=== PATIENT | male | born 1965 | race Caucasian/White ===

== ENCOUNTER 2022-06-01 04:51 | Inpatient (IN) | payer OTHER, SELFPAY ==
--- NOTE | 2022-06-01 05:20 | ER ---
Nurse's Notes [facility] Name: Cristobal Eduardo Age: 57 yrs Sex: Male : 1965 Arrival Date: 06/01/2022 Time: 04:53 Bed 19 Private MD: Diagnosis: Essential (primary) hypertension;Suicidal ideations;Suicide attempt-OVERDOSE CELEXA/Risperdone;Acute kidney failure, unspecified Presentation: 06/01 04:57 Chief complaint: EMS states: "We were called out to a man who allegedly took 40 vc1 citalopram and 10 Risperdal because he wanted to .". 04:57 Method Of Arrival: EMS: [facility] vc1 04:59 Chief complaint: Patient states: "I was afraid I was going to get in trouble when I vc1 went into work tomorrow so I took 40 Citalopram and 10 Risperdal.". Initial Sepsis Screen: Does the patient meet any 2 criteria? RR > 20 per min. HR > 90 bpm. Yes Does the patient have a suspected source of infection? No. Patient's initial sepsis screen is negative. Risk Assessment: Do you want to hurt yourself or someone else? Patient reports no desire to harm self or others. Onset of symptoms was May 31, 2022 at 19:30. 04:59 Acuity: SOCORRO 2 vc1 05:01 Coronavirus screen: Vaccine status: Patient reports receiving the 2nd dose of the covid vc1 vaccine. [employer]. Ebola Screen: No symptoms or risks identified at this time. 05:05 Note Poison control called spoke to Mally from [place], , aa9 recommendation to provided EKG now and repeat EKG in 2h, high seizure risk, HTN risk, 13 hours observation, cardiac monitoring,and supportive care. Triage Assessment: 05:01 General: Appears distressed, uncomfortable, obese, unkempt, Behavior is cooperative, vc1 anxious, Smells of Urine. 05:01 Pain: Denies pain. EENT: Eyes with exudate noted from outer aspect of conjuctiva of vc1 right eye. Neuro: Level of Consciousness is awake, obeys commands, Oriented to person, place, time, situation, Appropriate for age Gear Machine Operator are equal bilaterally Weakness leg(s) Gait is unable to access. Speech is normal, Pupils are constricted. Cardiovascular: Reports diaphoresis, Denies chest pain, Rhythm is sinus tachycardia. Respiratory: Airway is patent Respiratory effort is even, unlabored, Respiratory pattern is tachypnea. GI: No deficits noted. : patient underwear soaked in urine. Derm: Skin is intact, Skin is diaphoretic, Skin is pale, Skin temperature is cool. Musculoskeletal: Reports weakness in right leg and left leg. Historical: - Allergies: 05:01 No Known Allergies; vc1 - PMHx: 05:01 Hypertensive disorder; Pre-diabetic; vc1 - PSHx: 05:01 None; vc1 - Immunization history:: Adult Immunizations up to date. - Social history:: Smoking status: Patient denies any tobacco usage or history of. - Family history:: not pertinent. Screenin:01 Abuse screen: Denies threats or abuse. Nutritional screening: No deficits noted. vc1 Tuberculosis screening: No symptoms or risk factors identified. Fall Risk None identified. Assessment: 05:30 Reassessment: No changes from previously documented assessment. vc1 06:30 Reassessment: No changes from previously documented assessment. Patient and/or family vc1 updated on plan of care and expected duration. Pain level reassessed. Neuro: Level of Consciousness is awake, obeys commands. Respiratory: Respiratory effort is even, unlabored, Respiratory pattern is tachypnea. 07:18 General: Appears in no apparent distress. comfortable, Behavior is calm, cooperative. tp1 General: appears diaphoretic, denies chest pain, provider notified. . 07:55 Reassessment: 373.61 residual urine reported by video game technician. tp1 08:01 Reassessment: voided 2 mL, provider notified. tp1 08:36 Reassessment: appears diaphoretic and shaking. PT reports being shaking since SI tp1 attempt. 08:55 Reassessment: Shannon from Poison control Called back for a reassessment of patient tp1 status. recommended giving Magnesium for prolongated QT interval. provider notified. 08:58 Reassessment: No changes from previously documented assessment. Patient and/or family tp1 updated on plan of care and expected duration. Pain level reassessed. mother at bedside Patient denies pain at this time. 15:54 Reassessment: Tanna from poison control updated regarding PT status. tp1 17:08 Reassessment: attempted to give report. tp1 17:19 Reassessment: attempted to give report. tp1 17:22 Reassessment: Charge, Cristela ZAPATA, left message with Salbador. tp1 17:24 Reassessment: attempted to give report to Kena ZAPATA. tp1 17:44 Reassessment: report given to Jean Claude ZAPATA. tp1 Psych: 06:48 [place] Suicide Severity Screening: In the past month, have you wished you were vc1 or wished you could go to sleep and not wake up? Patient responds "yes." Based off the client's responses additional C-SSRS screening is required. "In the past month, have you actually had any thoughts of killing yourself?" Patient responds "yes." Based off the client's response additional [place] suicide severity screening questions to be further documented on paper forms. "In your lifetime, have you ever done anything, started to do anything, or prepared to do anything to end your life?" Patient responds "yes." Patient reports suicidal intent occurred greater than 3 months prior. Pt stated, "A year ago I also took pills trying to kill myself but afterwards I got scared and called 911.". Subjective: Patient's mood is sad, Delusions are denied, Hallucinations are denied Having thoughts of suicide. Plan for suicide is Take pills. Objective: Patient is cooperative, using poor eye contact, Speech is normal, Affect is flat. Interventions: Removed personal items and placed in bag. Patient placed in hospital gown. Searched person for dangerous items. Safety Checks: Personal items have been removed. Door is open. No visitors are present at this time. Pt denies substance abuse. Commitment: Patient will be an involuntary commitment. Commitment papers completed. Vital Signs: 04:57 BP 193 / 114; Pulse 114; Resp 38; Temp 98.4(O); Pulse Ox 97% on R/A; Weight 113.4 kg; vc1 Height 5 ft. 5 in. (165.10 cm); Pain 0/10; 05:00 BP 165 / 104; Pulse 113; Resp 23; Pulse Ox 96% ; vc1 06:00 BP 178 / 116; Pulse 106; Resp 39; Pulse Ox 96% ; vc1 06:30 BP 173 / 109; Pulse 108; Resp 35; Pulse Ox 95% ; vc1 07:11 BP 183 / 102; Pulse 108; Resp 36; Pulse Ox 100% on R/A; tp1 08:00 BP 194 / 104; Pulse 103; Resp 36; Pulse Ox 93% on R/A; tp1 09:00 BP 176 / 93; Pulse 120; Resp 39; Pulse Ox 96% on R/A; tp1 04:57 Body Mass Index 41.60 (113.40 kg, 165.10 cm) vc1 ED Course: 04:53 Patient arrived in ED. vc1 04:56 Vladimir Hernandez MD is Attending Physician. osorio 05:01 Triage completed. vc1 05:01 Arm band placed on left wrist. vc1 05:01 Patient has correct armband on for positive identification. Placed in gown. Bed in low vc1 position. Side rails up X2. Seizure precautions initiated. Client placed on continuous cardiac and pulse oximetry monitoring. NIBP monitoring applied. Warm blanket given. 05:01 Patient is placed in psych hold. vc1 05:18 Josseline Srivastava, BENNY is Primary Nurse. aa9 05:26 Chest Single View XRAY In Process Unspecified. EDMS 07:15 Safety Checks: Personal items have been removed. The door is open or patient has been tp1 placed in a hallway bed/chair. There are no family/friend visitors at this time Sitter present at this time. 07:21 Khai Smith MD is Hospitalizing Provider. [facility] 08:07 US Rp Exam Complete In Process Unspecified. EDMS 08:08 Urinary Bladder In Process Unspecified. EDMS 08:09 Notified ED physician of other report post void bladder scan 373. [id number] 08:14 Safety Checks: Personal items have been removed. The door is open or patient has been tp1 placed in a hallway bed/chair. There are no family/friend visitors at this time Sitter present at this time. 08:16 Coud inserted, using sterile technique, 16 Fr. Returned clear yellow urine. To gravity tp1 drainage. inserted by Dr. Hernandez. 08:35 Assisted to bathroom. Linen changed. tp1 09:14 Safety Checks: Personal items have been removed. The door is open or patient has been tp1 placed in a hallway bed/chair. A family member and/or friend is present and encouraged to stay. Sitter present at this time. 16:53 Primary Nurse role handed off by Josseline Srivastava RN tp1 16:53 Leidy Wade, RN is Primary Nurse. tp1 17:57 No provider procedures requiring assistance completed. Patient admitted, IV remains in tp1 place. Administered Medications: 05:24 Drug: NS 0.9% 1000 ml Route: IV; Rate: 1 bolus; Site: left antecubital; as6 08:35 Drug: Norvasc (amlodipine) 10 mg Route: PO; tp1 14:15 Follow up: Response: Blood pressure is lowered tp1 09:01 Drug: Flomax (tamsulosin) 0.4 mg Route: PO; tp1 14:16 Follow up: Response: No adverse reaction tp1 09:02 Drug: Insulin Regular Human 5 units {Co-Signature: vg1 (Kristen Rosas RN).} {Note: tp1 adminsinstered R deltoid SQ, Lorin RN notified.} Route: IVP; Site: Other; 14:15 Follow up: Response: Blood sugar is lowered tp1 09:04 Drug: Rocephin (cefTRIAXone) 1 grams Route: IV; Rate: per protocol; Site: left forearm; tp1 09:57 Follow up: IV Status: Completed infusion; IV Intake: 100ml tp1 14:16 Follow up: Response: No adverse reaction tp1 14:14 Not Given (VO to discontinue from Dr. Bautista): Semaglutide Pen Injector 25 mg Sub-Q tp1 once Medication: 06:48 VIS not applicable for this client. vc1 Intake: 09:57 IV: 100ml; Total: 100ml. tp1 Outcome: 05:19 ER care complete, transfer ordered by . osorio 07:23 Decision to Hospitalize by Provider. osorio 17:57 Admitted to Med/surg accompanied by tech, family with patient, via stretcher, Report tp1 called to Jean Claude ZAPATA 17:57 Condition: good 17:57 Instructed on the need for admit, Demonstrated understanding of instructions. 17:58 Patient left the ED. tp1 Signatures: Dispatcher [employer] EDVladimir Solo MD MD cha Davies, Jonathon, RN RN jd3 Slawson, Ashby, RN RN as6 Leidy Wade RN RN tp1 Lauryn Goddard RN RN vc1 Josseline Srivastava, RN RN aa9 Kristen Rosas RN vg1 Corrections: (The following items were deleted from the chart) 06:48 06:46 Arm band placed on left wrist. vc1 vc1 08:58 08:55 Reassessment: Poison control Called back for a reassessment of patient status. tp1 recommended giving Magnesium for prolongated QT interval. provider notified. tp1 17:33 15:54 Reassessment: Tanna from poison control updated regarding tp1 tp1
--- NOTE | 2022-06-01 05:21 | EDPHYS ---
Physician Documentation [facility] Name: Cristobal Eduardo Age: 57 yrs Sex: Male : 1965 Arrival Date: 06/01/2022 Time: 04:53 Bed 19 Private MD: ED Physician Vladimir Hernandez HPI: 06/01 05:10 This 57 yrs old Male presents to ER via EMS with complaints of suicidal osorio ideation/overdose. 05:10 The patient presents to the emergency department with depression, a history of a osorio suicide gesture, where the patient took pills/medications, 40 celexa/10 resperdial, suicide ideation. Onset: The symptoms/episode began/occurred 10 hour(s) ago. Past psychiatric history: Prior diagnosis: depression, Psychiatric medications include:. took pills, upset , fears trouble at work. Associated signs and symptoms: The patient has no apparent associated signs or symptoms. Onset: The symptoms/episode began/occurred 1 day(s) ago. Severity of symptoms: At their worst the symptoms were mild in the emergency department the symptoms are unchanged. The patient has experienced similar episodes in the past, a few times. Historical: - Allergies: 05:01 No Known Allergies; vc1 - PMHx: 05:01 Hypertensive disorder; Pre-diabetic; vc1 - PSHx: 05:01 None; vc1 - Immunization history:: Adult Immunizations up to date. - Social history:: Smoking status: Patient denies any tobacco usage or history of. - Family history:: not pertinent. ROS: 05:10 Constitutional: Negative for fever, chills, and weight loss, Eyes: Negative for injury, osorio pain, redness, and discharge, ENT: Negative for injury, pain, and discharge, Neck: Negative for injury, pain, and swelling, Cardiovascular: Negative for chest pain, palpitations, and edema, Respiratory: Negative for shortness of breath, cough, wheezing, and pleuritic chest pain, Abdomen/GI: Negative for abdominal pain, nausea, vomiting, diarrhea, and constipation, Back: Negative for injury and pain, : Negative for injury, bleeding, discharge, and swelling, MS/Extremity: Negative for injury and deformity, Skin: Negative for injury, rash, and discoloration, Neuro: Negative for headache, weakness, numbness, tingling, and seizure, Allergy/Immunology: Negative for hives, rash, and allergies, Endocrine: Negative for neck swelling, polydipsia, polyuria, polyphagia, and marked weight changes, Hematologic/Lymphatic: Negative for swollen nodes, abnormal bleeding, and unusual bruising. 05:10 Psych: Positive for anxiety, depression, suicide gesture, suicidal ideation. Exam: 05:10 Constitutional: This is a well developed, well nourished patient who is awake, alert, osorio and in no acute distress. Head/Face: Normocephalic, atraumatic. Eyes: Pupils equal round and reactive to light, extra-ocular motions intact. Lids and lashes normal. Conjunctiva and sclera are non-icteric and not injected. Cornea within normal limits. Periorbital areas with no swelling, redness, or edema. ENT: Nares patent. No nasal discharge, no septal abnormalities noted. Tympanic membranes are normal and external auditory canals are clear. Oropharynx with no redness, swelling, or masses, exudates, or evidence of obstruction, uvula midline. Mucous membranes moist. Neck: Trachea midline, no thyromegaly or masses palpated, and no cervical lymphadenopathy. Supple, full range of motion without nuchal rigidity, or vertebral point tenderness. No Meningismus. Chest/axilla: Normal chest wall appearance and motion. Nontender with no deformity. No lesions are appreciated. Abdomen/GI: Soft, non-tender, with normal bowel sounds. No distension or tympany. No guarding or rebound. No evidence of tenderness throughout. Back: No spinal tenderness. No costovertebral tenderness. Full range of motion. Male : Normal genitalia with no discharge or lesions. MS/ Extremity: Pulses equal, no cyanosis. Neurovascular intact. Full, normal range of motion. Neuro: Awake and alert, GCS 15, oriented to person, place, time, and situation. Cranial nerves II-XII grossly intact. Motor strength 5/5 in all extremities. Sensory grossly intact. Cerebellar exam normal. Normal gait. 05:10 Cardiovascular: Rate: tachycardic, Rhythm: regular, Pulses: Pulses are 4+ in . Heart sounds: normal, Edema: is not appreciated, JVD: is not appreciated. 05:10 ECG was reviewed by the Attending Physician. 07:17 ECG was reviewed by the Attending Physician. [facility] Vital Signs: 04:57 BP 193 / 114; Pulse 114; Resp 38; Temp 98.4(O); Pulse Ox 97% on R/A; Weight 113.4 kg; vc1 Height 5 ft. 5 in. (165.10 cm); Pain 0/10; 05:00 BP 165 / 104; Pulse 113; Resp 23; Pulse Ox 96% ; vc1 06:00 BP 178 / 116; Pulse 106; Resp 39; Pulse Ox 96% ; vc1 06:30 BP 173 / 109; Pulse 108; Resp 35; Pulse Ox 95% ; vc1 07:11 BP 183 / 102; Pulse 108; Resp 36; Pulse Ox 100% on R/A; tp1 08:00 BP 194 / 104; Pulse 103; Resp 36; Pulse Ox 93% on R/A; tp1 09:00 BP 176 / 93; Pulse 120; Resp 39; Pulse Ox 96% on R/A; tp1 04:57 Body Mass Index 41.60 (113.40 kg, 165.10 cm) vc1 Procedures: 08:17 Coud inserted by myself - 16 Fr. Urine output = 300 ml's. Patient tolerated well. osorio MDM: 04:56 Patient medically screened. osorio 05:21 Differential diagnosis: drug withdrawal. acute psychotic break, depression, psychosis osorio secondary to non-compliance. Differential Diagnosis altered mental status. Data reviewed: vital signs, nurses notes, lab test result(s), EKG, radiologic studies, CT scan, plain films. Data interpreted: bus driver/monitor: rate is 114 beats/min, rhythm is regular, Pulse oximetry: on room air is 97 %. Test interpretation: by ED physician or midlevel provider: ECG, plain radiologic studies. Counseling: I had a detailed discussion with the patient and/or guardian regarding: the historical points, exam findings, and any diagnostic results supporting the discharge/admit diagnosis, lab results, radiology results. 06/01 05:09 Order name: Acetaminophen; Complete Time: 07:14 osorio 06/01 05:09 Order name: Basic Metabolic Panel; Complete Time: 07:14 osorio 06/01 05:09 Order name: CBC with Diff; Complete Time: 07:14 osorio 06/01 05:09 Order name: ETOH Level; Complete Time: 07:14 osorio 06/01 05:09 Order name: Hepatic Function; Complete Time: 07:14 osorio 06/01 05:09 Order name: PT-INR; Complete Time: 07:14 [facility] 06/01 05:09 Order name: Ptt, Activated; Complete Time: 07:14 [facility] 06/01 05:09 Order name: Salicylate; Complete Time: 07:14 [facility] 06/01 05:09 Order name: Urine Drug Screen; Complete Time: 08:16 [facility] 06/01 05:09 Order name: SARS RAPID; Complete Time: 07:14 [facility] 06/01 05:09 Order name: BNP; Complete Time: 07:14 [facility] 06/01 07:43 Order name: Urine Dipstick-Ancillary; Complete Time: 08:16 EDMS 06/01 09:17 Order name: CBC with Automated Diff EDMS 06/01 09:17 Order name: CBC with Automated Diff EDMS 06/01 05:09 Order name: Chest Single View XRAY [facility] 06/01 07:34 Order name: US Rp Exam Complete [facility] 06/01 08:08 Order name: Urinary Bladder EDMS 06/01 09:17 Order name: Comprehensive Metabolic Panel EDMS 06/01 09:17 Order name: Comprehensive Metabolic Panel EDMS 06/01 09:17 Order name: Magnesium EDMS 06/01 09:17 Order name: Magnesium EDMS 06/01 09:17 Order name: Phosphorus EDMS 06/01 09:17 Order name: Phosphorus EDMS 06/01 09:19 Order name: Magnesium EDMS 06/01 12:37 Order name: Glucose, Ancillary Testing EDMS 06/01 16:38 Order name: Glucose, Ancillary Testing EDMS 06/01 05:09 Order name: EKG; Complete Time: 05:10 [facility] 06/01 05:09 Order name: EKG - Nurse/Tech; Complete Time: 05:47 [facility] 06/01 05:09 Order name: IV Saline Lock; Complete Time: 05:47 [facility] 06/01 05:09 Order name: Labs collected and sent; Complete Time: 05:47 [facility] 06/01 05:09 Order name: Suicide Precautions; Complete Time: 06:42 [facility] 06/01 05:09 Order name: Suicide Screening ([place]); Complete Time: 06:42 [facility] 06/01 05:09 Order name: Urine Dipstick-Ancillary (obtain specimen); Complete Time: 16:52 [facility] 06/01 05:21 Order name: King; Complete Time: 16:51 [facility] 06/01 06:34 Order name: Diet Finger Food; Complete Time: 06:34 lg3 06/01 07:34 Order name: Bladder Scanner: if pvr greater than 100, place king; Complete Time: 16:51 osorio 06/01 08:16 Order name: Seizure Precautions; Complete Time: 08:17 osorio 06/01 09:17 Order name: Regular EDMS 06/01 10:07 Order name: Diet Finger Food; Complete Time: 10:08 tp1 06/01 15:57 Order name: Diet Finger Food; Complete Time: 22:31 em6 EC:17 Rate is 103 beats/min. Rhythm is regular. QRS [place] is Normal. OK interval is normal. osorio QRS interval is normal. QT interval is prolonged at 544 msec. No Q waves. T waves are Normal. No ST changes noted. Clinical impression: NSR w/ Non-specific ST/T Changes and No evidence of ischemia. Interpreted by me. Reviewed by me. Administered Medications: 05:24 Drug: NS 0.9% 1000 ml Route: IV; Rate: 1 bolus; Site: left antecubital; as6 08:35 Drug: Norvasc (amlodipine) 10 mg Route: PO; tp1 14:15 Follow up: Response: Blood pressure is lowered tp1 09:01 Drug: Flomax (tamsulosin) 0.4 mg Route: PO; tp1 14:16 Follow up: Response: No adverse reaction tp1 09:02 Drug: Insulin Regular Human 5 units {Co-Signature: vg1 (Kristen Rosas RN).} {Note: tp1 adminsinstered R deltoid SQ, Lorin ZAPATA notified.} Route: IVP; Site: Other; 14:15 Follow up: Response: Blood sugar is lowered tp1 09:04 Drug: Rocephin (cefTRIAXone) 1 grams Route: IV; Rate: per protocol; Site: left forearm; tp1 09:57 Follow up: IV Status: Completed infusion; IV Intake: 100ml tp1 14:16 Follow up: Response: No adverse reaction tp1 14:14 Not Given (VO to discontinue from Dr. Bautista): Semaglutide Pen Injector 25 mg Sub-Q tp1 once Disposition Summary: 06/01/22 07:23 Hospitalization Ordered Hospitalization Status: Inpatient Admission osorio Provider: Khai Smith osorio Condition: Fair(09/06/22 07:23) osorio Problem: new(06/01/22 07:23) osorio Symptoms: have improved(06/01/22 07:23) osorio Bed/Room Type: Standard osorio Location: Telemetry/MedSurg (Inpatient)(06/01/22 16:58) em1 Room Assignment: 401(06/01/22 16:58) em1 Diagnosis - Essential (primary) hypertension osorio - Suicidal ideations(06/01/22 07:23) osorio - Suicide attempt - OVERDOSE CELEXA/Risperdone(06/01/22 07:23) osorio - Acute kidney failure, unspecified osorio Forms: - Medication Reconciliation Form osorio - SBAR form osorio Signatures: Dispatcher [employer] EDMS Vladimir Hernandez MD MD cha Martinez, Eric em1 Aryan Valentino, BENNY RN as6 Leidy Wade RN RN tp1 Lauryn Goddard RN RN vc1 Kristen Rosas RN vg1 Corrections: (The following items were deleted from the chart) 07:16 05:19 to psych osorio osorio 07:16 05:19 Psych Facility osorio osorio 07:16 05:19 Higher level of care osorio osorio 07:16 05:19 Stable osorio osorio 07:16 05:19 new osorio osorio 07:16 05:19 have improved osorio osorio 07:16 05:19 Adjustment disorder with depressed mood osorio osorio 07:16 05:19 Suicide attempt osorio osorio 07:16 05:19 Suicidal ideations osorio osorio 07:18 05:10 Rate is 103 beats/min. Rhythm is regular. QRS [place] is Normal. OK interval is osorio normal. QRS interval is normal. QT interval is normal. No Q waves. T waves are Normal. No ST changes noted. Clinical impression: NSR w/ Non-specific ST/T Changes, Sinus tachycardia, and No evidence of ischemia. Interpreted by me. Reviewed by me. osorio :58 07:23 Intensive Care Unit osorio em1 :58 07:23 osorio em1
[2022-06-01] MEDS ORDERED: NA CHLORIDE 0.9% 1,000 ML ONE ×3 (05:32→12:49)
[2022-06-01 05:47] LABS: Absolute Lymphocytes (CBC) 1.3 K/uL (0.7-4.9); Hematocrit 46.1 % (39.6-49.0); Lymphocytes % 10.1 % (15.3-44.8); MCV 85.6 fL (80-100); MPV 8.3 fL (7.6-11.3); RBC Red Blood Cell Count 5.38 M/uL (4.33-5.43)
[2022-06-01 06:26] LABS: SARS-CoV-2 Antigen Rapid Res Negative (Negative)
[2022-06-01 06:35] LABS: Protime INR 0.97
[2022-06-01 06:58] LABS: ALT/SGPT 31 U/L (12-78); AST/SGOT 14 U/L (15-37); Albumin 3.7 g/dL (3.4-5.0); Alkaline Phosphatase 107 U/L (45-117); BUN Blood Urea Nitrogen 26 mg/dL (7-18); Bicarbonate 19 mmol/L (21-32); Bilirubin Direct 0.1 mg/dL (0-0.2); Bilirubin Total 0.3 mg/dL (0.2-1.0); Glomerular Filtration Rate 32 ml/min (=/>90); Glucose Level 331 mg/dL (74-106); NT PRO-BNP 568 pg/mL (<125); Potassium 4.1 mmol/L (3.5-5.1); Protein, Total 7.5 g/dL (6.4-8.2); Sodium Level 140 mmol/L (136-145)
[2022-06-01 07:43] LABS: Urine Blood Trace-intact (Negative); Urine Glucose 3+ (Negative); Urine Protein 2+ (Negative); Urine Specific Gravity 1.025 (1.005-1.030); Urine pH 5.5 (5.0-7.0)
[2022-06-01 08:07] LABS: Barbiturates NEGATIVE (NEGATIVE); Benzodiazepines NEGATIVE (NEGATIVE); Cocaine NEGATIVE (NEGATIVE); METHAMPHETAM NEGATIVE (NEGATIVE); Methadone NEGATIVE (NEGATIVE); Opiates NEGATIVE (NEGATIVE); Phencyclidine NEGATIVE (NEGATIVE); THC Cannibis NEGATIVE (NEGATIVE)
[2022-06-01] MEDS ORDERED: LIDOCAINE VISCOUS 2% SOLN 15 ML UDC ONE (08:18)
--- NOTE | 2022-06-01 08:21 | RAD REPORT ---
EXAM DESCRIPTION: US - Renal Ultrasound-Complete - 06/01/2022 8:01 am CLINICAL HISTORY: PAIN COMPARISON: No comparisons FINDINGS: The right kidney measures 11.1 x 5.8 x 4.9 cm. The left kidney measures 9.6 x 4.9 x 4.5 c m. Renal cortical thickness and echogenicity are normal. No hydronephrosis or suspicious mass of eith er kidney. Small benign cortical cysts are present. There are small shadowing and nonshadowing echoge alena foci in each renal hilum believed to be nonobstructing calyx calculi. No bladder wall thickening or mass. The patient voided approximately 20 minutes prior to the examinat ion. At the time of this study the bladder volume was 374 mL. Gallbladder was incidentally imaged as part of this study and shows numerous gallstones filling the l umen. IMPRESSION: No hydronephrosis or suspicious renal mass. Nonobstructing calyx calculi are present. Bladder volume was 374 mL. Patient had voided approximately 20 minutes prior to the study. Incidental note of multi stone cholelithiasis. Gallbladder and biliary tree are not fully assessed on this study.
--- NOTE | 2022-06-01 08:22 | RAD REPORT ---
EXAM DESCRIPTION: US - Urinary Bladder - 06/01/2022 8:05 am CLINICAL HISTORY: PVR COMPARISON: No comparisons FINDINGS: Urinary bladder shows no wall thickening or mass. No stone or other abnormality within the lumen. Patient voided 20 minutes prior to the examination. Bladder volume at the time of the study was 374 m L.
[2022-06-01] MEDS ORDERED: CEFTRIAXONE 1000 MG/VIAL ONE (08:40)
[2022-06-01] MEDS ORDERED: AMLODIPINE 10 MG TAB ONE (08:40)
[2022-06-01] MEDS ORDERED: NA CHLORIDE 0.9% 50 ML ONE (08:42)
[2022-06-01] MEDS ORDERED: INSULIN -REGULAR HUMAN 50 UNIT/0.5 ML ML ONE (08:42)
[2022-06-01] MEDS ORDERED: TAMSULOSIN 0.4 MG SR CAP ONE (09:00)
[2022-06-01] MEDS ORDERED: ONDANSETRON 4 MG/2 ML VIAL IV PRN (09:11)
[2022-06-01] MEDS ORDERED: ACETAMINOPHEN 325 MG TABLET PO PRN (09:45)
[2022-06-01] MEDS ORDERED: Magnesium Sulfate 2gm IVPB 2 G/50 ML BAG IV ONE ×2 (10:00→12:12)
--- NOTE | 2022-06-01 10:30 | P.HP ---
Certification for Inpatient Patient admitted to: Inpatient With expected LOS: >2 Midnights Practitioner: I am a practitioner with admitting privileges, knowledge of patient current condition, hospital course, and medical plan of care. Services: Services provided to patient in accordance with Admission requirements found in Title 42 Section 412.3 of the Code of Federal Regulations Patient History Date of Service: 06/01/22 Reason for admission: Suicide attempt, weakness. History of Present Illness: 57-year-old male patient with a medical history significant diabetes type 2, hy pertension, history of chronic kidney disease for which he reported that he follows up with outpatient him specialist who was evaluated in the emergency room after he took significant amounts of buspirone and Abilify for suicide. He reported that his job stress is the major reason why he had significant psychological issues and he decided to take pills to somewhat relieve his distress. At the time of encounter patient denied any suicidal or homicidal ideation, hallucinations, shortness of breath, fever, chills, rigor, nausea, vomiting. He did have episode of weakness and he was evaluated by ER doctor in conjunction with Poison Control Center. He had prolonged QT interval with measured interval of 540 and he was asked to be evaluated as inpatient for medical clearance prior to mental health evaluation. At the time of this encounter patient denied persistent chest discomfort, nausea, vomiting, excessive weakness. He denies headache. He denies blurry vision, dizzy spells. Labs done in the ER was pertinent for elevated creatinine of 2.3 with metabolic acidemia with a bicarb of 19. He also did have elevated blood glucose and significant glycosuria and red blood cell in urine. Allergies No Known Allergies Allergy (Unverified 06/01/22 09:44) Home medications list reviewed: Yes - Past Medical/Surgical History Diabetic: Yes -: Hypertension -: CKD -: Obesity - Social History Smoking Status: Unknown if ever smoked Alcohol use: No Review of Systems 10-point ROS is otherwise unremarkable Physical Examination - Physical Exam General: Alert, Oriented x3 HEENT: Atraumatic, Normocephalic Neck: Supple Respiratory: Normal air movement Cardiovascular: Regular rate/rhythm, Normal S1 S2 Gastrointestinal: Soft and benign Musculoskeletal: No swelling Integumentary: No breakdown Neurological: Normal speech, Normal strength at 5/5 x4 extr - Studies Laboratory Data (last 24 hrs) 06/01/22 05:15: PT 10.7, INR 0.97, APTT 29.1 06/01/22 05:15: WBC 12.50 H, Hgb 15.5, Hct 46.1, Plt Count 196 06/01/22 05:15: Sodium 140, Potassium 4.1, BUN 26 H, Creatinine 2.32 H, Glucose 331 H, Total Bilirubin 0.3, AST 14 L, ALT 31, Alkaline Phosphatase 107 Assessment and Plan - Plan Parasuicide. Deemed due to work stressas per pt report. Has been evaluated in conjuction with poison control center. we will continue on telemetry monitoring. Psych has been consulted. we will follow closely. suicide precautions started. DM 2. has been on SSI for as needed glucose control. we will continue on carb restricted diet. Hypertension. Will monitor blood pressure per unit protocol and continue oral antihypertensive medications. Chronic kidney disease stage III/IV Episode of chronic kidney disease is deemed secondary to longstanding diabetes and hypertension however with present clinical presentation there is significant concern for ischemic ATN from osmotic diuresis stemming from glycosuria. Nephrology consulted for management recommendation. Isotonic fluid hydration started. Further management recommendation as per nephrology team. Metabolic Acidemia Bicarbonate is low at 19. Nephrology consulted for management recommendation. Proteinuria Suspected due to CKD and diabetic nephropathy. Nephrology consulted for management recommendation. Prophylaxis: Heparin for DVT. Code status:Full code. Disposition: Pending psych eval and medical clearance. - Advance Directives Does patient have a Living Will: No Does patient have a Durable POA for Healthcare: No - Code Status/Comfort Care Code Status Assessed: Yes Code Status: Full Code
--- NOTE | 2022-06-01 10:38 | RAD REPORT ---
EXAM DESCRIPTION: RAD - Chest Single View - 06/01/2022 5:24 am CLINICAL HISTORY: The patient is 57 years old and is Male; COUGH TECHNIQUE: Single view of the chest. COMPARISON: No relevant prior studies available. FINDINGS: Lungs: No pulmonary vascular congestion or consolidation. Pleural space: Unremarkable. No pneumothorax. Heart: The cardiac silhouette is enlarged versus artifact of AP technique. Mediastinum: Unremarkable. Bones/joints: No acute fracture visualized. Upper abdomen: No free air in the visualized upper abdomen. IMPRESSION: No acute cardiopulmonary process identified. Electronically signed by: Elena Santiago MD 06/01/2022 5:33 AM CDT Due to temporary technical issues with the PACS/Fluency reporting system, reports are being signed by the in house radiologists without review as a courtesy to insure prompt reporting. The interpreting radiologist is fully responsible for the content of the report.
[2022-06-01] MEDS: INSULIN -REGULAR HUMAN 50 UNIT/0.5 ML ML SQ SCH ×3 (11:30→21:17)
[2022-06-01] MEDS ORDERED: NA CHLORIDE 0.9% 1,000 ML IV ONE (11:35)
[2022-06-01] MEDS: NA CHLORIDE 0.9% 1,000 ML IV SCH (12:20)
--- NOTE | 2022-06-01 12:46 | CON ---
Date of Consultation: 06/01/2022 Reason For Consultation: Elevated BUN and creatinine, fluid management, proteinuria. History Of Present Illness: This is a 57-year-old gentleman with significant past medical history of diabetes since 2014 complicated with retinopathy, no neuropathy, hypertension since 1989, the patient known to have chronic kidney disease, follows up with restaurant district manager at [place]. The patient came to the hospital after suicidal attempt with buspirone and Abilify. The patient denied any seizure. The patient does not know any baseline creatinine. The patient complaining from nocturia. Upon arrival to the hospital, the patient could not urinate. Sánchez was inserted and there were 500 mL of urine. Past Medical History: Includes; 1. Diabetes since 2014 complicated with retinopathy. 2. Hypertension since 1998. 3. Hyperlipidemia. 4. Obesity. 5. Depression. Past Surgical History: Negative. Allergies: NO KNOWN DRUG ALLERGIES. Social History: Denied smoking. Denied drinking. Denied drug abuse. Review of Systems: Head and Neck: No red eye. No ear pain. GI: No nausea. No vomiting. : No polyuria. No dysuria. No hematuria. Structures Technician: Not applicable. Respiratory: No shortness of breath. Cardiovascular: No chest pain. Endocrine: No polydipsia. Skin: No rash. Neuro: No neuropathy. Musculoskeletal: No joint pain. Psych: Has suicidal attempt. Physical Examination: General: When I saw the patient; the patient lying in bed, comfortable, not on any distress. Vital Signs: Blood pressure 113/65, pulse of 88. Chest: Clear to auscultation. Heart: S1, S2. Regular. Abdomen: Soft, nontender. Extremities: No edema. Neurological: Alert, oriented x3. No focal. Laboratory Data: WBC 12.5, H and H 15.5/46.1. Sodium 140, potassium 4.1, bicarb 19, BUN 26, creatinine 2.3, glucose 331, calcium 8.4, albumin 3.7. Current Medications: The patient on is normal saline, Tylenol, heparin. Assessment And Plan: 1. Acute kidney injury secondary to poor perfusion, ATN, superimposed with dehydration and glucose diuresis, questionable of obstructive uropathy given the high residual normal sized kidney 11.1/9.6 with renal cyst, looked to me still on the dry side. I am going to bolus the patient with normal saline and we will continue hydration. We will send for basic workup including PC ratio and PTH to evaluate the chronicity of the disease and we will follow up the patient. Avoid any MONI inhibitor or ARB for the time being. 2. Hypertension. Avoid any MONI inhibitor or ARB. We will monitor. 3. Acidosis, non-anion gap metabolic acidosis secondary to dehydration and renal failure. We will start hydration and we will follow up. I do not see the need for any bicarb for the time being. 4. Proteinuria. We will quantify the proteinuria. We will follow up. Possible secondary to diabetes. We will follow up. If kidney function did not improve on the hydration, we will consider sending for serology. 5. Diabetes, not controlled as by primary. We will start hydration. 6. Suicidal as by primary. Thank you, Dr. Smith for allowing us to participate in the care of your patient. time spend exam the patient face to face . reviewing the data lab and radiology , placing order , discussing the case with the patient and staff including nurse and hospitalist 65 min LINDA Voice ID: [id number] Report ID: [id number] MTDD
--- NOTE | 2022-06-01 14:30 | EKG ---
Test Date: 2022-06-01 Test Time: 05:07:19 Psychodramatist: MEASUREMENT RESULTS: Intervals: Rate: 103 MA: 116 QRSD: 86 QT: 416 QTc: 544 [place]: P: 7 MA: 116 QRS: 13 T: 90 INTERPRETIVE STATEMENTS: Sinus tachycardia Nonspecific T wave abnormality Prolonged QT Abnormal ECG No previous ECG available for comparison Electronically Signed On 06-01-22 14:29:03 CDT by Chucky Ellington
[2022-06-01 15:28] VITALS: BMI 41.5
[2022-06-01] MEDS: HEPARIN 5000 UNIT/ML 1 ML VIAL SQ SCH (17:00)
[2022-06-01] MEDS: TAMSULOSIN 0.4 MG SR CAP PO SCH (21:12)
[2022-06-01] MEDS: HYDRALAZINE HCL 20 MG/ML VIAL IV PRN (21:38)
[2022-06-02] MEDS: HEPARIN 5000 UNIT/ML 1 ML VIAL SQ SCH ×3 (01:44→16:42)
[2022-06-02 04:43] LABS: Absolute Lymphocytes (CBC) 1.6 K/uL (0.7-4.9); Hematocrit 41.6 % (39.6-49.0); Lymphocytes % 12.2 % (15.3-44.8); MPV 7.8 fL (7.6-11.3); RBC Red Blood Cell Count 4.89 M/uL (4.33-5.43)
[2022-06-02 05:01] LABS: Albumin 3.5 g/dL (3.4-5.0); Bilirubin Total 0.7 mg/dL (0.2-1.0); Magnesium 2.3 mg/dL (1.8-2.4); Phosphorus 2.2 mg/dL (2.5-4.9); Potassium 3.9 mmol/L (3.5-5.1); Protein, Total 6.7 g/dL (6.4-8.2); Thyroid Stimulating Hormone 0.642 uIU/mL (0.360-3.740); Uric Acid 9.9 mg/dL (3.5-7.2)
[2022-06-02] MEDS: HYDRALAZINE HCL 20 MG/ML VIAL IV PRN ×2 (05:51→21:52)
[2022-06-02] MEDS: NA CHLORIDE 0.9% 1,000 ML IV SCH ×2 (05:51→12:34)
[2022-06-02] MEDS ORDERED: POTASSIUM CL SA 10 MEQ TAB PO ONE (09:00)
[2022-06-02] MEDS: INSULIN -REGULAR HUMAN 50 UNIT/0.5 ML ML SQ SCH ×4 (09:43→20:16)
[2022-06-02] MEDS ORDERED: CALCITROL 0.25 MCG CAP PO SCH (12:00)
--- NOTE | 2022-06-02 12:52 | PN ---
Date of Progress Note: 06/02/2022 Subjective: The patient was admitted with acute kidney injury secondary to prerenal, dehydration, se condary to over dose. The patient had acidosis. The patient known to have chronic kidney disease se condary to diabetes. Physical Examination: Vital Signs: Today; blood pressure 120/56, pulse of 119, afebrile. The patient had good urine outpu t of 1600. Chest: Clear to auscultation. Heart: S1, S2. Regular. Abdomen: Soft, nontender. Extremity: No edema. Neurologic: Alert. No focality. Laboratory Data: WBC 13.4, H and H 14.2/41.6. Sodium 142, potassium 3.9, bicarb 23, BUN 19, creatin ine 1.9, GFR 39, uric acid 9.9, calcium 7.8, phosphorus 2.2, magnesium 2.3. PTH 218. PC ratio is st ill pending. Current Medications: The patient on include; 1.Flomax. 2.Tylenol. 3.Zofran. 4.IV fluid. Assessment And Plan: 1.Acute kidney injury, multifactorial secondary to prerenal, dehydration, questionable of obstructiv e uropathy given the significant post void, on the recovery phase. We will continue current hydratio n as the patient has still poor intake, but I am going to decrease IV fluid to 50 per hour. The evelyn ent awaiting for Psych evaluation for inpatient psych. From renal standpoint, the patient is stable to be transferred. 2.Acidosis secondary to renal failure, recovered, resolved. No need for bicarb. 3.Hypokalemia. [place] diet. 4.Secondary hyperparathyroidism secondary to renal failure with the presence of hypocalcemia. I am going to start the patient on calcitriol and we will follow up. 5.Hypomagnesemia. We will supplement. 6.Chronic kidney disease, normal size kidney, multifactorial, secondary to diabetes nephropathy/hype rtension nephrosclerosis/obstructive uropathy with acute kidney injury as above. Keep holding MONI in hibitor or ARB for the time being. 7.Obstructive uropathy. The patient was started on Flomax. Continue Sánchez. 8.Hypertension, controlled, optimal. Continue current medication. Keep holding MONI inhibitor or AR BOpal HEALY/RUPINDER Voice ID: [id number] Report ID: [id number]
[2022-06-02] MEDS: TAMSULOSIN 0.4 MG SR CAP PO SCH (20:14)
[2022-06-03] MEDS: HEPARIN 5000 UNIT/ML 1 ML VIAL SQ SCH ×3 (00:17→16:47)
[2022-06-03 00:47] VITALS: O2SAT 96
[2022-06-03 04:01] LABS: Albumin 3.3 g/dL (3.4-5.0); Phosphorus 2.1 mg/dL (2.5-4.9); Potassium 3.8 mmol/L (3.5-5.1)
[2022-06-03] MEDS: HYDRALAZINE HCL 20 MG/ML VIAL IV PRN (05:34)
[2022-06-03] MEDS: NA CHLORIDE 0.9% 1,000 ML IV SCH (05:39)
[2022-06-03] MEDS: POTASS/SODIUM PHOSPHATE 1 PKT POWD.PACK PO SCH ×2 (06:06→09:30)
[2022-06-03] MEDS ORDERED: POTASSIUM CL SA 10 MEQ TAB PO ONE (09:00)
[2022-06-03] MEDS: INSULIN -REGULAR HUMAN 50 UNIT/0.5 ML ML SQ SCH ×3 (09:30→16:46)
--- NOTE | 2022-06-03 12:58 | P.PN ---
Subjective Date of Service: 06/02/22 Subjective: No new changes, No C/O voiced, Improving Review of Systems 10-point ROS is otherwise unremarkable Physical Examination - Vital Signs Temperature: 98.3 F Blood Pressure: 143/87 Pulse: 110 Respirations: 18 Pulse Ox (%): 96 - Physical Exam General: Alert, In no apparent distress HEENT: Atraumatic, PERRLA, EOMI Neck: Supple, JVD not distended Respiratory: Clear to auscultation bilaterally, Normal air movement Cardiovascular: Regular rate/rhythm, Normal S1 S2 Gastrointestinal: Normal bowel sounds, No tenderness Musculoskeletal: No tenderness Integumentary: No rashes Neurological: Normal speech, Normal tone, Normal affect Lymphatics: No axilla or inguinal lymphadenopathy - Studies Medications List Reviewed: Yes Assessment & Plan - Problems (Diagnosis) (1) AMS (altered mental status) Current Visit: Yes Status: Acute (2) Suicidal ideation Current Visit: Yes Status: Acute (3) JONAH (acute kidney injury) Current Visit: Yes Status: Acute - Plan Plan: 1. Continue gentle hydration-renal function improved 2. Psychiatry recommends inpatient psych 3. Out of bed and ambulate 4. Anticipate transfer once accepted - Advance Directives Does patient have a Living Will: No Does patient have a Durable POA for Healthcare: No - Code Status/Comfort Care Code Status: Full Code
--- NOTE | 2022-06-03 13:27 | PN ---
Date of Progress Note: 06/03/2022 Subjective: The patient was admitted with acute kidney injury, suicidal. The patient's acute kidney injury was on chronic kidney disease secondary to prerenal. The patient's after hydration kidney fu nction started being improving. The patient known to have chronic kidney disease before. The patien t had severe acidosis, has been recovering. Physical Examination: Vital Signs: Blood pressure 143/87, pulse of 110, afebrile. Chest: Clear to auscultation. Heart: S1, S2. Regular. Abdomen: Soft, nontender. Extremities: No edema. Neuro: Alert. No focality. Laboratory Data: WBC 13.4, H and H 14.2/41.6. Sodium 142, potassium 3.8, bicarb 20, BUN 17, creatin ine 1.9, GFR of 40, calcium of 8, phosphorus 2.1, albumin 3.3, corrected calcium 8.5. Current Medications: The patient on include Flomax 0.4, hydralazine, Tylenol, insulin, IV fluid at n ormal saline 50 per hour. Assessment And Plan: 1.Acute kidney injury, multifactorial, secondary to prerenal, dehydration, superimposed with a quest ionable obstructive uropathy with significant postvoid. Sánchez was inserted. Nonoliguric. No hyperk alemia. The patient's kidney function plateaued currently. I am going to discontinue IV fluid. We will continue to monitor the patient. 2.Acidosis secondary to renal failure, resolved. 3.Hypokalemia, resolved. 4.Secondary hyperparathyroidism secondary to renal failure with hypocalcemia. Yesterday, we started the patient on calcitriol. We will continue. 5.Hypomagnesemia, resolved. 6.Chronic kidney disease, normal-sized kidney, proteinuric secondary to diabetes, nephropathy, hyper tension nephrosclerosis, chronic obstructive uropathy. We will keep holding MONI inhibitor/ARB. We w ill monitor the patient. 7.Obstructive uropathy. The patient was started on Flomax. I am going to go ahead and discontinue Sánchez and we will check post void and we will follow up. NIRAJ/RUPINDER Voice ID: [id number] Report ID: [id number]
[2022-06-03] MEDS ORDERED: METOPROLOL TAR 50 MG TAB PO ONE (16:00)
[2022-06-03 16:28] VITALS: BP 141/70; TEMP 97.1
[2022-06-03] MEDS ORDERED: ALPRAZOLAM 0.25 MG TABLET PO ONE (17:00)
[2022-06-05 13:06] LABS: Vitamin D 1,25-Dihydroxy Total 38 pg/mL (18-72); Vitamin D,1,25-OH2, D2 <8 pg/mL
== END 2022-06-03 18:25 | DRG 917 ==
LOC: EDBD 04:51 → ER 04:51 → ERHOLD 09:11 → 4TH 17:46
PROVIDERS: ADMIT Internal Medicine Nephrology; ATTEND Hospitalist
DX: T43.591A Poisoning by other antipsychotics and neuroleptics, accidental (unintentional), initial encounter (principal); N17.0 Acute kidney failure with tubular necrosis; E87.2 Acidosis; N18.4 Chronic kidney disease, stage 4 (severe); Z68.41 Body mass index [BMI] 40.0-44.9, adult; E66.9 Obesity, unspecified; I12.9 Hypertensive chronic kidney disease with stage 1 through stage 4 chronic kidney disease, or unspecified chronic kidney disease; E11.22 Type 2 diabetes mellitus with diabetic chronic kidney disease; E78.5 Hyperlipidemia, unspecified; E86.0 Dehydration; N28.1 Cyst of kidney, acquired; Z91.51 Personal history of suicidal behavior; Z20.822 Contact with and (suspected) exposure to COVID-19
CPT/HCPCS: 36415; 71045; 76770; 76857; 80048; 80053; 80069; 80076; 80307; 80320; 80329; 81003; 82550; 82652; 82947; 83735; 83880; 83970; 84443; 84550; 85025; 85610; 85730; 87811; 93005; 96365; 96375; 97161; 99285; J0360; J1644; J1815; J3475; J7030

== ENCOUNTER 2023-01-28 01:00 | Observation (INO) | payer OTHER ==
--- OUTSIDE RECORDS SUMMARY | 2023-01-28 01:10 | XMS REPORT | Continuity of Care Document ---
:1965 Author Organization [facility] t Address [address] [facility] [address] [place] [id number] Care Team Providers Name Role Phone BERNARD GALLARDO Primary Care Physician Unavailable IZAIAH JULIAN Attending Clinician Unavailable ETHAN WEI Attending Clinician Unavailable ETHAN WEI Attending Clinician Unavailable RAZIA CHEN Attending Clinician Unavailable Mario Gil Attending Clinician [place], General Cardiology Attending Clinician Unavailable Lab, Ang - Db Attending Clinician Unavailable MARIO VILLALOBOS Attending Clinician Unavailable RADHA RODRIGUEZ Attending Clinician Unavailable Doctor Unassigned, [place] Attending Clinician Unavailable Lawrence Arredondo MD Attending Clinician BERNARD GALLARDO Attending Clinician Unavailable LAWRENCE ARREDONDO Attending Clinician Unavailable VIDHI DODD Attending Clinician Unavailable GT PURCELL Attending Clinician Unavailable Radha Rodriguez Attending Clinician [facility] Sleep Attending Clinician DINORA HAMM Attending Clinician Unavailable DINORA HAMM Attending Clinician Unavailable Yury Pagan MD Attending Clinician Jasen Burden MD Attending Clinician Bernard Garay Attending Clinician STACEY MULLER Attending Clinician Unavailable Stacey Prater Attending Clinician Vtc-Lab Attending Clinician Unavailable SHAMIR MERIDA Attending Clinician Unavailable Declan PIÑA, Leonardo Attending Clinician Gt Purcell MD Attending Clinician Fer Macedo DO Attending Clinician Rodrigo Denton MD Attending Clinician RODRIGO DENTON Attending Clinician Unavailable RODRIGO DENTON Attending Clinician Unavailable LEONARDO MANRIQUEZ Attending Clinician Unavailable 1, [facility] Sleep Lab Bed Attending Clinician Unavailable Pob, [facility] Main Attending Clinician Unavailable Kellie Ivory RN Attending Clinician Unavailable Only, [facility] Test Attending Clinician Unavailable Facundo Galvez MD Attending Clinician Lab, [facility] Fam Pob I Attending Clinician Unavailable Odalis Sharp MD Attending Clinician ODALIS SHARP Attending Clinician Unavailable Rosaura Quintanilla PA-C Attending Clinician Neurology Attending Clinician Unavailable Trevor Joseph DO Attending Clinician 1, [facility] Attending Clinician Unavailable ABHISHEK QURESHI Attending Clinician Unavailable JAY LANDA Attending Clinician Unavailable Michael Armstrong MD Attending Clinician Melisa Castellon Attending Clinician Abhishek Qureshi MD Attending Clinician Tereso Nguyen MD Attending Clinician Vivienne Pitts MD Attending Clinician SHAHNAZ MEDLEY Attending Clinician Unavailable Shahnaz Guerra Attending Clinician DEDRICK ROQUE Attending Clinician Unavailable Joshua FONSECA, Verena Attending Clinician DINORA HAMM Admitting Clinician Unavailable Abhishek Qureshi MD Admitting Clinician SHAHNAZ MEDLEY Admitting Clinician Unavailable Payers Payer Name Policy Type Policy Number Effective Date Expiration Date Akanksha ESTRADA [id number] 2020 PREFERRED GENERIC 00:00:00 [facility] [id number] 2022 PPO 00:00:00 [place] [id number] 2015 OF [facility] 00:00:00 Problems Condition Condition Condition Status Onset Resolution Last Treating Co mments Source Name Details Category Date Date Treatment Clinician Date Bilateral Bilateral Disease Active Uni vers carotid carotid 4-19 ity of artery artery 00:00: [place] stenosis stenosis 00 [facility] Disease Active Unive rs discharge discharge 4-19 [place] of [place] JONAH (acute JONAH (acute Disease Active U nivers kidney kidney 4-19 ity of injury) injury) 00:00: [place] 00 Medical Branch Tachycardi Tachycardi Disease Active U nivers a a 4-19 ity of 00:00: [place] 00 Medical Branch NIA NIA Disease Active 2021-09 Univers (obstructi (obstructi 2-12 it y of ve sleep ve sleep 00:00: [place] apnea) apnea) 00 Medical Branch Coronary Coronary Disease Active 2021-09 Unive rs artery artery 2-12 ity of disease disease 00:00: [place] involving involving 00 Medi christelle huslia huslia Branch coronary coronary artery of artery of huslia huslia heart heart without without angina angina pectoris pectoris Coronary Coronary Disease Active 2021-09 Unive rs artery artery 2-12 ity of disease disease 00:00: [place] involving involving 00 Medi christelle huslia huslia Branch coronary coronary artery of artery of huslia huslia heart heart without without angina angina pectoris pectoris Chest Chest Disease Active 2021-09 Univers pain, pain, 2-02 ity of unspecifie unspecifie 00:[place] d type d type 00 Medical Branch NSTEMI NSTEMI Disease Active 2021-09 Overview: Univer s (non-ST (non-ST 2-01 Formattin ity o f elevated elevated 00:00: g of this [place] as myocardial myocardial 00 note Me dical infarction infarction might be Branch ) ) different from the original. Added automatic ally from request for surgery [id number] Obesity Obesity Disease Active Univers (BMI (BMI 1-22 ity of 30-39.9) 30-39.9) 00:00: [place] 00 Medical Branch Stroke Stroke Disease Active Univers 1-21 ity of 00:00: [place] Medical [facility] Type 2 Type 2 Disease Active Univers diabetes diabetes 06-19 ity of mellitus mellitus 00:00: [place] without without 00 Medical complicati complicati Br anch on, on, without without long-term long-term current current use of use of insulin insulin Leukocytos Leukocytos Disease Active U nivers is is 9- ity of 00:00: [place] Medical [facility] History of History of Disease Active U nivers CVA CVA 06-17 ity of (cerebrova (cerebrova 00:00: [place] scular scular 00 Medical accident) accident) Bran ch Morbid Morbid Disease Active Univers obesity obesity 06-17 ity of with BMI with BMI 00:00: [place] of of 00 Medical 40.0-44.9, 40.0-44.9, Br anch adult adult Anxiety Anxiety Disease Active Univers 9-22 ity of 00:00: [place] Medical [facility] Essential Essential Disease Active Uni vers hypertensi hypertensi 6-10 it y of on on 00:00: Medical Branch Hyperlipid Hyperlipid Disease Active U nivers emia with emia with 6-10 ity of target low target low 00:00: [place] density density Medical lipoprotei lipoprotei Br anch n (LDL) n (LDL) cholestero cholestero l less l less than 100 than 100 mg/dL mg/dL Allergies, Adverse Reactions, Alerts Allergy Allergy Status Severity Reaction(s) Onset Inactive Treating Comm ents Source Name Type Date Date Clinician NO KNOWN Drug Active Univers ALLERGIE Class ity of S [facility] Social History Social Habit Start Date Stop Date Quantity Comments Source History SDOH University o f Alcohol Frequency [place] M edical Branch History [facility] University o f Alcohol Std [place] Medical Drinks Branch History [facility] University o f Alcohol Binge [place] Medic al Branch Exposure to 2023-01-02 2023-01-12 Not sure University of SARS-CoV-2 00:00:00 15:16:00 [facility] (event) Branch Alcohol intake 2023-01-12 2023-01-12 Current drinker Unive rsity of 00:00:00 00:00:00 of alcohol [facility] (finding) [place] Tobacco use and 2022-06-22 2022-06-22 Smokeless tobacco Un iversity of exposure 00:00:00 00:00:00 non-user [facility] Alcohol Comment 2019-04-23 2019-04-23 rarely Universit y of 00:00:00 00:00:00 [facility] [birth year] At [birth year] Universit y of 00:00:00 00:00:00 [facility] Smoking Status Start Date Stop Date Source Never smoked tobacco [facility] Medications Ordered Filled Start Stop Current Ordering Indication Dosage Frequency Signature Comments Components Source Medication Medication Date Date Medication? Clinician (SIG) Name Name ACCU-CHEK 2023-0 Yes [id number] USE U nivers GUIDE TEST 1-25 DIRECTED. ity of STRIPS 00:00: TAKE [place] strip 00 GLUCOSE Medical 1-2 TIMES Branch DAILY ACCU-CHEK 2023-0 Yes [id number] USE U nivers GUIDE TEST 1-25 DIRECTED. ity of STRIPS 00:00: TAKE [place] strip 00 GLUCOSE Medical 1-2 TIMES Branch DAILY ACCU-CHEK 2023-0 Yes [id number] USE U nivers GUIDE TEST 1-25 DIRECTED. ity of STRIPS 00:00: TAKE [place] strip 00 GLUCOSE Medical 1-2 TIMES Branch DAILY ACCU-CHEK 2023-0 Yes [id number] USE U nivers GUIDE TEST 1-25 DIRECTED. ity of STRIPS 00:00: TAKE [place] strip 00 GLUCOSE Medical 1-2 TIMES Branch DAILY ACCU-CHEK 2023-0 Yes [id number] USE U nivers GUIDE TEST 1-25 DIRECTED. ity of STRIPS 00:00: TAKE [place] strip 00 GLUCOSE Medical 1-2 TIMES Branch DAILY ACCU-CHEK 2023-0 Yes [id number] USE U nivers GUIDE TEST 1-25 DIRECTED. ity of STRIPS 00:00: TAKE [place] strip 00 GLUCOSE Medical 1-2 TIMES Branch DAILY ACCU-CHEK 2023-0 Yes [id number] USE U nivers GUIDE TEST 1-25 DIRECTED. ity of STRIPS 00:00: TAKE [place] strip 00 GLUCOSE Medical 1-2 TIMES Branch DAILY ACCU-CHEK 2023-0 Yes [id number] USE U nivers GUIDE TEST 1-25 DIRECTED. ity of STRIPS 00:00: TAKE [place] strip 00 GLUCOSE Medical 1-2 TIMES Branch DAILY ACCU-CHEK 2023-0 Yes [id number] USE U nivers GUIDE TEST 1-25 DIRECTED. ity of STRIPS 00:00: TAKE [place] strip 00 GLUCOSE Medical 1-2 TIMES Branch DAILY ACCU-CHEK 2023-0 Yes [id number] USE U nivers GUIDE TEST 1-25 DIRECTED. ity of STRIPS 00:00: TAKE [place] strip 00 GLUCOSE Medical 1-2 TIMES Branch DAILY ACCU-CHEK 2023-0 Yes [id number] USE U nivers GUIDE TEST 1-25 DIRECTED. ity of STRIPS 00:00: TAKE [place] strip 00 GLUCOSE Medical 1-2 TIMES Branch DAILY ACCU-CHEK 2023-0 Yes [id number] USE U nivers GUIDE TEST 1-25 DIRECTED. ity of STRIPS 00:00: TAKE [place] strip 00 GLUCOSE Medical 1-2 TIMES Branch DAILY ACCU-CHEK 2023-0 Yes [id number] USE U nivers GUIDE TEST 1-25 DIRECTED. ity of STRIPS 00:00: TAKE [place] strip 00 GLUCOSE Medical 1-2 TIMES Branch DAILY blood sugar 2021-09 Yes [id number] Use as Univers diagnostic 2-09 directed. ity of (ACCU-CHEK 00:00: Take [place] GUIDE TEST 00 glucose Medica l STRIPS) 1-2 times Branch strip daily glimepiride 2021-09 Yes [id number] 1mg Take 1 Univers 1 mg tablet 2-09 tablet by ity of 00:00: mouth [place] 00 daily with Medical breakfast. Branch blood sugar 2021-09 Yes [id number] Use as Univers diagnostic 2-09 directed. ity of (ACCU-CHEK 00:00: Take [place] GUIDE TEST 00 glucose Medica l STRIPS) 1-2 times Branch strip daily glimepiride 2021-09 Yes [id number] 1mg Take 1 Univers 1 mg tablet 2-09 tablet by ity of 00:00: mouth [place] 00 daily with Medical breakfast. Branch blood sugar 2021-09 Yes [id number] Use as Univers diagnostic 2-09 directed. ity of (ACCU-CHEK 00:00: Take [place] GUIDE TEST 00 glucose Medica l STRIPS) 1-2 times Branch strip daily glimepiride 2021-09 Yes [id number] 1mg Take 1 Univers 1 mg tablet 2-09 tablet by ity of 00:00: mouth [place] 00 daily with Medical breakfast. Branch blood sugar 2021-09 Yes [id number] Use as Univers diagnostic 2-09 directed. ity of (ACCU-CHEK 00:00: Take [place] GUIDE TEST 00 glucose Medica l STRIPS) 1-2 times Branch strip daily glimepiride 2021-09 Yes [id number] 1mg Take 1 Univers 1 mg tablet 2-09 tablet by ity of 00:00: mouth [place] 00 daily with Medical breakfast. Branch blood sugar 2021-09 Yes [id number] Use as Univers diagnostic 2-09 directed. ity of (ACCU-CHEK 00:00: Take [place] GUIDE TEST 00 glucose Medica l STRIPS) 1-2 times Branch strip daily glimepiride 2021-09 Yes [id number] 1mg Take 1 Univers 1 mg tablet 2-09 tablet by ity of 00:00: mouth [place] 00 daily with Medical breakfast. Branch blood sugar 2021-09 Yes [id number] Use as Univers diagnostic 2-09 directed. ity of (ACCU-CHEK 00:00: Take [place] GUIDE TEST 00 glucose Medica l STRIPS) 1-2 times Branch strip daily glimepiride 2021-09 Yes [id number] 1mg Take 1 Univers 1 mg tablet 2-09 tablet by ity of 00:00: mouth [place] 00 daily with Medical breakfast. Branch blood sugar 2021-09 Yes [id number] Use as Univers diagnostic 2-09 directed. ity of (ACCU-CHEK 00:00: Take [place] GUIDE TEST 00 glucose Medica l STRIPS) 1-2 times Branch strip daily glimepiride 2021-09 Yes [id number] 1mg Take 1 Univers 1 mg tablet 2-09 tablet by ity of 00:00: mouth [place] 00 daily with Medical breakfast. Branch blood sugar 2021-09 Yes [id number] Use as Univers diagnostic 2-09 directed. ity of (ACCU-CHEK 00:00: Take [place] GUIDE TEST 00 glucose Medica l STRIPS) 1-2 times Branch strip daily glimepiride 2021-09 Yes [id number] 1mg Take 1 Univers 1 mg tablet 2-09 tablet by ity of 00:00: mouth [place] 00 daily with Medical breakfast. [place] glimepiride 2021-09 Yes [id number] 1mg Take 1 Univers 1 mg tablet 2-09 tablet by ity of 00:00: mouth [place] 00 daily with Medical breakfast. Branch glimepiride 2021-09 Yes [id number] 1mg Take 1 Univers 1 mg tablet 2-09 tablet by ity of 00:00: mouth [place] 00 daily with Medical breakfast. Branch glimepiride 2021-09 Yes [id number] 1mg Take 1 Univers 1 mg tablet 2-09 tablet by ity of 00:00: mouth [place] 00 daily with Medical breakfast. Branch glimepiride 2021-09 Yes [id number] 1mg Take 1 Univers 1 mg tablet 2-09 tablet by ity of 00:00: mouth [place] 00 daily with Medical breakfast. [place] glimepiride 2021-09 Yes [id number] 1mg Take 1 Univers 1 mg tablet 2-09 tablet by ity of 00:00: mouth [place] 00 daily with Medical breakfast. [place] glimepiride 2021-09 Yes [id number] 1mg Take 1 Univers 1 mg tablet 2-09 tablet by ity of 00:00: mouth [place] 00 daily with Medical breakfast. [place] glimepiride 2021-09 Yes [id number] 1mg Take 1 Univers 1 mg tablet 2-09 tablet by ity of 00:00: mouth [place] 00 daily with Medical breakfast. [place] glimepiride 2021-09 Yes [id number] 1mg Take 1 Univers 1 mg tablet 2-09 tablet by ity of 00:00: mouth [place] 00 daily with Medical breakfast. [place] glimepiride 2021-09 Yes [id number] 1mg Take 1 Univers 1 mg tablet 2-09 tablet by ity of 00:00: mouth [place] 00 daily with Medical breakfast. Branch glimepiride 2021-09 Yes [id number] 1mg Take 1 Univers 1 mg tablet 2-09 tablet by ity of 00:00: mouth [place] 00 daily with Medical breakfast. Branch glimepiride 2021-09 Yes [id number] 1mg Take 1 Univers 1 mg tablet 2-09 tablet by ity of 00:00: mouth [place] 00 daily with Medical breakfast. [place] glimepiride 2021-09 Yes [id number] 1mg Take 1 Univers 1 mg tablet 2-09 tablet by ity of 00:00: mouth [place] 00 daily with Medical breakfast. [place] glimepiride 2021-09 Yes [id number] 1mg Take 1 Univers 1 mg tablet 2-09 tablet by ity of 00:00: mouth [place] 00 daily with Medical breakfast. [place] blood sugar 2021-09- No [id number] Use as Univers diagnostic 11-04 directed. ity of (ACCU-CHEK 00:00: 00:00 Take [place] GUIDE TEST 00 :00 glucose Medica l STRIPS) 1-2 times Branch strip daily aspirin 81 2021-09- No [id number] 81mg Take 1 Univers mg chewable 2-04 12-05 tablet by it y of tablet 00:00: 05:59 mouth in [place] 00 :00 the Medical morning. [place] aspirin 81 2021-09- No [id number] 81mg Take 1 Univers mg chewable 2-04 12-05 tablet by it y of tablet 00:00: 05:59 mouth in [place] 00 :00 the Medical morning. [place] aspirin 81 2021-09- No [id number] 81mg Take 1 Univers mg chewable 2-04 12-05 tablet by it y of tablet 00:00: 05:59 mouth in [place] 00 :00 the Medical morning. [place] aspirin 81 2021-09- No [id number] 81mg Take 1 Univers mg chewable 2-04 12-05 tablet by it y of tablet 00:00: 05:59 mouth in [place] 00 :00 the Medical morning. [place] aspirin 81 2021-09- No [id number] 81mg Take 1 Univers mg chewable 2-04 12-05 tablet by it y of tablet 00:00: 05:59 mouth in [place] 00 :00 the Medical morning. [place] aspirin 81 2021-09- No [id number] 81mg Take 1 Univers mg chewable 2-04 12-05 tablet by it y of tablet 00:00: 05:59 mouth in [place] 00 :00 the Medical morning. [place] aspirin 81 2021-09- No [id number] 81mg Take 1 Univers mg chewable 2-04 12-05 tablet by it y of tablet 00:00: 05:59 mouth in [place] 00 :00 the Medical morning. [place] aspirin 81 2021-09- No [id number] 81mg Take 1 Univers mg chewable 2-04 12-05 tablet by it y of tablet 00:00: 05:59 mouth in [place] 00 :00 the Medical morning. Branch aspirin 81 2021-09- No [id number] 81mg Take 1 Univers mg chewable 2-04 12-05 tablet by it y of tablet 00:00: 05:59 mouth in [place] 00 :00 the Medical morning. Branch aspirin 81 2021-09- No [id number] 81mg Take 1 Univers mg chewable 2-04 12-05 tablet by it y of tablet 00:00: 05:59 mouth in [place] 00 :00 the Medical morning. Branch aspirin 81 2021-09- No [id number] 81mg Take 1 Univers mg chewable 2-04 12-05 tablet by it y of tablet 00:00: 05:59 mouth in [place] 00 :00 the Medical morning. Branch aspirin 81 2021-09- No [id number] 81mg Take 1 Univers mg chewable 2-04 12-05 tablet by it y of tablet 00:00: 05:59 mouth in [place] 00 :00 the Medical morning. Branch aspirin 81 2021-09- No [id number] 81mg Take 1 Univers mg chewable 2-04 12-05 tablet by it y of tablet 00:00: 05:59 mouth in [place] 00 :00 the Medical morning. Branch aspirin 81 2021-09- No [id number] 81mg Take 1 Univers mg chewable 2-04 12-05 tablet by it y of tablet 00:00: 05:59 mouth in [place] 00 :00 the Medical morning. Branch aspirin 81 2021-09- No [id number] 81mg Take 1 Univers mg chewable 2-04 12-05 tablet by it y of tablet 00:00: 05:59 mouth in [place] 00 :00 the Medical morning. Branch aspirin 81 2021-09- No [id number] 81mg Take 1 Univers mg chewable 2-04 12-05 tablet by it y of tablet 00:00: 05:59 mouth in [place] 00 :00 the Medical morning. Branch aspirin 81 2021-09- No [id number] 81mg Take 1 Univers mg chewable 2-04 12-05 tablet by it y of tablet 00:00: 05:59 mouth in [place] 00 :00 the Medical morning. Branch aspirin 81 2021-09- No [id number] 81mg Take 1 Univers mg chewable 2-08-30 tablet by it y of tablet 00:00: 05:59 mouth in [place] 00 :00 the Medical morning. [place] aspirin 81 2021-09- No [id number] 81mg Take 1 Univers mg chewable 2-08-30 tablet by it y of tablet 00:00: 05:59 mouth in [place] 00 :00 the Medical morning. [place] aspirin 81 2021-09- No [id number] 81mg Take 1 Univers mg chewable 2-08-30 tablet by it y of tablet 00:00: 05:59 mouth in [place] 00 :00 the Medical morning. [place] aspirin 81 2021-09- No [id number] 81mg Take 1 Univers mg chewable 2-08-30 tablet by it y of tablet 00:00: 05:59 mouth in [place] 00 :00 the Medical morning. [place] aspirin 81 2021-09- No [id number] 81mg Take 1 Univers mg chewable 2-08-30 tablet by it y of tablet 00:00: 05:59 mouth in [place] 00 :00 the Medical morning. [place] aspirin 81 2021-09- No [id number] 81mg Take 1 Univers mg chewable 2-08-30 tablet by it y of tablet 00:00: 05:59 mouth in [place] 00 :00 the Medical morning. [place] carvediloL 2021-09 Yes 12.5mg 12.5 mg, U nivers (COREG) 10-29 Oral, BID ity of tablet 12.5 23:00: [place]ALS, [place] mg 00 First dose Medical (after Branch last modificati on) on 08/28/22 at 1700, Until Discontinu ed, Routine carvediloL 2021-09 No 12.5mg 12.5 mg, Univers (COREG) 10-29 Oral, BID ity of tablet 12.5 23:00: 22:49 MEALS, [place] as mg 00 :38 First dose Medical (after Branch last modificati on) on 08/28/22 at 1700, Until Discontinu ed, Routine magnesium 2021-09- No 4g 4 g, IV Univ ers sulfate in 10-29 Piggyback, it y of water 4 12:30: 16:53 at 25 [place] gram/50 mL 00 :00 mL/hr Medical (8 %) IV Administer Branc h Piggyback 4 over 120 g Minutes, ONCE, 1 dose, On 08/28/22 at 0630, Routine magnesium 2021-09- No 4g 4 g, IV Univ ers sulfate in 10-29 Piggyback, it y of water 4 12:30: 16:53 at 25 [place] gram/50 mL 00 :00 mL/hr Medical (8 %) IV Administer Branc h Piggyback 4 over 120 g Minutes, ONCE, 1 dose, On 08/28/22 at 0630, Routine amLODIPine 2021-09 Yes 10mg 10 mg, Unive rs (NORVASC) 10-29 Oral, ity of tablet 10 11:15: Q24H, [place] mg 00 First dose Medical (after Branch last modificati on) on 08/28/22 at 0515, Until Discontinu ed, Routine amLODIPine 2021-09- No 10mg 10 mg, Univ ers (NORVASC) 10-29 Oral, ity of tablet 10 11:15: 22:49 Q24H, [place] mg 00 :38 First dose Medical (after Branch last modificati on) on 08/28/22 at 0515, Until Discontinu ed, Routine atorvastati 2021-09 Yes 80mg 80 mg, Univ ers n (LIPITOR) 10-29 Oral, QHS, it y of tablet 80 03:00: First dose [place] mg 00 on Fri Medical 08/27/22 at Branch 2100, Until Discontinu ed, Routine atorvastati 2021-09- No 80mg 80 mg, Uni vers n (LIPITOR) 10-29 Oral, QHS, i ty of tablet 80 03:00: 22:49 First dose [place] mg 00 :38 on Fri Medical 08/27/22 at Branch 2100, Until Discontinu ed, Routine nitroglycer 2021-[id number] 1 Univers in 0.4 mg 10-29 tablet ity of sublingual 00:00: under the [place] tablet 00 tongue Medical every 5 Branch (five) minutes as needed for Chest pain. Blood-Gluco 2021-09 Yes [id number] Use as Univers se Meter 2-03 directed ity of (ACCU-CHEK 00:00: [place] GUIDE 00 Medical GLUCOSE Branch METER) [facility] blood sugar 2021-09 Yes [id number] Use as Univers diagnostic 2-03 directed ity o f (ACCU-CHEK 00:00: [place] GUIDE TEST 00 Medical STRIPS) Branch strip lancets 2021-09 Yes [id number] Use as U nivers gauge Misc 2-03 directed ity o f 00:00: [place] 00 Medical Branch nitroglycer 2021-[id number] 1 Univers in 0.4 mg 2-03 tablet ity of sublingual 00:00: under the [place] tablet 00 tongue Medical every 5 Branch (five) minutes as needed for Chest pain. Blood-Gluco 2021-09 Yes [id number] Use as Univers se Meter 2-03 directed ity of (ACCU-CHEK 00:00: [place] GUIDE 00 Medical GLUCOSE Branch METER) [facility] blood sugar 2021-09 Yes [id number] Use as Univers diagnostic 2-03 directed ity o f (ACCU-CHEK 00:00: [place] GUIDE TEST 00 Medical STRIPS) Branch strip lancets 2021-09 Yes [id number] Use as U nivers gauge Misc 2-03 directed ity o f 00:00: [place] 00 Medical Branch nitroglycer 2021-[id number] 1 Univers in 0.4 mg 2-03 tablet ity of sublingual 00:00: under the [place] tablet 00 tongue Medical every 5 Branch (five) minutes as needed for Chest pain. Blood-Gluco 2021-09 Yes [id number] Use as Univers se Meter 2-03 directed ity of (ACCU-CHEK 00:00: [place] GUIDE 00 Medical GLUCOSE Branch METER) [facility] lancets 2021-09 Yes [id number] Use as U nivers gauge Misc 2-03 directed ity o f 00:00: [place] 00 Medical Branch nitroglycer 2021-[id number] 1 Univers in 0.4 mg 2-03 tablet ity of sublingual 00:00: under the [place] tablet 00 tongue Medical every 5 Branch (five) minutes as needed for Chest pain. Blood-Gluco 2021-09 Yes [id number] Use as Univers se Meter 2-03 directed ity of (ACCU-CHEK 00:00: [place] GUIDE 00 Medical GLUCOSE Branch METER) Misc lancets 2021-09 Yes [id number] Use as U nivers gauge Misc 2-03 directed ity o f 00:00: [place] Medical Branch nitroglycer 2021-[id number] 1 Univers in 0.4 mg 2-03 tablet ity of sublingual 00:00: under the [place] tablet 00 tongue Medical every 5 Branch (five) minutes as needed for Chest pain. Blood-Gluco 2021-09 Yes [id number] Use as Univers se Meter 2-03 directed ity of (ACCU-CHEK 00:00: [place] GUIDE 00 Medical GLUCOSE Branch METER) Misc lancets 2021-09 Yes [id number] Use as U nivers gauge Misc 2-03 directed ity o f 00:00: [place] Medical Branch nitroglycer 2021-[id number] 1 Univers in 0.4 mg 2-03 tablet ity of sublingual 00:00: under the [place] tablet 00 tongue Medical every 5 Branch (five) minutes as needed for Chest pain. Blood-Gluco 2021-09 Yes [id number] Use as Univers se Meter 2-03 directed ity of (ACCU-CHEK 00:00: [place] GUIDE 00 Medical GLUCOSE Branch METER) Misc lancets 2021-09 Yes [id number] Use as U nivers gauge Misc 2-03 directed ity o f 00:00: [place] 00 Medical Branch nitroglycer 2021-[id number] 1 Univers in 0.4 mg 2-03 tablet ity of sublingual 00:00: under the [place] tablet 00 tongue Medical every 5 Branch (five) minutes as needed for Chest pain. Blood-Gluco 2021-09 Yes [id number] Use as Univers se Meter 2-03 directed ity of (ACCU-CHEK 00:00: [place] GUIDE 00 Medical GLUCOSE Branch METER) Misc lancets 2021-09 Yes [id number] Use as U nivers gauge Misc 2-03 directed ity o f 00:00: [place] 00 Medical Branch nitroglycer 2021-[id number] 1 Univers in 0.4 mg 2-03 tablet ity of sublingual 00:00: under the [place] tablet 00 tongue Medical every 5 Branch (five) minutes as needed for Chest pain. Blood-Gluco 2021-09 Yes [id number] Use as Univers se Meter 2-03 directed ity of (ACCU-CHEK 00:00: [place] GUIDE 00 Medical GLUCOSE Branch METER) Misc lancets 2021-09 Yes [id number] Use as U nivers gauge Misc 2-03 directed ity o f 00:00: [place] 00 Medical Branch nitroglycer 2021-[id number] 1 [facility] in 0.4 mg 2-03 tablet ity of sublingual 00:00: under the [place] tablet 00 tongue Medical every 5 Branch (five) minutes as needed for Chest pain. Blood-Gluco 2021-09 Yes [id number] Use as Univers se Meter 2-03 directed ity of (ACCU-CHEK 00:00: [place] GUIDE 00 Medical GLUCOSE Branch METER) Misc lancets 2021-09 Yes [id number] Use as U nivers gauge Misc 2-03 directed ity o f 00:00: [place] 00 [facility] Branch nitroglycer 2021-[id number] 1 [facility] in 0.4 mg 2-03 tablet ity of sublingual 00:00: under the [place] tablet 00 tongue Medical every 5 Branch (five) minutes as needed for Chest pain. Blood-Gluco 2021-09 Yes [id number] Use as Univers se Meter 2-03 directed ity of (ACCU-CHEK 00:00: [place] GUIDE 00 Medical GLUCOSE Branch METER) Misc lancets 2021-09 Yes [id number] Use as U nivers gauge Misc 2-03 directed ity o f 00:00: [place] 00 [facility] Branch nitroglycer 2021-[id number] 1 [facility] in 0.4 mg 2-03 tablet ity of sublingual 00:00: under the [place] tablet 00 tongue Medical every 5 Branch (five) minutes as needed for Chest pain. Blood-Gluco 2021-09 Yes [id number] Use as Univers se Meter 2-03 directed ity of (ACCU-CHEK 00:00: [place] GUIDE 00 Medical GLUCOSE Branch METER) Misc lancets 2021-09 Yes [id number] Use as U nivers gauge Misc 2-03 directed ity o f 00:00: [place] 00 [facility] Branch nitroglycer 2021-[id number] 1 [facility] in 0.4 mg 2-03 tablet ity of sublingual 00:00: under the [place] tablet 00 tongue Medical every 5 Branch (five) minutes as needed for Chest pain. Blood-Gluco 2021-09 Yes [id number] Use as Univers se Meter 2-03 directed ity of (ACCU-CHEK 00:00: [place] GUIDE 00 Medical GLUCOSE Branch METER) Misc lancets 2021-09 Yes [id number] Use as U nivers gauge Misc 2-03 directed ity o f 00:00: [place] 00 [facility] Branch nitroglycer 2021-[id number] 1 [facility] in 0.4 mg 2-03 tablet ity of sublingual 00:00: under the [place] tablet 00 tongue Medical every 5 Branch (five) minutes as needed for Chest pain. Blood-Gluco 2021-09 Yes [id number] Use as Univers se Meter 2-03 directed ity of (ACCU-CHEK 00:00: [place] GUIDE 00 Medical GLUCOSE Branch METER) Misc lancets 2021-09 Yes [id number] Use as U nivers gauge Misc 2-03 directed ity o f 00:00: [place] 00 [facility] Branch nitroglycer 2021-[id number] 1 [facility] in 0.4 mg 2-03 tablet ity of sublingual 00:00: under the [place] tablet 00 tongue Medical every 5 Branch (five) minutes as needed for Chest pain. Blood-Gluco 2021-09 Yes [id number] Use as Univers se Meter 2-03 directed ity of (ACCU-CHEK 00:00: [place] GUIDE 00 Medical GLUCOSE Branch METER) Misc lancets 2021-09 Yes [id number] Use as U nivers gauge Misc 2-03 directed ity o f 00:00: [place] 00 [facility] Branch nitroglycer 2021-[id number] 1 [facility] in 0.4 mg 2-03 tablet ity of sublingual 00:00: under the [place] tablet 00 tongue Medical every 5 Branch (five) minutes as needed for Chest pain. Blood-Gluco 2021-09 Yes [id number] Use as Univers se Meter 2-03 directed ity of (ACCU-CHEK 00:00: [place] GUIDE 00 Medical GLUCOSE Branch METER) Misc lancets 2021-09 Yes [id number] Use as U nivers gauge Misc 2-03 directed ity o f 00:00: [place] 00 [facility] Branch nitroglycer 2021-[id number] 1 [facility] in 0.4 mg 2-03 tablet ity of sublingual 00:00: under the [place] tablet 00 tongue Medical every 5 Branch (five) minutes as needed for Chest pain. Blood-Gluco 2021-09 Yes [id number] Use as Univers se Meter 2-03 directed ity of (ACCU-CHEK 00:00: [place] GUIDE 00 Medical GLUCOSE Branch METER) Misc lancets 2021-09 Yes [id number] Use as U nivers gauge Misc 2-03 directed ity o f 00:00: [place] 00 [facility] Branch nitroglycer 2021-[id number] 1 [facility] in 0.4 mg 2-03 tablet ity of sublingual 00:00: under the [place] tablet 00 tongue Medical every 5 Branch (five) minutes as needed for Chest pain. Blood-Gluco 2021-09 Yes [id number] Use as [facility] se Meter 2-03 directed ity of (ACCU-CHEK 00:00: [place] GUIDE 00 Medical GLUCOSE Branch METER) Misc lancets 2021-09 Yes [id number] Use as U nivers gauge Misc 2-03 directed ity o f 00:00: [place] 00 [facility] Branch nitroglycer 2021-[id number] 1 [facility] in 0.4 mg 2-03 tablet ity of sublingual 00:00: under the [place] tablet 00 tongue Medical every 5 Branch (five) minutes as needed for Chest pain. Blood-Gluco 2021-09 Yes [id number] Use as Univers se Meter 2-03 directed ity of (ACCU-CHEK 00:00: [place] GUIDE 00 Medical GLUCOSE Branch METER) Misc lancets 2021-09 Yes [id number] Use as U nivers gauge Misc 2-03 directed ity o f 00:00: [place] 00 [facility] Branch nitroglycer 2021-[id number] 1 [facility] in 0.4 mg 2-03 tablet ity of sublingual 00:00: under the [place] tablet 00 tongue Medical every 5 Branch (five) minutes as needed for Chest pain. Blood-Gluco 2021-09 Yes [id number] Use as Univers se Meter 2-03 directed ity of (ACCU-CHEK 00:00: [place] GUIDE 00 Medical GLUCOSE Branch METER) Misc lancets 2021-09 Yes [id number] Use as U nivers gauge Misc 2-03 directed ity o f 00:00: [place] 00 [facility] Branch nitroglycer 2021-[id number] 1 [facility] in 0.4 mg 2-03 tablet ity of sublingual 00:00: under the [place] tablet 00 tongue Medical every 5 Branch (five) minutes as needed for Chest pain. Blood-Gluco 2021-09 Yes [id number] Use as Univers se Meter 2-03 directed ity of (ACCU-CHEK 00:00: [place] GUIDE 00 Medical GLUCOSE Branch METER) Misc lancets 2021-09 Yes [id number] Use as U nivers gauge Misc 2-03 directed ity o f 00:00: [place] [facility] nitroglycer 2021-[id number] 1 [facility] in 0.4 mg 2-03 tablet ity of sublingual 00:00: under the [place] tablet 00 tongue Medical every 5 Branch (five) minutes as needed for Chest pain. Blood-Gluco 2021-09 Yes [id number] Use as Univers se Meter 2-03 directed ity of (ACCU-CHEK 00:00: [place] GUIDE 00 Medical GLUCOSE Branch METER) Misc lancets 2021-09 Yes [id number] Use as U nivers gauge Misc 2-03 directed ity o f 00:00: [place] [facility] nitroglycer 2021-[id number] 1 [facility] in 0.4 mg 2-03 tablet ity of sublingual 00:00: under the [place] tablet 00 tongue Medical every 5 Branch (five) minutes as needed for Chest pain. Blood-Gluco 2021-09 Yes [id number] Use as Univers se Meter 2-03 directed ity of (ACCU-CHEK 00:00: [place] GUIDE 00 Medical GLUCOSE Branch METER) Misc lancets 2021-09 Yes [id number] Use as U nivers gauge Misc 2-03 directed ity o f 00:00: [place] 00 [facility] Branch nitroglycer 2021-[id number] 1 [facility] in 0.4 mg 2-03 tablet ity of sublingual 00:00: under the [place] tablet 00 tongue Medical every 5 Branch (five) minutes as needed for Chest pain. Blood-Gluco 2021-09 Yes [id number] Use as Univers se Meter 10-29 directed ity of (ACCU-CHEK 00:00: [place] GUIDE 00 Medical GLUCOSE Branch METER) Misc lancets 33 2021-09 Yes [id number] Use as U nivers gauge Misc 10-29 directed ity o f 00:00: [place] 00 [facility] Branch amLODIPine 2021-09- No [id number] 10mg Take 1 Univers 10 mg 2-11 26- tablet by ity of tablet 00:00: 05:59 mouth in [place] 00 :00 the Medical morning Branch for 90 days. atorvastati 2021-09- No [id number] 80mg Take 1 Univers n 80 mg -11 26- tablet by ity of tablet 00:00: 05:59 mouth at [place] 00 :00 bedtime Medical for 90 Branch days. carvediloL 2021-09- No [id number] 12.5mg Take 1 Univers 12.5 mg -11 26- tablet by ity of tablet 00:00: 05:59 mouth in [place] 00 :00 the Medical morning Branch and 1 tablet in the evening. Take with meals. Do all this for 90 days. lisinopriL 2021-09- No [id number] 10mg Take 1 Univers 10 mg 2-11 26-04 tablet by ity of tablet 00:00: 05:59 mouth in [place] 00 :00 the Medical morning Branch for 90 days. amLODIPine 2021-09- No [id number] 10mg Take 1 [facility] 10 mg 2-11 26-04 tablet by ity of tablet 00:00: 05:59 mouth in [place] 00 :00 the Medical morning Branch for 90 days. atorvastati 2021-09- No [id number] 80mg Take 1 Univers n 80 mg 2-11 26-04 tablet by ity of tablet 00:00: 05:59 mouth at [place] 00 :00 bedtime Medical for 90 Branch days. carvediloL 2021-09- No [id number] 12.5mg Take 1 Univers 12.5 mg 2-11 26-04 tablet by ity of tablet 00:00: 05:59 mouth in [place] 00 :00 the [facility] morning [place] and 1 tablet in the evening. Take with meals. Do all this for 90 days. lisinopriL 2021-09- No [id number] 10mg Take 1 Univers 10 mg 2-11 26-04 tablet by ity of tablet 00:00: 05:59 mouth in [place] 00 :[address] [facility] for 90 days. amLODIPine 2021-09- No [id number] 10mg Take 1 Univers 10 mg 2-11 26-04 tablet by ity of tablet 00:00: 05:59 mouth in [place] 00 :[address] [facility] for 90 days. atorvastati 2021-09- No [id number] 80mg Take 1 Univers n 80 mg 2-11 26-04 tablet by ity of tablet 00:00: 05:59 mouth at [place] 00 :00 bedtime [facility] for 90 Branch days. carvediloL 2021-09- No [id number] 12.5mg Take 1 Univers 12.5 mg 2-11 26-04 tablet by ity of tablet 00:00: 05:59 mouth in [place] 00 :[address] [facility] and 1 tablet in the evening. Take with meals. Do all this for 90 days. lisinopriL 2021-09- No [id number] 10mg Take 1 Univers 10 mg 2-11 26-04 tablet by ity of tablet 00:00: 05:59 mouth in [place] 00 :[address] [facility] for 90 days. amLODIPine 2021-09- No [id number] 10mg Take 1 Univers 10 mg 2-11 26-04 tablet by ity of tablet 00:00: 05:59 mouth in [place] 00 :[address] [facility] for 90 days. atorvastati 2021-093- No [id number] 80mg Take 1 Univers n 80 mg 2- 03-04 tablet by ity of tablet 00:00: 05:59 mouth at [place] 00 :00 bedtime [facility] for 90 Branch days. carvediloL 2021-09- No [id number] 12.5mg Take 1 Univers 12.5 mg 2- 03-04 tablet by ity of tablet 00:00: 05:59 mouth in [place] 00 :[address] [facility] and 1 tablet in the evening. Take with meals. Do all this for 90 days. lisinopriL 2021-09- No [id number] 10mg Take 1 Univers 10 mg 2-11 26-04 tablet by ity of tablet 00:00: 05:59 mouth in [place] 00 :[address] [facility] for 90 days. amLODIPine 2021-09- No [id number] 10mg Take 1 Univers 10 mg 2-11 26-04 tablet by ity of tablet 00:00: 05:59 mouth in [place] 00 :[address] [facility] for 90 days. atorvastati 2021-09- No [id number] 80mg Take 1 Univers n 80 mg 2-11 26-04 tablet by ity of tablet 00:00: 05:59 mouth at [place] 00 :00 bedtime [facility] for 90 Branch days. carvediloL 2021-09- No [id number] 12.5mg Take 1 Univers 12.5 mg 2-11 26-04 tablet by ity of tablet 00:00: 05:59 mouth in [place] 00 :[address] [facility] and 1 tablet in the evening. Take with meals. Do all this for 90 days. lisinopriL 2021-09- No [id number] 10mg Take 1 Univers 10 mg 2-11 26-04 tablet by ity of tablet 00:00: 05:59 mouth in [place] 00 :[address] [facility] for 90 days. amLODIPine 2021-09- No [id number] 10mg Take 1 Univers 10 mg 2-11 26-04 tablet by ity of tablet 00:00: 05:59 mouth in [place] 00 :[address] [facility] for 90 days. atorvastati 2021-09- No [id number] 80mg Take 1 Univers n 80 mg 2-03 -04 tablet by ity of tablet 00:00: 05:59 mouth at [place] 00 :00 bedtime [facility] for 90 Branch days. carvediloL 2021-09- No [id number] 12.5mg Take 1 Univers 12.5 mg 2-11 26-04 tablet by ity of tablet 00:00: 05:59 mouth in [place] 00 :[address] [facility] and 1 tablet in the evening. Take with meals. Do all this for 90 days. lisinopriL 2021-09- No [id number] 10mg Take 1 Univers 10 mg 2-03 03-04 tablet by ity of tablet 00:00: 05:59 mouth in [place] 00 :00 the Medical morning [place] for 90 days. amLODIPine 2021-09- No [id number] 10mg Take 1 Univers 10 mg 2- 03-04 tablet by ity of tablet 00:00: 05:59 mouth in [place] 00 :00 the [facility] morning [place] for 90 days. atorvastati 2021-09- No [id number] 80mg Take 1 Univers n 80 mg 2-11 26-04 tablet by ity of tablet 00:00: 05:59 mouth at [place] 00 :00 bedtime [facility] for 90 Branch days. carvediloL 2021-09- No [id number] 12.5mg Take 1 Univers 12.5 mg 2-11 26-04 tablet by ity of tablet 00:00: 05:59 mouth in [place] 00 :00 the [facility] morning [place] and 1 tablet in the evening. Take with meals. Do all this for 90 days. lisinopriL 2021-09- No [id number] 10mg Take 1 Univers 10 mg 2-11 26-04 tablet by ity of tablet 00:00: 05:59 mouth in [place] 00 :00 the [facility] morning [place] for 90 days. amLODIPine 2021-09- No [id number] 10mg Take 1 Univers 10 mg 2-11 26-04 tablet by ity of tablet 00:00: 05:59 mouth in [place] 00 :[address] [facility] for 90 days. atorvastati 2021-09- No [id number] 80mg Take 1 Univers n 80 mg 2-11 26-04 tablet by ity of tablet 00:00: 05:59 [facility] [place] [facility]L 2021-09- No [id number] 12.5mg Take 1 Univers 12.5 mg 2- 03-04 tablet by ity of tablet 00:00: 05:59 mouth in [place] 00 :00 the [facility] morning [place] and 1 tablet in the evening. Take with meals. Do all this for 90 days. lisinopriL 2021-09- No [id number] 10mg Take 1 Univers 10 mg 2-03 03-04 tablet by ity of tablet 00:00: 05:59 mouth in [place] 00 :[address] [facility] for 90 days. amLODIPine 2021-09- No [id number] 10mg Take 1 Univers 10 mg 2-11 26-04 tablet by ity of tablet 00:00: 05:59 mouth in [place] 00 :[address] [facility] for 90 days. atorvastati 2021-09- No [id number] 80mg Take 1 Univers n 80 mg 2- 03-04 tablet by ity of tablet 00:00: 05:59 mouth at [place] 00 :00 bedtime Medical for 90 Branch days. carvediloL 2021-09- No [id number] 12.5mg Take 1 Univers 12.5 mg 2-11 26-04 tablet by ity of tablet 00:00: 05:59 mouth in [place] 00 :[address] [facility] and 1 tablet in the evening. Take with meals. Do all this for 90 days. lisinopriL 2021-09- No [id number] 10mg Take 1 Univers 10 mg 2-11 26-04 tablet by ity of tablet 00:00: 05:59 mouth in [place] 00 :[address] [facility] for 90 days. amLODIPine 2021-09- No [id number] 10mg Take 1 Univers 10 mg 2-11 26-04 tablet by ity of tablet 00:00: 05:59 mouth in [place] 00 :[address] [facility] for 90 days. atorvastati 2021-09- No [id number] 80mg Take 1 Univers n 80 mg 2-11 26-04 tablet by ity of tablet 00:00: 05:59 [facility] [place] [facility] carvediloL 2021-09- No [id number] 12.5mg Take 1 Univers 12.5 mg 2- 03-04 tablet by ity of tablet 00:00: 05:59 mouth in [place] 00 :[address] [facility] and 1 tablet in the evening. Take with meals. Do all this for 90 days. lisinopriL 2021-09- No [id number] 10mg Take 1 Univers 10 mg 2-03 03-04 tablet by ity of tablet 00:00: 05:59 mouth in [place] 00 :[address] [facility] for 90 days. amLODIPine 2021-09- No [id number] 10mg Take 1 Univers 10 mg 2-03 03-04 tablet by ity of tablet 00:00: 05:59 mouth in [place] 00 :[address] [facility] for 90 days. atorvastati 2021-09- No [id number] 80mg Take 1 Univers n 80 mg 2-11 26-04 tablet by ity of tablet 00:00: 05:59 mouth at [place] 00 :00 bedtime [facility] for 90 Branch days. carvediloL 2021-09- No [id number] 12.5mg Take 1 Univers 12.5 mg 10-29-04 tablet by ity of tablet 00:00: 05:59 mouth in [place] 00 :[address] [facility] and 1 tablet in the evening. Take with meals. Do all this for 90 days. lisinopriL 2021-09- No [id number] 10mg Take 1 Univers 10 mg 10-29-04 tablet by ity of tablet 00:00: 05:59 mouth in [place] 00 :[address] [facility] for 90 days. amLODIPine 2021-09- No [id number] 10mg Take 1 Univers 10 mg 10-29-04 tablet by ity of tablet 00:00: 05:59 mouth in [place] 00 :00 [facility] for 90 days. atorvastati 2021-09- No [id number] 80mg Take 1 Univers n 80 mg 10-2904 tablet by ity of tablet 00:00: 05:59 [facility] [place] [facility] carvediloL 2021-09- No [id number] 12.5mg Take 1 Univers 12.5 mg 10-2904 tablet by ity of tablet 00:00: 05:59 mouth in [place] 00 :00 [facility] and 1 tablet in the evening. Take with meals. Do all this for 90 days. lisinopriL 2021-09- No [id number] 10mg Take 1 Univers 10 mg 2-11 26-04 tablet by ity of tablet 00:00: 05:59 mouth in [place] 00 :00 [facility] for 90 days. blood sugar 2021-09- No [id number] Use as Univers diagnostic 10-29 directed ity of (ACCU-CHEK 00:00: 00:00 [place] GUIDE TEST 00 :00 Medical STRIPS) [place] strip blood sugar 2021-09- No [id number] Use as Univers diagnostic 10-29 directed ity of (ACCU-CHEK 00:00: 00:00 [place] GUIDE TEST 00 :00 Medical STRIPS) Branch strip Sliding 2021-09 Yes Subcutaneo Univ ers Scale 10-28 us, TID ity of Insulin - 23:00: MEALS+HS, [place] Lispro 00 First dose Medical (HumaLOG) + on Tue Branch Fsbg 08/27/22 at Testing 1700, Until Discontinu ed, Routine carvediloL 2021-09- No 6.25mg 6.25 mg, Univers (COREG) 10-28 Oral, BID ity of tablet 6.25 23:00: 15:39 MEALS, [place] mg 00 :04 First dose Medical on Tue Branch 08/27/22 at 1700, Until Discontinu ed, Routine Sliding 2021-09- No Subcutaneo [facility] vers Scale 10-28 us, TID ity of Insulin - 23:00: 22:49 MEALS+HS, [place] Lispro 00 :38 First dose Medical (HumaLOG) + on Tue Branch Fsbg 08/27/22 at Testing 1700, Until Discontinu ed, Routine carvediloL 2021-09- No 6.25mg 6.25 mg, Univers (COREG) 10-28 Oral, BID ity of tablet 6.25 23:00: 15:39 MEALS, [place] mg 00 :04 First dose Medical on Tue Branch 08/27/22 at 1700, Until Discontinu ed, Routine iopamidol 2021-09- No ONCE INTRA U nivers (ISOVUE 10-28 PROCEDURE, ity o f 370-500 mL) 19:05: 19:22 [place] injection 14 :45 on Tue [facility] 08/27/22 at Branch 1305, Until Tue08/27/22 at 1322, Routine, CV Intraproce dure NaCl 0.9% 2021-09- No CONTINUOUS U nivers (NS) bolus 10-28 PRN, ity of infusion 18:53: 18:53 [place] 25 :25 on Tue [facility] 08/27/22 at Branch 1253, Until Discontinu ed, STAT, CV Intraproce dure nitroglycer 2021-09- No ONCE INTRA Univers in (TRIDIL) 10-28 PROCEDURE, i ty of 2 mg in 10 18:45: 19:22 [place] D5W for 00 :45 on Fri Medical Cardiac 08/27/22 at Branch Cath 1245, Until 08/27/22 at 1322, Routine, CV Intraproce dure heparin 2021-09- No ONCE INTRA Uni vers 1,000 10-28 PROCEDURE, ity of unit/mL 18:45: 19:22 Starting [place] injection 00 :45 on Fri Medical 08/27/22 at Branch 1245, Until Tue08/27/22 at 1322, Routine, CV Intraproce dure lidocaine 2021-09- No ONCE INTRA U nivers 1% (PF) 10-28 PROCEDURE, ity o f (XYLOCAINE) 18:43: 19:22 Starting [place] injection 27 :45 on Tue Medical 08/27/22 at Branch 1243, Until 08/27/22 at 1322, Routine, CV Intraproce dure midazolam 2021-09- No ONCE INTRA U nivers (VERSED) 10-28 PROCEDURE, ity of injection 18:31: 19:22 Starting [place] 22 :45 on Fri Medical 08/27/22 at Branch 1231, Until 08/27/22 at 1322, Routine, CV Intraproce dure FENTanyl PF 2021-09- No ONCE INTRA Univers (SUBLIMAZE 10-28 PROCEDURE, it y of (PF)) 18:29: 19:22 Starting [place] injection 25 :45 on Fri Medical 08/27/22 at Branch 1229, Until 08/27/22 at 1322, Routine, CV Intraproce dure sulfur 2021-09- No [id number] 5mL 5 mL, Unive rs hexafluorid 10-28 Intravenou i ty of e microsphr 15:30: 15:30 s, ONCE, 1 [place] (LUMASON) 00 :00 dose, On Medica l injection 5 Fri Branch mL 08/27/22 at 0930, Routine
member services coordinator approving Restricted medication : CARLY TURNER sulfur 2021-09- No [id number] 5mL 5 mL, Unive rs hexafluorid 10-28 Intravenou i ty of e microsphr 15:30: 15:30 s, ONCE, 1 [place] (LUMASON) 00 :00 dose, On Medica l injection 5 Fri Branch mL 08/27/22 at 0930, Routine
member services coordinator approving Restricted medication : YUE FALLONJANETTE pantoprazol 2021-09 Yes 40mg 40 mg, Univ ers e 10-28 Oral, ity of (PROTONIX) 15:00: DAILY, [place] EC tablet 00 First dose Medi christelle 40 mg on Fri Branch 08/27/22 at 0900, Until Discontinu ed, Routine aspirin 2021-09 Yes 81mg 81 mg, Univers chewable 10-28 Oral, ity of tablet 81 15:00: DAILY, [place] mg 00 First dose Medical on Fri Branch 08/27/22 at 0900, Until Discontinu ed, Routine tamsulosin 2021-09 Yes .4mg 0.4 mg, Univ ers (FLOMAX) 10-28 Oral, ity of capsule 0.4 15:00: DAILY, [place] mg 00 First dose Medical on Fri Branch 08/27/22 at 0900, Until Discontinu ed, Routine lisinopriL 2021-09 Yes 10mg 10 mg, Unive rs (PRINIVIL,Z 10-28 Oral, ity of ESTRIL) 15:00: DAILY, [place] tablet 10 00 First dose Medi christelle mg on Fri Branch 08/27/22 at 0900, Until Discontinu ed, Routine aspirin 2021-09 No 325mg 325 mg, Unive rs tablet 325 10-28 Oral, ity of mg 15:00: 12:23 DAILY, [place] 00 :40 First dose Medical on Fri Branch 08/27/22 at 0900, Until Discontinu ed, Routine pantoprazol 2021-09 No 40mg 40 mg, Uni vers e 10-28 Oral, ity of (PROTONIX) 15:00: 22:49 DAILY, [place] EC tablet 00 :38 First dose Medi christelle 40 mg on Fri Branch 08/27/22 at 0900, Until Discontinu ed, Routine aspirin 2021-09 No 81mg 81 mg, Univers chewable 10-28 Oral, ity of tablet 81 15:00: 22:49 DAILY, [place] mg 00 :38 First dose Medical on Tue Branch 08/27/22 at 0900, Until Discontinu ed, Routine tamsulosin 2021-09 .4mg 0.4 mg, Uni vers (FLOMAX) 10-28 Oral, ity of capsule 0.4 15:00: 22:49 DAILY, [place] mg 00 :38 First dose Medical on Tue Branch 08/27/22 at 0900, Until Discontinu ed, Routine lisinopriL 2021-09 No 10mg 10 mg, Univ ers (PRINIVIL,Z 10-28 Oral, ity of ESTRIL) 15:00: 22:49 DAILY, [place] tablet 10 00 :38 First dose Medi christelle mg on Tue Branch 08/27/22 at 0900, Until Discontinu ed, Routine aspirin 2021-09 No 325mg 325 mg, Unive rs tablet 325 10-28 Oral, ity of mg 15:00: 12:23 DAILY, [place] 00 :40 First dose Medical on Tue Branch 08/27/22 at 0900, Until Discontinu ed, Routine venlafaxine 2021-09 Yes 75mg 75 mg, Univ ers XR (EFFEXOR 10-28 Oral, QAM ity of XR) 24 hr 14:00: WITH [place] capsule 75 00 BREAKFAST, Med ical mg First dose Branch on Tue08/27/22 at 0800, Until Discontinu ed, Routine metoprolol 2021-09 No 50mg 50 mg, Univ ers tartrate 10-28 Oral, BID, ity of (LOPRESSOR) 14:00: 15:39 First dose [place] tablet 50 00 :04 on Fri Medical mg 08/27/22 at Branch 0800, Until Discontinu ed, Routine venlafaxine 2021-09 No 75mg 75 mg, Uni vers XR (EFFEXOR 10-28 Oral, QAM it y of XR) 24 hr 14:00: 22:49 WITH [place] capsule 75 00 :38 BREAKFAST, Med ical mg First dose Branch on Tue08/27/22 at 0800, Until Discontinu ed, Routine metoprolol 2021-09- No 50mg 50 mg, Univ ers tartrate 10-28 Oral, BID, ity of (LOPRESSOR) 14:00: 15:39 First dose [place] tablet 50 00 :04 on Fri Medical mg 08/27/22 at Branch 0800, Until Discontinu ed, Routine Sliding 2021-09 Subcutaneo Uni vers Scale 10-28 us, TID ity of Insulin - 14:00: 21:42 MEALS+HS, [place] Lispro 00 :38 First dose Medical (HumaLOG) + on Tue Branch Fsbg 08/27/22 at Testing 0800, Until Discontinu ed, Routine Sliding 2021-09 Subcutaneo Uni vers Scale 10-28 us, TID ity of Insulin - 14:00: 21:42 MEALS+HS, [place] Lispro 00 :38 First dose Medical (HumaLOG) + on Tue Branch Fsbg 08/27/22 at Testing 0800, Until Discontinu ed, Routine amLODIPine 2021-09- No 5mg 5 mg, Unive rs (NORVASC) 10-28 Oral, ity of tablet 5 mg 11:15: 13:19 Q24H, [place] 00 :48 First dose Medical on Tue Branch 08/27/22 at 0515, Until Discontinu ed, Routine amLODIPine 2021-09- No 5mg 5 mg, Unive rs (NORVASC) 10-28 Oral, ity of tablet 5 mg 11:15: 13:19 Q24H, [place] 00 :48 First dose Medical on Tue Branch 08/27/22 at 0515, Until Discontinu ed, Routine nitroglycer 2021-09 Yes .4mg 0.4 mg, Uni vers in 10-28 Sublingual ity of (NITROSTAT) 06:43: , Q5MIN [place] sublingual 02 PRN, Medical tablet 0.4 Starting Branc h mg on Tue08/27/22 at 0043, Until Discontinu ed, Routine, Chest pain nitroglycer 2021-09- No .4mg 0.4 mg, Un [place] in 10-28 Sublingual ity of (NITROSTAT) 06:43: 22:49 , Q5MIN [place] sublingual 02 :38 PRN, Medical tablet 0.4 Starting Branc h mg on 08/27/22 at 0043, Until 08/28/22 at 1649, Routine, Chest pain acetaminoph 2021-09 Yes 650mg 650 mg, Un august[place] en 10-28 Oral, ity of (TYLENOL) 06:41: Q6HPRN, [place] tablet 650 40 Starting Medic al mg on Tue Branch 08/27/22 at 0041, Until Discontinu ed, Routine, Pain (scale 1-3) acetaminoph 2021-09- No 650mg 650 mg, U nivers en 10-28 Oral, ity of (TYLENOL) 06:41: 22:49 Q6HPRN, [place] 650 40 :38 Starting Medic al mg on Tue Branch 08/27/22 at 0041, Until 08/28/22 at 1649, Routine, Pain (scale 1-3) busPIRone 2021-09 Yes 10mg 10 mg, Univer s (BUSPAR) 10-28 Oral, ity of tablet 10 06:39: BIDPRN, [place] mg 15 Starting Medical on Tue Branch 08/27/22 at 0039, Until Discontinu ed, Routine, anxiety busPIRone 2021-09- No 10mg 10 mg, Unive rs (BUSPAR) 10-28 Oral, ity of tablet 10 06:39: 22:49 BIDPRN, [place] 15 :38 Starting Medical on Tue Branch 08/27/22 at 0039, Until 08/28/22 at 1649, Routine, anxiety metoprolol 2021-09- No 5mg 5 mg, Slow Univers (LOPRESSOR) 10-28 IV Push, ity of injection 5 03:45: 03:50 ONCE, 1 [place] mg 00 :00 dose, On Medical [place] Branch 08/26/22 at 2145, DEREK HEPARIN 2021-09- No 4000U 4,000 Univers SODIUM 10-28 Units, IV ity of (PORCINE) 03:45: 03:51 Push, [place] 1,000 00 :00 ONCE, 1 Medical UNIT/ML dose, On Branch BOLUS ACS [place] ORDER SET 08/26/22 at 2145, DEREK metoprolol 2021-09- No 5mg 5 mg, Slow [facility] (LOPRESSOR) 10-28 IV Push, ity of injection 5 03:45: 03:50 ONCE, 1 [place] mg 00 :00 dose, On Medical [place] Branch 08/26/22 at 2145, DEREK HEPARIN 2021-09- No 4000U 4,000 [facility] SODIUM 10-28 Units, IV ity of (PORCINE) 03:45: 03:51 Push, [place] 1,000 00 :00 ONCE, 1 Medical UNIT/ML dose, On Branch BOLUS ACS [place] ORDER SET 08/26/22 at 2145, DEREK heparin 2021-09- No 0U/h 0-2,750 Univer s 25,000 10-28 Units/hr ity of Units/250 03:38: 15:34 (0[place]27.5 [place] mL 07 :37 mL/hr), IV Medical (Premixed Infusion, Branc h Bag) in TITRATE, 0.45 % NS Parameters in Admin. Instr., Starting on [place] 08/26/22 at 2138
In itiate infusion at 12 units/kg/h r calculated as: 1,000 Units/hr (Maximum initial rate: 1,000 Units/hr, then adjust dose as needed per aPTT).&nbs p; CA UTION - If LMWH given in ER, AVOID bolus and start next dose/drip 12 hrs after ER dosage.&nb sp; M ust program rate using programmab le infusion pump.&nbsp ; Idania ck with the ordering provider first prior to any administra tion should the patient be on existing/a dditional anticoagul ant therapy. Range, Dosing and Testing: &nbs p;FOR [facility], [facility], AND [facility] ONLY &nbs p; - aPTT < 35: & nbsp;Bolus 5000 units, increase rate 300 units/hr&n bsp; - aPTT 35-44:&nbs p; Isauro lizz 3000 units, increase rate 200 units/hr&n bsp; - aPTT 45-54:&nbs p; In crease rate 100 units/hr&n bsp; - aPTT 55-85:&nbs p; NO CHANGE&nbs p; - aPTT 86-95:&nbs p; De crease rate 100 units/hr&n bsp; - aPTT 96-120:&nb sp; H old 30 minutes, decrease rate 150 units/hr&n bsp; - aPTT > 120: Hold 60 minutes, decrease rate 200 units/hr&n bsp; Check aPTT 6 hours after initiation , then Q6H after every change, aPTT Q12H once therapeuti c levels are reached.&n bsp;
&nbs p;FOR [facility] ONLY - aPTT < 40: & nbsp;Bolus 5000 units, increase rate 300 units/hr&n bsp; - aPTT 40-49:&nbs p; Isauro lizz 3000 units, increase rate 200 units/hr&n bsp; - aPTT 50-59:&nbs p; In crease rate 100 units/hr&n bsp; - aPTT 60-85:&nbs p;&nbs p;NO CHANGE&nbs p; - aPTT 86-95:&nbs p; De crease rate 100 units/hr&n bsp; - aPTT 96-120:&nb sp; H old 30 minutes, decrease rate 150 units/hr&n bsp; - aPTT > 120: Hold 60 minutes, decrease rate 200 units/hr&n bsp; Check aPTT 6 hours after initiation , then Q6H after every change, aPTT Q12H once therapeuti c levels are reached.&a mp;nbsp;&n bsp; DO NOT ADJUST INITIAL BOLUS OR INITIAL INFUSION RATE.
heparin 2021-09- No 0U/h 0-2,750 Univer s 25,000 2-02 12-03 Units/hr ity of Units/250 03:38: 15:34 (0[place]27.5 [place] 07 :37 mL/hr), IV Medical (Premixed Infusion, Branc h Bag) in TITRATE, 0.45 % NS Parameters in Admin. Instr., Starting on [place] 08/26/22 at 2138
In itiate infusion at 12 units/kg/h r calculated as: 1,000 Units/hr (Maximum initial rate: 1,000 Units/hr, then adjust dose as needed per aPTT).&nbs p; CA UTION - If LMWH given in ER, AVOID bolus and start next dose/drip 12 hrs after ER dosage.&nb sp; M ust program rate using programmab le infusion pump.&nbsp ; Idania ck with the ordering provider first prior to any administra tion should the patient be on existing/a dditional anticoagul ant therapy. Range, Dosing and Testing: &nbs p;FOR [facility], [facility], AND [facility] ONLY &nbs p; - aPTT < 35: & nbsp;Bolus 5000 units, increase rate 300 units/hr&n bsp; - aPTT 35-44:&nbs p; Isauro lizz 3000 units, increase rate 200 units/hr&n bsp; - aPTT 45-54:&nbs p; In crease rate 100 units/hr&n bsp; - aPTT 55-85:&nbs p; NO CHANGE&nbs p; - aPTT 86-95:&nbs p; De crease rate 100 units/hr&n bsp; - aPTT 96-120:&nb sp; H old 30 minutes, decrease rate 150 units/hr&n bsp; - aPTT > 120: Hold 60 minutes, decrease rate 200 units/hr&n bsp; Check aPTT 6 hours after initiation , then Q6H after every change, aPTT Q12H once therapeuti c levels are reached.&n bsp;
&nbs p;FOR [facility] ONLY - aPTT < 40: & nbsp;Bolus 5000 units, increase rate 300 units/hr&n bsp; - aPTT 40-49:&nbs p; Isauro lizz 3000 units, increase rate 200 units/hr&n bsp; - aPTT 50-59:&nbs p; In crease rate 100 units/hr&n bsp; - aPTT 60-85:&nbs p;&nbs p;NO CHANGE&nbs p; - aPTT 86-95:&nbs p; De crease rate 100 units/hr&n bsp; - aPTT 96-120:&nb sp; H old 30 minutes, decrease rate 150 units/hr&n bsp; - aPTT > 120: Hold 60 minutes, decrease rate 200 units/hr&n bsp; Check aPTT 6 hours after initiation , then Q6H after every change, aPTT Q12H once therapeuti c levels are reached.&a mp;nbsp;&n bsp; DO NOT ADJUST INITIAL BOLUS OR INITIAL INFUSION RATE.
heparin 2021-09 3000U FOR Univers (1,000 10-28 REBOLUSING ity of unit/mL, 10 03:37: 15:34 , Starting [place] mL vial) 50 :37 on [facility] for 08/26/22 at [facility] 213, Until 08/28/22 at 0934, Routine
Dosing based on aPPT testing parameters (refer to continuous heparin drip order).
heparin 2021-09 3000U FOR Univers (1,000 10-28 REBOLUSING ity of unit/mL, 10 03:37: 15:34 , Starting [place] mL vial) 50 :37 on [facility] for 08/26/22 at [facility] 213, Until 08/28/22 at 0934, Routine
Dosing based on aPPT testing parameters (refer to continuous heparin drip order).
cloNIDine 2021-09 No .1mg 0.1 mg, [facility] ers (CATAPRES) 10-28 Oral, ity of tablet 0.1 02:15: 02:09 ONCE, 1 [place] mg 00 :00 dose, On [facility] 08/26/22 at 2014, STAT cloNIDine 2021-09 No .1mg 0.1 mg, [facility] ers (CATAPRES) 10-28 Oral, ity of tablet 0.1 02:15: 02:09 ONCE, 1 [place] mg 00 :00 dose, On [facility] 08/26/22 at 2014, STAT metoprolol 2021-09 No 25mg 25 mg, [facility] ers tartrate 10-28 Oral, ONCE ity of (LOPRESSOR) 00:45: 00:15 NOW, 1 [place] tablet 25 00 :00 dose, On Medica l mg [facility] 08/26/22 at 1845, DEREK metoprolol 2021-09 No 25mg 25 mg, [facility] ers tartrate 10-28 Oral, ONCE ity of (LOPRESSOR) 00:45: 00:15 NOW, 1 [place] tablet 25 00 :00 dose, On Medica l mg [place] [facility] 08/26/22 at 1845, DEREK metoprolol 2021-09 No 5mg 5 mg, Slow Univers (LOPRESSOR) 10-27 IV Push, ity of injection 5 23:30: 23:48 ONCE, 1 [place] mg 00 :00 dose, On Medical [place] Branch 08/26/22 at 1730, DEREK metoprolol 2021-09 No 5mg 5 mg, Slow Univers (LOPRESSOR) 10-27 IV Push, ity of injection 5 23:30: 23:48 ONCE, 1 [place] mg 00 :00 dose, On Medical [place] Branch 08/26/22 at 1730, [facility] busPIRone 2021-09 Yes [id number] 10mg Take 1 U nivers 10 mg 1-01 tablet by ity of tablet 00:00: mouth 2 (two) Medical times Branch daily as needed for Other (anxiety). metoprolol 2021-09 Yes [id number] 50mg Take 2 U nivers tartrate 25 1-01 tablets by it y of mg tablet 00:00: mouth [place] 00 the Medical morning Branch and 2 tablets in the evening. busPIRone 2021-09 Yes [id number] 10mg Take 1 U nivers 10 mg 1-01 tablet by ity of tablet 00:00: mouth 2 (two) Medical times Branch daily as needed for Other (anxiety). metoprolol 2021-09 Yes [id number] 50mg Take 2 U nivers tartrate 25 1-01 tablets by it y of mg tablet 00:00: mouth [place] 00 the Medical morning Branch and 2 tablets in the evening. busPIRone 2021-09 Yes [id number] 10mg Take 1 U nivers 10 mg 1-01 tablet by ity of tablet 00:00: mouth 2 00 (two) Medical times Branch daily as needed for Other (anxiety). metoprolol 2021-09 Yes [id number] 50mg Take 2 U nivers tartrate 25 1-01 tablets by it y of mg tablet 00:00: mouth [place] 00 the Medical morning Branch and 2 tablets in the evening. busPIRone 2021-09 Yes [id number] 10mg Take 1 U nivers 10 mg 1-01 tablet by ity of tablet 00:00: mouth (two) Medical times Branch daily as needed for Other (anxiety). metoprolol 2021-09 Yes [id number] 50mg Take 2 U nivers tartrate 25 1-01 tablets by it y of mg tablet 00:00: mouth [place] 00 the Medical morning Branch and 2 tablets in the evening. busPIRone 2021-09 Yes [id number] 10mg Take 1 U nivers 10 mg 1-01 tablet by ity of tablet 00:00: mouth 2 (two) Medical times Branch daily as needed for Other (anxiety). metoprolol 2021-09 Yes [id number] 50mg Take 2 U nivers tartrate 25 1-01 tablets by it y of mg tablet 00:00: mouth [place] the Medical morning Branch and 2 tablets in the evening. busPIRone 2021-09 Yes [id number] 10mg Take 1 U nivers 10 mg 1-01 tablet by ity of tablet 00:00: mouth ([facility]) Medical times Branch daily as needed for Other (anxiety). metoprolol 2021-09 Yes [id number] 50mg Take 2 U nivers tartrate 25 1-01 tablets by it y of mg tablet 00:00: mouth [place] morning Branch and 2 tablets in the evening. busPIRone 2021-09 Yes [id number] 10mg Take 1 U nivers 10 mg 1-01 tablet by ity of tablet 00:00: mouth ([facility]) Medical times Branch daily as needed for Other (anxiety). metoprolol 2021-09 Yes [id number] 50mg Take 2 U nivers tartrate 25 1-01 tablets by it y of mg tablet 00:00: mouth [place] 00 the Medical morning Branch and 2 tablets in the evening. busPIRone 2021-09 Yes [id number] 10mg Take 1 U nivers 10 mg 1-01 tablet by ity of tablet 00:00: mouth 2 (two) Medical times Branch daily as needed for Other (anxiety). metoprolol 2021-09 Yes [id number] 50mg Take 2 U nivers tartrate 25 1-01 tablets by it y of mg tablet 00:00: mouth [place] 00 the Medical morning Branch and 2 tablets in the evening. busPIRone 2021-09 Yes [id number] 10mg Take 1 U nivers 10 mg 1-01 tablet by ity of tablet 00:00: mouth 2 (two) Medical times Branch daily as needed for Other (anxiety). metoprolol 2021-09 Yes [id number] 50mg Take 2 U nivers tartrate 25 1-01 tablets by it y of mg tablet 00:00: mouth [place] 00 the Medical morning Branch and 2 tablets in the evening. busPIRone 2021-09 Yes [id number] 10mg Take 1 U nivers 10 mg 1-01 tablet by ity of tablet 00:00: mouth (two) Medical times Branch daily as needed for Other (anxiety). busPIRone 2021-09 Yes [id number] 10mg Take 1 U nivers 10 mg 1-01 tablet by ity of tablet 00:00: mouth (two) Medical times Branch daily as needed for Other (anxiety). busPIRone 2021-09 Yes [id number] 10mg Take 1 U nivers 10 mg 1-01 tablet by ity of tablet 00:00: mouth (two) Medical times Branch daily as needed for Other (anxiety). busPIRone 2021-09 Yes [id number] 10mg Take 1 U nivers 10 mg 1-01 tablet by ity of tablet 00:00: mouth 2 (two) Medical times Branch daily as needed for Other (anxiety). busPIRone 2021-09 Yes [id number] 10mg Take 1 U nivers 10 mg 1-01 tablet by ity of tablet 00:00: mouth 2 (two) Medical times Branch daily as needed for Other (anxiety). busPIRone 2021-09 Yes [id number] 10mg Take 1 U nivers 10 mg 1-01 tablet by ity of tablet 00:00: mouth 2 (two) Medical times Branch daily as needed for Other (anxiety). busPIRone 2021-09 Yes [id number] 10mg Take 1 U nivers 10 mg 1-01 tablet by ity of tablet 00:00: mouth 2 (two) Medical times Branch daily as needed for Other (anxiety). busPIRone 2021-09 Yes [id number] 10mg Take 1 U nivers 10 mg 1-01 tablet by ity of tablet 00:00: mouth 2 [place] 00 (two) Medical times Branch daily as needed for Other (anxiety). busPIRone 2021-09 Yes [id number] 10mg Take 1 U nivers 10 mg 1-01 tablet by ity of tablet 00:00: mouth 2 [place] 00 (two) Medical times Branch daily as needed for Other (anxiety). busPIRone 2021-09 Yes [id number] 10mg Take 1 U nivers 10 mg 1-01 tablet by ity of tablet 00:00: mouth 2 [place] 00 (two) Medical times Branch daily as needed for Other (anxiety). busPIRone 2021-09 Yes [id number] 10mg Take 1 U nivers 10 mg 1-01 tablet by ity of tablet 00:00: mouth 2 [place] 00 (two) Medical times Branch daily as needed for Other (anxiety). busPIRone 2021-09 Yes [id number] 10mg Take 1 U nivers 10 mg 1-01 tablet by ity of tablet 00:00: mouth 2 00 (two) Medical times Branch daily as needed for Other (anxiety). busPIRone 2021-09 Yes [id number] 10mg Take 1 U nivers 10 mg 1-01 tablet by ity of tablet 00:00: mouth 2 [place] 00 (two) Medical times Branch daily as needed for Other (anxiety). busPIRone 2021-09 Yes [id number] 10mg Take 1 U nivers 10 mg 1-01 tablet by ity of tablet 00:00: mouth 2 [place] 00 (two) Medical times Branch daily as needed for Other (anxiety). busPIRone 2021-09 Yes [id number] 10mg Take 1 U nivers 10 mg 1-01 tablet by ity of tablet 00:00: mouth 2 [place] 00 (two) Medical times Branch daily as needed for Other (anxiety). busPIRone 2021-09 Yes [id number] 10mg Take 1 U nivers 10 mg 1-01 tablet by ity of tablet 00:00: mouth 2 [place] 00 (two) Medical times Branch daily as needed for Other (anxiety). busPIRone 2021-09 Yes [id number] 10mg Take 1 U nivers 10 mg 1-01 tablet by ity of tablet 00:00: mouth 2 00 (two) Medical times Branch daily as needed for Other (anxiety). busPIRone 2021-09 Yes [id number] 10mg Take 1 U nivers 10 mg 1-01 tablet by ity of tablet 00:00: mouth 2 00 (two) Medical times Branch daily as needed for Other (anxiety). busPIRone 2021-09 Yes [id number] 10mg Take 1 U nivers 10 mg 1-01 tablet by ity of tablet 00:00: mouth 2 00 (two) Medical times Branch daily as needed for Other (anxiety). busPIRone 2021-09 Yes [id number] 10mg Take 1 U nivers 10 mg 1-01 tablet by ity of tablet 00:00: mouth 2 (two) Medical times Branch daily as needed for Other (anxiety). busPIRone 2021-09 Yes [id number] 10mg Take 1 U nivers 10 mg 1-01 tablet by ity of tablet 00:00: mouth 2 (two) Medical times Branch daily as needed for Other (anxiety). busPIRone 2021-09 Yes [id number] 10mg Take 1 U nivers 10 mg 1-01 tablet by ity of tablet 00:00: mouth 2 00 (two) Medical times Branch daily as needed for Other (anxiety). busPIRone 2021-09 Yes [id number] 10mg Take 1 U nivers 10 mg 1-01 tablet by ity of tablet 00:00: mouth 2 (two) Medical times Branch daily as needed for Other (anxiety). metoprolol 2021-09- No [id number] 50mg Take 2 Univers tartrate 25 09-26 tablets by i ty of mg tablet 00:00: 00:00 mouth in [place] 00 :00 the Medical morning Branch and 2 tablets in the evening. metoprolol 2021-09- No [id number] 50mg Take 2 Univers tartrate 25 09-26 tablets by i ty of mg tablet 00:00: 00:00 mouth in [place] 00 :00 the Medical morning Branch and 2 tablets in the evening. venlafaxine 2021- No 75mg Take 75 mg Univers XR 75 mg 24 06-22 by mouth ity of hr capsule 11:11: 00:00 daily with [place] 26 :00 breakfast. Medical Branch lisinopriL 2021- No 10mg Take 10 mg Univers 10 mg 06-22 by mouth ity of tablet 11:11: 00:00 in the [place] 26 :00 morning. Medical Branch metoprolol 2021- No 25mg Take 25 mg Univers tartrate 25 06-22 by mouth ity of mg tablet 11:11: 00:00 in the [place] 26 :00 morning Medical and 25 mg Branch in the evening. venlafaxine 2021- No 75mg Take 75 mg Univers XR 75 mg 24 06-22 by mouth ity of hr capsule 11:11: 00:00 daily with [place] 26 :00 breakfast. Medical Branch lisinopriL 2021- No 10mg Take 10 mg Univers 10 mg 06-22 by mouth ity of tablet 11:11: 00:00 in the [place] 26 :00 morning. Medical Branch metoprolol 2021- No 25mg Take 25 mg Univers tartrate 25 06-22 by mouth ity of mg tablet 11:11: 00:00 in the [place] 26 :00 morning Medical and 25 mg Branch in the evening. aspirin 81 2021- No 81mg Take 81 mg Univers mg EC 06-22 by mouth ity of tablet 11:02: 00:00 daily. [place] 39 :00 Medical Branch aspirin 81 2021- No 81mg Take 81 mg Univers mg EC 06-22 by mouth ity of tablet 11:02: 00:00 daily. [place] 39 :00 Medical Branch lisinopriL 0 Yes [id number] 10mg Take 1 U nivers 10 mg 06-22 tablet by ity of tablet 00:00: mouth in [place] 00 the Medical morning. Branch metoprolol 0 Yes [id number] 25mg Take 1 U nivers tartrate 25 06-22 tablet by ity of mg tablet 00:00: mouth in [facility] 00 the Medical morning Branch and 1 tablet in the evening. venlafaxine 2021-0 Yes [id number] 75mg Take 1 Univers XR 75 mg 24 9-27 capsule by it y of hr capsule 00:00: mouth [place] 00 daily with Medical breakfast. Branch tamsulosin 2021-0 Yes [id number] .4mg Take 1 U nivers 0.4 mg 24 9-27 capsule by ity of hr capsule 00:00: mouth in [place] 00 the Medical morning. Branch lisinopriL 2021-0 Yes [id number] 10mg Take 1 U nivers 10 mg 9-27 tablet by ity of tablet 00:00: mouth in [place] 00 the Medical morning. Branch metoprolol 2021-0 Yes [id number] 25mg Take 1 U nivers tartrate 25 9-27 tablet by ity of mg tablet 00:00: mouth [place] 00 the Medical morning Branch and 1 tablet in the evening. venlafaxine 2021-0 Yes [id number] 75mg Take 1 Univers XR 75 mg 24 9-27 capsule by it y of hr capsule 00:00: mouth [place] 00 daily with Medical breakfast. Branch tamsulosin 2021-0 Yes [id number] .4mg Take 1 U nivers 0.4 mg 24 9-27 capsule by ity of hr capsule 00:00: mouth in [place] 00 the Medical morning. Branch lisinopriL 2021-0 Yes [id number] 10mg Take 1 U nivers 10 mg 9-27 tablet by ity of tablet 00:00: mouth in [place] 00 the Medical morning. Branch metoprolol 2021-0 Yes [id number] 25mg Take 1 U nivers tartrate 25 9-27 tablet by ity of mg tablet 00:00: mouth [place] 00 the Medical morning Branch and 1 tablet in the evening. venlafaxine 2021-0 Yes [id number] 75mg Take 1 Univers XR 75 mg 24 9-27 capsule by it y of hr capsule 00:00: mouth [place] 00 daily with Medical breakfast. Branch tamsulosin 2021-0 Yes [id number] .4mg Take 1 U nivers 0.4 mg 24 9-27 capsule by ity of hr capsule 00:00: mouth in [place] 00 the Medical morning. Branch lisinopriL 2021-0 Yes [id number] 10mg Take 1 U nivers 10 mg 9-27 tablet by ity of tablet 00:00: mouth in [place] 00 the Medical morning. Branch metoprolol 2021-0 Yes [id number] 25mg Take 1 U nivers tartrate 25 9-27 tablet by ity of mg tablet 00:00: mouth [place] 00 the Medical morning Branch and 1 tablet in the evening. venlafaxine 2-0 Yes [id number] 75mg Take 1 Univers XR 75 mg 24 9-27 capsule by it y of hr capsule 00:00: mouth [place] 00 daily with Medical breakfast. Branch tamsulosin 2021-0 Yes [id number] .4mg Take 1 U nivers 0.4 mg 24 9-27 capsule by ity of hr capsule 00:00: mouth in [place] 00 the Medical morning. Branch lisinopriL 2021-0 Yes [id number] 10mg Take 1 U nivers 10 mg 9-27 tablet by ity of tablet 00:00: mouth in [place] 00 the Medical morning. Branch metoprolol 2021-0 Yes [id number] 25mg Take 1 U nivers tartrate 25 9-27 tablet by ity of mg tablet 00:00: mouth in [facility] s 00 the Medical morning Branch and 1 tablet in the evening. venlafaxine 2021-0 Yes [id number] 75mg Take 1 Univers XR 75 mg 24 9-27 capsule by it y of hr capsule 00:00: mouth [place] 00 daily with Medical breakfast. Branch tamsulosin 2021-0 Yes [id number] .4mg Take 1 U nivers 0.4 mg 24 9-27 capsule by ity of hr capsule 00:00: mouth in [place] 00 the Medical morning. Branch lisinopriL 2021-0 Yes [id number] 10mg Take 1 U nivers 10 mg 9-27 tablet by ity of tablet 00:00: mouth in [place] 00 the Medical morning. Branch venlafaxine 2021-0 Yes [id number] 75mg Take 1 [facility] XR 75 mg 24 9-27 capsule by it y of hr capsule 00:00: mouth [place] 00 daily with Medical breakfast. Branch tamsulosin 2-0 Yes [id number] .4mg Take 1 U nivers 0.4 mg 24 9-27 capsule by ity of hr capsule 00:00: mouth in [place] 00 the Medical morning. Branch lisinopriL 2-0 Yes [id number] 10mg Take 1 U nivers 10 mg 9-27 tablet by ity of tablet 00:00: mouth in [place] 00 the Medical morning. Branch venlafaxine 2-0 Yes [id number] 75mg Take 1 [facility] XR 75 mg 24 9-27 capsule by it y of hr capsule 00:00: mouth [place] 00 daily with Medical breakfast. Branch tamsulosin 2021-0 Yes [id number] .4mg Take 1 U nivers 0.4 mg 24 9-27 capsule by ity of hr capsule 00:00: mouth in [facility] as 00 the Medical morning. Branch lisinopriL 2021-0 Yes [id number] 10mg Take 1 U nivers 10 mg 9-27 tablet by ity of tablet 00:00: mouth in [place] 00 the Medical morning. Branch venlafaxine 2021-0 Yes [id number] 75mg Take 1 [facility] XR 75 mg 24 9-27 capsule by it y of hr capsule 00:00: mouth [place] 00 daily with Medical breakfast. Branch tamsulosin 2021-0 Yes [id number] .4mg Take 1 U nivers 0.4 mg 24 9-27 capsule by ity of hr capsule 00:00: mouth in [facility] as 00 the Medical morning. Branch lisinopriL 2021-0 Yes [id number] 10mg Take 1 U nivers 10 mg 9-27 tablet by ity of tablet 00:00: mouth in [place] the Medical morning. Branch venlafaxine 2021-0 Yes [id number] 75mg Take 1 [facility] XR 75 mg 24 9-27 capsule by it y of hr capsule 00:00: mouth [place] 00 daily with Medical breakfast. Branch tamsulosin 2-0 Yes [id number] .4mg Take 1 U nivers 0.4 mg 24 9-27 capsule by ity of hr capsule 00:00: mouth in [facility] as 00 the Medical morning. Branch lisinopriL 2-0 Yes [id number] 10mg Take 1 U nivers 10 mg 9-27 tablet by ity of tablet 00:00: mouth in [place] 00 the Medical morning. Branch venlafaxine 2-0 Yes [id number] 75mg Take 1 [facility] XR 75 mg 24 9-27 capsule by it y of hr capsule 00:00: mouth [place] 00 daily with Medical breakfast. Branch tamsulosin 2-0 Yes [id number] .4mg Take 1 U nivers 0.4 mg 24 9-27 capsule by ity of hr capsule 00:00: mouth in [place] 00 the Medical morning. Branch lisinopriL 2-0 Yes [id number] 10mg Take 1 U nivers 10 mg 9-27 tablet by ity of tablet 00:00: mouth in [place] 00 the Medical morning. Branch venlafaxine 2-0 Yes [id number] 75mg Take 1 [facility] XR 75 mg 24 9-27 capsule by it y of hr capsule 00:00: mouth [place] 00 daily with Medical breakfast. Branch tamsulosin 2021-0 Yes [id number] .4mg Take 1 U nivers 0.4 mg 24 9-27 capsule by ity of hr capsule 00:00: mouth in [place] 00 the Medical morning. Branch lisinopriL 2021-0 Yes [id number] 10mg Take 1 U nivers 10 mg 9-27 tablet by ity of tablet 00:00: mouth in [place] 00 the Medical morning. Branch venlafaxine 2021-0 Yes [id number] 75mg Take 1 [facility] XR 75 mg 24 9-27 capsule by it y of hr capsule 00:00: mouth [place] 00 daily with Medical breakfast. Branch tamsulosin 2021-0 Yes [id number] .4mg Take 1 U nivers 0.4 mg 24 9-27 capsule by ity of hr capsule 00:00: mouth in [facility] as 00 the Medical morning. Branch lisinopriL 2021-0 Yes [id number] 10mg Take 1 U nivers 10 mg 9-27 tablet by ity of tablet 00:00: mouth in [place] 00 the Medical morning. Branch venlafaxine 2-0 Yes [id number] 75mg Take 1 [facility] XR 75 mg 24 9-27 capsule by it y of hr capsule 00:00: mouth [place] 00 daily with Medical breakfast. Branch tamsulosin 2-0 Yes [id number] .4mg Take 1 U nivers 0.4 mg 24 9-27 capsule by ity of hr capsule 00:00: mouth in [place] 00 the Medical morning. Branch lisinopriL 2-0 Yes [id number] 10mg Take 1 U nivers 10 mg 9-27 tablet by ity of tablet 00:00: mouth in [place] 00 the Medical morning. Branch venlafaxine 2-0 Yes [id number] 75mg Take 1 [facility] XR 75 mg 24 9-27 capsule by it y of hr capsule 00:00: mouth [place] 00 daily with Medical breakfast. Branch tamsulosin 2021-0 Yes [id number] .4mg Take 1 U nivers 0.4 mg 24 9-27 capsule by ity of hr capsule 00:00: mouth in [place] 00 the Medical morning. Branch venlafaxine 2021-0 Yes [id number] 75mg Take 1 [facility] XR 75 mg 24 9-27 capsule by it y of hr capsule 00:00: mouth [place] 00 daily with Medical breakfast. Branch tamsulosin 2021-0 Yes [id number] .4mg Take 1 U nivers 0.4 mg 24 9-27 capsule by ity of hr capsule 00:00: mouth in [place] 00 the Medical morning. Branch venlafaxine 2021-0 Yes [id number] 75mg Take 1 [facility] XR 75 mg 24 9-27 capsule by it y of hr capsule 00:00: mouth [place] 00 daily with Medical breakfast. Branch tamsulosin 2021-0 Yes [id number] .4mg Take 1 [facility] nivers 0.4 mg 24 9-27 capsule by ity of hr capsule 00:00: mouth in [place] as 00 the Medical morning. Branch venlafaxine 2021-0 Yes [id number] 75mg Take 1 [facility] XR 75 mg 24 9-27 capsule by it y of hr capsule 00:00: mouth [place] 00 daily with Medical breakfast. Branch tamsulosin 2021-0 Yes [id number] .4mg Take 1 [facility] nivers 0.4 mg 24 9-27 capsule by ity of hr capsule 00:00: mouth in [place] 00 the Medical morning. Branch venlafaxine 2-0 Yes [id number] 75mg Take 1 [facility] XR 75 mg 24 9-27 capsule by it y of hr capsule 00:00: mouth [place] 00 daily with Medical breakfast. Branch tamsulosin 2-0 Yes [id number] .4mg Take 1 [facility] nivers 0.4 mg 24 9-27 capsule by ity of hr capsule 00:00: mouth in [place] 00 the Medical morning. Branch venlafaxine 2-0 Yes [id number] 75mg Take 1 [facility] XR 75 mg 24 9-27 capsule by it y of hr capsule 00:00: mouth [place] 00 daily with Medical breakfast. Branch tamsulosin 2-0 Yes [id number] .4mg Take 1 [facility] nivers 0.4 mg 24 9-27 capsule by ity of hr capsule 00:00: mouth in [place] 00 the Medical morning. Branch venlafaxine 2-0 Yes [id number] 75mg Take 1 [facility] XR 75 mg 24 9-27 capsule by it y of hr capsule 00:00: mouth [place] 00 daily with Medical breakfast. Branch tamsulosin 2021-0 Yes [id number] .4mg Take 1 [facility] nivers 0.4 mg 24 9-27 capsule by ity of hr capsule 00:00: mouth in [place] 00 the Medical morning. Branch venlafaxine 2-0 Yes [id number] 75mg Take 1 [facility] XR 75 mg 24 9-27 capsule by it y of hr capsule 00:00: mouth [place] 00 daily with Medical breakfast. Branch tamsulosin 2021-0 Yes [id number] .4mg Take 1 [facility] nivers 0.4 mg 24 9-27 capsule by ity of hr capsule 00:00: mouth in [place] 00 the Medical morning. Branch venlafaxine 2021-0 Yes [id number] 75mg Take 1 [facility] XR 75 mg 24 9-27 capsule by it y of hr capsule 00:00: mouth [place] 00 daily with Medical breakfast. Branch tamsulosin 2021-0 Yes [id number] .4mg Take 1 [facility] nivers 0.4 mg 24 9-27 capsule by ity of hr capsule 00:00: mouth in [place] 00 the Medical morning. Branch venlafaxine 2-0 Yes [id number] 75mg Take 1 [facility] XR 75 mg 24 9-27 capsule by it y of hr capsule 00:00: mouth [place] 00 daily with Medical breakfast. Branch tamsulosin 2-0 Yes [id number] .4mg Take 1 [facility] nivers 0.4 mg 24 9-27 capsule by ity of hr capsule 00:00: mouth in [place] 00 the Medical morning. Branch venlafaxine 2-0 Yes [id number] 75mg Take 1 [facility] XR 75 mg 24 9-27 capsule by it y of hr capsule 00:00: mouth [place] 00 daily with Medical breakfast. Branch tamsulosin 2-0 Yes [id number] .4mg Take 1 [facility] nivers 0.4 mg 24 9-27 capsule by ity of hr capsule 00:00: mouth in [place] 00 the Medical morning. Branch venlafaxine 2-0 Yes [id number] 75mg Take 1 [facility] XR 75 mg 24 9-27 capsule by it y of hr capsule 00:00: mouth [place] 00 daily with Medical breakfast. Branch tamsulosin 2-0 Yes [id number] .4mg Take 1 [facility] nivers 0.4 mg 24 9-27 capsule by ity of hr capsule 00:00: mouth in [place] 00 the Medical morning. Branch venlafaxine 2021-0 Yes [id number] 75mg Take 1 [facility] XR 75 mg 24 9-27 capsule by it y of hr capsule 00:00: mouth [place] 00 daily with Medical breakfast. Branch tamsulosin 2021-0 Yes [id number] .4mg Take 1 [facility] nivers 0.4 mg 24 9-27 capsule by ity of hr capsule 00:00: mouth in [place] 00 the Medical morning. Branch venlafaxine 2021-0 Yes [id number] 75mg Take 1 [facility] XR 75 mg 24 9-27 capsule by it y of hr capsule 00:00: mouth [place] 00 daily with Medical breakfast. Branch tamsulosin 2021-0 Yes [id number] .4mg Take 1 U nivers 0.4 mg 24 9-27 capsule by ity of hr capsule 00:00: mouth in [place] 00 the Medical morning. Branch venlafaxine 2021-0 Yes [id number] 75mg Take 1 [facility] XR 75 mg 24 9-27 capsule by it y of hr capsule 00:00: mouth [place] 00 daily with Medical breakfast. Branch tamsulosin 2-0 Yes [id number] .4mg Take 1 U nivers 0.4 mg 24 9-27 capsule by ity of hr capsule 00:00: mouth in [place] 00 the Medical morning. Branch venlafaxine 2-0 Yes [id number] 75mg Take 1 [facility] XR 75 mg 24 9-27 capsule by it y of hr capsule 00:00: mouth [place] 00 daily with Medical breakfast. Branch tamsulosin 2-0 Yes [id number] .4mg Take 1 [facility] nivers 0.4 mg 24 9-27 capsule by ity of hr capsule 00:00: mouth in [place] 00 the Medical morning. Branch venlafaxine 2-0 Yes [id number] 75mg Take 1 [facility] XR 75 mg 24 9-27 capsule by it y of hr capsule 00:00: mouth [place] 00 daily with Medical breakfast. Branch tamsulosin 2021-0 Yes [id number] .4mg Take 1 [facility] nivers 0.4 mg 24 9-27 capsule by ity of hr capsule 00:00: mouth in [place] 00 the Medical morning. Branch venlafaxine 2021-0 Yes [id number] 75mg Take 1 [facility] XR 75 mg 24 9-27 capsule by it y of hr capsule 00:00: mouth [place] 00 daily with Medical breakfast. Branch tamsulosin 2021-0 Yes [id number] .4mg Take 1 [facility] nivers 0.4 mg 24 9-27 capsule by ity of hr capsule 00:00: mouth in [place] 00 the Medical morning. Branch venlafaxine 2021-0 Yes [id number] 75mg Take 1 [facility] XR 75 mg 24 9-27 capsule by it y of hr capsule 00:00: mouth [place] 00 daily with Medical breakfast. Branch tamsulosin 2021-0 Yes [id number] .4mg Take 1 [facility] nivers 0.4 mg 24 9-27 capsule by ity of hr capsule 00:00: mouth in [place] 00 the Medical morning. Branch venlafaxine 2021-0 Yes [id number] 75mg Take 1 [facility] XR 75 mg 24 9-27 capsule by it y of hr capsule 00:00: mouth [place] 00 daily with Medical breakfast. Branch tamsulosin 2021-0 Yes [id number] .4mg Take 1 [facility] nivers 0.4 mg 24 9-27 capsule by ity of hr capsule 00:00: mouth in [place] 00 the Medical morning. Branch venlafaxine 2021-0 Yes [id number] 75mg Take 1 [facility] XR 75 mg 24 9-27 capsule by it y of hr capsule 00:00: mouth [place] 00 daily with Medical breakfast. Branch tamsulosin 2021-0 Yes [id number] .4mg Take 1 [facility] nivers 0.4 mg 24 9-27 capsule by ity of hr capsule 00:00: mouth in [place] 00 the Medical morning. Branch venlafaxine 2-0 Yes [id number] 75mg Take 1 [facility] XR 75 mg 24 9-27 capsule by it y of hr capsule 00:00: mouth [place] 00 daily with Medical breakfast. Branch tamsulosin 2022-0 Yes [id number] .4mg Take 1 [facility] nivers 0.4 mg 24 9-27 capsule by ity of hr capsule 00:00: mouth in [facility] as 00 the Medical morning. Branch venlafaxine 2021-0 Yes [id number] 75mg Take 1 [facility] XR 75 mg 24 9-27 capsule by it y of hr capsule 00:00: mouth [place] 00 daily with Medical breakfast. Branch tamsulosin 2021-0 Yes [id number] .4mg Take 1 [facility] nivers 0.4 mg 24 9-27 capsule by ity of hr capsule 00:00: mouth in [place] 00 the Medical morning. Branch venlafaxine 2021-0 Yes [id number] 75mg Take 1 [facility] XR 75 mg 24 9-27 capsule by it y of hr capsule 00:00: mouth [place] 00 daily with Medical breakfast. Branch tamsulosin 0 Yes [id number] .4mg Take 1 U nivers 0.4 mg 24 9-27 capsule by ity of hr capsule 00:00: mouth in [facility] as 00 the Medical morning. Branch lisinopriL 2021- No [id number] 10mg Take 1 [facility] 10 mg 9-27 12-03 tablet by ity of tablet 00:00: 00:00 mouth in [place] 00 :00 the Medical morning. Branch lisinopriL 0 2021- No [id number] 10mg Take 1 [facility] 10 mg 9-27 12-03 tablet by ity of tablet 00:00: 00:00 mouth in [place] 00 :00 the Medical morning. Branch metoprolol 0 2021- No [id number] 25mg Take 1 [facility] tartrate 25 -22 08- tablet by it y of mg tablet 00:00: 00:00 mouth in [place] 00 :00 the Medical morning Branch and 1 tablet in the evening. metoprolol 0 2021- No [id number] 25mg Take 1 [facility] tartrate 25 9-27 11- tablet by it y of mg tablet 00:00: 00:[address] [facility] as 00 :00 the Medical morning Branch and 1 tablet in the evening. citalopram 2021-0 Yes [id number] 20mg Take 1 [facility] 20 mg 8-24 tablet by ity of tablet 00:00: mouth in [place] 00 the Medical morning. Branch ARIPiprazol 2022-0 Yes [id number] 5mg Take 1 [facility] e (ABILIFY) 8-24 tablet by ity of 5 mg tablet 00:00: mouth in [place] 00 the Medical morning. Branch citalopram 2021- No [id number] 20mg Take 1 [facility] 20 mg 05-19 tablet by ity of tablet 00:00: 00:00 mouth in [place] 00 :00 the Medical morning. Branch ARIPiprazol 2021- No [id number] 5mg Take 1 [facility] e (ABILIFY) 05-19 tablet by it y of 5 mg tablet 00:00: 00:00 mouth in [place] 00 :00 the Medical morning. Branch citalopram 2021- No [id number] 20mg Take 1 [facility] 20 mg 05-19 tablet by ity of tablet 00:00: 00:00 mouth in [place] 00 :00 the Medical morning. [place] ARIPiprazol 2021- No [id number] 5mg Take 1 [facility] e (ABILIFY) 05-19 tablet by it y of 5 mg tablet 00:00: 00:00 mouth in [place] 00 :00 the Medical morning. Branch ARIPiprazol Yes [id number] 5mg Take 1 [facility] e (ABILIFY) 5-26 tablet by ity of 5 mg tablet 00:00: mouth [place] 00 daily. [facility] ARIPiprazol 2021- No [id number] 5mg Take 1 [facility] e (ABILIFY) 5-26 -24 tablet by it y of 5 mg tablet 00:00: 00:00 mouth [place] 00 :00 daily. Medical Branch citalopram Yes [id number] 20mg Take 1 [facility] 20 mg 5-23 tablet by ity of tablet 00:00: mouth [place] 00 daily. Medical Branch citalopram Yes [id number] 20mg Take 1 [facility] 20 mg 5-23 tablet by ity of tablet 00:00: mouth [place] 00 daily. [facility] Branch citalopram 2021- No [id number] 20mg Take 1 [facility] 20 mg 5-23 08-24 tablet by ity of tablet 00:00: 00:00 mouth [place] 00 :00 daily. Medical Branch atorvastati Yes [id number] 80mg Take 1 [facility] n 80 mg 4-26 tablet by ity of tablet 00:00: mouth at [place] 00 bedtime. Medical Branch atorvastati Yes [id number] 80mg Take 1 [facility] n 80 mg 4-26 tablet by ity of tablet 00:00: mouth at [place] 00 bedtime. Medical Branch atorvastati Yes [id number] 80mg Take 1 [facility] n 80 mg 4-26 tablet by ity of tablet 00:00: mouth at [place] 00 bedtime. Medical Branch atorvasta Yes [id number] 80mg Take 1 [facility] n 80 mg 4-26 tablet by ity of tablet 00:00: mouth at [place] 00 bedtime. Medical Branch atorvastati 2021- No [id number] 80mg Take 1 [facility] n 80 mg 4-26 -27 tablet by ity of tablet 00:00: 00:00 mouth at [place] 00 :00 bedtime. Medical Branch atorvastati 2021- No [id number] 80mg Take 1 [facility] n 80 mg 4-26 -27 tablet by ity of tablet 00:00: 00:00 mouth at [place] 00 :00 bedtime. Medical Branch citalopram 2021- No 20mg Take 20 mg [facility] 20 mg 2-10 02-10 by mouth ity of tablet 15:06: 00:00 daily. [place] 38 :00 Medical Branch ARIPiprazol 2021- No 5mg Take 5 mg Univers e (ABILIFY) 2-10 02-10 by mouth ity of 5 mg tablet 15:06: 00:00 daily. [place] as 38 :00 Medical Branch aspirin 81 Yes 81mg Take 81 mg U nivers mg EC 2-10 by mouth ity of tablet 14:25: daily. 04 Medical Branch aspirin 81 0 Yes 81mg Take 81 mg U nivers mg EC 2-10 by mouth ity of tablet 14:25: daily. [place] [facility] aspirin 81 0 Yes 81mg Take 81 mg U nivers mg EC 2-10 by mouth ity of tablet 14:25: daily. [address] aspirin 81 Yes 81mg Take 81 mg U nivers mg EC 2-10 by mouth ity of tablet 14:25: daily. [address] aspirin 81 Yes 81mg Take 81 mg U nivers mg EC 2-10 by mouth ity of tablet 14:25: daily. [address] aspirin 81 Yes 81mg Take 81 mg U nivers mg EC 2-10 by mouth ity of tablet 14:25: daily. [address] citalopram 2021- No [id number] 20mg Take 1 [facility] 20 mg 2-10 05-12 tablet by ity of tablet 00:00: 04:59 mouth [place] 00 :00 daily for Medical 90 days. [place] ARIPiprazol 2021- No [id number] 5mg Take 1 Univers e (ABILIFY) 2-10 05-12 tablet by it y of 5 mg tablet 00:00: 04:59 mouth [place] 00 :00 daily for Medical 90 days. [place] citalopram 2021- No [id number] 20mg Take 1 [facility] 20 mg 2-10 05-12 tablet by ity of tablet 00:00: 04:59 mouth [place] 00 :00 daily for Medical 90 days. [place] ARIPiprazol 2021- No [id number] 5mg Take 1 Univers e (ABILIFY) 2-10 05-12 tablet by it y of 5 mg tablet 00:00: 04:59 mouth [place] 00 :00 daily for Medical 90 days. [place] citalopram 2021- No [id number] 20mg Take 1 [facility] 20 mg 2-10 05-12 tablet by ity of tablet 00:00: 04:59 mouth [place] 00 :00 daily for Medical 90 days. [place] ARIPiprazol 2021- No [id number] 5mg Take 1 [facility] e (ABILIFY) 2-10 05-12 tablet by it y of 5 mg tablet 00:00: 04:59 mouth [place] 00 :00 daily for Medical 90 days. [place] ATORVASTATI Yes [id number] TAKE 1 [facility] N 80 mg 1-20 TABLET BY ity of tablet 00:00: MOUTH [place] 00 EVERYDAY Medical AT BEDTIME Branch ATORVASTATI 2021-0 Yes [id number] TAKE 1 [facility] N 80 mg 1-20 TABLET BY ity of tablet 00:00: MOUTH [place] 00 EVERYDAY Medical AT BEDTIME Branch ATORVASTATI 2021-0 2021- No [id number] TAKE 1 [facility] N 80 mg 1-20 04-26 TABLET BY ity of tablet 00:00: 00:00 MOUTH [place] 00 :00 EVERYDAY Medical AT BEDTIME Branch TAMSULOSIN 2021-0 Yes [id number] TAKE 1 U nivers 0.4 mg 24 1-14 CAPSULE BY ity of hr capsule 00:00: MOUTH [place] 00 EVERY DAY Medical Branch TAMSULOSIN 2021-0 Yes [id number] TAKE 1 U nivers 0.4 mg 24 1-14 CAPSULE BY ity of hr capsule 00:00: MOUTH [place] 00 EVERY DAY Medical Branch TAMSULOSIN 2021-0 Yes [id number] TAKE 1 U nivers 0.4 mg 24 1-14 CAPSULE BY ity of hr capsule 00:00: MOUTH [place] 00 EVERY DAY Medical Branch TAMSULOSIN 2021-0 Yes [id number] TAKE 1 U nivers 0.4 mg 24 1-14 CAPSULE BY ity of hr capsule 00:00: MOUTH [place] 00 EVERY DAY Medical Branch TAMSULOSIN 2021-0 Yes [id number] TAKE 1 U nivers 0.4 mg 24 1-14 CAPSULE BY ity of hr capsule 00:00: MOUTH [place] 00 EVERY DAY Medical Branch TAMSULOSIN 2021-0 Yes [id number] TAKE 1 U nivers 0.4 mg 24 1-14 CAPSULE BY ity of hr capsule 00:00: MOUTH [place] 00 EVERY DAY Medical Branch TAMSULOSIN 2021-0 2021- No [id number] TAKE 1 [facility] 0.4 mg 24 1-14 -27 CAPSULE BY ity of hr capsule 00:00: 00:00 MOUTH [place] 00 :00 EVERY DAY Medical Branch TAMSULOSIN 2021-0 2021- No [id number] TAKE 1 [facility] 0.4 mg 24 1-14 -27 CAPSULE BY ity of hr capsule 00:00: 00:00 MOUTH [place] 00 :00 EVERY DAY Medical Branch GLIMEPIRIDE 2020-1 Yes [id number] TAKE 1 [facility] 1 mg tablet 1-23 TABLET BY ity of 00:00: MOUTH [place] 00 EVERY DAY Medical WITH Branch BREAKFAST GLIMEPIRIDE 2020-09 Yes [id number] TAKE 1 [facility] 1 mg tablet 1-23 TABLET BY ity of 00:00: MOUTH [place] 00 EVERY DAY Medical WITH Branch BREAKFAST GLIMEPIRIDE 2020-09 Yes [id number] TAKE 1 Univers 1 mg tablet 1-23 TABLET BY ity of 00:00: MOUTH [place] 00 EVERY DAY Medical WITH Branch BREAKFAST GLIMEPIRIDE 2020-09 Yes [id number] TAKE 1 Univers 1 mg tablet 1-23 TABLET BY ity of 00:00: MOUTH [place] 00 EVERY DAY Medical WITH Branch BREAKFAST GLIMEPIRIDE 2020-09 Yes [id number] TAKE 1 [facility] 1 mg tablet 1-23 TABLET BY ity of 00:00: MOUTH [place] 00 EVERY DAY Medical WITH Branch BREAKFAST GLIMEPIRIDE 2020-09 Yes [id number] TAKE 1 Univers 1 mg tablet 1-23 TABLET BY ity of 00:00: MOUTH [place] 00 EVERY DAY Medical WITH Branch BREAKFAST GLIMEPIRIDE 2020-09- No [id number] TAKE 1 Univers 1 mg tablet -18 06- TABLET BY it y of 00:00: 00:00 MOUTH [place] 00 :00 EVERY DAY Medical WITH Branch BREAKFAST GLIMEPIRIDE 2020-09- No [id number] TAKE 1 [facility] 1 mg tablet -18 06- TABLET BY it y of 00:00: 00:00 MOUTH [place] 00 :00 EVERY DAY Medical WITH Branch BREAKFAST ALLOPURINOL 2020-09 Yes TAKE 1 Univ ers 100 mg 0-21 TABLET BY ity of tablet 00:00: MOUTH [place] 00 EVERY DAY Medical Branch ALLOPURINOL 2020-09 Yes TAKE 1 Univ ers 100 mg 0-21 TABLET BY ity of tablet 00:00: MOUTH [place] 00 EVERY DAY Medical Branch ALLOPURINOL 2020-09 Yes TAKE 1 Univ ers 100 mg 0-21 TABLET BY ity of tablet 00:00: MOUTH [place] 00 EVERY DAY Medical Branch ALLOPURINOL 2020-09 Yes TAKE 1 Univ ers 100 mg 0-21 TABLET BY ity of tablet 00:00: MOUTH [place] 00 EVERY DAY Medical Branch ALLOPURINOL 2020-09 Yes TAKE 1 Univ ers 100 mg 0-21 TABLET BY ity of tablet 00:00: MOUTH [place] 00 EVERY DAY Medical Branch ALLOPURINOL 2020-09 Yes TAKE 1 Univ ers 100 mg 0-21 TABLET BY ity of tablet 00:00: MOUTH [place] 00 EVERY DAY Medical Branch ALLOPURINOL 2020-2021- No TAKE 1 Uni vers 100 mg 0-21 -27 TABLET BY ity of tablet 00:00: 00:00 [facility] 00 :00 EVERY DAY Medical Branch ALLOPURINOL 2020-2021- No TAKE 1 Uni vers 100 mg 0-21 -27 TABLET BY ity of tablet 00:00: 00:00 [facility] 00 :00 EVERY DAY Medical Branch famotidine 2020-0 Yes [id number] 20mg Take 1 [facility] 20 mg 9-23 tablet by ity of tablet 00:00: [address] (two) Medical times Branch daily. famotidine 2020-0 Yes [id number] 20mg Take 1 [facility] 20 mg 9-23 tablet by ity of tablet 00:00: [address] (two) Medical times Branch daily. famotidine 2020-0 Yes [id number] 20mg Take 1 [facility] 20 mg 9-23 tablet by ity of tablet 00:00: [address] (two) Medical times Branch daily. famotidine 2020-0 Yes [id number] 20mg Take 1 [facility] 20 mg 9-23 tablet by ity of tablet 00:00: [address] (two) Medical times Branch daily. famotidine 2020-0 Yes [id number] 20mg Take 1 [facility] 20 mg 9-23 tablet by ity of tablet 00:00: [address] (two) Medical times Branch daily. famotidine 2020-0 Yes [id number] 20mg Take 1 [facility] 20 mg 9-23 tablet by ity of tablet 00:00: [address] (two) Medical times Branch daily. famotidine 2020-0 2021- No [id number] 20mg Take 1 [facility] 20 mg 9-23 09-27 tablet by ity of tablet 00:00: 00:[address] 00 :00 (two) Medical times Branch daily. famotidine 2021-0 2- No [id number] 20mg Take 1 [facility] 20 mg 9-23 09-27 tablet by ity of tablet 00:00: 00:[address] 00 :00 (two) Medical times Branch daily. clopidogreL 2020-0 Yes [id number] 75mg Take 1 [facility] 75 mg 7-28 tablet by ity of tablet 00:00: [facility] 00 daily. Medical Branch clopidogreL 1-0 Yes [id number] 75mg Take 1 [facility] 75 mg 7-28 tablet by ity of tablet 00:00: mouth [place] 00 daily. Medical Branch clopidogreL 2020-0 Yes [id number] 75mg Take 1 [facility] 75 mg 7-28 tablet by ity of tablet 00:00: mouth [place] 00 daily. Medical Branch clopidogreL 1-0 Yes [id number] 75mg Take 1 [facility] 75 mg 7-28 tablet by ity of tablet 00:00: mouth [place] 00 daily. Medical Branch clopidogreL 2020-0 Yes [id number] 75mg Take 1 [facility] 75 mg 7-28 tablet by ity of tablet 00:00: mouth [place] 00 daily. Medical Branch clopidogreL 2020-0 Yes [id number] 75mg Take 1 [facility] 75 mg 7-28 tablet by ity of tablet 00:00: mouth [place] 00 daily. Medical Branch clopidogreL 1-0 2022- No [id number] 75mg Take 1 [facility] 75 mg 7-28 09-27 tablet by ity of tablet 00:00: 00:00 mouth [place] 00 :00 daily. Medical Branch clopidogreL 2020-0 2022- No [id number] 75mg Take 1 [facility] 75 mg 7-28 09-27 tablet by ity of tablet 00:00: 00:00 mouth [place] 00 :00 daily. Medical Branch amLODIPine 2020-0 Yes [id number] 10mg Take 1 U nivers 10 mg 7-07 tablet by ity of tablet 00:00: mouth [place] 00 daily. Medical Branch amLODIPine 2020-0 Yes [id number] 10mg Take 1 U nivers 10 mg 7-07 tablet by ity of tablet 00:00: mouth [place] 00 daily. Medical Branch amLODIPine 2020-0 Yes [id number] 10mg Take 1 U nivers 10 mg 7-07 tablet by ity of tablet 00:00: mouth [place] 00 daily. Medical Branch amLODIPine 2020-0 Yes [id number] 10mg Take 1 U nivers 10 mg 7-07 tablet by ity of tablet 00:00: mouth [place] 00 daily. Medical Branch amLODIPine 2020-0 Yes [id number] 10mg Take 1 U nivers 10 mg 7-07 tablet by ity of tablet 00:00: mouth [place] 00 daily. Medical Branch amLODIPine 2020-0 Yes [id number] 10mg Take 1 U nivers 10 mg 7-07 tablet by ity of tablet 00:00: mouth [place] 00 daily. Medical Branch amLODIPine 2021- No [id number] 10mg Take 1 [facility] 10 mg 04-01 tablet by ity of tablet 00:00: 00:00 mouth [place] 00 :00 daily. Medical Branch amLODIPine 0 2021- No [id number] 10mg Take 1 [facility] 10 mg 04-01 tablet by ity of tablet 00:00: 00:00 mouth [place] 00 :00 daily. Medical Branch [place] 2016-09 Yes Use as [facility] Device with 1-07 directed ity of [place] 00:00: for [place] (ONE TOUCH day blood Medi christelle DELICA) Kit glucose Branc h monitoring for ICD code of: E11.9 lancets 2016-09 Yes Use as Univers (ONETOUCH 1-07 directed ity of DELICA 00:00: for once a [place] LANCETS) 30 00 day blood Med ical gauge Misc glucose Branch monitoring for ICD code of: E11.9 Blood-Gluco 2016-09 Yes Use as Univ ers se Meter 1-07 directed ity of (ONETOUCH 00:00: for once a [place] VERIO day blood Medical SYSTEM) glucose Branch Misc monitoring for ICD code of: E11.9 blood sugar 2016-09 Yes Use as Univ ers diagnostic 1-07 directed ity o f (ONETOUCH 00:00: for once a [place]IO) day blood Medical strip glucose Branch monitoring for ICD code of: E11.9 [place] 2016-09 Yes Use as [facility] Device with 1-07 directed ity of [place] 00:00: for [place] a [place] (ONE TOUCH day blood Medi christelle DELICA) Kit glucose Branc h monitoring for ICD code of: E11.9 lancets 2016-09 Yes Use as Univers (ONETOUCH 1-07 directed ity of DELICA 00:00: for once a [place] LANCETS) 30 00 day blood Med ical gauge Misc glucose Branch monitoring for ICD code of: E11.9 Blood-Gluco 2016-09 Yes Use as Univ ers se Meter 1-07 directed ity of (ONETOUCH 00:00: for once a [place] day blood Medical SYSTEM) glucose Branch Misc monitoring for ICD code of: E11.9 blood sugar 2016-09 Yes Use as Univ ers diagnostic 1-07 directed ity o f (ONETOUCH 00:00: for once a [place]) 00 day blood Medical strip glucose Branch monitoring for ICD code of: E11.9 [place] 2016-09 Yes Use as [facility] Device with 1-07 directed ity of [place] 00:00: for [place] (ONE TOUCH 00 day blood Medi christelle DELICA) Kit glucose Branc h monitoring for ICD code of: E11.9 lancets 2016-09 Yes Use as Univers (ONETOUCH 1-07 directed ity of DELICA 00:00: for once a [place] LANCETS) 30 00 day blood Med ical gauge Misc glucose Branch monitoring for ICD code of: E11.9 Blood-Gluco 2016-09 Yes Use as Univ ers se Meter 1-07 directed ity of (ONETOUCH 00:00: for once a [place] 00 day blood Medical SYSTEM) glucose Branch Misc monitoring for ICD code of: E11.9 blood sugar 2016-09 Yes Use as Univ ers diagnostic 1-07 directed ity o f (ONETOUCH 00:00: for once a [place]) 00 day blood Medical strip glucose Branch monitoring for ICD code of: E11.9 [place] 2016-09 Yes Use as [facility] Device with 1-07 directed ity of [place] 00:00: for [place] (ONE TOUCH 00 day blood Medi christelle DELICA) Kit glucose Branc h monitoring for ICD code of: E11.9 lancets 2017 Yes Use as Univers (ONETOUCH 1-07 directed ity of DELICA 00:00: for once a [place] LANCETS) 30 00 day blood Med ical gauge Misc glucose Branch monitoring for ICD code of: E11.9 Blood-Gluco 2016-09 Yes Use as Univ ers se Meter 1-07 directed ity of (ONETOUCH 00:00: for once a [place] 00 day blood Medical SYSTEM) glucose Branch Misc monitoring for ICD code of: E11.9 blood sugar 2016-09 Yes Use as Univ ers diagnostic 1-07 directed ity o f (ONETOUCH 00:00: for once a [place]) 00 day blood Medical strip glucose Branch monitoring for ICD code of: E11.9 [place] 2016-09 Yes Use as [facility] Device with 1-07 directed ity of [place] 00:00: for [place] a [place] (ONE TOUCH 00 day blood Medi christelle DELICA) Kit glucose Branc h monitoring for ICD code of: E11.9 lancets 2017 Yes Use as Univers (ONETOUCH 1-07 directed ity of DELICA 00:00: for once a [place] LANCETS) 30 00 day blood Med ical gauge Misc glucose Branch monitoring for ICD code of: E11.9 Blood-Gluco 2016-09 Yes Use as Univ ers se Meter -07 directed ity of (ONETOUCH 00:00: for once a [place] 00 day blood Medical SYSTEM) glucose Branch Misc monitoring for ICD code of: E11.9 blood sugar 2016-09 Yes Use as Univ ers diagnostic - directed ity o f (ONETOUCH 00:00: for once a [place]) 00 day blood Medical strip glucose Branch monitoring for ICD code of: E11.9 [place] 2016-09 Yes Use as [facility] Device with - directed ity of Lancets 00:00: for [place] a [place] (ONE TOUCH 00 day blood Medi christelle DELICA) Kit glucose Branc h monitoring for ICD code of: E11.9 lancets 2017 Yes Use as Univers (ONETOUCH 107 directed ity of DELICA 00:00: for once a [place] LANCETS) 30 00 day blood Med ical gauge Misc glucose Branch monitoring for ICD code of: E11.9 Blood-Gluco 2016-09 Yes Use as Univ ers se Meter -07 directed ity of (ONETOUCH 00:00: for once a [place] 00 day blood Medical SYSTEM) glucose Branch Misc monitoring for ICD code of: E11.9 blood sugar 2016-09 Yes Use as Univ ers diagnostic 10-02 directed ity o f (ONETOUCH 00:00: for [place] 00 day blood Medical strip glucose Branch monitoring for ICD code of: E11.9 Blood-Gluco 2016-09- No Use as Uni vers se Meter 10-02 directed ity of (ONETOUCH 00:00: 00:00 [place] :00 day blood Medical SYSTEM) glucose Branch Misc monitoring for ICD code of: E11.9 blood sugar 2016-09- No Use as Uni vers diagnostic 10-02 directed ity of (ONETOUCH 00:00: 00:00 [place] 00 :00 day blood Medical strip glucose Branch monitoring for ICD code of: E11.9 Lancing 2016-09- No Use as Univers Device with 10-02 directed ity of Lancets 00:00: 00:00 for once a [place] as (ONE TOUCH 00 :00 day blood Medi christelle DELICA) Kit glucose Branc h monitoring for ICD code of: E11.9 lancets 2016-09- No Use as Univers (ONETOUCH 10-02 directed ity o f DELICA 00:00: [place]ANC[place] 30 00 :00 day blood Med ical gauge Misc glucose Branch monitoring for ICD code of: E11.9 Blood-Gluco 2016-09- No Use as Uni vers se Meter 10-02 directed ity of (ONETOUCH 00:00: 00:00 [place] 00 :00 day blood Medical SYSTEM) glucose Branch Misc monitoring for ICD code of: E11.9 blood sugar 2016-09- No Use as Uni vers diagnostic 10-02 directed ity of (ONETOUCH 00:00: 00:00 [place] 00 :00 day blood Medical strip glucose Branch monitoring for ICD code of: E11.9 [place] 2016-09- No Use as Univers Device with 10-02 directed ity of Lancets 00:00: 00:00 for once a [place] as (ONE TOUCH 00 :00 day blood Medi christelle DELICA) Kit glucose Branc h monitoring for ICD code of: E11.9 lancets 2016-09- No Use as Univers (ONETOUCH 10-02 directed ity o f DELICA 00:00: 00:00 [place] 30 00 :00 day blood Med ical gauge Misc glucose Branch monitoring for ICD code of: E11.9 Immunizations Ordered Filled Immunization Date Status Comments Sour e Immunization Name Name SARS-COV-2 COVID-19 2022-06-22 Completed Unive rsity of KEN-SUCROSE 00:00:00 [place] [facility] VACCINE [facility]+, Branch BIVALENT 0.3ML, IM, (PFIZER ANDERSON TOP BOOSTER) SARS-COV-2 COVID-19 2022-06-22 Completed Unive rsity of KEN-SUCROSE 00:00:00 [place] [facility] VACCINE 12 YRS+, Branch BIVALENT 0.3ML, IM, (PFIZER ANDERSON TOP BOOSTER) SARS-COV-2 COVID-19 2022-06-22 Completed Unive rsity of KEN-SUCROSE 00:00:00 [place] [facility]ACCINE 12 YRS+, Branch BIVALENT 0.3ML, IM, (PFIZER ANDERSON TOP BOOSTER) SARS-COV-2 COVID-19 2022-06-22 Completed Unive rsity of KEN-SUCROSE 00:00:00 [place] [facility]ACCINE 12 Y[facility]+, Branch BIVALENT 0.3ML, IM, (PFIZER ANDERSON TOP BOOSTER) SARS-COV-2 COVID-19 2022-06-22 Completed Unive rsity of KEN-SUCROSE 00:00:00 [place] [facility]ACCINE 12 YRS+, Branch BIVALENT 0.3ML, IM, (PFIZER ANDERSON TOP BOOSTER) SARS-COV-2 COVID-19 2022-06-22 Completed Unive rsity of KEN-SUCROSE 00:00:00 [place] [facility] VACCINE 12 YRS+, Branch BIVALENT 0.3ML, IM, (PFIZER ANDERSON TOP BOOSTER) SARS-COV-2 COVID-19 2022-06-22 Completed Unive rsity of KEN-SUCROSE 00:00:00 [place] [facility] VACCINE 12 YRS+, Branch BIVALENT 0.3ML, IM, (PFIZER ANDERSON TOP BOOSTER) SARS-COV-2 COVID-19 2022-06-22 Completed Unive rsity of KEN-SUCROSE 00:00:00 [place] [facility] VACCINE 12 YRS+, Branch BIVALENT 0.3ML, IM, (PFIZER ANDERSON TOP BOOSTER) SARS-COV-2 COVID-19 2022-06-22 Completed Unive rsity of KEN-SUCROSE 00:00:00 [place] [facility]ACCINE 12 YRS+, Branch BIVALENT 0.3ML, IM, (PFIZER ANDERSON TOP BOOSTER) SARS-COV-2 COVID-19 2022-06-22 Completed Unive rsity of KEN-SUCROSE 00:00:00 [place] [facility] VACCINE 12 YRS+, Branch BIVALENT 0.3ML, IM, (PFIZER ANDERSON TOP BOOSTER) SARS-COV-2 COVID-19 2022-06-22 Completed Unive rsity of KEN-SUCROSE 00:00:00 [place] [facility] VACCINE 12 YRS+, Branch BIVALENT 0.3ML, IM, (PFIZER ANDERSON TOP BOOSTER) SARS-COV-2 COVID-19 2022-06-22 Completed Unive rsity of KEN-SUCROSE 00:00:00 [place] [facility] VACCINE 12 YRS+, Branch BIVALENT 0.3ML, IM, (PFIZER ANDERSON TOP BOOSTER) SARS-COV-2 COVID-19 2022-06-22 Completed Unive rsity of KEN-SUCROSE 00:00:00 [place] [facility] VACCINE 12 YRS+, Branch BIVALENT 0.3ML, IM, (PFIZER ANDERSON TOP BOOSTER) SARS-COV-2 COVID-19 2022-06-22 Completed Unive rsity of KEN-SUCROSE 00:00:00 [place] [facility] VACCINE 12 YRS+, Branch BIVALENT 0.3ML, IM, (PFIZER ANDERSON TOP BOOSTER) SARS-COV-2 COVID-19 2022-06-22 Completed Unive rsity of KEN-SUCROSE 00:00:00 [place] [facility]ACCINE 12 YRS+, Branch BIVALENT 0.3ML, IM, (PFIZER ANDERSON TOP BOOSTER) SARS-COV-2 COVID-19 2022-06-22 Completed Unive rsity of KEN-SUCROSE 00:00:00 [place] [facility]ACCINE 12 YRS+, Branch BIVALENT 0.3ML, IM, (PFIZER ANDERSON TOP BOOSTER) SARS-COV-2 COVID-19 2022-06-22 Completed Unive rsity of KEN-SUCROSE 00:00:00 [place] [facility] VACCINE 12 YRS+, Branch BIVALENT 0.3ML, IM, (PFIZER ANDERSON TOP BOOSTER) SARS-COV-2 COVID-19 2022-06-22 Completed Unive rsity of KEN-SUCROSE 00:00:00 [place] [facility]ACCINE 12 YRS+, Branch BIVALENT 0.3ML, IM, (PFIZER ANDERSON TOP BOOSTER) SARS-COV-2 COVID-19 2022-06-22 Completed Unive rsity of KEN-SUCROSE 00:00:00 [place] [facility] VACCINE 12 YRS+, Branch BIVALENT 0.3ML, IM, (PFIZER ANDERSON TOP BOOSTER) SARS-COV-2 COVID-19 2022-06-22 Completed Unive rsity of KEN-SUCROSE 00:00:00 [place] [facility]ACCINE 12 YRS+, Branch BIVALENT 0.3ML, IM, (PFIZER ANDERSON TOP BOOSTER) SARS-COV-2 COVID-19 2022-06-22 Completed Unive rsity of KEN-SUCROSE 00:00:00 [place] [facility]ACCINE 12 YRS+, Branch BIVALENT 0.3ML, IM, (PFIZER ANDERSON TOP BOOSTER) SARS-COV-2 COVID-19 2022-06-22 Completed Unive rsity of KEN-SUCROSE 00:00:00 [place] [facility]ACCINE 12 YRS+, Branch BIVALENT 0.3ML, IM, (PFIZER ANDERSON TOP BOOSTER) SARS-COV-2 COVID-19 2022-06-22 Completed Unive rsity of KEN-SUCROSE 00:00:00 [place] [facility]ACCINE 12 YRS+, Branch BIVALENT 0.3ML, IM, (PFIZER ANDERSON TOP BOOSTER) SARS-COV-2 COVID-19 2022-06-22 Completed Unive rsity of KEN-SUCROSE 00:00:00 [place] [facility]ACCINE 12 YRS+, Branch BIVALENT 0.3ML, IM, (PFIZER ANDERSON TOP BOOSTER) SARS-COV-2 COVID-19 2022-06-22 Completed Unive rsity of KEN-SUCROSE 00:00:00 [place] [facility]ACCINE 12 YRS+, Branch BIVALENT 0.3ML, IM, (PFIZER ANDERSON TOP BOOSTER) SARS-COV-2 COVID-19 2022-06-22 Completed Unive rsity of KEN-SUCROSE 00:00:00 [place] [facility]ACCINE 12 YRS+, Branch BIVALENT 0.3ML, IM, (PFIZER ANDERSON TOP BOOSTER) SARS-COV-2 COVID-19 2022-06-22 Completed Unive rsity of KEN-SUCROSE 00:00:00 [place] [facility]ACCINE 12 YRS+, Branch BIVALENT 0.3ML, IM, (PFIZER ANDERSON TOP BOOSTER) SARS-COV-2 COVID-19 2022-06-22 Completed Unive rsity of KEN-SUCROSE 00:00:00 [place] [facility]ACCINE 12 YRS+, Branch BIVALENT 0.3ML, IM, (PFIZER ANDERSON TOP BOOSTER) SARS-COV-2 COVID-19 2022-06-22 Completed Unive rsity of KEN-SUCROSE 00:00:00 [place] [facility]ACCINE 12 YRS+, Branch BIVALENT 0.3ML, IM, (PFIZER ANDERSON TOP BOOSTER) SARS-COV-2 COVID-19 2022-06-22 Completed Unive rsity of KEN-SUCROSE 00:00:00 [place] [facility]ACCINE 12 YRS+, Branch BIVALENT 0.3ML, IM, (PFIZER ANDERSON TOP BOOSTER) SARS-COV-2 COVID-19 2022-06-22 Completed Unive rsity of KEN-SUCROSE 00:00:00 [place] [facility]INE 12 YRS+, Branch BIVALENT 0.3ML, IM, (PFIZER ANDERSON TOP BOOSTER) SARS-COV-2 COVID-19 2022-06-22 Completed Unive rsity of KEN-SUCROSE 00:00:00 [place] [facility]ACCINE 12 YRS+, Branch BIVALENT 0.3ML, IM, (PFIZER ANDERSON TOP BOOSTER) SARS-COV-2 COVID-19 2022-06-22 Completed Unive rsity of KEN-SUCROSE 00:00:00 [place] [facility]ACCINE 12 YRS+, Branch BIVALENT 0.3ML, IM, (PFIZER ANDERSON TOP BOOSTER) SARS-COV-2 COVID-19 2022-06-22 Completed Unive rsity of KEN-SUCROSE 00:00:00 [place] [facility]ACCINE 12 YRS+, Branch BIVALENT 0.3ML, IM, (PFIZER ANDERSON TOP BOOSTER) SARS-COV-2 COVID-19 2022-06-22 Completed Unive rsity of KEN-SUCROSE 00:00:00 [place] [facility]INE 12 YRS+, Branch BIVALENT 0.3ML, IM, (PFIZER ANDERSON TOP) SARS-COV-2 COVID-19 2022-06-22 Completed Unive rsity of KEN-SUCROSE 00:00:00 [place] [facility] VACCINE 12 YRS+, Branch BIVALENT 0.3ML, IM, (PFIZER ANDERSON TOP) SARS-COV-2 COVID-19 2022-06-22 Completed Unive rsity of KEN-SUCROSE 00:00:00 [place] [facility]INE [facility] YRS+, Branch BIVALENT 0.3ML, IM, (PFIZER ANDERSON TOP) SARS-COV-2 COVID-19 2021-01-10 Completed Unive rsity of PFIZER VACCINE 00:00:00 [facility] SARS-COV-2 COVID-19 2021-01-10 Completed Unive rsity of PFIZER VACCINE 00:00:00 [facility] SARS-COV-2 COVID-19 2021-01-10 Completed Unive rsity of PFIZER VACCINE 00:00:00 [facility] Branch SARS-COV-2 COVID-19 2021-01-10 Completed Unive rsity of PFIZER VACCINE 00:00:00 [place] [facility] SARS-COV-2 COVID-19 2021-01-10 Completed Unive rsity of PFIZER VACCINE 00:00:00 [facility] Branch SARS-COV-2 COVID-19 2021-01-10 Completed Unive rsity of PFIZER VACCINE 00:00:00 [facility] Branch SARS-COV-2 COVID-19 2021-01-10 Completed Unive rsity of PFIZER VACCINE 00:00:00 [facility] Branch SARS-COV-2 COVID-19 2021-01-10 Completed Unive rsity of PFIZER VACCINE 00:00:00 [facility] Branch SARS-COV-2 COVID-19 2021-01-10 Completed Unive rsity of PFIZER VACCINE 00:00:00 [facility] SARS-COV-2 COVID-19 2021-01-10 Completed Unive rsity of PFIZER VACCINE 00:00:00 [facility] SARS-COV-2 COVID-19 2021-01-10 Completed Unive rsity of PFIZER VACCINE 00:00:00 [facility] SARS-COV-2 COVID-19 2021-01-10 Completed Unive rsity of PFIZER VACCINE 00:00:00 [facility] Branch SARS-COV-2 COVID-19 2021-01-10 Completed Unive rsity of PFIZER VACCINE 00:00:00 [facility] Branch SARS-COV-2 COVID-19 2021-01-10 Completed Unive rsity of PFIZER VACCINE 00:00:00 [facility] Branch SARS-COV-2 COVID-19 2021-01-10 Completed Unive rsity of PFIZER VACCINE 00:00:00 [facility] Branch SARS-COV-2 COVID-19 2021-01-10 Completed Unive rsity of PFIZER VACCINE 00:00:00 [facility] Branch SARS-COV-2 COVID-19 2021-01-10 Completed Unive rsity of PFIZER VACCINE 00:00:00 [facility] SARS-COV-2 COVID-19 2021-01-10 Completed Unive rsity of PFIZER VACCINE 00:00:00 [facility] Branch SARS-COV-2 COVID-19 2021-01-10 Completed Unive rsity of PFIZER VACCINE 00:00:00 [facility] SARS-COV-2 COVID-19 2021-01-10 Completed Unive rsity of PFIZER VACCINE 00:00:00 [facility] Branch SARS-COV-2 COVID-19 2021-01-10 Completed Unive rsity of PFIZER VACCINE 00:00:00 [facility] Branch SARS-COV-2 COVID-19 2021-01-10 Completed Unive rsity of PFIZER VACCINE 00:00:00 [facility] SARS-COV-2 COVID-19 2021-01-10 Completed Unive rsity of PFIZER VACCINE 00:00:00 [facility] Branch SARS-COV-2 COVID-19 2021-01-10 Completed Unive rsity of PFIZER VACCINE 00:00:00 [facility] Branch SARS-COV-2 COVID-19 2021-01-10 Completed Unive rsity of PFIZER VACCINE 00:00:00 [facility] Branch SARS-COV-2 COVID-19 2021-01-10 Completed Unive rsity of PFIZER VACCINE 00:00:00 [facility] Branch SARS-COV-2 COVID-19 2021-01-10 Completed Unive rsity of PFIZER VACCINE 00:00:00 [facility] Branch SARS-COV-2 COVID-19 2021-01-10 Completed Unive rsity of PFIZER VACCINE 00:00:00 [facility] Branch SARS-COV-2 COVID-19 2021-01-10 Completed Unive rsity of PFIZER VACCINE 00:00:00 [facility] Branch SARS-COV-2 COVID-19 2021-01-10 Completed Unive rsity of PFIZER VACCINE 00:00:00 [facility] Branch SARS-COV-2 COVID-19 2021-01-10 Completed Unive rsity of PFIZER VACCINE 00:00:00 [facility] Branch SARS-COV-2 COVID-19 2021-01-10 Completed Unive rsity of PFIZER VACCINE 00:00:00 [facility] Branch SARS-COV-2 COVID-19 2021-01-10 Completed Unive rsity of PFIZER VACCINE 00:00:00 [facility] Branch SARS-COV-2 COVID-19 2021-01-10 Completed Unive rsity of PFIZER VACCINE 00:00:00 [facility] Branch SARS-COV-2 COVID-19 2021-01-10 Completed Unive rsity of PFIZER VACCINE 00:00:00 [facility] Branch SARS-COV-2 COVID-19 2021-01-10 Completed Unive rsity of PFIZER VACCINE 00:00:00 [facility] SARS-COV-2 COVID-19 2021-01-10 Completed Unive rsity of PFIZER VACCINE 00:00:00 [facility] SARS-COV-2 COVID-19 2021-01-10 Completed Unive rsity of PFIZER VACCINE 00:00:00 [facility] SARS-COV-2 COVID-19 2021-01-10 Completed Unive rsity of PFIZER VACCINE 00:00:00 [facility] SARS-COV-2 COVID-19 2021-01-10 Completed Unive rsity of PFIZER VACCINE 00:00:00 [facility] SARS-COV-2 COVID-19 2021-01-10 Completed Unive rsity of PFIZER VACCINE 00:00:00 [facility] SARS-COV-2 COVID-19 2021-01-10 Completed Unive rsity of PFIZER VACCINE 00:00:00 [facility] SARS-COV-2 COVID-19 2021-01-10 Completed Unive rsity of PFIZER VACCINE 00:00:00 [facility] SARS-COV-2 COVID-19 2020-12-20 Completed Unive rsity of PFIZER VACCINE 00:00:00 [facility] SARS-COV-2 COVID-19 2020-12-20 Completed Unive rsity of PFIZER VACCINE 00:00:00 [facility] SARS-COV-2 COVID-19 2020-12-20 Completed Unive rsity of PFIZER VACCINE 00:00:00 [facility] SARS-COV-2 COVID-19 2020-12-20 Completed Unive rsity of PFIZER VACCINE 00:00:00 [facility] SARS-COV-2 COVID-19 2020-12-20 Completed Unive rsity of PFIZER VACCINE 00:00:00 [facility] SARS-COV-2 COVID-19 2020-12-20 Completed Unive rsity of PFIZER VACCINE 00:00:00 [facility] SARS-COV-2 COVID-19 2020-12-20 Completed Unive rsity of PFIZER VACCINE 00:00:00 [facility] SARS-COV-2 COVID-19 2020-12-20 Completed Unive rsity of PFIZER VACCINE 00:00:00 [facility] SARS-COV-2 COVID-19 2020-12-20 Completed Unive rsity of PFIZER VACCINE 00:00:00 [facility] SARS-COV-2 COVID-19 2020-12-20 Completed Unive rsity of PFIZER VACCINE 00:00:00 [facility] SARS-COV-2 COVID-19 2020-12-20 Completed Unive rsity of PFIZER VACCINE 00:00:00 [facility] SARS-COV-2 COVID-19 2020-12-20 Completed Unive rsity of PFIZER VACCINE 00:00:00 [facility] SARS-COV-2 COVID-19 2020-12-20 Completed Unive rsity of PFIZER VACCINE 00:00:00 [facility] SARS-COV-2 COVID-19 2020-12-20 Completed Unive rsity of PFIZER VACCINE 00:00:00 [facility] SARS-COV-2 COVID-19 2020-12-20 Completed Unive rsity of PFIZER VACCINE 00:00:00 [facility] SARS-COV-2 COVID-19 2020-12-20 Completed Unive rsity of PFIZER VACCINE 00:00:00 [facility] SARS-COV-2 COVID-19 2020-12-20 Completed Unive rsity of PFIZER VACCINE 00:00:00 [facility] SARS-COV-2 COVID-19 2020-12-20 Completed Unive rsity of PFIZER VACCINE 00:00:00 [facility] SARS-COV-2 COVID-19 2020-12-20 Completed Unive rsity of PFIZER VACCINE 00:00:00 [facility] SARS-COV-2 COVID-19 2020-12-20 Completed Unive rsity of PFIZER VACCINE 00:00:00 [facility] SARS-COV-2 COVID-19 2020-12-20 Completed Unive rsity of PFIZER VACCINE 00:00:00 [facility] SARS-COV-2 COVID-19 2020-12-20 Completed Unive rsity of PFIZER VACCINE 00:00:00 [facility] SARS-COV-2 COVID-19 2020-12-20 Completed Unive rsity of PFIZER VACCINE 00:00:00 [facility] SARS-COV-2 COVID-19 2020-12-20 Completed Unive rsity of PFIZER VACCINE 00:00:00 [facility] SARS-COV-2 COVID-19 2020-12-20 Completed Unive rsity of PFIZER VACCINE 00:00:00 [facility] SARS-COV-2 COVID-19 2020-12-20 Completed Unive rsity of PFIZER VACCINE 00:00:00 [facility] SARS-COV-2 COVID-19 2020-12-20 Completed Unive rsity of PFIZER VACCINE 00:00:00 [facility] SARS-COV-2 COVID-19 2020-12-20 Completed Unive rsity of PFIZER VACCINE 00:00:00 [facility] SARS-COV-2 COVID-19 2020-12-20 Completed Unive rsity of PFIZER VACCINE 00:00:00 [facility] SARS-COV-2 COVID-19 2020-12-20 Completed Unive rsity of PFIZER VACCINE 00:00:00 [facility] SARS-COV-2 COVID-19 2020-12-20 Completed Unive rsity of PFIZER VACCINE 00:00:00 [facility] SARS-COV-2 COVID-19 2020-12-20 Completed Unive rsity of PFIZER VACCINE 00:00:00 [facility] SARS-COV-2 COVID-19 2020-12-20 Completed Unive rsity of PFIZER VACCINE 00:00:00 [facility] SARS-COV-2 COVID-19 2020-12-20 Completed Unive rsity of PFIZER VACCINE 00:00:00 [facility] SARS-COV-2 COVID-19 2020-12-20 Completed Unive rsity of PFIZER VACCINE 00:00:00 [facility] SARS-COV-2 COVID-19 2020-12-20 Completed Unive rsity of PFIZER VACCINE 00:00:00 [facility] SARS-COV-2 COVID-19 2020-12-20 Completed Unive rsity of PFIZER VACCINE 00:00:00 [facility] SARS-COV-2 COVID-19 2020-12-20 Completed Unive rsity of PFIZER VACCINE 00:00:00 [facility] SARS-COV-2 COVID-19 2020-12-20 Completed Unive rsity of PFIZER VACCINE 00:00:00 [facility] SARS-COV-2 COVID-19 2020-12-20 Completed Unive rsity of PFIZER VACCINE 00:00:00 [facility] SARS-COV-2 COVID-19 2020-12-20 Completed Unive rsity of PFIZER VACCINE 00:00:00 [facility] SARS-COV-2 COVID-19 2020-12-20 Completed Unive rsity of PFIZER VACCINE 00:00:00 [facility] SARS-COV-2 COVID-19 2020-12-20 Completed Unive rsity of PFIZER VACCINE 00:00:00 [facility] Influenza Virus 2020-06-15 Completed Universit y of Vaccine 00:00:00 [facility] Influenza Virus 2020-06-15 Completed Universit y of Vaccine 00:00:00 [facility] Influenza Virus 2020-06-15 Completed Universit y of Vaccine 00:00:00 [facility] Influenza Virus 2020-06-15 Completed Universit y of Vaccine 00:00:00 [facility] Influenza Virus 2020-06-15 Completed Universit y of Vaccine 00:00:00 [facility] Influenza Virus 2020-06-15 Completed Universit y of Vaccine 00:00:00 [facility] Influenza Virus 2020-06-15 Completed Universit y of Vaccine 00:00:00 [facility] Influenza Virus 2020-06-15 Completed Universit y of Vaccine 00:00:00 [facility] Influenza Virus 2020-06-15 Completed Universit y of Vaccine 00:00:00 [facility] Influenza Virus 2020-06-15 Completed Universit y of Vaccine 00:00:00 [facility] Influenza Virus 2020-06-15 Completed Universit y of Vaccine 00:00:00 [facility] Influenza Virus 2020-06-15 Completed Universit y of Vaccine 00:00:00 [facility] Influenza Virus 2020-06-15 Completed Universit y of Vaccine 00:00:00 [facility] Influenza Virus 2020-06-15 Completed Universit y of Vaccine 00:00:00 [facility] Influenza Virus 2020-06-15 Completed Universit y of Vaccine 00:00:00 [facility] Influenza Virus 2020-06-15 Completed Universit y of Vaccine 00:00:00 [facility] Influenza Virus 2020-06-15 Completed Universit y of Vaccine 00:00:00 [facility] Influenza Virus 2020-06-15 Completed Universit y of Vaccine 00:00:00 [facility] Influenza Virus 2020-06-15 Completed Universit y of Vaccine 00:00:00 [facility] Influenza Virus 2020-06-15 Completed Universit y of Vaccine 00:00:00 [facility] Influenza Virus 2020-06-15 Completed Universit y of Vaccine 00:00:00 [facility] Influenza Virus 2020-06-15 Completed Universit y of Vaccine 00:00:00 [facility] Influenza Virus 2020-06-15 Completed Universit y of Vaccine 00:00:00 [facility] Influenza Virus 2020-06-15 Completed Universit y of Vaccine 00:00:00 [facility] Influenza Virus 2020-06-15 Completed Universit y of Vaccine 00:00:00 [facility] Influenza Virus 2020-06-15 Completed Universit y of Vaccine 00:00:00 [facility] Influenza Virus 2020-06-15 Completed Universit y of Vaccine 00:00:00 [facility] Influenza Virus 2020-06-15 Completed Universit y of Vaccine 00:00:00 [facility] Influenza Virus 2020-06-15 Completed Universit y of Vaccine 00:00:00 [facility] Influenza Virus 2020-06-15 Completed Universit y of Vaccine 00:00:00 [facility] Influenza Virus 2020-06-15 Completed Universit y of Vaccine 00:00:00 [facility] Influenza Virus 2020-06-15 Completed Universit y of Vaccine 00:00:00 [facility] Influenza Virus 2020-06-15 Completed Universit y of Vaccine 00:00:00 [facility] Influenza Virus 2020-06-15 Completed Universit y of Vaccine 00:00:00 [facility] Influenza Virus 2020-06-15 Completed Universit y of Vaccine 00:00:00 [facility] Influenza Virus 2020-06-15 Completed Universit y of Vaccine 00:00:00 [facility] Influenza Virus 2020-06-15 Completed Universit y of Vaccine 00:00:00 [facility] Influenza Virus 2020-06-15 Completed Universit y of Vaccine 00:00:00 [facility] Influenza Virus 2020-06-15 Completed Universit y of Vaccine 00:00:00 [facility] Influenza Virus 2020-06-15 Completed Universit y of Vaccine 00:00:00 [facility] Influenza Virus 2020-06-15 Completed Universit y of Vaccine 00:00:00 [facility] Influenza Virus 2020-06-15 Completed Universit y of Vaccine 00:00:00 [facility] Influenza Virus 2020-06-15 Completed Universit y of Vaccine 00:00:00 [facility] TDAP 2018-05-30 Completed University of 00:00:00 [facility] TDAP 2018-05-30 Completed University of 00:00:00 [facility] TDAP 2018-05-30 Completed University of 00:00:00 [facility] TDAP 2018-05-30 Completed University of 00:00:00 [facility] TDAP 2018-05-30 Completed University of 00:00:00 [facility] TDAP 2018-05-30 Completed University of 00:00:00 [facility] TDAP 2018-05-30 Completed University of 00:00:00 [facility] TDAP 2018-05-30 Completed University of 00:00:00 [facility] TDAP 2018-05-30 Completed University of 00:00:00 [facility] TDAP 2018-05-30 Completed University of 00:00:00 [facility] TDAP 2018-05-30 Completed University of 00:00:00 [facility] TDAP 2018-05-30 Completed University of 00:00:00 [facility] TDAP 2018-05-30 Completed University of 00:00:00 [facility] TDAP 2018-05-30 Completed University of 00:00:00 [facility] TDAP 2018-05-30 Completed University of 00:00:00 [facility] TDAP 2018-05-30 Completed University of 00:00:00 [facility] TDAP 2018-05-30 Completed University of 00:00:00 [facility] TDAP 2018-05-30 Completed University of 00:00:00 [facility] TDAP 2018-05-30 Completed [facility] of 00:00:00 [facility] TDAP 2018-05-30 Completed University of 00:00:00 [facility] TDAP 2018-05-30 Completed University of 00:00:00 [facility] TDAP 2018-05-30 Completed University of 00:00:00 [facility] TDAP 2018-05-30 Completed University of 00:00:00 [facility] TDAP 2018-05-30 Completed University of 00:00:00 [facility] TDAP 2018-05-30 Completed University of 00:00:00 [facility] TDAP 2018-05-30 Completed University of 00:00:00 [facility] TDAP 2018-05-30 Completed University of 00:00:00 [facility] TDAP 2018-05-30 Completed University of 00:00:00 [facility] TDAP 2018-05-30 Completed University of 00:00:00 [facility] TDAP 2018-05-30 Completed University of 00:00:00 [facility] TDAP 2018-05-30 Completed University of 00:00:00 [facility] TDAP 2018-05-30 Completed University of 00:00:00 [facility] TDAP 2018-05-30 Completed University of 00:00:00 [facility] TDAP 2018-05-30 Completed University of 00:00:00 [facility] TDAP 2018-05-30 Completed University of 00:00:00 [facility] TDAP 2018-05-30 Completed University of 00:00:00 [facility] TDAP 2018-05-30 Completed University of 00:00:00 [facility] TDAP 2018-05-30 Completed University of 00:00:00 [facility] TDAP 2018-05-30 Completed University of 00:00:00 [facility] TDAP 2018-05-30 Completed University of 00:00:00 [facility] TDAP 2018-05-30 Completed University of 00:00:00 [facility] TDAP 2018-05-30 Completed University of 00:00:00 [facility] TDAP 2018-05-30 Completed University of 00:00:00 [facility] Vital Signs Vital Name Observation Time Observation Value Comments Source Systolic blood 2023-01-12 21:21:00 129 mm[Hg] Univer sity of pressure [facility] Diastolic blood 2023-01-12 21:21:00 79 mm[Hg] Unive rsity of pressure [facility] Heart rate 2023-01-12 21:21:00 125 /min [facility] Body temperature 2023-01-12 20:26:00 36.94 [place] [facility] Res[facility] rate 2023-01-12 20:26:00 16 /min [facility] Body height 2023-01-12 20:26:00 165.1 cm [facility] Body weight 2023-01-12 20:26:00 98.703 kg [facility] BMI 2023-01-12 20:26:00 36.21 kg/m2 [facility] Oxygen saturation in 2023-01-12 20:26:00 97 /min University of Arterial blood by [place] [facility] Systolic blood 2022-09-06 16:15:00 133 mm[Hg] Univer sity of pressure [facility] Diastolic blood 2022-09-06 16:15:00 80 mm[Hg] Unive rsity of pressure [facility] Heart rate 2022-09-06 16:15:00 79 /min [facility] Body temperature 2022-09-06 16:15:00 36.89 [place] Univ ersity of [facility] Respiratory rate 2022-09-06 16:15:00 17 /min Univ ersity of [facility] Body weight 2022-09-06 16:15:00 107.23 kg [facility] BMI 2022-09-06 16:15:00 39.34 kg/m2 [facility] Oxygen saturation in 2022-09-06 16:15:00 98 /min University [facility] Arterial blood by [place] [facility] Systolic blood 2022-09-03 17:00:00 138 mm[Hg] Univer sity of pressure [facility] Diastolic blood 2022-09-03 17:00:00 80 mm[Hg] Unive rsity of pressure [facility] Heart rate 2022-09-03 16:59:00 89 /min [facility] Body temperature 2022-09-03 16:59:00 36.78 [place] Univ ersity of [facility] Body height 2022-09-03 16:59:00 165.1 cm [facility] Body weight 2022-09-03 16:59:00 107.684 kg [facility] BMI 2022-09-03 16:59:00 39.51 kg/m2 [facility] Oxygen saturation in 2022-09-03 16:59:00 97 /min University of Arterial blood by [place] [facility] Systolic blood 2022-08-28 17:20:00 135 mm[Hg] Univer sity of pressure [facility] Diastolic blood 2022-08-28 17:20:00 94 mm[Hg] Unive rsity of pressure [facility] Heart rate 2022-08-28 17:20:00 83 /min [facility] Body temperature 2022-08-28 17:20:00 36 [place] Univ ersity of [facility] Respiratory rate 2022-08-28 17:20:00 18 /min Univ ersity of [facility] Oxygen saturation in 2022-08-28 17:20:00 96 /min University of Arterial blood by [facility] christelle Pulse oximetry Branch Body height 2022-08-27 07:30:00 165.1 cm [facility] Body weight 2022-08-27 07:30:00 108.364 kg [facility] BMI 2022-08-27 07:30:00 39.76 kg/m2 [facility] Systolic blood 2022-08-27 20:00:00 143 mm[Hg] Univer sity of pressure [facility] Diastolic blood 2022-08-27 20:00:00 80 mm[Hg] Unive rsity of pressure [facility] Respiratory rate 2022-08-27 20:00:00 23 /min Univ ersity of [facility] Oxygen saturation in 2022-08-27 20:00:00 91 /min University of Arterial blood by [facility] Pulse oximetry Branch Heart rate 2022-08-27 18:24:00 100 /min [facility] Body temperature 2022-08-27 14:00:00 36.28 [place] Univ ersity of [facility] Body height 2022-08-27 07:30:00 165.1 cm [facility] Body weight 2022-08-27 07:30:00 108.364 kg [facility] BMI 2022-08-27 07:30:00 39.76 kg/m2 [facility] Systolic blood 2022-08-26 22:15:00 182 mm[Hg] Univer sity of pressure [facility] Diastolic blood 2022-08-26 22:15:00 116 mm[Hg] Unive rsity of pressure [facility] Heart rate 2022-08-26 22:14:00 116 /min [facility] Body height 2022-08-26 22:14:00 165.1 cm [facility] Body weight 2022-08-26 22:14:00 109.907 kg [facility] BMI 2022-08-26 22:14:00 40.32 kg/m2 [facility] Oxygen saturation in 2022-08-26 22:14:00 98 /min [facility]ter[facility] blood by [place] [facility] Systolic blood 2022-07-27 15:31:00 146 mm[Hg] Univer sity of pressure [facility] Diastolic blood 2022-07-27 15:31:00 88 mm[Hg] Unive rsity of pressure [facility] Heart rate 2022-07-27 15:22:00 116 /min [facility] Body height 2022-07-27 15:22:00 165.1 cm [facility] Body weight 2022-07-27 15:22:00 109.181 kg [facility] BMI 2022-07-27 15:22:00 40.05 kg/m2 [facility] Oxygen saturation in 2022-07-27 15:22:00 96 /min [facility] Arterial blood by [place] [facility] Systolic blood 2022-06-22 16:03:00 133 mm[Hg] Univer sity of pressure [facility] Diastolic blood 2022-06-22 16:03:00 86 mm[Hg] Unive rsity of pressure [facility] Heart rate 2022-06-22 16:02:00 85 /min [facility] Body height 2022-06-22 16:02:00 165.1 cm [facility] Body weight 2022-06-22 16:02:00 105.28 kg [facility] BMI 2022-06-22 16:02:00 38.62 kg/m2 [facility] Oxygen saturation in 2022-06-22 16:02:00 97 /min University [facility] Arterial blood by [place] [facility]elle P[facility]xim[facility] Branch Systolic blood 2021-11-05 20:27:00 153 mm[Hg] Univer sity of pressure [facility] Diastolic blood 2021-11-05 20:27:00 81 mm[Hg] Unive rsity of pressure [facility] Heart rate 2021-11-05 20:26:00 102 /min [facility] Body height 2021-11-05 20:26:00 165.1 cm [facility] Body weight 2021-11-05 20:26:00 109.272 kg [facility] BMI 2021-11-05 20:26:00 40.09 kg/m2 [facility] Oxygen saturation in 2021-11-05 20:26:00 98 /min [facility] Arterial blood by [facility] Pulse oximetry Branch Procedures Procedure Date / Time Performing Clinician Source Performed [facility] PATIENT FINANCIAL 2023-01-12 20:15:01 Doctor Zackery, [facility] POLICY [facility] DISABILITY/FMLA 2022-11-01 06:01:00 Doctor Zackery, [facility] AUTHORIZATION TO RELEASE 2022-09-23 06:01:00 Doctor Zackery, [facility] PHI TO [facility] DISABILITY/FMLA 2022-09-07 06:01:00 Doctor Zackery, [facility] ACTIVATED PARTIAL THRMPLAS 2022-08-28 15:10:00 Yury Pagan [facility] ACTIVATED PARTIAL THRMPLAS 2022-08-28 15:10:00 Yury Pagan [facility] POCT GLUCOSE (AUTOMATED) 2022-08-28 13:52:00 Dinora Hamm [facility] POCT GLUCOSE (AUTOMATED) 2022-08-28 13:52:00 Dinora Hamm [facility] MAGNESIUM 2022-08-28 06:45:00 Payton Hanna o f [facility] BASIC METABOLIC PANEL (NA, 2022-08-28 06:45:00 Payton Hanna [facility] K, CL, CO2, GLUCOSE, BUN, Medica l Branch CREATININE, CA) ACTIVATED PARTIAL THRMPLAS 2022-08-28 06:45:00 Yury Pagan [facility] MAGNESIUM 2022-08-28 06:45:00 [facility] BASIC METABOLIC PANEL (NA, 2022-08-28 06:45:00 [facility] K, CL, CO2, GLUCOSE, BUN, Medica l Branch CREATININE, CA) ACTIVATED PARTIAL THRMPLAS 2022-08-28 06:45:00 [facility]SE ([facility]OMATED) 2022-08-28 02:33:00 [facility]UCOSE (AUTOMATED) 2022-08-28 02:33:00 Dinora Hamm [facility] POCT GLUCOSE (AUTOMATED) 2022-08-27 22:04:00 Dinora Hamm [facility] POCT GLUCOSE (AUTOMATED) 2022-08-27 22:04:00 Dinora Hamm [facility] TROPONIN I 2022-08-27 20:33:00 [facility] ACTIVATED PARTIAL THRMPLAS 2022-08-27 20:33:00 [facility] TROP[facility] 2022-08-27 20:33:00 [facility] ACTIVATED PARTIAL THRMPLAS 2022-08-27 20:33:00 [facility] PO[facility] GLUCOSE (AUTOMATED) 2022-08-27 20:15:00 Dinora Hamm [facility] POCT GLUCOSE (AUTOMATED) 2022-08-27 20:15:00 Dinora Hamm [facility] CARDIAC CATHETERIZATION 2022-08-27 19:03:44 Dinora Hamm [facility] CARDIAC CATHETERIZATION 2022-08-27 19:03:44 Dinora Hamm [facility] CARDIAC CATHETERIZATION 2022-08-27 19:03:44 Dinora Hamm [facility] CARDIAC CATHETERIZATION 2022-08-27 19:03:44 Dinora Hamm [facility] URINE DRUG (IMMUNOASSAY) - 2022-08-27 17:14:00 Payton Hanna [facility] [place] [facility] URINE DRUG (IMMUNOASSAY) - 2022-08-27 17:14:00 Payton Hanna [facility] [place] COMPRE[facility]ENSIVE [facility]EN [facility] POCT GLUCOSE (AUTOMATED) 2022-08-27 16:02:00 Yury Pagan versnick [facility] POCT GLUCOSE (AUTOMATED) 2022-08-27 16:02:00 [facility] TRANSTHORACIC ECHO (TTE) 2022-08-27 15:15:00 Payton Hanna [facility] W/ CONTRAST Medical [facility] TRANSTHORACIC ECHO (TTE) 2022-08-27 15:15:00 Payton Hanna [facility] W/ CONTRAST Medical [facility] TROPONIN I 2022-08-27 12:15:00 Jacques [facility] N-TERMINAL PRO-BNP 2022-08-27 12:15:00 [facility] TROPONIN I 2022-08-27 12:15:00 Jacques [facility] N-TERMINAL PRO-BNP 2022-08-27 12:15:00 [facility] THRMPLAS 2022-08-27 10:20:00 [facility] ACTIV[facility] PART[facility] THRMPLAS 2022-08-27 10:20:00 [facility] TROPONIN I 2022-08-27 07:22:00 Jacques [facility] TROPONIN I 2022-08-27 07:22:00 Jacques [facility] PROTHROMBIN TIME / INR 2022-08-27 03:47:00 [facility] ACTIVATED PARTIAL THRMPLAS 2022-08-27 03:47:00 Yury Pagan [facility] PROTHROMBIN TIME / INR 2022-08-27 03:47:00 Vasut, Yury J [facility] ACTIVATED PARTIAL THRMPLAS 2022-08-27 03:47:00 Yury Pagan [facility] HB ECG ROUTINE & RHYTHM 2022-08-27 03:40:31 Yury Pagan [facility] HB ECG ROUTINE & RHYTHM 2022-08-27 03:40:31 Yury Pagan [facility] TROPONIN I 2022-08-27 02:37:00 Yury Pagan [facility] TROPONIN I 2022-08-27 02:37:00 Yury Pagan [facility] XR CHEST 1 VW 2022-08-26 23:39:25 Yury Pagan [facility] XR CHEST 1 2022-08-26 23:39:25 Yury Pagan [facility] CK (CREATINE KINASE) + MB 2022-08-26 23:23:00 Yury Pagan [facility] TROPONIN I 2022-08-26 23:23:00 Yury Pagan [facility] COMP. METABOLIC PANEL 2022-08-26 23:23:00 Yury Pagan [facility] ([id number]) [facility] CBC WITH DIFF 2022-08-26 23:23:00 Yury Pagan [facility] GLYCOSYLATED HEMOGLOBIN 2022-08-26 23:23:00 Jacques [facility] CK (CREATINE KINASE) + MB 2022-08-26 23:23:00 Yury Pagna [facility] TROPONIN I 2022-08-26 23:23:00 Yury Pagan [facility] COMP. METABOLIC PANEL 2022-08-26 23:23:00 Yury Pagan [facility] ([id number]) [facility] CBC WITH DIFF 2022-08-26 23:23:00 Yury Pagan [facility] GLYCOSYLATED HEMOGLOBIN 2022-08-26 23:23:00 Jacques [facility] HB ECG ROUTINE & RHYTHM 2022-08-26 23:13:20 Yury Pagan [facility] HB ECG ROUTINE & RHYTHM 2022-08-26 23:13:20 Yury Pagan [facility] HOSPITAL ADMISSION 2022-08-26 06:01:00 Doctor Unassigned, Martha day [facility] Name [facility] DISABILITY/FMLA 2022-07-29 05:01:00 Doctor Unassigned, [facility] [place] [facility] SARS-COV-2 COVID-19 2022-06-22 16:14:29 Bernard Gallardo [facility] KEN-SUCROSE VACCINE [address] [place] [address] YRS+, BIVALENT 0.3ML, IM, (PFIZER ANDERSON TOP BOOSTER) Encounters Start End Encounter Admission Attending Care Care Encounter Source Date/Time Date/Time Type Type Clinicians Facility Department ID 2021-07-27 Emergency [facility] [id number] [facility] 2021-07-25 Emergency [facility] [id number] Univers [facility]:28[facility] 2023-02-04 2023-02-04 Outpatient ETHAN HOLLINGSWORTH [facility] [id number] Univers 09:00:00 09:00:00 ETHAN WEI [facility] 2023-01-28 2023-01-28 Outpatient Barbara CHEN [facility] [id number] Univers 16:15:00 16:15:00 , RAZIA it y [facility] 2023-01-28 2023-01-28 Outpatient ETHAN HOLLINGSWORTH [facility] [id number] Univers 08:40:00 08:40:00 ETHAN WEI [facility] 2023-01-21 2023-01-21 Telephone [facility] [id number] Univers 00:00:00 00:00:00 adjust 350.1.13.10 it y [facility] 4.2.7.2.686 Erick as LARRY?BLEA [id number] [address] MEDICAL OFFICE BUILDING 2023-01-14 2023-01-14 Letter Ronen, [facility] 1.2.840.114 [id number] Univers 00:00:00 00:00:00 (Out) General HEALTH 350.1.13.10 it y of Cardiology [place] 4.2.7.2.686 T sathya LOPEZ [id number] [facility] [address] [place] OFFICE BUILDING 2023-01-12 2023-01-12 C Programmer Lab, Ang - Db [facility] 1.2.840.1 [id number] Univers 16:15:00 16:30:00 Visit Sherwin Mario [facility] 350.1.13.10 ity of [place] 4.2.7.2.686 Erick as LARRY?BLEA [id number] [facility] [facility] [address] [place] MEDICAL OFFICE BUILDING 2023-01-12 2023-01-12 Outpatient R SHERWIN [facility] [id number] Univers 15:30:00 16:13:30 MARIO romero [facility] 2023-01-12 2023-01-12 Office [facility] 1.2.840.114 [id number] Univers 15:30:00 16:13:30 Visit [facility] 350.1.13.10 it y of [place] 4.2.7.2.686 Erick as LARRY?BLEA [id number] [facility] [facility] 044 [facility] OFFICE [facility] 2023-01-12 2023-01-12 Orders Doctor CEZAR 1.2.840.114 [id number] Univers 00:00:00 00:00:00 Only Unassigned, B[place] 350.1.13.10 ity [place] [facility] 4.2.7.2.686 Erick as [id number] [facility] [address] [place] 2023-01-12 2023-01-12 Telephone [facility] [id number] [id number] Univers 00:00:00 00:00:00 Lawrence [facility] 350.1.13.10 ity of [place].2.[place] [id number] [place] patti [facility] 059 [facility] 2022-12-20 2022-12-20 Outpatient R PAULINA [facility] [id number] Univers 09:30:00 09:30:00 BERNARD romero [facility] 2022-12-06 2022-12-06 Outpatient R ARNULFO, [facility] [id number] Univers 11:00:00 11:00:00 LAWRENCE cueva [facility] 2022-12-03 2022-12-03 Outpatient R DODD, [facility] [id number] Univers 14:00:00 14:00:00 VIDHI nick [facility] 2022-11-18 2022-11-18 Outpatient R BINH, [facility] [id number] Univers 09:45:00 09:45:00 GT christian [facility] 2022-11-01 2022-11-01 Orders Doctor CEZAR 1.2.840.114 [id number] Univers 00:00:00 00:00:00 Only Unassigned, BULL 350.1.13.10 ity [place] [facility] 4.2.7.2.686 Erick as [id number] [address] 2022-10-20 2022-10-20 Jhonny Jennifer[facility] 1.2.840.114 [id number] Univers 00:00:00 00:00:00 Radha A HEALTH 350.1.13.10 i ty of [place] 4.2.7.2.686 Erick as LARRY?BLEA [id number] [address] MEDICAL OFFICE BUILDING 2022-09-23 2022-09-23 Orders Doctor CEZAR 1.2.840.114 [id number] Univers 00:00:00 00:00:00 Only Unassigned, [place] 350.1.13.10 ity [place] [facility] 4.2.7.2.686 Erick as [id number] [address] 2022-09-15 2022-09-15 Outpatient R ARNULFO, [facility] [id number] Univers 15:00:00 15:00:00 LAWRENCE cueva [facility] 2022-09-07 2022-09-07 Letter [facility] 1.2.840.114 [id number] Univers 00:00:00 00:00:00 (Out) [facility] HEALTH 350.1.13.10 [place] of [place] [id number] [facility] [address] [place] OFFICE BUILDING 2022-09-07 2022-09-07 Telephone [facility] [id number] Univers 00:00:00 00:00:00 Lawrence DELANEY 350.1.13.10 ity of [facility] 4.2.7.2.[place] [id number] [facility] 059 [facility] 2022-09-07 2022-09-07 Orders Doctor CEZAR 1.2.840.114 [id number] Univers 00:00:00 00:00:00 Only Unassigned, BULL 350.1.13.10 ity of [facility] 4.2.7.2.686 Erick as [id number] [address] 2022-09-06 2022-09-06 [facility] [id number] Univers 10:20:00 10:34:28 LAWRENCE romero o f [facility] 2022-09-06 2022-09-06 Office [facility] 1.2.840.114 [id number] Univers 10:20:00 10:34:28 Visit Lawrence [facility] 350.1.13.10 ity of [place] [id number] [address] 2022-09-03 2022-09-03 Outpatient [facility] [id number] Univers 11:00:00 11:32:00 RADHA ity [facility] 2022-09-03 2022-09-03 Office [facility] 1.2.840.114 [id number] Univers 11:00:00 11:32:00 Visit Radha A [facility] 350.1.13.10 i ty of [facility] 4.2.7.2.686 Erick as LARRY?BLEA [id number] Tx patti SCANLON 044 [facility] OFFICE [facility] 2022-08-26 2022-08-28 Outpatient X DINORA HAMM [facility] 1 [id number] Univers 17:14:00 14:49:00 DINORA HAMM ity of [facility] 2022-08-26 2022-08-28 Emergency Yury Pagan 1.2.840.1 [id number] Univers 17:14:00 14:49:00 Scoutkaren Dinora BULL 350.1.13.10 ity of [facility] 4.2.7.2.686 Erick as [id number] [facility] [address] [place] 2022-08-27 2022-08-27 Surgery JeniseSONGIBETH 1.2.840.114 [id number] Univers 13:00:00 14:00:00 Jasen MCFARLAND 350.1.13.10 it y of [facility] 4.2.7.2.686 Erick as [id number] [facility] [address] [place] 2022-08-26 2022-08-26 Outpatient R PAULINA [facility] [id number] [facility] 16:00:00 16:59:11 BERNARD ity [facility] 2022-08-26 2022-08-26 Office [facility] 1.2.840.114 [id number] Univers 16:00:00 16:59:11 Visit Bernard [employer] 350.1.13.10 it y of [place] 4.2.7.2.686 Erick as LARRY?BLEA [id number] [address] OFFICE [facility] 2022-08-13 2022-08-13 Telephone [facility] [id number] Univers 00:00:00 00:00:00 Bernard HEALTH 350.1.13.10 it y of [place] 4.2.7.2.686 Erick as LARRY?BLEA [id number] [address] OFFICE [facility] 2022-08-09 2022-08-09 Telephone [facility] [id number] Univers 00:00:00 00:00:00 Bernard HEALTH 350.1.13.10 it y of [place] 4.2.7.2.686 Erick as LARRY?BLEA [id number] [address] OFFICE [facility] 2022-08-04 2022-08-04 Telephone [facility] [id number] Univers 00:00:00 00:00:00 Bernard HEALTH 350.1.13.10 it y of [place] 4.2.7.2.686 Erick as LARRY?BLEA [id number] [address] OFFICE [facility] 2022-07-29 2022-07-29 Orders Doctor CEZAR 1.2.840.114 [id number] Univers 00:00:00 00:00:00 Only Unassigned, BULL 350.1.13.10 it[facility] 4.2.7.2.686 Erick as [id number] [address] 2022-07-29 2022-07-29 Telephone [facility] [id number] Univers 00:00:00 00:00:00 Bernard HEALTH 350.1.13.10 it y of [place] 4.2.7.2.686 Erick as LARRY?BLEA [id number] [address] OFFICE [facility] 2022-07-27 2022-07-27 Outpatient [facility] [id number] Univers 10:00:00 12:13:56 BERNARD ity of [facility] 2022-07-27 2022-07-27 Office [facility] 1.2.840.114 [id number] Univers 10:00:00 12:13:56 Visit Bernard HEALTH 350.1.13.10 it y of [place] 4.2.7.2.686 Erick as LARRY?BLEA [id number] [address] OFFICE [facility] 2022-07-12 2022-07-12 Telephone [facility]ziFirst[facility] [facility] 1.2.975.895 [id number] 9530 Univers 00:00:00 00:00:00 Bernard HEALTH 350.1.13.10 it y of [place] 4.2.7.2.686 Erick as LARRY?BLEA [phone] [address] OFFICE [facility] 2022-06-23 2022-06-23 Telephone [facility] 1.2.324.330 [id number] Univers 00:00:00 00:00:00 Bernard HEALTH 350.1.13.10 it y of [place] 4.2.7.2.686 Erick as LARRY?BLEA [phone] Tx patti SCANLON 044 [facility] OFFICE BUILDING 2022-06-22 2022-06-22 Outpatient R PAULINA [facility] [id number] Univers 11:45:00 12:34:08 BERNARD ity of [facility] 2022-06-22 2022-06-22 C Programmer Lab, Ang - Db [facility] 1.2.840.1 14 [id number] Univers 11:45:00 12:00:00 Visit Bernard Gallardo HEALTH 350.1.13.10 ity of [place] 4.2.7.2.686 Erick as LARRY?BLEA [id number] [place]x patti SCANLON 353 [facility] OFFICE [facility] 2022-06-22 2022-06-22 Office [facility] 1.2.840.114 [id number] Univers 11:00:00 11:53:34 Visit Bernard HEALTH 350.1.13.10 it y of [place] 4.2.7.2.686 Erick as LARRY?BLEA [phone] [place]x patti SCANLON [address] [place] [address] MEDICAL OFFICE [facility] 2022-05-19 2022-05-19 Refill [facility] 1.2.840.114 [id number] Univers 00:00:00 00:00:00 Bernard HEALTH 350.1.13.10 it y of [place] 4.2.7.2.686 Erick as LARRY?BLEA [phone] T[place] patti RAVI[address] MEDICAL OFFICE [facility] 2022-02-18 2022-02-18 Telephone [facility] 1.2.640.569 [id number] Univers 00:00:00 00:00:00 Bernard HEALTH 350.1.13.10 it y of [place] 4.2.7.2.686 Erick as LARRY?BLEA [phone] [place] patti RAVI[address] MEDICAL OFFICE [facility] 2022-02-15 2022-02-15 Telephone [facility] 1.2.724.777 [id number] Univers 00:00:00 00:00:00 Bernard HEALTH 350.1.13.10 it y of [place] 4.2.7.2.686 Erick as LARRY?BLEA [phone] [facility] 0[address] [place] MEDICAL OFFICE [facility] 2022-01-19 2022-01-19 Refle Rodrgiuez [facility] 1.2.840.114 [id number] Univers 00:00:00 00:00:00 Radha A [facility] 350.1.13.10 i ty of [place] 4.2.7.2.686 Erick as LARRY?BLEA [id number] [address] MEDICAL OFFICE [facility] 2021-12-15 2021-12-15 Outpatient R RENZO [facility] [id number] Univers 15:30:00 15:30:00 STACEY ity [facility] 2021-12-15 2021-12-15 Outpatient R RENZO [facility] [id number] Univers 15:30:00 15:30:00 STACEY ity [facility] 2021-12-15 2021-12-15 Outpatient R RENZO [facility] [id number] Univers 15:30:00 15:30:00 STACEY ity [facility] 2021-12-11 2021-12-11 Outpatient R RENZO [facility] [id number] Univers 16:00:00 16:00:00 STACEY ity [facility] 2021-12-11 2021-12-11 [facility] [id number] Univers 16:00:00 16:00:00 STACEY ity [facility] 2021-12-04 2021-12-04 Telephone [facility] 1.2.840.114 [id number] Univers 00:00:00 00:00:00 Stacey MULTISPEC 350.1.13.10 ity of [facility] 4.2.7.2.686 [place] [phone] [facility] AND [address] DIABETES CLINIC 2021-11-05 2021-11-05 Outpatient R PAULINA [facility] [id number] Univers 14:00:00 15:22:45 BERNARD ity [facility] 2021-11-05 2021-11-05 Office [facility] 1.2.840.114 [id number] Univers 14:00:00 15:22:45 Visit Bernard HEALTH 350.1.13.10 it y of [place] 4.2.7.2.686 Erick as LARRY?BLEA [id number] [address] MEDICAL OFFICE BUILDING 2021-11-05 2021-11-05 Orders Doctor CEZAR 1.2.840.114 [id number] Univers 00:00:00 00:00:00 Only Unassigned, BULL 350.1.13.10 ity of [place] [facility] 4.2.7.2.686 Erick as [phone] [facility] [address] 2021-10-09 2021-10-09 Refill [facility] 1.2.524.058 [id number] [id number] Univers 00:00:00 00:00:00 Stacey MULTISPEC 350.1.13.10 ity of [place] 4.2.7.2.686 [place] [facility] [id number] [facility] AND [place] [address] [address] DIABETES CLINIC 2021-10-07 2021-10-07 Outpatient R ARNULFO [facility] [id number] Univers 15:40:00 15:40:00 QIANGJUN ity o f [facility] 2021-10-07 2021-10-07 Refill [facility] 1.2.840.114 [id number] Univers 00:00:00 00:00:00 Radha A HEALTH 350.1.13.10 i ty of [place] 4.2.7.2.686 Erick as PROFESSIO [phone] [address] OFFICE BUILDING ONE 2021-09-19 2021-09-19 Refill Jennifer [facility] 1.2.840.114 [id number] Univers 00:00:00 00:00:00 Radha A HEALTH 350.1.13.10 i ty of [place] 4.2.7.2.686 Erick as LARRY?BLEA [id number] [address] MEDICAL OFFICE BUILDING 2021-09-16 2021-09-16 Telephone [facility] 1.2.840.114 [id number] Univers 00:00:00 00:00:00 Stacey MULTISPEC 350.1.13.10 ity of [place]2.7.2.686 [place] C[place] [id number] [address] DIABETES CLINIC 2021-09-14 2021-09-14 C Programmer [facility] 1.2.840.114 [id number] Univers 12:30:00 12:45:00 Visit Stacey Muller 350.1.13.1 0 ity of [place].2.7.2.686 [place] C[place] [id number] [address] DIABETES CLINIC 2021-09-14 2021-09-14 Office [facility] 1.2.753.340 [id number] Univers 11:30:00 12:10:15 [facility] 350.1.13.10 ity of [place] 4.2.7.2.686 [place] CENTER [id number] [address] DIABETES CLINIC 2021-09-14 2021-09-14 Outpatient R RENZO [facility] [id number] Univers 11:30:00 12:10:15 STACEY ity [facility] 2021-09-14 2021-09-14 Outpatient R RENZO [facility] [id number] Univers 11:30:00 11:30:00 [facility] 2021-09-07 2021-09-07 Telephone [facility] 1.2.840.114 [id number] Univers 00:00:00 00:00:00 [facility] 350.1.13.10 ity of [place]2.7.2.686 [place] CENTER [id number] [address] DIABETES CLINIC 2021-08-09 2021-08-09 Jhonny Rodriguez [facility] 1.2.840.114 [id number] Univers 00:00:00 00:00:00 Radha A [facility] 350.1.13.10 i ty of [place] 4.2.7.2.686 Erick as LARRY?BLEA [phone] Tx patti [address] MEDICAL OFFICE BUILDING 2021-07-21 2021-07-21 Outpatient R MAGNOLIA [facility] [id number] Univers 09:00:00 09:00:00 TEJO ity of [facility] 2021-07-11 2021-07-11 Refill Renzo [facility] 1.2.873.362 [id number] Univers 00:00:00 00:00:00 Stacey SMITHPEC 350.1.13.10 ity of [place]2.7.2.686 [place] CENTER [id number] [address] DIABETES CLINIC 2021-07-01 2021-07-01 Telephone Declan Ibeth 1.2.139.743 [id number] Univers 00:00:00 00:00:00 Leonardo Munford 350.1.13.10 it y of [facility] 4.2.7.2.686 Erick as [id number] [address] 2021-06-28 2021-06-28 Refle Rodriguez [facility] 1.2.840.114 [id number] Univers 00:00:00 00:00:00 Radha A [facility] 350.1.13.10 i ty of [place] 4.2.7.2.686 Erick as Larry?Blea [phone] T[place] patti [address] Medical Office Building 2021-06-19 2021-06-19 Outpatient R RENZO [facility] [id number] Univers 00:00:00 00:00:00 STACEY ity [facility] 2021-06-15 2021-06-15 C Programmer [facility] 1.2.840.114 [id number] Univers 09:05:52 09:20:52 Visit Stacey Muller 350.1.13.1 0 it[place] of [place]2.7.2.686 [place] C[place] [phone] [address] DIABETES CLINIC 2021-06-15 2021-06-15 C Programmer [facility] 1.2.840.114 [id number] Univers 09:05:52 09:20:52 Visit Stacey Muller 350.1.13.1 0 [place] of [place]2.7.2.686 [place] C[place] [id number] [address] DIABETES CLINIC 2021-06-152021-06-15 Office [facility] 1.2.073.900 [id number] Univers 07:56:22 09:06:08 Visit Stacey SMITHPEC 350.1.13.10 ity of [place] 4.2[address] [facility] [place] [id number] [address] DIABETES CLINIC 2021-06-15 2021-06-15 Office [facility] 1.2.260.110 [id number] 9645 Univers 07:56:22 09:06:08 Visit Stacey SMITHPEC 350.1.13.10 ity of [place] 4.2[address] [facility] [place] [id number] [address] DIABETES CLINIC 2021-06-15 2021-06-15 [facility] [id number] Univers 08:30:00 08:30:00 STACEY ity [facility] 2021-06-15 2021-06-15 Orders Doctor CEZAR 1.2.840.114 [id number] Univers 00:00:00 00:00:00 Only Unassigned, BULL 350.1.13.10 ity of [place] HOSPITAL 4.2.7.2.686 Erick as [id number] [facility] [address] [place] 2021-06-15 2021-06-15 Orders Doctor ROBB 1.2.840.114 [id number] Univers 00:00:00 00:00:00 Only Unassigned, BULL 350.1.13.10 ity of [place] HOSPITAL 4.2.7.2.686 Erick as [id number] [facility] [address] [place] 2021-06-10 2021-06-10 Telephone Ibeth Manriquez 1.2.144.813 [id number] [id number] Univers 00:00:00 00:00:00 Leonardo Bull 350.1.13.10 it y of Hospital 4.2.7.2.686 Erick as [phone] [facility] [address] 2021-06-10 2021-06-10 Telephone Ibeth Manriquez 1.2.504.456 [id number] Univers 00:00:00 00:00:00 Leonardo Munford 350.1.13.10 it y of Hospital 4.2.7.2.686 Erick as [phone] [place] [address] [address] 2021-06-05 2021-06-05 Office [facility] 1.2.840.114 [id number] Univers 13:48:18 14:55:22 Visit Radha A [facility] 350.1.13.10 i ty of [place] 4.2.7.2.686 Erick as Larry?Blea [phone] Tx grzegorzmarilyn robert [address] [place] [address] Office Building 2021-06-05 2021-06-05 [facility] [id number] Univers 14:00:00 14:00:00 RADHA [facility] 2021-06-05 2021-06-05 [facility] [id number] Univers 09:30:00 09:30:00 RADHA romero [facility] 2021-06-05 2021-06-05 Refle [facility] 1.2.840.114 [id number] Univers 00:00:00 00:00:00 [facility] 350.1.13.10 it y of [place] 4.2.7.2.686 Erick as Professio [phone] [facility] artis [address] [place] [address] One 2021-06-05 2021-06-05 Jhonny [facility]cell[facility] 1.2.840.114 [id number] Univers 00:00:00 00:00:00 [facility] 350.1.13.10 it y of [place] 4.2.7.2.686 Erick as Professio [id number] [address] One 2021-06-03 2021-06-03 Telephone [facility] 1.2.840.114 [id number] Univers 00:00:00 00:00:00 Stacey MULTISPEC 350.1.13.10 ity of [facility] 4.2.7.2.686 [place] [id number] [facility] AND [address] DIABETES CLINIC 2021-06-03 2021-06-03 Telephone [facility] 1.2.840.114 [id number] Univers 00:00:00 00:00:00 Stacey MULTISPEC 350.1.13.10 ity of [place] 4[place]2.7.2.686 [place] [id number] [facility] AND [address] DIABETES CLINIC 2021-05-29 2021-05-29 Outpatient R MAGNOLIA [facility] [id number] Univers 09:00:00 09:00:00 TEJO ity [facility] 2021-05-25 2021-05-[address] [facility] 1.2.895.205 [id number] 0590 Univers 06:08:00 00:16:00 Fer [place] 350.1.13.10 i ty of [place] 4.2.7.2.686 [place] [phone] [address] 2021-05-25 2021-05-26 Emergency [facility] 1.2.487.301 [id number] 0590 Univers 06:08:00 00:16:00 Fer [place] 350.1.13.10 i ty of [place] 4.2.7.2.[address] [facility] [id number] [address] 2021-05-25 2021-05-25 Outpatient R RENZO [facility] [id number] Univers 16:00:00 16:00:00 STACEY ity [facility] 2021-05-25 2021-05-25 [facility] [id number] Univers 14:30:00 14:30:00 STACEY ity [facility] 2021-05-20 2021-05-20 Office [facility] 1.2.111.002 [id number] [id number] Univers 15:51:17 16:04:18 Visit Strahil T [place] 350.1.13.10 ity of [place] 4.2.7.2.686 [place] Profess[place] [id number] [address] 2021-05-20 2021-05-20 Office Corrie [facility] 1.2.099.588 [id number] Univers 15:51:17 16:04:18 Visit Strahil T [place] 350.1.13.10 ity of [place] 4.2.7.2.686 [place] Profess[place] [phone] [place] dical nal 085 [facility] 2021-05-20 2021-05-20 Outpatient R MACOAAMIRBRIANRKJASMINA [facility] [id number] Univers 16:00:00 16:00:00 ATANASOVRKHIL ity [facility] 2021-05-19 2021-05-19 Office [facility] 1.2.840.114 [id number] Univers 13:53:10 14:13:10 Visit Leonardo [place] 350.1.13.10 i ty of [place] 4.2.7.2.686 [place] Professio [phone] T[place] dicri nal 059 [facility] 2021-05-19 2021-05-19 Office [facility] 1.2.840.114 [id number] 42 Univers 13:53:10 14:13:10 Visit Leonardo [place] 350.1.13.10 i ty of [place] 4.2.7.2.686 [place] Professio [id number] [address] 2021-05-19 2021-05-19 [facility] [id number] Univers 14:00:00 14:00:00 LEONARDO itchristian [facility] 2021-05-08 2021-05-08 Outpatient R MACOAAMIRBRIANRKJASMINA [facility] [id number] Univers 19:30:00 19:30:00 CORRIE MILESAdelso itchristian [facility] 2021-05-08 2021-05-08 C Programmer 1, [facility] Sleep Lab Bed [facility] 1. 2.840.114 [id number] Univers 15:24:09 17:54:09 Visit Rodrigo Denton [place] 350.1.13. 10 ity of [place] 4.2.7.2.686 [place] [phone] [address] 2021-05-08 2021-05-08 C Programmer Posaundra, [facility] Lab Main [facility] 1.2.8 40.114 [id number] Univers 16:00:52 16:15:52 Visit Rodrigo Denton T [place] 350.1.13. 10 ity of [place] 4.2.7.2.686 [place] [facility] [phone] [place] dical nal [address] Building 2021-05-08 2021-05-08 Outpatient R RK DENTONUTAdelso [facility] [id number] Univers 16:00:00 16:00:00 RODRIGO DENTON ity [facility] 2021-05-07 2021-05-07 [facility] [id number] Univers 11:00:00 11:00:00 STACEY ity of [facility] 2021-05-07 2021-05-07 Telephone CEZAR Ivory 1.2.496.813 [id number] Univers 00:00:00 00:00:00 Kellie MCFARLAND 350.1.13.10 it y of [facility] 4.2.7.2.686 Erick as [phone] [facility] [address] 2021-05-06 2021-05-06 Laboratory Only, Adc Test [facility] 1.2.840. 114 [id number] Univers 15:32:58 15:47:58 Only Facundo Galvez 350.1.13.10 ity [facility] 4.2.7.2.686 [place] [phone] [facility] [address] 2021-05-06 2021-05-06 Outpatient R [facility] [id number] Univers 15:45:00 15:45:00 ity of [facility] 2021-05-06 2021-05-06 Orders Doctor ROBB 1.2.840.114 [id number] Univers 00:00:00 00:00:00 Only Unassigned, BULL 350.1.13.10 ity of [place] [facility] 4.2.7.2.686 Erick as [id number] [facility] [address] 2021 2021 Patient Renzo [facility] 1.2.823.687 [id number] Univers 00:00:00 00:00:00 Secure Msg Stacey SMITHPEC 350.1.13.10 ity of [facility] 4.2.7.2.686 [place] [id number] [facility] AND SRIVASTAVA [address] DIABETES CLINIC 2021-04-30 2021-04-30 Patient Renzo [facility] 1.2.840.343 [id number] Univers 00:00:00 00:00:00 Secure Msg Stacey SMITHPEC 350.1.13.10 ity of IAL[place] 4.2.7.2.686 [facility] s [place] [id number] [facility] AND [address] DIABETES CLINIC 2021-04-30 2021-04-30 Telephone Renzo [facility] 1.2.840.114 [id number] Univers 00:00:00 00:00:00 Stacey SMITHPEC 350.1.13.10 ity of IAL[place] 4.2.7.2.686 [facility] s [place] [id number] [facility] AND [address] DIABETES CLINIC 2021-04-23 2021-04-23 C Programmer Lab, [facility] Fam Pob I [facility] 1.2. 840.114 [id number] Univers 08:00:26 08:20:26 Visit Bernard Galladro 350.1.13.10 ity of [place] 4.2.7.2.[address] [facility] as Professio [phone] [place] dical nal 044 [place] Office Building One 2021-04-23 2021-04-23 Outpatient R [facility] [id number] Univers 08:00:00 08:00:00 ity of [facility] 2021-04-22 2021-04-22 Office [facility] 1.2.686.684 [id number] Univers 13:31:24 13:51:24 Visit Rodrigo Delaney 350.1.13.10 ity of [place] 4.2.7.2.686 [facility] [phone] [place] dical nal 085 [facility] 2021-04-22 2021-04-22 Outpatient R RODRIGO DENTON [facility] [id number] Univers 13:40:00 13:40:00 RODRIGO DENTON ity of [facility] 2021-04-22 2021-04-22 Office [facility] 1.2.840.114 [id number] Univers 11:24:42 12:02:05 Visit Radha Charles 350.1.13.10 i ty of [place] 4.2.7.2.686 Erick as Professio [id number] [address] One 2021-04-22 2021-04-22 Orders Doctor CEZAR 1.2.840.114 [id number] Univers 00:00:00 00:00:00 Only Unassigned, BULL 350.1.13.10 ity of [place] HOSPITAL 4.2.7.2.686 Erick as [id number] [facility] [address] [place] 2021-04-13 2021-04-13 Telephone [facility] 1.2.705.695 [id number] Univers 00:00:00 00:00:00 [facility] 350.1.13.10 it y of [place] 4.2.7.2.686 Erick as Professio [phone] [address] One 2021-04-08 2021-04-08 Outpatient R RODRIGO DENTON [facility] [id number] Univers 19:30:00 19:30:00 RODRIGO DENTON [facility] 2021-04-03 2021-04-03 Outpatient R RODRIGO DENTON [facility] [id number] Univers 19:30:00 19:30:00 RODRIGO DENTON [facility] 2021-04-03 2021-04-03 C Programmer 1, [facility] Sleep Lab Bed [facility] 1. 2.840.114 [id number] Univers 13:35:47 16:05:47 Visit Rodrigo [place] 350.1.13. 10 ity of [place] 4.2.7.2.686 [place] [facility] [id number] [facility] [address] 2021-04-02 2021-04-02 Orders Doctor CEZAR 1.2.840.114 [id number] Univers 00:00:00 00:00:00 Only Unassigned, BULL 350.1.13.10 ity of [place] HOSPITAL 4.2.7.2.686 Erick as [phone] [facility] [address] [place] 2021-04-01 2021-04-01 Office [facility], [facility] 1.2.840.114 [id number] Univers 09:53:54 10:23:16 Visit Lawrence [place] 350.1.13.10 ity of [place] 4.2.7.2.686 [place] Professio [phone] [place] dical nal 059 [facility] 2021-04-01 2021-04-01 Outpatient R ARNULFO [facility] [id number] Univers 10:00:00 10:00:00 TJLACIE francisy o f [facility] 2021-04-01 2021-04-01 Patient [facility] 1.2.840.114 [id number] Univers 00:00:00 00:00:00 Secure Msg Lawrence [place] 350.1.13.10 ity of [place] 4.2.7.2.686 [place] Profess[place] [id number] [facility] 059 [facility] 2021-03-31 2021-03-31 Refill Jennifer [facility] 1.2.840.114 [id number] Univers 00:00:00 00:00:00 [facility] 350.1.13.10 i ty of [place] 4.2.7.2.686 Erick as Professio [id number] [facility] [address] [place] Office Building One 2021-03-28 2021-03-28 Refill [facility] 1.2.717.558 [id number] [id number] Univers 00:00:00 00:00:00 Stacey SMITHPEC 350.1.13.10 ity of [place] 4.2.7.2.686 [place] CENTER [id number] [address] DIABETES CLINIC 2021-03-25 2021-03-25 Outpatient R RENZO [facility] [id number] Univers 09:30:00 09:30:00 STACEY romero [facility] 2021-03-23 2021-03-23 Outpatient R RENZO [facility] [id number] Univers 09:30:00 09:30:00 STACEY romero [facility] 2021-03-18 2021-03-18 Telephone [facility] 1.2.840.114 [id number] Univers 00:00:00 00:00:00 Stacey SMITHPEC 350.1.13.10 ity of [place] 4.2.7.2.686 [place] [id number] [facility] AND [place] [address] DIABETES CLINIC 2021-03-17 2021-03-17 Outpatient R DECLAN [facility] [id number] Univers 11:40:00 11:40:00 LEONARDO ity [facility] 2021-03-13 2021-03-13 Refle [facility] 1.2.840.114 [id number] Univers 00:00:00 00:00:00 [facility] 350.1.13.10 it y of [place] 4.2.7.2.686 Erick as Professio [phone] T[place] dic[address] Office Building One 2021-03-05 2021-03-05 Refle [facility] 1.2.840.114 [id number] Univers 00:00:00 00:00:00 [facility] 350.1.13.10 it y of [place] 4.2.7.2.686 Erick as Professio [phone] [address] Office Building One 2021-02-26 2021-02-26 Office Lila [facility] 1.2.062.675 [id number] [id number] Univers 14:47:32 15:32:32 Visit [facility] 350.1.13.10 it y of [place]2.7.2.686 [place] [phone] [facility] [address] Office Building 2021-02-26 2021-02-26 Outpatient R LILA [facility] [id number] Univers 15:00:00 15:00:00 ODALIS ity [facility] 2021-02-13 2021-02-13 [facility] 1.2.840. 114 [id number] Univers 08:06:38 23:59:00 Encounter Odalis [facility] 350.1.13.1 0 ity [place] [phone] [facility] [address] 2021-02-13 2021-02-13 Outpatient R LILA [facility] [id number] Univers 00:00:00 00:00:00 HASHEM ity of [facility] 2021-02-10 2021-02-10 Orders Doctor CEZAR 1.2.840.114 [id number] Univers 00:00:00 00:00:00 Only Unassigned, BULL 350.1.13.10 ity of [place] [facility] 4.2.7.2.686 Erick as [phone] [facility] [address] [place] 2021-02-10 2021-02-10 [facility] 1.2.840.114 [id number] Univers 00:00:00 00:00:00 [facility] 350.1.13.10 it y of [place] 4.2.7.2.686 Erick as Professio [phone] [address] Office [facility] One 2021-01-29 2021-01-29 [facility] 1.2.840.114 [id number] Univers 00:00:00 00:00:00 [facility] 350.1.13.10 it y of [place] 4.2.7.2.686 Erick as Professio [phone] [address] One 2021-01-23 2021-01-23 [facility] 1.2.840.114 [id number] Univers 00:00:00 00:00:00 [facility] 350.1.13.10 it y of [place] 4.2.7.2.686 Erick as Professio [id number] [address] One 2021-01-22 2021-01-22 Telephone Dwight [facility] 1.2.840.114 [id number] Univers 00:00:00 00:00:00 Rosaura R Y HEALTH 350.1.13.10 i ty [place] [id number] [facility] [address] 2021-01-21 2021-01-21 Letter Neurology [facility] 1.2.840.114 [id number] Univers 00:00:00 00:00:00 (Out) Y HEALTH 350.1.13.10 i ty [place] [id number] [facility] [address] 2021-01-21 2021-01-21 Telephone Dwight, [facility] 1.2.840.114 [id number] Univers 00:00:00 00:00:00 Rosaura R [facility] HE[facility] 350.1.13.10 i ty of [facility] 4[place] [id number] [facility] [address] 2021-01-20 2021-01-20 Telephone Renzo [facility] 1.2.840.114 [id number] Univers 00:00:00 00:00:00 Stacey MULTISPEC 350.1.13.10 ity [place] [id number] [facility] AND [address] [facility] 2021-01-17 2021-01-17 Refill Doctor [facility] 1.2.840.114 [id number] Univers 00:00:00 00:00:00 Unassigned, Health 350.1.13.10 ity of [place] 4.2.7.2.686 Erick as Professio [phone] [address] Office [facility] One 2021-01-17 2021-01-17 Refill Paulina [facility] 1.2.840.114 [id number] Univers 00:00:00 00:00:00 [facility] 350.1.13.10 it y of [place] 4.2.7.2.686 Erick as Professio [phone] T[place] dicri nal [address] [place] [address] Office Building One 2021-01-16 2021-01-16 Telephone Renzo [facility] 1.2.840.114 [id number] Univers 00:00:00 00:00:00 Stacey ELLIOTT 350.1.13.10 it[place] [phone] [address] [facility] 2021-01-15 2021-01-15 C Programmer Lin, Adc Lab Main [facility] 1.2.8 40.114 [id number] Univers 15:42:28 15:57:28 Visit Stacey Muller 350.1.13.10 ity of [place] [phone] [place] dical nal [address] Building 2021-01-15 2021-01-15 Outpatient R RENZO [facility] [id number] Univers 15:30:00 15:30:00 STACEY ity of [facility] 2021-01-15 2021-01-15 Orders Doctor CEZAR 1.2.840.114 [id number] Univers 00:00:00 00:00:00 Only Unassigned, BULL 350.1.13.10 ity of [facility] 4.2.7.2.686 Erick as [phone] [address] 2021-01-14 2021-01-14 Telephone Binh [facility] 1.2.747.415 [id number] Univers 00:00:00 00:00:00 [facility] 350.1.13.10 it y of [place] 4.2.7.2.686 [place]rick as Professio [phone] Tx dical [facility] [address] Office Building One 2021-01-08 2021-01-08 C Programmer Vtc-Lab [facility] 1.2.840.114 [id number] Univers 16:43:08 16:58:08 Visit Stacey Muller 350.1.13.1 0 it[place] [phone] [facility] [address] [facility] 2021-01-08 2021-01-08 Office Renzo [facility] 1.2.107.056 [id number] Univers 15:09:40 15:55:32 Visit Stacey ELLIOTT 350.1.13.10 it[place] [phone] [facility] [address] [facility] 2021-01-08 2021-01-08 Outpatient R RENZO [facility] [id number] Univers 15:30:00 15:30:00 STACEY ity [facility] 2020-12-31 2020-12-31 Telephone Renzo [facility] 1.2.840.114 [id number] Univers 00:00:00 00:00:00 Stacey ELLIOTT 350.1.13.10 [place] [phone] [address] [facility] 2020-12-30 2020-12-30 Outpatient R ARNULFO [facility] [id number] Univers 16:00:00 16:00:00 LAWRENCE blancochristian o hammad [facility] 2020-12-30 2020-12-30 Telephone Renzo [facility] 1.2.840.114 [id number] Univers 00:00:00 00:00:00 Stacey MULTISPEC 350.1.13.10 ity of [place] [phone] [address] DIABETES CLINIC 2020-12-29 2020-12-29 Office [facility] 1.2.840.114 [id number] Univers 15:29:39 16:24:44 Visit Lawrence Delaney 350.1.13.10 ity of [place] Profess [phone] Tx dical [facility] 2020-12-29 2020-12-29 Outpatient R ARNULFO [facility] [id number] Univers 15:40:00 15:40:00 LAWRENCE maria [facility] 2020-12-22 2020-12-22 [facility] [id number] Univers 16:00:00 16:00:00 STACEY ity of [facility] 2020-12-20 2020-12-20 Orders Doctor ROBB 1.2.840.114 [id number] Univers 00:00:00 00:00:00 Only Unassigned, BULL 350.1.13.10 ity of [place] [facility] 4.2.7.2.686 Erick as [phone] [place] [address] [address] 2020-12-15 2020-12-15 Telephone [facility] 1.2.840.114 [id number] Univers 00:00:00 00:00:00 Stacey SMITHPEC 350.1.13.10 [place] [phone] [address] [facility] 2020-12-09 2020-12-09 Patient Jake [facility] 1.2.840.114 [id number] Univers 00:00:00 00:00:00 Outreach Trevor RUDY 350.1.13.10 i ty of [place] ORDONEZ 4.2.7.2.686 [facility] [phone] Tx dical [address] 2020-12-09 2020-12-09 Telephone Renzo [facility] 1.2.840.114 [id number] Univers 00:00:00 00:00:00 Stacey ELLIOTT 350.1.13.10 ity of [place] 4.2.7.2.686 [facility] [phone] [facility] [address] DI[facility] 2020-11-24 2020-11-24 C Programmer 1, [facility] Lab [facility] 1.2.840.114 [id number] Univers 15:29:04 15:44:04 Visit Stacey Muller 350.1.13.10 ity of [place] 4.2.7.2.686 [facility] [phone] [facility] [address] 2020-11-24 2020-11-24 Outpatient R RENZO [facility] [id number] Univers 08:20:00 08:20:00 STACEY romero [facility] 2020-11-20 2020-11-20 C Programmer Ndc-Lab [facility] 1.2.840.114 [id number] Univers 16:04:06 16:19:06 Visit Stacey Muller 350.1.13.1 0 ity of [place] 4[address] [facility] [place] [phone] [facility] [address] [facility] 2020-11-20 2020-11-20 Office Renzo [facility] 1.2.483.007 [id number] Univers 14:58:18 16:05:05 Visit Stacey ELLIOTT 350.1.13.10 ity of [place] 4.[address] [facility] [place] [phone] [facility] [address] [facility] 2020-11-20 2020-11-20 Outpatient R RENZO [facility] [id number] Univers 15:30:00 15:30:00 STACEY itchristian [facility] 2020-11-14 2020-11-14 Telephone [facility] 1.2.840.114 [id number] Univers 00:00:00 00:00:00 Stacey MULTISPEC 350.1.13.10 ity of [place] 4.2.7.2.686 [place] [facility] [phone] [facility] AND [address] DIABETES CLINIC 2020-10-31 2020-10-31 Office [facility] 1.2.840.114 [id number] Univers 15:40:58 16:55:28 Visit Radha Charles 350.1.13.10 i ty of [place] 4.2.7.2.686 Erick as Professio [phone] Tx dical nal 044 [facility] One 2020-10-31 2020-10-31 [facility] [id number] Univers 16:00:00 16:00:00 RADHA christian [facility] 2020-10-30 2020-10-30 C Programmer Lab, Adc Fam Pob I [facility] 1.2. 840.114 [id number] Univers 16:01:12 16:09:12 Visit Bernard Gallardo 350.1.13.10 ity of [place] 4.2.7.2.686 [place]rick as Professio [phone] T[place] dicri nal [address] [place] [address] One 2020-10-30 2020-10-30 Outpatient R PAULINA [facility] [id number] Univers 16:00:00 16:00:00 [facility] 2020-10-30 2020-10-30 Outpatient R KIERA [facility] [id number] Univers 15:00:00 15:00:00 ABHISHEK christian [facility] 2020-10-30 2020-10-30 Outpatient R SYEDA [facility] [id number] Univers 14:00:00 14:00:00 JAY [facility] 2020-10-29 2020-10-29 C Programmer Lab, Adc Fam Pob I [facility] 1.2. 840.114 [id number] Univers 15:30:52 15:50:52 Visit Radha [facility] 350.1.13.10 ity of [place] 4.2.7.2.686 Erick as Professio [phone] [place] dical nal [address] Office [facility] One 2020-10-29 2020-10-29 Outpatient R JENNIFER [facility] [id number] Univers 15:40:00 15:40:00 RADHA roemro [facility] 2020-10-28 2020-10-28 Office Lila [facility] 1.2.941.316 [id number] Univers 15:42:36 16:12:36 Visit Odalis [facility] 350.1.13.10 it y of [place] [phone] [facility] [address] Office Building 2020-10-28 2020-10-28 Outpatient R LILA [facility] [id number] Univers 15:45:00 15:45:00 ERICAPAOLA romero [facility] 2020-10-24 2020-10-24 Outpatient R ETHAN WEI [facility] [id number] Univers 08:00:00 08:00:00 ETHAN WEI christian [facility] 2020-10-23 2020-10-23 Outpatient R JENNIFER [facility] [id number] Univers 08:00:00 08:00:00 RADHA romero [facility] 2020-10-22 2020-10-22 Telephone Nathaniel [facility] 1.2.840.114 [id number] Univers 00:00:00 00:00:00 Michael [facility] 350.1.13.10 it y of [place] 4.2.7.2.686 Erick as Professio [phone] [place] dical nal [address] [place] Office [facility] One 2020-10-20 2020-10-20 Transition Elle Castellon 1.2.840.114 [id number] Univers 00:00:00 00:00:00 of Care Melisa Morales 350.1.13.10 ity of [place].2.[place] [phone] [place] [address] [address] 2020-10-162020-10-17 [facility] Fer Macedo 1.2.840.1 14 [id number] Univers 07:17:00 15:21:00 Encounter Abhishek Qureshi 350.1.13.10 ity of [facility] 4.2.7.2.686 Erick as [phone] [facility] [address] 2020-10-17 2020-10-17 Outpatient R ETHAN WEI [facility] [id number] Univers 15:00:00 15:00:00 [facility] 2020-10-17 2020-10-17 Refill [facility] 1.2.840.114 [id number] Univers 00:00:00 00:00:00 Tereso Health 350.1.13.10 it y of [place].2.686 [place] akanksha [place] [phone] [facility] [address] Office Building 2020-10-16 2020-10-16 Telephone [facility] 1.2.327.512 [id number] Univers 00:00:00 00:00:00 Radha A Health 350.1.13.10 i ty of [place] 4.2.7.2.686 Erick as Professio [phone] [place] dical nal [address] [place] Office Building One 2020-10-14 2020-10-14 Telephone [facility] 1.2.224.675 [id number] Univers 00:00:00 00:00:00 Gt Health 350.1.13.10 it y of [place] 4.2.7.2.686 Erick as Professio [phone] [place] dical nal [address] Office Building One 2020-10-11 2020-10-11 Refill [facility] 1.2.840.114 [id number] Univers 00:00:00 00:00:00 Gt Health 350.1.13.10 it y of [place] 4.2.7.2.686 Erick as Professio [phone] [place] dical nal [address] Office Building One 2020-10-02 2020-10-02 Office [facility] 1.2.840.114 [id number] Univers 16:02:36 17:59:52 Visit Bernard [facility] 350.1.13.10 it y of [place] 4.2.7.2.686 Erick as Professio [phone] [address] One 2020-10-02 2020-10-02 Outpatient Barbara GALLARDO [facility] [id number] Univers 16:30:00 16:30:00 BERNARD romero [facility] 2020-10-01 2020-10-01 Orders Doctor CEZAR 1.2.840.114 [id number] Univers 00:00:00 00:00:00 Only Unassigned, BULL 350.1.13.10 ity of [place] [facility] 4.2.7.2.686 Erick as [phone] [address] 2020-10-01 2020-10-01 [facility] 1.2.170.076 [id number] Univers 00:00:00 00:00:00 Radha A Health 350.1.13.10 i ty of [place] 4.2.7.2.686 Erick as Professio [phone] [address] 2020-09-25 2020-09-25 Outpatient Barbara GALLARDO [facility] [id number] Univers 09:00:00 09:00:00 BERNARD romero [facility] 2020-09-25 2020-09-25 Telephone [facility] 1.2.844.066 [id number] Univers 00:00:00 00:00:00 Radha A Health 350.1.13.10 i ty of [place] 4.2.7.2.686 Erick as Professio [phone] [address] 2020-09-19 2020-09-19 Jhonny Purcell [facility] 1.2.840.114 [id number] Univers 00:00:00 00:00:00 Gt Health 350.1.13.10 it y of [place] 4.2.7.2.686 Erick as Professio [phone] [address] 2020-09-19 2020-09-19 Jhonny Purcell [facility] 1.2.840.114 [id number] Univers 00:00:00 00:00:00 [facility] 350.1.13.10 it y of [place] 4.2.7.2.686 Erick as Professio [phone] [facility] 044 [facility] One 2020-09-16 2020-09-16 Telephone [facility] 1.2840.114 [id number] Univers 00:00:00 00:00:00 Vivienne [place] 350.1.13.10 i ty of [place] [phone] [facility] 188 [facility] 2020-09-11 2020-09-11 Emergency X [facility] ERT [id number] Univers 15:06:00 17:24:00 SHAHNAZ romero [facility] 2020-09-11 2020-09-11 Emergency [facility] 1.2.616.812 [id number] Univers 15:06:00 17:24:00 Shahnaz Delaney 350.1.13.10 i ty of [place].2.686 [place] [phone] [facility] [address] [place] 2020-09-11 2020-09-11 Office [facility] 1.2840.114 [id number] Univers 13:40:50 14:10:50 Visit [facility] 350.1.13.10 it y of [place] 4.2.7.2.686 Erick as Professio [phone] [facility] 044 [facility] 2020-09-11 2020-09-11 [facility] [id number] Univers 14:00:00 14:00:00 BERNARD blancochristian [facility] 2020-09-11 2020-09-11 Orders Doctor ROBB 1.2.840.114 [id number] Univers 00:00:00 00:00:00 Only Unassigned, BULL 350.1.13.10 ity of [place] [facility] 4.2.7.2.686 Erick as [phone] [facility] [address] [place] 2020-08-25 2020-08-25 Jhonny [facility] 1.2.840.114 [id number] Univers 00:00:00 00:00:00 [facility]t [facility] 350.1.13.10 it y of [place] 4.2.7.2.686 Erick as Professio [phone] [address] Office [facility] One 2020-08-22 2020-08-22 Refle [facility] 1.2.840.114 [id number] Univers 00:00:00 00:00:00 [facility]t [facility] 350.1.13.10 it y of [place] 4.2.7.2.686 Erick as Professio [phone] [address] Office [facility] One 2020-03-20 2020-03-20 Outpatient [facility] [id number] Univers 00:00:00 00:00:00 DEDRICK romero [facility] 2020-02-09 2020-02-09 Refle [facility] 1.2.840.114 [id number] Univers 00:00:00 00:00:00 Gt Health 350.1.13.10 it y of [place] 4.2.7.2.686 Erick as Professio [phone] [address] Office [facility] One 2019-12-18 2019-12-18 Refle [facility] 1.2.840.114 [id number] Univers 00:00:00 00:00:00 Verena Health 350.1.13.10 i ty of [place] 4.2.7.2.686 Erick as Professio [phone] [address] Office [facility] One 2019-12-14 2019-12-14 Refill [facility] 1.2.840.114 [id number] Univers 00:00:00 00:00:00 Gt Health 350.1.13.10 it y of [place] 4.2.7.2.686 Erick as Professio [phone] [address] Office [facility] One 2019-04-23 2019-04-26 Office [facility] 1.2.840.114 [id number] Univers 12:26:50 13:15:04 Visit Gt Health 350.1.13.10 it y of [place] 4.2.7.2.686 Erick as Professio [phone] Tx dical nal [address] [place] Office Building One 2019-04-24 2019-04-25 C Programmer Lab, Christelle Ceballos I [facility] 1.2. 840.114 [id number] Univers 09:10:55 10:11:54 Visit Jennifer Radha Herrera [facility] 350.1.13.10 ity of [place] 4.2.7.2.686 Erick as Professio [phone] Tx dical nal [address] [place] Office Building One 2019-04-23 2019-04-23 Orders Doctor CEZAR 1.2.840.114 [id number] Univers 00:00:00 00:00:00 Only Unassigned, BULL 350.1.13.10 ity of [place] [facility] 4.2.7.2.686 Erick as [phone] [address] Results Test Description Test Time Test Comments Results Result Comments Source aPTT (for use with Heparin Infusion) 2022-08-28 15:39:40 Test Item Value Reference Range Interpretation Comme nts APTT Patient (test code = See_Comment H [ Automated message] The system 3173-2) which generated this result transmitted ref erence range: 26 - 36 Seconds. T he reference range was not u sed to interpret this result as normal/abnormal. Lab Interpretation (test code Abnormal = 21623-2) [facility]2022-08-28 15:39:40 Test Item Value Reference Range Interpretation Comments APTT Patient (test code See_Comment H [Au tomated message] = 3173-2) The system [employer] h generated this result transmitted ref erence range: 26 - 36 Seconds. The reference range was not used to int erpret this result as normal/abnormal . Lab Interpretation (test Abnormal code = 06031-9) [facility] GLUCOSE (AUTOMATED)2022-08-28 13:53:49 Test Item Value Reference Range Interpretation Comments POCT GLU (test code = 7473122288) 187 mg/dL 70-110 H Lab Interpretation (test code = Abnormal 70291-2) [facility] GLUCOSE (AUTOMATED)2022-08-28 13:53:49 Test Item Value Reference Range Interpretation Comments POCT GLU (test code = 9445675953) 187 mg/dL 70-110 H Lab Interpretation (test code = Abnormal 40809-5) [facility] GLUCOSE (AUTOMATED)2022-08-28 02:59:23 Test Item Value Reference Range Interpretation Comments POCT GLU (test code = 0448614048) 175 mg/dL 70-110 H Lab Interpretation (test code = Abnormal 65367-0) [facility] GLUCOSE (AUTOMATED)2022-08-28 02:59:23 Test Item Value Reference Range Interpretation Comments POCT GLU (test code = 2099873319) 175 mg/dL 70-110 H Lab Interpretation (test code = Abnormal 45865-4) [facility] GLUCOSE (AUTOMATED)2022-08-27 22:09:50 Test Item Value Reference Range Interpretation Comments POCT GLU (test code = 2811502580) 262 mg/dL 70-110 H Lab Interpretation (test code = Abnormal 91902-4) [facility] GLUCOSE (AUTOMATED)2022-08-27 22:09:50 Test Item Value Reference Range Interpretation Comments POCT GLU (test code = 3023207985) 262 mg/dL 70-110 H Lab Interpretation (test code = Abnormal 07238-7) [facility] [id number] 21:06:07 Test Item Value Reference Interpretation Comments Range TROPONIN I (test 0.097 ng/mL See_Comment H [Automated code = 8331609412) message] The system which generated this result transmitted reference range : <=0.034. The reference range was not used to interpret this result as normal/abnormal . TRINI (test code = Reference (Normal) TRINI) Range (defined by the 99th percentile reference limit): <= 0.034 ng/mL Note: Cardiac troponin begins to rise 3-4 hours after the onset of ischemia. Repeat in 4-6 hours if the sample was drawn within 3-4 hours of the onset of the symptom and found normal. Diagnosis of myocardial injury is made with acute changes in cTn concentrations with at least one serial sample above the 99th percentile upper reference limit (URL), taken together with the patient's clinical presentation. Biotin has been reported to cause a negative bias, interpret results relative to patient's use of biotin. Lab Interpretation Abnormal (test code = 23660-4) [facility] [id number] 21:06:07 Test Item Value Reference Interpretation Comments Range TROPONIN I (test 0.097 ng/mL See_Comment H [Automated code = 7259724848) message] The system which generated this result transmitted reference range : <=0.034. The reference range was not used to interpret this result as normal/abnormal . TRINI (test code = Reference (Normal) TRINI) Range (defined by the 99th percentile reference limit): <= 0.034 ng/mL Note: Cardiac troponin begins to rise 3-4 hours after the onset of ischemia. Repeat in 4-6 hours if the sample was drawn within 3-4 hours of the onset of the symptom and found normal. Diagnosis of myocardial injury is made with acute changes in cTn concentrations with at least one serial sample above the 99th percentile upper reference limit (URL), taken together with the patient's clinical presentation. Biotin has been reported to cause a negative bias, interpret results relative to patient's use of biotin. Lab Interpretation Abnormal (test code = 16723-0) [facility] use with Heparin Infusion)2022-08-27 20:52:49 Test Item Value Reference Range Interpretation Comments APTT Patient (test code = See_Comment [ Automated message] 3173-2) The system [employer] generated this result transmitted ref erence range: 26 - 36 Seconds. The re ference range was not u sed to interpret this result as normal/abnor mal. Lab Interpretation (test Normal code = 85845-1) [facility] use with [facility]arin Infusion)2022-08-27 20:52:49 Test Item Value Reference Range Interpretation Comments APTT Patient (test code = See_Comment [ Automated message] 3173-2) The system [employer] generated this result transmitted ref erence range: 26 - 36 Seconds. The re ference range was not u sed to interpret this result as normal/abnor mal. Lab Interpretation (test Normal code = 66032-2) [facility] (TTE)2022-08-27 20:34:30 Test Item Value Reference Range Interpretation Comments Height (test code = in 5813735626) Weight (test code = lbs 9161205326) Systolic BP (test code = mmHg 0312765127) Diastolic BP (test code mmHg = 0951010475) Heart Rate (test code = bpm 8776059436) BSA (test code = 2.13 m2 7703453891) Ao root diam (test code 2.70 cm = 2512886354) Aortic root (test code = 2.7 cm 3467548304) Ao root annulus (test 2.7 cm code = 1070165680) LA size (test code = 3.4 cm 3360446007) LVOT diameter (test code 2.09 cm = 0089556006) LVOT area (test code = 3.40 cm2 3317685222) LVPWD (test code = 1.15 cm 3685809120) PW (test code = 1.15 cm 0.6-1.6 7806426441) LVIDD (test code = 4.50 cm 0667426921) Left Ventricular End 93.4 mL Diastolic Volume by Teichholz Method (test code = 3179718) IVS (test code = 1.13 cm 9482548401) Interventricular Septum 1.13 cm Diastolic Thickness by 2D (test code = 4398845) EF(Teich) (test code = 56.50 % 3096108340) LVIDS (test code = 3.20 cm 5093265808) Left Ventricular End 40.6 mL Systolic Volume by Teichholz Method (test code = 0297410) FS (test code = 29 % 5996240660) EF - 2D (test code = 56.50 % 92639665) E wave decelartion time 0.19 s (test code = 0699599325) MV Peak E Jemma (test code 68.4 cm/s = 0662069735) MV Peak A Jemma (test code 94.6 cm/s = 3200995185) E/A ratio (test code = ratio 7172293336) MV Prop V (test code = 52.20 cm/s 5660878799) LAV(MOD-sp4) (test code 64.70 mL = 0770873930) LVOT stroke volume (test 62.30 cm3 code = 0865139820) LVOT peak jemma (test code 109.4 cm/s = 0669314114) LVOT mn grad (test code mmHg = 2244299708) AV LVOT peak gradient mmHg (test code = 8406395149) LVOT peak VTI (test code 18.2 cm = 4948621936) LV V1 mean (test code = 75.90 cm/s 1083439869) Tapse (test code = 1.83 cm 4228438222) LA Volume Index (BP) 35.1 mL/m2 (test code = 7643695885) LA volume (BP) (test 74.7 mL code = 3112240207) LAV(MOD-sp2) (test code 68.00 mL = 6229187747) A4C EF (test code = 48.80 % 9665522718) EF(sp4-el) (test code = 49.60 % 2610009590) SV(MOD-sp4) (test code = 44.60 mL 6688201457) SV(sp4-el) (test code = 48.00 mL 4363849265) LV Diastolic Volume (BP) 85.2 mL (test code = 4187779461) A2C EF (test code = 55.50 % 2965247763) EF(MOD-bp) (test code = 46.40 % 6224089269) EF(sp2-el) (test code = 54.80 % 5293879383) LV Systolic Volume (BP) 45.7 mL (test code = 0670102433) SV(MOD-bp) (test code = 39.50 mL 8444759549) SV(MOD-sp2) (test code = 40.50 mL 9084810697) EF (test code = 0910131397) Left Ventricular Stroke 39.5 mL Volume by 2-D Biplane-MOD (test code = 6274844) LV Diastolic Volume 40.0 mL/m2 Index (BP) (test code = 7572279730) LV Systolic Volume Index 21.5 mL/m2 (BP) (test code = 4034131533) Radiology Study observation (narrative) (test code = 14625-3) TRINI (test code = TRINI) ?Left?Ventricle: Left ventricle size is normal. Mildly increased wall thickness. There is concentric remodeling. Normal wall motion. Normal systolic function with a visually estimated EF of 55 - 60%. There is grade 2 diastolic dysfunction. Left VentricleLeft ventricle size is normal. Mildly increased wall thickness. There is concentric remodeling. Normal wall motion. Normal systolic function with a visually estimated EF of 55 - 60%. There is grade 2 diastolic dysfunction.Right VentricleRight ventricle size is normal. Normal systolic function.Left AtriumLeft atrium is mildly dilated.Right AtriumRight atrium size is normal.IVC/SVCIVC diameter is less than or equal to 21 mm and decreases greater than 50% during inspiration; therefore the estimated right atrial pressure is normal (~0-5 mmHg). SVC was not assessed.Mitral ValveMitral valve structure is normal. Mild mitral annular calcification. Trace transvalvular regurgitation. No stenosis.Tricuspid ValveTricuspid valve structure is normal. Insufficient tricuspid regurgitation jet to estimate RVSP.No stenosis.Aortic ValveAortic valve structure is normal. No transvalvular regurgitation. No evidence of aortic stenosis.Pulmonic ValveValve structure is normal. Trace transvalvular regurgitation. No stenosis.Ascending AortaNormal sized annulus and sinus of Valsalva.PericardiumT he pericardium is normal. No pericardial effusion.Study DetailsStudy quality was adequate. A complete echocardiogram was performed using 2D, color flow Doppler and spectral Doppler. The apical, parasternal and subcostal views were obtained. 5 mL of Lumason ultrasound enhancing agent used. [facility] 20:34:30 Test Item Value Reference Range Interpretation Comments Height (test code = in 0807521344) Weight (test code = lbs 4945510297) Systolic BP (test code = mmHg 1665810649) Diastolic BP (test code mmHg = 9169701536) Heart Rate (test code = bpm 5485024686) BSA (test code = 2.13 m2 9344364745) Ao root diam (test code 2.70 cm = 0155755683) Aortic root (test code = 2.7 cm 9866540585) Ao root annulus (test 2.7 cm code = 2324818593) LA size (test code = 3.4 cm 2650518699) LVOT diameter (test code 2.09 cm = 0650167133) LVOT area (test code = 3.40 cm2 7002822566) LVPWD (test code = 1.15 cm 6841626235) PW (test code = 1.15 cm 0.6-1.6 4355496978) LVIDD (test code = 4.50 cm 1624367382) Left Ventricular End 93.4 mL Diastolic Volume by Teichholz Method (test code = 3854848) IVS (test code = 1.13 cm 9854410663) Interventricular Septum 1.13 cm Diastolic Thickness by 2D (test code = 5075317) EF(Teich) (test code = 56.50 % 4833148172) LVIDS (test code = 3.20 cm 3261378101) Left Ventricular End 40.6 mL Systolic Volume by Teichholz Method (test code = 5251988) FS (test code = 29 % 2513439219) EF - 2D (test code = 56.50 % 50371507) E wave decelartion time 0.19 s (test code = 5510386907) MV Peak E Jemma (test code 68.4 cm/s = 4649021281) MV Peak A Jemma (test code 94.6 cm/s = 1801213493) E/A ratio (test code = ratio 0189412478) MV Prop V (test code = 52.20 cm/s 5185789932) LAV(MOD-sp4) (test code 64.70 mL = 9889883628) LVOT stroke volume (test 62.30 cm3 code = 5916491267) LVOT peak jemma (test code 109.4 cm/s = 5968647216) LVOT mn grad (test code mmHg = 8958418394) AV LVOT peak gradient mmHg (test code = 1569944709) LVOT peak VTI (test code 18.2 cm = 6175128922) LV V1 mean (test code = 75.90 cm/s 7039446858) Tapse (test code = 1.83 cm 7983851405) LA Volume Index (BP) 35.1 mL/m2 (test code = 4328703711) LA volume (BP) (test 74.7 mL code = 0266137485) LAV(MOD-sp2) (test code 68.00 mL = 1322827738) A4C EF (test code = 48.80 % 7325276329) EF(sp4-el) (test code = 49.60 % 4243172751) SV(MOD-sp4) (test code = 44.60 mL 2810121897) SV(sp4-el) (test code = 48.00 mL 0727568382) LV Diastolic Volume (BP) 85.2 mL (test code = 7274828553) A2C EF (test code = 55.50 % 5873909955) EF(MOD-bp) (test code = 46.40 % 8932467364) EF(sp2-el) (test code = 54.80 % 0083150127) LV Systolic Volume (BP) 45.7 mL (test code = 2438048527) SV(MOD-bp) (test code = 39.50 mL 0924258086) SV(MOD-sp2) (test code = 40.50 mL 6553070078) EF (test code = 0125372883) Left Ventricular Stroke 39.5 mL Volume by 2-D Biplane-MOD (test code = 2623379) LV Diastolic Volume 40.0 mL/m2 Index (BP) (test code = 0224088453) LV Systolic Volume Index 21.5 mL/m2 (BP) (test code = 6183362876) Radiology Study observation (narrative) (test code = 18376-1) TRINI (test code = TRINI) ?Left?Ventricle: Left ventricle size is normal. Mildly increased wall thickness. There is concentric remodeling. Normal wall motion. Normal systolic function with a visually estimated EF of 55 - 60%. There is grade 2 diastolic dysfunction. Left VentricleLeft ventricle size is normal. Mildly increased wall thickness. There is concentric remodeling. Normal wall motion. Normal systolic function with a visually estimated EF of 55 - 60%. There is grade 2 diastolic dysfunction.Right VentricleRight ventricle size is normal. Normal systolic function.Left AtriumLeft atrium is mildly dilated.Right AtriumRight atrium size is normal.IVC/SVCIVC diameter is less than or equal to 21 mm and decreases greater than 50% during inspiration; therefore the estimated right atrial pressure is normal (~0-5 mmHg). SVC was not assessed.Mitral ValveMitral valve structure is normal. Mild mitral annular calcification. Trace transvalvular regurgitation. No stenosis.Tricuspid ValveTricuspid valve structure is normal. Insufficient tricuspid regurgitation jet to estimate RVSP.No stenosis.Aortic ValveAortic valve structure is normal. No transvalvular regurgitation. No evidence of aortic stenosis.Pulmonic ValveValve structure is normal. Trace transvalvular regurgitation. No stenosis.Ascending AortaNormal sized annulus and sinus of Valsalva.PericardiumT he pericardium is normal. No pericardial effusion.Study DetailsStudy quality was adequate. A complete echocardiogram was performed using 2D, color flow Doppler and spectral Doppler. The apical, parasternal and subcostal views were obtained. 5 mL of Lumason ultrasound enhancing agent used. [facility] GLUCOSE (AUTOMATED)2022-08-27 20:16:48 Test Item Value Reference Range Interpretation Comments POCT GLU (test code = 254 mg/dL 70-110 H Notifi ed Provider [id number]) Lab Interpretation (test Abnormal code = 90487-6) [facility] GLUCOSE (AUTOMATED)2022-08-27 20:16:48 Test Item Value Reference Range Interpretation Comments POCT GLU (test code = 254 mg/dL 70-110 H Notifi ed Provider [id number]) Lab Interpretation (test Abnormal code = 29258-7) [facility] GLUCOSE (AUTOMATED)2022-08-27 16:11:35 Test Item Value Reference Range Interpretation Comments POCT GLU (test code = 7500848300) 229 mg/dL 70-110 H Lab Interpretation (test code = Abnormal 28166-6) [facility] GLUCOSE (AUTOMATED)2022-08-27 16:11:35 Test Item Value Reference Range Interpretation Comments POCT GLU (test code = 5648745594) 229 mg/dL 70-110 H Lab Interpretation (test code = Abnormal 44726-5) [place] [id number] 04:14:14 Test Item Value Reference Range Interpretation Comments APTT Patient (test See_Comment [Automat ed code = 3173-2) message] The system which generated this result transmitted reference range : 23 - 38 Seconds . The reference range was not used to interpr et this result as normal/abnormal . TRINI (test code = TRINI) [facility] patient population mean normal value for aPTT is 30 seconds. Lab Interpretation Normal (test code = 88534-4) [place] [id number] 04:14:14 Test Item Value Reference Range Interpretation Comments APTT Patient (test See_Comment [Automat ed code = 3173-2) message] The system which generated this result transmitted reference range : 23 - 38 Seconds . The reference range was not used to interpr et this result as normal/abnormal . TRINI (test code = TRINI) [facility] patient population mean normal value for aPTT is 30 seconds. Lab Interpretation Normal (test code = 63746-9) [facility] / [id number] 04:12:13 Test Item Value Reference Range Interpretation Comments PROTIME PATIENT (test See_Comment [Auto mated message] code = 5964-2) The system [employer] generated this result transmitted ref erence range: 12.0 - 1 4.7 Seconds. The re ference range was not u sed to interpret this result as normal/abnor mal. INR (test code = 6301-6) Nor mal INR <1.1; Warfarin Therap eutic range 2.0 to 3. 0 or 2.5 to 3.5, dep ending upon the indica tions. Lab Interpretation (test Normal code = 08877-1) [facility] / [id number] 04:12:13 Test Item Value Reference Range Interpretation Comments PROTIME PATIENT (test See_Comment [Auto mated message] code = 5964-2) The system ich generated this result transmitted ref erence range: 12.0 - 1 4.7 Seconds. The re ference range was not u sed to interpret this result as normal/abnor mal. INR (test code = 6301-6) Nor mal INR <1.1; Warfarin Therap eutic range 2.0 to 3. 0 or 2.5 to 3.5, dep ending upon the indica tions. Lab Interpretation (test Normal code = 19994-2) [facility]
[2023-01-28 02:37] LABS: Absolute Lymphocytes (CBC) 1.5 K/uL (0.7-4.9); Hematocrit 40.8 % (39.6-49.0); Lymphocytes % 13.8 % (15.3-44.8); MCV 84.5 fL (80-100); MPV 7.8 fL (7.6-11.3); RBC Red Blood Cell Count 4.83 M/uL (4.33-5.43)
[2023-01-28 02:47] LABS: Albumin 3.6 g/dL (3.4-5.0); Bilirubin Direct 0.1 mg/dL (0-0.2); Bilirubin Total 0.3 mg/dL (0.2-1.0); Potassium 4.2 mEq/L (3.5-5.1); Troponin High Sensitivity 13.2 pg/mL (<58.9)
--- NOTE | 2023-01-28 04:54 | P.HP ---
Certification for Inpatient Patient admitted to: Observation With expected LOS: <2 Midnights Patient will require the following post-hospital care: None Practitioner: I am a practitioner with admitting privileges, knowledge of patient current condition, hospital course, and medical plan of care. Services: Services provided to patient in accordance with Admission requirements found in Title 42 Section 412.3 of the Code of Federal Regulations Patient History Date of Service: 01/28/23 Reason for admission: TIA/CVA Rule Out History of Present Illness: Mr. Eduardo is a 57-year-old male with past medical history of CVA with right sided deficits, non insulin dependent diabetes type 2, hypertension, and CKD3b presents to the emergency room with generalized weakness and increasing right leg weakness. Patient had a CVA about 1 month ago that has caused his right leg to be weak. He says that last night he started feeling overall very week and 30 minutes [employer] IN[employer] his right leg became even weaker than his baseline. Head CT negative for acute findings. No significant lab abnormalities. He states that those symptoms have since resolved and he is back to his baseline. ED provider wishes to admit patient for TIA, CVA rule out. Allergies No Known Allergies Allergy (Unverified 06/01/22 09:44) Home medications list reviewed: Yes Home Medications: Metoprolol Tartrate [Lopressor*] 25 mg PO BID #60 tab 06/03/22 Bupropion *Xl* [Wellbutrin XL*] 1 tab PO DAILY 01/01/23 Glimepiride 1 tab PO DAILY 01/01/23 Sertraline HCl 50 mg PO DAILY 01/01/23 Trazodone [Desyrel*] 50 mg PO BEDTIME 01/01/23 Aspirin Chewable [Aspirin Chewable*] 81 mg PO DAILY #1 tab.chew 01/06/23 Atorvastatin Calcium 40 mg PO BEDTIME #30 tab 01/06/23 Clopidogrel Bisulfate [Plavix*] 75 mg PO DAILY #30 tab 01/06/23 Folic Acid 1 mg PO DAILY #1 01/06/23 - Past Medical/Surgical History Diabetic: Yes -: Hypertension -: CKD3b -: Obesity -: CVA Past Surgical History: Patient denies surgical history Psychosocial/ Personal History: Patient is . - Family History Family History: Reviewed- Non-Contributory - Social History Smoking Status: Never smoker Alcohol use: No CD- Drugs: Yes Caffeine use: No Place of Residence: Home Review of Systems General: Weakness Neurological: Weakness (right leg) Physical Examination - Vital Signs Temperature: 98.9 F Blood Pressure: 123/73 Pulse: 92 Respirations: 22 Pulse Ox (%): 99 - Physical Exam General: Alert, In no apparent distress HEENT: Atraumatic, EOMI, Sclerae nonicteric Neck: Supple, 2+ carotid pulse no bruit Respiratory: Clear to auscultation bilaterally, Normal air movement Cardiovascular: Regular rate/rhythm, Normal S1 S2 Gastrointestinal: Normal bowel sounds, No tenderness Musculoskeletal: No tenderness Integumentary: No rashes Neurological: Normal speech, Normal strength at 5/5 x4 extr, Sensation intact, Normal affect - Studies Laboratory Data (last 24 hrs) 01/28/23 02:14: WBC 10.90, Hgb 13.9, Hct 40.8, Plt Count 212 01/28/23 02:14: Sodium 137, Potassium 4.2, BUN 29 H, Creatinine 1.97 H, Glucose 222 H, Total Bilirubin 0.3, AST 21, ALT 55, Alkaline Phosphatase 123 H Assessment and Plan - Problems (Diagnosis) (1) TIA (transient ischemic attack) Current Visit: Yes Status: Acute (2) Hypertension Current Visit: Yes Status: Chronic Qualifiers: Hypertension type: primary hypertension Qualified Code(s): I10 - Essential (primary) hypertension (3) Chronic kidney disease Current Visit: Yes Status: Chronic Qualifiers: Chronic kidney disease stage: stage 3 (moderate) Chronic kidney disease stage 3 subtype: stage 3b (GFR 30-44) Qualified Code(s): N18.32 - Chronic kidney disease, stage 3b (4) Type 2 diabetes mellitus Current Visit: Yes Status: Chronic Qualifiers: Diabetes mellitus mcc insulin use: without accounting coordinator use Diabetes mellitus complication status: with hyperglycemia Qualified Code(s): E11.65 - Type 2 diabetes mellitus with hyperglycemia - Plan Patient is admitted for TIA/CVA rule out. MRI stroke protocol ordered. Neurology consulted. 01/03/23 MRI- "Significantly diminished flow within the right anterior cerebral artery, probably acute given acute right anterior cerebral infarction." Check A1c, lipid panel, TSH. Frequent neurologic checks. Aspirin, plavix, atorvastatin, folic acid daily. [facility] accu checks with mild sliding scale and diabetic diet. Neurology consulted. Monitor and replete electrolytes per protocol. Reconcile and continue home medications. Lovenox for VTE prophylaxis. Full code. Discharge Plan: Home Plan to discharge in: 24 Hours - Advance Directives Does patient have a Living Will: No Does patient have a Durable POA for Healthcare: No - Code Status/Comfort Care Code Status Assessed: Yes Code Status: Full Code Physician Review: Patient Assessed, Agree with Above Assessment and Plan Critical Care: No Time Spent Managing Pts Care (In Minutes): 50
[2023-01-28 04:55] VITALS: TEMP 98.9
--- NOTE | 2023-01-28 05:08 | ER ---
Nurse's Notes [facility] Name: Cristobal Eduardo Age: 57 yrs Sex: Male : 1965 Arrival Date: 01/28/2023 Time: 01:00 Bed 3 Private MD: Diagnosis: Right-sided weakness, TIA -resolved Presentation: 01/28 01:02 Chief complaint: Patient states: I fell today about 30 minutes ago. I started feeling jb4 weak yesterday at 6pm. I have right sided weakness from my last stroke. I only feel weak in my right leg, it feels the same as from my prior stroke. Coronavirus screen: At this time, the client does not indicate any symptoms associated with coronavirus-19. Ebola Screen: No symptoms or risks identified at this time. Initial Sepsis Screen: Does the patient meet any 2 criteria? No. Patient's initial sepsis screen is negative. Does the patient have a suspected source of infection? No. Patient's initial sepsis screen is negative. Risk Assessment: Do you want to hurt yourself or someone else? Patient reports no desire to harm self or others. Onset of symptoms was January 28, 2023. Transition of care: patient was not received from another setting of care. 01:02 Method Of Arrival: EMS: [facility] jb4 01:02 Acuity: [facility] 3 jb4 Historical: - Allergies: 01:06 No Known Allergies; jb4 - PMHx: 01:06 CVA w/ R sided deficits; diabetes mellitus; Hypertensive disorder; pre-diabetic; jb4 - Immunization history:: Adult Immunizations up to date. - Social history:: Smoking status: Patient denies any tobacco usage or history of. Screenin:10 [facility] ED Fall Risk Assessment (Adult) History of falling in the last 3 months, jb4 including since admission Yes- single mechanical fall (1 pt) Confusion or Disorientation No (0 pts) Score/Fall Risk Level 0 - 2 = Low Risk Oriented to surroundings, Maintained a safe environment. Abuse screen: Denies threats or abuse. Nutritional screening: No deficits noted. Tuberculosis screening: No symptoms or risk factors identified. Assessment: 01:07 General: Appears in no apparent distress. comfortable, Behavior is calm, cooperative, jb4 appropriate for age. Pain: Denies pain. Neuro: Level of Consciousness is awake, alert, obeys commands, Oriented to person, place, time, situation, Moves all extremities. Full function Speech is normal, Facial symmetry appears normal, Pupils are PERRLA, Reports weakness in right leg. Cardiovascular: Patient's skin is warm and dry. Respiratory: Airway is patent Respiratory effort is even, unlabored, labored, Respiratory pattern is regular, symmetrical. GI: No signs and/or symptoms were reported involving the gastrointestinal system. : No signs and/or symptoms were reported regarding the genitourinary system. EENT: No signs and/or symptoms were reported regarding the EENT system. Derm: Skin is intact, Skin is pink, warm \T\ dry. Musculoskeletal: Circulation, motion, and sensation intact. Range of motion: intact in all extremities. 02:45 Reassessment: Patient appears in no apparent distress at this time. Patient and/or jb4 family updated on plan of care and expected duration. Pain level reassessed. Patient is alert, oriented x 3, equal unlabored respirations, skin warm/dry/pink. Vital Signs: 01:02 BP 123 / 73; Pulse 100; Resp 18; Temp 98.9(O); Pulse Ox 95% on R/A; Weight 105.5 kg; jb4 Height 5 ft. 5 in. ; 02:45 Pulse 92; Resp 22; Pulse Ox 99% on R/A; jb4 04:00 BP 123 / 77; Pulse 95; Resp 25 S; Pulse Ox 98% on R/A; as6 05:00 BP 147 / 91; Pulse 96; Resp 21 S; Pulse Ox 97% on R/A; as6 01:02 Body Mass Index 38.70 (105.50 kg, 165.1 cm) jb4 NIH Stroke Scale Scores: 05:08 NIHSS Score: 0 kdr ED Course: 01:01 Patient arrived in ED. as6 01:01 Michael Canales, BENNY is Primary Nurse. jb4 01:05 Triage completed. jb4 01:06 Arm band placed on right wrist. jb4 01:09 Cristobal Hanna MD is Attending Physician. kdr 01:10 Patient has correct armband on for positive identification. Bed in low position. Call jb4 light in reach. Side rails up X 1. Client placed on continuous cardiac and pulse oximetry monitoring. NIBP monitoring applied. 01:23 XRAY Chest (1 view) In Process Unspecified. EDMS 02:15 CT Head C Spine In Process Unspecified. EDMS 05:07 Kurt Iqbal is Hospitalizing Provider. kdr 05:35 No provider procedures requiring assistance completed. Patient admitted, IV remains in as6 place. Administered Medications: No medications were administered Medication: 05:35 VIS not applicable for this client. as6 Outcome: 05:08 Decision to Hospitalize by Provider. kdr 05:35 Admitted to ER Hold. Please see [facility] for further documentation. as6 05:35 Condition: stable 05:35 Instructed on the need for admit. 13:12 Patient left the ED. bp NIH Stroke Scale - NIH Stroke Score Date: 01/28/2023 Time: 05:08 Total Score = 0 10. Dysarthria (speech clarity - read or repeat words) - 0(Normal) 11. Extinction and Inattention (visual/tactile/auditory/spatial/personal) - 0(No abnormality) 1a. Level of Consciousness (LOC) - 0(Alert) 1b. Level of Consciousness (LOC) (Month \T\ Age) - 0(Both) 1c. LOC Commands (Open \T\ Closes Eyes/Peer Health Promoter) - 0(Both) 2. Best Gaze (Lateral Gaze Paresis) - 0(Normal) 3. Visual Field Loss - 0(No visual loss) 4. Facial Palsy - 0(Normal) 5a. Left Arm: Motor (10-second hold) - 0(No drift) 5b. Right Arm: Motor (10-second hold) - 0(No drift) 6a. Left Leg: Motor (5-second hold - always test supine) - 0(No drift) 6b. Right Leg: Motor (5-second hold - always test supine) - 0(No drift) 7. Limb Ataxia (finger/nose \T\ heel/leigh - test with eyes open) - 0(Absent) 8. Sensory Loss (pinprick arms/legs/face) - 0(Normal) 9. Best Language: Aphasia (description/naming/reading) - 0(No aphasia) Initials: kdr Signatures: Dispatcher [employer] EDMS Cristobal Hanna MD MD kdr Michael Canales, BENNY RN jb4 Jeff Bautista RN RN bp Aryan Valentino RN RN as6
--- NOTE | 2023-01-28 05:08 | EDPHYS ---
Physician Documentation [facility] Name: Cristobal Eduardo Age: 57 yrs Sex: Male : 1965 Arrival Date: 01/28/2023 Time: 01:00 Bed 3 Private MD: ED Physician Cristobal Hanna HPI: 01/28 04:13 This 57 yrs old Male presents to ER via EMS with unknown complaint. kdr 04:13 This 57 yrs old Male presents to ER via EMS with complaints of Weakness right side. kdr 04:13 Patient states that last evening around 6 PM he started to feel generalized weakness. kdr He has some weakness from a prior stroke some months ago on the right side. He indicated that it was primarily his foot that he thought was weak. About 30 minutes prior to arrival he fell which prompted him to call EMS to be brought to the ED for further evaluation. Patient is alert and oriented and speaking with no apparent neurologic deficits. Patient is not emergently ill in appearance at this time. Due to the timeframe and minimal symptoms, stroke activation was not appropriate.. Onset: The symptoms/episode began/occurred suddenly. Severity of symptoms: At their worst the symptoms were very mild in the emergency department the symptoms have improved. The patient has experienced similar episodes in the past, a few times. The patient has not recently seen a physician. Historical: - Allergies: 01:06 No Known Allergies; jb4 - PMHx: 01:06 CVA w/ R sided deficits; diabetes mellitus; Hypertensive disorder; pre-diabetic; jb4 - Immunization history:: Adult Immunizations up to date. - Social history:: Smoking status: Patient denies any tobacco usage or history of. ROS: 04:13 Constitutional: Negative for fever, chills, and weight loss, Eyes: Negative for injury, kdr pain, redness, and discharge, ENT: Negative for injury, pain, and discharge, Neck: Negative for injury, pain, and swelling, Cardiovascular: Negative for chest pain, palpitations, and edema, Respiratory: Negative for shortness of breath, cough, wheezing, and pleuritic chest pain, Abdomen/GI: Negative for abdominal pain, nausea, vomiting, diarrhea, and constipation, Back: Negative for injury and pain, : Negative for injury, bleeding, discharge, and swelling, MS/Extremity: Negative for injury and deformity, Skin: Negative for injury, rash, and discoloration, Psych: Negative for depression, anxiety, suicide ideation, homicidal ideation, and hallucinations, Allergy/Immunology: Negative for hives, rash, and allergies, Endocrine: Negative for neck swelling, polydipsia, polyuria, polyphagia, and marked weight changes, Hematologic/Lymphatic: Negative for swollen nodes, abnormal bleeding, and unusual bruising. 04:13 Neuro: Positive for weakness, Negative for altered mental status, dizziness, headache, hearing loss, loss of consciousness, numbness, seizure activity, speech changes, syncope, near syncope, tingling, tinnitus, tremor, visual changes. Exam: 05:08 Constitutional: This is a well developed, well nourished patient who is awake, alert, kdr and in no acute distress. Head/Face: Normocephalic, atraumatic. Eyes: Pupils equal round and reactive to light, extra-ocular motions intact. Lids and lashes normal. Conjunctiva and sclera are non-icteric and not injected. Cornea within normal limits. Periorbital areas with no swelling, redness, or edema. Neck: Trachea midline, no thyromegaly or masses palpated, and no cervical lymphadenopathy. Supple, full range of motion without nuchal rigidity, or vertebral point tenderness. No Meningismus. Chest/axilla: Normal chest wall appearance and motion. Nontender with no deformity. No lesions are appreciated. Cardiovascular: Regular rate and rhythm with a normal S1 and S2. No gallops, murmurs, or rubs. Normal PMI, no JVD. No pulse deficits. Respiratory: Lungs have equal breath sounds bilaterally, clear to auscultation and percussion. No rales, rhonchi or wheezes noted. No increased work of breathing, no retractions or nasal flaring. Abdomen/GI: Soft, non-tender, with normal bowel sounds. No distension or tympany. No guarding or rebound. No evidence of tenderness throughout. Back: No spinal tenderness. No costovertebral tenderness. Full range of motion. Skin: Warm, dry with normal turgor. Normal color with no rashes, no lesions, and no evidence of cellulitis. MS/ Extremity: Pulses equal, no cyanosis. Neurovascular intact. Full, normal range of motion. Neuro: Awake and alert, GCS 15, oriented to person, place, time, and situation. Cranial nerves II-XII grossly intact. Motor strength 5/5 in all extremities. Sensory grossly intact. Cerebellar exam normal. Normal gait. Psych: Awake, alert, with orientation to person, place and time. Behavior, mood, and affect are within normal limits. Vital Signs: 01:02 BP 123 / 73; Pulse 100; Resp 18; Temp 98.9(O); Pulse Ox 95% on R/A; Weight 105.5 kg; jb4 Height 5 ft. 5 in. ; 02:45 Pulse 92; Resp 22; Pulse Ox 99% on R/A; jb4 04:00 BP 123 / 77; Pulse 95; Resp 25 S; Pulse Ox 98% on R/A; as6 05:00 BP 147 / 91; Pulse 96; Resp 21 S; Pulse Ox 97% on R/A; as6 01:02 Body Mass Index 38.70 (105.50 kg, 165.1 cm) jb4 NIH Stroke Scale Scores: 05:08 NIHSS Score: 0 kdr MDM: 05:08 Patient medically screened. kdr 05:08 Data reviewed: vital signs, nurses notes, lab test result(s), radiologic studies. kdr 01/28 01:11 Order name: Basic Metabolic Panel; Complete Time: 04:21 kdr 01/28 01:11 Order name: CBC with Diff; Complete Time: 04:21 kdr 01/28 01:11 Order name: LFT's; Complete Time: 04:21 kdr 01/28 01:11 Order name: NT PRO-BNP; Complete Time: 04:21 kdr 01/28 01:11 Order name: Troponin HS; Complete Time: 04:21 kdr 01/28 08:47 Order name: Glucose, Ancillary Testing EDKS 01/28 11:49 Order name: Glucose, Ancillary Testing EDKS 01/28 01:11 Order name: XRAY Chest (1 view) kdr 01/28 01:12 Order name: CT Head C Spine kdr 01/28 09:07 Order name: MRI EDKS 01/28 09:23 Order name: MRI EDKS 01/28 01:11 Order name: EKG; Complete Time: 01:12 kdr 01/28 01:11 Order name: Cardiac monitoring; Complete Time: 01:47 kdr 01/28 01:11 Order name: EKG - Nurse/Tech; Complete Time: 01:47 kdr 01/28 01:11 Order name: IV Saline Lock; Complete Time: 01:47 kdr 01/28 01:11 Order name: Labs collected and sent; Complete Time: 01:47 kdr 01/28 01:11 Order name: O2 Per Protocol; Complete Time: 01:17 kdr 01/28 01:11 Order name: O2 Sat Monitoring; Complete Time: 01:17 kdr Administered Medications: No medications were administered Disposition Summary: 01/28/23 05:08 Hospitalization Ordered Hospitalization Status: Observation kdr Provider: Kurt Iqbal Condition: Fair kdr Problem: an acute exacerbation kdr Symptoms: have improved kdr Bed/Room Type: Standard kdr Location: [facility] ER HOLD(01/28/23 05:20) mw Room Assignment: ERHOLD-(01/28/23 05:20) mw Diagnosis - Right-sided weakness, TIA -resolved kdr Forms: - Medication Reconciliation Form kdr - SBAR form kdr NIH Stroke Scale - NIH Stroke Score Date: 01/28/2023 Time: 05:08 Total Score = 0 10. Dysarthria (speech clarity - read or repeat words) - 0(Normal) 11. Extinction and Inattention (visual/tactile/auditory/spatial/personal) - 0(No abnormality) 1a. Level of Consciousness (LOC) - 0(Alert) 1b. Level of Consciousness (LOC) (Month \T\ Age) - 0(Both) 1c. LOC Commands (Open \T\ Closes Eyes/Regulatory Affairs Spec) - 0(Both) 2. Best Gaze (Lateral Gaze Paresis) - 0(Normal) 3. Visual Field Loss - 0(No visual loss) 4. Facial Palsy - 0(Normal) 5a. Left Arm: Motor (10-second hold) - 0(No drift) 5b. Right Arm: Motor (10-second hold) - 0(No drift) 6a. Left Leg: Motor (5-second hold - always test supine) - 0(No drift) 6b. Right Leg: Motor (5-second hold - always test supine) - 0(No drift) 7. Limb Ataxia (finger/nose \T\ heel/leigh - test with eyes open) - 0(Absent) 8. Sensory Loss (pinprick arms/legs/face) - 0(Normal) 9. Best Language: Aphasia (description/naming/reading) - 0(No aphasia) Initials: kdr Signatures: Dispatcher [employer] EDMS Pennington, Batsheva, RN RN mw Rittger, Cristobal, MD MD [facility] Michael Canales RN RN jb4 Corrections: (The following items were deleted from the chart) 05:20 05:08 Telemetry/MedSurg (observation) [facility] 05:20 05:08 aleyda farris
[2023-01-28] MEDS ORDERED: ACETAMINOPHEN 500 MG TAB PO PRN (05:31)
[2023-01-28] MEDS ORDERED: NA CHLORIDE 0.9% 1,000 ML IV SCH (05:31)
[2023-01-28] MEDS ORDERED: ONDANSETRON 4 MG/2 ML VIAL IV PRN (05:31)
[2023-01-28 05:41] VITALS: BMI 38.7
[2023-01-28] MEDS ORDERED: NA CHLORIDE 0.9% 1,000 ML ONE (06:58)
[2023-01-28] MEDS: INSULIN -REGULAR HUMAN 50 UNIT/0.5 ML ML SQ SCH ×2 (07:30→11:30)
[2023-01-28] MEDS ORDERED: FOLIC ACID 1 MG TABLET ONE (08:50)
[2023-01-28] MEDS ORDERED: ASPIRIN EC 81 MG TAB PO ONE (08:50)
[2023-01-28] MEDS ORDERED: ENOXAPARIN 40 MG/0.4 ML SQ ONE (08:51)
[2023-01-28] MEDS ORDERED: FOLIC ACID 1 MG TABLET PO SCH (09:00)
[2023-01-28] MEDS ORDERED: ASPIRIN EC 81 MG TAB PO SCH (09:00)
[2023-01-28] MEDS ORDERED: ENOXAPARIN 40 MG/0.4 ML SQ SCH (09:00)
--- NOTE | 2023-01-28 09:07 | RAD REPORT ---
EXAM DESCRIPTION: MRI - Brain Wo Cont - 01/28/2023 8:28 am CLINICAL HISTORY: TIA, right leg weakness COMPARISON: MRA brain of the same day. CT head 01/28/2023. MRI and MRA brain 01/03/2023 TECHNIQUE: Multiplanar multisequence MRI of the brain performed without IV contrast. FINDINGS: Stable small foci of diffusion restriction in the right centrum semiovale, series 6, image 65. Other diffusion restriction abnormalities in the juxta cortical right frontal lobe more superiorly and righ t perisylvian region, as well as the right centrum semiovale more anteriorly have since normalized. Stable regions of encephalomalacia in the superior left parasagittal frontoparietal region, and to a more limited extent in the right superior frontal lobe. Small focus of near CSF signal intensity with adjacent gliosis in the right basal ganglia region is stable. Findings are suggestive of sequelae of remote ischemia. No evidence of acute intracranial hemorrhage or abnormal extra-axial fluid collections. Stable ventricular caliber, with mild overall volume loss, and ex vacuo dilation of the lateral ventr icle bodies and frontal horns, more so on the left. Midline structures are unremarkable. Other scattered subcortical and deep white matter T2/FLAIR hyperintensities, nonspecific, but suggest memo of chronic small vessel ischemic changes. No mass effect or midline shift. Major vascular flow voids are preserved. Small left maxillary sinus mucous retention cysts, stable. Patchy opacification in the mastoid air ce lls bilaterally. The IMPRESSION: Partially resolved diffusion restriction abnormalities in the right hemisphere, without new signal abnormalities, compatible with expected time interval changes of a subacute infarct. No ot her acute intracranial process. Bilateral frontal predominant parasagittal regions of encephalomalacia more extensive on the left, co mpatible with sequelae of remote ischemia. Other stable chronic findings as above.
--- NOTE | 2023-01-28 09:22 | RAD REPORT ---
EXAM DESCRIPTION: MRI - MRA Head Wo Cont - 01/28/2023 8:24 am CLINICAL HISTORY: TIA, right leg weakness COMPARISON: Brain Wo Cont dated 01/03/2023; MRA Head Wo Cont dated 01/03/2023; Brain Wo Cont dated 01/28; Head C Spine Mpr Wo Con dated 01/28/2023 FINDINGS: 3D noncontrast [id number] MR angiography of the [place] was performed. Stable findings including diminutive caliber of the left ICA communicating segment, and markedly dimi nished flow related signal throughout the left MCA and [place] and their proximal branches. Diminished fl ow related signal along the right [place] as well. 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 No evid ence of large vessel occlusion along the right MCA are its branches. No aneurysm, mother flow-limitin g stenosis or vascular malformation is seen. Forward flow seen in codominant vertebral arteries. The visualized dural venous sinuses appear patent. IMPRESSION: No new significant flow abnormality is identified. Stable chronic findings as above.
--- NOTE | 2023-01-28 12:15 | P.DS ---
Admission Date: 01/28/23 Discharge Date: 01/28/23 Disposition: DC HOME/HOME HEALTH CARE Discharge Condition: FAIR Reason for Admission: TIA/CVA Rule Out - Problems (1) History of CVA (cerebrovascular accident) Current Visit: Yes Status: Acute (2) TIA (transient ischemic attack) Current Visit: Yes Status: Acute (3) Chronic kidney disease Current Visit: Yes Status: Chronic Qualifiers: Chronic kidney disease stage: stage 3 (moderate) Chronic kidney disease stage 3 subtype: stage 3b (GFR 30-44) Qualified Code(s): N18.32 - Chronic kidney disease, stage 3b (4) Hypertension Current Visit: Yes Status: Chronic Qualifiers: Hypertension type: primary hypertension Qualified Code(s): I10 - Essential (primary) hypertension (5) Type 2 diabetes mellitus Current Visit: Yes Status: Chronic Qualifiers: Diabetes mellitus intermediate manager insulin use: without intermediate manager use Diabetes mellitus complication status: with hyperglycemia Qualified Code(s): E11.65 - Type 2 diabetes mellitus with hyperglycemia Brief History of Present Illness: Mr. Eduardo is a 57-year-old male with past medical history of CVA with right sided deficits, non insulin dependent diabetes type 2, hypertension, and CKD3b presents to the emergency room with generalized weakness and increasing right leg weakness. Patient had a CVA about 1 month ago that has caused his right leg to be weak. 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 Head CT negative for acute findings. No significant lab abnormalities. He states that those symptoms have since resolved and he is back to his baseline. Patient hospit alized for TIA or stroke rule out. Hospital Course: Patient placed under observation on the medical floor. His home medications including aspirin, Plavix, Lipitor and folic acid were continued. MRI of the brain did not show acute disease. Patient seen and evaluated by physical therapy. He is ambulatory with a walker. PT recommend outpatient therapy. He has no problems swallowing and no speech problem. Stroke is ruled out. Patient is deemed clinically stable for discharge. Vital Signs/Physical Exam: Temp Pulse Resp BP Pulse Ox 98.9 F 89 16 164/93 H 97 01/28/23 05:24 01/28/23 07:55 01/28/23 07:55 01/28/23 07:55 01/28/23 07:55 General: Alert, In no apparent distress, Oriented x3 HEENT: Mucous membr. moist/pink Neck: JVD not distended Respiratory: Clear to auscultation bilaterally, Normal air movement Cardiovascular: No edema, Regular rate/rhythm, Normal S1 S2 Gastrointestinal: Soft and benign, Non-distended, No tenderness Musculoskeletal: No swelling Integumentary: No rashes, No cyanosis Neurological: Normal strength at 5/5 x4 extr Laboratory Data at Discharge: WBC 10.90 thou/uL (4.3-10.9) 01/28/23 02:14 Hgb 13.9 g/dL (13.6-17.9) 01/28/23 02:14 Hct 40.8 % (39.6-49.0) 01/28/23 02:14 Plt Count 212 thou/uL (152-406) 01/28/23 02:14 Sodium 137 mEq/L (136-145) 01/28/23 02:14 Potassium 4.2 mEq/L (3.5-5.1) 01/28/23 02:14 BUN 29 mg/dL (7-18) H 01/28/23 02:14 Creatinine 1.97 mg/dL (0.70-1.30) H 01/28/23 02:14 Glucose 222 mg/dL (74-106) H 01/28/23 02:14 Total Bilirubin 0.3 mg/dL (0.2-1.0) 01/28/23 02:14 AST 21 U/L (15-37) 01/28/23 02:14 ALT 55 U/L (16-61) 01/28/23 02:14 Alkaline Phosphatase 123 U/L (45-117) H 01/28/23 02:14 Home Medications: Metoprolol Tartrate [Lopressor*] 25 mg PO BID #60 tab 06/03/22 Bupropion *Xl* [Wellbutrin XL*] 1 tab PO DAILY 01/01/23 Glimepiride 1 tab PO DAILY 01/01/23 Sertraline HCl 50 mg PO DAILY 01/01/23 Trazodone [Desyrel*] 50 mg PO BEDTIME 01/01/23 Aspirin Chewable [Aspirin Chewable*] 81 mg PO DAILY #1 tab.chew 01/06/23 Atorvastatin Calcium 40 mg PO BEDTIME #30 tab 01/06/23 Clopidogrel Bisulfate [Plavix*] 75 mg PO DAILY #30 tab 01/06/23 Folic Acid 1 mg PO DAILY #1 01/06/23 Terbinafine HCl [Lamisil At] 1 kimberly TP BID #24 g 01/28/23 New Medications: Terbinafine HCl [Lamisil At] 1 kimberly TP BID #24 g Diet: AHA Activity: Fall precautions Followup: Jeffery Ward MD [ASSOCIATE-ACTIVE - CAN ADMIT] - (within 4 weeks) Time spent managing pt's care (in minutes): 28
[2023-01-28 12:44] VITALS: BP 139/74
[2023-01-28 13:34] VITALS: O2SAT 97
--- NOTE | 2023-01-28 14:09 | RAD REPORT ---
EXAM DESCRIPTION: RAD - Chest Single View - 01/28/2023 1:21 am CLINICAL HISTORY: The patient is 57 years old and is Male; weakness TECHNIQUE: Frontal view of the chest. COMPARISON: No relevant prior studies available. FINDINGS: Lungs: Unremarkable. No consolidation. Pleural space: Unremarkable. No pneumothorax. Heart: Unremarkable. Mediastinum: Unremarkable. Bones/joints: Unremarkable. IMPRESSION: No acute findings in the chest. Electronically signed by: Arjun Dudley MD 01/28/2023 2:42 AM CDT Due to temporary technical issues with the PACS/Fluency reporting system, reports are being signed by the in house radiologists without review as a courtesy to insure prompt reporting. The interpreting radiologist is fully responsible for the content of the report.
--- NOTE | 2023-01-28 20:24 | RAD REPORT ---
EXAM DESCRIPTION: CT - Head C Spine Mpr Wo Con - 01/28/2023 6:28 am CLINICAL HISTORY: WEAKNESS TECHNIQUE: Axial computed tomography images of the head/brain and cervical spine without intravenous contrast. Sagittal and coronal reformatted images were created and reviewed. This CT exam was pe rformed using one or more of the following dose reduction techniques: automated exposure control, a djustment of the mA and/or kV according to patient size, and/or use of iterative reconstruction techn ique. COMPARISON: CT Head dated 01/01/2023 FINDINGS: Brain: Mild cerebral atrophy, left frontoparietal encephalomalacia compatible with remot e insult and right frias radiata CSF density focus suggestive of remote lacunar infarct again demons trated. No hemorrhage. Ventricles: Ex vacuo dilatation of the left frontal horn. No ventriculomegaly. Skull: No acute fracture. Sinuses: Left maxillary sinus is retention cyst/polyp. Mastoid air cells: Unremarkable as visualized. No mastoid effusion. Vertebrae: Unremarkable. No acute fracture. Normal alignment. Discs/spinal canal/neural foramina: Multilevel degenerative changes manifested by moderate to sever e disc degeneration and prominent concentric disc osteophytes. No critical canal stenosis. Severe multilevel foraminal compromise. Soft tissues: Unremarkable. Vasculature: There is atherosclerotic disease of the internal carotid arteries bilaterally. IMPRESSION: 1. No acute hemorrhage, focal mass or acute large territory infarction. 2. Moderate to severe multilevel degenerative changes. 3. Other findings as above. Electronically signed by: Darian Henao MD 01/28/2023 3:50 AM CDT Due to temporary technical issues with the PACS/Fluency reporting system, reports are being signed by the in house radiologists without review as a courtesy to insure prompt reporting. The interpreting radiologist is fully responsible for the content of the report.
[2023-01-28] MEDS ORDERED: ATORVASTATIN 40 MG TAB PO SCH (21:00)
--- NOTE | 2023-01-29 07:13 | EKG ---
Test Date: 2023-01-28 Test Time: 01:23:28 Janitorial Services Supervisor: MEASUREMENT RESULTS: Intervals: Rate: 97 MO: 110 QRSD: 80 QT: 350 QTc: 444 [place]: P: 0 MO: 110 QRS: 18 T: 104 INTERPRETIVE STATEMENTS: Sinus rhythm with short MO T wave abnormality, consider lateral ischemia Abnormal ECG Compared to ECG 01/13/2023 11:56:47 T-wave abnormality now present Sinus tachycardia no longer present ST (T wave) deviation no longer present Possible ischemia still present Electronically Signed On 01-29-23 07:09:45 CDT by Volodymyr Zelaya
== END 2023-01-28 12:45 | disposition home health service (06) ==
LOC: ER 01:00 → ERHOLD 04:48
PROVIDERS: ADMIT Internal Medicine; ATTEND Internal Medicine
DX: G45.9 Transient cerebral ischemic attack, unspecified (principal); I10 Essential (primary) hypertension; N18.32 Chronic kidney disease, stage 3b; E11.65 Type 2 diabetes mellitus with hyperglycemia; Z86.73 Personal history of transient ischemic attack (TIA), and cerebral infarction without residual deficits; R29.702 NIHSS score 2
CPT/HCPCS: 93005; 85025; 80048; 36415; 82947 ×2; 80076; 84484; 83880; 70450; 72125; 71045; 70551; 70544; 97116; 97161; 99285; J1650; J7030; G0378

== ENCOUNTER 2023-03-30 11:00 | Inpatient (IN) | payer OTHER, SELFPAY ==
--- OUTSIDE RECORDS SUMMARY | 2023-03-30 11:11 | XMS REPORT | Continuity of Care Document ---
:1965 Author Organization [facility] t Address [address] [place] [address] Care Team Providers Name Role Phone Christina Gallo MD Primary Care Physician [phone] ASHLEY PAL Attending Clinician Unavailable ASHLEY PAL Attending Clinician Unavailable EDD KIMBROUGH Attending Clinician Unavailable EDD KIMBROUGH Attending Clinician Unavailable JAY LANDA Attending Clinician Unavailable IZAIAH JULIAN Attending Clinician Unavailable Doctor Unassigned, [place] Attending Clinician Unavailable GABRIEL WEI Attending Clinician Unavailable GABRIEL WEI Attending Clinician Unavailable Gabriel Wei MD Attending Clinician LAWRENCE ARREDONDO Attending Clinician Unavailable Christina Gallo MD Attending Clinician [phone] Lab, Ang - Db Attending Clinician Unavailable CHRISTINA GALLO Attending Clinician Unavailable Mario Gil Attending Clinician Ronen, General Cardiology Attending Clinician Unavailable MARIO COURTNEY Attending Clinician Unavailable RADHA RODRIGUEZ Attending Clinician Unavailable Lawrence Arredondo MD Attending Clinician BERNARD GALLARDO Attending Clinician Unavailable VIDHI DODD Attending Clinician Unavailable GT PURCELL Attending Clinician Unavailable Radha Rodriguez Attending Clinician [facility], [facility] Sleep Attending Clinician DINORA HAMM Attending Clinician Unavailable DINORA HAMM Attending Clinician Unavailable Yury Pagan MD Attending Clinician Jenise PIÑA, Jasen Sandoval Attending Clinician Bernard Garay Attending Clinician STACEY MULLER Attending Clinician Unavailable Stacey Prater Attending Clinician Vtc-Lab Attending Clinician Unavailable SHAMIR MERIDA Attending Clinician Unavailable Leonardo Manriquez MD Attending Clinician Gt Purcell MD Attending Clinician Fer Macedo DO Attending Clinician Rodrigo Maya MD Attending Clinician RODRIGO MAYA Attending Clinician Unavailable RODRIGO MAYA Attending Clinician Unavailable LEONARDO MANRIQUEZ Attending Clinician Unavailable 1, [facility] Sleep [facility] Bed Attending Clinician Unavailable Pob, [facility] Main Attending Clinician Unavailable Cachorro ZAPATA, Kellie Attending Clinician Unavailable Only, [facility] Test Attending Clinician Unavailable Facundo Galvez MD Attending Clinician Lab, [facility] Fam Pob I Attending Clinician Unavailable Odalis Sharp MD Attending Clinician ODALIS SHARP Attending Clinician Unavailable Rosaura Quintanilla PA-C Attending Clinician Neurology Attending Clinician Unavailable Trevor Joseph DO Attending Clinician 1, [facility] Lab Attending Clinician Unavailable ABHISHEK QURESHI Attending Clinician Unavailable Michael Armstrong MD Attending Clinician Melisa Castellon Attending Clinician Abhishek Qureshi MD Attending Clinician Tereso Nguyen MD Attending Clinician Vivienne Pitts MD Attending Clinician SHAHNAZ MEDLEY Attending Clinician Unavailable Shahnaz Guerra Attending Clinician DEDRICK ROQUE Attending Clinician Unavailable Verena Bryan Attending Clinician DINORA HAMM Admitting Clinician Unavailable Kiera PIÑA, Abhishek Admitting Clinician SHAHNAZ MEDLEY Admitting Clinician Unavailable Payers Payer Name Policy Type Policy Number Effective Date Expiration Date Akanksha donahue [facility] [id number] 2020 PREFERRED GENERIC 00:00:00 [facility] [id number] 2022 PPO 00:00:00 [facility] OF [facility] [[email or web address]] [id number] 2015 OF [facility] 00:00:00 Problems Condition Condition Condition Status Onset Resolution Last Treating Co mments Source Name Details Category Date Date Treatment Clinician Date Bilateral Bilateral Disease Active Uni vers carotid carotid 4-19 ity of artery artery 00:00: [place] stenosis stenosis 00 [facility] Disease Active Unive rs discharge discharge 4-19 ity [facility] follow[facility] JONAH (acute JONAH (acute Disease Active U nivers kidney kidney 4-19 ity of injury) injury) 00:00: [place] 00 Medical Branch Tachycardi Tachycardi Disease Active U nivers a a 4-19 ity of 00:00: [place] 00 Medical Branch NIA NIA Disease Active 2021-09 Univers (obstructi (obstructi 2-12 it y of ve sleep ve sleep 00:00: [place] apnea) apnea) 00 Medical Branch Coronary Coronary Disease Active 2021-09 Unive rs artery artery 2-12 ity of disease disease 00:00: [place] involving involving 00 [facility] [place] [place] [facility] coronary coronary artery of artery of [place] heart heart without without angina angina pectoris pectoris Coronary Coronary Disease Active 2021-09 Unive rs artery artery 2-12 ity of disease disease 00:00: [place] involving involving 00 Medi [place] [facility] coronary coronary artery of artery of [place] heart heart without without angina angina pectoris [...] Added automatic ally from request for surgery [id number] Obesity Obesity Disease Active Univers (BMI (BMI 1-22 ity of 30-39.9) 30-39.9) 00:00: [place] 00 Medical Branch Stroke Stroke Disease Active Univers 1-21 ity of 00:00: [place] [facility] Type 2 Type 2 Disease Active Univers diabetes diabetes 06-19 ity of mellitus mellitus 00:00: [place] without without 00 Medical complicati complicati Br anch on, on, without without long-term long-term current current use of use of insulin insulin Leukocytos Leukocytos Disease Active U nivers is is 9-24 ity of 00:00: [place] [facility] History of History of Disease Active U nivers CVA CVA 922 ity of (cerebrova [place]cerebrova [place] sc[place]ular [place] Medical accident) accident) Bran ch Morbid Morbid Disease Active Univers obesity obesity 9-22 ity of with BMI with BMI 00:00: [place] of of 00 Medical 40.0-44.9, 40.0-44.9, Br anch adult adult Anxiety Anxiety Disease Active Univers 9-22 ity of 00:00: [place] 00 Medical Branch Essential Essential Disease Active Uni vers hypertensi hypertensi 6-10 it y of on on 00:00: [place] [facility] Hyperlipid Hyperlipid Disease Active U nivers emia with emia with 6-10 ity of target low target low [place] density density 00 Medical lipoprotei lipoprotei Br anch n (LDL) n (LDL) cholestero cholestero l less l less than 100 than 100 mg/dL mg/dL Allergies, Adverse Reactions, Alerts Allergy Allergy Status Severity Reaction(s) Onset Inactive Treating Comm ents Source Name Type Date Date Clinician NO KNOWN Drug Active Univers ALLERGIE Class ity of S [facility] Social History Social Habit Start Date Stop Date Quantity Comments Source History SDOH University o f Alcohol Frequency [place] M ed[facility] History SDAR University o f Alcohol Std [place] Medical Drinks Branch History SDAR University o f Alcohol Binge [place] [facility] al [facility] Exposure to 2023-02-08 2023-02-18 [facility] (event) Branch Alcohol intake 2023-02-18 2023-02-18 Current drinker Unive rsity of 00:00:00 00:00:00 of alcohol [facility] (finding) [place] Tobacco use and 2022-06-22 2022-06-22 Smokeless tobacco Un iversity of exposure 00:00:00 00:00:00 non-user [facility] Alcohol Comment 2019-04-23 2019-04-23 rarely Universit y of 00:00:00 00:00:00 [facility] Sex [birth year] At [birth year] Universit y of 00:00:00 00:00:00 [facility] Smoking Status Start Date Stop Date Source Never smoked tobacco [facility] Medications Ordered Filled Start Stop Current Ordering Indication Dosage Frequency Signature Comments Components Source Medication Medication Date Date Medication? Clinician (SIG) Name Name SERTraline Yes TAKE HALF Un augustine 100 mg 5-01 OF A ity of tablet 00:00: TABLET BY [place] MOUTH Medical DAILY X 1 Branch WEEK THEN TAKE 1 TABLET ONCE A DAY BY MOUTH SERTraline Yes TAKE HALF Un augustine 100 mg 5-01 OF A ity of tablet 00:00: TABLET BY [place] MOUTH Medical DAILY X 1 Branch WEEK THEN TAKE 1 TABLET ONCE A DAY BY MOUTH SERTraline Yes TAKE HALF Un [place] 100 mg 5-01 OF A ity of tablet 00:00: TABLET BY [place] [address] MOUTH Medical DAILY X 1 Branch WEEK THEN TAKE 1 TABLET ONCE A DAY BY MOUTH SERTraline Yes TAKE HALF Un augustine 100 mg 5-01 OF A ity of tablet 00:00: TABLET BY [place] MOUTH Medical DAILY X 1 Branch WEEK THEN TAKE 1 TABLET ONCE A DAY BY MOUTH SERTraline Yes TAKE HALF Un [place] 100 mg 5-01 OF A ity of tablet 00:00: TABLET BY [place] [address] MOUTH Medical DAILY X 1 Branch WEEK THEN TAKE 1 TABLET ONCE A DAY BY MOUTH SERTraline 2022-0 Yes TAKE HALF Un [place] 100 mg 5-01 OF A ity of tablet 00:00: TABLET BY [place] [facility] DAILY X 1 Branch WEEK THEN TAKE 1 TABLET ONCE A DAY BY MOUTH SERTraline 2022-0 Yes TAKE HALF Un aug[place]ine 100 mg 5-01 OF A ity of tablet 00:00: TABLET BY [place] [facility] Medical DAILY X 1 Branch WEEK THEN TAKE 1 TABLET ONCE A DAY BY MOUTH SERTraline 2022-0 Yes TAKE HALF Un [place] 100 mg 5-01 OF A ity of tablet 00:00: TABLET BY [place] [facility] Medical DAILY X 1 Branch WEEK THEN TAKE 1 TABLET ONCE A DAY BY MOUTH SERTraline 2022-0 Yes TAKE HALF Un [place] 100 mg 5-01 OF A ity of tablet 00:00: TABLET BY [place] [facility] DAILY X 1 Branch WEEK THEN TAKE 1 TABLET ONCE A DAY BY MOUTH SERTraline 2022-0 Yes TAKE HALF Un [place] 100 mg 5-01 OF A ity of tablet 00:00: TABLET BY [place] [facility] DAILY X 1 Branch WEEK THEN TAKE 1 TABLET ONCE A DAY BY MOUTH SERTraline 2022-0 Yes TAKE HALF Un [place] 100 mg 5-01 OF A ity of tablet 00:00: TABLET BY [place] [facility] DAILY X 1 Branch WEEK THEN TAKE 1 TABLET ONCE A DAY BY MOUTH SERTraline 2022-0 Yes TAKE HALF Un [place] 100 mg 5-01 OF A ity of tablet 00:00: TABLET BY [place] [facility] DAILY X 1 Branch WEEK THEN TAKE 1 TABLET ONCE A DAY BY MOUTH traZODone 3-0 Yes 50mg Take 1 Univer s 50 mg 4-27 tablet by ity of tablet 00:00: mouth at [place] [address] bedtime. Medical Branch metoprolol 3-0 Yes 25mg Take 1 Unive rs tartrate 25 4-27 tablet by ity of mg tablet 00:00: mouth in [place] [facility] the Medical morning Branch and 1 tablet in the evening. glipiZIDE 5 3-0 Yes 5mg Take 1 Univ ers mg tablet 4-27 tablet by ity o f 00:00: mouth in [place] 00 the Medical morning. Branch clopidogreL 3-0 Yes 75mg Take 1 Univ ers 75 mg 4-27 tablet by ity of tablet 00:00: mouth in [place] 00 the Medical morning. Branch atorvastati 2023-0 Yes 40mg Take 1 Univ ers n 40 mg 4-27 tablet by ity of tablet 00:00: mouth in [place] 00 the Medical morning. Branch amLODIPine 2023-0 Yes 10mg Take 1 Unive rs 10 mg 4-27 tablet by ity of tablet 00:00: mouth in [place] 00 the Medical morning. Branch traZODone 2023-0 Yes 50mg Take 1 Univer s 50 mg 4-27 tablet by ity of tablet 00:00: mouth at [place] [address] bedtime. Medical Branch metoprolol 2023-0 Yes 25mg Take 1 Unive rs tartrate 25 4-27 tablet by ity of mg tablet 00:00: mouth in [place] [facility] the Medical morning Branch and 1 tablet in the evening. glipiZIDE 5 2023-0 Yes 5mg Take 1 Univ ers mg tablet 4-27 tablet by ity o f 00:00: mouth in [place] the Medical morning. Branch clopidogreL 2023-0 Yes 75mg Take 1 Univ ers 75 mg 4-27 tablet by ity of tablet 00:00: mouth in [place] 00 the Medical morning. Branch atorvastati 2023-0 Yes 40mg Take 1 Univ ers n 40 mg 4-27 tablet by ity of tablet 00:00: mouth in [place] 00 the Medical morning. Branch amLODIPine 2023-0 Yes 10mg Take 1 Unive rs 10 mg 4-27 tablet by ity of tablet 00:00: mouth in [place] 00 the Medical morning. Branch traZODone 2023-0 Yes 50mg Take 1 Univer s 50 mg 4-27 tablet by ity of tablet 00:00: mouth at [place] [address] bedtime. Medical Branch metoprolol 2023-0 Yes 25mg Take 1 Unive rs tartrate 25 4-27 tablet by ity of mg tablet 00:00: mouth in [place] [facility] 00 the Medical morning Branch and 1 tablet in the evening. glipiZIDE 5 2023-0 Yes 5mg Take 1 Univ ers mg tablet 4-27 tablet by ity o f 00:00: mouth in [place] 00 the Medical morning. Branch clopidogreL 2023-0 Yes 75mg Take 1 Univ ers 75 mg 4-27 tablet by ity of tablet 00:00: mouth in [place] 00 the Medical morning. Branch atorvastati 2023-0 Yes 40mg Take 1 Univ ers n 40 mg 4-27 tablet by ity of tablet 00:00: mouth in [place] 00 the Medical morning. Branch amLODIPine 2023-0 Yes 10mg Take 1 Unive rs 10 mg 4-27 tablet by ity of tablet 00:00: mouth in [place] 00 the Medical morning. Branch traZODone 2023-0 Yes 50mg Take 1 Univer s 50 mg 4-27 tablet by ity of tablet 00:00: mouth at [place] [address] bedtime. Medical Branch metoprolol 2023-0 Yes 25mg Take 1 Unive rs tartrate 25 4-27 tablet by ity of mg tablet 00:00: mouth in [facility] 00 the Medical morning Branch and 1 tablet in the evening. glipiZIDE 5 2023-0 Yes 5mg Take 1 Univ ers mg tablet 4-27 tablet by ity o f 00:00: mouth in [place] 00 the Medical morning. Branch clopidogreL 2023-0 Yes 75mg Take 1 Univ ers 75 mg 4-27 tablet by ity of tablet 00:00: mouth in [place] 00 the Medical morning. Branch atorvastati 2023-0 Yes 40mg Take 1 Univ ers n 40 mg 4-27 tablet by ity of tablet 00:00: mouth in [place] 00 the Medical morning. Branch amLODIPine 2023-0 Yes 10mg Take 1 Unive rs 10 mg 4-27 tablet by ity of tablet 00:00: mouth in [place] 00 the Medical morning. Branch traZODone 2023-0 Yes 50mg Take 1 Univer s 50 mg 4-27 tablet by ity of tablet 00:00: mouth at [place] [address] bedtime. Medical Branch metoprolol 2023-0 Yes 25mg Take 1 Unive rs tartrate 25 4-27 tablet by ity of mg tablet 00:00: mouth in [facility] 00 the Medical morning Branch and 1 tablet in the evening. glipiZIDE 5 2023-0 Yes 5mg Take 1 Univ ers mg tablet 4-27 tablet by ity o f 00:00: mouth in [place] 00 the Medical morning. Branch clopidogreL 2023-0 Yes 75mg Take 1 Univ ers 75 mg 4-27 tablet by ity of tablet 00:00: mouth in [place] [address] the Medical morning. Branch atorvastati 2023-0 Yes 40mg Take 1 Univ ers n 40 mg 4-27 tablet by ity of tablet 00:00: mouth in [place] 00 the Medical morning. Branch amLODIPine 2023-0 Yes 10mg Take 1 Unive rs 10 mg 4-27 tablet by ity of tablet 00:00: mouth in [place] 00 the Medical morning. Branch traZODone 2023-0 Yes 50mg Take 1 Univer s 50 mg 4-27 tablet by ity of tablet 00:00: mouth at [place] 00 bedtime. Medical Branch metoprolol 2023-0 Yes 25mg Take 1 Unive rs tartrate 25 4-27 tablet by ity of mg tablet 00:00: mouth in [facility] 00 the Medical morning Branch and 1 tablet in the evening. glipiZIDE 5 2023-0 Yes 5mg Take 1 Univ ers mg tablet 4-27 tablet by ity o f 00:00: mouth in [place] 00 the Medical morning. Branch clopidogreL 2023-0 Yes 75mg Take 1 Univ ers 75 mg 4-27 tablet by ity of tablet 00:00: mouth in [place] 00 the Medical morning. Branch atorvastati 2023-0 Yes 40mg Take 1 Univ ers n 40 mg 4-27 tablet by ity of tablet 00:00: mouth in [place] 00 the Medical morning. Branch amLODIPine 2023-0 Yes 10mg Take 1 Unive rs 10 mg 4-27 tablet by ity of tablet 00:00: mouth in [place] 00 the Medical morning. Branch traZODone 2023-0 Yes 50mg Take 1 Univer s 50 mg 4-27 tablet by ity of tablet 00:00: mouth at [place] 00 bedtime. Medical Branch metoprolol 2023-0 Yes 25mg Take 1 Unive rs tartrate 25 4-27 tablet by ity of mg tablet 00:00: mouth in [facility] 00 the Medical morning Branch and 1 tablet in the evening. glipiZIDE 5 2023-0 Yes 5mg Take 1 Univ ers mg tablet 4-27 tablet by ity o f 00:00: mouth in [place] 00 the Medical morning. Branch clopidogreL 2023-0 Yes 75mg Take 1 Univ ers 75 mg 4-27 tablet by ity of tablet 00:00: mouth in [place] 00 the Medical morning. Branch atorvastati 2023-0 Yes 40mg Take 1 Univ ers n 40 mg 4-27 tablet by ity of tablet 00:00: mouth in [place] 00 the Medical morning. Branch amLODIPine 2023-0 Yes 10mg Take 1 Unive rs 10 mg 4-27 tablet by ity of tablet 00:00: mouth in [place] 00 the Medical morning. Branch traZODone 2023-0 Yes 50mg Take 1 Univer s 50 mg 4-27 tablet by ity of tablet 00:00: mouth at [place] [address] bedtime. Medical Branch metoprolol 2023-0 Yes 25mg Take 1 Unive rs tartrate 25 4-27 tablet by ity of mg tablet 00:00: mouth in [facility] 00 the Medical morning Branch and 1 tablet in the evening. glipiZIDE 5 2023-0 Yes 5mg Take 1 Univ ers mg tablet 4-27 tablet by ity o f 00:00: mouth in [place] 00 the Medical morning. Branch clopidogreL 2023-0 Yes 75mg Take 1 Univ ers 75 mg 4-27 tablet by ity of tablet 00:00: mouth in [place] 00 the Medical morning. Branch atorvastati 2023-0 Yes 40mg Take 1 Univ ers n 40 mg 4-27 tablet by ity of tablet 00:00: mouth in [place] 00 the Medical morning. Branch amLODIPine 2023-0 Yes 10mg Take 1 Unive rs 10 mg 4-27 tablet by ity of tablet 00:00: mouth in [place] 00 the Medical morning. Branch traZODone 2023-0 Yes 50mg Take 1 Univer s 50 mg 4-27 tablet by ity of tablet 00:00: mouth at [place] [address] bedtime. Medical Branch metoprolol 2023-0 Yes 25mg Take 1 Unive rs tartrate 25 4-27 tablet by ity of mg tablet 00:00: mouth in [facility] 00 the Medical morning Branch and 1 tablet in the evening. glipiZIDE 5 2023-0 Yes 5mg Take 1 Univ ers mg tablet 4-27 tablet by ity o f 00:00: mouth in [place] 00 the Medical morning. Branch clopidogreL 2023-0 Yes 75mg Take 1 Univ ers 75 mg 4-27 tablet by ity of tablet 00:00: mouth in [place] 00 the Medical morning. Branch atorvastati 2023-0 Yes 40mg Take 1 Univ ers n 40 mg 4-27 tablet by ity of tablet 00:00: mouth in [place] 00 the Medical morning. Branch amLODIPine 2023-0 Yes 10mg Take 1 Unive rs 10 mg 4-27 tablet by ity of tablet 00:00: mouth in [place] 00 the Medical morning. Branch traZODone 2023-0 Yes 50mg Take 1 Univer s 50 mg 4-27 tablet by ity of tablet 00:00: mouth at [place] [address] bedtime. Medical Branch metoprolol 2023-0 Yes 25mg Take 1 Unive rs tartrate 25 4-27 tablet by ity of mg tablet 00:00: mouth in [place] [facility] 00 the Medical morning Branch and 1 tablet in the evening. glipiZIDE 5 2023-0 Yes 5mg Take 1 Univ ers mg tablet 4-27 tablet by ity o f 00:00: mouth in [place] the Medical morning. Branch clopidogreL 2023-0 Yes 75mg Take 1 Univ ers 75 mg 4-27 tablet by ity of tablet 00:00: mouth in [place] [address] the Medical morning. Branch atorvastati 2023-0 Yes 40mg Take 1 Univ ers n 40 mg 4-27 tablet by ity of tablet 00:00: mouth in [place] the Medical morning. Branch amLODIPine 2023-0 Yes 10mg Take 1 Unive rs 10 mg 4-27 tablet by ity of tablet 00:00: mouth in [place] the Medical morning. Branch traZODone 2023-0 Yes 50mg Take 1 Univer s 50 mg 4-27 tablet by ity of tablet 00:00: mouth at [place] [address] bedtime. Medical Branch metoprolol 2023-0 Yes 25mg Take 1 Unive rs tartrate 25 4-27 tablet by ity of mg tablet 00:00: mouth in [facility] the Medical morning Branch and 1 tablet in the evening. glipiZIDE 5 2023-0 Yes 5mg Take 1 Univ ers mg tablet 4-27 tablet by ity o f 00:00: mouth in [place] the Medical morning. Branch clopidogreL 2023-0 Yes 75mg Take 1 Univ ers 75 mg 4-27 tablet by ity of tablet 00:00: mouth in [place] [address] the Medical morning. Branch atorvastati 2023-0 Yes 40mg Take 1 Univ ers n 40 mg 4-27 tablet by ity of tablet 00:00: mouth in [place] [address] the Medical morning. Branch amLODIPine 2023-0 Yes 10mg Take 1 Unive rs 10 mg 4-27 tablet by ity of tablet 00:00: mouth in [place] 00 the Medical morning. Branch traZODone 3-0 Yes 50mg Take 1 Univer s 50 mg 4-27 tablet by ity of tablet 00:00: mouth at [place] 00 bedtime. Medical Branch metoprolol 3-0 Yes 25mg Take 1 Unive rs tartrate 25 4-27 tablet by ity of mg tablet 00:00: mouth in [place] [facility] 00 the Medical morning Branch and 1 tablet in the evening. glipiZIDE 5 3-0 Yes 5mg Take 1 Univ ers mg tablet 4-27 tablet by ity o f 00:00: mouth in [place] the Medical morning. Branch clopidogreL 3-0 Yes 75mg Take 1 Univ ers 75 mg 4-27 tablet by ity of tablet 00:00: mouth in [place] the Medical morning. Branch atorvastati 3-0 Yes 40mg Take 1 Univ ers n 40 mg 4-27 tablet by ity of tablet 00:00: mouth in [place] the Medical morning. Branch amLODIPine 3-0 Yes 10mg Take 1 Unive rs 10 mg 4-27 tablet by ity of tablet 00:00: mouth in [place] the Medical morning. Branch buPROPion 3-0 Yes 150mg Take 1 Unive rs XL 150 mg 3-23 tablet by ity o f 24 hr 00:00: mouth in [place] tablet 00 the Medical morning. Branch buPROPion 3-0 Yes 150mg Take 1 Unive rs XL 150 mg 3-23 tablet by ity o f 24 hr 00:00: mouth in [place] tablet 00 the Medical morning. Branch buPROPion 2023-0 Yes 150mg Take 1 Unive rs XL 150 mg 3-23 tablet by ity o f 24 hr 00:00: mouth in [place] tablet 00 the Medical morning. Branch buPROPion 2023-0 Yes 150mg Take 1 Unive rs XL 150 mg 3-23 tablet by ity o f 24 hr 00:00: mouth in [place] tablet 00 the Medical morning. Branch buPROPion 2023-0 Yes 150mg Take 1 Unive rs XL 150 mg 3-23 tablet by ity o f 24 hr 00:00: mouth in [place] tablet 00 the Medical morning. Branch buPROPion 2023-0 Yes 150mg Take 1 Unive rs XL 150 mg 3-23 tablet by ity o f 24 hr 00:00: mouth in [place] tablet 00 the Medical morning. Branch buPROPion 2023-0 Yes 150mg Take 1 Unive rs XL 150 mg 3-23 tablet by ity o f 24 hr 00:00: mouth in [place] tablet 00 the Medical morning. Branch buPROPion 2023-0 Yes 150mg Take 1 Unive rs XL 150 mg 3-23 tablet by ity o f 24 hr 00:00: mouth in [place] tablet 00 the Medical morning. Branch buPROPion 2023-0 Yes 150mg Take 1 Unive rs XL 150 mg 3-23 tablet by ity o f 24 hr 00:00: mouth in [place] tablet 00 the Medical morning. Branch buPROPion 2023-0 Yes 150mg Take 1 Unive rs XL 150 mg 3-23 tablet by ity o f 24 hr 00:00: mouth in [place] tablet 00 the Medical morning. Branch buPROPion 2023-0 Yes 150mg Take 1 Unive rs XL 150 mg 3-23 tablet by ity o f 24 hr 00:00: mouth in [place] tablet 00 the Medical morning. Branch buPROPion 2023-0 Yes 150mg Take 1 Unive rs XL 150 mg 3-23 tablet by ity o f 24 hr 00:00: mouth in [place] tablet 00 the Medical morning. Branch ACCU-CHEK 2023-0 Yes [id number] USE U nivers GUIDE TEST 1-25 DIRECTED. ity of STRIPS 00:00: TAKE [place] strip 00 GLUCOSE Medical 1-2 TIMES Branch DAILY ACCU-CHEK 2023-0 Yes [id number] USE U nivers GUIDE TEST 1-25 DIRECTED. ity of STRIPS 00:00: TAKE [place] strip 00 GLUCOSE Medical 1-2 TIMES Branch DAILY ACCU-CHEK 2023-0 Yes [id number] USE U nivers GUIDE TEST 1-25 DIRECTED. ity of STRIPS 00:00: TAKE [place] strip 00 GLUCOSE Medical 1-2 TIMES Branch DAILY ACCU-CHEK 2023-0 Yes [id number] USE U nivers GUIDE TEST 1-25 DIRECTED. ity of STRIPS 00:00: TAKE [place] strip 00 GLUCOSE Medical 1-2 TIMES Branch DAILY ACCU-CHEK 2023-0 Yes [id number] USE U nivers GUIDE TEST 1-25 DIRECTED. ity of STRIPS 00:00: TAKE [place] strip 00 GLUCOSE Medical 1-2 TIMES Branch DAILY ACCU-CHEK 2023-0 Yes [id number] USE U nivers GUIDE TEST 1-25 DIRECTED. ity of STRIPS 00:00: TAKE [place] strip 00 GLUCOSE Medical 1-2 TIMES Branch DAILY ACCU-CHEK 2023-0 Yes [id number] USE U nivers GUIDE TEST 1-25 DIRECTED. ity of STRIPS 00:00: TAKE [place] strip 00 GLUCOSE Medical 1-2 TIMES Branch DAILY ACCU-CHEK 2023-0 Yes [id number] USE U nivers GUIDE TEST 1-25 DIRECTED. ity of STRIPS 00:00: TAKE [place] strip 00 GLUCOSE Medical 1-2 TIMES Branch DAILY ACCU-CHEK 2023-0 Yes [id number] USE U nivers GUIDE TEST 1-25 DIRECTED. ity of STRIPS 00:00: TAKE [place] strip 00 GLUCOSE Medical 1-2 TIMES Branch DAILY ACCU-CHEK 2023-0 Yes [id number] USE U nivers GUIDE TEST 1-25 DIRECTED. ity of STRIPS 00:00: TAKE [place] strip 00 GLUCOSE Medical 1-2 TIMES Branch DAILY ACCU-CHEK 2023-0 Yes [id number] USE U nivers GUIDE TEST 1-25 DIRECTED. ity of STRIPS 00:00: TAKE [place] strip 00 GLUCOSE Medical 1-2 TIMES Branch DAILY ACCU-CHEK 2023-0 Yes [id number] USE U nivers GUIDE TEST 1-25 DIRECTED. ity of STRIPS 00:00: TAKE [place] strip 00 GLUCOSE Medical 1-2 TIMES Branch DAILY ACCU-CHEK 2023-0 Yes [id number] USE U nivers GUIDE TEST 1-25 DIRECTED. ity of STRIPS 00:00: TAKE [place] strip 00 GLUCOSE Medical 1-2 TIMES Branch DAILY ACCU-CHEK 2023-0 Yes [id number] USE U nivers GUIDE TEST 1-25 DIRECTED. ity of STRIPS 00:00: TAKE [place] strip 00 GLUCOSE Medical 1-2 TIMES Branch DAILY ACCU-CHEK 2023-0 Yes [id number] USE [facility] nivers GUIDE TEST 1-25 DIRECTED. ity of STRIPS 00:00: TAKE [place] strip 00 GLUCOSE Medical 1-2 TIMES Branch DAILY ACCU-CHEK 2023-0 Yes [id number] USE U nivers GUIDE TEST 1-25 DIRECTED. ity of STRIPS 00:00: TAKE [place] strip 00 GLUCOSE Medical 1-2 TIMES Branch DAILY ACCU-CHEK 2023-0 Yes [id number] USE U nivers GUIDE TEST 1-25 DIRECTED. ity of STRIPS 00:00: TAKE [place] strip 00 GLUCOSE Medical 1-2 TIMES Branch DAILY ACCU-CHEK 2023-0 Yes [id number] USE U nivers GUIDE TEST 1-25 DIRECTED. ity of STRIPS 00:00: TAKE [place] strip 00 GLUCOSE Medical 1-2 TIMES Branch DAILY ACCU-CHEK 2023-0 Yes [id number] USE U nivers GUIDE TEST 1-25 DIRECTED. ity of STRIPS 00:00: TAKE [place] strip 00 GLUCOSE Medical 1-2 TIMES Branch DAILY ACCU-CHEK 2023-0 Yes [id number] USE U nivers GUIDE TEST 1-25 DIRECTED. ity of STRIPS 00:00: TAKE [place] strip 00 GLUCOSE Medical 1-2 TIMES Branch DAILY ACCU-CHEK 2023-0 Yes [id number] USE U nivers GUIDE TEST 1-25 DIRECTED. ity of STRIPS 00:00: TAKE [place] strip 00 GLUCOSE Medical 1-2 TIMES Branch DAILY ACCU-CHEK 2023-0 Yes [id number] USE U nivers GUIDE TEST 1-25 DIRECTED. ity of STRIPS 00:00: TAKE [place] strip 00 GLUCOSE Medical 1-2 TIMES Branch DAILY ACCU-CHEK 2023-0 Yes [id number] USE U nivers GUIDE TEST 1-25 DIRECTED. ity of STRIPS 00:00: TAKE [place] strip 00 GLUCOSE Medical 1-2 TIMES Branch DAILY ACCU-CHEK 2023-0 Yes [id number] USE U nivers GUIDE TEST 1-25 DIRECTED. ity of STRIPS 00:00: TAKE [place] strip 00 GLUCOSE Medical 1-2 TIMES Branch DAILY ACCU-CHEK 2023-0 Yes [id number] USE U nivers GUIDE TEST 1-25 DIRECTED. ity of STRIPS 00:00: TAKE [place] strip 00 GLUCOSE Medical 1-2 TIMES Branch DAILY blood sugar 2021-09 Yes [id number] Use as [facility] diagnostic 11-04 directed. ity of (ACCU-CHEK 00:00: Take [place] GUIDE TEST 00 glucose Medica l STRIPS) 1-2 times Branch strip daily glimepiride 2021-09 Yes [id number] 1mg Take 1 [facility] 1 mg tablet 11-04 tablet by ity of 00:00: mouth [place] 00 daily with Medical breakfast. Branch blood sugar 2021-09 Yes [id number] Use as [facility] diagnostic 2-09 directed. ity of (ACCU-CHEK 00:00: Take [place] GUIDE TEST 00 glucose Medica l STRIPS) 1-2 times Branch strip daily glimepiride 2021-09 Yes [id number] 1mg Take 1 [facility] 1 mg tablet 2-09 tablet by ity of 00:00: mouth [place] 00 daily with Medical breakfast. Branch blood sugar 2021-09 Yes [id number] Use as [facility] diagnostic 2-09 directed. ity of (ACCU-CHEK 00:00: Take [place] GUIDE TEST 00 glucose Medica l STRIPS) 1-2 times Branch strip daily glimepiride 2021-09 Yes [id number] 1mg Take 1 [facility] 1 mg tablet 2-09 tablet by ity of 00:00: mouth [place] 00 daily with Medical breakfast. Branch blood sugar 2021-09 Yes [id number] Use as [facility] diagnostic 2-09 directed. ity of (ACCU-CHEK 00:00: Take [place] GUIDE TEST 00 glucose Medica l STRIPS) 1-2 times Branch strip daily glimepiride 2021-09 Yes [id number] 1mg Take 1 [facility] 1 mg tablet 2-09 tablet by ity of 00:00: mouth [place] 00 daily with Medical breakfast. Branch blood sugar 2021-09 Yes [id number] Use as [facility] diagnostic 2-09 directed. ity of (ACCU-CHEK 00:00: Take [place] GUIDE TEST 00 glucose Medica l STRIPS) 1-2 times Branch strip daily glimepiride 2021-09 Yes [id number] 1mg Take 1 [facility] 1 mg tablet 2-09 tablet by ity of 00:00: mouth [place] 00 daily with Medical breakfast. Branch blood sugar 2021-09 Yes [id number] Use as [facility] diagnostic 2-09 directed. ity of (ACCU-CHEK 00:00: Take [place] GUIDE TEST 00 glucose Medica l STRIPS) 1-2 times Branch strip daily glimepiride 2021-09 Yes [id number] 1mg Take 1 [facility] 1 mg tablet 2-09 tablet by ity of 00:00: mouth [place] 00 daily with Medical breakfast. Branch blood sugar 2021-09 Yes [id number] Use as [facility] diagnostic 2-09 directed. ity of (ACCU-CHEK 00:00: Take [place] GUIDE TEST 00 glucose Medica l STRIPS) 1-2 times Branch strip daily glimepiride 2021-09 Yes [id number] 1mg Take 1 [facility] 1 mg tablet 2-09 tablet by ity of 00:00: mouth [place] 00 daily with Medical breakfast. [place] blood sugar 2021-09 Yes [id number] Use as [facility] diagnostic 2-09 directed. ity of (ACCU-CHEK 00:00: Take [place] GUIDE TEST 00 glucose Medica l STRIPS) 1-2 times Branch strip daily glimepiride 2021-09 Yes [id number] 1mg Take 1 [facility] 1 mg tablet 2-09 tablet by ity of 00:00: mouth [place] 00 daily with Medical breakfast. [place] glimepiride 2021-09 Yes [id number] 1mg Take 1 [facility] 1 mg tablet 2-09 tablet by ity of 00:00: mouth [place] 00 daily with Medical breakfast. [place] glimepiride 2021-09 Yes [id number] 1mg Take 1 [facility] 1 mg tablet 2-09 tablet by ity of 00:00: mouth [place] 00 daily with Medical breakfast. [place] glimepiride 2021-09 Yes [id number] 1mg Take 1 [facility] 1 mg tablet 2-09 tablet by ity of 00:00: mouth [place] 00 daily with Medical breakfast. [place] glimepiride 2021-09 Yes [id number] 1mg Take 1 [facility] 1 mg tablet 2-09 tablet by ity of 00:00: mouth [place] 00 daily with Medical breakfast. [place] glimepiride 2021-09 Yes [id number] 1mg Take 1 [facility] 1 mg tablet 2-09 tablet by ity of 00:00: mouth [place] 00 daily with Medical breakfast. [place] glimepiride 2021-09 Yes [id number] 1mg Take 1 [facility] 1 mg tablet 2-09 tablet by ity of 00:00: mouth [place] 00 daily with Medical breakfast. [place] glimepiride 2021-09 Yes [id number] 1mg Take 1 [facility] 1 mg tablet 2-09 tablet by ity of 00:00: mouth [place] 00 daily with Medical breakfast. [place] glimepiride 2021-09 Yes [id number] 1mg Take 1 [facility] 1 mg tablet 2-09 tablet by ity of 00:00: mouth [place] 00 daily with Medical breakfast. [place] glimepiride 2021-09 Yes [id number] 1mg Take 1 [facility] 1 mg tablet 2-09 tablet by ity of 00:00: mouth [place] 00 daily with Medical breakfast. [place] glimepiride 2021-09 Yes [id number] 1mg Take 1 [facility] 1 mg tablet 2-09 tablet by ity of 00:00: mouth [place] 00 daily with Medical breakfast. Branch glimepiride 2021-09 Yes [id number] 1mg Take 1 [facility] 1 mg tablet 2-09 tablet by ity of 00:00: mouth [place] 00 daily with Medical breakfast. Branch glimepiride 2021-09 Yes [id number] 1mg Take 1 [facility] 1 mg tablet 2-09 tablet by ity of 00:00: mouth [place] 00 daily with Medical breakfast. Branch glimepiride 2021-09 Yes [id number] 1mg Take 1 [facility] 1 mg tablet 2-09 tablet by ity of 00:00: mouth [place] 00 daily with Medical breakfast. [place] glimepiride 2021-09- No [id number] 1mg Take 1 [facility] 1 mg tablet 2-09 05-09 tablet by it y of 00:00: 00:00 mouth [place] 00 :00 daily with Medical breakfast. [place] glimepiride 2021-09- No [id number] 1mg Take 1 [facility] 1 mg tablet 2-09 05-09 tablet by it y of 00:00: 00:00 mouth [place] 00 :00 daily with Medical breakfast. [place] blood sugar 2021-09- No [id number] Use as [facility] diagnostic 11-04 directed. ity of (ACCU-CHEK 00:00: 00:00 Take [place] GUIDE TEST 00 :00 glucose Medica l STRIPS) 1-2 times Branch strip daily aspirin 2021-09- No [id number] 81mg Take 1 [facility] mg chewable 2- 12-05 tablet by it y of tablet 00:00: 05:59 mouth in [place] 00 :00 the Medical morning. [place] aspirin 81 2021-09- No [id number] 81mg Take 1 [facility] mg chewable 2-04 12-05 tablet by it y of tablet 00:00: 05:59 mouth in [place] 00 :00 the Medical morning. [place] aspirin 81 2021-09- No [id number] 81mg Take 1 [facility] mg chewable 2-04 - tablet by it y of tablet 00:00: 05:59 mouth in [place] 00 :00 the Medical morning. Branch aspirin 81 2021-09- No [id number] 81mg Take 1 [facility] mg chewable 2-04 12-05 tablet by it y of tablet 00:00: 05:59 mouth in [place] 00 :00 the Medical morning. Branch aspirin 81 2021-09- No [id number] 81mg Take 1 [facility] mg chewable 2-04 12-05 tablet by it y of tablet 00:00: 05:59 mouth in [place] 00 :00 the Medical morning. Branch aspirin 81 2021-09- No [id number] 81mg Take 1 [facility] mg chewable 2-04 12-05 tablet by it y of tablet 00:00: 05:59 mouth in [place] 00 :00 the Medical morning. Branch aspirin 81 2021-2022- No [id number] 81mg Take 1 [facility] mg chewable 2-04 12-05 tablet by it y of tablet 00:00: 05:59 mouth in [place] 00 :00 the Medical morning. Branch aspirin 81 2021-09- No [id number] 81mg Take 1 [facility] mg chewable 2-04 12-05 tablet by it y of tablet 00:00: 05:59 mouth in [place] 00 :00 the Medical morning. Branch aspirin 81 2021-09- No [id number] 81mg Take 1 [facility] mg chewable 2-04 12-05 tablet by it y of tablet 00:00: 05:59 mouth in [place] 00 :00 the Medical morning. Branch aspirin 81 2021-09- No [id number] 81mg Take 1 [facility] mg chewable 2-04 12-05 tablet by it y of tablet 00:00: 05:59 mouth in [place] 00 :00 the Medical morning. Branch aspirin 81 2021-09- No [id number] 81mg Take 1 [facility] mg chewable 2-04 12-05 tablet by it y of tablet 00:00: 05:59 mouth in [place] 00 :00 the Medical morning. Branch aspirin 81 2021-2022- No [id number] 81mg Take 1 [facility] mg chewable 2-04 12-05 tablet by it y of tablet 00:00: 05:59 mouth in [place] 00 :00 the Medical morning. Branch aspirin 81 2021-09- No [id number] 81mg Take 1 [facility] mg chewable 2-04 12-05 tablet by it y of tablet 00:00: 05:59 mouth in [place] 00 :00 the Medical morning. Branch aspirin 81 2021-2022- No [id number] 81mg Take 1 [facility] mg chewable 2-04 12-05 tablet by it y of tablet 00:00: 05:59 mouth in [place] 00 :00 the Medical morning. Branch aspirin 81 2021-2022- No [id number] 81mg Take 1 [facility] mg chewable 2-04 12-05 tablet by it y of tablet 00:00: 05:59 mouth in [place] 00 :00 the Medical morning. Branch aspirin 81 2021-2022- No [id number] 81mg Take 1 [facility] mg chewable 2-04 12-05 tablet by it y of tablet 00:00: 05:59 mouth in [place] 00 :00 the Medical morning. Branch aspirin 81 2021-2022- No [id number] 81mg Take 1 [facility] mg chewable 2-04 12-05 tablet by it y of tablet 00:00: 05:59 mouth in [place] 00 :00 the Medical morning. Branch aspirin 81 2021-09- No [id number] 81mg Take 1 [facility] mg chewable 2-04 12-05 tablet by it y of tablet 00:00: 05:59 mouth in [place] 00 :00 the Medical morning. Branch aspirin 81 2021-09- No [id number] 81mg Take 1 [facility] mg chewable 2-04 12-05 tablet by it y of tablet 00:00: 05:59 mouth in [place] 00 :00 the Medical morning. Branch aspirin 81 2021-2022- No [id number] 81mg Take 1 [facility] mg chewable 2-04 12-05 tablet by it y of tablet 00:00: 05:59 mouth in [place] 00 :00 the Medical morning. Branch aspirin 81 2021-09- No [id number] 81mg Take 1 [facility] mg chewable 2-04 12-05 tablet by it y of tablet 00:00: 05:59 mouth in [place] 00 :00 the Medical morning. Branch aspirin 81 2021-2022- No [id number] 81mg Take 1 [facility] mg chewable 2-04 12-05 tablet by it y of tablet 00:00: 05:59 mouth in [place] 00 :00 the Medical morning. Branch aspirin 81 2021-2022- No [id number] 81mg Take 1 [facility] mg chewable 2-04 12-05 tablet by it y of tablet 00:00: 05:59 mouth in [place] 00 :00 the Medical morning. Branch aspirin 81 2021-09- No [id number] 81mg Take 1 [facility] mg chewable 2-04 12-05 tablet by it y of tablet 00:00: 05:59 mouth in [place] 00 :00 the Medical morning. Branch aspirin 81 2021-09- No [id number] 81mg Take 1 [facility] mg chewable 2-04 12-05 tablet by it y of tablet 00:00: 05:59 mouth in [place] 00 :00 the Medical morning. Branch aspirin 81 2021-09- No [id number] 81mg Take 1 [facility] mg chewable 2-04 12-05 tablet by it y of tablet 00:00: 05:59 mouth in [place] 00 :00 the Medical morning. Branch aspirin 81 2021-09- No [id number] 81mg Take 1 [facility] mg chewable 2-04 12-05 tablet by it y of tablet 00:00: 05:59 mouth in [place] 00 :00 the Medical morning. Branch aspirin 81 2021-09- No [id number] 81mg Take 1 [facility] mg chewable 2-04 12-05 tablet by it y of tablet 00:00: 05:59 mouth in [place] 00 :00 the Medical morning. Branch aspirin 81 2021-09- No [id number] 81mg Take 1 [facility] mg chewable 2-04 12-05 tablet by it y of tablet 00:00: 05:59 mouth in [place] 00 :00 the Medical morning. Branch aspirin 81 2021-09- No [id number] 81mg Take 1 [facility] mg chewable 2-04 12-05 tablet by it y of tablet 00:00: 05:59 mouth in [place] 00 :00 the Medical morning. Branch aspirin 81 2021-09- No [id number] 81mg Take 1 [facility] mg chewable 2-04 12-05 tablet by it y of tablet 00:00: 05:59 mouth in [place] 00 :00 the Medical morning. Branch aspirin 81 2021-09- No [id number] 81mg Take 1 [facility] mg chewable 2-04 12-05 tablet by it y of tablet 00:00: 05:59 mouth in [place] 00 :00 the Medical morning. Branch aspirin 81 2021-09- No [id number] 81mg Take 1 [facility] mg chewable 10-30 tablet by it y of tablet 00:00: 05:59 mouth in [place] 00 :00 the Medical morning. Branch aspirin 81 2021-09- No [id number] 81mg Take 1 [facility] mg chewable 10-30 tablet by it y of tablet 00:00: 05:59 mouth in [place] 00 :00 the Medical morning. Branch aspirin 81 2021-09- No [id number] 81mg Take 1 [facility] mg chewable 10-30 tablet by it y of tablet 00:00: 05:59 mouth in [place] 00 :00 the Medical morning. Branch carvediloL 2021-09 Yes 12.5mg 12.5 mg, U [...] Yes 10mg 10 mg, Unive rs (NORVASC) 2 Oral, ity of tablet 10 11:15: Q24H, [place] mg 00 First dose Medical (after Branch last modificati on) on 08/28/22 at 0515, Until Discontinu ed, Routine amLODIPine 2021-09 No 10mg 10 mg, Univ ers (NORVASC) 10-29 12 Oral, ity of tablet 10 11:15: 22:49 Q24H, [place] mg 00 :38 First dose Medical (after Branch last modificati on) on 08/28/22 at 0515, Until Discontinu ed, Routine atorvastati 2021-09 Yes 80mg 80 mg, Univ ers n (LIPITOR) 2 Oral, QHS, it y of tablet 80 03:00: First dose [place] mg 00 on Fri Medical 08/27/22 at Branch 2100, Until Discontinu ed, Routine atorvastati 2021-09- No 80mg 80 mg, Uni vers n (LIPITOR) 10-2903 Oral, QHS, i ty of tablet 80 03:00: 22:49 First dose [place] mg 00 :38 on Fri Medical 08/27/22 at Branch 2100, Until Discontinu ed, Routine nitroglycer 2021-[id number] 1 [facility] in 0.4 mg 2-03 tablet ity of sublingual 00:00: under the [place] tablet 00 tongue Medical every 5 Branch (five) minutes as needed for Chest pain. Blood-Gluco 2021-09 Yes [id number] Use as [facility] se Meter 2-03 directed ity of (ACCU-CHEK 00:00: [place] GUIDE 00 Medical GLUCOSE Branch METER) [facility] blood sugar 2021-09 Yes [id number] Use as [facility] diagnostic 2-03 directed ity o f (ACCU-CHEK 00:00: [place] GUIDE TEST 00 Medical STRIPS) Branch strip lancets 33 2021-09 Yes [id number] Use as U nivers gauge [facility] 2-03 directed ity o f 00:00: [place] 00 Medical Branch nitroglycer 2021-[id number] 1 [facility] in 0.4 mg 2-03 tablet ity of sublingual 00:00: under the [place] tablet 00 tongue Medical every 5 Branch (five) minutes as needed for Chest pain. Blood-Gluco 2021-09 Yes [id number] Use as [facility] se Meter 2-03 directed ity of (ACCU-CHEK 00:00: [place] GUIDE 00 Medical GLUCOSE Branch METER) [facility] blood sugar 2021-09 Yes [id number] Use as [facility] diagnostic 2-03 directed ity o f (ACCU-CHEK 00:00: [place] GUIDE TEST 00 Medical STRIPS) Branch strip lancets 2021-09 Yes [id number] Use as U nivers gauge Misc 2-03 directed ity o f 00:00: [place] 00 Medical Branch nitroglycer 2021-[id number] 1 [facility] in 0.4 mg 2-03 tablet ity of sublingual 00:00: under the [place] tablet 00 tongue Medical every 5 Branch (five) minutes as needed for Chest pain. Blood-Gluco 2021-09 Yes [id number] Use as [facility] se Meter 2-03 directed ity of (ACCU-CHEK 00:00: [place] GUIDE 00 Medical GLUCOSE Branch METER) [facility] 2021-09 Yes [id number] Use as U nivers gauge Misc 2-03 directed ity o f 00:00: [place] 00 Medical Branch nitroglycer 2021-[id number] 1 [facility] in 0.4 mg 2-03 tablet ity of sublingual 00:00: under the [place] tablet 00 tongue Medical every 5 Branch (five) minutes as needed for Chest pain. Blood-Gluco 2021-09 Yes [id number] Use as [facility] se Meter 2-03 directed ity of (ACCU-CHEK 00:00: [place] GUIDE 00 Medical GLUCOSE Branch METER) Misc lancets 2021-09 Yes [id number] Use as U nivers gauge Misc 2-03 directed ity o f 00:00: [place] 00 Medical Branch nitroglycer 2021-[id number] 1 [facility] in 0.4 mg 2-03 tablet ity of sublingual 00:00: under the [place] tablet 00 tongue Medical every 5 Branch (five) minutes as needed for Chest pain. Blood-Gluco 2021-09 Yes [id number] Use as [facility] se Meter 2-03 directed ity of (ACCU-CHEK 00:00: [place] GUIDE 00 Medical GLUCOSE Branch METER) Misc lancets 2021-09 Yes [id number] Use as U nivers gauge Misc 2-03 directed ity o f 00:00: [place] 00 Medical Branch nitroglycer 2021-[id number] 1 [facility] in 0.4 mg 2-03 tablet ity of sublingual 00:00: under the [place] tablet 00 tongue Medical every 5 Branch (five) minutes as needed for Chest pain. Blood-Gluco 2021-09 Yes [id number] Use as [facility] se Meter 2-03 directed ity of (ACCU-CHEK 00:00: [place] GUIDE 00 Medical GLUCOSE Branch METER) Misc lancets 2021-09 Yes [id number] Use as U nivers gauge Misc 2-03 directed ity o f 00:00: [place] 00 Medical Branch nitroglycer 2021-[id number] 1 [facility] in 0.4 mg 2-03 tablet ity of sublingual 00:00: under the [place] tablet 00 tongue Medical every 5 Branch (five) minutes as needed for Chest pain. Blood-Gluco 2021-09 Yes [id number] Use as [facility] se Meter 2-03 directed ity of (ACCU-CHEK 00:00: [place] GUIDE 00 Medical GLUCOSE Branch METER) Misc lancets 2021-09 Yes [id number] Use as U nivers gauge Misc 2-03 directed ity o f 00:00: [place] 00 Medical Branch nitroglycer 2021-[id number] 1 [facility] in 0.4 mg 2-03 tablet ity of sublingual 00:00: under the [place] tablet 00 tongue Medical every 5 Branch (five) minutes as needed for Chest pain. Blood-Gluco 2021-09 Yes [id number] Use as [facility] se Meter 2-03 directed ity of (ACCU-CHEK 00:00: [place] GUIDE 00 Medical GLUCOSE Branch METER) Misc lancets 2021-09 Yes [id number] Use as U nivers gauge Misc 2-03 directed ity o f 00:00: [place] 00 Medical Branch nitroglycer 2021-[id number] 1 [facility] in 0.4 mg 2-03 tablet ity of sublingual 00:00: under the [place] tablet 00 tongue Medical every 5 Branch (five) minutes as needed for Chest pain. Blood-Gluco 2021-09 Yes [id number] Use as [facility] se Meter 2-03 directed ity of (ACCU-CHEK 00:00: [place] GUIDE 00 Medical GLUCOSE Branch METER) Misc lancets 2021-09 Yes [id number] Use as U nivers gauge Misc 2-03 directed ity o f 00:00: [place] 00 Medical Branch nitroglycer 2021-[id number] 1 [facility] in 0.4 mg 2-03 tablet ity of sublingual 00:00: under the [place] tablet 00 tongue Medical every 5 Branch (five) minutes as needed for Chest pain. Blood-Gluco 2021-09 Yes [id number] Use as [facility] se Meter 2-03 directed ity of (ACCU-CHEK 00:00: [place] GUIDE 00 Medical GLUCOSE Branch METER) Misc lancets 2021-09 Yes [id number] Use as U nivers gauge Misc 2-03 directed ity o f 00:00: [place] 00 Medical Branch nitroglycer 2021-[id number] 1 [facility] in 0.4 mg 2-03 tablet ity of sublingual 00:00: under the [place] tablet 00 tongue Medical every 5 Branch (five) minutes as needed for Chest pain. Blood-Gluco 2021-09 Yes [id number] Use as [facility] se Meter 2-03 directed ity of (ACCU-CHEK 00:00: [place] GUIDE 00 Medical GLUCOSE Branch METER) Misc lancets 2021-09 Yes [id number] Use as U nivers gauge Misc 2-03 directed ity o f 00:00: [place] 00 Medical Branch nitroglycer 2021-[id number] 1 [facility] in 0.4 mg 2-03 tablet ity of sublingual 00:00: under the [place] tablet 00 tongue Medical every 5 Branch (five) minutes as needed for Chest pain. Blood-Gluco 2021-09 Yes [id number] Use as [facility] se Meter 2-03 directed ity of (ACCU-CHEK 00:00: [place] GUIDE 00 Medical GLUCOSE Branch METER) Misc lancets 2021-09 Yes [id number] Use as U nivers gauge Misc 2-03 directed ity o f 00:00: [place] 00 Medical Branch nitroglycer 2021-[id number] 1 [facility] in 0.4 mg 2-03 tablet ity of sublingual 00:00: under the [place] tablet 00 tongue Medical every 5 Branch (five) minutes as needed for Chest pain. Blood-Gluco 2021-09 Yes [id number] Use as [facility] se Meter 2-03 directed ity of (ACCU-CHEK 00:00: [place] GUIDE 00 Medical GLUCOSE Branch METER) Misc lancets 2021-09 Yes [id number] Use as U nivers gauge Misc 2-03 directed ity o f 00:00: [place] 00 Medical Branch nitroglycer 2021-[id number] 1 [facility] in 0.4 mg 2-03 tablet ity of sublingual 00:00: under the [place] tablet 00 tongue Medical every 5 Branch (five) minutes as needed for Chest pain. Blood-Gluco 2021-09 Yes [id number] Use as [facility] se Meter 2-03 directed ity of (ACCU-CHEK 00:00: [place] GUIDE 00 Medical GLUCOSE Branch METER) Misc lancets 2021-09 Yes [id number] Use as U nivers gauge Misc 2-03 directed ity o f 00:00: [place] 00 Medical Branch nitroglycer 2021-[id number] 1 [facility] in 0.4 mg 2-03 tablet ity of sublingual 00:00: under the [place] tablet 00 tongue Medical every 5 Branch (five) minutes as needed for Chest pain. Blood-Gluco 2021-09 Yes [id number] Use as [facility] se Meter 2-03 directed ity of (ACCU-CHEK 00:00: [place] GUIDE 00 Medical GLUCOSE Branch METER) Misc lancets 2021-09 Yes [id number] Use as U nivers gauge Misc 2-03 directed ity o f 00:00: [place] 00 Medical Branch nitroglycer 2021-[id number] 1 [facility] in 0.4 mg 2-03 tablet ity of sublingual 00:00: under the [place] tablet 00 tongue Medical every 5 Branch (five) minutes as needed for Chest pain. Blood-Gluco 2021-09 Yes [id number] Use as [facility] se Meter 2-03 directed ity of (ACCU-CHEK 00:00: [place] GUIDE 00 Medical GLUCOSE Branch METER) Misc lancets 2021-09 Yes [id number] Use as U nivers gauge Misc 2-03 directed ity o f 00:00: [place] 00 Medical Branch nitroglycer 2021-[id number] 1 [facility] in 0.4 mg 2-03 tablet ity of sublingual 00:00: under the [place] tablet 00 tongue Medical every 5 Branch (five) minutes as needed for Chest pain. Blood-Gluco 2021-09 Yes [id number] Use as Univers se Meter 2-03 directed ity of (ACCU-CHEK 00:00: [place] GUIDE 00 Medical GLUCOSE Branch METER) Misc lancets 33 2021-09 Yes [id number] Use as U nivers gauge Misc 2-03 directed ity o f 00:00: [place] 00 Medical Branch nitroglycer 2021-[id number] 1 [facility] in 0.4 mg 2-03 tablet ity of sublingual 00:00: under the [place] tablet 00 tongue Medical every 5 Branch (five) minutes as needed for Chest pain. Blood-Gluco 2021-09 Yes [id number] Use as Univers se Meter 2-03 directed ity of (ACCU-CHEK 00:00: [place] GUIDE 00 Medical GLUCOSE Branch METER) Misc lancets 33 2021-09 Yes [id number] Use as U nivers gauge Misc 2-03 directed ity o f 00:00: [place] 00 Medical Branch nitroglycer 2021-[id number] 1 [facility] in 0.4 mg 2-03 tablet ity of sublingual 00:00: under the [place] tablet 00 tongue Medical every 5 Branch (five) minutes as needed for Chest pain. Blood-Gluco 2021-09 Yes [id number] Use as Univers se Meter 2-03 directed ity of (ACCU-CHEK 00:00: [place] GUIDE 00 Medical GLUCOSE Branch METER) Misc lancets 33 2021-09 Yes [id number] Use as U nivers gauge Misc 2-03 directed ity o f 00:00: [place] 00 Medical Branch nitroglycer 2021-[id number] 1 Univers in 0.4 mg 2-03 tablet ity of sublingual 00:00: under the [place] tablet 00 tongue Medical every 5 Branch (five) minutes as needed for Chest pain. Blood-Gluco 2021-09 Yes [id number] Use as Univers se Meter 2-03 directed ity of (ACCU-CHEK 00:00: [place] GUIDE 00 Medical GLUCOSE Branch METER) Misc lancets 2021-09 Yes [id number] Use as U nivers gauge Misc 2-03 directed ity o f 00:00: [place] 00 Medical Branch nitroglycer 2021-[id number] 1 [facility] in 0.4 mg 2-03 tablet ity of sublingual 00:00: under the [place] tablet 00 tongue Medical every 5 Branch (five) minutes as needed for Chest pain. Blood-Gluco 2021-09 Yes [id number] Use as [facility] se Meter 2-03 directed ity of (ACCU-CHEK 00:00: [place] GUIDE 00 Medical GLUCOSE Branch METER) Misc lancets 2021-09 Yes [id number] Use as U nivers gauge Misc 2-03 directed ity o f 00:00: [place] Medical Branch nitroglycer 2021-[id number] 1 [facility] in 0.4 mg 2-03 tablet ity of sublingual 00:00: under the [place] tablet 00 tongue Medical every 5 Branch (five) minutes as needed for Chest pain. Blood-Gluco 2021-09 Yes [id number] Use as Univers se Meter 2-03 directed ity of (ACCU-CHEK 00:00: [place] GUIDE 00 Medical GLUCOSE Branch METER) Misc lancets 2021-09 Yes [id number] Use as U nivers gauge Misc 2-03 directed ity o f 00:00: [place] Medical Branch nitroglycer 2021-[id number] 1 Univers in 0.4 mg 2-03 tablet ity of sublingual 00:00: under the [place] tablet 00 tongue Medical every 5 Branch (five) minutes as needed for Chest pain. Blood-Gluco 2021-09 Yes [id number] Use as Univers se Meter 2-03 directed ity of (ACCU-CHEK 00:00: [place] GUIDE 00 Medical GLUCOSE Branch METER) Misc lancets 2021-09 Yes [id number] Use as U nivers gauge Misc 2-03 directed ity o f 00:00: [place] 00 Medical Branch nitroglycer 2021-[id number] 1 [facility] in 0.4 mg 2-03 tablet ity of sublingual 00:00: under the [place] tablet 00 tongue Medical every 5 Branch (five) minutes as needed for Chest pain. Blood-Gluco 2021-09 Yes [id number] Use as Univers se Meter 2-03 directed ity of (ACCU-CHEK 00:00: [place] GUIDE 00 Medical GLUCOSE Branch METER) Misc lancets 2021-09 Yes [id number] Use as U nivers gauge Misc 2-03 directed ity o f 00:00: [place] 00 Medical Branch nitroglycer 2021-[id number] 1 [facility] in 0.4 mg 2-03 tablet ity of sublingual 00:00: under the [place] tablet 00 tongue Medical every 5 Branch (five) minutes as needed for Chest pain. Blood-Gluco 2021-09 Yes [id number] Use as Univers se Meter 2-03 directed ity of (ACCU-CHEK 00:00: [place] GUIDE 00 Medical GLUCOSE Branch METER) Misc lancets 2021-09 Yes [id number] Use as U nivers gauge Misc 2-03 directed ity o f 00:00: [place] 00 Medical Branch nitroglycer 2021-[id number] 1 [facility] in 0.4 mg 2-03 tablet ity of sublingual 00:00: under the [place] tablet 00 tongue Medical every 5 Branch (five) minutes as needed for Chest pain. Blood-Gluco 2021-09 Yes [id number] Use as Univers se Meter 2-03 directed ity of (ACCU-CHEK 00:00: [place] GUIDE 00 Medical GLUCOSE Branch METER) Misc lancets 2021-09 Yes [id number] Use as U nivers gauge Misc 2-03 directed ity o f 00:00: [place] 00 Medical Branch nitroglycer 2021-[id number] 1 [facility] in 0.4 mg 2-03 tablet ity of sublingual 00:00: under the [place] tablet 00 tongue Medical every 5 Branch (five) minutes as needed for Chest pain. Blood-Gluco 2021-09 Yes [id number] Use as Univers se Meter 2-03 directed ity of (ACCU-CHEK 00:00: [place] GUIDE 00 Medical GLUCOSE Branch METER) Misc lancets 2021-09 Yes [id number] Use as U nivers gauge Misc 2-03 directed ity o f 00:00: [place] 00 Medical Branch nitroglycer 2021-[id number] 1 [facility] in 0.4 mg 2-03 tablet ity of sublingual 00:00: under the [place] tablet 00 tongue Medical every 5 Branch (five) minutes as needed for Chest pain. Blood-Gluco 2021-09 Yes [id number] Use as Univers se Meter 2-03 directed ity of (ACCU-CHEK 00:00: [place] GUIDE 00 Medical GLUCOSE Branch METER) Misc lancets 2021-09 Yes [id number] Use as U nivers gauge Misc 2-03 directed ity o f 00:00: [place] [facility] Branch nitroglycer 2021-[id number] 1 [facility] in 0.4 mg 2-03 tablet ity of sublingual 00:00: under the [place] tablet 00 tongue Medical every 5 Branch (five) minutes as needed for Chest pain. Blood-Gluco 2021-09 Yes [id number] Use as Univers se Meter 2-03 directed ity of (ACCU-CHEK 00:00: [place] GUIDE 00 Medical GLUCOSE Branch METER) Misc lancets 2021-09 Yes [id number] Use as U nivers gauge Misc 2-03 directed ity o f 00:00: Medical Branch nitroglycer 2021-[id number] 1 [facility] in 0.4 mg 2-03 tablet ity of sublingual 00:00: under the [place] tablet 00 tongue Medical every 5 Branch (five) minutes as needed for Chest pain. Blood-Gluco 2021-09 Yes [id number] Use as Univers se Meter 2-03 directed ity of (ACCU-CHEK 00:00: [place] GUIDE 00 Medical GLUCOSE Branch METER) Misc lancets 2021-09 Yes [id number] Use as U nivers gauge Misc 2-03 directed ity o f 00:00: [place] [facility] nitroglycer 2021-[id number] 1 [facility] in 0.4 mg 2-03 tablet ity of sublingual 00:00: under the [place] tablet 00 tongue Medical every 5 Branch (five) minutes as needed for Chest pain. Blood-Gluco 2021-09 Yes [id number] Use as Univers se Meter 2-03 directed ity of (ACCU-CHEK 00:00: [place] GUIDE 00 Medical GLUCOSE Branch METER) Misc lancets 2021-09 Yes [id number] Use as U nivers gauge Misc 2-03 directed ity o f 00:00: [place] 00 Medical Branch nitroglycer 2021-[id number] 1 [facility] in 0.4 mg 2-03 tablet ity of sublingual 00:00: under the [place] tablet 00 tongue Medical every 5 Branch (five) minutes as needed for Chest pain. Blood-Gluco 2021-09 Yes [id number] Use as Univers se Meter 2-03 directed ity of (ACCU-CHEK 00:00: [place] GUIDE 00 Medical GLUCOSE Branch METER) Misc lancets 2021-09 Yes [id number] Use as U nivers gauge Misc 2-03 directed ity o f 00:00: [place] 00 Medical Branch nitroglycer 2021-[id number] 1 [facility] in 0.4 mg 2-03 tablet ity of sublingual 00:00: under the [place] tablet 00 tongue Medical every 5 Branch (five) minutes as needed for Chest pain. Blood-Gluco 2021-09 Yes [id number] Use as Univers se Meter 2-03 directed ity of (ACCU-CHEK 00:00: [place] GUIDE 00 Medical GLUCOSE Branch METER) Misc lancets 2021-09 Yes [id number] Use as U nivers gauge Misc 2-03 directed ity o f 00:00: [place] 00 Medical Branch nitroglycer 2021-[id number] 1 [facility] in 0.4 mg 2-03 tablet ity of sublingual 00:00: under the [place] tablet 00 tongue Medical every 5 Branch (five) minutes as needed for Chest pain. Blood-Gluco 2021-09 Yes [id number] Use as Univers se Meter 2-03 directed ity of (ACCU-CHEK 00:00: [place] GUIDE 00 Medical GLUCOSE Branch METER) Misc lancets 2021-09 Yes [id number] Use as U nivers gauge Misc 2-03 directed ity o f 00:00: [place] 00 Medical Branch nitroglycer 2021-[id number] 1 [facility] in 0.4 mg 2-03 tablet ity of sublingual 00:00: under the [place] tablet 00 tongue Medical every 5 Branch (five) minutes as needed for Chest pain. Blood-Gluco 2021-09 Yes [id number] Use as [facility] se Meter 10-29 directed ity of (ACCU-CHEK 00:00: [place] GUIDE 00 [facility] GLUCOSE Branch METER) [facility] lancets 33 2021-09 Yes [id number] Use as U nivers gauge Mis 10-29 directed ity o f 00:00: [place] 00 Medical Branch amLODIPine 2021-09- No [id number] 10mg Take 1 Univers 10 mg 10-29-04 tablet by ity of tablet 00:00: 05:59 mouth in [place] 00 :00 the [facility] morning Branch for 90 days. atorvastati 2021-09- No [id number] 80mg Take 1 Univers n 80 mg 10-29- tablet by ity of tablet 00:00: 05:59 mouth at [place] 00 :00 bedtime Medical for 90 Branch days. carvediloL 2021-09- No [id number] 12.5mg Take 1 Univers 12.5 mg 10-29- tablet by ity of tablet 00:00: 05:59 mouth in [place] 00 :00 the [facility] morning Branch and 1 tablet in the evening. Take with meals. Do all this for 90 days. lisinopriL 2021-09- No [id number] 10mg Take 1 Univers 10 mg 10-29- tablet by ity of tablet 00:00: 05:59 mouth in [place] 00 :00 the [facility] Branch for 90 days. amLODIPine 2021-09- No [id number] 10mg Take 1 Univers 10 mg 10-29-04 tablet by ity of tablet 00:00: 05:59 mouth in [place] 00 :00 the [facility] morning [place] for 90 days. atorvastati 2021-09- No [id number] 80mg Take 1 Univers n 80 mg -11 26-04 tablet by ity of tablet 00:00: 05:59 mouth at [place] 00 :00 bedtime [facility] for 90 Branch days. carvediloL 2021-09- No [id number] 12.5mg Take 1 Univers 12.5 mg 2-11 26-04 tablet by ity of tablet 00:00: 05:59 mouth in [place] 00 :00 the [facility] morning Branch and 1 tablet in the evening. Take with meals. Do all this for 90 days. lisinopriL 2021-09- No [id number] 10mg Take 1 Univers 10 mg 2-03 03-04 tablet by ity of tablet 00:00: 05:59 mouth in [place] 00 :00 the [facility] morning [place] for 90 days. amLODIPine 2021-09- No [id number] 10mg Take 1 Univers 10 mg 2-03 03-04 tablet by ity of tablet 00:00: 05:59 mouth in [place] 00 :00 the [facility] for 90 days. atorvastati 2021-09- No [id number] 80mg Take 1 Univers n 80 mg 2- 03-04 tablet by ity of tablet 00:00: 05:59 mouth at [place] 00 :00 bedtime Medical for 90 Branch days. carvediloL 2021-09- No [id number] 12.5mg Take 1 Univers 12.5 mg 2-11 26-04 tablet by ity of tablet 00:00: 05:59 mouth in [place] 00 :00 the [facility] morning [place] and 1 tablet in the evening. Take with meals. Do all this for 90 days. lisinopriL 2021-09- No [id number] 10mg Take 1 Univers 10 mg 2-11 26-04 tablet by ity of tablet 00:00: 05:59 mouth in [place] 00 :00 the [facility] for 90 days. amLODIPine 2021-09- No [id number] 10mg Take 1 Univers 10 mg 2-11 26-04 tablet by ity of tablet 00:00: 05:59 mouth in [place] 00 :00 the [facility] for 90 days. atorvastati 2021-09- No [id number] 80mg Take 1 Univers n 80 mg 2-03 03-04 tablet by ity of tablet 00:00: 05:59 mouth at [place] 00 :00 bedtime [facility] for 90 Branch days. carvediloL 2021-09- No [id number] 12.5mg Take 1 Univers 12.5 mg 2-03 03-04 tablet by ity of tablet 00:00: 05:59 mouth in [place] 00 :00 the [facility] and 1 tablet in the evening. Take with meals. Do all this for 90 days. lisinopriL 2021-09- No [id number] 10mg Take 1 Univers 10 mg 2-03 03-04 tablet by ity of tablet 00:00: 05:59 mouth in [place] 00 :00 the [facility] morning [place] for 90 days. amLODIPine 2021-09- No [id number] 10mg Take 1 Univers 10 mg 2-11 26-04 tablet by ity of tablet 00:00: 05:59 mouth in [place] 00 :00 the [facility] morning [place] for 90 days. atorvastati 2021-09- No [id number] 80mg Take 1 Univers n 80 mg 2-11 26-04 tablet by ity of tablet 00:00: 05:59 mouth at [place] 00 :00 bedtime [facility] for 90 Branch days. carvediloL 2021-09- No [id number] 12.5mg Take 1 Univers 12.5 mg 2-11 26-04 tablet by ity of tablet 00:00: 05:59 mouth in [place] 00 :00 the [facility] morning [place] and 1 tablet in the evening. Take with meals. Do all this for 90 days. lisinopriL 2021-09- No [id number] 10mg Take 1 Univers 10 mg 2-11 26-04 tablet by ity of tablet 00:00: 05:59 mouth in [place] 00 :00 the [facility] for 90 days. amLODIPine 2021-09- No [id number] 10mg Take 1 Univers 10 mg 2-11 26-04 tablet by ity of tablet 00:00: 05:59 mouth in [place] 00 :00 the [facility] for 90 days. atorvastati 2021-09- No [id number] 80mg Take 1 Univers n 80 mg 2-11 26-04 tablet by ity of tablet 00:00: 05:59 mouth at [place] 00 :[facility] Branch [facility] carvediloL 2021-09- No [id number] 12.5mg Take 1 Univers 12.5 mg 2-11 26-04 tablet by ity of tablet 00:00: 05:59 mouth in [place] 00 :00 the [facility] morning [place] and 1 tablet in the evening. Take with meals. Do all this for 90 days. lisinopriL 2021-09- No [id number] 10mg Take 1 Univers 10 mg 2- 03-04 tablet by ity of tablet 00:00: 05:59 mouth in [place] 00 :00 the [facility] for 90 days. amLODIPine 2021-09- No [id number] 10mg Take 1 Univers 10 mg 2-03 03-04 tablet by ity of tablet 00:00: 05:59 mouth in [place] 00 :00 the [facility] for 90 days. atorvastati 2021-09- No [id number] 80mg Take 1 Univers n 80 mg 2-03 03-04 tablet by ity of tablet 00:00: 05:59 mouth at [place] 00 :00 bedtime Medical for 90 Branch days. carvediloL 2021-09- No [id number] 12.5mg Take 1 Univers 12.5 mg 2-03 03-04 tablet by ity of tablet 00:00: 05:59 mouth in [place] 00 :00 the [facility] and 1 tablet in the evening. Take with meals. Do all this for 90 days. lisinopriL 2021-09- No [id number] 10mg Take 1 Univers 10 mg 2- 03-04 tablet by ity of tablet 00:00: 05:59 mouth in [place] 00 :00 the [facility] for 90 days. amLODIPine 2021-09- No [id number] 10mg Take 1 Univers 10 mg 2-03 03-04 tablet by ity of tablet 00:00: 05:59 mouth in [place] 00 :00 the [facility] for 90 days. atorvastati 2021-09- No [id number] 80mg Take 1 Univers n 80 mg 2- 03-04 tablet by ity of tablet 00:00: 05:59 mouth at [place] 00 :00 [facility] Branch days. carvediloL 2021-09- No [id number] 12.5mg Take 1 Univers 12.5 mg 2-03 03-04 tablet by ity of tablet 00:00: 05:59 mouth in [place] 00 :00 the [facility] and 1 tablet in the evening. Take with meals. Do all this for 90 days. lisinopriL 2021-09- No [id number] 10mg Take 1 Univers 10 mg 2-03 03-04 tablet by ity of tablet 00:00: 05:59 mouth in [place] 00 :00 the [facility] for 90 days. amLODIPine 2021-09- No [id number] 10mg Take 1 Univers 10 mg 2-03 03-04 tablet by ity of tablet 00:00: 05:59 mouth in [place] 00 :00 the Medical morning [place] for 90 days. atorvastati 2021-09- No [id number] 80mg Take 1 Univers n 80 mg 10-29- tablet by ity of tablet 00:00: 05:59 mouth at [place] 00 :00 bedtime Medical for 90 Branch days. carvediloL 2021-09- No [id number] 12.5mg Take 1 Univers 12.5 mg 2- tablet by ity of tablet 00:00: 05:59 mouth in [place] 00 :00 the Medical morning Branch and 1 tablet in the evening. Take with meals. Do all this for 90 days. lisinopriL 2021-09- No [id number] 10mg Take 1 Univers 10 mg 10-29-04 tablet by ity of tablet 00:00: 05:59 mouth in [place] 00 :00 the [facility] morning [place] for 90 days. amLODIPine 2021-09- No [id number] 10mg Take 1 Univers 10 mg 10-29- tablet by ity of tablet 00:00: 05:59 mouth in [place] 00 :00 the [facility] morning [place] for 90 days. atorvastati 2021-09- No [id number] 80mg Take 1 Univers n 80 mg 10-29 tablet by ity of tablet 00:00: 05:59 mouth at [place] 00 :00 bedtime Medical for 90 Branch days. carvediloL 2021-09- No [id number] 12.5mg Take 1 Univers 12.5 mg 10-29- tablet by ity of tablet 00:00: 05:59 mouth in [place] 00 :00 the [facility] morning Branch and 1 tablet in the evening. Take with meals. Do all this for 90 days. lisinopriL 2021-093- No [id number] 10mg Take 1 Univers 10 mg 2-11 26-04 tablet by ity of tablet 00:00: 05:59 mouth in [place] 00 :00 the [facility] morning [place] for 90 days. amLODIPine 2021-09- No [id number] 10mg Take 1 Univers 10 mg 2-11 26-04 tablet by ity of tablet 00:00: 05:59 mouth in [place] 00 :00 the [facility] for 90 days. atorvastati 2021-09- No [id number] 80mg Take 1 Univers n 80 mg 2-04 tablet by ity of tablet 00:00: 05:59 mouth at [place] 00 :00 bedtime [facility] for 90 Branch days. carvediloL 2021-09- No [id number] 12.5mg Take 1 Univers 12.5 mg 2-11 26-04 tablet by ity of tablet 00:00: 05:59 mouth in [place] 00 :00 the [facility] and 1 tablet in the evening. Take with meals. Do all this for 90 days. lisinopriL 2021-09- No [id number] 10mg Take 1 Univers 10 mg 2-04 tablet by ity of tablet 00:00: 05:59 mouth in [place] 00 :00 the [facility] for 90 days. amLODIPine 2021-09- No [id number] 10mg Take 1 Univers 10 mg 2-11 26-04 tablet by ity of tablet 00:00: 05:59 mouth in [place] 00 :00 [facility] for 90 days. atorvastati 2021-09- No [id number] 80mg Take 1 Univers n 80 mg 10-29-04 tablet by ity of tablet 00:00: 05:59 mouth at [place] 00 :00 bedtime [facility] for 90 Branch days. carvediloL 2021-09- No [id number] 12.5mg Take 1 Univers 12.5 mg 10-29-04 tablet by ity of tablet 00:00: 05:59 mouth in [place] 00 :00 the [facility] and 1 tablet in the evening. Take with meals. Do all this for 90 days. lisinopriL 2021-09- No [id number] 10mg Take 1 Univers 10 mg 2-04 tablet by ity of tablet 00:00: 05:59 mouth in [place] 00 :00 [facility] for 90 days. blood sugar 2021-09- No [id number] Use as Univers diagnostic 10-29 directed ity of (ACCU-CHEK 00:00: 00:00 [place] GUIDE TEST 00 :00 Medical STRIPS) Branch strip blood sugar 2021-09- No [id number] Use as Univers diagnostic 10-29 directed ity [...] Discontinu ed, Routine Sliding 2021-09- No Subcutaneo Uni vers Scale 10-28 us, TID [...] [place] injection 14 :45 on Tue Medical 08/27/22 at Branch 1305, Until Tue08/27/22 at 1322, Routine, CV Intraproce dure NaCl 0.9% 2021-09- No CONTINUOUS U nivers (NS) bolus 10-28 PRN, ity of infusion 18:53: 18:53 [place] 25 :25 on Tue Medical 08/27/22 at Branch 1253, Until Discontinu ed, [...] Fri Medical 08/27/22 at Branch 1245, Until 08/27/22 at 1322, Routine, CV Intraproce dure lidocaine 2021-09- No ONCE INTRA U nivers 1% (PF) 10-28 PROCEDURE, ity o f (XYLOCAINE) 18:43: 19:22 Starting [place] injection 27 :45 on Fri Medical 08/27/22 at Branch 1243, Until 08/27/22 [...] Routine, CV Intraproce dure sulfur 2021-09- No [id number] 5mL 5 mL, Unive rs hexafluorid 10-28 Intravenou i ty of e microsphr 15:30: 15:30 s, ONCE, 1 [place] (LUMASON) 00 :00 dose, On Medica l injection 5 Fri Branch mL 08/27/22 at 0930, Routine
sales floor team member approving Restricted medication : CARLY TURNER sulfur 2021-09- No [id number] 5mL 5 mL, Unive rs hexafluorid 10-28 Intravenou i ty of e microsphr 15:30: 15:30 s, ONCE, 1 [place] (LUMASON) 00 :00 dose, On Medica l injection 5 Tue Branch mL 08/27/22 at 0930, Routine
sales floor team member approving Restricted medication : CARLY TURNER pantoprazol 2021-09 Yes 40mg 40 mg, Univ ers e 10-28 Oral, ity of (PROTONIX) 15:00: DAILY, [place] EC tablet 00 First dose Medi christelle 40 mg on Tue Branch 08/27/22 at 0900, Until Discontinu ed, Routine aspirin 2021-09 Yes 81mg 81 mg, Univers chewable 10-28 Oral, ity of tablet 81 15:00: DAILY, [place] mg 00 First dose Medical on Tue Branch 08/27/22 at 0900, Until Discontinu ed, Routine tamsulosin 2021-09 Yes .4mg 0.4 mg, Univ ers (FLOMAX) 10-28 Oral, ity of capsule 0.4 15:00: DAILY, [place] mg 00 First dose Medical on Tue Branch 08/27/22 at 0900, Until Discontinu ed, Routine lisinopriL 2021-09 Yes 10mg 10 mg, Unive rs (PRINIVIL,Z 10-28 Oral, ity of ESTRIL) 15:00: DAILY, [place] tablet 10 00 First dose Medi christelle mg on Tue [...] First dose Medi christelle 40 mg on Tue Branch 08/27/22 at 0900, Until Discontinu ed, Routine aspirin 2021-09 No 81mg 81 mg, Univers chewable 10-28 Oral, ity of tablet 81 15:00: 22:49 DAILY, [place] mg 00 :38 First dose Medical on Tue Branch 08/27/22 at 0900, Until Discontinu ed, Routine tamsulosin 2021-09 No .4mg 0.4 mg, Uni vers (FLOMAX) 10-28 [...] Sliding 2021-09 Subcutaneo Uni vers Scale 10-28 , TID ity of Insulin - 14:00: 21:42 MEALS+HS, [place] Lispro 00 :38 First dose Medical (HumaLOG) + on Fri Branch Fsbg 08/27/22 at Testing 0800, Until Discontinu ed, Routine Sliding 2021-09 Subcutaneo Uni vers Scale 10-28 , TID ity of Insulin - 14:00: 21:42 MEALS+HS, [place] Lispro 00 :38 First dose Medical (HumaLOG) + on Fri Branch Fsbg 08/27/22 at Testing 0800, Until Discontinu ed, Routine amLODIPine 2021-09- No 5mg 5 mg, Unive rs (NORVASC) 10-28 Oral, ity of tablet 5 mg 11:15: 13:19 Q24H, [place] 00 :48 First dose Medical on Fri Branch 08/27/22 at 0515, Until Discontinu ed, Routine amLODIPine 2021-09- No 5mg 5 mg, Unive rs (NORVASC) 10-28 Oral, ity of tablet 5 mg 11:15: 13:19 Q24H, [place] 00 :48 First dose Medical on Fri Branch 08/27/22 at 0515, Until Discontinu ed, [...] h mg on Tue08/27/22 at 0043, Until 08/28/22 at 1649, Routine, [...] Range, Dosing and Testing: &nbs p;FOR [facility] AND [facility] ONLY &nbs p; - [...] therapy. Range, Dosing and Testing: &nbs p;FOR [facility], [facility], AND [facility] ONLY &nbs p; - aPTT < [...] Starting [place] mL vial) 50 :37 on [facility] for 08/26/22 at [facility] 213, Until 08/28/22 at 0934, Routine
Dosing based on aPPT testing parameters (refer to continuous heparin drip order).
heparin 2021-09 3000U FOR Univers (1,000 10-28 REBOLUSING ity of unit/mL, 10 03:37: 15:34 , Starting [place] mL vial) 50 :37 on [facility] for 08/26/22 at [place] [address], Until 08/28/22 at 0934, Routine
Dosing based on aPPT testing parameters (refer to continuous heparin drip order).
cloNIDine 2021-09 No .1mg 0.1 mg, [facility] ers (CATAPRES) 10-28 Oral, ity of tablet 0.1 02:15: 02:09 ONCE, 1 [place] as mg 00 :00 dose, On [facility] 08/26/22 at 2015, STAT cloNIDine 2021-09 No .1mg 0.1 mg, [facility] ers (CATAPRES) 10-28 Oral, ity of tablet 0.1 02:15: 02:09 ONCE, 1 [place] as mg 00 :00 dose, On [facility] 08/26/22 at 2015, STAT metoprolol 2021-09 No 25mg 25 mg, [facility] tartrate 10-28 Oral, ONCE ity of (LOPRESSOR) 00:45: 00:15 NOW, 1 [place] as tablet 25 00 :00 dose, On Medica l mg [facility] 08/26/22 at 1845, DEREK metoprolol 2021-09 No 25mg 25 mg, [facility] tartrate 10-28 Oral, ONCE ity of (LOPRESSOR) 00:45: 00:15 NOW, 1 [place] as tablet 25 00 :00 dose, On Medica l mg [facility] 08/26/22 at 1845, DEREK metoprolol 2021-09 No [...] Medical [place] Branch 08/26/22 at 1730, DEREK busPIRone 2021-09 Yes [id number] 10mg Take 1 U nivers 10 mg 1-01 tablet by ity of tablet 00:00: mouth 2 [place] 00 (two) Medical times Branch daily as needed for Other (anxiety). busPIRone 2021-09 Yes [id number] 10mg Take 1 U nivers 10 mg 1-01 tablet by ity of tablet 00:00: mouth 2 00 (two) Medical times Branch daily as needed for Other (anxiety). busPIRone 2021-09 Yes [id number] 10mg Take 1 U nivers 10 mg 1-01 tablet by ity of tablet 00:00: mouth 2 00 (two) Medical times Branch daily as needed for Other (anxiety). busPIRone 2021-09 Yes [id number] 10mg Take 1 U nivers 10 mg 1-01 tablet by ity of tablet 00:00: mouth 2 00 (two) Medical times Branch daily as needed for Other (anxiety). busPIRone 2021-09 Yes [id number] 10mg Take 1 U nivers 10 mg 1-01 tablet by ity of tablet 00:00: mouth 2 [place] 00 (two) Medical times Branch daily as needed for Other (anxiety). busPIRone 2021-09 Yes [id number] 10mg Take 1 U nivers 10 mg 1-01 tablet by ity of tablet 00:00: mouth 2 [place] 00 (two) Medical times Branch daily as needed for Other (anxiety). busPIRone 2021-09 Yes [id number] 10mg Take 1 U nivers 10 mg 1-01 tablet by ity of tablet 00:00: mouth 2 [place] 00 (two) Medical times Branch daily as needed for Other (anxiety). busPIRone 2021-09 Yes [id number] 10mg Take 1 U nivers 10 mg 1-01 tablet by ity of tablet 00:00: mouth 2 00 (two) Medical times Branch daily as needed for Other (anxiety). busPIRone 2021-09 Yes [id number] 10mg Take 1 U nivers 10 mg 1-01 tablet by ity of tablet 00:00: mouth 2 00 (two) Medical times Branch daily as needed for Other (anxiety). busPIRone 2021-09 Yes [id number] 10mg Take 1 U nivers 10 mg 1-01 tablet by ity of tablet 00:00: mouth 2 00 (two) Medical times Branch daily as needed for Other (anxiety). busPIRone 2021-09 Yes [id number] 10mg Take 1 U nivers 10 mg 1-01 tablet by ity of tablet 00:00: mouth 2 (two) Medical times Branch daily as needed for Other (anxiety). busPIRone 2021-09 Yes [id number] 10mg Take 1 U nivers 10 mg 1-01 tablet by ity of tablet 00:00: mouth 2 (two) Medical times Branch daily as needed for Other (anxiety). busPIRone 2021-09 Yes [id number] 10mg Take 1 U nivers 10 mg 1-01 tablet by ity of tablet 00:00: mouth 2 (two) Medical times Branch daily as needed for Other (anxiety). busPIRone 2021-09 Yes [id number] 10mg Take 1 U nivers 10 mg 1-01 tablet by ity of tablet 00:00: mouth 2 (two) Medical times Branch daily as needed for Other (anxiety). busPIRone 2021-09 Yes [id number] 10mg Take 1 U nivers 10 mg 1-01 tablet by ity of tablet 00:00: mouth 2 00 (two) Medical times Branch daily as needed for Other (anxiety). busPIRone 2021-09 Yes [id number] 10mg Take 1 U nivers 10 mg 1-01 tablet by ity of tablet 00:00: mouth 2 00 (two) Medical times Branch daily as needed for Other (anxiety). busPIRone 2021-09 Yes [id number] 10mg Take 1 U nivers 10 mg 1-01 tablet by ity of tablet 00:00: mouth 2 [place] 00 (two) Medical times Branch daily as needed for Other (anxiety). busPIRone 2021-09 Yes [id number] 10mg Take 1 U nivers 10 mg 1-01 tablet by ity of tablet 00:00: mouth 2 [place] 00 (two) Medical times Branch daily as needed for Other (anxiety). busPIRone 2021-09 Yes [id number] 10mg Take 1 U nivers 10 mg 1-01 tablet by ity of tablet 00:00: mouth 2 [place] 00 (two) Medical times Branch daily as needed for Other (anxiety). busPIRone 2021-09 Yes [id number] 10mg Take 1 U nivers 10 mg 1-01 tablet by [facility] tablet 00:00: mouth 2 [place] 00 (two) Medical times Branch daily as needed for Other (anxiety). busPIRone 2021-09 Yes [id number] 10mg Take 1 [facility] 10 mg 1-01 tablet by [facility] of tablet 00:00: mouth 2 00 (two) Medical times Branch daily as needed for Other (anxiety). busPIRone 2021-09 Yes [id number] 10mg Take 1 [facility] 10 mg 1-01 tablet by [facility] of tablet 00:00: mouth 2 [place] 00 (two) Medical times Branch daily as needed for Other (anxiety). busPIRone 2021-09 Yes [id number] 10mg Take 1 [facility] 10 mg 1-01 tablet by [facility] of tablet 00:00: mouth 2 [place] 00 (two) Medical times Branch daily as needed for Other (anxiety). busPIRone 2021-09 Yes [id number] 10mg Take 1 [facility] 10 mg 1-01 tablet by [facility] of tablet 00:00: mouth 2 [place] 00 (two) Medical times Branch daily as needed for Other (anxiety). busPIRone 2021-09 Yes [id number] 10mg Take 1 [facility] 10 mg 1-01 tablet by [facility] of tablet 00:00: mouth 2 [place] 00 (two) Medical times Branch daily as needed for Other (anxiety). busPIRone 2021-09 Yes [id number] 10mg Take 1 [facility] 10 mg 1-01 tablet by [facility] of tablet 00:00: mouth 2 (two) Medical times Branch daily as needed for Other (anxiety). busPIRone 2021-09 Yes [id number] 10mg Take 1 [facility] 10 mg 1-01 tablet by [facility] of tablet 00:00: mouth 2 (two) Medical times Branch daily as needed for Other (anxiety). metoprolol 2021-09 Yes [id number] 50mg Take 2 [facility] tartrate 25 1-01 tablets by [facility] mg tablet 00:00: mouth [place] 00 the Medical morning Branch and 2 tablets in the evening. busPIRone 2021-09 Yes [id number] 10mg Take 1 [facility] 10 mg 1-01 tablet by [facility] of tablet 00:00: mouth 2 (two) Medical times Branch daily as needed for Other (anxiety). metoprolol 2021-09 Yes [id number] 50mg Take 2 [facility] tartrate 25 1-01 tablets by [facility] mg tablet 00:00: mouth [place] 00 the Medical morning Branch and 2 tablets in the evening. busPIRone 2021-09 Yes [id number] 10mg Take 1 [facility] 10 mg 1-01 tablet by it[facility] of tablet 00:00: mouth (two) Medical times Branch daily as needed for Other (anxiety). metoprolol 2021-09 Yes [id number] 50mg Take 2 [facility] n[facility] tartrate 25 1-01 tablets by [facility] mg tablet 00:00: mouth [place] 00 the Medical morning Branch and 2 tablets in the evening. busPIRone 2021-09 Yes [id number] 10mg Take 1 [facility] 10 mg 1-01 tablet by [facility] of tablet 00:00: mouth 2 00 (two) Medical times Branch daily as needed for Other (anxiety). metoprolol 2021-09 Yes [id number] 50mg Take 2 [facility] tartrate 25 1-01 tablets by [facility] mg tablet 00:00: mouth [place] 00 the Medical morning Branch and 2 tablets in the evening. busPIRone 2021-09 Yes [id number] 10mg Take 1 [facility] 10 mg 1-01 tablet by [facility] of tablet 00:00: mouth 2 (two) Medical times Branch daily as needed for Other (anxiety). metoprolol 2021-09 Yes [id number] 50mg Take 2 [facility] n[facility] tartrate 25 1-01 tablets by [facility] mg tablet 00:00: mouth [place] 00 the Medical morning Branch and 2 tablets in the evening. busPIRone 2021-09 Yes [id number] 10mg Take 1 [facility] 10 mg 1-01 tablet by [facility] of tablet 00:00: mouth (two) Medical times Branch daily as needed for Other (anxiety). metoprolol 2021-09 Yes [id number] 50mg Take 2 [facility] n[facility] tartrate 25 1-01 tablets by it y of mg tablet 00:00: mouth in [place] 00 the Medical morning Branch and 2 tablets in the evening. busPIRone 2021-09 Yes [id number] 10mg Take 1 [facility] 10 mg 1-01 tablet by ity of tablet 00:00: mouth ([facility]) Medical times Branch daily as needed for Other (anxiety). metoprolol 2021-09 Yes [id number] 50mg Take 2 [facility] nivers tartrate 25 1-01 tablets by it y of mg tablet 00:00: mouth in [place] Medical morning Branch and 2 tablets in the evening. busPIRone 2021-09 Yes [id number] 10mg Take 1 [facility] n[facility] 10 mg 1-01 tablet by ity of tablet 00:00: mouth (two) Medical times Branch daily as needed for Other (anxiety). metoprolol 2021-09 Yes [id number] 50mg Take 2 [facility] nivers tartrate 25 1-01 tablets by it y of mg tablet 00:00: mouth in [place] the Medical morning Branch and 2 tablets in the evening. busPIRone 2021-09 Yes [id number] 10mg Take 1 [facility] 10 mg 1-01 tablet by ity of tablet 00:00: mouth (two) Medical times Branch daily as needed for Other (anxiety). metoprolol 2021-09 Yes [id number] 50mg Take 2 [facility] n[facility] tartrate 25 1-01 tablets by it y of mg tablet 00:00: mouth [place] 00 the Medical morning Branch and 2 tablets in the evening. busPIRone 2021-09 Yes [id number] 10mg Take 1 [facility] 10 mg 1-01 tablet by it[facility] of tablet 00:00: mouth 2 00 (two) Medical times Branch daily as needed for Other (anxiety). busPIRone 2021-09 Yes [id number] 10mg Take 1 [facility] n[facility] 10 mg 1-01 tablet by ity of tablet 00:00: mouth 2 [place] 00 (two) Medical times Branch daily as needed for Other (anxiety). busPIRone 2021-09 Yes [id number] 10mg Take 1 [facility] n[facility] 10 mg 1-01 tablet by it[facility] of tablet 00:00: mouth 2 00 (two) Medical times Branch daily as needed for Other (anxiety). busPIRone 2021-09 Yes [id number] 10mg Take 1 [facility] 10 mg 1-01 tablet by ity of tablet 00:00: mouth 2 00 (two) Medical times Branch daily as needed for Other (anxiety). busPIRone 2021-09 Yes [id number] 10mg Take 1 [facility] n[facility] 10 mg 1-01 tablet by ity of tablet 00:00: mouth 2 00 (two) Medical times Branch daily as needed for Other (anxiety). busPIRone 2021-09 Yes [id number] 10mg Take 1 [facility] n[facility] 10 mg 1-01 tablet by ity of tablet 00:00: mouth 2 00 (two) Medical times Branch daily as needed for Other (anxiety). busPIRone 2021-09 Yes [id number] 10mg Take 1 [facility] 10 mg 1-01 tablet by ity of tablet 00:00: mouth 2 00 (two) Medical times Branch daily as needed for Other (anxiety). busPIRone 2021-09 Yes [id number] 10mg Take 1 [facility] 10 mg 1-01 tablet by ity of tablet 00:00: mouth 2 00 (two) Medical times Branch daily as needed for Other (anxiety). busPIRone 2021-09 Yes [id number] 10mg Take 1 [facility] 10 mg 1-01 tablet by it[facility] of tablet 00:00: mouth 2 [place] 00 (two) Medical times Branch daily as needed for Other (anxiety). metoprolol 2021-09- No [id number] 50mg Take 2 [facility] tartrate 25 1-01 12-03 tablets by i ty of mg tablet 00:00: 00:00 mouth in [place] 00 :00 the Medical morning Branch and 2 tablets in the evening. metoprolol 2021-09- No [id number] 50mg Take 2 [facility] tartrate 25 09-26 tablets by i ty of mg tablet 00:00: 00:00 mouth in [place] 00 :00 the Medical morning Branch and 2 tablets in the evening. venlafaxine 2021- No 75mg Take 75 mg [facility] XR 75 mg 06-22 by mouth ity of hr capsule 11:11: 00:00 daily with [place] 26 :00 breakfast. Medical Branch lisinopriL 2021- No 10mg Take 10 mg [facility] 10 mg 06-22 by mouth ity of tablet 11:11: 00:00 in the [place] 26 :00 morning. Medical Branch metoprolol 2021- No 25mg Take 25 mg [facility] tartrate 06-22 by mouth ity of mg tablet 11:11: 00:00 in the [place] 26 :00 morning Medical and 25 mg Branch in the evening. venlafaxine 2021- No 75mg Take 75 mg [facility] XR 75 mg 06-22 by mouth ity of hr capsule 11:11: 00:00 daily with [place] 26 :00 breakfast. Medical Branch lisinopriL 2021-2021- No 10mg Take 10 mg [facility] 10 mg 06-22 by mouth ity of tablet 11:11: 00:00 in the [place] 26 :00 morning. Medical Branch metoprolol 2021-0 2021- No 25mg Take 25 mg [facility] tartrate 06-22 by mouth ity of mg tablet 11:11: 00:00 in the [place] 26 :00 morning Medical and 25 mg Branch in the evening. aspirin 81 2021-0 2- No 81mg Take 81 mg [facility] mg EC 06-22 by mouth ity of tablet 11:02: 00:00 daily. [place] 39 :00 Medical Branch aspirin 81 2021-0 2- No 81mg Take 81 mg [facility] mg EC 06-22 by mouth ity of tablet 11:02: 00:00 daily. [place] 39 :00 Medical Branch lisinopriL 2-0 Yes [id number] 10mg Take 1 [facility] n[facility] 10 mg 9-27 tablet by ity of tablet 00:00: mouth in [place] 00 the Medical morning. Branch metoprolol 2021-0 Yes [id number] 25mg Take 1 [facility] n[facility] tartrate 25 9-27 tablet by [facility] mg tablet 00:00: mouth [place] 00 the Medical morning Branch and 1 tablet in the evening. venlafaxine 2-0 Yes [id number] 75mg Take 1 [facility] XR 75 mg 24 9-27 capsule by it y of hr capsule 00:00: mouth [place] 00 daily with Medical breakfast. Branch tamsulosin 2021-0 Yes [id number] .4mg Take 1 [facility] 0.4 mg 24 9-27 capsule by ity of hr capsule 00:00: mouth in [place] 00 the Medical morning. Branch lisinopriL 2021-0 Yes [id number] 10mg Take 1 [facility] 10 mg 9-27 tablet by ity of tablet 00:00: mouth in [place] 00 the Medical morning. Branch metoprolol 2021-0 Yes [id number] 25mg Take 1 [facility] nivers tartrate 25 9-27 tablet by [facility] mg tablet 00:00: [facility] Branch and 1 tablet in the evening. venlafaxine 2021-0 Yes [id number] 75mg Take 1 [facility] XR 75 mg 24 9-27 capsule by it y of hr capsule 00:00: mouth [place] 00 daily with Medical breakfast. Branch tamsulosin 2-0 Yes [id number] .4mg Take 1 [facility] 0.4 mg 24 9-27 capsule by ity of hr capsule 00:00: mouth in [place] 00 the Medical morning. Branch lisinopriL 2021-0 Yes [id number] 10mg Take 1 [facility] 10 mg 9-27 tablet by ity of tablet 00:00: mouth in [place] 00 the Medical morning. Branch metoprolol 2-0 Yes [id number] 25mg Take 1 [facility] n[facility] tartrate 25 9-27 tablet by it[facility] of mg tablet 00:00: mouth in [place] 00 the Medical morning Branch and 1 tablet in the evening. venlafaxine 2-0 Yes [id number] 75mg Take 1 [facility] XR 75 mg 24 9-27 capsule by it y of hr capsule 00:00: mouth [place] 00 daily with Medical breakfast. Branch tamsulosin 2021-0 Yes [id number] .4mg Take 1 [facility] 0.4 mg 24 9-27 capsule by ity of hr capsule 00:00: mouth in [place] 00 the Medical morning. Branch lisinopriL 2021-0 Yes [id number] 10mg Take 1 [facility] 10 mg 9-27 tablet by ity of tablet 00:00: mouth in [place] 00 the Medical morning. Branch metoprolol 2021-0 Yes [id number] 25mg Take 1 [facility] n[facility] tartrate 25 9-27 tablet by it[facility] of mg tablet 00:00: mouth [place] 00 the Medical morning Branch and 1 tablet in the evening. venlafaxine 2021-0 Yes [id number] 75mg Take 1 [facility] XR 75 mg 24 9-27 capsule by it y of hr capsule 00:00: mouth [place] 00 daily with Medical breakfast. Branch tamsulosin 2021-0 Yes [id number] .4mg Take 1 [facility] 0.4 mg 24 9-27 capsule by ity of hr capsule 00:00: mouth in [place] 00 the Medical morning. Branch lisinopriL 2021-0 Yes [id number] 10mg Take 1 [facility] n[facility] 10 mg 9-27 tablet by ity of tablet 00:00: mouth in [place] 00 the Medical morning. Branch metoprolol 2021-0 Yes [id number] 25mg Take 1 U nivers tartrate 25 9-27 tablet by ity of mg tablet 00:00: mouth in [facility] 00 the Medical morning Branch and 1 tablet in the evening. venlafaxine 2021-0 Yes [id number] 75mg Take 1 [facility] XR 75 mg 24 9-27 capsule by it y of hr capsule 00:00: mouth [place] 00 daily with Medical breakfast. Branch tamsulosin 2021-0 Yes [id number] .4mg Take 1 [facility] 0.4 mg 24 9-27 capsule by ity of hr capsule 00:00: mouth in [place] 00 the Medical morning. Branch lisinopriL 2021-0 Yes [id number] 10mg Take 1 [facility] n[facility] 10 mg 9-27 tablet by ity of tablet 00:00: mouth in [place] 00 the Medical morning. Branch venlafaxine 2022-0 Yes [id number] 75mg Take 1 [facility] XR 75 mg 24 9-27 capsule by it y of hr capsule 00:00: mouth 00 daily with Medical breakfast. Branch tamsulosin 2021-0 Yes [id number] .4mg Take 1 [facility] 0.4 mg 24 9-27 capsule by ity of hr capsule 00:00: mouth in [place] 00 the Medical morning. Branch lisinopriL 2021-0 Yes [id number] 10mg Take 1 [facility] nivers 10 mg 9-27 tablet by ity of tablet 00:00: mouth in [place] 00 the Medical morning. Branch venlafaxine 2021-0 Yes [id number] 75mg Take 1 [facility] XR 75 mg 24 9-27 capsule by it y of hr capsule 00:00: mouth [place] 00 daily with Medical breakfast. Branch tamsulosin 2021-0 Yes [id number] .4mg Take 1 [facility] 0.4 mg 24 9-27 capsule by ity of hr capsule 00:00: mouth in [facility] as 00 the Medical morning. Branch lisinopriL 2021-0 Yes [id number] 10mg Take 1 [facility] nivers 10 mg 9-27 tablet by ity of tablet 00:00: mouth in [place] 00 the Medical morning. Branch venlafaxine 2021-0 Yes [id number] 75mg Take 1 [facility] XR 75 mg 24 9-27 capsule by it y of hr capsule 00:00: mouth [place] 00 daily with Medical breakfast. Branch tamsulosin 2021-0 Yes [id number] .4mg Take 1 [facility] 0.4 mg 24 9-27 capsule by ity of hr capsule 00:00: mouth in [place] 00 the Medical morning. Branch lisinopriL 2-0 Yes [id number] 10mg Take 1 [facility] nivers 10 mg 9-27 tablet by ity of tablet 00:00: mouth in [place] 00 the Medical morning. Branch venlafaxine 2-0 Yes [id number] 75mg Take 1 [facility] XR 75 mg 24 9-27 capsule by it y of hr capsule 00:00: mouth [place] 00 daily with Medical breakfast. Branch tamsulosin 2-0 Yes [id number] .4mg Take 1 [facility] 0.4 mg 24 9-27 capsule by ity of hr capsule 00:00: mouth in [place] 00 the Medical morning. Branch lisinopriL 2021-0 Yes [id number] 10mg Take 1 [facility] nivers 10 mg 9-27 tablet by ity of tablet 00:00: mouth in [place] 00 the Medical morning. Branch venlafaxine 2021-0 Yes [id number] 75mg Take 1 [facility] XR 75 mg 24 9-27 capsule by it y of hr capsule 00:00: mouth [place] 00 daily with Medical breakfast. Branch tamsulosin 2021-0 Yes [id number] .4mg Take 1 [facility] 0.4 mg 24 9-27 capsule by ity of hr capsule 00:00: mouth in [place] 00 the Medical morning. Branch lisinopriL 2021-0 Yes [id number] 10mg Take 1 [facility] nivers 10 mg 9-27 tablet by ity of tablet 00:00: mouth in [place] 00 the Medical morning. Branch venlafaxine 2021-0 Yes [id number] 75mg Take 1 [facility] XR 75 mg 24 9-27 capsule by it y of hr capsule 00:00: mouth [place] 00 daily with Medical breakfast. Branch tamsulosin 2021-0 Yes [id number] .4mg Take 1 [facility] 0.4 mg 24 9-27 capsule by ity of hr capsule 00:00: mouth in [facility] as 00 the Medical morning. Branch lisinopriL 2021-0 Yes [id number] 10mg Take 1 [facility] nivers 10 mg 9-27 tablet by ity of tablet 00:00: mouth in [place] 00 the Medical morning. Branch venlafaxine 2021-0 Yes [id number] 75mg Take 1 [facility] XR 75 mg 24 9-27 capsule by it y of hr capsule 00:00: mouth [place] 00 daily with Medical breakfast. Branch tamsulosin 2021-0 Yes [id number] .4mg Take 1 [facility] 0.4 mg 24 9-27 capsule by ity of hr capsule 00:00: mouth in [facility] as 00 the Medical morning. Branch lisinopriL 2021-0 Yes [id number] 10mg Take 1 [facility] nivers 10 mg 9-27 tablet by ity of tablet 00:00: mouth in [place] 00 the Medical morning. Branch venlafaxine 2-0 Yes [id number] 75mg Take 1 [facility] XR 75 mg 24 9-27 capsule by it y of hr capsule 00:00: mouth [place] 00 daily with Medical breakfast. Branch tamsulosin 2022-0 Yes [id number] .4mg Take 1 [facility] 0.4 mg 24 9-27 capsule by ity of hr capsule 00:00: mouth in [place] 00 the Medical morning. Branch lisinopriL 2021-0 Yes [id number] 10mg Take 1 [facility] 10 mg 9-27 tablet by ity of tablet 00:00: mouth in [place] 00 the Medical morning. Branch venlafaxine 2021-0 Yes [id number] 75mg Take 1 [facility] XR 75 mg 24 9-27 capsule by it y of hr capsule 00:00: mouth [place] 00 daily with Medical breakfast. Branch tamsulosin 2021-0 Yes [id number] .4mg Take 1 [facility] 0.4 mg 24 9-27 capsule by ity of hr capsule 00:00: mouth in [place] 00 the Medical morning. Branch venlafaxine 2021-0 Yes [id number] 75mg Take 1 [facility] XR 75 mg 24 9-27 capsule by it y of hr capsule 00:00: mouth [place] 00 daily with Medical breakfast. Branch tamsulosin 2021-0 Yes [id number] .4mg Take 1 [facility] 0.4 mg 24 9-27 capsule by ity of hr capsule 00:00: mouth in [place] 00 the Medical morning. Branch venlafaxine 2021-0 Yes [id number] 75mg Take 1 [facility] XR 75 mg 24 9-27 capsule by it y of hr capsule 00:00: mouth [place] 00 daily with Medical breakfast. Branch tamsulosin 2021-0 Yes [id number] .4mg Take 1 [facility] 0.4 mg 24 9-27 capsule by ity of hr capsule 00:00: mouth in [place] 00 the Medical morning. Branch venlafaxine 2021-0 Yes [id number] 75mg Take 1 [facility] XR 75 mg 24 9-27 capsule by it y of hr capsule 00:00: mouth [place] 00 daily with Medical breakfast. Branch tamsulosin 2021-0 Yes [id number] .4mg Take 1 [facility] 0.4 mg 24 9-27 capsule by ity of hr capsule 00:00: mouth in [place] 00 the Medical morning. Branch venlafaxine 2021-0 Yes [id number] 75mg Take 1 [facility] XR 75 mg 24 9-27 capsule by it y of hr capsule 00:00: mouth [place] 00 daily with Medical breakfast. Branch tamsulosin 2-0 Yes [id number] .4mg Take 1 [facility] 0.4 mg 24 9-27 capsule by ity of hr capsule 00:00: mouth in [place] 00 the Medical morning. Branch venlafaxine 2-0 Yes [id number] 75mg Take 1 [facility] XR 75 mg 24 9-27 capsule by it y of hr capsule 00:00: mouth [place] 00 daily with Medical breakfast. Branch tamsulosin 2-0 Yes [id number] .4mg Take 1 [facility] 0.4 mg 24 9-27 capsule by ity of hr capsule 00:00: mouth in [place] 00 the Medical morning. Branch venlafaxine 2-0 Yes [id number] 75mg Take 1 [facility] XR 75 mg 24 9-27 capsule by it y of hr capsule 00:00: mouth [place] 00 daily with Medical breakfast. Branch tamsulosin 2-0 Yes [id number] .4mg Take 1 [facility] 0.4 mg 24 9-27 capsule by ity of hr capsule 00:00: mouth in [place] 00 the Medical morning. Branch venlafaxine 2021-0 Yes [id number] 75mg Take 1 [facility] XR 75 mg 24 9-27 capsule by it y of hr capsule 00:00: mouth [place] 00 daily with Medical breakfast. Branch tamsulosin 2021-0 Yes [id number] .4mg Take 1 [facility] 0.4 mg 24 9-27 capsule by ity of hr capsule 00:00: mouth in [place] 00 the Medical morning. Branch venlafaxine 2-0 Yes [id number] 75mg Take 1 [facility] XR 75 mg 24 9-27 capsule by it y of hr capsule 00:00: mouth [place] 00 daily with Medical breakfast. Branch tamsulosin 2-0 Yes [id number] .4mg Take 1 [facility] 0.4 mg 24 9-27 capsule by ity of hr capsule 00:00: mouth in [place] 00 the Medical morning. Branch venlafaxine 2-0 Yes [id number] 75mg Take 1 [facility] XR 75 mg 24 9-27 capsule by it y of hr capsule 00:00: mouth [place] 00 daily with Medical breakfast. Branch tamsulosin 2-0 Yes [id number] .4mg Take 1 [facility] 0.4 mg 24 9-27 capsule by ity of hr capsule 00:00: mouth in [place] 00 the Medical morning. Branch venlafaxine 2021-0 Yes [id number] 75mg Take 1 [facility] XR 75 mg 24 9-27 capsule by it y of hr capsule 00:00: mouth [place] 00 daily with Medical breakfast. Branch tamsulosin 2021-0 Yes [id number] .4mg Take 1 [facility]ivers 0.4 mg 24 9-27 capsule by ity of hr capsule 00:00: mouth in [place] 00 the Medical morning. Branch venlafaxine 2021-0 Yes [id number] 75mg Take 1 [facility] XR 75 mg 24 9-27 capsule by it y of hr capsule 00:00: mouth [place] 00 daily with Medical breakfast. Branch tamsulosin 2021-0 Yes [id number] .4mg Take 1 [facility]ivers 0.4 mg 24 9-27 capsule by ity of hr capsule 00:00: mouth in [place] 00 the Medical morning. Branch venlafaxine 2021-0 Yes [id number] 75mg Take 1 [facility] XR 75 mg 24 9-27 capsule by it y of hr capsule 00:00: mouth [place] 00 daily with Medical breakfast. Branch tamsulosin 2021-0 Yes [id number] .4mg Take 1 [facility]ivers 0.4 mg 24 9-27 capsule by ity of hr capsule 00:00: mouth in [place] 00 the Medical morning. Branch venlafaxine 2021-0 Yes [id number] 75mg Take 1 [facility] XR 75 mg 24 9-27 capsule by it y of hr capsule 00:00: mouth [place] 00 daily with Medical breakfast. Branch tamsulosin 2021-0 Yes [id number] .4mg Take 1 [facility]ivers 0.4 mg 24 9-27 capsule by ity of hr capsule 00:00: mouth in [place] 00 the Medical morning. Branch venlafaxine 2021-0 Yes [id number] 75mg Take 1 [facility] XR 75 mg 24 9-27 capsule by it y of hr capsule 00:00: mouth [place] 00 daily with Medical breakfast. Branch tamsulosin 2021-0 Yes [id number] .4mg Take 1 U nivers 0.4 mg 24 9-27 capsule by ity of hr capsule 00:00: mouth in [place] 00 the Medical morning. Branch venlafaxine 2021-0 Yes [id number] 75mg Take 1 [facility] XR 75 mg 24 9-27 capsule by it y of hr capsule 00:00: mouth [place] 00 daily with Medical breakfast. Branch tamsulosin 2021-0 Yes [id number] .4mg Take 1 U nivers 0.4 mg 24 9-27 capsule by ity of hr capsule 00:00: mouth in [place] 00 the Medical morning. Branch venlafaxine 2021-0 Yes [id number] 75mg Take 1 [facility] XR 75 mg 24 9-27 capsule by it y of hr capsule 00:00: mouth [place] 00 daily with Medical breakfast. Branch tamsulosin 2021-0 Yes [id number] .4mg Take 1 [facility] nivers 0.4 mg 24 9-27 capsule by ity of hr capsule 00:00: mouth in [place] 00 the Medical morning. Branch venlafaxine 2021-0 Yes [id number] 75mg Take 1 [facility] XR 75 mg 24 9-27 capsule by it y of hr capsule 00:00: mouth [place] 00 daily with Medical breakfast. Branch tamsulosin 2021-0 Yes [id number] .4mg Take 1 U nivers 0.4 mg 24 9-27 capsule by ity of hr capsule 00:00: mouth in [place] 00 the Medical morning. Branch venlafaxine 2021-0 Yes [id number] 75mg Take 1 [facility] XR 75 mg 24 9-27 capsule by it y of hr capsule 00:00: mouth [place] 00 daily with Medical breakfast. Branch tamsulosin 2021-0 Yes [id number] .4mg Take 1 [facility] nivers 0.4 mg 24 9-27 capsule by ity of hr capsule 00:00: mouth in [place] 00 the Medical morning. Branch venlafaxine 2021-0 Yes [id number] 75mg Take 1 [facility] XR 75 mg 24 9-27 capsule by it y of hr capsule 00:00: mouth [place] 00 daily with Medical breakfast. Branch tamsulosin 2021-0 Yes [id number] .4mg Take 1 U nivers 0.4 mg 24 9-27 capsule by ity of hr capsule 00:00: mouth in [place] 00 the Medical morning. Branch venlafaxine 2021-0 Yes [id number] 75mg Take 1 [facility] XR 75 mg 24 9-27 capsule by it y of hr capsule 00:00: mouth [place] 00 daily with Medical breakfast. Branch tamsulosin 2-0 Yes [id number] .4mg Take 1 U nivers 0.4 mg 24 9-27 capsule by ity of hr capsule 00:00: mouth in [place] 00 the Medical morning. Branch venlafaxine 2-0 Yes [id number] 75mg Take 1 [facility] XR 75 mg 24 9-27 capsule by it y of hr capsule 00:00: mouth [place] 00 daily with Medical breakfast. Branch tamsulosin 2-0 Yes [id number] .4mg Take 1 U nivers 0.4 mg 24 9-27 capsule by ity of hr capsule 00:00: mouth in [place] 00 the Medical morning. Branch venlafaxine 2-0 Yes [id number] 75mg Take 1 [facility] XR 75 mg 24 9-27 capsule by it y of hr capsule 00:00: mouth 00 daily with Medical breakfast. Branch tamsulosin 2-0 Yes [id number] .4mg Take 1 [facility] nivers 0.4 mg 24 9-27 capsule by ity of hr capsule 00:00: mouth in [place] 00 the Medical morning. Branch venlafaxine 2-0 Yes [id number] 75mg Take 1 [facility] XR 75 mg 24 9-27 capsule by it y of hr capsule 00:00: mouth 00 daily with Medical breakfast. Branch tamsulosin 2-0 Yes [id number] .4mg Take 1 [facility] nivers 0.4 mg 24 9-27 capsule by ity of hr capsule 00:00: mouth in [place] 00 the Medical morning. Branch tamsulosin 2-0 Yes [id number] .4mg Take 1 [facility] nivers 0.4 mg 24 9-27 capsule by ity of hr capsule 00:00: mouth in [place] 00 the Medical morning. Branch tamsulosin 2022-0 Yes [id number] .4mg Take 1 [facility] nivers 0.4 mg 24 9-27 capsule by ity of hr capsule 00:00: mouth in [place] 00 the Medical morning. Branch tamsulosin 2022-0 Yes [id number] .4mg Take 1 U nivers 0.4 mg 24 9-27 capsule by ity of hr capsule 00:00: mouth in [place] 00 the Medical morning. Branch tamsulosin 2022-0 Yes [id number] .4mg Take 1 [facility]ivers 0.4 mg 24 9-27 capsule by ity of hr capsule 00:00: mouth in [place] 00 the Medical morning. Branch tamsulosin 2-0 Yes [id number] .4mg Take 1 [facility]ivers 0.4 mg 24 9-27 capsule by ity of hr capsule 00:00: mouth in [place] 00 the Medical morning. Branch tamsulosin 2-0 Yes [id number] .4mg Take 1 [facility] nivers 0.4 mg 24 9-27 capsule by ity of hr capsule 00:00: mouth in [place] 00 the Medical morning. Branch tamsulosin 2-0 Yes [id number] .4mg Take 1 [facility]ivers 0.4 mg 24 9-27 capsule by ity of hr capsule 00:00: mouth in [place] 00 the Medical morning. Branch tamsulosin 2-0 Yes [id number] .4mg Take 1 [facility]ivers 0.4 mg 24 9-27 capsule by ity of hr capsule 00:00: mouth in [place] 00 the Medical morning. Branch tamsulosin 2021-0 Yes [id number] .4mg Take 1 [facility]ivers 0.4 mg 24 9-27 capsule by ity of hr capsule 00:00: mouth in [place] 00 the Medical morning. Branch tamsulosin 2-0 Yes [id number] .4mg Take 1 [facility]ivers 0.4 mg 24 9-27 capsule by ity of hr capsule 00:00: mouth in [place] 00 the Medical morning. Branch tamsulosin 2-0 Yes [id number] .4mg Take 1 [facility] nivers 0.4 mg 24 9-27 capsule by ity of hr capsule 00:00: mouth in [place] 00 the Medical morning. Branch tamsulosin 2-0 Yes [id number] .4mg Take 1 [facility] nivers 0.4 mg 24 9-27 capsule by ity of hr capsule 00:00: mouth in [place] 00 the Medical morning. Branch venlafaxine 2021-0 2022- No [id number] 75mg Take 1 [facility] XR 75 mg 24 9-27 05-09 capsule by i ty of hr capsule 00:00: 00:00 mouth [place] 00 :00 daily with Medical breakfast. Branch venlafaxine 2021-2022- No [id number] 75mg Take 1 [facility] XR 75 mg 24 06-22 0509 capsule by i ty of hr capsule 00:00: 00:00 mouth [place] 00 :00 daily with Medical breakfast. Branch lisinopriL 2021- No [id number] 10mg Take 1 [facility] 10 mg 06-22 tablet by ity of tablet 00:00: 00:00 mouth in [place] 00 :00 the Medical morning. Branch lisinopriL 2021- No [id number] 10mg Take 1 [facility] 10 mg 06-22 tablet by ity of tablet 00:00: 00:00 mouth in [place] 00 :00 the Medical morning. Branch metoprolol 2021- No [id number] 25mg Take 1 [facility] tartrate 25 06-22 tablet by it y of mg tablet 00:00: 00:00 mouth in [facility] as 00 :00 the Medical morning Branch and 1 tablet in the evening. metoprolol 2021- No [id number] 25mg Take 1 [facility] tartrate 25 06-22 tablet by it y of mg tablet 00:00: 00:00 mouth in [place] as 00 :00 the Medical morning Branch and 1 tablet in the evening. citalopram Yes [id number] 20mg Take 1 [facility] 20 mg 8-24 tablet by ity of tablet 00:00: mouth in [place] 00 the Medical morning. Branch ARIPiprazol Yes [id number] 5mg Take 1 [facility] e (ABILIFY) 8-24 tablet by ity of 5 mg tablet 00:00: mouth in [place] 00 the Medical morning. Branch citalopram 2021- No [id number] 20mg Take 1 [facility] 20 mg 8-06-22 tablet by ity of tablet 00:00: 00:00 mouth in [place] 00 :00 the Medical morning. Branch ARIPiprazol 2021- No [id number] 5mg Take 1 [facility] e (ABILIFY) 8-06-22 tablet by it y of 5 mg tablet 00:00: 00:00 [place] :00 the Medical morning. Branch citalopram 2021- No [id number] 20mg Take 1 [facility] 20 mg 8-24 -27 tablet by ity of tablet 00:00: 00:00 mouth in [place] 00 :00 the Medical morning. Branch ARIPiprazol 2021- No [id number] 5mg Take 1 [facility] e (ABILIFY) -06-22 tablet by it y of 5 mg tablet 00:00: 00:00 mouth in [place] 00 :00 the Medical morning. Branch ARIPiprazol Yes [id number] 5mg Take 1 [facility] e (ABILIFY) 5-26 tablet by ity of 5 mg tablet 00:00: mouth [place] 00 daily. Medical Branch ARIPiprazol 2021- No [id number] 5mg Take 1 [facility] e (ABILIFY) -26 - tablet by it y of 5 mg tablet 00:00: 00:[place] 00 :00 daily. Medical Branch citalopram Yes [id number] 20mg Take 1 [facility] 20 mg 5-23 tablet by ity of tablet 00:00: mouth [place] 00 daily. Medical Branch citalopram Yes [id number] 20mg Take 1 [facility] 20 mg 5-23 tablet by ity of tablet 00:00: mouth [place] 00 daily. Medical Branch citalopram 2021- No [id number] 20mg Take 1 [facility] 20 mg 5-23 -24 tablet by ity of tablet 00:00: 00:00 mouth [place] 00 :00 daily. Medical Branch atorvastati Yes [id number] 80mg Take 1 [facility] n 80 mg 4-26 tablet by ity of tablet 00:00: mouth at [place] 00 bedtime. Medical Branch atorvastati Yes [id number] 80mg Take 1 [facility] n 80 mg 4-26 tablet by ity of tablet 00:00: mouth at [place] 00 bedtime. Medical Branch atorvastati Yes [id number] 80mg Take 1 [facility] n 80 mg 4-26 tablet by ity of tablet 00:00: mouth at [place] 00 bedtime. Medical Branch atorvastati Yes [id number] 80mg Take 1 [facility] n 80 mg 4-26 tablet by ity of tablet 00:00: mouth at [place] 00 bedtime. Medical Branch atorvastati 2021- No [id number] 80mg Take 1 [facility] n 80 mg 01-19 tablet by ity of tablet 00:00: 00:00 mouth at [place] 00 :00 bedtime. Medical Branch atorvastati 2021- No [id number] 80mg Take 1 [facility] n 80 mg 01-19 tablet by ity of tablet 00:00: 00:00 mouth at [place] 00 :00 bedtime. Medical Branch citalopram 2021- No 20mg Take 20 mg [facility] 20 mg 2-10 -10 by mouth ity of tablet 15:06: 00:00 daily. [place] 38 :00 [facility] Branch ARIPiprazol 2021- No 5mg Take 5 mg Univers e (ABILIFY) 2-10 -10 by mouth ity of 5 mg tablet 15:06: 00:00 daily. [facility] 38 :00 [facility] Branch aspirin 81 Yes 81mg Take 81 mg U nivers mg EC 2-10 by mouth ity of tablet 14:25: daily. [address] aspirin 81 Yes 81mg Take 81 mg U nivers mg EC 2-10 by mouth ity of tablet 14:25: daily. [address] aspirin 81 Yes 81mg Take 81 mg U nivers mg EC 2-10 by mouth ity of tablet 14:25: daily. [address] aspirin 81 Yes 81mg Take 81 mg U nivers mg EC 2-10 by mouth ity of tablet 14:25: daily. [address] aspirin 81 0 Yes 81mg Take 81 mg U nivers mg EC 2-10 by mouth ity of tablet 14:25: daily. [address] aspirin 81 0 Yes 81mg Take 81 mg U nivers mg EC 2-10 by mouth ity of tablet 14:25: daily. [address] citalopram 2021- No [id number] 20mg Take 1 [facility] 20 mg 2-10 05-12 tablet by ity of tablet 00:00: 04:59 mouth [place] 00 :00 daily for Medical 90 days. Branch ARIPiprazol 2021- No [id number] 5mg Take 1 [facility] e (ABILIFY) 2-10 05-12 tablet by it y of 5 mg tablet 00:00: 04:59 [place] 00 :00 daily for Medical 90 days. [place] citalopram 2021- No [id number] 20mg Take 1 [facility] 20 mg 2-10 05-12 tablet by ity of tablet 00:00: 04:59 mouth [place] 00 :00 daily for Medical 90 days. [place] ARIPiprazol 2021- No [id number] 5mg Take 1 [facility] e (ABILIFY) 2-10 05-12 tablet by it y of 5 mg tablet 00:00: 04:59 [place] 00 :00 daily for Medical 90 days. [place] citalopram 2021- No [id number] 20mg Take 1 [facility] 20 mg 2-10 05-12 tablet by ity of tablet 00:00: 04:59 mouth [place] 00 :00 daily for Medical 90 days. [place] ARIPiprazol 2021- No [id number] 5mg Take 1 [facility] e (ABILIFY) 2-10 05-12 tablet by it y of 5 mg tablet 00:00: 04:59 mouth [place] 00 :00 daily for Medical 90 days. [place] ATORVASTATI Yes [id number] TAKE 1 [facility] N 80 mg 1-20 TABLET BY ity of tablet 00:00: MOUTH [place] 00 EVERYDAY Medical AT BEDTIME [place] ATORVASTATI Yes [id number] TAKE 1 [facility] N 80 mg 1-20 TABLET BY ity of tablet 00:00: MOUTH [place] 00 EVERYDAY Medical AT BEDTIME [place] ATORVASTATI 2021- No [id number] TAKE 1 [facility] N 80 mg 1-20 04-26 TABLET BY ity of tablet 00:00: 00:00 MOUTH [place] 00 :00 EVERYDAY Medical AT BEDTIME [place] TAMSULOSIN Yes [id number] TAKE 1 U nivers 0.4 mg 24 1-14 CAPSULE BY ity of hr capsule 00:00: MOUTH [place] 00 EVERY DAY Medical Branch TAMSULOSIN Yes [id number] TAKE 1 U nivers 0.4 mg 24 1-14 CAPSULE BY ity of hr capsule 00:00: MOUTH [place] 00 EVERY DAY Medical Branch TAMSULOSIN 2-0 Yes [id number] TAKE 1 U nivers 0.4 mg 24 1-14 CAPSULE BY ity of hr capsule 00:00: MOUTH [place] 00 EVERY DAY Medical Branch TAMSULOSIN 2021-0 Yes [id number] TAKE 1 U nivers 0.4 mg 24 1-14 CAPSULE BY ity of hr capsule 00:00: MOUTH [place] 00 EVERY DAY Medical Branch TAMSULOSIN 2021-0 Yes [id number] TAKE 1 U nivers 0.4 mg 24 1-14 CAPSULE BY ity of hr capsule 00:00: MOUTH [place] 00 EVERY DAY Medical Branch TAMSULOSIN 2021-0 Yes [id number] TAKE 1 U nivers 0.4 mg 24 1-14 CAPSULE BY ity of hr capsule 00:00: MOUTH [place] 00 EVERY DAY Medical Branch TAMSULOSIN 2021-0 2- No [id number] TAKE 1 Univers 0.4 mg 24 1-14 -27 CAPSULE BY ity of hr capsule 00:00: 00:00 MOUTH [place] 00 :00 EVERY DAY Medical Branch TAMSULOSIN 2-0 2- No [id number] TAKE 1 [facility] 0.4 mg 24 1-14 -27 CAPSULE BY ity of hr capsule 00:00: 00:00 MOUTH [place] 00 :00 EVERY DAY Medical Branch GLIMEPIRIDE 2020-1 Yes [id number] TAKE 1 Univers 1 mg tablet 1-23 TABLET BY ity of 00:00: MOUTH [place] 00 EVERY DAY Medical WITH Branch BREAKFAST GLIMEPIRIDE 2020-09 Yes [id number] TAKE 1 Univers 1 mg tablet 1-23 TABLET BY ity of 00:00: MOUTH [place] 00 EVERY DAY Medical WITH Branch BREAKFAST GLIMEPIRIDE 2020-1 Yes [id number] TAKE 1 Univers 1 mg tablet 1-23 TABLET BY ity of 00:00: MOUTH [place] 00 EVERY DAY Medical WITH Branch BREAKFAST GLIMEPIRIDE 2020-1 Yes [id number] TAKE 1 Univers 1 mg tablet 1-23 TABLET BY ity of 00:00: MOUTH [place] 00 EVERY DAY Medical WITH Branch BREAKFAST GLIMEPIRIDE 1 Yes [id number] TAKE 1 Univers 1 mg tablet 1-23 TABLET BY ity of 00:00: MOUTH [place] 00 EVERY DAY Medical WITH Branch BREAKFAST GLIMEPIRIDE 2020- Yes [id number] TAKE 1 Univers 1 mg tablet 1-23 TABLET BY ity of 00:00: MOUTH 00 EVERY DAY Medical WITH Branch BREAKFAST GLIMEPIRIDE 2020-09- No [id number] TAKE 1 [facility] 1 mg tablet 10-18 TABLET BY it y of 00:00: 00:00 MOUTH [place] 00 :00 EVERY DAY Medical WITH Branch BREAKFAST GLIMEPIRIDE 2020-09- No [id number] TAKE 1 [facility] 1 mg tablet 10-18 TABLET BY it y of 00:00: 00:00 MOUTH [place] 00 :00 EVERY DAY Medical WITH Branch BREAKFAST ALLOPURINOL 2020-09 Yes TAKE 1 Univ ers 100 mg 0-21 TABLET BY ity of tablet 00:00: MOUTH 00 EVERY DAY Medical Branch ALLOPURINOL 2020-09 Yes TAKE 1 Univ ers 100 mg 0-21 TABLET BY ity of tablet 00:00: MOUTH [place] 00 EVERY DAY Medical Branch ALLOPURINOL 2020-09 Yes TAKE 1 Univ ers 100 mg 0-21 TABLET BY ity of tablet 00:00: MOUTH [place] 00 EVERY DAY Medical Branch ALLOPURINOL 2020-09 Yes TAKE 1 Univ ers 100 mg 0-21 TABLET BY ity of tablet 00:00: MOUTH [place] 00 EVERY DAY Medical Branch ALLOPURINOL 2020-09 Yes TAKE 1 Univ ers 100 mg 0-21 TABLET BY ity of tablet 00:00: MOUTH [place] 00 EVERY DAY Medical Branch ALLOPURINOL 2020-09 Yes TAKE 1 Univ ers 100 mg 0-21 TABLET BY ity of tablet 00:00: MOUTH [place] 00 EVERY DAY Medical Branch ALLOPURINOL 2020-09- No TAKE 1 Uni vers 100 mg 0-21 -27 TABLET BY ity of tablet 00:00: 00:00 MOUTH [place] 00 :00 EVERY DAY Medical Branch ALLOPURINOL 2020-09- No TAKE 1 Uni vers 100 mg 0-21 -27 TABLET BY ity of tablet 00:00: 00:00 MOUTH [place] 00 :00 EVERY DAY Medical Branch famotidine 2020-0 Yes [id number] 20mg Take 1 [facility] 20 mg 9-23 tablet by ity of tablet 00:00: mouth 2 [place] 00 (two) Medical times Branch daily. famotidine 2020-0 Yes [id number] 20mg Take 1 [facility] 20 mg 9-23 tablet by ity of tablet 00:00: mouth 2 [place] 00 (two) Medical times Branch daily. famotidine 2020-0 Yes [id number] 20mg Take 1 [facility] 20 mg 9-23 tablet by ity of tablet 00:00: mouth 2 [place] 00 (two) Medical times Branch daily. famotidine 1-0 Yes [id number] 20mg Take 1 [facility] 20 mg 9-23 tablet by ity of tablet 00:00: mouth 2 [place] 00 (two) Medical times Branch daily. famotidine 1-0 Yes [id number] 20mg Take 1 [facility] 20 mg 9-23 tablet by ity of tablet 00:00: mouth 2 [place] 00 (two) Medical times Branch daily. famotidine 2020-0 Yes [id number] 20mg Take 1 [facility] 20 mg 9-23 tablet by ity of tablet 00:00: mouth [address] [place] [address] 00 (two) Medical times Branch daily. famotidine 2020-0 2022- No [id number] 20mg Take 1 [facility] 20 mg 9-23 09-27 tablet by ity of tablet 00:00: 00:00 mouth 2 [place] 00 :00 (two) Medical times Branch daily. famotidine 2020-0 2022- No [id number] 20mg Take 1 [facility] 20 mg 9-23 09-27 tablet by ity of tablet 00:00: 00:00 mouth 2 [place] 00 :00 (two) Medical times Branch daily. clopidogreL 1-0 Yes [id number] 75mg Take 1 [facility] 75 mg 7-28 tablet by ity of tablet 00:00: mouth [place] 00 daily. Medical Branch clopidogreL 2021-0 Yes [id number] 75mg Take 1 [facility] 75 mg 7-28 tablet by ity of tablet 00:00: mouth [place] 00 daily. Medical Branch clopidogreL 2021-0 Yes [id number] 75mg Take 1 [facility] 75 mg 7-28 tablet by ity of tablet 00:00: mouth [place] 00 daily. Medical Branch clopidogreL 2021-0 Yes [id number] 75mg Take 1 [facility] 75 mg 7-28 tablet by ity of tablet 00:00: mouth [place] 00 daily. Medical Branch clopidogreL 2021-0 Yes [id number] 75mg Take 1 [facility] 75 mg 7-28 tablet by ity of tablet 00:00: mouth [place] 00 daily. Medical Branch clopidogreL 2021-0 Yes [id number] 75mg Take 1 [facility] 75 mg 7-28 tablet by ity of tablet 00:00: mouth [place] 00 daily. Medical Branch clopidogreL 0 2021- No [id number] 75mg Take 1 [facility] 75 mg 7-23 06- tablet by ity of tablet 00:00: 00:00 mouth [place] 00 :00 daily. Medical Branch clopidogreL 0 2021- No [id number] 75mg Take 1 [facility] 75 mg 7-23 06- tablet by ity of tablet 00:00: 00:00 mouth [place] 00 :00 daily. Medical Branch amLODIPine 0 Yes [id number] 10mg Take 1 U nivers 10 mg 7-07 tablet by ity of tablet 00:00: mouth [place] 00 daily. Medical Branch amLODIPine 0 Yes [id number] 10mg Take 1 U nivers 10 mg 7-07 tablet by ity of tablet 00:00: mouth [place] 00 daily. Medical Branch amLODIPine Yes [id number] 10mg Take 1 U nivers 10 mg 7-07 tablet by ity of tablet 00:00: mouth [place] 00 daily. Medical Branch amLODIPine 0 Yes [id number] 10mg Take 1 U nivers 10 mg 7-07 tablet by ity of tablet 00:00: mouth [place] 00 daily. Medical Branch amLODIPine 0 Yes [id number] 10mg Take 1 U nivers 10 mg 7-07 tablet by ity of tablet 00:00: mouth [place] 00 daily. Medical Branch amLODIPine 0 Yes [id number] 10mg Take 1 U nivers 10 mg 7-07 tablet by ity of tablet 00:00: mouth [place] 00 daily. Medical Branch amLODIPine 0 2021- No [id number] 10mg Take 1 [facility] 10 mg 7-06-22 tablet by ity of tablet 00:00: 00:00 mouth [place] 00 :00 daily. Medical Branch amLODIPine 0 2021- No [id number] 10mg Take 1 [facility] 10 mg 7-04 03-27 tablet by ity of tablet 00:00: 00:00 mouth [place] 00 :00 daily. Medical Branch Blood-Gluco 2016-09 Yes Use as Univ ers se Meter 10-02 directed ity of (ONETOUCH 00:00: [place] VERIO blood Medical SYSTEM) glucose Branch [facility] monitoring for ICD code of: E11.9 blood [...] for ICD code of: E11.9 blood sugar 2017 Yes Use as Univ ers diagnostic 1-07 [...] for ICD code of: E11.9 blood sugar 2017 Yes Use as Univ ers diagnostic 1-07 [...] 00:00: for once a [place] LANCETS) 30 day blood Med ical gauge Misc glucose [...] Yes Use as Univ ers se Meter 10-02 directed ity of (ONETOUCH 00:00: for once [...] 2016-09 Yes Use as Univers Device with 10-02 directed ity of Lancets 00:00: for [place] (ONE TOUCH 00 day blood Medi chrsitelle DELICA) Kit glucose Branc h monitoring for ICD code of: E11.9 lancets 2016-09 Yes Use as Univers (ONETOUCH 10-02 directed ity of DELICA 00:00: for once [...] Immunizations Ordered Filled Immunization Date Status Comments [facility] e Immunization Name Name SARS-COV-2 COVID-19 2022-06-22 [...] Completed Unive rsity of PFIZER VACCINE 00:00:00 [facility] Branch SARS-COV-2 COVID-19 2021-01-10 Completed Unive rsity of PFIZER VACCINE 00:00:00 [facility] Branch SARS-COV-2 COVID-19 2021-01-10 Completed Unive rsity of PFIZER VACCINE 00:00:00 [facility] [place] [facility] SARS-COV-2 COVID-19 2021-01-10 Completed Unive rsity of PFIZER VACCINE 00:00:00 [facility] Branch SARS-COV-2 COVID-19 2021-01-10 Completed Unive rsity of PFIZER VACCINE 00:00:00 [facility] Branch SARS-COV-2 COVID-19 2021-01-10 Completed Unive rsity of PFIZER VACCINE 00:00:00 [place] [facility] Branch SARS-COV-2 COVID-19 2021-01-10 Completed Unive rsity of PFIZER VACCINE 00:00:00 [facility] Branch SARS-COV-2 COVID-19 2021-01-10 Completed Unive rsity of PFIZER VACCINE 00:00:00 [facility] Branch SARS-COV-2 COVID-19 2021-01-10 Completed Unive rsity of PFIZER VACCINE 00:00:00 [facility] Branch SARS-COV-2 COVID-19 2021-01-10 Completed Unive rsity of PFIZER VACCINE 00:00:00 [facility] Branch SARS-COV-2 COVID-19 2021-01-10 Completed Unive rsity of PFIZER VACCINE 00:00:00 [facility] Branch SARS-COV-2 COVID-19 2021-01-10 Completed Unive rsity of PFIZER VACCINE 00:00:00 [facility] Branch SARS-COV-2 COVID-19 2021-01-10 Completed Unive rsity of PFIZER VACCINE 00:00:00 [facility] Branch SARS-COV-2 COVID-19 2021-01-10 Completed Unive rsity of PFIZER VACCINE 00:00:00 [facility] Branch SARS-COV-2 COVID-19 2021-01-10 Completed Unive rsity of PFIZER VACCINE 00:00:00 [facility] Branch SARS-COV-2 COVID-19 2021-01-10 Completed Unive rsity of PFIZER VACCINE 00:00:00 [facility] Branch SARS-COV-2 COVID-19 2021-01-10 Completed Unive rsity of PFIZER VACCINE 00:00:00 [facility] Branch SARS-COV-2 COVID-19 2021-01-10 Completed Unive rsity of PFIZER VACCINE 00:00:00 [facility] Branch SARS-COV-2 COVID-19 2021-01-10 Completed Unive rsity of PFIZER VACCINE 00:00:00 [facility] Branch SARS-COV-2 COVID-19 2021-01-10 Completed Unive rsity of PFIZER VACCINE 00:00:00 [facility] Branch SARS-COV-2 COVID-19 2021-01-10 Completed Unive rsity of PFIZER VACCINE 00:00:00 [facility] [place] [facility] SARS-COV-2 COVID-19 2021-01-10 Completed Unive rsity of PFIZER VACCINE 00:00:00 [facility] Branch SARS-COV-2 COVID-19 2021-01-10 Completed Unive rsity of PFIZER VACCINE 00:00:00 [facility] [place] [facility] SARS-COV-2 COVID-19 2021-01-10 Completed Unive rsity of PFIZER VACCINE 00:00:00 [facility] Branch SARS-COV-2 COVID-19 2021-01-10 Completed Unive rsity of PFIZER VACCINE 00:00:00 [facility] SARS-COV-2 COVID-19 2021-01-10 Completed Unive rsity of PFIZER VACCINE 00:00:00 [facility] [place] [facility] SARS-COV-2 COVID-19 2021-01-10 Completed Unive rsity of PFIZER VACCINE 00:00:00 [facility] [place] [facility] SARS-COV-2 COVID-19 2021-01-10 Completed Unive rsity of PFIZER VACCINE 00:00:00 [facility] [place] [facility] SARS-COV-2 COVID-19 2021-01-10 Completed Unive rsity of PFIZER VACCINE 00:00:00 [facility] [place] [facility] SARS-COV-2 COVID-19 2021-01-10 Completed Unive rsity of PFIZER VACCINE 00:00:00 [facility] [place] [facility] SARS-COV-2 COVID-19 2021-01-10 Completed Unive rsity of PFIZER VACCINE 00:00:00 [facility] [place] [facility] SARS-COV-2 COVID-19 2021-01-10 Completed Unive rsity of PFIZER VACCINE 00:00:00 [facility] Branch SARS-COV-2 COVID-19 2021-01-10 Completed Unive rsity of PFIZER VACCINE 00:00:00 [facility] SARS-COV-2 COVID-19 2021-01-10 Completed Unive rsity of PFIZER VACCINE 00:00:00 [facility] [place] [facility] SARS-COV-2 COVID-19 2021-01-10 Completed Unive rsity of PFIZER VACCINE 00:00:00 [facility] [place] [facility] SARS-COV-2 COVID-19 2021-01-10 Completed Unive rsity of PFIZER VACCINE 00:00:00 [facility] Branch SARS-COV-2 COVID-19 2021-01-10 Completed Unive rsity of PFIZER VACCINE 00:00:00 [facility] SARS-COV-2 COVID-19 2021-01-10 Completed Unive rsity of PFIZER VACCINE 00:00:00 [facility] SARS-COV-2 COVID-19 2021-01-10 Completed Unive rsity of PFIZER VACCINE 00:00:00 [facility] SARS-COV-2 COVID-19 2021-01-10 Completed Unive rsity of PFIZER VACCINE 00:00:00 [facility] SARS-COV-2 COVID-19 2021-01-10 Completed Unive rsity of PFIZER VACCINE 00:00:00 [facility] SARS-COV-2 COVID-19 2021-01-10 Completed Unive rsity of PFIZER VACCINE 00:00:00 [facility] SARS-COV-2 COVID-19 2021-01-10 Completed Unive rsity of PFIZER VACCINE 00:00:00 [facility] SARS-COV-2 COVID-19 2021-01-10 Completed Unive rsity of PFIZER VACCINE 00:00:00 [facility] SARS-COV-2 COVID-19 2021-01-10 Completed Unive rsity of PFIZER VACCINE 00:00:00 [facility] SARS-COV-2 COVID-19 2021-01-10 Completed Unive rsity of PFIZER VACCINE 00:00:00 [facility] SARS-COV-2 COVID-19 2021-01-10 Completed Unive rsity of PFIZER VACCINE 00:00:00 [facility] SARS-COV-2 COVID-19 2021-01-10 Completed Unive rsity of PFIZER VACCINE 00:00:00 [facility] SARS-COV-2 COVID-19 2021-01-10 Completed Unive rsity of PFIZER VACCINE 00:00:00 [facility] SARS-COV-2 COVID-19 2021-01-10 Completed Unive rsity of PFIZER VACCINE 00:00:00 [facility] [place] [facility] SARS-COV-2 COVID-19 2021-01-10 Completed Unive rsity of PFIZER VACCINE 00:00:00 [facility] Branch SARS-COV-2 COVID-19 2021-01-10 Completed Unive rsity of PFIZER VACCINE 00:00:00 [facility] SARS-COV-2 COVID-19 2021-01-10 Completed Unive rsity of PFIZER VACCINE 00:00:00 [place] [facility] Branch SARS-COV-2 COVID-19 2021-01-10 Completed Unive rsity of PFIZER VACCINE 00:00:00 [facility] Branch SARS-COV-2 COVID-19 2021-01-10 Completed Unive rsity of PFIZER VACCINE 00:00:00 [facility] SARS-COV-2 COVID-19 2020-12-20 Completed Unive rsity of PFIZER VACCINE 00:00:00 [facility] SARS-COV-2 COVID-19 2020-12-20 Completed Unive rsity of PFIZER VACCINE 00:00:00 [facility] SARS-COV-2 COVID-19 2020-12-20 Completed Unive rsity of PFIZER VACCINE 00:00:00 [facility] SARS-COV-2 COVID-19 2020-12-20 Completed Unive rsity of PFIZER VACCINE 00:00:00 [facility] SARS-COV-2 COVID-19 2020-12-20 Completed Unive rsity of PFIZER VACCINE 00:00:00 [facility] SARS-COV-2 COVID-19 2020-12-20 Completed Unive rsity of PFIZER VACCINE 00:00:00 [facility] SARS-COV-2 COVID-19 2020-12-20 Completed Unive rsity of PFIZER VACCINE 00:00:00 [facility] SARS-COV-2 COVID-19 2020-12-20 Completed Unive rsity of PFIZER VACCINE 00:00:00 [facility] Branch SARS-COV-2 COVID-19 2020-12-20 Completed Unive rsity of PFIZER VACCINE 00:00:00 [facility] SARS-COV-2 COVID-19 2020-12-20 Completed Unive rsity of PFIZER VACCINE 00:00:00 [facility] SARS-COV-2 COVID-19 2020-12-20 Completed Unive rsity of PFIZER VACCINE 00:00:00 [facility] SARS-COV-2 COVID-19 2020-12-20 Completed Unive rsity of PFIZER VACCINE 00:00:00 [facility] SARS-COV-2 COVID-19 2020-12-20 Completed Unive rsity of PFIZER VACCINE 00:00:00 [facility] SARS-COV-2 COVID-19 2020-12-20 Completed Unive rsity of PFIZER VACCINE 00:00:00 [facility] SARS-COV-2 COVID-19 2020-12-20 Completed Unive rsity of PFIZER VACCINE 00:00:00 [facility] SARS-COV-2 COVID-19 2020-12-20 Completed Unive rsity of PFIZER VACCINE 00:00:00 [facility] SARS-COV-2 COVID-19 2020-12-20 Completed Unive rsity of PFIZER VACCINE 00:00:00 [facility] SARS-COV-2 COVID-19 2020-12-20 Completed Unive rsity of PFIZER VACCINE 00:00:00 [facility] SARS-COV-2 COVID-19 2020-12-20 Completed Unive rsity of PFIZER VACCINE 00:00:00 [facility] SARS-COV-2 COVID-19 2020-12-20 Completed Unive rsity of PFIZER VACCINE 00:00:00 [facility] SARS-COV-2 COVID-19 2020-12-20 Completed Unive rsity of PFIZER VACCINE 00:00:00 [facility] SARS-COV-2 COVID-19 2020-12-20 Completed Unive rsity of PFIZER VACCINE 00:00:00 [facility] SARS-COV-2 COVID-19 2020-12-20 Completed Unive rsity of PFIZER VACCINE 00:00:00 [facility] SARS-COV-2 COVID-19 2020-12-20 Completed Unive rsity of PFIZER VACCINE 00:00:00 [facility] SARS-COV-2 COVID-19 2020-12-20 Completed Unive rsity of PFIZER VACCINE 00:00:00 [facility] SARS-COV-2 COVID-19 2020-12-20 Completed Unive rsity of PFIZER VACCINE 00:00:00 [facility] SARS-COV-2 COVID-19 2020-12-20 Completed Unive rsity of PFIZER VACCINE 00:00:00 [facility] SARS-COV-2 COVID-19 2020-12-20 Completed Unive rsity of PFIZER VACCINE 00:00:00 [facility] SARS-COV-2 COVID-19 2020-12-20 Completed Unive rsity of PFIZER VACCINE 00:00:00 [facility] SARS-COV-2 COVID-19 2020-12-20 Completed Unive rsity of PFIZER VACCINE 00:00:00 [facility] SARS-COV-2 COVID-19 2020-12-20 Completed Unive rsity of PFIZER VACCINE 00:00:00 [facility] SARS-COV-2 COVID-19 2020-12-20 Completed Unive rsity of PFIZER VACCINE 00:00:00 [facility] SARS-COV-2 COVID-19 2020-12-20 Completed Unive rsity of PFIZER VACCINE 00:00:00 [facility] SARS-COV-2 COVID-19 2020-12-20 Completed Unive rsity of PFIZER VACCINE 00:00:00 [facility] SARS-COV-2 COVID-19 2020-12-20 Completed Unive rsity of PFIZER VACCINE 00:00:00 [facility] SARS-COV-2 COVID-19 2020-12-20 Completed Unive rsity of PFIZER VACCINE 00:00:00 [facility] SARS-COV-2 COVID-19 2020-12-20 Completed Unive rsity of PFIZER VACCINE 00:00:00 [facility] SARS-COV-2 COVID-19 2020-12-20 Completed Unive rsity of PFIZER VACCINE 00:00:00 [facility] SARS-COV-2 COVID-19 2020-12-20 Completed [facility] of PFIZER VACCINE 00:00:00 [facility] SARS-COV-2 COVID-19 2020-12-20 Completed [facility] of PFIZER VACCINE 00:00:00 [facility] SARS-COV-2 COVID-19 2020-12-20 Completed [facility] of PFIZER VACCINE 00:00:00 [facility] SARS-COV-2 COVID-19 2020-12-20 Completed [facility] of PFIZER VACCINE 00:00:00 [facility] SARS-COV-2 COVID-19 2020-12-20 Completed [facility] of PFIZER VACCINE 00:00:00 [facility] SARS-COV-2 COVID-19 2020-12-20 Completed [facility] of PFIZER VACCINE 00:00:00 [facility] SARS-COV-2 COVID-19 2020-12-20 Completed [facility]ive rsity of PFIZER VACCINE 00:00:00 [facility] SARS-COV-2 COVID-19 2020-12-20 Completed [facility] of PFIZER VACCINE 00:00:00 [facility] SARS-COV-2 COVID-19 2020-12-20 Completed [facility] rs[facility] of PFIZER VACCINE 00:00:00 [facility] SARS-COV-2 COVID-19 2020-12-20 Completed [facility] rsity of PFIZER VACCINE 00:00:00 [facility] SARS-COV-2 COVID-19 2020-12-20 Completed [facility] of PFIZER VACCINE 00:00:00 [facility] SARS-COV-2 COVID-19 2020-12-20 Completed [facility] of PFIZER VACCINE 00:00:00 [facility] SARS-COV-2 COVID-19 2020-12-20 Completed [facility] of PFIZER VACCINE 00:00:00 [facility] SARS-COV-2 COVID-19 2020-12-20 Completed [facility] of PFIZER VACCINE 00:00:00 [facility] SARS-COV-2 COVID-19 2020-12-20 Completed [facility] of PFIZER VACCINE 00:00:00 [facility] SARS-COV-2 COVID-19 2020-12-20 Completed [facility] of PFIZER VACCINE 00:00:00 [facility] SARS-COV-2 COVID-19 2020-12-20 Completed [facility] rs[facility] of PFIZER VACCINE 00:00:00 [facility] Influenza Virus 2020-06-15 Completed Universit y of Vaccine 00:00:00 [facility] Influenza Virus 2020-06-15 Completed [facility]it y of Vaccine 00:00:00 [facility] Influenza Virus 2020-06-15 Completed [facility]it y of Vaccine 00:00:00 [facility] Influenza Virus 2020-06-15 Completed [facility]it y of Vaccine 00:00:00 [facility] Influenza Virus 2020-06-15 Completed [facility]it y of Vaccine 00:00:00 [facility] Influenza Virus 2020-06-15 Completed [facility]it y of Vaccine 00:00:00 [facility] Influenza Virus 2020-06-15 Completed [facility]it y of Vaccine 00:00:00 [facility] Influenza Virus 2020-06-15 Completed [facility]it y of Vaccine 00:00:00 [facility] Influenza Virus 2020-06-15 Completed [facility]it y of Vaccine 00:00:00 [facility] Influenza Virus 2020-06-15 Completed [facility]it y of Vaccine 00:00:00 [facility] Influenza Virus 2020-06-15 Completed [facility]it y of Vaccine 00:00:00 [facility] Influenza Virus 2020-06-15 Completed [facility]it y of Vaccine 00:00:00 [facility] Influenza Virus 2020-06-15 Completed [facility]it y of Vaccine 00:00:00 [facility] Influenza Virus 2020-06-15 Completed [facility]it y of Vaccine 00:00:00 [facility] Influenza Virus 2020-06-15 Completed [facility]it y of Vaccine 00:00:00 [facility] Influenza Virus 2020-06-15 Completed [facility]it y of Vaccine 00:00:00 [facility] Influenza Virus 2020-06-15 Completed [facility]it y of Vaccine 00:00:00 [facility] Influenza Virus 2020-06-15 Completed [facility] y of Vaccine 00:00:00 [facility] Influenza Virus 2020-06-15 Completed [facility]it y of Vaccine 00:00:00 [facility] Influenza Virus 2020-06-15 Completed [facility] y of Vaccine 00:00:00 [facility] Influenza Virus 2020-06-15 Completed [facility]it y of Vaccine 00:00:00 [facility] Influenza Virus 2020-06-15 Completed [facility] y of Vaccine 00:00:00 [facility] Influenza Virus 2020-06-15 Completed [facility] y of Vaccine 00:00:00 [facility] Influenza Virus 2020-06-15 Completed [facility] y of Vaccine 00:00:00 [facility] Influenza Virus 2020-06-15 Completed [facility] y of Vaccine 00:00:00 [facility] Influenza Virus 2020-06-15 Completed [facility] y of Vaccine 00:00:00 [facility] Influenza Virus 2020-06-15 Completed [facility] y of Vaccine 00:00:00 [facility] Influenza Virus 2020-06-15 Completed [facility] y of Vaccine 00:00:00 [facility] Influenza Virus 2020-06-15 Completed [facility]it y of Vaccine 00:00:00 [facility] Influenza Virus 2020-06-15 Completed [facility]it y of Vaccine 00:00:00 [facility] Influenza Virus 2020-06-15 Completed [facility]it y of Vaccine 00:00:00 [facility] Influenza Virus 2020-06-15 Completed [facility]it y of Vaccine 00:00:00 [facility] Influenza Virus 2020-06-15 Completed [facility]it y of Vaccine 00:00:00 [facility] Influenza Virus 2020-06-15 Completed [facility] y of Vaccine 00:00:00 [facility] Influenza Virus 2020-06-15 Completed [facility]it y of Vaccine 00:00:00 [facility] Influenza Virus 2020-06-15 Completed [facility]it y of Vaccine 00:00:00 [facility] Influenza Virus 2020-06-15 Completed [facility]it y of Vaccine 00:00:00 [facility] Influenza Virus 2020-06-15 Completed [facility]it y of Vaccine 00:00:00 [facility] Influenza Virus 2020-06-15 Completed [facility]it y of Vaccine 00:00:00 [facility] Influenza Virus 2020-06-15 Completed [facility]it y of Vaccine 00:00:00 [facility] Influenza Virus 2020-06-15 Completed [facility] y of Vaccine 00:00:00 [facility] Influenza Virus 2020-06-15 Completed [facility]it y of Vaccine 00:00:00 [facility] Influenza Virus 2020-06-15 Completed [facility]it y of Vaccine 00:00:00 [facility] Influenza Virus 2020-06-15 Completed [facility]it y of Vaccine 00:00:00 [facility] Influenza Virus 2020-06-15 Completed [facility]it y of Vaccine 00:00:00 [facility] Influenza Virus 2020-06-15 Completed [facility]it y of Vaccine 00:00:00 [facility] Influenza Virus 2020-06-15 Completed [facility]it y of Vaccine 00:00:00 [facility] Influenza Virus 2020-06-15 Completed [facility]it y of Vaccine 00:00:00 [facility] Influenza Virus 2020-06-15 Completed [facility]it y of Vaccine 00:00:00 [facility] Influenza Virus 2020-06-15 Completed [facility]it y of Vaccine 00:00:00 [facility] Influenza Virus 2020-06-15 Completed [facility]it y of Vaccine 00:00:00 [facility] Influenza Virus 2020-06-15 Completed [facility]it y of Vaccine 00:00:00 [facility] Influenza Virus 2020-06-15 Completed [facility]it y of Vaccine 00:00:00 [facility] Influenza Virus 2020-06-15 Completed [facility]it y of Vaccine 00:00:00 [facility] Influenza Virus 2020-06-15 Completed [facility]it y of Vaccine 00:00:00 [facility] TDAP 2018-05-30 Completed University of 00:00:00 [facility] TDAP 2018-05-30 Completed University of 00:00:00 [facility] TDAP 2018-05-30 Completed University of 00:00:00 [facility] TDAP 2018-05-30 Completed University of 00:00:00 [facility] TDAP 2018-05-30 Completed University of 00:00:00 [facility] TDAP 2018-05-30 Completed University of 00:00:00 [facility] TDAP 2018-05-30 Completed University of 00:00:00 [facility] TDAP 2018-05-30 Completed University of 00:00:00 [facility] TDAP 2018-05-30 Completed University of 00:00:00 [facility] TDAP 2018-05-30 Completed University of 00:00:00 [facility] TDAP 2018-05-30 Completed University of 00:00:00 [facility] TDAP 2018-05-30 Completed University of 00:00:00 [facility] TDAP 2018-05-30 Completed University of 00:00:00 [facility] TDAP 2018-05-30 Completed University of 00:00:00 [facility] TDAP 2018-05-30 Completed University of 00:00:00 [facility] TDAP 2018-05-30 Completed University of 00:00:00 [facility] TDAP 2018-05-30 Completed University of 00:00:00 [facility] TDAP 2018-05-30 Completed University of 00:00:00 [facility] TDAP 2018-05-30 Completed University of 00:00:00 [facility] TDAP 2018-05-30 Completed University of 00:00:00 [facility] TDAP 2018-05-30 Completed University of 00:00:00 [facility] TDAP 2018-05-30 Completed University of 00:00:00 [facility] TDAP 2018-05-30 Completed University of 00:00:00 [facility] TDAP 2018-05-30 Completed University of 00:00:00 [facility] TDAP 2018-05-30 Completed University of 00:00:00 [facility] TDAP 2018-05-30 Completed [facility] of 00:00:00 [facility] TDAP 2018-05-30 Completed University of 00:00:00 [facility] TDAP 2018-05-30 Completed University of 00:00:00 [facility] TDAP 2018-05-30 Completed University of 00:00:00 [facility] TDAP 2018-05-30 Completed University of 00:00:00 [facility] TDAP 2018-05-30 Completed University of 00:00:00 [facility] TDAP 2018-05-30 Completed University of 00:00:00 [facility] TDAP 2018-05-30 Completed University of 00:00:00 [facility] TDAP 2018-05-30 Completed University of 00:00:00 [facility] TDAP 2018-05-30 Completed University of 00:00:00 [facility] TDAP 2018-05-30 Completed University of 00:00:00 [facility] TDAP 2018-05-30 Completed University of 00:00:00 [facility] TDAP 2018-05-30 Completed University of 00:00:00 [facility] TDAP 2018-05-30 Completed University of 00:00:00 [facility] TDAP 2018-05-30 Completed University of 00:00:00 [facility] TDAP 2018-05-30 Completed University of 00:00:00 [facility] TDAP 2018-05-30 Completed University of 00:00:00 [facility] TDAP 2018-05-30 Completed University of 00:00:00 [facility] TDAP 2018-05-30 Completed University of 00:00:00 [facility] TDAP 2018-05-30 Completed University of 00:00:00 [facility] TDAP 2018-05-30 Completed University of 00:00:00 [facility] TDAP 2018-05-30 Completed University of 00:00:00 [facility] TDAP 2018-05-30 Completed University of 00:00:00 [facility] TDAP 2018-05-30 Completed University of 00:00:00 [facility] TDAP 2018-05-30 Completed University of 00:00:00 [facility] TDAP 2018-05-30 Completed University of 00:00:00 [facility] TDAP 2018-05-30 Completed University of 00:00:00 [facility] TDAP 2018-05-30 Completed University of 00:00:00 [facility] TDAP 2018-05-30 Completed [facility] of 00:00:00 [facility] TDAP 2018-05-30 Completed University of 00:00:00 [facility] Vital Signs Vital Name Observation Time Observation Value Comments Source Systolic blood 2023-02-18 20:13:00 138 mm[Hg] Univer [facility]ity of pressure [facility] Diastolic blood 2023-02-18 20:13:00 85 mm[Hg] Unive rsity of pressure [facility] Heart rate 2023-02-18 20:13:00 119 /min [facility] Respiratory rate 2023-02-18 20:13:00 18 /min Univ ers[facility] of [facility] Body height 2023-02-18 20:13:00 165.1 cm [facility] Body weight 2023-02-18 20:13:00 95.482 kg [facility] BMI 2023-02-18 20:13:00 35.03 kg/m2 [facility] Oxygen saturation in 2023-02-18 20:13:00 97 /min University of Arterial blood by [employer] [facility]elle [facility] Systolic blood 2023-02-01 16:10:00 130 mm[Hg] Univer [facility]ity of pressure [facility] Diastolic blood 2023-02-01 16:10:00 86 mm[Hg] Unive rsity of pressure [facility] Heart rate 2023-02-01 16:10:00 89 /min [facility] Body temperature 2023-02-01 16:10:00 36.56 [place] Univ ers[facility] Respiratory rate 2023-02-01 16:10:00 20 /min Univ ers[facility] of [facility] Body height 2023-02-01 16:10:00 165.1 cm [facility] Body weight 2023-02-01 16:10:00 98.748 kg [facility] BMI 2023-02-01 16:10:00 36.23 kg/m2 [facility] Oxygen saturation in 2023-02-01 16:10:00 96 /min [facility] of Arterial blood by [employer] [facility] Systolic blood 2023-01-12 21:21:00 129 mm[Hg] [facility] of pressure [facility] Diastolic blood 2023-01-12 21:21:00 79 mm[Hg] [facility] of pressure [facility] Heart rate 2023-01-12 21:21:00 125 /min [facility] Body temperature 2023-01-12 20:26:00 36.94 [place] [facility] Respiratory rate 2023-01-12 20:26:00 16 /min Univ ersity of [facility] Body height 2023-01-12 20:26:00 165.1 cm [facility] Body weight 2023-01-12 20:26:00 98.703 kg [facility] BMI 2023-01-12 20:26:00 36.21 kg/m2 [facility] Oxygen saturation in 2023-01-12 20:26:00 97 /min [facility] Systolic blood 2022-09-06 16:15:00 133 mm[Hg] [facility]iver [facility] of pressure [facility] Diastolic blood 2022-09-06 16:15:00 80 mm[Hg] [facility]ive rs[facility] of pressure [facility] Heart rate 2022-09-06 16:15:00 79 /min [facility] Body temperature 2022-09-06 16:15:00 36.89 [place] [facility] Respiratory rate 2022-09-06 16:15:00 17 /min Univ ers[facility] Body weight 2022-09-06 16:15:00 107.23 kg [facility] BMI 2022-09-06 16:15:00 39.34 kg/m2 [facility] Oxygen saturation in 2022-09-06 16:15:00 98 /min [facility] of Arterial blood by [facility]elle [facility] Systolic blood 2022-09-03 17:00:00 138 mm[Hg] [facility]iver [facility]ity of pressure [facility] Diastolic blood 2022-09-03 17:00:00 80 mm[Hg] [facility]ive rsity of pressure [facility] Heart rate 2022-09-03 16:59:00 89 /min [facility] Body temperature 2022-09-03 16:59:00 36.78 [place] [facility] Body height 2022-09-03 16:59:00 165.1 cm [facility] Body weight 2022-09-03 16:59:00 107.684 kg [facility] BMI 2022-09-03 16:59:00 39.51 kg/m2 [facility] Oxygen saturation in 2022-09-03 16:59:00 97 /min [facility] Systolic blood 2022-08-28 17:20:00 135 mm[Hg] [facility] of pressure [facility] Diastolic blood 2022-08-28 17:20:00 94 mm[Hg] Unive rsity of pressure [facility] Heart rate 2022-08-28 17:20:00 83 /min [facility] Body temperature 2022-08-28 17:20:00 36 [place] [facility] Respiratory rate 2022-08-28 17:20:00 18 /min [facility] Oxygen saturation in 2022-08-28 17:20:00 96 /min [facility] Arterial blood by [facility] christelle [facility] Body height 2022-08-27 07:30:00 165.1 cm [facility] Body weight 2022-08-27 07:30:00 108.364 kg [facility] BMI 2022-08-27 07:30:00 39.76 kg/m2 [facility] Systolic blood 2022-08-27 20:00:00 143 mm[Hg] [facility] of pressure [facility] Diastolic blood 2022-08-27 20:00:00 80 mm[Hg] [facility]ive rsity of pressure [facility] Respiratory rate 2022-08-27 20:00:00 23 /min [facility] Oxygen saturation in 2022-08-27 20:00:00 91 /min [facility] Heart rate 2022-08-27 18:24:00 100 /min [facility] Body temperature 2022-08-27 14:00:00 36.28 [place] [facility] Body height 2022-08-27 07:30:00 165.1 cm [facility] Body weight 2022-08-27 07:30:00 108.364 kg [facility] BMI 2022-08-27 07:30:00 39.76 kg/m2 [facility] Systolic blood 2022-08-26 22:15:00 182 mm[Hg] Univer [facility] of pressure [facility] Diastolic blood 2022-08-26 22:15:00 116 mm[Hg] Unive rsity of pressure [facility] Heart rate 2022-08-26 22:14:00 116 /min [facility] Body height 2022-08-26 22:14:00 165.1 cm [facility] Body weight 2022-08-26 22:14:00 109.907 kg [facility] BMI 2022-08-26 22:14:00 40.32 kg/m2 [facility] Oxygen saturation in 2022-08-26 22:14:00 98 /min [facility] Systolic blood 2022-07-27 15:31:00 146 mm[Hg] [facility]iver [facility] of pressure [facility] Diastolic blood 2022-07-27 15:31:00 88 mm[Hg] [facility]ive rsity of pressure [facility] Heart rate 2022-07-27 15:22:00 116 /min [facility] Body height 2022-07-27 15:22:00 165.1 cm [facility] Body weight 2022-07-27 15:22:00 109.181 kg [facility] BMI 2022-07-27 15:22:00 40.05 kg/m2 [facility] Oxygen saturation in 2022-07-27 15:22:00 96 /min [facility] Systolic blood 2022-06-22 16:03:00 133 mm[Hg] [facility] pressure [facility] Diastolic blood 2022-06-22 16:03:00 86 mm[Hg] Unive rsity of pressure [facility] Heart rate 2022-06-22 16:02:00 85 /min [facility] Body height 2022-06-22 16:02:00 165.1 cm [facility] Body weight 2022-06-22 16:02:00 105.28 kg [facility] BMI 2022-06-22 16:02:00 38.62 kg/m2 Universi ty [facility] Oxygen saturation in 2022-06-22 16:02:00 97 /min [facility] Arterial blood by [facility] Pulse oxim[facility] Branch Systolic blood 2021-11-05 20:27:00 153 mm[Hg] [facility]iver [facility]ity of pressure [facility] Diastolic blood 2021-11-05 20:27:00 81 mm[Hg] Unive rsity of pressure [facility] Heart rate 2021-11-05 20:26:00 102 /min [facility] Body height 2021-11-05 20:26:00 165.1 cm [facility] Body weight 2021-11-05 20:26:00 109.272 kg Universi ty [facility] [place] BMI 2021-11-05 20:26:00 40.09 kg/m2 [facility] ty [facility] [place] Oxygen saturation in 2021-11-05 20:26:00 98 /min [facility] blood by [facility] P[facility] Branch Procedures Procedure Date / Time Performing Clinician Source Performed EXTERNAL PROVIDER RECORDS 2023-02-22 05:01:00 Doctor Vizcarra, [facility] MEDICAL RELEASE/CLEARANCE 2023-02-01 05:01:00 Doctor Zackery, [facility] FORMS [facility] PATIENT FINANCIAL 2023-01-12 20:15:01 Doctor Vizcarra [facility] POLICY [facility] DISABILITY/FMLA 2022-11-01 06:01:00 Doctor Zackery [facility] AUTHORIZATION TO RELEASE 2022-09-23 06:01:00 Doctor Vizcarra [facility] PHI TO [facility] DISABILITY/FMLA 2022-09-07 06:01:00 Doctor Zackery [facility] ACTIVATED PARTIAL THRMPLAS 2022-08-28 15:10:00 Yruy Pagan [facility] ACTIVATED PARTIAL THRMPLAS 2022-08-28 15:10:00 Yury Pagan [facility] POCT GLUCOSE (AUTOMATED) 2022-08-28 13:52:00 Dinora Hamm [facility] POCT GLUCOSE (AUTOMATED) 2022-08-28 13:52:00 Dinora Hamm [facility] MAGNESIUM 2022-08-28 06:45:00 [facility], [facility] BASIC METABOLIC PANEL (NA, 2022-08-28 06:45:00 Jacques, [facility] [facility] [place] [facility], CL, CO2, GLUCOSE, BUN, Medica l Branch CREATININE, CA) ACTIVATED PARTIAL THRMPLAS 2022-08-28 06:45:00 Yury Pagan [facility] MAGNESIUM 2022-08-28 06:45:00 Jacques, [facility] BASIC METABOLIC PANEL (NA, 2022-08-28 06:45:00 Jacques, [place] [facility] K, CL, CO2, GLUCOSE, BUN, Medica l Branch CREATININE, CA) ACTIVATED PARTIAL THRMPLAS 2022-08-28 06:45:00 Yury Pagan [facility] POCT GLUCOSE (AUTOMATED) 2022-08-28 02:33:00 Dinora Hamm [facility] POCT GLUCOSE (AUTOMATED) 2022-08-28 02:33:00 Dinora Hamm [facility] POCT GLUCOSE (AUTOMATED) 2022-08-27 22:04:00 Dinora Hamm [facility] POCT GLUCOSE (AUTOMATED) 2022-08-27 22:04:00 Dinora Hamm [facility] TROPONIN I 2022-08-27 20:33:00 [facility] ACTIVATED PARTIAL THRMPLAS 2022-08-27 20:33:00 Yury Pagan [facility] TROPONIN I 2022-08-27 20:33:00 [facility] ACTIVATED PARTIAL THRMPLAS 2022-08-27 20:33:00 Yury Pagan [facility] POCT GLUCOSE (AUTOMATED) 2022-08-27 20:15:00 [facility] POCT GLUCOSE (AUTOMATED) 2022-08-27 20:15:00 Dinora aHmm [facility] CARDIAC CATHETERIZATION 2022-08-27 19:03:44 [facility]22-08-27 19:03[facility] CARDIAC CATHETERIZATION 2022-08-27 19:03:44 Dinora Hamm [facility] CARDIAC CATHETERIZATION 2022-08-27 19:03:44 [place] URINE DRUG (IMMUNOASSAY) - 2022-08-27 17:14:00 Payton Hanna niversnick [facility] COMPREHENSIVE DRUG SCREEN [facility] [place] URINE DRUG (IMMUNOASSAY) - 2022-08-27 17:14:00 [facility]EN [facility] POCT GLUCOSE (AUTOMATED) 2022-08-27 16:02:00 [facility] POCT GLUCOSE (AUTOMATED) 2022-08-27 16:02:[address] [facility] TRANSTHORACIC ECHO (TTE) 2022-08-27 15:15:00 Payton Hanna [facility] [place] COMPLETE W/ CONTRAST [facility] TRANSTHORACIC ECHO (TTE) 2022-08-27 15:15:00 Payton Hanna [facility] [place] COMPLETE W/ CONTRAST [facility] TROPONIN I 2022-08-27 12:15:00 Jacques [facility] N-TERMINAL PRO-BNP 2022-08-27 12:15:00 [facility] TROPONIN I 2022-08-27 12:15:00 Jacques, [facility] N-TERMINAL PRO-BNP 2022-08-27 12:15:00 [facility] PART[facility] THRMPLAS 2022-08-27 10:20:00 [facility] THRMPLAS 2022-08-27 10:20:00 Yury Pagan [facility] TROPONIN I 2022-08-27 07:22:00 [facility] TROPONIN I 2022-08-27 07:22:00 [facility] PROTHROMBIN TIME / INR 2022-08-27 03:47:00 Yury Pagan [facility] ACTIVATED PARTIAL THRMPLAS 2022-08-27 03:47:00 Yury Pagan [facility] PROTHROMBIN TIME / INR 2022-08-27 03:47:00 Yury Pagan [facility] ACTIVATED PARTIAL THRMPLAS 2022-08-27 03:47:00 Yury Pagan [facility] HB ECG ROUTINE & RHYTHM 2022-08-27 03:40:[address] [facility] HB ECG ROUTINE & RHYTHM 2022-08-27 03:40:[address] [facility] TROPONIN I 2022-08-27 02:37:00 Yury Pagan [facility] TROPONIN I 2022-08-27 02:37:00 Yury Pagan [facility] XR CHEST 1 2022-08-26 23:39:25 Yury Pagan [facility] XR CHEST 1 2022-08-26 23:39:25 Yury Pagan [facility] CK (CREATINE KINASE) + MB 2022-08-26 23:23:[address]OPON[facility] 2022-08-26 23:23:00 Yury Pagan [facility] COMP. METABOLIC PANEL 2022-08-26 23:23:00 Yury Pagan [facility] ([id number] CBC WITH DIFF 2022-08-26 23:23:00 Yury Pagan [facility] GLYCOSYLATED HEMOGLOBIN 2022-08-26 23:23:00 [facility] CK (CREATINE KINASE) + MB 2022-08-26 23:23:00 [address] [facility] TROPONIN I 2022-08-26 23:23:00 Yury Pagan [facility] COMP. METABOLIC PANEL 2022-08-26 23:23:00 Yury Pagan [facility] ([id number]) [facility] CBC WITH DIFF 2022-08-26 23:23:00 Yury Pagan [facility] GLYCOSYLATED HEMOGLOBIN 2022-08-26 23:23:00 Jacques [facility] HB ECG ROUTINE & RHYTHM 2022-08-26 23:13:[address] [facility] HB ECG ROUTINE & RHYTHM 2022-08-26 23:13:[address] [facility] HOSPITAL ADMISSION 2022-08-26 06:01:00 Doctor Unassigned, [facility] DISABILITY/FMLA 2022-07-29 05:01:00 Doctor Unassigned, [facility] Name [facility] SARS-COV-2 COVID-19 2022-06-22 16:14:29 Bernard Gallardo [facility] KEN-SUCROSE VACCINE [address] [place] [address] YRS+, BIVALENT 0.3ML, IM, (PFIZER ANDERSON TOP BOOSTER) Encounters Start End Encounter Admission Attending Care Care Encounter Source Date/Time Date/Time Type Type Clinicians Facility Department ID 2021-07-27 Emergency [facility] [id number] Univers 18:54:40 [facility] 2021-07-25 Emergency [facility] [id number] Univers 18:28:39 [facility] 2023-02-28 2023-02-28 Outpatient EDD KENNY [facility] [id number] Univers 15:40:00 15:40:00 EDD KIMBROUGH [facility] 2023-02-25 2023-02-25 Outpatient Barbara LANDA [facility] [id number] Univers 14:30:00 14:30:00 JAY [facility] 2023-02-222023-02-22 Orders Doctor CEZAR 1.2.840.114 [id number] Univers 00:00:00 00:00:00 Only Unassigned, B[place] 350.1.13.10 [place] [facility] 4.2.7.2.686 Erick as [phone] [address] 2023-02-18 2023-02-18 Outpatient R GABRIEL WEI [facility] [id number] Univers 15:20:00 16:03:48 GABRIEL WEI [facility] 2023-02-18 2023-02-18 Office Sondra [facility] 1.2.840.114 [id number] Univers 15:20:00 16:03:[address] [facility] 350.1.13.10 ity of [place] 4.2.7.2.686 Erick as LARRY?BLEA [phone] [address] MEDICAL OFFICE [facility] 2023-02-15 2023-02-15 Outpatient R EDD KIMBROUGH [facility] [id number] Univers 15:40:00 15:40:00 EDD KIMBROUGH christian [facility] 2023-02-04 2023-02-04 Outpatient R ARNULFO [facility] [id number] Univers 15:40:00 15:40:00 LAWRENCE romero o f [facility] 2023-02-04 2023-02-04 Patient Doctor [facility] 1.2.840.114 [id number] Univers 00:00:00 00:00:00 Secure Msg Unassigned, [facility] 350.1.13.10 it[place] of [place] 4.2.7.2.686 Erick as LARRY?BLEA [phone] [facility] [address] [place] MEDICAL OFFICE [facility] 2023-02-03 2023-02-03 Telephone [facility] 1.2.840.114 [id number] Univers 00:00:00 00:00:00 , Christina HEALTH 350.1.13.10 ity of M [place] 4.2.7.2.686 Erick as LARRY?BLEA [phone] [facility] [address] [place] MEDICAL OFFICE [facility] 2023-02-03 2023-02-03 Case [facility] 1.2.840.114 [id number] Univers 00:00:00 00:00:00 Management , Christina CHARLES 350.1.13.10 ity of [place] 4.2.7.2.686 Erick as LARRY?BLEA [phone] [facility] [address] [place] MEDICAL OFFICE [facility] 2023-02-01 2023-02-01 Inventory Planner Lab, [facility] 1.2.840.1 14 [id number] Univers 11:45:00 12:00:00 Visit Christina Gallo HEALTH 350.1 .13.10 ity of [place] 4.2.7.2.686 Erick as LARRY?BLEA [id number] [facility] [address] [facility] OFFICE [facility] 2023-02-01 2023-02-01 Office [facility] 1.2.840.114 [id number] [facility] 11:20:00 11:40:00 Visit , Christina CHARLES 350.1.13.10 ity of [place] 4.2.7.2.686 Erick as LARRY?BLEA [phone] [address] OFFICE [facility] 2023-02-01 2023-02-01 Outpatient R [facility] [id number] Univers 11:20:00 11:20:00 , CHRISTINA it y of [facility] 2023-02-01 2023-02-01 Orders Doctor CEZAR 1.2.840.114 [id number] Univers 00:00:00 00:00:00 Only Unassigned, BULL 350.1.13.10 [place] [facility] 4.2.7.2.686 Erick as [phone] [address] 2023-02-01 2023-02-01 Patient [facility] 1.2.840.114 [id number] Univers 00:00:00 00:00:00 Secure Msg Christina 350.1.13.10 ity of [place] 4.2.7.2.686 Erick as LARRY?BLEA [phone] [address] MEDICAL OFFICE [facility] 2023-01-28 2023-01-28 Outpatient R [facility] [id number] Univers 16:15:00 16:15:00 , CHRISTINA it y of [facility] 2023-01-28 2023-01-28 Outpatient R GABRIEL EWI [facility] [id number] Univers 08:40:00 08:40:00 GABRIEL WEI francischristian [facility] 2023-01-21 2023-01-21 Telephone Sherwin [facility] ..[id number] Univers 00:00:00 00:00:00 Mario HEALTH 350.1.13.10 it y of [place] 4.2.7.2.686 Erick as LARRY?BLEA [phone] Id grzegorzmarilyn RAVI [address] [facility] OFFICE [facility] 2023-01-14 2023-01-14 Letter Ronen, [facility] 1..840.114 [id number] Univers 00:00:00 00:00:00 (Out) General HEALTH 350.1.13.10 it y of Cardiology [place] 4.2.7.2.686 T [facility] [phone] [facility] [address] [place] OFFICE BUILDING 2023-01-12 2023-01-12 Inventory Planner Lab, Ang - Db [facility] 1..840.1 14 [id number] Univers 16:15:00 16:30:00 Visit Mario Courtney 350.1.13.10 ity of [place] 4.2.7.2.686 Erick as LARRY?BLEA [phone] Id grzegorzmarilyn SCANLON [address] [facility] OFFICE [facility] 2023-01-12 2023-01-12 Outpatient R SHERWIN [facility] [id number] Univers 15:30:00 16:13:30 MARIO christian [facility] 2023-01-12 2023-01-12 Office [facility] ..840.114 [id number] Univers 15:30:00 16:13:30 Visit Mario CHARLES 350.1.13.10 it y of [place] 4.2.7.2.686 Erick as LARRY?BLEA [id number] Id grzegorz[address] OFFICE BUILDING 2023-01-12 2023-01-12 Orders Doctor ROBB 1..840.114 [id number] Univers 00:00:00 00:00:00 Only Unassigned, B[place] 350.1.13.10 [place] HOSPITAL 4.2.7.2.686 Erick as [phone] [address] 2023-01-12 2023-01-12 Manuelito [facility] 1.2.202.453 [id number] Univers 00:00:00 00:00:00 Qiangangeline [place] 350.1.13.10 ity of [place].2.7.2.[place] [phone] Id dical NAL [address] [facility] 2022-12-20 2022-12-20 Out[facility] [id number] Univers 09:30:00 09:30:00 BERNARD [facility] 2022-12-06 2022-12-06 [facility] [id number] Univers 11:00:00 11:00:00 LWARENCE romero o f [facility] 2022-12-03 2022-12-03 Outpatient R JU, [facility] [id number] Univers 14:00:00 14:00:00 VIDHI [facility] 2022-11-18 2022-11-18 Outpatient [facility] [id number] Univers 09:45:00 09:45:00 GT christian [facility] 2022-11-01 2022-11-01 Orders Doctor CEZAR 1.2.840.114 [id number] Univers 00:00:00 00:00:00 Only Unassigned, B[place] 350.1.13.10 [place] HOSPITAL 4.2.7.2.686 Erick as [phone] [address] 2022-10-20 2022-10-20 Refle [facility] 1.2.840.114 [id number] Univers 00:00:00 00:00:00 Radha A HEALTH 350.1.13.10 i [facility] 4.2.7.2.686 Erick as LARRY?BLEA [id number] Id dical KNEY [address] [facility] 2022-09-23 2022-09-23 Orders Doctor CEZAR 1.2.840.114 [id number] Univers 00:00:00 00:00:00 Only Unassigned, [place] 350.1.13.10 [place] HOSPITAL 4.2.7.2.686 Erick as [phone] [address] 2022-09-15 2022-09-15 Outpatient R [facility] [id number] Univers 15:00:00 15:00:00 LAWRENCE romero o f [facility] 2022-09-07 2022-09-07 Letter Clinic, [facility] 1.2.840.114 [id number] Univers 00:00:00 00:00:00 (Out) [facility] HEALTH 350.1.13.10 [place] of [place] [phone] [place] 671174 [facility] 2022-09-07 2022-09-07 Telephone [facility] 1.2.397.447 [id number] Univers 00:00:00 00:00:00 Lawrence DELANEY 350.1.13.10 ity of [place].2.[place] [phone] Id dical NAL 9 [facility] 2022-09-07 2022-09-07 Orders Doctor CEZAR 1.2.840.114 [id number] Univers 00:00:00 00:00:00 Only Unassigned, [place] 350.1.13.10 [place] HOSPITAL 4.2.7.2.686 Erick as [phone] [address] 2022-09-06 2022-09-06 Outpatient R [facility], [facility] [id number] Univers 10:20:00 10:34:28 LAWRENCE romero o f [facility] 2022-09-06 2022-09-06 Office [facility] 1.2.840.114 [id number] Univers 10:20:00 10:34:28 Visit Lawrence DELANEY 350.1.13.10 ity of [place].2.7.2.[place] [phone] Id dical NAL 059 [facility] 2022-09-03 2022-09-03 Outpatient R JENNIFER [facility] [id number] Univers 11:00:00 11:32:00 RADHA romero [facility] 2022-09-03 2022-09-03 Office [facility] 1.2.840.114 [id number] Univers 11:00:00 11:32:00 Visit Radha Herrera HEALTH 350.1.13.10 i ty of [place] 4.2.7.2.686 Erick as LARRY?BLEA [id number] [facility] [address] [facility] OFFICE [facility] 2022-08-26 2022-08-28 Outpatient X DINORA HAMM [facility] 1 [id number] Univers 17:14:00 14:49:00 DINORA HAMM [facility] 2022-08-26 2022-08-28 Emergency Yury Pagan 1.2.840.1 14 [id number] Univers 17:14:00 14:49:00 Dinora Hamm 350.1.13.10 ity [facility] 4.2.7.2.686 Erick as [phone] [facility] [address] [place] 2022-08-27 2022-08-27 Surgery IBETH Burden 1.2.840.114 [id number] Univers 13:00:00 14:00:00 Jasen [place] 350.1.13.10 it y of [facility] 4.2.7.2.686 Erick as [phone] [facility] [address] [place] 2022-08-26 2022-08-26 Outpatient R PAULINA [facility] [id number] Univers 16:00:00 16:59:11 BERNARD christian [facility] 2022-08-26 2022-08-26 Office [facility] 1.2.840.114 [id number] Univers 16:00:00 16:59:11 Visit Bernard HEALTH 350.1.13.10 it y of [place] 4.2.7.2.686 Erick as LARRY?BLEA [id number] [address] OFFICE [facility] 2022-08-13 2022-08-13 Letha Paul[facility] 1.2.601.194 [id number] Univers 00:00:00 00:00:00 Bernard HEALTH 350.1.13.10 it y of [place] 4.2.7.2.686 Erick as LARRY?BLEA [id number] [address] MEDICAL OFFICE [facility] 2022-08-09 2022-08-09 Letha [facility] 1.2.201.219 [id number] Univers 00:00:00 00:00:00 Bernard HEALTH 350.1.13.10 it y of [place] 4.2.7.2.686 Erick as LARRY?BLEA [id number] [address] 2022-08-04 2022-08-04 Letha [facility] 1.2.053.442 [id number] Univers 00:00:00 00:00:00 Bernard HEALTH 350.1.13.10 it y of [place] 4.2.7.2.686 Erick as LARRY?BLEA [id number] [address] OFFICE [facility] 2022-07-29 2022-07-29 Orders Doctor CEZAR 1.2.840.114 [id number] Univers 00:00:00 00:00:00 Only Unassigned, BULL 350.1.13.10 ity of [place] [facility] 4.2.7.2.686 Erick as [phone] [address] 2022-07-29 2022-07-29 Letha Paul[facility] 1.2.778.607 [id number] Univers 00:00:00 00:00:00 Bernard HEALTH 350.1.13.10 it y of [place] 4.2.7.2.686 Erick as LARRY?BLEA [id number] [address] 2022-07-27 2022-07-27 Outpatient R PAULINA [facility] [id number] Univers 10:00:00 12:13:56 BERNARD ity of [facility] 2022-07-27 2022-07-27 Office [facility] 1.2.840.114 [id number] Univers 10:00:00 12:13:56 Visit Bernard HEALTH 350.1.13.10 it y of [place] 4.2.7.2.686 Erick as LARRY?BLEA [phone] Id patti RAVI[address] OFFICE [facility] 2022-07-12 2022-07-12 Telephone [facility] 1.2.671.191 [id number] Univers 00:00:00 00:00:00 Bernard HEALTH 350.1.13.10 it y of [place] 4.2.7.2.686 Erick as LRARY?BLEA [phone] [address] OFFICE [facility] 2022-06-23 2022-06-23 Telephone [facility] 1.2.159.034 [id number] [facility] 00:00:00 00:00:00 Bernard HEALTH 350.1.13.10 it y of [place] 4.2.7.2.686 Erick as LARRY?BLEA [id number] [address] OFFICE [facility] 2022-06-22 2022-06-22 Outpatient R PAULINA [facility] [id number] Univers 11:45:00 12:34:08 BERNARD ity of [facility] 2022-06-22 2022-06-22 Inventory Planner Lab, Ang - Db [facility] 1.2.840.1 14 [id number] Univers 11:45:00 12:00:00 Visit Bernard Gallardo 350.1.13.10 ity of [place] 4.2.7.2.686 Erick as LARRY?BLEA [phone] [address] OFFICE [facility] 2022-06-22 2022-06-22 Office [facility] 1.2.840.114 [id number] Univers 11:00:00 11:53:34 Visit Bernard HEALTH 350.1.13.10 it y of [place] 4.2.7.2.686 Erick as LARRY?BLEA [id number] [address] OFFICE [facility] 2022-05-19 2022-05-19 Refill [facility] 1.2.840.114 [id number] Univers 00:00:00 00:00:00 Bernard HEALTH 350.1.13.10 it y of [place] 4.2.7.2.686 Erick as LARRY?BLEA [id number] Id patti [address] OFFICE [facility] 2022-02-18 2022-02-18 Telephone [facility] 1.2.907.891 [id number] Univers 00:00:00 00:00:00 Bernard HEALTH 350.1.13.10 it y of [place] 4.2.7.2.686 Erick as LARRY?BLEA [id number] Id patti [address] OFFICE [facility] 2022-02-15 2022-02-15 Telephone [facility] 1.2.931.406 [id number] Univers 00:00:00 00:00:00 Bernard HEALTH 350.1.13.10 it y of [place] 4.2.7.2.686 Erick as LARRY?BLEA [phone] [address] OFFICE [facility] 2022-01-19 2022-01-19 Refill [facility] 1.2.840.114 [id number] Univers 00:00:00 00:00:00 Radha A HEALTH 350.1.13.10 i ty of [place] 4.2.7.2.686 Erick as LARRY?BLEA [id number] [address] OFFICE [facility] 2021-12-15 2021-12-15 Outpatient R RENZO [facility] [id number] Univers 15:30:00 15:30:00 STACEY ity [facility] 2021-12-15 2021-12-15 Outpatient R RENZO [facility] [id number] Univers 15:30:00 15:30:00 STACEY ity [facility] 2021-12-15 2021-12-15 Outpatient R RENZO [facility] [id number] Univers 15:30:00 15:30:00 STACEY ity [facility] 2021-12-11 2021-12-11 Outpatient R RENZO [facility] [id number] Univers 16:00:00 16:00:00 STACEY ity [facility] 2021-12-112021-12-11 Outpatient R RENZO [facility] [id number] Univers 16:00:00 16:00:00 STACEY romero [facility] 2021-12-04 2021-12-04 Telephone Renzo [facility] 1.2.840.114 [id number] Univers 00:00:00 00:00:00 Stacey SMITHPEC 350.1.13.10 ity of [place] [id number] [address] DIABETES CLINIC 2021-11-05 2021-11-05 Outpatient R PAULINA [facility] [id number] Univers 14:00:00 15:22:45 BERNARD romero [facility] 2021-11-05 2021-11-05 Office [facility] 1.2.840.114 [id number] Univers 14:00:00 15:22:45 Visit [facility] 350.1.13.10 it y of [place] 4.2.7.2.686 Erick as LARRY?BLEA [id number] [address] MEDICAL OFFICE BUILDING 2021-11-05 2021-11-05 Orders Doctor CEZAR 1.2.840.114 [id number] Univers 00:00:00 00:00:00 Only Unassigned, BULL 350.1.13.10 ity of [place] [facility] 4.2.7.2.686 Erick as [id number] [address] 2021-10-09 2021-10-09 Refill Renoz [facility] 1.2.955.755 [id number] Univers 00:00:00 00:00:00 Stacey ELLIOTT 350.1.13.10 ity of [place].2.686 [place] [id number] [address] [facility]ETES CLINIC 2021-10-07 2021-10-07 Outpatient R ARNULFO [facility] [id number] Univers 15:40:00 15:40:00 LAWRENCE blancoy o f [facility] 2021-10-07 2021-10-07 Refle Rodriguez [facility] 1.2.840.114 [id number] Univers 00:00:00 00:00:00 Radha Javier HEALTH 350.1.13.10 i ty of [place] 4.2.7.2.686 Erick as PROFESSIO [phone] Id patti STONER [address] [place] [address] OFFICE BUILDING ONE 2021-09-19 2021-09-19 Refill Jennifer [facility] 1.2.840.114 [id number] Univers 00:00:00 00:00:00 Radha Javier HEALTH 350.1.13.10 i ty of [place] 4.2.7.2.686 Erick as LARRY?BLEA [id number] Id patti SCANLON [address] [place] [address] OFFICE BUILDING 2021-09-16 2021-09-16 Telephone Renzo [facility] 1.2.840.114 [id number] Univers 00:00:00 00:00:00 Stacey ELLIOTT 350.1.13.10 it[place] of [place].2.686 [place] C[place] [phone] [address] [facility]ES [facility]INIC 2021-09-14 2021-09-14 Inventory Planner Vtc-Lab [facility] 1.2.840.114 [id number] Univers 12:30:00 12:45:00 Visit Stacey Muller 350.1.13.1 0 [place] [phone] [facility] [address] [facility] 2021-09-14 2021-09-14 Office Renzo [facility] 1.2.806.847 [id number] Univers 11:30:00 12:10:15 Visit Stacey ELLIOTT 350.1.13.10 [place] [id number] [address] [facility] 2021-09-14 2021-09-14 Outpatient R RENZO [facility] [id number] Univers 11:30:00 12:10:15 STACEY romero [facility] 2021-09-14 2021-09-14 Outpatient R RENZO [facility] [id number] Univers 11:30:00 11:30:00 STACEY romero [facility] 2021-09-07 2021-09-07 [facility]phone [facility] 1.2.840.114 [id number] Univers 00:00:00 00:00:00 [place] MULTISPEC 350.1.13.10 [place] [id number] [address] [facility] 2021-08-09 2021-08-09 [facility] 1.2.840.114 [id number] Univers 00:00:00 00:00:00 Radha [facility] 350.1.13.10 i ty of [place] 4.2.7.2.686 Erick as LARRY?BLEA [phone] [address] OFFICE [facility] 2021-07-21 2021-07-21 Outpatient R MAGNOLIA [facility] [id number] Univers 09:00:00 09:00:00 [facility] 2021-07[facility]11 2021-07-11 [facility] 1.2.438.771 [id number] Univers 00:00:00 00:00:00 [facility] 350.1.13.10 [place] [id number] [address] [facility] 2021-07-01 2021-07-01 Telephone Ibeth Manriquez [id number] [id number] Univers 00:00:00 00:00:00 Leonardo Bull 350.1.13.10 it y of Hospital 4.2.7.2.686 Erick as [id number] [place] [address] [place] 2021-06-28 2021-06-28 [facility] 1.2.840.114 [id number] Univers 00:00:00 00:00:00 Radha [facility] 350.1.13.10 i ty of [place] 4.2.7.2.686 Erick as Larry?Blea [phone] [address] Medical Office [facility] [facility] 2021-06-19 2021-06-19 Outpatient [facility] [id number] Univers 00:00:00 00:00:00 STACEY ity of [facility] 2021-06-15 2021-06-15 Inventory Planner [facility] 1.2.840.114 [id number] Univers 09:05:52 09:20:52 Visit Stacey MullerPEC 350.1.13.1 0 it[place] of [place]2.[place].686 [place] [phone] [address] DIABETES CLINIC 2021-06-15 2021-06-15 Inventory Planner [facility] 1.2.840.114 [id number] Univers 09:05:52 09:20:52 Visit Stacey MullerPEC 350.1.13.1 0 ity of IALTY 4.2.7.2.686 [facility] [phone] [address] DIABETES CLINIC 2021-06-15 2021-06-15 Office [facility] 1.2.237.056 [id number] Univers 07:56:22 09:06:08 Visit Stacey ELLIOTT 350.1.13.10 ity of IALTY 4.2.7.2.686 [facility] [place] [phone] [address] DIABETES CLINIC 2021-06-15 2021-06-15 Office [facility] 1.2.814.710 [id number] Univers 07:56:22 09:06:08 Visit Stacey SMITHMARGIE 350.1.13.10 ity of IALTY 4.2.7.2.686 [facility] [phone] [address] DIABETES CLINIC 2021-06-15 2021-06-15 Outpatient [facility] [id number] Univers 08:30:00 08:30:00 STACEY ity [facility] 2021-06-15 2021-06-15 Orders Doctor ROBB 1.2.840.114 [id number] Univers 00:00:00 00:00:00 Only Unassigned, BULL 350.1.13.10 it[place] of [place] [facility] 4.2.7.2.686 Erick as [phone] [address] 2021-06-15 2021-06-15 Orders Doctor CEZAR 1.2.840.114 [id number] Univers 00:00:00 00:00:00 Only Unassigned, BULL 350.1.13.10 ity of [place] [facility] 4.2.7.2.686 Erick as [phone] [facility] 009 [place] 2021-06-10 2021-06-10 Telephone Ibeth Manriquez 1.2.359.425 [id number] [id number] Univers 00:00:00 00:00:00 Leonardo Bull 350.1.13.10 it y of Hospital 4.2.7.2.686 Erick as [phone] [facility] 039 [place] 2021-06-10 2021-06-10 Telephone Ibeth Manriquez 1.2.966.739 [id number] Univers 00:00:00 00:00:00 Leonardo [place] 350.1.13.10 it y of Hospital 4.2.7.2.686 Erick as [phone] [address] 2021-06-05 2021-06-05 Office Jennifer [facility] 1.2.840.114 [id number] Univers 13:48:18 14:55:22 Visit Radha Javier Health 350.1.13.10 i ty of [place] 4.2.7.2.686 Erick as Larry?Blea [phone] Id patti scanlon [address] [place] [address] Office Building 2021-06-05 2021-06-05 Outpatient R JENNIFER [facility] [id number] Univers 14:00:00 14:00:00 RADHA romero [facility] 2021-06-05 2021-06-05 Outpatient R JENNIFER [facility] [id number] Univers 09:30:00 09:30:00 RADHA ity [facility] 2021-06-05 2021-06-05 Jhonny Purcell [facility] 1.2.840.114 [id number] Univers 00:00:00 00:00:00 Gt Health 350.1.13.10 it y of [place] 4.2.7.2.686 Erick as Professio [phone] Id patti [address] Office Building One 2021-06-05 2021-06-05 Jhonny Purcell [facility] 1.2.840.114 [id number] Univers 00:00:00 00:00:00 [facility] 350.1.13.10 it y of [place] 4.2.7.2.686 Erick as Professio [phone] [address] Office [facility] One 2021-06-03 2021-06-03 Telephone [facility] 1.2.840.114 [id number] Univers 00:00:00 00:00:00 [facility] 350.1.13.10 [place] [phone] [address] DIABETES CLINIC 2021-06-03 2021-06-03 Telephone [facility] 1.2.840.114 [id number] Univers 00:00:00 00:00:00 [facility] 350.1.13.10 ity of [place] 4.2.7.2.686 [place] [phone] [address] DIABETES CLINIC 2021-05-29 2021-05-29 Outpatient Barbara MERIDA [facility] [id number] Univers 09:00:00 09:00:00 SHAMIR [facility] 2021-05-25 2021-05-26 Emergency [facility] 1.2.355.499 [id number] Univers 06:08:00 00:16:00 Fermarino [place] 350.1.13.10 i ty of [place] 4.2.7.2.686 [facility] [phone] [address] 2021-05-25 2021-05-26 Emergency [facility] 1.2.333.235 [id number] 0590 Univers 06:08:00 00:16:00 Fermarino [place] 350.1.13.10 i ty of [place] 4.2.7.2.686 [facility] [phone] [address] 2021-05-25 2021-05-25 Outpatient Barbara [facility] [id number] Univers 16:00:00 16:00:00 STACEY christian [facility] 2021-05-25 2021-05-25 Outpatient R RENZO [facility] [id number] Univers 14:30:00 14:30:00 STACEY [facility] 2021-05-20 2021-05-20 Office Corrie [facility] 1.2.978.048 [id number] Univers 15:51:17 16:04:18 Visit [facility] T [place] 350.1.13.10 ity of [place] 4.2.7.2.686 [place] Profess[place] [phone] [address] 2021-05-20 2021-05-20 Office [facility] 1.2.511.499 [id number] Univers 15:51:17 16:04:18 Visit [facility] T [place] 350.1.13.10 ity of [place] 4.2.7.2.686 [place] Profess[place] [phone] [address] 2021-05-20 2021-05-20 Outpatient R RODRIGO MAYA [facility] [id number] Univers 16:00:00 16:00:00 RODRIGO MAYA [facility] 2021-05-19 2021-05-19 Office [facility] 1.2.840.114 [id number] Univers 13:53:10 14:13:10 [facility] 350.1.13.10 i ty of [place] 4.2.7.2.686 [place] Profess[place] [phone] [address] 2021-05-19 2021-05-19 Office [facility] 1.2.840.114 [id number] Univers 13:53:10 14:13:10 Visit Leonardo [place] 350.1.13.10 i ty of [place] 4.2.7.2.686 [place] Profess[place] [phone] [address] 2021-05-19 2021-05-19 Outpatient [facility] [id number] Univers 14:00:00 14:00:00 LEONARDO [facility] 2021-05-08 2021-05-08 Outpatient R RODRIGO [facility] [id number] Univers 19:30:00 19:30:00 RODRIGO MAYA itchristian [facility] 2021-05-08 2021-05-08 Inventory Planner 1, [facility] Sleep Lab Bed [place] 1. 2.840.114 [id number] Univers 15:24:09 17:54:09 Visit Rodrigo Maya Linda Delaney 350.1.13. 10 ity of [place] 4.2.7.2.686 [place] [facility] [phone] [facility] [address] 2021-05-08 2021-05-08 Inventory Planner Pob, [facility] Lab Main [facility] 1.2.8 40.114 [id number] Univers 16:00:52 16:15:52 Visit Rodrigo Maya Rhett 350.1.13. 10 ity of [place] 4.2.7.2.686 [place] Profess[place] [phone] Id dic[address] 2021-05-08 2021-05-08 Outpatient R RODRIGO MAYA [facility] [id number] Univers 16:00:00 16:00:00 RODRIGO MAYA ity [facility] 2021-05-07 2021-05-07 Outpatient [facility] [id number] Univers 11:00:00 11:00:00 STACEY ity [facility] 2021-05-07 2021-05-07 Telephone CEZAR Ivory 1.2.428.306 [id number] Univers 00:00:00 00:00:00 Kellie MCF[place] 350.1.13.10 it y of [facility] 4.2.7.2.686 Erick as [phone] [facility] [address] 2021-05-06 2021-05-06 Laboratory Only, [facility] Test [facility] 1.2.840. 114 [id number] Univers 15:32:58 15:47:58 Only Facundo Galvez 350.1.13.10 ity of [place] 4.2.7.2.686 [place] Serafina [phone] [facility] 353 [place] 2021-05-06 2021-05-06 Outpatient R [facility] [id number] Univers 15:45:00 15:45:00 ity of [facility] 2021-05-06 2021-05-06 Orders Doctor CEZAR 1.2.840.114 [id number] Univers 00:00:00 00:00:00 Only Unassigned, BULL 350.1.13.10 [place] of [place] [facility] 4.2.7.2.686 Erick as [phone] [address] 2021 2021 Patient [facility] 1.2.762.680 [id number] Univers 00:00:00 00:00:00 Secure Msg Stacey MULTISPEC 350.1.13.10 ity of [place] 4.2.7.2.686 [place] [phone] [address] DIABETES CLINIC 2021-04-30 2021-04-30 Patient Renzo [facility] 1.2.851.804 [id number] Univers 00:00:00 00:00:00 Secure Msg [place] [facility] 350.1.13.10 ity of [place] 4.2.7.2.686 [place] [id number] [facility] AND [address] DIABETES CLINIC 2021-04-30 2021-04-30 Telephone Renzo [facility] 1.2.840.114 [id number] Univers 00:00:00 00:00:00 Stacey MULTISPEC 350.1.13.10 ity of [place] 4.2.7.2.686 [place] [phone] [address] DIABETES CLINIC 2021-04-23 2021-04-23 Inventory Planner Lab, Adc Fam Pob I [facility] 1.2. 840.114 [id number] Univers 08:00:26 08:20:26 Visit Bernard Gallardo [facility] 350.1.13.10 ity of [place] 4.2.7.2.686 Erick as Professio [phone] Id dic[address] Office [facility] One 2021-04-23 2021-04-23 Outpatient R [facility] [id number] Univers 08:00:00 08:00:00 ity of [facility] 2021-04-222021-04-22 Office Corrie, [facility] 1.2.895.626 [id number] Univers 13:31:24 13:51:24 Visit Rodrigo Delaney 350.1.13.10 ity of [place] 4.2.7.2.686 [place] Profess[place] [phone] Id patti stoner 085 [facility] 2021-04-22 2021-04-22 Outpatient R RODRIGO MAYA [facility] [id number] Univers 13:40:00 13:40:00 RODRIGO MAYA itchristian [facility] 2021-04-22 2021-04-22 Office [facility] 1.2.840.114 [id number] Univers 11:24:42 12:02:05 Visit Radha Herrera Health 350.1.13.10 i ty of [place] 4.2.7.2.686 Erick as Professio [phone] [facility] 044 [facility] 2021-04-22 2021-04-22 Orders Doctor CEZAR 1.2.840.114 [id number] Univers 00:00:00 00:00:00 Only Unassigned, BULL 350.1.13.10 ity of [place] [facility] 4.2.7.2.686 Erick as [phone] [address] 2021-04-13 2021-04-13 Telephone [facility] 1.2.410.873 [id number] Univers 00:00:00 00:00:00 [facility] 350.1.13.10 it y of [place] 4.2.7.2.686 Erick as Professio [phone] Id dical nal 044 [facility] 2021-04-08 2021-04-08 Outpatient R RODRIGO MAYA [facility] [id number] Univers 19:30:00 19:30:00 RODRIGO MAYA [facility] 2021-04-03 2021-04-03 Outpatient R RODRIGO MAYA [facility] [id number] Univers 19:30:00 19:30:00 RODRIGO MAYA [facility] 2021-04-03 2021-04-03 Inventory Planner 1, [facility] Sleep Lab Bed [facility] 1. 2.840.114 [id number] Univers 13:35:47 16:05:47 Visit Rodrigo Maya 350.1.13. 10 ity of [place] 4.2.7.2.686 [place] [phone] [facility] [address] [place] 2021-04-02 2021-04-02 Orders Doctor CEZAR 1.2.840.114 [id number] Univers 00:00:00 00:00:00 Only Unassigned, BULL 350.1.13.10 ity of [place] [facility] 4.2.7.2.686 Erick as [phone] [facility] 009 [place] 2021-04-01 2021-04-01 Office [facility] 1.2.840.114 [id number] Univers 09:53:54 10:23:16 Visit Lawrence Delaney 350.1.13.10 ity of [place] 4.2.7.2.686 [place] [phone] Id dical nal [address] [facility] 2021-04-01 2021-04-01 Outpatient [facility] [id number] Univers 10:00:00 10:00:00 LAWRENCE romero o f [facility] 2021-04-01 2021-04-01 Patient [facility] 1.2.840.114 [id number] Univers 00:00:00 00:00:00 Secure Msg Lawrence Delaney 350.1.13.10 ity of [place] 4.2.7.2.686 [place] [phone] Id dical nal [address] Building 2021-03-31 2021-03-31 Refill Jennifer [facility] 1.2.840.114 [id number] Univers 00:00:00 00:00:00 Radha A Health 350.1.13.10 i ty of [place] 4.2.7.2.686 Erick as Professio [phone] Id dical nal [address] Office Building One 2021-03-28 2021-03-28 Refill Renzo [facility] 1.2.181.229 [id number] Univers 00:00:00 00:00:00 [facility] 350.1.13.10 ity of IALTY 4.2.7.2.686 [facility] [place] [phone] [address] DIABETES CLINIC 2021-03-25 2021-03-25 Outpatient [facility] [id number] Univers 09:30:00 09:30:00 [facility] 2021-03-23 2021-03-23 Outpatient [facility] [id number] Univers 09:30:00 09:30:00 [facility] 2021-03-18 2021-03-18 Telephone [facility] 1.2.840.114 [id number] Univers 00:00:00 00:00:00 [facility] 350.1.13.10 ity of IALTY 4.2.7.2.686 [facility] s [place] [phone] [address] DIABETES CLINIC 2021-03-17 2021-03-17 Outpatient R DECLAN [facility] [id number] Univers 11:40:00 11:40:00 LEONARDO ity [facility] 2021-03-13 2021-03-13 Refle [facility] 1.2.840.114 [id number] Univers 00:00:00 00:00:00 [facility] 350.1.13.10 it y of [place] 4.2.7.2.686 Erick as Professio [phone] Id dical nal 044 [facility] One 2021-03-05 2021-03-05 Refle [facility] 1.2.840.114 [id number] Univers 00:00:00 00:00:00 [facility] 350.1.13.10 it y of [place] 4.2.7.2.686 Erick as Professio [phone] Id dical nal 044 [facility] One 2021-02-26 2021-02-26 Office [facility] 1.2.689.704 [id number] Univers 14:47:32 15:32:32 Visit [facility] Health 350.1.13.10 it y of [place] 4.2.7.2.686 [place] [phone] [facility] [address] Office Building 2021-02-26 2021-02-26 Outpatient R LILA [facility] [id number] Univers 15:00:00 15:00:00 ODALIS ity [facility] 2021-02-13 2021-02-13 Hospital Rosaura Quintanilla Barbara HU 1.2.840. 114 [id number] Univers 08:06:38 23:59:00 Encounter Odalis Sharp HEALTH 350.1.13.1 0 ity of CLINICS 4.2.7.2.686 [place] [phone] [facility] [address] 2021-02-13 2021-02-13 Outpatient R LILA [facility] [id number] Univers 00:00:00 00:00:00 [facility] 2021-02-10 2021-02-10 Orders Doctor CEZAR 1.2.840.114 [id number] Univers 00:00:00 00:00:00 Only Unassigned, BULL 350.1.13.10 ity of [place] [facility] 4.2.7.2.686 Erick as [phone] [facility] [address] 2021-02-10 2021-02-10 Jhonny Purcell [facility] 1.2.840.114 [id number] Univers 00:00:00 00:00:00 [facility] 350.1.13.10 it y of [place] 4.2.7.2.686 Erick as Professio [phone] Id dical nal [address] Office Building One 2021-01-29 2021-01-29 Jhonny Gallardo [facility] 1.2.840.114 [id number] Univers 00:00:00 00:00:00 [facility] 350.1.13.10 it y of [place] 4.2.7.2.686 Erick as Professio [phone] Id dical nal 044 [place] Office Building One 2021-01-23 2021-01-23 Jhonny [facility] 1.2.840.114 [id number] Univers 00:00:00 00:00:00 [facility] 350.1.13.10 it y of [place] 4.2.7.2.686 Erick as Professio [phone] [facility] 044 [place] Office Building One 2021-01-22 2021-01-22 Telephone Dwight, [facility] 1.2.840.114 [id number] Univers 00:00:00 00:00:00 Rosaura R Y HEALTH 350.1.13.10 i ty of CLINICS 4.2.7.2.686 [place] [phone] [facility] [address] 2021-01-21 2021-01-21 Letter Neurology UNIVERSIT 1.2.840.114 [id number] Univers 00:00:00 00:00:00 (Out) Y HEALTH 350.1.13.10 i ty of CLINICS 4.2.7.2.686 [place] [phone] [facility] [address] 2021-01-21 2021-01-21 Telephone Dwight [facility] 1.2.840.114 [id number] Univers 00:00:00 00:00:00 Rosaura R Y HEALTH 350.1.13.10 i ty of CLINICS 4.2.7.2.686 [place] [phone] [facility] [address] 2021-01-20 2021-01-20 Telephone RIAZ Muller 1.2.840.114 [id number] Univers 00:00:00 00:00:00 Stacey MULTISPEC 350.1.13.10 ity of IAL[place] 4.2.7.2.686 [place] [phone] [facility] AND [place] [address] DIABETES CLINIC 2021-01-17 2021-01-17 Refill Doctor [facility] 1.2.840.114 [id number] Univers 00:00:00 00:00:00 Unassigned, Health 350.1.13.10 ity of [place] 4.2.7.2.686 Erick as Professio [phone] [address] Office Building One 2021-01-17 2021-01-17 Refill RIAZ Gallardo 1.2.840.114 [id number] Univers 00:00:00 00:00:00 [facility] 350.1.13.10 it y of [place] 4.2.7.2.686 Erick as Professio [phone] [facility] 044 [place] Office Building One 2021-01-16 2021-01-16 Telephone Renzo [facility] 1.2.840.114 [id number] Univers 00:00:00 00:00:00 Stacey MULTISPEC 350.1.13.10 ity of IAL[place] 4.2.7.2.686 [place] CENTER [phone] [facility] AND [place] [address] [place] DIABETES CLINIC 2021-01-15 2021-01-15 Inventory Planner Lin, Adc Lab Main [facility] 1.2.8 40.114 [id number] Univers 15:42:28 15:57:28 Visit Stacey Muller 350.1.13.10 ity of [place] 4.2.7.2.686 [place] Profess[place] [phone] [facility] 353 [facility] 2021-01-15 2021-01-15 Outpatient R RENZO [facility] [id number] Univers 15:30:00 15:30:00 STACEY ity of [facility] 2021-01-15 2021-01-15 Orders Doctor CEZAR 1.2.840.114 [id number] Univers 00:00:00 00:00:00 Only Unassigned, BULL 350.1.13.10 ity of [place] [facility] 4.2.7.2.686 Erick as [phone] [place] [address] [address] 2021-01-14 2021-01-14 Telephone Binh [facility] 1.2.574.948 [id number] [id number] Univers 00:00:00 00:00:00 [facility] 350.1.13.10 it y of [place] 4.2.7.2.686 Erick as Professio [phone] [facility] 044 [place] Office Building One 2021-01-08 2021-01-08 Inventory Planner Vtc-Lab [facility] 1.2.840.114 [id number] Univers 16:43:08 16:58:08 Visit Stacey Muller 350.1.13.1 0 ity of IAL[place] 4.2.7.2.686 [place] CENTER [phone] [facility] [address] [place] DIABETES CLINIC 2021-01-08 2021-01-08 Office [facility] 1.2.647.041 [id number] [id number] Univers 15:09:40 15:55:32 Visit Stacey SMITHPEC 350.1.13.10 ity of IAL[place] 4.2.7.2.686 [place] [phone] [address] DIABETES CLINIC 2021-01-08 2021-01-08 Outpatient R RENZO [facility] [id number] Univers 15:30:00 15:30:00 STACEY ity [facility] 2020-12-31 2020-12-31 Telephone [facility] 1.2.840.114 [id number] Univers 00:00:00 00:00:00 Staceyshahana SMITHMARGIE 350.1.13.10 ity of IALTY 4.2.7.2.686 [place] [phone] [address] DIABETES CLINIC 2020-12-30 2020-12-30 Outpatient Barbara ARREDONDO [facility] [id number] Univers 16:00:00 16:00:00 LAWRENCE romero o f [facility] 2020-12-30 2020-12-30 Telephone [facility] 1.2.840.114 [id number] Univers 00:00:00 00:00:00 Staceyshahana SMITHPEC 350.1.13.10 ity of IALTY 4.2.7.2.686 [facility] [place] [phone] [address] DIABETES CLINIC 2020-12-29 2020-12-29 Office [facility] 1.2.840.114 [id number] Univers 15:29:39 16:24:44 Visit Lawrence Delaney 350.1.13.10 ity of [place] 4.2.7.2.686 [place] Profess[place] [phone] [place] 815479 [facility] 2020-12-29 2020-12-29 Outpatient Barbara ARREDONDO [facility] [id number] Univers 15:40:00 15:40:00 LAWRENCE romero o f [facility] 2020-12-22 2020-12-22 Outpatient R RENZO [facility] [id number] Univers 16:00:00 16:00:00 STACEY ity [facility] 2020-12-20 2020-12-20 Orders Doctor CEZAR 1.2.840.114 [id number] Univers 00:00:00 00:00:00 Only Unassigned, BULL 350.1.13.10 ity of [place] [facility] 4.2.7.2.686 Erick as [phone] [facility] [address] 2020-12-15 2020-12-15 Telephone [facility] 1.2.840.114 [id number] Univers 00:00:00 00:00:00 Satcey MULTISPEC 350.1.13.10 ity of IAL[place] 4.2.7.2.686 [place] [phone] [address] DIABETES CLINIC 2020-12-09 2020-12-09 Patient Jake [facility] 1.2.840.114 [id number] Univers 00:00:00 00:00:00 Outreach Trevor GRANT 350.1.13.10 i ty of [facility] 4.2.7.2.686 [place] [phone] Id dical [address] [place] 2020-12-09 2020-12-09 Telephone Renzo [facility] 1.2.840.114 [id number] Univers 00:00:00 00:00:00 Stacey ELLIOTT 350.1.13.10 ity of IAL[place] 4.2.7.2.686 [place] [phone] [address] DIABETES CLINIC 2020-11-24 2020-11-24 Inventory Planner 1, Adc Lab [facility] 1.2.840.114 [id number] Univers 15:29:04 15:44:04 Visit Stacey Muller 350.1.13.10 ity of [place] 4.2.7.2.686 [place] Ser[place] [phone] [facility] [address] 2020-11-24 2020-11-24 Outpatient R RENZO [facility] [id number] Univers 08:20:00 08:20:00 STACEY romero [facility] 2020-11-20 2020-11-20 Inventory Planner Vtc-Lab [facility] 1.2.840.114 [id number] Univers 16:04:06 16:19:06 Visit Stcaey Muller 350.1.13.1 0 ity of [id number] [phone] [facility] [address] [facility] 2020-11-20 2020-11-20 [facility] [id number] Univers 14:58:18 16:05:05 Visit Stacey LEXI [id number] [id number] [phone] [facility] [address] [facility] 2020-11-20 2020-11-20 Outpatient R RENZO [facility] [id number] Univers 15:30:00 15:30:00 STACEY [facility] 2020-11-14 2020-11-14 Telephone Renzo [facility] [id number] Univers 00:00:00 00:00:00 Staceyshahana SMITHMARGIE [id number] [id number] [phone] [address] [facility] 2020-10-31 2020-10-31 [facility] [id number] Univers 15:40:58 16:55:28 Visit Radha Charles [id number] i ty of [place] [id number] Erick as Professio [phone] [address] Office [facility] 2020-10-31 2020-10-31 Outpatient R JENNIFER [facility] [id number] Univers 16:00:00 16:00:00 RADHA romero [facility] 2020-10-30 2020-10-30 Inventory Planner Lab, Adc Fam Pob I [facility] [id number]. [id number] Univers 16:01:12 16:09:12 Visit Bernard Gallardo [id number] ity of [place] [id number] Erick as Professio [phone] [address] Office [facility] 2020-10-30 2020-10-30 Outpatient R PAULINA, [facility] [id number] Univers 16:00:00 16:00:00 BERNARD [facility] 2020-10-30 2020-10-30 Outpatient R KIERA, [facility] [id number] Univers 15:00:00 15:00:00 ABHISHEK [facility] 2020-10-30 2020-10-30 Outpatient R SYEDA, [facility] [facility] [id number] Univers 14:00:00 14:00:00 JAY [facility] 2020-10-29 2020-10-29 Inventory Planner Lab, [facility] I [facility] 1.2. 840.114 [id number] Univers 15:30:52 15:50:52 Visit Radha Rodriguez 350.1.13.10 itchristian lara [place] 4.2.7.2.686 Erick as Professio [phone] [address] Office [facility] One 2020-10-29 2020-10-29 Outpatient Barbara RODRIGUEZ [facility] [id number] Univers 15:40:00 15:40:00 RADHA [facility] 2020-10-28 2020-10-28 Office [facility] 1.2.315.874 [id number] Univers 15:42:36 16:12:36 Visit Odalis [facility] 350.1.13.10 it y of [place] 4.2.7.2.686 [place] ak[place]ha [place] [phone] [place] [address] Branch Office Building 2020-10-28 2020-10-28 Outpatient Barbara SHARP [facility] [id number] Univers 15:45:00 15:45:00 ODALIS [facility] 2020-10-24 2020-10-24 Outpatient R GABRIEL WEI [facility] [id number] Univers 08:00:00 08:00:00 GABRIEL WEI [facility] 2020-10-23 2020-10-23 Outpatient Barbara RODRIGUEZ [facility] [id number] Univers 08:00:00 08:00:00 RADHA ity of [facility] 2020-10-22 2020-10-22 Telephone Nathaniel [facility] 1.2.840.114 [id number] Univers 00:00:00 00:00:00 [facility] 350.1.13.10 it y of [place] 4.2.7.2.686 Erick as Professio [phone] Id dical nal [address] Office Building One 2020-10-20 2020-10-20 Transition CastellonJoel valeoskar 1.2.840.114 [id number] Univers 00:00:00 00:00:00 of Care Melisa Morales 350.1.13.10 ity of [place]2.[place].2.[place] [phone] [facility] [address] 2020-10-16 2020-10-17 [facility] Fer Macedo 1.2.840.1 14 [id number] Univers 07:17:00 15:21:00 Encounter Abhishek Qureshi 350.1.13.10 ity of [facility] 4.2.7.2.686 Erick as [phone] [facility] [address] 2020-10-17 2020-10-17 Outpatient GABRIEL HOLLINGSWORTH [facility] [id number] Univers 15:00:00 15:00:[address] [facility] 2020-10-17 2020-10-17 Refle Nguyen [facility] 1.2.840.114 [id number] Univers 00:00:00 00:00:00 Tereso Health 350.1.13.10 it [place] [phone] [facility] [address] Office Building 2020-10-16 2020-10-16 Telephone Jennifer [facility] 1.2.246.794 [id number] Univers 00:00:00 00:00:00 Radha A Health 350.1.13.10 i ty of [place] 4.2.7.2.686 Erick as Professio [phone] Id dical nal 044 [facility] One 2020-10-14 2020-10-14 Telephone [facility] 1.2.689.134 [id number] Univers 00:00:00 00:00:00 Gt [facility] 350.1.13.10 it y of [place] 4.2.7.2.686 Erick as Professio [phone] Id dical nal 044 [facility] One 2020-10-11 2020-10-11 Refill [facility] 1.2.840.114 [id number] Univers 00:00:00 00:00:00 [facility]t [facility] 350.1.13.10 it y of [place] 4.2.7.2.686 Erick as Professio [phone] [facility] nal [address] [place] [address] One 2020-10-02 2020-10-02 Office [facility] 1.2.840.114 [id number] Univers 16:02:36 17:59:52 Visit [facility] 350.1.13.10 it y of [place] 4.2.7.2.686 Erick as Professio [phone] Id dical nal [address] [place] [address] One 2020-10-02 2020-10-02 [facility] [id number] Univers 16:30:00 16:30:00 BERNARD romero of [facility] 2020-10-01 2020-10-01 Orders Doctor CEZAR 1.2.840.114 [id number] Univers 00:00:00 00:00:00 Only Unassigned, BULL 350.1.13.10 ity of [place] [facility] 4.2.7.2.686 Erick as [phone] [address] 2020-10-01 2020-10-01 Telephone [facility] 1.2.266.075 [id number] Univers 00:00:00 00:00:00 Radha A Health 350.1.13.10 i ty of [place] 4.2.7.2.686 Erick as Professio [phone] Id dic[address] Office [facility] One 2020-09-25 2020-09-25 Outpatient Barbara GALLARDO [facility] [id number] Univers 09:00:00 09:00:00 BERNARD ity of [facility] 2020-09-25 2020-09-25 Telephone [facility] 1.2.098.864 [id number] Univers 00:00:00 00:00:00 Radha A Health 350.1.13.10 i ty of [place] 4.2.7.2.686 Erick as Professio [phone] Id dical nal 044 [facility] 2020-09-19 2020-09-19 Refle [facility] 1.2.840.114 [id number] Univers 00:00:00 00:00:00 Gt Health 350.1.13.10 it y of [place] 4.2.7.2.686 Erick as Professio [phone] Id dical nal 044 [facility] 2020-09-19 2020-09-19 Refle [facility] 1.2.840.114 [id number] Univers 00:00:00 00:00:00 Gt Health 350.1.13.10 it y of [place] 4.2.7.2.686 Erick as Professio [phone] Id dical nal 044 [facility] 2020-09-16 2020-09-16 Telephone [facility] 1.2.840.114 [id number] Univers 00:00:00 00:00:00 Vivienne Delaney 350.1.13.10 i ty of [place] 4.2.7.2.[place] Profess[place] [phone] Id dicct nal 188 [facility] 2020-09-11 2020-09-11 Emergency X [facility] ERT [id number] Univers 15:06:00 17:24:00 SHAHNAZ blancochristian of [facility] 2020-09-11 2020-09-11 [facility] 1.2.548.709 [id number] Univers 15:06:00 17:24:00 Shahnaz Delaney 350.1.13.10 i ty of [place] 4.2.7.2.686 [place] Serafina [phone] [facility] 084 [place] 2020-09-11 2020-09-11 Office [facility] 1.2.840.114 [id number] Univers 13:40:50 14:10:50 Visit [facility] 350.1.13.10 it y of [place] 4.2.7.2.686 Erick as Professio [phone] [address] Office Building One 2020-09-11 2020-09-11 Outpatient Barbara GALLARDO [facility] [id number] Univers 14:00:00 14:00:00 BERNARD romero [facility] 2020-09-11 2020-09-11 Orders Doctor CEZAR 1.2.840.114 [id number] Univers 00:00:00 00:00:00 Only Unassigned, BULL 350.1.13.10 ity of [place] [facility] 4.2.7.2.686 Erick as [phone] [address] 2020-08-25 2020-08-25 Refle [facility] 1.2.840.114 [id number] Univers 00:00:00 00:00:00 Gt Health 350.1.13.10 it y of [place] 4.2.7.2.686 Erick as Professio [phone] [address] Office Building One 2020-08-22 2020-08-22 Refle [facility] 1.2.840.114 [id number] Univers 00:00:00 00:00:00 Gt Health 350.1.13.10 it y of [place] 4.2.7.2.686 Erick as Professio [phone] [address] Office Building One 2020-03-20 2020-03-20 Outpatient R JUDE [facility] ACO [id number] Univers 00:00:00 00:00:00 DEDRICK nick of [facility] 2020-02-09 2020-02-09 Refle [facility] 1.2.840.114 [id number] Univers 00:00:00 00:00:00 Gt Health 350.1.13.10 it y of [place] 4.2.7.2.686 Erick as Professio [phone] [address] Office Building One 2019-12-18 2019-12-18 Refle Lewis [facility] 1.2.840.114 [id number] Univers 00:00:00 00:00:00 Verena Health 350.1.13.10 i ty of [place] 4.2.7.2.686 Erick as Professio [phone] Id dical nal 044 [place] Office Building One 2019-12-14 2019-12-14 Refill Binh PRMALACHI 1.2.840.114 [id number] Univers 00:00:00 00:00:00 Gt Health 350.1.13.10 it y of [place] 4.2.7.2.686 Erick as Professio [phone] Id dical nal 044 [place] Office Building One 2019-04-23 2019-04-26 Office Binh PRMALACHI 1.2.840.114 [id number] Univers 12:26:50 13:15:04 Visit [facility] 350.1.13.10 it y of [place] 4.2.7.2.686 Erick as Professio [phone] Id dical nal 044 [facility] Building One 2019-04-24 2019-04-25 Inventory Planner Lab, Adc Fam Pob I [facility] 1.2. 840.114 [id number] Univers 09:10:55 10:11:54 Visit Radha Rodriguez [facility] 350.1.13.10 ity of [place] 4.2.7.2.686 Erick as Professio [phone] Id dical nal 044 [place] Office Building One 2019-04-23 2019-04-23 Orders Doctor CEZAR 1.2.840.114 [id number] Univers 00:00:00 00:00:00 Only Unassigned, BULL 350.1.13.10 ity of [place] [facility] 4.2.7.2.686 Erick as [phone] [address] Results Test Description Test Time Test [...] normal/abnormal. Lab Interpretation (test code Abnormal = 42337-1) [facility]28 15:39:40 Test Item Value Reference Range Interpretation Comments APTT Patient (test code See_Comment H [Au tomated message] = 3173-2) The system Harir generated this result transmitted ref erence range: 26 - 36 Seconds. The reference range was not used to int erpret this result as normal/abnormal . Lab Interpretation (test Abnormal code = 40578-6) [facility] GLUCOSE (AUTOMATED)2022-08-28 13:53:49 Test Item Value Reference Range Interpretation Comments POCT GLU (test code = 0681831514) 187 mg/dL 70-110 H Lab Interpretation (test code = Abnormal 13449-3) [facility] GLUCOSE (AUTOMATED)2022-08-28 13:53:49 Test Item Value Reference Range Interpretation Comments POCT GLU (test code = 1651300364) 187 mg/dL 70-110 H Lab Interpretation (test code = Abnormal 37398-3) [facility] GLUCOSE (AUTOMATED)2022-08-28 02:59:23 Test Item Value Reference Range Interpretation Comments POCT GLU (test code = 2020129401) 175 mg/dL 70-110 H Lab Interpretation (test code = Abnormal 46398-6) [facility] GLUCOSE (AUTOMATED)2022-08-28 02:59:23 Test Item Value Reference Range Interpretation Comments POCT GLU (test code = 1555485039) 175 mg/dL 70-110 H Lab Interpretation (test code = Abnormal 48789-0) [facility] GLUCOSE (AUTOMATED)2022-08-27 22:09:50 Test Item Value Reference Range Interpretation Comments POCT GLU (test code = 9664222567) 262 mg/dL 70-110 H Lab Interpretation (test code = Abnormal 60376-3) [facility] GLUCOSE (AUTOMATED)2022-08-27 22:09:50 Test Item Value Reference Range Interpretation Comments POCT GLU (test code = 5713633496) 262 mg/dL 70-110 H Lab Interpretation (test code = Abnormal 56424-7) [facility] [id number] 21:06:07 Test Item Value Reference Interpretation Comments Range TROPONIN I (test 0.097 ng/mL See_Comment H [Automated code = 0555250963) message] The system which generated this result [...] biotin. Lab Interpretation Abnormal (test code = 44769-1) [facility] [id number] 21:06:07 Test Item Value Reference Interpretation Comments Range TROPONIN I (test 0.097 ng/mL See_Comment H [Automated code = 6033677653) message] The system which generated this result [...] biotin. Lab Interpretation Abnormal (test code = 89064-0) [facility]2022-08-27 20:52:49 Test Item Value Reference Range Interpretation Comments APTT Patient (test code = See_Comment [ Automated message] 3173-2) The system Harir generated this result transmitted ref erence range: 26 - 36 Seconds. The re ference range was not u sed to interpret this result as normal/abnor mal. Lab Interpretation (test Normal code = 51377-6) [facility]2022-08-27 20:52:49 Test Item Value Reference Range Interpretation Comments APTT Patient (test code = See_Comment [ Automated message] 3173-2) The system Harir generated this result transmitted ref erence range: 26 - 36 Seconds. The re ference range was not u sed to interpret this result as normal/abnor mal. Lab Interpretation (test Normal code = 26380-1) [facility]E)2022-08-27 20:34:30 Test Item Value Reference Range Interpretation Comments Height (test code = in 9519505489) Weight (test code = lbs 4132929822) Systolic BP (test code = mmHg 8088831273) Diastolic BP (test code mmHg = 2519559870) Heart Rate (test code = bpm 5987880036) BSA (test code = 2.13 m2 5453923913) Ao root diam (test code 2.70 cm = 9305174327) Aortic root (test code = 2.7 cm 8889589806) Ao root annulus (test 2.7 cm code = 4252354519) LA size (test code = 3.4 cm 4185574486) LVOT diameter (test code 2.09 cm = 7111250152) LVOT area (test code = 3.40 cm2 3217972054) LVPWD (test code = 1.15 cm 0031034528) PW (test code = 1.15 cm 0.6-1.3 2845325855) LVIDD (test code = 4.50 cm 9600513978) Left Ventricular End 93.4 mL Diastolic Volume by Teichholz Method (test code = 6204015) IVS (test code = 1.13 cm 1625191968) Interventricular Septum 1.13 cm Diastolic Thickness by 2D (test code = 9578444) EF(Teich) (test code = 56.50 % 7575345413) LVIDS (test code = 3.20 cm 5043497196) Left Ventricular End 40.6 mL Systolic Volume by Teichholz Method (test code = 0662484) FS (test code = 29 % 8008781181) EF - 2D (test code = 56.50 % 04097471) E wave decelartion time 0.19 s (test code = 3433592763) MV Peak E Jemma (test code 68.4 cm/s = 0392679364) MV Peak A Jemma (test code 94.6 cm/s = 5333288900) E/A ratio (test code = ratio 9114091294) MV Prop V (test code = 52.20 cm/s 6317447350) LAV(MOD-sp4) (test code 64.70 mL = 9252026247) LVOT stroke volume (test 62.30 cm3 code = 6776748908) LVOT peak jemma (test code 109.4 cm/s = 6693729980) LVOT mn grad (test code mmHg = 0521546992) AV LVOT peak gradient mmHg (test code = 4660105611) LVOT peak VTI (test code 18.2 cm = 5272218316) LV V1 mean (test code = 75.90 cm/s 4903932580) Tapse (test code = 1.83 cm 1634148531) LA Volume Index (BP) 35.1 mL/m2 (test code = 3288016614) LA volume (BP) (test 74.7 mL code = 9002179864) LAV(MOD-sp2) (test code 68.00 mL = 3124320195) A4C EF (test code = 48.80 % 1919335001) EF(sp4-el) (test code = 49.60 % 0492988586) SV(MOD-sp4) (test code = 44.60 mL 7037749558) SV(sp4-el) (test code = 48.00 mL 4375033498) LV Diastolic Volume (BP) 85.2 mL (test code = 7338000629) A2C EF (test code = 55.50 % 5601104034) EF(MOD-bp) (test code = 46.40 % 6978854320) EF(sp2-el) (test code = 54.80 % 6008072940) LV Systolic Volume (BP) 45.7 mL (test code = 3264352279) SV(MOD-bp) (test code = 39.50 mL 7306079349) SV(MOD-sp2) (test code = 40.50 mL 8744997833) EF (test code = 2504573539) Left Ventricular Stroke 39.5 mL Volume by 2-D Biplane-MOD (test code = 0924994) LV Diastolic Volume 40.0 mL/m2 Index (BP) (test code = 5434558968) LV Systolic Volume Index 21.5 mL/m2 (BP) (test code = 8780534205) Radiology Study observation (narrative) (test code = 06392-2) TRINI (test code = TRINI) ?Left?Ventricle: Left [...] mL of Lumason ultrasound enhancing agent used. [facility]2022-08-27 20:34:30 Test Item Value Reference Range Interpretation Comments Height (test code = in 9718672989) Weight (test code = lbs 1891722895) Systolic BP (test code = mmHg 2315682254) Diastolic BP (test code mmHg = 9012179787) Heart Rate (test code = bpm 1813367733) BSA (test code = 2.13 m2 4861101831) Ao root diam (test code 2.70 cm = 1118640893) Aortic root (test code = 2.7 cm 7272303490) Ao root annulus (test 2.7 cm code = 1449707687) LA size (test code = 3.4 cm 2905573882) LVOT diameter (test code 2.09 cm = 8792293840) LVOT area (test code = 3.40 cm2 7429758993) LVPWD (test code = 1.15 cm 0253626107) PW (test code = 1.15 cm 0.6-1.5 4732765363) LVIDD (test code = 4.50 cm 3556031938) Left Ventricular End 93.4 mL Diastolic Volume by Teichholz Method (test code = 0824992) IVS (test code = 1.13 cm 4237564980) Interventricular Septum 1.13 cm Diastolic Thickness by 2D (test code = 3751369) EF(Teich) (test code = 56.50 % 4243400399) LVIDS (test code = 3.20 cm 1172293985) Left Ventricular End 40.6 mL Systolic Volume by Teichholz Method (test code = 9164614) FS (test code = 29 % 0868831619) EF - 2D (test code = 56.50 % 91001439) E wave decelartion time 0.19 s (test code = 2818801366) MV Peak E Jemma (test code 68.4 cm/s = 5166569095) MV Peak A Jemma (test code 94.6 cm/s = 9718346279) E/A ratio (test code = ratio 4215046041) MV Prop V (test code = 52.20 cm/s 1382620128) LAV(MOD-sp4) (test code 64.70 mL = 6688573454) LVOT stroke volume (test 62.30 cm3 code = 9307525512) LVOT peak jemma (test code 109.4 cm/s = 1030866540) LVOT mn grad (test code mmHg = 1393910927) AV LVOT peak gradient mmHg (test code = 6263510620) LVOT peak VTI (test code 18.2 cm = 6036568835) LV V1 mean (test code = 75.90 cm/s 5436673785) Tapse (test code = 1.83 cm 0988161693) LA Volume Index (BP) 35.1 mL/m2 (test code = 9850113009) LA volume (BP) (test 74.7 mL code = 2778389758) LAV(MOD-sp2) (test code 68.00 mL = 3963802614) A4C EF (test code = 48.80 % 7106731871) EF(sp4-el) (test code = 49.60 % 9239626213) SV(MOD-sp4) (test code = 44.60 mL 8674682672) SV(sp4-el) (test code = 48.00 mL 8946824170) LV Diastolic Volume (BP) 85.2 mL (test code = 7242326069) A2C EF (test code = 55.50 % 5964777758) EF(MOD-bp) (test code = 46.40 % 5087084679) EF(sp2-el) (test code = 54.80 % 0864406339) LV Systolic Volume (BP) 45.7 mL (test code = 7286975226) SV(MOD-bp) (test code = 39.50 mL 6363528214) SV(MOD-sp2) (test code = 40.50 mL 8572125845) EF (test code = 4359494061) Left Ventricular Stroke 39.5 mL Volume by 2-D Biplane-MOD (test code = 9234766) LV Diastolic Volume 40.0 mL/m2 Index (BP) (test code = 6870642658) LV Systolic Volume Index 21.5 mL/m2 (BP) (test code = 0062186641) Radiology Study observation (narrative) (test code = 25407-3) TRINI (test code = TRINI) ?Left?Ventricle: Left [...] mL of Lumason ultrasound enhancing agent used. [facility] GLUCOSE (AUTOMATED)2022-08-27 20:16:48 Test Item Value Reference Range Interpretation Comments POCT GLU (test code = 254 mg/dL 70-110 H Notifi ed Provider [id number]) Lab Interpretation (test Abnormal code = 37231-4) [facility] GLUCOSE (AUTOMATED)2022-08-27 20:16:48 Test Item Value Reference Range Interpretation Comments POCT GLU (test code = 254 mg/dL 70-110 H Notifi ed Provider 7129990619) Lab Interpretation (test Abnormal code = 02754-4) [facility] GLUCOSE (AUTOMATED)2022-08-27 16:11:35 Test Item Value Reference Range Interpretation Comments POCT GLU (test code = 0107813281) 229 mg/dL 70-110 H Lab Interpretation (test code = Abnormal 86535-7) [facility] GLUCOSE (AUTOMATED)2022-08-27 16:11:35 Test Item Value Reference Range Interpretation Comments POCT GLU (test code = 2251142532) 229 mg/dL 70-110 H Lab Interpretation (test code = Abnormal 11953-0) [place] [id number] 04:14:14 Test Item Value Reference Range Interpretation Comments APTT Patient (test See_Comment [Automat ed code = 3173-2) message] The system which generated this result transmitted reference range : 23 - 38 Seconds . The reference range was not used to interpr et this result as normal/abnormal . TRINI (test code = TRINI) The [facility] patient population mean normal value for aPTT is 30 seconds. Lab Interpretation Normal (test code = 44192-9) [facility] 04:14:14 Test Item Value Reference Range Interpretation Comments APTT Patient (test See_Comment [Automat ed code = 3173-2) message] The system which generated this result transmitted reference range : 23 - 38 Seconds . The reference range was not used to interpr et this result as normal/abnormal . TRINI (test code = TRINI) The [facility] patient population mean normal value for aPTT is 30 seconds. Lab Interpretation Normal (test code = 65813-0) [facility] / [id number] 04:12:13 Test Item Value Reference Range Interpretation Comments PROTIME PATIENT (test See_Comment [Auto mated message] code = 5964-2) The system [employer] generated this result transmitted ref erence range: 12.0 - 1 4.7 Seconds. The re ference range was not u sed to interpret this result as normal/abnor mal. INR (test code = 6301-6) Nor mal INR <1.1; Warfarin Therap eutic range 2.0 to 3. 0 or 2.5 to 3.5, dep ending upon the indica tions. Lab Interpretation (test Normal code = 09286-1) [facility] / [id number] 04:12:13 Test Item Value Reference Range Interpretation Comments PROTIME PATIENT (test See_Comment [Auto mated message] code = 5964-2) The system [employer] generated this result transmitted ref erence range: 12.0 - 1 4.7 Seconds. The re ference range was not u sed to interpret this result as normal/abnor mal. INR (test code = 6301-6) Nor mal INR <1.1; Warfarin Therap eutic range 2.0 to 3. 0 or 2.5 to 3.5, dep ending upon the indica tions. Lab Interpretation (test Normal code = 99710-2) [facility]
[2023-03-30] MEDS ORDERED: NA CHLORIDE 0.9% 1,000 ML ONE ×2 (11:37→11:39)
[2023-03-30 11:45] LABS: Absolute Lymphocytes (CBC) 1.2 K/uL (0.7-4.9); Hematocrit 43.8 % (39.6-49.0); Lymphocytes % 8.5 % (15.3-44.8); MCV 85.4 fL (80-100); MPV 8.1 fL (7.6-11.3); RBC Red Blood Cell Count 5.13 M/uL (4.33-5.43)
--- NOTE | 2023-03-30 11:51 | RAD REPORT ---
EXAM DESCRIPTION: CT - Head Brain Wo Cont - 03/30/2023 11:16 am CLINICAL HISTORY: head injury COMPARISON: Head angio dated 01/01/2023; Head Brain Wo Cont dated 01/01/2023; MRA Head Wo Cont dated 12/25; Brain Wo Cont dated 01/03/2023; Brain Wo Cont dated 01/28/2023 TECHNIQUE: Noncontrast head CT images were obtained without IV contrast. Multiplanar reformats were generated and reviewed. All CT scans are performed using dose optimization technique as appropriate and may include automated exposure control or mA/KV adjustment according to patient size. FINDINGS: No intracranial hemorrhage, mass, or edema. Midline structures are unremarkable. Normal ventricular caliber for age. Bilateral frontal regions of encephalomalacia, more pronounced on the left, with ex vacuo dilation of the lateral ventricle frontal horns, may relate to sequelae of remote ischemia. Right high frontal r egion of loss of cordova-white matter differentiation and hypoattenuation, and other patchy right centru m semiovale foci of hypoattenuation, correspond to the evolving right MCA territory sequelae of ische sil infarct seen on multiple prior MRI exams. Stable focus of hypoattenuation in the right basal gang grupo region, may relate to a more remote small infarcts Cordova-white matter differentiation elsewhere is preserved, without evidence of acute infarct. No abnormal extra-axial fluid collections. Left maxillary sinus mucous retention cyst. Mastoid air cells are well aerated. No acute bony findings. 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 No evidence of an acute int racranial process otherwise. Other stable chronic findings including bilateral frontal region and right thalamus presumed sequelae of remote ischemia.
[2023-03-30 11:59] LABS: Potassium 4.2 mEq/L (3.5-5.1)
[2023-03-30 12:18] LABS: Protime INR 0.8
--- NOTE | 2023-03-30 12:45 | EDPHYS ---
Physician Documentation [facility] Name: Cristobal Eduardo Age: 57 yrs Sex: Male : 1965 Arrival Date: 03/30/2023 Time: 11:00 Bed 7 Private MD: ED Physician Colin Lazcano HPI: 03/30 11:05 This 57 yrs old Male presents to ER via EMS with complaints of Fall Injury. rn 11:05 Details of fall: The patient fell from an upright position, while standing. Onset: The rn symptoms/episode began/occurred just prior to arrival. Associated injuries: The patient sustained injury to the head. Severity of symptoms: At their worst the symptoms were mild, in the emergency department the symptoms are unchanged. The patient has experienced similar episodes in the past. Pt with multiple falls in past, fell again today and hit head on floor, no LOC, takes aspirin. [facility] reports multiple calls in past for falls. . Historical: - Allergies: 11:02 No Known Allergies; bp - Home Meds: 11:02 None [Active]; bp - PMHx: 11:02 CVA w/ R sided deficits; diabetes mellitus; Hypertensive disorder; Kidney disease; bp - Immunization history:: Adult Immunizations up to date. - Social history:: Smoking status: Patient denies any tobacco usage or history of. - Family history:: not pertinent. - Hospitalizations: : No recent hospitalization is reported. ROS: 11:05 Constitutional: Negative for fever, chills, and weight loss, Eyes: Negative for injury, rn pain, redness, and discharge, Neck: Negative for injury, pain, and swelling, Cardiovascular: Negative for chest pain, palpitations, and edema, Respiratory: Negative for shortness of breath, cough, wheezing, and pleuritic chest pain, Abdomen/GI: Negative for abdominal pain, nausea, vomiting, diarrhea, and constipation, Back: Negative for injury and pain, : Negative for injury, bleeding, discharge, and swelling, MS/Extremity: Negative for injury and deformity, Skin: Negative for injury, rash, and discoloration, Neuro: + headache and generalized weakness Exam: 11:05 Constitutional: This is a well developed, well nourished patient who is awake, alert, rn and in no acute distress. Head/Face: Normocephalic, atraumatic. ENT: dry MM Neck: No midline cervical tenderness Chest/axilla: No rib tenderness Cardiovascular: Tachycardic, regular. No pulse deficits. Respiratory: No increased work of breathing, no retractions or nasal flaring. Abdomen/GI: Soft, non-tender Back: No spinal tenderness. Skin: Warm, dry MS/ Extremity: Pulses equal, no cyanosis Neuro: Awake and alert, GCS 15 Vital Signs: 11:01 BP 129 / 101; Pulse 115; Resp 20; Temp 98; Pulse Ox 98% ; bp 11:38 BP 180 / 95; Pulse 102; Resp 16; Pulse Ox 98% ; bp 12:25 BP 186 / 94; Pulse 106; Resp 19; Pulse Ox 100% on R/A; Pain 0/10; nj1 12:55 BP 179 / 104; Pulse 113; Resp 16; Pulse Ox 98% ; bp 13:47 BP 161 / 107; Pulse 116; Resp 18; Pulse Ox 98% ; Pain 0/10; nj1 16:15 Pulse 114; Resp 19; Pulse Ox 100% on R/A; Pain 0/10; nj1 17:00 BP 194 / 96; Pulse 116; Resp 18; Pulse Ox 99% on R/A; Pain 0/10; nj1 18:00 BP 183 / 106; Pulse 119; Resp 19; Pulse Ox 99% ; Pain 0/10; nj1 19:15 BP 160 / 102; Pulse 126; Resp 20; Pulse Ox 98% ; nj1 12:25 Pain Scale: Adult nj1 13:47 Pain Scale: Adult nj1 16:15 Pain Scale: Adult nj1 17:00 Pain Scale: Adult nj1 18:00 Pain Scale: Adult nj1 MDM: 11:02 Patient medically screened. rn 12:43 Differential diagnosis: closed head injury, contusion, fracture. Data reviewed: vital rn signs, nurses notes, lab test result(s), radiologic studies, CT scan, and as a result, I will discharge patient. Counseling: I had a detailed discussion with the patient and/or guardian regarding: the historical points, exam findings, and any diagnostic results supporting the discharge/admit diagnosis, lab results, radiology results, the need for outpatient follow up, to return to the emergency department if symptoms worsen or persist or if there are any questions or concerns that arise at home. Response to treatment: the patient's symptoms have mildly improved after treatment. Special discussion: Based on the patient's history, exam and DX evaluation, there is no indication for emergent intervention or inpatient TX. It is understood by the patient/guardian that if the SXs persist or worsen they need to return immediately for re-evaluation. I discussed with the patient/guardian in detail that at this point there is no indication for admission to the hospital. It is understood, however, that if the symptoms persist or worsen the patient needs to return immediately for re-evaluation. 15:40 ED course: Family here, states not as his baseline even after stroke, is usually able rn to stand and walk with walker or assistance, we tried to stand patient and legs gave out, still tachycardic, weak, will obs to hospitalist. . 17:54 ED course: Brother came by, states slow decline since initial stroke, sits all day rn watching tv, doesn't eat or drink, and progressive decline. CT does not show acute changes, only expected evolution of known previous CVA. . 03/30 11:04 Order name: CBC with Diff; Complete Time: 11:52 rn 03/30 11:04 Order name: Basic Metabolic Panel; Complete Time: 12:27 rn 03/30 11:04 Order name: Protime (+inr); Complete Time: 12:27 rn 03/30 11:04 Order name: Ptt, Activated; Complete Time: 12:27 rn 03/30 11:49 Order name: Glucose, Ancillary Testing; Complete Time: 11:52 EDMS 03/30 12:52 Order name: Urinalysis w/ reflexes; Complete Time: 13:14 rn 03/30 16:59 Order name: Magnesium EDMS 03/30 16:59 Order name: Phosphorus EDMS 03/30 16:59 Order name: T4 Free EDMS 03/30 16:59 Order name: Thyroid Stimulating Hormone EDMS 03/30 16:59 Order name: Urinalysis w/ reflexes EDMS 03/30 16:59 Order name: Basic Metabolic Panel EDMS 03/30 16:59 Order name: Basic Metabolic Panel EDMS 03/30 16:59 Order name: CBC with Automated Diff EDMS 03/30 16:59 Order name: CBC with Automated Diff EDMS 03/30 16:59 Order name: Lipid Profile EDMS 03/30 16:59 Order name: Lipid Profile EDMS 03/30 11:02 Order name: CT Head Brain wo Cont; Complete Time: 11:52 rn 03/30 16:59 Order name: 60g Consistent Carbohydrate (ADA ) EDMS 03/30 11:04 Order name: IV Start; Complete Time: 11:05 rn 03/30 11:04 Order name: Glucose Level; Complete Time: 11:05 rn Administered Medications: 11:30 Drug: NS 0.9% IV 1000 ml Route: IV; Rate: 1000 ml; Site: left antecubital; nj1 12:30 Follow up: Response: No adverse reaction; IV Status: Completed infusion; IV Intake: nj1 1000ml 12:55 Drug: NS 0.9% IV 500 ml Route: IV; Rate: bolus; Site: left forearm; nj1 14:30 Follow up: Response: No adverse reaction; IV Status: Completed infusion; IV Intake: nj1 500ml 19:28 Drug: Metoprolol PO 25 mg Route: PO; nj1 Disposition Summary: 03/30/23 15:41 Hospitalization Ordered Hospitalization Status: Observation rn Provider: Mathew Lazcano rn Location: Telemetry/MedSurg (observation)(03/30/23 15:41) rn Condition: Stable(03/30/23 15:41) rn Problem: new(03/30/23 15:41) rn Symptoms: are unchanged(03/30/23 15:41) rn Bed/Room Type: Standard rn Room Assignment: 211(03/30/23 19:46) cg Diagnosis - Fall on same level, unspecified rn - Muscle weakness (generalized) rn Forms: - Medication Reconciliation Form rn - SBAR form rn Signatures: Dispatcher [employer] EDWV Colin Lazcano MD MD rn Attema, Lee, BEATER LEAD-C BEATER LEAD-Cla1 Lenka Rosas, RN RN cg Jeff Bautista, RN RN bp Viviana Dooley, RN RN nj1 Corrections: (The following items were deleted from the chart) 11:03 11:02 PMHx: pre-diabetic; bp bp 15:40 12:44 Home rn rn 15:40 12:44 new rn rn 15:40 12:44 have improved rn rn 15:40 12:44 Stable rn rn 15:40 12:44 Unspecified injury of head, initial encounter rn rn 19:46 15:41 rn cg
--- NOTE | 2023-03-30 12:45 | ER ---
Nurse's Notes [facility] Name: Cristobal Eduardo Age: 57 yrs Sex: Male : 1965 Arrival Date: 03/30/2023 Time: 11:00 Bed 7 Private MD: Diagnosis: Fall on same level, unspecified;Muscle weakness (generalized) Presentation: 03/30 11:01 Chief complaint: EMS states: FALL FROM WHEELCHAIR, FREQ H/O SAME. Coronavirus screen: bp At this time, the client does not indicate any symptoms associated with coronavirus-19. Ebola Screen: No symptoms or risks identified at this time. Initial Sepsis Screen: Does the patient meet any 2 criteria? HR > 90 bpm. No. Patient's initial sepsis screen is negative. Does the patient have a suspected source of infection? No. Patient's initial sepsis screen is negative. Risk Assessment: Do you want to hurt yourself or someone else? Patient reports no desire to harm self or others. Onset of symptoms was March 30, 2023 at 07:00. Care prior to arrival: IV initiated. 20 GA, in the left forearm, Glucose check: 268. 11:01 Method Of Arrival: EMS: [facility] bp 11: Acuity: [facility] 3 bp Triage Assessment: 11:02 General: Appears unkempt, Behavior is calm, cooperative, appropriate for age. Pain: bp Complains of pain in scalp. EENT: No deficits noted. Neuro: Level of Consciousness is awake, alert, obeys commands, Oriented to Appropriate for age. Injury Description: NONE NOTED. Historical: - Allergies: 11: No Known Allergies; bp - Home Meds: 11: None [Active]; bp - PMHx: 11: CVA w/ R sided deficits; diabetes mellitus; Hypertensive disorder; Kidney disease; bp - Immunization history:: Adult Immunizations up to date. - Social history:: Smoking status: Patient denies any tobacco usage or history of. - Family history:: not pertinent. - Hospitalizations: : No recent hospitalization is reported. Screenin:04 [facility] ED Fall Risk Assessment (Adult) History of falling in the last 3 months, bp including since admission Yes- fall prone (multiple falls) (3 pts). Abuse screen: Denies threats or abuse. Denies injuries from another. Nutritional screening: No deficits noted. Tuberculosis screening: No symptoms or risk factors identified. Assessment: 11:04 General: SEE TRIAGE NOTE. bp 11:30 Reassessment: Patient appears in no apparent distress at this time. Patient and/or nj1 family updated on plan of care and expected duration. Pain level reassessed. Patient is alert, oriented x 3, equal unlabored respirations, skin warm/dry/pink. Patient denies pain at this time. 12:25 Reassessment: No changes from previously documented assessment. nj1 12:55 Reassessment: DC ON HOLD FOR IVF. bp 14:42 Reassessment: DC ON HOLD FOR FAMILY TRANSPORT. bp 15:30 Reassessment: Patient assisted to bedside commode. Patient having a lot of trouble nj1 getting up, assisted to wheelchair x two. Dr Lazcano aware/notified. Patients brother in ED, Dr Lazcano to speak with brother. 15:33 Reassessment: pt unable to stand without 2 assist , brother speaking to Dr. Lazcano. iw 15:46 Reassessment: pt will be admitted. iw 16:00 Reassessment: Patient appears in no apparent distress at this time. Patient and/or nj1 family updated on plan of care and expected duration. Pain level reassessed. Patient is alert, oriented x 3, equal unlabored respirations, skin warm/dry/pink. Room/patient cleaned, pt assisted back to bed x3. Patient denies pain at this time. 17:00 Reassessment: Patient appears in no apparent distress at this time. Patient and/or nj1 family updated on plan of care and expected duration. Pain level reassessed. Patient is alert, oriented x 3, equal unlabored respirations, skin warm/dry/pink. 18:00 Reassessment: Patient appears in no apparent distress at this time. Patient and/or nj1 family updated on plan of care and expected duration. Pain level reassessed. Patient is alert, oriented x 3, equal unlabored respirations, skin warm/dry/pink. 19:00 Reassessment: Patient appears in no apparent distress at this time. Patient and/or nj1 family updated on plan of care and expected duration. Pain level reassessed. Patient is alert, oriented x 3, equal unlabored respirations, skin warm/dry/pink. 20:00 Reassessment: Not in room, at MRI. nj1 20:19 Reassessment: 2 unsuccessful attempts to call report, phone rings, no answer. nj1 20:36 Reassessment: Pt back from MRI, to be taken to room 211 at this time. nj1 Vital Signs: 11:01 BP 129 / 101; Pulse 115; Resp 20; Temp 98; Pulse Ox 98% ; bp 11:38 BP 180 / 95; Pulse 102; Resp 16; Pulse Ox 98% ; bp 12:25 BP 186 / 94; Pulse 106; Resp 19; Pulse Ox 100% on R/A; Pain 0/10; nj1 12:55 BP 179 / 104; Pulse 113; Resp 16; Pulse Ox 98% ; bp 13:47 BP 161 / 107; Pulse 116; Resp 18; Pulse Ox 98% ; Pain 0/10; nj1 16:15 Pulse 114; Resp 19; Pulse Ox 100% on R/A; Pain 0/10; nj1 17:00 BP 194 / 96; Pulse 116; Resp 18; Pulse Ox 99% on R/A; Pain 0/10; nj1 18:00 BP 183 / 106; Pulse 119; Resp 19; Pulse Ox 99% ; Pain 0/10; nj1 19:15 BP 160 / 102; Pulse 126; Resp 20; Pulse Ox 98% ; nj1 12:25 Pain Scale: Adult nj1 13:47 Pain Scale: Adult nj1 16:15 Pain Scale: Adult nj1 17:00 Pain Scale: Adult nj1 18:00 Pain Scale: Adult ia1 ED Course: 11:00 Patient arrived in ED. bp 11:01 Viviana Dooley RN is Primary Nurse. nj1 11:01 Bed in low position. Side rails up X 1. Client placed on continuous cardiac and pulse mb4 oximetry monitoring. NIBP monitoring applied. Pulse ox on. NIBP on. 11:02 Colin Lazcano MD is Attending Physician. rn 11:02 Triage completed. bp 11:02 Arm band placed on. bp 11:04 Maintain EMS IV. Dressing intact. Good blood return noted. Site clean \T\ dry. Gauge \T\ bp site: 20 LEFT FA. 11:18 CT Head Brain wo Cont In Process Unspecified. EDMS 14:25 No provider procedures requiring assistance completed. nj1 15:41 Mathew Lazcano MD is Hospitalizing Provider. rn 16:00 Patient has correct armband on for positive identification. Placed in gown. Bed in low nj1 position. Call light in reach. Side rails up X 1. 19:10 Notified Nurse Practitioner and/or Physician Linen Attendant of vital signs. nj1 20:35 Patient admitted, IV remains in place. nj1 Administered Medications: 11:30 Drug: NS 0.9% IV 1000 ml Route: IV; Rate: 1000 ml; Site: left antecubital; nj1 12:30 Follow up: Response: No adverse reaction; IV Status: Completed infusion; IV Intake: nj1 1000ml 12:55 Drug: NS 0.9% IV 500 ml Route: IV; Rate: bolus; Site: left forearm; nj1 14:30 Follow up: Response: No adverse reaction; IV Status: Completed infusion; IV Intake: nj1 500ml 19:28 Drug: Metoprolol PO 25 mg Route: PO; nj1 Medication: 11:04 VIS not applicable for this client. bp Intake: 12:30 IV: 1000ml; Total: 1000ml. nj1 14:30 IV: 500ml; Total: 1500ml. nj1 Outcome: 12:44 Discharge ordered by . rn 14:25 Discharged to home via wheelchair, with family. nj1 14:25 Condition: stable 14:25 Discharge instructions given to patient, Instructed on discharge instructions, follow up and referral plans. safety practices, Demonstrated understanding of instructions, follow-up care. 15:41 Decision to Hospitalize by Provider. rn 20:30 Admitted to Med/surg accompanied by tech, via stretcher, room 211, Report called to ia1 Nurse Karen. 20:30 Condition: stable nj1 20:30 Instructed on the need for admit. 20:37 Patient left the ED. nj1 Signatures: Dispatcher [employer] EDMS Gisela Norman RN RN iw Nieto, Roman, MD MD rn Peltier, Brian, RN RN bp Baxter, Mackenzie mb4 Viviana Dooley RN RN nj1 Corrections: (The following items were deleted from the chart) 11:03 11:02 PMHx: pre-diabetic; bp bp 16:34 16:15 Pulse 114bpm; Resp 19bpm; Pulse Ox 100% RA; nj1 nj1
[2023-03-30] MEDS ORDERED: NA CHLORIDE 0.9% 500 ML ONE (13:01)
[2023-03-30 13:09] LABS: Specific Gravity 1.018 (1.005-1.030); Urine Bacteria None Seen /HPF (<20); Urine Bilirubin NEGATIVE (Negative); Urine Blood 1+ (Negative); Urine Clarity Clear (Clear); Urine Color Light-Yellow (Yellow); Urine Glucose 2+ (Negative); Urine Mucus Slight /HPF (None Seen); Urine Protein 2+ (Negative); Urine RBC None Seen /HPF (None Seen); Urine Urobilinogen Normal (Normal); Urine pH 5.5 (5.0-7.0)
[2023-03-30] MEDS ORDERED: ACETAMINOPHEN 325 MG TABLET PO PRN (16:51)
[2023-03-30] MEDS ORDERED: TRAMADOL HCL 50 MG TAB PO PRN (16:51)
[2023-03-30] MEDS ORDERED: ONDANSETRON 4 MG/2 ML VIAL IV PRN (16:56)
[2023-03-30] MEDS: HYDRALAZINE HCL 20 MG/ML VIAL IV ONE ×2 (17:43→17:45)
[2023-03-30] MEDS ORDERED: ENOXAPARIN 40 MG/0.4 ML SQ ONE (17:52)
[2023-03-30] MEDS ORDERED: HYDRALAZINE HCL 20 MG/ML VIAL ONE (17:52)
[2023-03-30] MEDS ORDERED: ENOXAPARIN 40 MG/0.4 ML SQ SCH (18:00)
[2023-03-30 18:43] LABS: Magnesium 1.7 mg/dL (1.6-2.4); Phosphorus 2.4 mg/dL (2.5-4.9); Thyroid Stimulating Hormone 0.455 uIU/mL (0.358-3.740)
--- NOTE | 2023-03-30 19:27 | P.HP ---
Certification for Inpatient Patient admitted to: Inpatient With expected LOS: >2 Midnights Patient will require the following post-hospital care: None Practitioner: I am a practitioner with admitting privileges, knowledge of patient current condition, hospital course, and medical plan of care. Services: Services provided to patient in accordance with Admission requirements found in Title 42 Section 412.3 of the Code of Federal Regulations Patient History Date of Service: 03/30/23 Reason for admission: Right-sided weakness History of Present Illness: Patient is a 57-year-old male with a past medical history significant for CVA with right-sided deficit, DM 2, CKD, hypertension who presents with complaint of worsening right sided weakness and frequent falls. Patient reported that he has been falling frequently. Patient indicated that he fell twice this morning and he hit his head. Patient denies losing consciousness. Patient reported that he has having difficulty with some ADLs. Patient reported that he has not been able to take his medications in the last 3 days because his daughter that arranges his medications has been out on vacation. Patient denies any other signs and symptoms. Symptoms are aggravated or relieved by nothing. Patient was brought to the hospital for medical evaluation. Of note, patient has been calling EMS anytime he had a fall in the past. Allergies No Known Allergies Allergy (Unverified 06/01/22 09:44) Home Medications: Metoprolol Tartrate [Lopressor*] 25 mg PO BID #60 tab 06/03/22 Bupropion *Xl* [Wellbutrin XL*] 1 tab PO DAILY 01/01/23 Glimepiride 1 tab PO DAILY 01/01/23 Sertraline HCl 50 mg PO DAILY 01/01/23 Trazodone [Desyrel*] 50 mg PO BEDTIME 01/01/23 Aspirin Chewable [Aspirin Chewable*] 81 mg PO DAILY #1 tab.chew 01/06/23 Atorvastatin Calcium 40 mg PO BEDTIME #30 tab 01/06/23 Clopidogrel Bisulfate [Plavix*] 75 mg PO DAILY #30 tab 01/06/23 Folic Acid 1 mg PO DAILY #1 01/06/23 Terbinafine HCl [Lamisil At] 1 kimberly TP BID #24 g 01/28/23 - Past Medical/Surgical History Diabetic: Yes -: Hypertension -: CKD3b -: Obesity -: CVA Past Surgical History: Reviewed- Non-Contributory Psychosocial/ Personal History: Patient is . - Family History Family History: Reviewed- Non-Contributory - Social History Smoking Status: Never smoker Alcohol use: No CD- Drugs: Yes Caffeine use: No Place of Residence: Home Review of Systems General: Weakness Eyes: Unremarkable ENT: Unremarkable Respiratory: Unremarkable Cardiovascular: Unremarkable Gastrointestinal: Unremarkable Genitourinary: Unremarkable Musculoskeletal: Unremarkable Integumentary: Unremarkable Neurological: Unremarkable Lymphatics: Unremarkable Physical Examination - Physical Exam General: Alert, In no apparent distress, Oriented x3, Cooperative HEENT: Atraumatic, PERRLA, Mucous membr. moist/pink, EOMI, Sclerae nonicteric Neck: Supple, 2+ carotid pulse no bruit, No LAD, Without JVD or thyroid abnormality Respiratory: Clear to auscultation bilaterally, Normal air movement Cardiovascular: No edema, Regular rate/rhythm, Normal S1 S2 Capillary refill: <2 Seconds Gastrointestinal: Normal bowel sounds, Soft and benign, No tenderness Musculoskeletal: No clubbing, No swelling, No tenderness Integumentary: No rashes Neurological: Normal speech, Normal tone, Normal affect, Abnormal gait, Abnormal strength Lymphatics: No axilla or inguinal lymphadenopathy - Studies Laboratory Data (last 24 hrs) 03/30/23 11:37: PT 9.6, INR 0.80, APTT 26.9 03/30/23 11:37: Sodium 141, Potassium 4.2, BUN 26 H, Creatinine 1.91 H, Glucose 226 H 03/30/23 11:37: WBC 14.40 H, Hgb 14.5, Hct 43.8, Plt Count 232 Assessment and Plan - Plan --Right-sided weakness. Patient had a CVA in December 2022 which resulted in significant right-sided weakness. Patient reports worsening right-sided weakness and subsequent frequent falls. CT head does not indicate any acute intracranial abnormality. MRI brain pending for further evaluation. Continue aspirin, folic acid and statin. PT eval and treat. Continue supportive care. -History of CVA with right-sided deficit. Continue current treatment regimen listed above. ---DM2 with hyperglycemia. BS monitoring with sliding scale insulin. --Hypertension. Will allow for permissive hypertension pending resolution of MRI to rule out CVA. Labetalol as needed for SBP greater than 180 mmHg. --Hyperlipidemia. Continue statin. --CKD 3B. Renal function is stable compared to levels 3 months ago. We will continue to monitor renal functions. --Leukocytosis. Likely reactive. We will continue to monitor WBC levels. -- DVT prophylaxis with Lovenox subQ. -- Discharge planning. Case management consulted for assistance with resources for ADLs and medication compliance. Discharge Plan: Home Plan to discharge in: Greater than 2 days - Advance Directives Does patient have a Living Will: No Does patient have a Durable POA for Healthcare: No - Code Status/Comfort Care Code Status Assessed: Yes Physician Review: Patient Assessed, Agree with Above Assessment and Plan Critical Care: No
[2023-03-30] MEDS ORDERED: METOPROLOL TAR 25 MG TAB ONE (19:35)
[2023-03-30] MEDS ORDERED: LABETALOL 20 MG/4ML SYRINGE IV PRN (19:40)
[2023-03-30] MEDS ORDERED: ASPIRIN 81 MG CHEWABLE TABLET PO SCH (20:00)
[2023-03-30] MEDS ORDERED: FOLIC ACID 1 MG TABLET PO SCH (20:00)
[2023-03-30] MEDS ORDERED: INSULIN -REGULAR HUMAN 50 UNIT/0.5 ML ML SQ SCH (21:00)
[2023-03-30] MEDS ORDERED: ATORVASTATIN 40 MG TAB PO SCH (21:00)
[2023-03-30 21:07] VITALS: O2SAT 98
--- NOTE | 2023-03-30 21:14 | RAD REPORT ---
EXAM DESCRIPTION: MRI - Brain Wo Cont - 03/30/2023 8:31 pm CLINICAL HISTORY: cva COMPARISON: Head CT March 30, 2023 TECHNIQUE: Axial, sagittal, and coronal magnetic resonance images of the brain were obtained. FINDINGS: Diffusion-weighted/ADC mapping demonstrate moderate abnormal signal right frontal lobe. Several small areas abnormal signal are present within the right parietal lobe. These are compatible with acute in farcts. Additional late subacute right frontal lobe infarct present. Old left cerebral infarct The ventricles are normal caliber. An extra-axial fluid collection is not noted. Fluid within the sinuses/mastoids is not seen IMPRESSION: Acute right frontal and right parietal lobe infarcts. These may the sequela of right int ernal carotid disease
[2023-03-30] MEDS ORDERED: CLOPIDOGREL 75 MG TABLET PO ONE (21:45)
--- NOTE | 2023-03-30 22:46 | RAD REPORT ---
EXAM DESCRIPTION: USCarotid Artery Bilateral03/30/2023 10:30 pm CLINICAL HISTORY: Carotid stenosis COMPARISON: December 2022 FINDINGS: The velocity of the right internal carotid artery equals 123 cm/sec. The right ICA/CCA rat io normal The velocity of the left internal carotid artery equals 80 cm/sec. The left ICA/CCA ratio normal Limited evaluation of distal left internal carotid artery Mild plaque is present within the carotid arteries. The vertebral arteries demonstrate antegrade flow IMPRESSION: Mild plaque within the carotid arteries without evidence of a hemodynamically significan t stenosis The CT from December 2022 demonstrated significant plaque within internal carotid arteries bilaterally. If the patient has not had surgical intervention since the December 2022 exam then the nonvisualization of significant plaque on today's ultrasound probably is due to technical factors. It is recommended t hat the patient either have a CT angiogram neck or MRA neck to further evaluate the carotid arteries NASCET criteria used. Mild 0-49% stenosis Moderate 50-69% stenosis Severe 70-99% stenosis
[2023-03-30 23:13] VITALS: BMI 34.9
[2023-03-31 00:09] VITALS: BP 160/82; TEMP 98.2
--- NOTE | 2023-03-31 00:55 | P.DS ---
Admission Date: 03/30/23 Discharge Date: 03/31/23 Disposition: TRANSFER TO [facility] Discharge Condition: FAIR Reason for Admission: CVA Procedures: CT head 03/30/2023 FINDINGS: No intracranial hemorrhage, mass, or edema. Midline structures are unremarkable. Normal ventricular caliber for age. Bilateral frontal regions of encephalomalacia, more pronounced on the left, with ex vacuo dilation of the lateral ventricle frontal horns, may relate to sequelae of remote ischemia. Right high frontal region of loss of cordova-white matter differentiation and hypoattenuation, and other patchy right centrum semiovale foci of hypoattenuation, correspond to the evolving right MCA territory sequelae of ischemic infarct seen on multiple prior MRI exams. Stable focus of hypoattenuation in the right basal ganglia region, may relate to a more remote small infarcts Cordova- white matter differentiation elsewhere is preserved, without evidence of acute infarct. No abnormal extra-axial fluid collections. Left maxillary sinus mucous retention cyst. Mastoid air cells are well aerated. No acute bony findings. 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 No evidence of an acute intracranial process otherwise. Other stable chronic findings including bilateral frontal region and right thalamus presumed sequelae of remote ischemia. MRI brain without contrast 03/30/2023 FINDINGS: Diffusion-weighted/ADC mapping demonstrate moderate abnormal signal right frontal lobe. Several small areas abnormal signal are present within the right parietal lobe. These are compatible with acute infarcts. Additional late subacute right frontal lobe infarct present. Old left cerebral infarct The ventricles are normal caliber. An extra-axial fluid collection is not noted. Fluid within the sinuses/mastoids is not seen IMPRESSION: Acute right frontal and right parietal lobe infarcts. These may the sequela of right internal carotid disease Neck angio 01/01/2023 FINDINGS: A left aortic arch is identified with normal three vessel configuration of the great vessels. There is a large soft plaque measuring about 10 mm in length involving the right carotid bulb. There is moderate to significant soft plaque also left proximal internal carotid artery. Stenosis is significant estimated at 70-80% bilaterally. Normal flow is seen within both vertebral arteries. IMPRESSION: Predominately soft plaque is seen in both internal carotid arteries proximal in resulting in 70-80% stenosis bilaterally based on NASCET criteria. MRI brain without 01/03/2023 FINDINGS: Moderate to large area of abnormal signal medial left frontal lobe compatible with old infarct. Diffusion-weighted/ADC mapping demonstrates multiple small areas of abnormal signal compatible with acute infarction involving predominantly the periventricular, deep and subcortical white matter right frontal lobe. Small amount of right frontal lobe cordova matter affected as well. The the areas of infarction vary in size from a few millimeters to 10 millimeters. The ventricles are normal caliber. An extra-axial fluid collection is not noted. Fluid within the sinuses/mastoids is not seen IMPRESSION: Acute right frontal lobe infarction Old left frontal lobe infarction Brief History of Present Illness: Patient is a 57-year-old male with a past medical history significant for CVA with right-sided deficit, DM 2, CKD, hypertension who presents with complaint of worsening right sided weakness and frequent falls. Patient reported that he has been falling frequently. Patient indicated that he fell twice this morning and he hit his head. Patient denies losing consciousness. Patient reported that he has having difficulty with some ADLs. Patient reported that he has not been able to take his medications in the last 3 days because his daughter that arranges his medications has been out on vacation. Patient denies any other signs and symptoms. Symptoms are aggravated or relieved by nothing. Patient was brought to the hospital for medical evaluation. Of note, patient has been calling EMS anytime he had a fall in the past. Hospital Course: Patient was admitted for weakness, falls. He had a fall around 0400 on 03/30/2023 and had not been able to stand up since then, he has right-sided weakness/decreased sensation at baseline, he is now noted to have left lower extremity weakness on exam. His CT showed no significant acute findings, MRI was performed today which revealed right frontal and right parietal acute CVA which radiology commented may be related to internal carotid stenosis. He had a CTA of his neck in December of this year which showed 70 to 80% carotid stenosis bilaterally. Given his acute CVA, stenosis of his carotid arteries and our lack of neurology/vascular coverage a transfer was initiated to [facility]. I discussed the case with neurology Dr. Rodríguez and hospitalist Dr. Salinas who have graciously excepted the patient for further evaluation under neuro telemetry unit. I discussed this at length with patient who is agreeable with plan of care currently. Vital Signs/Physical Exam: Temp Pulse Resp BP Pulse Ox 98.2 F 107 H 20 160/82 H 94 03/31/23 00:08 03/31/23 00:08 03/31/23 00:08 03/31/23 00:08 03/31/23 00:08 General: Alert, In no apparent distress, Oriented x3 HEENT: Atraumatic, PERRLA, EOMI Neck: Supple, JVD not distended Respiratory: Clear to auscultation bilaterally, Normal air movement Cardiovascular: Regular rate/rhythm, Normal S1 S2 Gastrointestinal: Normal bowel sounds, No tenderness Musculoskeletal: No tenderness Integumentary: No rashes Neurological: Normal speech, Normal affect, Other (NIH 7), Abnormal strength (4/5 SHASHANK upper extremity, 3/5 SHASHANK lower ext.), Abnormal sensation (decreased se nsation on right upper and lower extremity.) Laboratory Data at Discharge: WBC 14.40 thou/uL (4.3-10.9) H 03/30/23 11:37 Hgb 14.5 g/dL (13.6-17.9) 03/30/23 11:37 Hct 43.8 % (39.6-49.0) 03/30/23 11:37 Plt Count 232 thou/uL (152-406) 03/30/23 11:37 PT 9.6 SECONDS (9.2-12.8) 03/30/23 11:37 INR 0.80 03/30/23 11:37 APTT 26.9 SECONDS (21.7-34.4) 03/30/23 11:37 Sodium 141 mEq/L (136-145) 03/30/23 11:37 Potassium 4.2 mEq/L (3.5-5.1) 03/30/23 11:37 BUN 26 mg/dL (7-18) H 03/30/23 11:37 Creatinine 1.91 mg/dL (0.70-1.30) H 03/30/23 11:37 Glucose 226 mg/dL (74-106) H 03/30/23 11:37 Phosphorus 2.4 mg/dL (2.5-4.9) L 03/30/23 18:02 Magnesium 1.7 mg/dL (1.6-2.4) 03/30/23 18:02 Home Medications: Metoprolol Tartrate [Lopressor*] 25 mg PO BID #60 tab 06/03/22 Bupropion *Xl* [Wellbutrin XL*] 1 tab PO DAILY 01/01/23 Glimepiride 1 tab PO DAILY 01/01/23 Sertraline HCl 50 mg PO DAILY 01/01/23 Trazodone [Desyrel*] 50 mg PO BEDTIME 01/01/23 Aspirin Chewable [Aspirin Chewable*] 81 mg PO DAILY #1 tab.chew 01/06/23 Atorvastatin Calcium 40 mg PO BEDTIME #30 tab 01/06/23 Clopidogrel Bisulfate [Plavix*] 75 mg PO DAILY #30 tab 01/06/23 Folic Acid 1 mg PO DAILY #1 01/06/23 Terbinafine HCl [Lamisil At] 1 kimberly TP BID #24 g 01/28/23 Diet: ADA Activity: Fall precautions Followup: NONE,NONE [Primary Care Provider] - Time spent managing pt's care (in minutes): 35
[2023-03-31 03:06] LABS: Hematocrit 42.9 % (39.6-49.0); Lymphocytes % 16.6 % (15.3-44.8); MCV 86.4 fL (80-100); MPV 8.7 fL (7.6-11.3); RBC Red Blood Cell Count 4.97 M/uL (4.33-5.43)
[2023-03-31 03:32] LABS: Potassium 3.7 mEq/L (3.5-5.1)
[2023-03-31] MEDS ORDERED: CLOPIDOGREL 75 MG TABLET PO SCH (09:00)
[2023-03-31] MEDS ORDERED: FOLIC ACID 1 MG TABLET PO SCH (09:00)
[2023-03-31] MEDS ORDERED: METOPROLOL TAR 25 MG TAB PO SCH (09:00)
[2023-03-31] MEDS ORDERED: ASPIRIN 81 MG CHEWABLE TABLET PO SCH (09:00)
== END 2023-03-31 03:00 | disposition short-term general hospital (02) | DRG 65 ==
LOC: ER 11:00 → ERHOLD 16:50 → 2ND 19:58
PROVIDERS: ADMIT Hospitalist; ATTEND Hospitalist
DX: I63.9 Cerebral infarction, unspecified (principal); I69.351 Hemiplegia and hemiparesis following cerebral infarction affecting right dominant side; I12.9 Hypertensive chronic kidney disease with stage 1 through stage 4 chronic kidney disease, or unspecified chronic kidney disease; N18.32 Chronic kidney disease, stage 3b; E11.22 Type 2 diabetes mellitus with diabetic chronic kidney disease; E11.65 Type 2 diabetes mellitus with hyperglycemia; E78.5 Hyperlipidemia, unspecified; I65.23 Occlusion and stenosis of bilateral carotid arteries; G83.14 Monoplegia of lower limb affecting left nondominant side; R29.6 Repeated falls; Z63.5 Disruption of family by separation and divorce; Z79.84 Long term (current) use of oral hypoglycemic drugs; Z79.02 Long term (current) use of antithrombotics/antiplatelets; Z79.82 Long term (current) use of aspirin; Z79.899 Other long term (current) drug therapy; Z20.822 Contact with and (suspected) exposure to COVID-19; W05.0XXA Fall from non-moving wheelchair, initial encounter
CPT/HCPCS: 36415; 70450; 70551; 80048; 80061; 81001; 82947; 83735; 84100; 84439; 84443; 85025; 85610; 85730; 87635; 93880; 96360; 96361; 99285; J0360; J1650; J1815; J7030; J7040

== ENCOUNTER 2023-04-08 17:33 | Observation (INO) | payer OTHER, SELFPAY ==
--- OUTSIDE RECORDS SUMMARY | 2023-04-08 17:47 | XMS REPORT | Continuity of Care Document ---
:1965 Author Organization [facility] t Address [address] [place] [address] [address] [place] [address] Care Team Providers Name Role Phone Christina Gallo MD Primary Care Physician [phone] ASHLEY PAL Attending Clinician Unavailable ASHLEY PAL Attending Clinician Unavailable Skyler Salinas MD Attending Clinician Maykel Hubbard MD Attending Clinician Dorothy Schneider MD Attending Clinician Thanh Kessler MD Attending Clinician DOROTHY SCHNEIDER Attending Clinician Unavailable THANH KESSLER Attending Clinician Unavailable BROOKS WILKINS Attending Clinician Unavailable SKYLER SALINAS Attending Clinician Unavailable MAYKEL HUBBARD Attending Clinician Unavailable EDD KIMBROUGH Attending Clinician Unavailable EDD KIMBROUGH Attending Clinician Unavailable JAY LANDA Attending Clinician Unavailable IZAIAH JULIAN Attending Clinician Unavailable Doctor Unassigned, [place] Attending Clinician Unavailable GABRIEL WEI Attending Clinician Unavailable GABRIEL WEI Attending Clinician Unavailable Gabriel Wei MD Attending Clinician LAWRENCE ARREDONDO Attending Clinician Unavailable Christina Gallo MD Attending Clinician [phone] Lab, Ang - Db Attending Clinician Unavailable CHRISTINA GALLO Attending Clinician Unavailable Mario Gil Attending Clinician Ronen, General Cardiology Attending Clinician Unavailable MARIO VILLALOBOS Attending Clinician Unavailable RADHA RODRIGUEZ Attending Clinician Unavailable Lawrence Arredondo MD Attending Clinician BERNARD GALLARDO Attending Clinician Unavailable VIDHI DODD Attending Clinician Unavailable GT PURCELL Attending Clinician Unavailable Radha Rodriguez Attending Clinician [facility] Sleep Attending Clinician DINORA HAMM Attending [...] Kellie Ivory RN Attending Clinician Unavailable Only, [facility] Test Attending Clinician Unavailable Facundo Galvez MD Attending Clinician Lab, Adc Fam Pob I Attending Clinician Unavailable Odalis Sharp MD Attending Clinician ODALIS SHARP Attending Clinician Unavailable [place] Islander PA-C, Rosaura R Attending Clinician Neurology Attending Clinician Unavailable Jake MCGHEE Trevorakanksha Nieves Attending Clinician 1, Adc Lab Attending Clinician Unavailable ABHISHEK QURESHI Attending Clinician Unavailable Nathaniel PIÑA, Michael Galdamez Attending Clinician Melisa Castellon Attending Clinician Abhishek Qureshi MD Attending Clinician Tereso Nguyen MD Attending Clinician Vivienne Pitts MD Attending Clinician SHAHNAZ MEDLEY Attending Clinician Unavailable Shahnaz Guerra Attending Clinician EDDRICK ROQUE Attending Clinician Unavailable Verena Bryan Attending Clinician MAYKEL HUBBARD Admitting Clinician Unavailable THANH KESSLER Admitting Clinician Unavailable DINORA HAMM Admitting Clinician Unavailable Abhishek Qureshi MD Admitting Clinician SHAHNAZ MEDLEY Admitting Clinician Unavailable Payers Payer Name Policy Type Policy Number Effective Date Expiration Date Akanksha donahue [facility] [id number] 2020 PREFERRED GENERIC 00:00:[address] [facility] [id number] 2022 PPO 00:00:00 [facility] OF [facility] [id number] 2015 OF [facility] 00:00:00 Problems Condition Condition Condition Status Onset Resolution Last Treating Co mments Source Name Details Category Date Date Treatment Clinician Date Diabetes Diabetes Disease Recur[facility] mellitus mellitus nce 04[facility]06 [facility] type 2 in type 2 in 00:00: Medi christelle nonobese nonobese 00 Center Essential Essential Disease Active [facility] hypertensi hypertensi 04-06 Neva kes on on 00:00: Medical 00 Center Stenosis Stenosis Disease Active [facility] right of right 04-06 [facility] carotid carotid 00:00: Medical artery artery 00 Center Type 2 Type [address] [facility] diabetes diabetes nce 04-02 [facility] mellitus mellitus 00:00: Medica l 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 complicati on, on, without without long-term long-term current current use of use of insulin insulin Carotid Carotid Disease Active [facility] artery artery 708 [facility] stenosis, stenosis, 00:00: [facility] christelle symptomati symptomati 00 Ce nter c, right c, right CVA CVA Disease Recurre [facility] (cerebral (cerebral nce 03-31 [facility] vascular vascular 00:00: Medica l accident) accident) 00 Cent er Chronic Chronic Disease Active [facility] kidney kidney 7 [facility] disease disease 00:00: Medical 00 Center History of History of Disease Active [facility] hypertensi hypertensi 03-31 Neva kes on on 00:00: Medical [address] [place] [address] Hospital Disease Active Unive rs discharge discharge 4-19 ity of follow-up [facility] JONAH (acute JONAH (acute Disease Active U nivers kidney kidney 4-19 ity of injury) injury) 00:00: [place] 00 Medical Branch Tachycardi Tachycardi Disease Active U nivers a a 4-19 ity of 00:00: [place] [address] Medical Branch Bilateral Bilateral Disease Active [facility] carotid carotid 4-19 [facility] artery artery 00:00: Medical stenosis stenosis 00 Center NIA NIA Disease Active 2021-09 Univers (obstructi (obstructi 2-12 it y of ve sleep ve sleep 00:00: [place] apnea) apnea) 00 Medical Branch Coronary Coronary Disease Active 2021-09 Unive rs artery artery 2-12 ity of disease disease 00:00: [place] involving involving 00 [facility] [place]elle [place] coronary coronary artery of artery of [place] heart heart without without angina angina pectoris pectoris Coronary Coronary Disease Active 2021-09 [facility] artery artery 2-12 [facility] disease disease 00:00: Medical involving involving 00 Cent er [place] coronary coronary artery of artery of [place] heart heart without without angina angina pectoris pectoris Chest Chest Disease Active 2021-09 Univers pain, pain, 2-02 ity of unspecif[place] type 00 Medical Branch NSTEMI NSTEMI Disease Active 2021-09 Overview: Univer s (non-ST (non-ST 2 Formattin ity o f elevated elevated 00:00: g of this E[place] as myocardial myocardial 00 note Me dical infarction infarction might be Branch ) ) different from the original. Added automatic ally from request for surgery [id number] Obesity Obesity Disease Active Univers (BMI (BMI 1-22 ity of 30-39.9) 30-39.9) 00:00: [place] 00 Medical Branch Stroke Stroke Disease Active Univers 1 ity of 00:00: [place] 00 Medical Branch Acute CVA Acute CVA Disease Recurre [facility] (cerebrova (cerebrova nce 10-16 Neva kes scular scular 00:00: Medical accident) accident) 00 Cent er Type 2 Type 2 Disease Active Univers diabetes diabetes 06-19 ity of mellitus mellitus 00:00: [place] without without 00 Medical complicati complicati Br anch on, on, without without long-term long-term current current use of use of insulin insulin Leukocytos Leukocytos Disease Active U nivers is is 06-19 ity of 00:00: [place] 00 Medical Branch Anxiety Anxiety Disease Active Univers 06-17 ity of 00:00: [place] Medical Branch Morbid Morbid Disease Recurre [facility] obesity obesity nce - [facility] with BMI with BMI 00:00: Medica l of of 00 Center 40.0-44.9, 40.0-44.9, adult adult History of History of Disease Active [facility] CVA CVA 06-17 [facility] (cerebrova (cerebrova 00:00: Me dical scular scular 00 Center accident) accident) Essential Essential Disease Active Uni vers hypertensi hypertensi 6-10 it y of on on 00:00: [place] 00 Medical Branch Hyperlipid Hyperlipid Disease Active [facility] emia with emia with 6-10 Luke s target low target low 00:00: Me dical density density 00 Center lipoprotei lipoprotei n (LDL) n (LDL) cholestero cholestero l less l less than 100 than 100 mg/dL mg/dL Allergies, Adverse Reactions, Alerts Allergy Allergy Status Severity Reaction(s) Onset Inactive Treating Comm ents Source Name Type Date Date Clinician NO KNOWN Drug Active Univers ALLERGIE Class ity of S [facility] NO KNOWN Allergy Active [facility] St ALLERGIE [facility] Social History Social Habit Start Date Stop Date Quantity Comments Source History SDOH University o f Alcohol Frequency [place] M edical Branch History SDVA University o f Alcohol Std [place] Medical Drinks Branch History [facility]VA University o f Alcohol Binge [place] Medic al Branch History SDOH [facility] Non-Med Medical Center History SDOH [facility] Places Medical Ce nter Lived Exposure to 2023-03-21 2023-03-[address] LuEmployee Benefit Plans SARS-CoV-2 00:00:00 06:05:00 Medical Center (event) History [facility] 2023-03-31 2023-03-[address] [facility] Housing Homeless 00:00:00 00:00:00 Medical Center Last Year Alcohol intake 2023-03-31 2023-03-31 Ex-drinker [facility] Cait[facility] es 00:00:00 00:00:00 (finding) Medical Center History [facility] 2023-03-31 2023-03-[address] [facility] Transport Med 00:00:00 00:00:[address] History [facility] 2023-03-31 2023-03-[address] [facility] Housing Unable to 00:00:00 00:00:00 Medical Center Pay Tobacco use and 2022-06-22 2022-06-22 Smokeless tobacco Un iversity of exposure 00:00:00 00:00:00 non-user [facility] Alcohol Comment 2019-04-23 2019-04-23 rarely Universit y of 00:00:00 00:00:00 [facility] Sex [birth year] At [birth year] [facility] St Neva kes 00:00:00 00:00:00 Medical Center Smoking Status Start Date Stop Date Source Never smoked tobacco [facility] Medications Ordered Filled Start Stop Current Ordering Indication Dosage Frequency Signature Comments Components Source Medication Medication Date Date Medication? Clinician (SIG) Name Name sertraline Yes 50mg QD Take 1 [facility] (ZOLOFT) 50 7-13 tablet (50 Neva kes MG tablet 20:04: mg total) Med ical 04 by mouth Center daily. traZODone 2023-0 Yes 50mg QD Take [address] [facility] [address] (DESYREL) - tablet (50 Luke s 50 MG 20:04: mg total) Medical tablet 04 by mouth Center nightly. glipiZIDE 2022-0 Yes 5mg Take [address] [facility] [address] (GLUCOTROL) - tablet (5 Caitlin es 5 MG tablet 20:04: mg total) M edical 04 by mouth 2 Center (two) times daily before meals. buPROPion 2022-0 Yes 150mg QD Take 1 [facility] (WELLBUTRIN - tablet [facility] XL) 150 MG 20:04: (150 mg Medi christelle 24 hr 04 total) by Center tablet mouth daily. metoprolol 2022-0 2022- No 50mg Q.5D Take [address] tartrate 04-07 tablets [facility] (LOPRESSOR) 20:04: 00:00 (50 mg Med ical 25 MG 04 :00 total) by Center tablet mouth 2 (two) times daily. atorvastati 2022-0 2022- No 40mg QD Take [address] [facility] [address] n (LIPITOR) 04-07 tablet (40 L ukes 40 MG 20:04: 00:00 mg total) Medica l tablet 04 :00 by mouth Center daily. amLODIPine 2022-0 2022- No 10mg QD Take [address] [facility] [address] (NORVASC) 04-07 tablet (10 Caitlin es 10 MG 20:04: 00:00 mg total) Medica l tablet 04 :00 by mouth Center daily. aspirin 81 2022-0 2022- No 81mg QD Take [address] MG EC 04-07 tablet (81 [facility] tablet 20:04: 00:00 mg total) Medic al 04 :00 by mouth Center daily. tamsulosin 2022-0 Yes .4mg QD Take 1 [facility] (FLOMAX) 04-07 capsule [facility] 0.4 mg Cap 00:00: (0.4 mg Medi christelle 24 hr 00 total) by Center capsule mouth daily. clopidogreL 2022-0 2023- Yes 75mg QD Take [address] (PLAVIX) 75 04-07 tablet (75 L ukes mg tablet 00:00: 23:59 mg total) Me dical 00 :00 by mouth Center daily . aspirin 81 2022-0 Yes 81mg QD Take 1 [facility] t MG EC 7-12 tablet (81 [facility] tablet 00:00: mg total) Medica l 00 by mouth Center daily. amLODIPine 2022-0 Yes 10mg QD Take 1 [facility] t (NORVASC) 7-12 tablet (10 Luke s 10 MG 00:00: mg total) Medical tablet 00 by mouth Center daily. atorvastati 0 2023- Yes 80mg QD Take [address] n (LIPITOR) 04-06 tablet (80 L ukes 80 MG 00:00: 23:59 mg total) Medica l tablet 00 :00 by mouth Center nightly. metoprolol 2022-0 2023- Yes 50mg Q.5D Take [address] tartrate 04-06 tablet (50 Luke s (LOPRESSOR) 00:00: 23:59 mg total) Medical 50 MG 00 :00 by mouth 2 Center tablet (two) times daily. SERTraline 2022-0 Yes TAKE HALF Un augustine 100 mg 5-01 OF A ity of tablet 00:00: TABLET BY [place] [facility] DAILY X 1 Branch WEEK THEN TAKE 1 TABLET ONCE A DAY BY MOUTH SERTraline 2022-0 Yes TAKE HALF Un augustine 100 mg 5-01 OF A ity of tablet 00:00: TABLET BY [place] [facility] DAILY X 1 Branch WEEK THEN TAKE 1 TABLET ONCE A DAY BY MOUTH SERTraline 2022-0 Yes TAKE HALF Un augustine 100 mg 5-01 OF A ity of tablet 00:00: TABLET BY [place] [facility] DAILY X 1 Branch WEEK THEN TAKE 1 TABLET ONCE A DAY BY MOUTH SERTraline 2022-0 Yes TAKE HALF Un augustine 100 mg 5-01 OF A ity of tablet 00:00: TABLET BY [place] [facility] DAILY X 1 Branch WEEK THEN TAKE 1 TABLET ONCE A DAY BY MOUTH SERTraline 2022-0 Yes TAKE HALF Un augustine 100 mg 5-01 OF A ity of tablet 00:00: TABLET BY [place] [facility] DAILY X 1 Branch WEEK THEN TAKE 1 TABLET ONCE A DAY BY MOUTH SERTraline 2022-0 Yes TAKE HALF Un augustine 100 mg 5-01 OF A ity of tablet 00:00: TABLET BY [address] DAILY X 1 Branch WEEK THEN TAKE 1 TABLET ONCE A DAY BY MOUTH SERTraline 2022-0 Yes TAKE HALF Un augustine 100 mg 5-01 OF A ity of tablet 00:00: TABLET BY [place] [facility] Medical DAILY X 1 Branch WEEK THEN TAKE 1 TABLET ONCE A DAY BY MOUTH SERTraline 2022-0 Yes TAKE HALF Un augustine 100 mg 5-01 OF A ity of tablet 00:00: TABLET BY [place] [facility] Medical DAILY X 1 Branch WEEK THEN TAKE 1 TABLET ONCE A DAY BY MOUTH SERTraline 2022-0 Yes TAKE HALF Un augustine 100 mg 5-01 OF A ity of tablet 00:00: TABLET BY [place] [facility] Medical DAILY X 1 Branch WEEK THEN TAKE 1 TABLET ONCE A DAY BY MOUTH SERTraline 2022-0 Yes TAKE HALF Un augustine 100 mg 5-01 OF A ity of tablet 00:00: TABLET BY [place] [facility] DAILY X 1 Branch WEEK THEN TAKE 1 TABLET ONCE A DAY BY MOUTH SERTraline 2022-0 Yes TAKE HALF Un augustine 100 mg 5-01 OF A ity of tablet 00:00: TABLET BY [place] [facility] DAILY X 1 Branch WEEK THEN TAKE 1 TABLET ONCE A DAY BY MOUTH SERTraline 2022-0 Yes TAKE HALF Un augustine 100 mg 5-01 OF A ity of tablet 00:00: TABLET BY [place] [facility] DAILY X 1 Branch WEEK THEN TAKE 1 TABLET ONCE A DAY BY MOUTH traZODone 2022-0 Yes 50mg Take 1 Univer s 50 mg 4-27 tablet by ity of tablet 00:00: mouth at [place] [address] bedtime. Medical Branch metoprolol 3-0 Yes 25mg Take 1 Unive rs tartrate 25 4-27 tablet by ity of mg tablet 00:00: mouth in [facility] the Medical morning Branch and 1 tablet in the evening. glipiZIDE 5 2022-0 Yes 5mg Take 1 Univ ers mg [...] [place] 00 the Medical morning. Branch amLODIPine 3-0 Yes 10mg Take 1 Unive rs 10 mg 4-27 tablet by ity of tablet 00:00: mouth in [place] 00 the Medical morning. Branch traZODone 2023-0 Yes 50mg Take 1 Univer s 50 mg 4-27 tablet by ity of tablet 00:00: mouth at [place] [address] bedtime. Medical Branch metoprolol 2023-0 Yes 25mg Take 1 Unive rs tartrate 25 4-27 tablet by ity of mg tablet 00:00: mouth in [facility] 00 the Medical morning Branch and 1 tablet in the evening. glipiZIDE 5 2023-0 Yes 5mg Take 1 Univ ers mg tablet 4-27 tablet by ity o f 00:00: mouth in [place] 00 the Medical morning. Branch clopidogreL 2023-0 Yes 75mg Take 1 Univ ers 75 mg 4-27 tablet by ity of tablet 00:00: mouth in [place] the Medical morning. Branch atorvastati 2023-0 Yes [...] by ity of tablet 00:00: mouth at [place] [address] bedtime. Medical Branch metoprolol 2023-0 Yes 25mg Take 1 Unive rs tartrate 25 4-27 tablet by ity of mg tablet 00:00: mouth in [facility] the Medical morning Branch and 1 tablet [...] by ity of tablet 00:00: mouth at [place] [address] bedtime. Medical Branch metoprolol 2023-0 Yes 25mg Take 1 Unive rs tartrate 25 4-27 tablet by ity of mg tablet 00:00: mouth in [facility] 00 the Medical morning Branch and 1 [...] by ity of tablet 00:00: mouth at [place] [address] bedtime. Medical Branch metoprolol 2023-0 Yes 25mg Take 1 Unive rs tartrate 25 4-27 tablet by ity of mg tablet 00:00: mouth in [facility] 00 the Medical morning Branch and 1 [...] by ity of tablet 00:00: mouth at [place] [address] bedtime. Medical Branch metoprolol 2023-0 Yes 25mg Take 1 Unive rs tartrate 25 4-27 tablet by ity of mg tablet 00:00: mouth in [facility] 00 the Medical morning Branch and 1 [...] by ity of tablet 00:00: mouth at [place] [address] bedtime. Medical Branch metoprolol 2023-0 Yes 25mg Take 1 Unive rs tartrate 25 4-27 tablet by ity of mg tablet 00:00: mouth in [facility] 00 the Medical morning Branch and 1 [...] by ity of tablet 00:00: mouth at [place] [address] bedtime. Medical Branch metoprolol 2023-0 Yes 25mg Take 1 Unive rs tartrate 25 4-27 tablet by ity of mg tablet 00:00: mouth in [facility] 00 the Medical morning Branch and 1 tablet in the evening. glipiZIDE 5 2023-0 Yes 5mg Take 1 Univ ers mg tablet 4-27 tablet by ity o f 00:00: mouth in [place] the Medical morning. Branch clopidogreL 2023-0 Yes 75mg Take 1 Univ ers 75 mg 4-27 tablet by ity of tablet 00:00: mouth in [place] [address] the Medical morning. Branch atorvastati 2023-0 Yes 40mg Take 1 Univ ers n 40 mg 4-27 tablet by ity of tablet 00:00: mouth in [place] [address] the Medical morning. Branch amLODIPine 2023-0 Yes 10mg Take 1 Unive rs 10 mg 4-27 tablet by ity of tablet 00:00: mouth in [place] the Medical morning. Branch traZODone 2023-0 Yes 50mg Take 1 Univer s 50 mg 4-27 tablet by ity of tablet 00:00: mouth at [place] [address] bedtime. Medical Branch metoprolol 2023-0 Yes 25mg Take 1 Unive rs tartrate 25 4-27 tablet by ity of mg tablet 00:00: mouth in [facility] the Medical morning Branch and 1 tablet in the evening. glipiZIDE 5 2023-0 Yes 5mg Take 1 Univ ers mg tablet 4-27 tablet by ity o f 00:00: mouth in [place] the Medical morning. Branch clopidogreL 2023-0 Yes 75mg Take 1 Univ ers 75 mg 4-27 tablet by ity of tablet 00:00: mouth in [place] the Medical morning. Branch atorvastati 2023-0 Yes 40mg Take 1 Univ ers n 40 mg 4-27 tablet by ity of tablet 00:00: mouth in [place] 00 the Medical morning. Branch amLODIPine 2023-0 Yes 10mg Take 1 Unive rs 10 mg 4-27 tablet by ity of tablet 00:00: mouth in [place] [address] the Medical morning. Branch traZODone 2023-0 Yes 50mg Take 1 Univer s 50 mg 4-27 tablet by ity of tablet 00:00: mouth at [place] [address] bedtime. Medical Branch metoprolol 2023-0 Yes 25mg Take 1 Unive rs tartrate 25 4-27 tablet by ity of mg tablet 00:00: mouth in [facility] the Medical morning Branch and 1 tablet in the evening. glipiZIDE 5 2023-0 Yes 5mg Take 1 Univ ers mg tablet 4-27 tablet by ity o f 00:00: mouth in [place] the Medical morning. Branch clopidogreL 2023-0 Yes 75mg Take 1 Univ ers 75 mg 4-27 tablet by ity of tablet 00:00: mouth in [place] the Medical morning. Branch atorvastati 2023-0 Yes 40mg Take 1 Univ ers n 40 mg 4-27 tablet by ity of tablet 00:00: mouth in [place] [address] the Medical morning. Branch amLODIPine 2023-0 Yes 10mg Take 1 Unive rs 10 mg 4-27 tablet by ity of tablet 00:00: mouth in [place] the Medical morning. Branch traZODone 2023-0 Yes 50mg Take 1 Univer s 50 mg 4-27 tablet by ity of tablet 00:00: mouth at [place] [address] bedtime. Medical Branch metoprolol 2023-0 Yes 25mg Take 1 Unive rs tartrate 25 4-27 tablet by ity of mg tablet 00:00: mouth in [facility] the Medical morning Branch and 1 tablet in the evening. glipiZIDE 5 2023-0 Yes 5mg Take 1 Univ ers mg tablet 4-27 tablet by ity o f 00:00: mouth in [place] the Medical morning. Branch clopidogreL 2023-0 Yes 75mg Take 1 Univ ers 75 mg 4-27 tablet by ity of tablet 00:00: mouth in [place] the Medical morning. Branch atorvastati 2023-0 Yes 40mg Take 1 Univ ers n 40 mg 4-27 tablet by ity of tablet 00:00: mouth in [place] the Medical morning. Branch amLODIPine 2023-0 Yes 10mg Take 1 Unive rs 10 mg 4-27 tablet by ity of tablet 00:00: mouth in [place] [address] the Medical morning. Branch traZODone 2023-0 Yes 50mg Take 1 Univer s 50 mg 4-27 tablet by ity of tablet 00:00: mouth at [place] [address] bedtime. Medical Branch metoprolol 2023-0 Yes 25mg Take 1 Unive rs tartrate 25 4-27 tablet by ity of mg tablet 00:00: mouth in [facility] 00 the Medical morning Branch and 1 tablet in the evening. glipiZIDE 5 2023-0 Yes 5mg Take 1 Univ ers mg tablet 4-27 tablet by ity o f 00:00: mouth in [place] 00 the Medical morning. Branch clopidogreL 2023-0 Yes 75mg Take 1 Univ ers 75 mg 4-27 tablet by ity of tablet 00:00: mouth in [place] 00 the Medical morning. Branch atorvastati 2023-0 Yes 40mg Take 1 Univ ers n 40 mg 4-27 tablet by ity of tablet 00:00: mouth in [place] 00 the Medical morning. Branch amLODIPine 2023-0 Yes 10mg Take 1 Unive rs 10 mg 4-27 tablet by ity of tablet 00:00: mouth in [place] 00 the Medical morning. Branch buPROPion 2023-0 [...] 00:00: mouth in [place] tablet 00 the morning. Branch buPROPion 2023-0 Yes 150mg Take 1 Unive rs XL 150 mg 3-23 tablet by ity o f 24 hr 00:00: mouth in [place] tablet 00 the morning. Branch buPROPion 2023-0 Yes 150mg Take 1 Unive rs XL 150 mg 3-23 tablet by ity o f 24 hr 00:00: mouth in [place] tablet 00 the morning. Branch buPROPion 2023-0 Yes 150mg Take 1 Unive rs XL 150 mg 3-23 tablet by ity o f 24 hr 00:00: mouth in [place] tablet 00 the morning. Branch buPROPion 2023-0 Yes 150mg Take 1 Unive rs XL 150 mg 3-23 tablet by ity o f 24 hr 00:00: mouth in [place] tablet 00 the morning. Branch ACCU-CHEK 2023-0 Yes [id number] USE U nivers GUIDE TEST 1-25 DIRECTED. ity of STRIPS 00:00: TAKE [place] strip 00 GLUCOSE Medical 1-2 TIMES Branch DAILY ACCU-CHEK 2023-0 Yes [id number] USE U nivers GUIDE TEST 1-25 DIRECTED. ity of STRIPS 00:00: TAKE [place] strip 00 GLUCOSE Medical 1-2 TIMES Branch DAILY ACCU-CHEK 2023-0 Yes [id number] USE U nivers GUIDE TEST 1-25 DIRECTED. ity of STRIPS 00:00: TAKE [place] strip 00 GLUCOSE Medical 1-2 TIMES Branch DAILY ACCU-CHEK 2023-0 Yes [id number] USE U nivers GUIDE TEST 1-25 DIRECTED. ity of STRIPS 00:00: TAKE [place] strip 00 GLUCOSE Medical 1-2 TIMES Branch DAILY ACCU-CHEK 2023-0 Yes [id number] USE U nivers GUIDE TEST 1-25 DIRECTED. ity of STRIPS 00:00: TAKE [place] strip 00 GLUCOSE Medical 1-2 TIMES Branch DAILY ACCU-CHEK 2023-0 Yes [id number] USE U nivers GUIDE TEST 1-25 DIRECTED. ity of STRIPS 00:00: TAKE [place] strip 00 GLUCOSE Medical 1-2 TIMES Branch DAILY ACCU-CHEK 2023-0 Yes [id number] USE U nivers GUIDE TEST 1-25 DIRECTED. ity of STRIPS 00:00: TAKE [place] strip 00 GLUCOSE Medical 1-2 TIMES Branch DAILY ACCU-CHEK 2023-0 Yes [id number] USE U nivers GUIDE TEST 1-25 DIRECTED. ity of STRIPS 00:00: TAKE [place] strip 00 GLUCOSE Medical 1-2 TIMES Branch DAILY ACCU-CHEK 2023-0 Yes [id number] USE U nivers GUIDE TEST 1-25 DIRECTED. ity of STRIPS 00:00: TAKE [place] strip 00 GLUCOSE Medical 1-2 TIMES Branch DAILY ACCU-CHEK 2023-0 Yes [id number] USE U nivers GUIDE TEST 1-25 DIRECTED. ity of STRIPS 00:00: TAKE [place] strip 00 GLUCOSE Medical 1-2 TIMES Branch DAILY ACCU-CHEK 2023-0 Yes [id number] USE U nivers GUIDE TEST 1-25 DIRECTED. ity of STRIPS 00:00: TAKE [place] strip 00 GLUCOSE Medical 1-2 TIMES Branch DAILY ACCU-CHEK 2023-0 Yes [id number] USE U nivers GUIDE TEST 1-25 DIRECTED. ity of STRIPS 00:00: TAKE [place] strip 00 GLUCOSE Medical 1-2 TIMES Branch DAILY ACCU-CHEK 2023-0 Yes [id number] USE U nivers GUIDE TEST 1-25 DIRECTED. ity of STRIPS 00:00: TAKE [place] strip 00 GLUCOSE Medical 1-2 TIMES Branch DAILY ACCU-CHEK 2023-0 Yes [id number] USE U nivers GUIDE TEST 1-25 DIRECTED. ity of STRIPS 00:00: TAKE [place] strip 00 GLUCOSE Medical 1-2 TIMES Branch DAILY ACCU-CHEK 2023-0 Yes [id number] USE U nivers GUIDE TEST 1-25 DIRECTED. ity of STRIPS 00:00: TAKE [place] strip 00 GLUCOSE Medical 1-2 TIMES Branch DAILY ACCU-CHEK 2023-0 Yes [id number] USE U nivers GUIDE TEST 1-25 DIRECTED. ity of STRIPS 00:00: TAKE [place] strip 00 GLUCOSE Medical 1-2 TIMES Branch DAILY ACCU-CHEK 2023-0 Yes [id number] USE U nivers GUIDE TEST 1-25 DIRECTED. ity of STRIPS 00:00: TAKE [place] strip 00 GLUCOSE Medical 1-2 TIMES Branch DAILY ACCU-CHEK 2023-0 Yes [id number] USE U nivers GUIDE TEST 1-25 DIRECTED. ity of STRIPS 00:00: TAKE [place] strip 00 GLUCOSE Medical 1-2 TIMES Branch DAILY ACCU-CHEK 2023-0 Yes [id number] USE U nivers GUIDE TEST 1-25 DIRECTED. ity of STRIPS 00:00: TAKE [place] strip 00 GLUCOSE Medical 1-2 TIMES Branch DAILY ACCU-CHEK 2023-0 Yes [id number] USE U nivers GUIDE TEST 1-25 DIRECTED. ity of STRIPS 00:00: TAKE [place] strip 00 GLUCOSE Medical 1-2 TIMES Branch DAILY ACCU-CHEK 2023-0 Yes [id number] USE U nivers GUIDE TEST 1-25 DIRECTED. ity of STRIPS 00:00: TAKE [place] strip 00 GLUCOSE Medical 1-2 TIMES Branch DAILY ACCU-CHEK 2023-0 Yes [id number] USE U nivers GUIDE TEST 1-25 DIRECTED. ity of STRIPS 00:00: TAKE [place] strip 00 GLUCOSE Medical 1-2 TIMES Branch DAILY ACCU-CHEK 2023-0 Yes [id number] USE U nivers GUIDE TEST 1-25 DIRECTED. ity of STRIPS 00:00: TAKE [place] strip 00 GLUCOSE Medical 1-2 TIMES Branch DAILY ACCU-CHEK 2023-0 Yes [id number] USE U nivers GUIDE TEST 1-25 DIRECTED. ity of STRIPS 00:00: TAKE [place] strip 00 GLUCOSE Medical 1-2 TIMES Branch DAILY ACCU-CHEK 2023-0 Yes [id number] USE U nivers GUIDE TEST 1-25 DIRECTED. ity of STRIPS 00:00: TAKE [place] strip 00 GLUCOSE Medical 1-2 TIMES Branch DAILY blood sugar 2021-09 Yes [id number] Use as [facility] diagnostic 2-09 directed. ity of (ACCU-CHEK 00:00: Take [place] GUIDE TEST 00 glucose Medica l STRIPS) 1-2 times Branch strip daily glimepiride 2021-09 Yes [id number] 1mg Take 1 [facility] 1 mg tablet 2- tablet by ity of 00:00: mouth [place] 00 daily with Medical breakfast. Branch blood sugar 2021-09 Yes [id number] Use as [facility] diagnostic 2-09 directed. ity of (ACCU-CHEK 00:00: Take [place] GUIDE TEST 00 glucose Medica l STRIPS) 1-2 times Branch strip daily glimepiride 2021-09 Yes [id number] 1mg Take 1 [facility] 1 mg tablet 2-09 tablet by ity of 00:00: mouth [place] 00 daily with Medical breakfast. Branch blood sugar 2021-09 Yes [id number] Use as [facility] diagnostic 2-09 directed. ity of (ACCU-CHEK 00:00: Take [place] GUIDE TEST 00 glucose Medica l STRIPS) 1-2 times Branch strip daily glimepiride 2021-09 Yes [id number] 1mg Take 1 [facility] 1 mg tablet 2-09 tablet by ity of 00:00: mouth [place] 00 daily with Medical breakfast. Branch blood sugar 2021-09 Yes [id number] Use as [facility] diagnostic 2-09 directed. ity of (ACCU-CHEK 00:00: Take [place] GUIDE TEST 00 glucose Medica l STRIPS) 1-2 times Branch strip daily glimepiride 2021-09 Yes [id number] 1mg Take 1 [facility] 1 mg tablet 2-09 tablet by ity of 00:00: mouth [place] 00 daily with Medical breakfast. Branch blood sugar 2021-09 Yes [id number] Use as [facility] diagnostic 2-09 directed. ity of (ACCU-CHEK 00:00: Take [place] GUIDE TEST 00 glucose Medica l STRIPS) 1-2 times Branch strip daily glimepiride 2021-09 Yes [id number] 1mg Take 1 [facility] 1 mg tablet 2-09 tablet by ity of 00:00: mouth [place] 00 daily with Medical breakfast. Branch blood sugar 2021-09 Yes [id number] Use as [facility] diagnostic 2-09 directed. ity of (ACCU-CHEK 00:00: Take [place] GUIDE TEST 00 glucose Medica l STRIPS) 1-2 times Branch strip daily glimepiride 2021-09 Yes [id number] 1mg Take 1 [facility] 1 mg tablet 2-09 tablet by ity of 00:00: mouth [place] 00 daily with Medical breakfast. Branch blood sugar 2021-09 Yes [id number] Use as [facility] diagnostic 2-09 directed. ity of (ACCU-CHEK 00:00: Take [place] GUIDE TEST 00 glucose Medica l STRIPS) 1-2 times Branch strip daily glimepiride 2021-09 Yes [id number] 1mg Take 1 [facility] 1 mg tablet 2-09 tablet by ity of 00:00: mouth [place] 00 daily with Medical breakfast. Branch blood sugar 2021-09 Yes [id number] Use as [facility] diagnostic 2-09 directed. ity of (ACCU-CHEK 00:00: Take [place] GUIDE TEST 00 glucose Medica l STRIPS) 1-2 times Branch strip daily glimepiride 2021-09 Yes [id number] 1mg Take 1 [facility] 1 mg tablet 2-09 tablet by ity of 00:00: mouth [place] 00 daily with Medical breakfast. Branch glimepiride 2021-09 Yes [id number] 1mg Take 1 [facility] 1 mg tablet 2-09 tablet by ity of 00:00: mouth [place] 00 daily with Medical breakfast. Branch glimepiride 2021-09 Yes [id number] 1mg Take 1 [facility] 1 mg tablet 2-09 tablet by ity of 00:00: mouth [place] 00 daily with Medical breakfast. Branch glimepiride 2021-09 Yes [id number] 1mg Take 1 [facility] 1 mg tablet 2-09 tablet by ity of 00:00: mouth [place] 00 daily with Medical breakfast. [place] glimepiride 2021-09 Yes [id number] 1mg Take 1 [facility] 1 mg tablet 2-09 tablet by ity of 00:00: mouth [place] 00 daily with Medical breakfast. [place] glimepiride 2021-09 Yes [id number] 1mg Take 1 [facility] 1 mg tablet 2-09 tablet by ity of 00:00: mouth [place] 00 daily with Medical breakfast. [place] glimepiride 2021-09 Yes [id number] 1mg Take 1 [facility] 1 mg tablet 2-09 tablet by ity of 00:00: mouth [place] 00 daily with Medical breakfast. [place] glimepiride 2021-09 Yes [id number] 1mg Take 1 [facility] 1 mg tablet 2-09 tablet by ity of 00:00: mouth [place] 00 daily with Medical breakfast. [place] glimepiride 2021-09 Yes [id number] 1mg Take 1 [facility] 1 mg tablet 2-09 tablet by ity of 00:00: mouth [place] 00 daily with Medical breakfast. Branch glimepiride 2021-09 Yes [id number] 1mg Take 1 [facility] 1 mg tablet 2-09 tablet by ity of 00:00: mouth [place] 00 daily with Medical breakfast. [place] glimepiride 2021-09 Yes [id number] 1mg Take 1 [facility] 1 mg tablet 2-09 tablet by ity of 00:00: mouth [place] 00 daily with Medical breakfast. [place] glimepiride 2021-09 Yes [id number] 1mg Take 1 [facility] 1 mg tablet 2-09 tablet by ity of 00:00: mouth [place] 00 daily with Medical breakfast. [place] glimepiride 2021-09 Yes [id number] 1mg Take 1 [facility] 1 mg tablet 2-09 tablet by ity of 00:00: mouth [place] 00 daily with Medical breakfast. [place] glimepiride 2021-09 Yes [id number] 1mg Take 1 [facility] 1 mg tablet 2-09 tablet by ity of 00:00: mouth [place] 00 daily with Medical breakfast. [place] glimepiride 2021-09- No [id number] 1mg Take 1 [facility] 1 mg tablet 2- tablet by it y of 00:00: 00:00 mouth [place] 00 :00 daily with Medical breakfast. [place] glimepiride 2021-09- No [id number] 1mg Take 1 [facility] 1 mg tablet 2- tablet by it y of 00:00: 00:00 mouth [place] 00 :00 daily with Medical breakfast. [place] blood sugar 2021-09- No [id number] Use as [facility] diagnostic 11-04 directed. ity of (ACCU-CHEK 00:00: 00:00 Take [place] GUIDE TEST 00 :00 glucose Medica l STRIPS) 1-2 times Branch strip daily aspirin 2021-09- No [id number] 81mg Take 1 [facility] mg chewable 2-01 05- tablet by it y of tablet 00:00: 05:59 mouth in [place] 00 :00 the Medical morning. [place] aspirin 2021-09- No [id number] 81mg Take 1 [facility] mg chewable 2-04 12-05 tablet by it y of tablet 00:00: 05:59 mouth in [place] 00 :00 the Medical morning. [place] aspirin 81 2021-09- No [id number] 81mg Take 1 [facility] mg chewable 2-04 12-05 tablet by it y of tablet 00:00: 05:59 mouth in [place] 00 :00 the Medical morning. [place] aspirin 81 2021-09- No [id number] 81mg Take 1 [facility] mg chewable 2-01 05-05 tablet by it y of tablet 00:00: 05:59 mouth in [place] 00 :00 the Medical morning. [place] aspirin 81 2021-09- No [id number] 81mg Take 1 [facility] mg chewable 2-04 12-05 tablet by it y of tablet 00:00: 05:59 mouth in [place] 00 :00 the Medical morning. Branch aspirin 81 2021-09- No [id number] 81mg Take 1 [facility] mg chewable 2-04 12-05 tablet by it y of tablet 00:00: 05:59 mouth in [place] 00 :00 the Medical morning. Branch aspirin 81 2021-2022- No [id number] 81mg Take 1 [facility] mg chewable 2-04 12-05 tablet by it y of tablet 00:00: 05:59 mouth in [place] 00 :00 the Medical morning. Branch aspirin 81 2021-09- No [id number] 81mg Take 1 [facility] mg chewable 2-04 12-05 tablet by it y of tablet 00:00: 05:59 mouth in [place] 00 :00 the Medical morning. Branch aspirin 81 2021-09- No [id number] 81mg Take 1 [facility] mg chewable 2-04 12-05 tablet by it y of tablet 00:00: 05:59 mouth in [place] 00 :00 the Medical morning. Branch aspirin 81 2021-09- No [id number] 81mg Take 1 [facility] mg chewable 2-04 12-05 tablet by it y of tablet 00:00: 05:59 mouth in [place] 00 :00 the Medical morning. Branch aspirin 81 2021-09- No [id number] 81mg Take 1 [facility] mg chewable 2-04 12-05 tablet by it y of tablet 00:00: 05:59 mouth in [place] 00 :00 the Medical morning. Branch aspirin 81 2021-09- No [id number] 81mg Take 1 [facility] mg chewable 2-04 12-05 tablet by it y of tablet 00:00: 05:59 mouth in [place] 00 :00 the Medical morning. Branch aspirin 81 2021-2022- No [id number] 81mg Take 1 [facility] mg chewable 2-04 12-05 tablet by it y of tablet 00:00: 05:59 mouth in [place] 00 :00 the Medical morning. Branch aspirin 81 2021-09- No [id number] 81mg Take 1 [facility] mg chewable 2-04 12-05 tablet by it y of tablet 00:00: 05:59 mouth in [place] 00 :00 the Medical morning. Branch aspirin 81 2021-09- No [id number] 81mg Take 1 [facility] mg chewable 2-04 12-05 tablet by it y of tablet 00:00: 05:59 mouth in [place] 00 :00 the Medical morning. Branch aspirin 81 2021-2022- No [id number] 81mg Take 1 [facility] mg chewable 2-04 12-05 tablet by it y of tablet 00:00: 05:59 mouth in [place] 00 :00 the Medical morning. Branch aspirin 81 2021-2022- No [id number] 81mg Take 1 [facility] mg chewable 2-04 12-05 tablet by it y of tablet 00:00: 05:59 mouth in [place] 00 :00 the Medical morning. Branch aspirin 81 2021-2022- No [id number] 81mg Take 1 [facility] mg chewable 2-04 12-05 tablet by it y of tablet 00:00: 05:59 mouth in [place] 00 :00 the Medical morning. Branch aspirin 81 2021-09- No [id number] 81mg Take 1 [facility] mg chewable 2-04 12-05 tablet by it y of tablet 00:00: 05:59 mouth in [place] 00 :00 the Medical morning. Branch aspirin 81 2021-09- No [id number] 81mg Take 1 [facility] mg chewable 2-04 12-05 tablet by it y of tablet 00:00: 05:59 mouth in [place] 00 :00 the Medical morning. Branch aspirin 81 2021-09- No [id number] 81mg Take 1 [facility] mg chewable 2-04 12-05 tablet by it y of tablet 00:00: 05:59 mouth in [place] 00 :00 the Medical morning. Branch aspirin 81 2021-09- No [id number] 81mg Take 1 [facility] mg chewable 2-04 12-05 tablet by it y of tablet 00:00: 05:59 mouth in [place] 00 :00 the Medical morning. Branch aspirin 81 2021-2022- No [id number] 81mg Take 1 [facility] mg chewable 2-04 12-05 tablet by it y of tablet 00:00: 05:59 mouth in [place] 00 :00 the Medical morning. Branch aspirin 81 2021-2022- No [id number] 81mg Take 1 [facility] mg chewable 2-04 12-05 tablet by it y of tablet 00:00: 05:59 mouth in [place] 00 :00 the Medical morning. Branch aspirin 81 2021-09- No [id number] 81mg Take 1 [facility] mg chewable 2-04 12-05 tablet by it y of tablet 00:00: 05:59 mouth in [place] 00 :00 the Medical morning. Branch aspirin 81 2021-2022- No [id number] 81mg Take 1 [facility] mg chewable 2-04 12-05 tablet by it y of tablet 00:00: 05:59 mouth in [place] 00 :00 the Medical morning. Branch aspirin 81 2021-2022- No [id number] 81mg Take 1 [facility] mg chewable 2-04 12-05 tablet by it y of tablet 00:00: 05:59 mouth in [place] 00 :00 the Medical morning. Branch aspirin 81 2021-2022- No [id number] 81mg Take 1 [facility] mg chewable 2-04 12-05 tablet by it y of tablet 00:00: 05:59 mouth in [place] 00 :00 the Medical morning. Branch aspirin 81 2021-09- No [id number] 81mg Take 1 [facility] mg chewable 2-04 12-05 tablet by it y of tablet 00:00: 05:59 mouth in [place] 00 :00 the Medical morning. Branch aspirin 81 2021-2022- No [id number] 81mg Take 1 [facility] mg chewable 2-04 12-05 tablet by it y of tablet 00:00: 05:59 mouth in [place] 00 :00 the Medical morning. Branch aspirin 81 2021-2022- No [id number] 81mg Take 1 [facility] mg chewable 2-04 12-05 tablet by it y of tablet 00:00: 05:59 mouth in [place] 00 :00 the Medical morning. Branch aspirin 81 2021-09- No [id number] 81mg Take 1 [facility] mg chewable 2-04 12-05 tablet by it y of tablet 00:00: 05:59 mouth in [place] 00 :00 the Medical morning. Branch aspirin 81 2021-2022- No [id number] 81mg Take 1 [facility] mg chewable 2-04 12-05 tablet by it y of tablet 00:00: 05:59 mouth in [place] 00 :00 the Medical morning. Branch aspirin 81 2021-2022- No [id number] 81mg Take 1 [facility] mg chewable 2-04 12-05 tablet by it y of tablet 00:00: 05:59 mouth in [place] 00 :00 the Medical morning. Branch aspirin 81 2021-09 No [id number] 81mg Take 1 [facility] mg chewable 10-30 [...] at 1700, Until Discontinu ed, Routine magnesium 2021-09 No 4g 4 g, IV Univ ers sulfate in 10-29 Piggyback, it y of water 4 12:30: 16:53 at 25 [place] gram/50 mL 00 :00 mL/hr Medical (8 %) IV Administer Branc h Piggyback 4 over 120 g Minutes, ONCE, 1 dose, On 08/28/22 at 0630, Routine magnesium 2021-09 No 4g 4 g, IV Univ ers [...] No 10mg 10 mg, Univ ers (NORVASC) 10-29- Oral, ity of tablet 10 11:15: 22:49 Q24H, [place] mg 00 :38 First dose Medical (after Branch last modificati on) on 08/28/22 at 0515, Until Discontinu ed, Routine atorvastati 2021-09 Yes 80mg 80 mg, Univ ers n (LIPITOR) 2- Oral, QHS, it y of tablet 80 03:00: First dose [place] mg 00 on Fri Medical 08/27/22 at Branch 2100, Until Discontinu ed, Routine atorvastati 2021-09 80mg 80 mg, Uni vers n (LIPITOR) 10-29- Oral, QHS, i ty of tablet 80 03:00: 22:49 First dose [place] mg 00 :38 on Fri Medical 08/27/22 at Branch 2100, Until Discontinu ed, Routine nitroglycer 2021-[id number] 1 [facility] in 0.4 mg 2-03 tablet ity of sublingual 00:00: under the [place] tablet 00 tongue Medical every 5 Branch (five) minutes as needed for Chest pain. Blood-Gluco 2021-09 Yes [id number] Use as [facility] se Meter 2-03 directed ity of (ACCU-CHEK 00:00: [place] GUIDE 00 Medical GLUCOSE Branch METER[place] [facility] [place] 2021-09 Yes [id number] Use as [facility] diagnostic 2-03 directed ity o f (ACCU-CHEK 00:00: [place] GUIDE TEST 00 Medical STRIPS) Branch strip lancets 33 2021-09 Yes [id number] Use as [facility] gauge [facility] [place] 2-03 directed ity o f 00:00: [place] 00 Medical Branch nitroglycer 2021-[id number] 1 Univers in 0.4 mg 2-03 tablet ity of sublingual 00:00: under the [place] tablet 00 tongue Medical every 5 Branch (five) minutes as needed for Chest pain. Blood-Gluco 2021-09 Yes [id number] Use as [facility] se Meter 2-03 directed ity of (ACCU-CHEK 00:00: [place] GUIDE 00 Medical GLUCOSE Branch METER[place] [facility] [place] 2021-09 Yes [id number] Use as [facility] diagnostic 2-03 directed ity o f (ACCU-CHEK 00:00: [place] GUIDE TEST 00 Medical STRIPS) Branch strip lancets 2021-09 Yes [id number] Use as U nivers gauge Misc 2-03 directed ity o f 00:00: [place] 00 Medical Branch nitroglycer 2021-[id number] 1 [facility] in 0.4 mg 2-03 tablet ity of sublingual 00:00: under the [place] tablet 00 tongue Medical every 5 Branch (five) minutes as needed for Chest pain. Blood-Gluco 2021-09 Yes [id number] Use as [facility] se Meter 2-03 directed ity of (ACCU-CHEK 00:00: [place] GUIDE 00 Medical GLUCOSE Branch METER) Misc lancets 2021-09 Yes [id number] Use as U nivers gauge Misc 2-03 directed ity o f 00:00: [place] 00 Medical Branch nitroglycer 2021-[id number] 1 [facility] in 0.4 mg 2-03 tablet ity of sublingual 00:00: under the [place] tablet 00 tongue Medical every 5 Branch (five) minutes as needed for Chest pain. Blood-Gluco 2021-09 Yes [id number] Use as [facility] se Meter 2-03 directed ity of (ACCU-CHEK 00:00: [place] GUIDE 00 Medical GLUCOSE Branch METER) Misc lancets 2021-09 Yes [id number] Use as U nivers gauge Misc 2-03 directed ity o f 00:00: [place] 00 Medical Branch nitroglycer 2021-[id number] 1 [facility] in 0.4 mg 2-03 tablet ity of sublingual 00:00: under the [place] tablet 00 tongue Medical every 5 Branch (five) minutes as needed for Chest pain. Blood-Gluco 2021-09 Yes [id number] Use as [facility] se Meter 2-03 directed ity of (ACCU-CHEK 00:00: [place] GUIDE 00 Medical GLUCOSE Branch METER) Misc lancets 2021-09 Yes [id number] Use as U nivers gauge Misc 2-03 directed ity o f 00:00: [place] 00 Medical Branch nitroglycer 2021-[id number] 1 [facility] in 0.4 mg 2-03 tablet ity of sublingual 00:00: under the [place] tablet 00 tongue Medical every 5 Branch (five) minutes as needed for Chest pain. Blood-Gluco 2021-09 Yes [id number] Use as [facility] se Meter 2-03 directed ity of (ACCU-CHEK 00:00: [place] GUIDE 00 Medical GLUCOSE Branch METER) Misc lancets 2021-09 Yes [id number] Use as U nivers gauge Misc 2-03 directed ity o f 00:00: [place] 00 Medical Branch nitroglycer 2021-[id number] 1 [facility] in 0.4 mg 2-03 tablet ity of sublingual 00:00: under the [place] tablet 00 tongue Medical every 5 Branch (five) minutes as needed for Chest pain. Blood-Gluco 2021-09 Yes [id number] Use as [facility] se Meter 2-03 directed ity of (ACCU-CHEK 00:00: [place] GUIDE 00 Medical GLUCOSE Branch METER) Misc lancets 2021-09 Yes [id number] Use as U nivers gauge Misc 2-03 directed ity o f 00:00: [place] 00 Medical Branch nitroglycer 2021-[id number] 1 [facility] in 0.4 mg 2-03 tablet ity of sublingual 00:00: under the [place] tablet 00 tongue Medical every 5 Branch (five) minutes as needed for Chest pain. Blood-Gluco 2021-09 Yes [id number] Use as [facility] se Meter 2-03 directed ity of (ACCU-CHEK 00:00: [place] GUIDE 00 Medical GLUCOSE Branch METER) Misc lancets 2021-09 Yes [id number] Use as U nivers gauge Misc 2-03 directed ity o f 00:00: [place] 00 Medical Branch nitroglycer 2021-[id number] 1 [facility] in 0.4 mg 2-03 tablet ity of sublingual 00:00: under the [place] tablet 00 tongue Medical every 5 Branch (five) minutes as needed for Chest pain. Blood-Gluco 2021-09 Yes [id number] Use as [facility] se Meter 2-03 directed ity of (ACCU-CHEK 00:00: [place] GUIDE 00 Medical GLUCOSE Branch METER) Misc lancets 2021-09 Yes [id number] Use as U nivers gauge Misc 2-03 directed ity o f 00:00: [place] 00 Medical Branch nitroglycer 2021-[id number] 1 [facility] in 0.4 mg 2-03 tablet ity of sublingual 00:00: under the [place] tablet 00 tongue Medical every 5 Branch (five) minutes as needed for Chest pain. Blood-Gluco 2021-09 Yes [id number] Use as [facility] se Meter 2-03 directed ity of (ACCU-CHEK 00:00: [place] GUIDE 00 Medical GLUCOSE Branch METER) Misc lancets 2021-09 Yes [id number] Use as U nivers gauge Misc 2-03 directed ity o f 00:00: [place] 00 Medical Branch nitroglycer 2021-[id number] 1 [facility] in 0.4 mg 2-03 tablet ity of sublingual 00:00: under the [place] tablet 00 tongue Medical every 5 Branch (five) minutes as needed for Chest pain. Blood-Gluco 2021-09 Yes [id number] Use as [facility] se Meter 2-03 directed ity of (ACCU-CHEK 00:00: [place] GUIDE 00 Medical GLUCOSE Branch METER) Misc lancets 2021-09 Yes [id number] Use as U nivers gauge Misc 2-03 directed ity o f 00:00: [place] 00 Medical Branch nitroglycer 2021-[id number] 1 [facility] in 0.4 mg 2-03 tablet ity of sublingual 00:00: under the [place] tablet 00 tongue Medical every 5 Branch (five) minutes as needed for Chest pain. Blood-Gluco 2021-09 Yes [id number] Use as [facility] se Meter 2-03 directed ity of (ACCU-CHEK 00:00: [place] GUIDE 00 Medical GLUCOSE Branch METER) Misc lancets 2021-09 Yes [id number] Use as U nivers gauge Misc 2-03 directed ity o f 00:00: [place] 00 Medical Branch nitroglycer 2021-[id number] 1 Univers in 0.4 mg 2-03 tablet ity of sublingual 00:00: under the [place] tablet 00 tongue Medical every 5 Branch (five) minutes as needed for Chest pain. Blood-Gluco 2021-09 Yes [id number] Use as [facility] se Meter 2-03 directed ity of (ACCU-CHEK 00:00: [place] GUIDE 00 Medical GLUCOSE Branch METER) Misc lancets 33 2-1 Yes [id number] Use as U nivers gauge Misc 2-03 directed ity o f 00:00: [place] 00 Medical Branch nitroglycer 2021-[id number] 1 Univers in 0.4 mg 2-03 tablet ity of sublingual 00:00: under the [place] tablet 00 tongue Medical every 5 Branch (five) minutes as needed for Chest pain. Blood-Gluco 2021-09 Yes [id number] Use as [facility] se Meter 2-03 directed ity of (ACCU-CHEK 00:00: [place] GUIDE 00 Medical GLUCOSE Branch METER) Misc lancets 2021-09 Yes [id number] Use as U nivers gauge Misc 2-03 directed ity o f 00:00: [place] 00 Medical Branch nitroglycer 2021-[id number] 1 Univers in 0.4 mg 2-03 tablet ity of sublingual 00:00: under the [place] tablet 00 tongue Medical every 5 Branch (five) minutes as needed for Chest pain. Blood-Gluco 2021-09 Yes [id number] Use as [facility] se Meter 2-03 directed ity of (ACCU-CHEK 00:00: [place] GUIDE 00 Medical GLUCOSE Branch METER) Misc lancets 2021-09 Yes [id number] Use as U nivers gauge Misc 2-03 directed ity o f 00:00: [place] 00 Medical Branch nitroglycer 2021-[id number] 1 [facility] in 0.4 mg 2-03 tablet ity of sublingual 00:00: under the [place] tablet 00 tongue Medical every 5 Branch (five) minutes as needed for Chest pain. Blood-Gluco 2021-09 Yes [id number] Use as [facility] se Meter 2-03 directed ity of (ACCU-CHEK 00:00: [place] GUIDE 00 Medical GLUCOSE Branch METER) Misc lancets 2021-09 Yes [id number] Use as U nivers gauge Misc 2-03 directed ity o f 00:00: [place] 00 Medical Branch nitroglycer 2021-[id number] 1 Univers in 0.4 mg 2-03 tablet ity of sublingual 00:00: under the [place] tablet 00 tongue Medical every 5 Branch (five) minutes as needed for Chest pain. Blood-Gluco 2021-09 Yes [id number] Use as Univers se Meter 2-03 directed ity of (ACCU-CHEK 00:00: [place] GUIDE 00 Medical GLUCOSE Branch METER) Misc lancets 2021-09 Yes [id number] Use as U nivers gauge Misc 2-03 directed ity o f 00:00: [place] 00 Medical Branch nitroglycer 2021-[id number] 1 Univers in 0.4 mg 2-03 tablet ity of sublingual 00:00: under the [place] tablet 00 tongue Medical every 5 Branch (five) minutes as needed for Chest pain. Blood-Gluco 2021-09 Yes [id number] Use as Univers se Meter 2-03 directed ity of (ACCU-CHEK 00:00: [place] GUIDE 00 Medical GLUCOSE Branch METER) Misc lancets 2021-09 Yes [id number] Use as U nivers gauge Misc 2-03 directed ity o f 00:00: [place] Medical Branch nitroglycer 2021-[id number] 1 Univers in 0.4 mg 2-03 tablet ity of sublingual 00:00: under the [place] tablet 00 tongue Medical every 5 Branch (five) minutes as needed for Chest pain. Blood-Gluco 2021-09 Yes [id number] Use as Univers se Meter 2-03 directed ity of (ACCU-CHEK 00:00: [place] GUIDE 00 Medical GLUCOSE Branch METER) Misc lancets 2021-09 Yes [id number] Use as U nivers gauge Misc 2-03 directed ity o f 00:00: [place] Medical Branch nitroglycer 2021-[id number] 1 Univers in 0.4 mg 2-03 tablet ity of sublingual 00:00: under the [place] tablet 00 tongue Medical every 5 Branch (five) minutes as needed for Chest pain. Blood-Gluco 2021-09 Yes [id number] Use as Univers se Meter 2-03 directed ity of (ACCU-CHEK 00:00: [place] GUIDE 00 Medical GLUCOSE Branch METER) Misc lancets 2021-09 Yes [id number] Use as U nivers gauge Misc 2-03 directed ity o f 00:00: [place] 00 Medical Branch nitroglycer 2021-[id number] 1 [facility] in 0.4 mg 2-03 tablet ity of sublingual 00:00: under the [place] tablet 00 tongue Medical every 5 Branch (five) minutes as needed for Chest pain. Blood-Gluco 2021-09 Yes [id number] Use as Univers se Meter 2-03 directed ity of (ACCU-CHEK 00:00: [place] GUIDE 00 Medical GLUCOSE Branch METER) Misc lancets 2021-09 Yes [id number] Use as U nivers gauge Misc 2-03 directed ity o f 00:00: [place] 00 Medical Branch nitroglycer 2021-[id number] 1 [facility] in 0.4 mg 2-03 tablet ity of sublingual 00:00: under the [place] tablet 00 tongue Medical every 5 Branch (five) minutes as needed for Chest pain. Blood-Gluco 2021-09 Yes [id number] Use as Univers se Meter 2-03 directed ity of (ACCU-CHEK 00:00: [place] GUIDE 00 Medical GLUCOSE Branch METER) Misc lancets 2021-09 Yes [id number] Use as U nivers gauge Misc 2-03 directed ity o f 00:00: [place] 00 Medical Branch nitroglycer 2021-[id number] 1 [facility] in 0.4 mg 2-03 tablet ity of sublingual 00:00: under the [place] tablet 00 tongue Medical every 5 Branch (five) minutes as needed for Chest pain. Blood-Gluco 2021-09 Yes [id number] Use as Univers se Meter 2-03 directed ity of (ACCU-CHEK 00:00: [place] GUIDE 00 Medical GLUCOSE Branch METER) Misc lancets 2021-09 Yes [id number] Use as U nivers gauge Misc 2-03 directed ity o f 00:00: [place] 00 Medical Branch nitroglycer 2021-[id number] 1 [facility] in 0.4 mg 2-03 tablet ity of sublingual 00:00: under the [place] tablet 00 tongue Medical every 5 Branch (five) minutes as needed for Chest pain. Blood-Gluco 2021-09 Yes [id number] Use as Univers se Meter 2-03 directed ity of (ACCU-CHEK 00:00: [place] GUIDE 00 Medical GLUCOSE Branch METER) Misc lancets 2021-09 Yes [id number] Use as U nivers gauge Misc 2-03 directed ity o f 00:00: [place] 00 Medical Branch nitroglycer 2021-[id number] 1 [facility] in 0.4 mg 2-03 tablet ity of sublingual 00:00: under the [place] tablet 00 tongue Medical every 5 Branch (five) minutes as needed for Chest pain. Blood-Gluco 2021-09 Yes [id number] Use as Univers se Meter 2-03 directed ity of (ACCU-CHEK 00:00: [place] GUIDE 00 Medical GLUCOSE Branch METER) Misc lancets 2021-09 Yes [id number] Use as U nivers gauge Misc 2-03 directed ity o f 00:00: [place] 00 Medical Branch nitroglycer 2021-[id number] 1 [facility] in 0.4 mg 2-03 tablet ity of sublingual 00:00: under the [place] tablet 00 tongue Medical every 5 Branch (five) minutes as needed for Chest pain. Blood-Gluco 2021-09 Yes [id number] Use as Univers se Meter 2-03 directed ity of (ACCU-CHEK 00:00: [place] GUIDE 00 Medical GLUCOSE Branch METER) Misc lancets 2021-09 Yes [id number] Use as U nivers gauge Misc 2-03 directed ity o f 00:00: [place] 00 Medical Branch nitroglycer 2021-[id number] 1 [facility] in 0.4 mg 2-03 tablet ity of sublingual 00:00: under the [place] tablet 00 tongue Medical every 5 Branch (five) minutes as needed for Chest pain. Blood-Gluco 2021-09 Yes [id number] Use as Univers se Meter 2-03 directed ity of (ACCU-CHEK 00:00: [place] GUIDE 00 Medical GLUCOSE Branch METER) Misc lancets 33 2021-09 Yes [id number] Use as U nivers gauge Misc 2-03 directed ity o f 00:00: [place] 00 Medical Branch nitroglycer 2021-[id number] 1 [facility] in 0.4 mg 2-03 tablet ity of sublingual 00:00: under the [place] tablet 00 tongue Medical every 5 Branch (five) minutes as needed for Chest pain. Blood-Gluco 2021-09 Yes [id number] Use as Univers se Meter 2-03 directed ity of (ACCU-CHEK 00:00: [place] GUIDE 00 Medical GLUCOSE Branch METER) Misc lancets 2021-09 Yes [id number] Use as U nivers gauge Misc 2-03 directed ity o f 00:00: [place] 00 Medical Branch nitroglycer 2021-[id number] 1 [facility] in 0.4 mg 2-03 tablet ity of sublingual 00:00: under the [place] tablet 00 tongue Medical every 5 Branch (five) minutes as needed for Chest pain. Blood-Gluco 2021-09 Yes [id number] Use as Univers se Meter 2-03 directed ity of (ACCU-CHEK 00:00: [place] GUIDE 00 Medical GLUCOSE Branch METER) Misc lancets 2021-09 Yes [id number] Use as U nivers gauge Misc 2-03 directed ity o f 00:00: [place] 00 Medical Branch nitroglycer 2021-[id number] 1 [facility] in 0.4 mg 2-03 tablet ity of sublingual 00:00: under the [place] tablet 00 tongue Medical every 5 Branch (five) minutes as needed for Chest pain. Blood-Gluco 2021-09 Yes [id number] Use as Univers se Meter 2-03 directed ity of (ACCU-CHEK 00:00: [place] GUIDE 00 Medical GLUCOSE Branch METER) Misc lancets 2021-09 Yes [id number] Use as U nivers gauge Misc 2-03 directed ity o f 00:00: [place] 00 Medical Branch nitroglycer 2021-[id number] 1 Univers in 0.4 mg 2-03 tablet ity of sublingual 00:00: under the [place] tablet 00 tongue Medical every 5 Branch (five) minutes as needed for Chest pain. Blood-Gluco 2021-09 Yes [id number] Use as Univers se Meter 2-03 directed ity of (ACCU-CHEK 00:00: [place] GUIDE 00 Medical GLUCOSE Branch METER) Misc lancets 2021-09 Yes [id number] Use as U nivers gauge Misc 2-03 directed ity o f 00:00: [place] 00 Medical Branch nitroglycer 2021-[id number] 1 [facility] in 0.4 mg 2-03 tablet ity of sublingual 00:00: under the [place] tablet 00 tongue Medical every 5 Branch (five) minutes as needed for Chest pain. Blood-Gluco 2021-09 Yes [id number] Use as Univers se Meter 2-03 directed ity of (ACCU-CHEK 00:00: [place] GUIDE 00 Medical GLUCOSE Branch METER) Misc lancets 2021-09 Yes [id number] Use as U nivers gauge Misc 2-03 directed ity o f 00:00: [place] 00 Medical Branch nitroglycer 2021-[id number] 1 [facility] in 0.4 mg 2-03 tablet ity of sublingual 00:00: under the [place] tablet 00 tongue Medical every 5 Branch (five) minutes as needed for Chest pain. Blood-Gluco 2021-09 Yes [id number] Use as Univers se Meter 2-03 directed ity of (ACCU-CHEK 00:00: [place] GUIDE 00 Medical GLUCOSE Branch METER) Misc lancets 2021-09 Yes [id number] Use as U nivers gauge Misc 2-03 directed ity o f 00:00: [place] 00 Medical Branch nitroglycer 2021-[id number] 1 [facility] in 0.4 mg 2-03 tablet ity of sublingual 00:00: under the [place] tablet 00 tongue Medical every 5 Branch (five) minutes as needed for Chest pain. Blood-Gluco 2021-09 Yes [id number] Use as Univers se Meter 2-03 directed ity of (ACCU-CHEK 00:00: [place] GUIDE 00 Medical GLUCOSE Branch METER) Misc lancets 2021-09 Yes [id number] Use as U nivers gauge Misc 2-03 directed ity o f 00:00: [place] 00 Medical Branch nitroglycer 2021-[id number] 1 [facility] in 0.4 mg 2-03 tablet ity of sublingual 00:00: under the [place] tablet 00 tongue Medical every 5 Branch (five) minutes as needed for Chest pain. Blood-Gluco 2021-09 Yes [id number] Use as Univers se Meter 2-03 directed ity of (ACCU-CHEK 00:00: [place] GUIDE 00 Medical GLUCOSE Branch METER) Misc lancets 2021-09 Yes [id number] Use as U nivers gauge Misc 2-03 directed ity o f 00:00: [place] 00 Medical Branch amLODIPine 2021-09- No [id number] 10mg Take 1 Univers 10 mg 2-11 26-04 tablet by ity of tablet 00:00: 05:59 mouth in [place] 00 :00 the [facility] for 90 days. atorvastati 2021-09- No [id number] 80mg Take 1 Univers n 80 mg 2- 03-04 tablet by ity of tablet 00:00: 05:59 mouth at [place] 00 :00 bedtime Medical for 90 Branch days. carvediloL 2021-09- No [id number] 12.5mg Take 1 Univers 12.5 mg 2- 03-04 tablet by ity of tablet 00:00: 05:59 mouth in [place] 00 :00 the [facility] and 1 tablet in the evening. Take with meals. Do all this for 90 days. lisinopriL 2021-09- No [id number] 10mg Take 1 Univers 10 mg 2-11 26-04 tablet by ity of tablet 00:00: 05:59 mouth in [place] 00 :00 the [facility] for 90 days. amLODIPine 2021-09- No [id number] 10mg Take 1 Univers 10 mg 2-11 26-04 tablet by ity of tablet 00:00: 05:59 mouth in [place] 00 :00 the [facility] for 90 days. atorvastati 2021-09- No [id number] 80mg Take 1 Univers n 80 mg 2-11 26-04 tablet by ity of tablet 00:00: 05:59 [facility] [place] [facility]L 2021-09- No [id number] 12.5mg Take 1 Univers 12.5 mg 2-03 03-04 tablet by ity of tablet 00:00: 05:59 mouth in [place] 00 :00 the [facility] and 1 tablet in the evening. Take with meals. Do all this for 90 days. lisinopriL 2021-09- No [id number] 10mg Take 1 Univers 10 mg 2-03 03-04 tablet by ity of tablet 00:00: 05:59 mouth in [place] 00 :00 the [facility] for 90 days. amLODIPine 2021-09- No [id number] 10mg Take 1 Univers 10 mg 2-03 03-04 tablet by ity of tablet 00:00: 05:59 mouth in [place] 00 :00 the Medical morning Branch for 90 days. atorvastati 2021-09- No [id number] 80mg Take 1 Univers n 80 mg 2-11 26-04 tablet by ity of tablet 00:00: 05:59 mouth at [place] 00 :00 bedtime Medical for 90 Branch days. carvediloL 2021-09- No [id number] 12.5mg Take 1 Univers 12.5 mg 2-11 26-04 tablet by ity of tablet 00:00: 05:59 mouth in [place] 00 :00 the Medical morning Branch and 1 tablet in the evening. Take with meals. Do all this for 90 days. lisinopriL 2021-09- No [id number] 10mg Take 1 Univers 10 mg 2-11 26-04 tablet by ity of tablet 00:00: 05:59 mouth in [place] 00 :00 the [facility] morning [place] for 90 days. amLODIPine 2021-09- No [id number] 10mg Take 1 Univers 10 mg 2-11 26-04 tablet by ity of tablet 00:00: 05:59 mouth in [place] 00 :00 the [facility] morning [place] for 90 days. atorvastati 2021-09- No [id number] 80mg Take 1 Univers n 80 mg 10-29-04 tablet by ity of tablet 00:00: 05:59 mouth at [place] 00 :00 bedtime Medical for 90 Branch days. carvediloL 2021-09- No [id number] 12.5mg Take 1 Univers 12.5 mg 10-29-04 tablet by ity of tablet 00:00: 05:59 mouth in [place] 00 :00 the [facility] morning Branch and 1 tablet in the evening. Take with meals. Do all this for 90 days. lisinopriL 2021-09- No [id number] 10mg Take 1 Univers 10 mg 2- 03-04 tablet by ity of tablet 00:00: 05:59 mouth in [place] 00 :00 the [facility] morning [place] for 90 days. amLODIPine 2021-09- No [id number] 10mg Take 1 Univers 10 mg 2-11 26-04 tablet by ity of tablet 00:00: 05:59 mouth in [place] 00 :00 the [facility] for 90 days. atorvastati 2021-09- No [id number] 80mg Take 1 Univers n 80 mg 2-11 26-04 tablet by ity of tablet 00:00: 05:59 mouth at [place] 00 :00 bedtime [facility] for 90 Branch days. carvediloL 2021-09- No [id number] 12.5mg Take 1 Univers 12.5 mg 2-11 26-04 tablet by ity of tablet 00:00: 05:59 mouth in [place] 00 :00 the [facility] and 1 tablet in the evening. Take with meals. Do all this for 90 days. lisinopriL 2021-093- No [id number] 10mg Take 1 Univers 10 mg 2-11 26-04 tablet by ity of tablet 00:00: 05:59 mouth in [place] 00 :00 the [facility] for 90 days. amLODIPine 2021-09- No [id number] 10mg Take 1 Univers 10 mg 2-11 26-04 tablet by ity of tablet 00:00: 05:59 mouth in [place] 00 :00 the [facility] for 90 days. atorvastati 2021-09- No [id number] 80mg Take 1 Univers n 80 mg 2-04 tablet by ity of tablet 00:00: 05:59 mouth at [place] 00 :00 bedtime [facility] for 90 Branch days. carvediloL 2021-09- No [id number] 12.5mg Take 1 Univers 12.5 mg 2-04 tablet by ity of tablet 00:00: 05:59 mouth in [place] 00 :00 the [facility] and 1 tablet in the evening. Take with meals. Do all this for 90 days. lisinopriL 2021-093- No [id number] 10mg Take 1 Univers 10 mg 2-11 26-04 tablet by ity of tablet 00:00: 05:59 mouth in [place] 00 :00 the [facility] for 90 days. amLODIPine 2021-09- No [id number] 10mg Take 1 Univers 10 mg 2-03 03-04 tablet by ity of tablet 00:00: 05:59 mouth in [place] 00 :00 the [facility] for 90 days. atorvastati 2021-093- No [id number] 80mg Take 1 Univers n 80 mg 2-11 26-04 tablet by ity of tablet 00:00: 05:59 mouth at [place] 00 :00 bedtime [facility] for 90 Branch days. carvediloL 2021-09- No [id number] 12.5mg Take 1 Univers 12.5 mg 2-11 26-04 tablet by ity of tablet 00:00: 05:59 mouth in [place] 00 :00 the Medical morning Branch and 1 tablet in the evening. Take with meals. Do all this for 90 days. lisinopriL 2021-09- No [id number] 10mg Take 1 Univers 10 mg 10-29-04 tablet by ity of tablet 00:00: 05:59 mouth in [place] 00 :00 the [facility] morning [place] for 90 days. amLODIPine 2021-09- No [id number] 10mg Take 1 Univers 10 mg 2-11 26-04 tablet by ity of tablet 00:00: 05:59 mouth in [place] 00 :00 the [facility] for 90 days. atorvastati 2021-09- No [id number] 80mg Take 1 Univers n 80 mg 10-29-04 tablet by ity of tablet 00:00: 05:59 [facility] [place] [facility] carvediloL 2021-09- No [id number] 12.5mg Take 1 Univers 12.5 mg 10-29- tablet by ity of tablet 00:00: 05:59 mouth in [place] 00 :00 the [facility] morning [place] and 1 tablet in the evening. Take with meals. Do all this for 90 days. lisinopriL 2021-09- No [id number] 10mg Take 1 Univers 10 mg -11 26-04 tablet by ity of tablet 00:00: 05:59 mouth in [place] 00 :00 the [facility] for 90 days. amLODIPine 2021-09- No [id number] 10mg Take 1 Univers 10 mg 2-11 26-04 tablet by ity of tablet 00:00: 05:59 mouth in [place] 00 :00 the [facility] for 90 days. atorvastati 2021-09- No [id number] 80mg Take 1 Univers n 80 mg 2-11 26-04 tablet by ity of tablet 00:00: 05:59 mouth at [place] 00 :00 bedtime Medical for 90 Branch days. carvediloL 2021-09- No [id number] 12.5mg Take 1 Univers 12.5 mg 2-11 26-04 tablet by ity of tablet 00:00: 05:59 mouth in [place] 00 :00 the [facility] morning [place] and 1 tablet in the evening. Take with meals. Do all this for 90 days. lisinopriL 2021-09- No [id number] 10mg Take 1 Univers 10 mg 2-11 26-04 tablet by ity of tablet 00:00: 05:59 mouth in [place] 00 :00 the [facility] for 90 days. amLODIPine 2021-09- No [id number] 10mg Take 1 Univers 10 mg 2-11 26-04 tablet by ity of tablet 00:00: 05:59 mouth in [place] 00 :00 the [facility] for 90 days. atorvastati 2021-09- No [id number] 80mg Take 1 Univers n 80 mg 2-11 26-04 tablet by ity of tablet 00:00: 05:59 mouth at [place] 00 :00 [facility] for 90 Branch days. carvediloL 2021-09- No [id number] 12.5mg Take 1 Univers 12.5 mg 2-04 tablet by ity of tablet 00:00: 05:59 mouth in [place] 00 :00 the [facility] and 1 tablet in the evening. Take with meals. Do all this for 90 days. lisinopriL 2021-09- No [id number] 10mg Take 1 Univers 10 mg 2-11 26-04 tablet by ity of tablet 00:00: 05:59 mouth in [place] 00 :00 the [facility] for 90 days. amLODIPine 2021-09- No [id number] 10mg Take 1 Univers 10 mg 2-11 26-04 tablet by ity of tablet 00:00: 05:59 mouth in [place] 00 :00 the [facility] for 90 days. atorvastati 2021-09- No [id number] 80mg Take 1 Univers n 80 mg 2-11 26-04 tablet by ity of tablet 00:00: 05:59 mouth at [place] 00 :00 [facility] for 90 Branch days. carvediloL 2021-09- No [id number] 12.5mg Take 1 Univers 12.5 mg 2-11 26-04 tablet by ity of tablet 00:00: 05:59 mouth in [place] 00 :00 the Medical morning Branch and 1 tablet in the evening. Take with meals. Do all this for 90 days. lisinopriL 2021-09- No [id number] 10mg Take 1 Univers 10 mg 2-11 26-04 tablet by ity of tablet 00:00: 05:59 mouth in [place] 00 :00 the [facility] for 90 days. amLODIPine 2021-09- No [id number] 10mg Take 1 Univers 10 mg 2-11 26-04 tablet by ity of tablet 00:00: 05:59 mouth in [place] 00 :00 the [facility] for 90 days. atorvastati 2021-09- No [id number] 80mg Take 1 Univers n 80 mg -11 26-04 tablet by ity of tablet 00:00: 05:59 mouth at [place] 00 :00 bedtime Medical for 90 Branch days. carvediloL 2021-09- No [id number] 12.5mg Take 1 Univers 12.5 mg 10-29-04 tablet by ity of tablet 00:00: 05:59 mouth in [place] 00 :00 the [facility] and 1 tablet in the evening. Take with meals. Do all this for 90 days. lisinopriL 2021-09- No [id number] 10mg Take 1 Univers 10 mg 10-29-04 tablet by ity of tablet 00:00: 05:59 mouth in [place] 00 :00 the [facility] for 90 days. blood sugar 2021-09- No [id number] Use as Univers diagnostic 10-29 directed ity of (ACCU-CHEK 00:00: 00:00 [place] GUIDE TEST 00 :00 Medical STRIPS) Branch strip blood sugar 2021-09- No [id number] Use as Univers diagnostic 10-29 directed ity of (ACCU-CHEK 00:00: 00:00 [place] GUIDE TEST 00 :00 Medical STRIPS) Branch strip Sliding 2021-09 Yes Subcutaneo Univ ers Scale 2-02 us, TID ity of Insulin - 23:00: [...] dose Medical (HumaLOG) + on Tue Branch [facility] [place] [facility] 08/27/22 at Testing 1700, Until Discontinu ed, Routine carvediloL 2021-09- No 6.25mg 6.25 mg, Univers (COREG) 10-28 Oral, BID ity of tablet 6.25 23:00: 15:39 MEALS, [place] as mg 00 :04 First dose Medical on Tue [place] 08/27/22 at 1700, Until Discontinu ed, Routine iopamidol 2021-09- No ONCE INTRA U nivers (ISOVUE 10-28 PROCEDURE, ity o f 370-500 mL) 19:05: 19:22 [place] injection 14 :45 on Tue [facility] 08/27/22 at Branch 1305, Until Tue08/27/22 at [...] [place] mL D5W for 00 :45 on Tue Medical Cardiac 08/27/22 at Branch Cath 1245, Until Tue08/27/22 at 1322, Routine, CV Intraproce dure heparin [...] Fri Medical 08/27/22 at Branch 1243, Until Tue08/27/22 at 1322, Routine, CV Intraproce dure midazolam 2021-09- No ONCE INTRA U nivers (VERSED) 10-28 PROCEDURE, ity of injection 18:31: 19:22 Starting [place] as 22 :45 on Tue Medical 08/27/22 at Branch 1231, Until Tue08/27/22 at 1322, Routine, CV Intraproce dure FENTanyl PF 2021-09- No ONCE INTRA Univers (SUBLIMAZE 10-28 PROCEDURE, it y of (PF)) 18:29: 19:22 Starting [place] injection 25 :45 on Tue Medical 08/27/22 at Branch 1229, Until Tue08/27/22 at 1322, Routine, CV Intraproce dure sulfur 2021-09- No [id number] 5mL 5 mL, Unive rs hexafluorid 10-28 Intravenou i ty of e microsphr 15:30: 15:30 s, ONCE, 1 [place] (LUMASON) 00 :00 dose, On Medica l injection 5 Fri Branch mL 08/27/22 at 0930, Routine
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 : CARLY TURNER pantoprazol [...] s mg 00 First dose Medical on Tue08/27/22 at 0900, Until Discontinu ed, Routine lisinopriL [...] mg 00 :38 First dose Medical on Fri Branch 08/27/22 at 0900, Until Discontinu ed, Routine lisinopriL 2021-09- No 10mg 10 mg, Univ ers (PRINIVIL,Z 10-28 Oral, ity of ESTRIL) 15:00: 22:49 DAILY, [place] tablet 10 00 :38 First dose Medi christelle mg on Tue Branch 08/27/22 at 0900, Until Discontinu ed, Routine aspirin 2021-09- No 325mg 325 mg, Unive rs tablet [...] Routine metoprolol 2021-09- No 50mg 50 mg, [facility] ers tartrate 10-28 Oral, BID, ity of (LOPRESSOR) 14:00: 15:39 First dose [place] tablet 50 00 :04 on Fri Medical mg 08/27/22 at Branch 0800, Until Discontinu ed, Routine venlafaxine 2021-09- No 75mg 75 mg, Uni vers XR (EFFEXOR 10-28 Oral, QAM it y of XR) 24 hr 14:00: 22:49 WITH [place] capsule 75 00 :38 BREAKFAST, Med ical mg First dose Branch on Tue08/27/22 at 0800, Until Discontinu ed, Routine metoprolol 2021-09- No 50mg 50 mg, [facility] ers tartrate 10-28 Oral, BID, ity of (LOPRESSOR) 14:00: 15:39 First dose [place] tablet 50 00 :04 on Fri Medical mg 08/27/22 at Branch 0800, Until Discontinu ed, Routine Sliding 2021-09 No Subcutaneo Uni vers Scale 10-28 us, TID ity of Insulin - 14:00: 21:42 MEALS+HS, [place] Lispro 00 :38 First dose Medical (HumaLOG) + on Tue Branch [facility] 08/27/22 at Testing 0800, Until Discontinu ed, Routine Sliding 2021-09- No [...] 650 40 Starting Medic al mg on Tue08/27/22 at 0041, Until Discontinu ed, Routine, Pain (scale 1-3) acetaminoph 2021-09 No 650mg 650 mg, U nivers en [...] 0039, Until Discontinu ed, Routine, anxiety busPIRone 2021-09 No 10mg 10 mg, Unive rs (BUSPAR) 10-28 Oral, ity of tablet 10 06:39: 22:49 BIDPRN, [place] mg 15 :38 Starting Medical on Tue Branch 08/27/22 at 0039, Until 08/28/22 at 1649, Routine, anxiety metoprolol 2021-09 No 5mg 5 mg, Slow Univers (LOPRESSOR) 10-28 IV Push, ity of injection 5 03:45: 03:50 ONCE, 1 [place] mg 00 :00 dose, On Medical [place] Branch 08/26/22 at 2145, DEREK HEPARIN 2021-09 No 4000U 4,000 Univers SODIUM 10-28 Units, IV ity of (PORCINE) 03:45: 03:51 Push, [place] 1,000 00 :00 ONCE, 1 Medical UNIT/ML dose, On Branch BOLUS ACS [place] ORDER SET 08/26/22 at 2145, DEREK metoprolol 2021-09 No 5mg 5 mg, Slow Univers (LOPRESSOR) 10-28 IV Push, ity of injection 5 03:45: 03:50 ONCE, 1 [place] mg 00 :00 dose, On Medical [place] Branch 08/26/22 at 2145, DEREK HEPARIN 2021-09- No 4000U 4,000 Univers SODIUM 2-02 12-02 Units, IV ity of (PORCINE) 03:45: 03:51 Push, [place] 1,000 00 :00 ONCE, 1 Medical UNIT/ML dose, On Branch BOLUS ACS [place] ORDER SET 08/26/22 at 2145, DEREK heparin 2021-2021- No 0U/h 0-2,750 Univer s 25,000 2-02 [...] therapy. Range, Dosing and Testing: &nbs p;FOR [facility], [facility], AND [facility] ONLY &nbs p; - aPTT < [...] therapy. Range, Dosing and Testing: &nbs p;FOR [place], AND [facility] ONLY &nbs p; - aPTT < 35: [...] OR INITIAL INFUSION RATE.
heparin 2021-09- No 3000U FOR Univers (1,000 10-28 REBOLUSING ity of unit/mL, 10 03:37: 15:34 , Starting [place] mL vial) 50 :37 on [facility] Medical for 08/26/22 at Branch Rebolusing 2137, Until 08/28/22 at 0934, Routine
Dosing based on aPPT testing parameters (refer to continuous heparin drip order).
heparin 2021-09 No 3000U FOR Univers (1,000 10-28 REBOLUSING ity of unit/mL, 10 03:37: 15:34 , Starting [place] mL vial) 50 :37 on [facility] for 08/26/22 at Branch Rebolusing 2137, Until 08/28/22 at 0934, Routine
Dosing based on aPPT testing parameters (refer to continuous heparin drip order).
cloNIDine 2021-09- No .1mg 0.1 mg, [facility] ers (CATAPRES) 10-28 Oral, ity of tablet 0.1 02:15: 02:09 ONCE, 1 [place] mg 00 :00 dose, On [facility] Branch 08/26/22 at 2015, STAT cloNIDine 2021-09- No .1mg 0.1 mg, [facility] ers (CATAPRES) 10-28 Oral, ity of tablet 0.1 02:15: 02:09 ONCE, 1 [place] mg 00 :00 dose, On [facility] Branch 08/26/22 at 2015, STAT metoprolol 2021-09 No 25mg 25 mg, [facility] ers tartrate 10-28 Oral, ONCE ity of (LOPRESSOR) 00:45: 00:15 NOW, 1 [place] tablet 25 00 :00 dose, On Medica l mg [facility] Branch 08/26/22 at 1845, DEREK metoprolol 2021-09 No 25mg 25 mg, [facility] ers tartrate 10-28 Oral, ONCE ity of (LOPRESSOR) 00:45: 00:15 NOW, 1 [place] tablet 25 00 :00 dose, On Medica l mg [facility] Branch 08/26/22 at 1845, DEREK metoprolol 2021-09 No 5mg 5 mg, Slow Univers (LOPRESSOR) 10-27 IV Push, ity of injection 5 23:30: 23:48 ONCE, 1 [place] mg 00 :00 dose, On [facility] 08/26/22 at 1730, DEREK metoprolol 2022-1 2022- No 5mg 5 mg, Slow Univers (LOPRESSOR) 10-27 IV Push, ity of injection 5 23:30: 23:48 ONCE, 1 [place] mg 00 :00 dose, On Medical [place] Branch 08/26/22 at 1730, DEREK busPIRone 2021-09 Yes [id number] 10mg Take 1 U nivers 10 mg 1-01 tablet by ity of tablet 00:00: mouth (two) Medical times Branch daily as needed for Other (anxiety). metoprolol 2021-09 Yes [id number] 50mg Take 2 U nivers tartrate 25 1-01 tablets by it y of mg tablet 00:00: [place] 00 the Medical morning Branch and 2 tablets in the evening. busPIRone 2021-09 Yes [id number] 10mg Take 1 U nivers 10 mg 1-01 tablet by ity of tablet 00:00: mouth (two) Medical times Branch daily as needed for Other (anxiety). metoprolol 2021-09 Yes [id number] 50mg Take 2 U nivers tartrate 25 1-01 tablets by it y of mg tablet 00:00: [place] 00 the Medical morning Branch and 2 tablets in the evening. busPIRone 2021-09 Yes [id number] 10mg Take 1 U nivers 10 mg 1-01 tablet by ity of tablet 00:00: mouth 2 (two) Medical times Branch daily as needed for Other (anxiety). metoprolol 2021-09 Yes [id number] 50mg Take 2 U nivers tartrate 25 1-01 tablets by it y of mg tablet 00:00: [place] 00 the Medical morning Branch and 2 tablets in the evening. busPIRone 2021-09 Yes [id number] 10mg Take 1 U nivers 10 mg 1-01 tablet by ity of tablet 00:00: mouth (two) Medical times Branch daily as needed for Other (anxiety). metoprolol 2021-09 Yes [id number] 50mg Take 2 U nivers tartrate 25 1-01 tablets by it y of mg tablet 00:00: [place] 00 the Medical morning Branch and 2 tablets in the evening. busPIRone 2021-09 Yes [id number] 10mg Take 1 U nivers 10 mg 1-01 tablet by ity of tablet 00:00: mouth 2 (two) Medical times Branch daily as needed for Other (anxiety). metoprolol 2021-09 Yes [id number] 50mg Take 2 U nivers tartrate 25 1-01 tablets by it y of mg tablet 00:00: [place] 00 the Medical morning Branch and 2 tablets in the evening. busPIRone 2021-09 Yes [id number] 10mg Take 1 [facility] 10 mg 1-01 tablet by [facility] of tablet 00:00: mouth 2 (two) Medical times Branch daily as needed for Other (anxiety). metoprolol 2021-09 Yes [id number] 50mg Take 2 [facility] nivers tartrate 25 1-01 tablets by it y of mg tablet 00:00: mouth [place] 00 the Medical morning Branch and 2 tablets in the evening. busPIRone 2021-09 Yes [id number] 10mg Take 1 [facility] 10 mg 1-01 tablet by ity of tablet 00:00: mouth ([facility]) Medical times Branch daily as needed for Other (anxiety). metoprolol 2021-09 Yes [id number] 50mg Take 2 U nivers tartrate 25 1-01 tablets by it y of mg tablet 00:00: mouth in [place] 00 the Medical morning Branch and 2 tablets in the evening. busPIRone 2021-09 Yes [id number] 10mg Take 1 [facility] n[facility] 10 mg 1-01 tablet by ity of tablet 00:00: mouth ([facility]) Medical times Branch daily as needed for Other (anxiety). metoprolol 2021-09 Yes [id number] 50mg Take 2 [facility] nivers tartrate 25 1-01 tablets by it y of mg tablet 00:00: mouth [place] 00 the Medical morning Branch and 2 tablets in the evening. busPIRone 2021-09 Yes [id number] 10mg Take 1 [facility] nivers 10 mg 1-01 tablet by ity of tablet 00:00: mouth 2 00 (two) Medical times Branch daily as needed for Other (anxiety). metoprolol 2021-09 Yes [id number] 50mg Take 2 U nivers tartrate 25 1-01 tablets by it y of mg tablet 00:00: mouth [place] 00 the Medical morning Branch and 2 tablets in the evening. busPIRone 2021-09 Yes [id number] 10mg Take 1 [facility] n[facility] 10 mg 1-01 tablet by ity of tablet 00:00: mouth 2 (two) Medical times Branch daily as needed for Other (anxiety). busPIRone 2021-09 Yes [id number] 10mg Take 1 [facility] n[facility] 10 mg 1-01 tablet by ity of tablet 00:00: mouth 2 (two) Medical times Branch daily as needed for Other (anxiety). busPIRone 2021-09 Yes [id number] 10mg Take 1 [facility] n[facility] 10 mg 1-01 tablet by ity of tablet 00:00: mouth 2 (two) Medical times Branch daily as needed for Other (anxiety). busPIRone 2021-09 Yes [id number] 10mg Take 1 [facility] n[facility] 10 mg 1-01 tablet by ity of tablet 00:00: mouth 2 (two) Medical times Branch daily as needed for Other (anxiety). busPIRone 2021-09 Yes [id number] 10mg Take 1 [facility] 10 mg 1-01 tablet by ity of tablet 00:00: mouth 2 (two) Medical times Branch daily as needed for Other (anxiety). busPIRone 2021-09 Yes [id number] 10mg Take 1 [facility] 10 mg 1-01 tablet by ity of tablet 00:00: mouth 2 (two) Medical times Branch daily as needed for Other (anxiety). busPIRone 2021-09 Yes [id number] 10mg Take 1 [facility] 10 mg 1-01 tablet by ity of tablet 00:00: mouth 2 (two) Medical times Branch daily as needed for Other (anxiety). busPIRone 2021-09 Yes [id number] 10mg Take 1 [facility] 10 mg 1-01 tablet by ity of tablet 00:00: mouth 2 00 (two) Medical times Branch daily as needed for Other (anxiety). busPIRone 2021-09 Yes [id number] 10mg Take 1 [facility] 10 mg 1-01 tablet by ity of tablet 00:00: mouth 2 (two) Medical times Branch daily as needed for Other (anxiety). busPIRone 2021-09 Yes [id number] 10mg Take 1 [facility] nivers 10 mg 1-01 tablet by ity of tablet 00:00: mouth 2 [place] 00 (two) Medical times Branch daily as needed for Other (anxiety). busPIRone 2021-09 Yes [id number] 10mg Take 1 [facility] nivers 10 mg 1-01 tablet by ity of tablet 00:00: mouth 2 [place] 00 (two) Medical times Branch daily as needed for Other (anxiety). busPIRone 2021-09 Yes [id number] 10mg Take 1 [facility] n[facility] 10 mg 1-01 tablet by ity of tablet 00:00: mouth 2 [place] 00 (two) Medical times Branch daily as needed for Other (anxiety). busPIRone 2021-09 Yes [id number] 10mg Take 1 [facility] 10 mg 1-01 tablet by ity of tablet 00:00: mouth 2 [place] 00 (two) Medical times Branch daily as needed for Other (anxiety). busPIRone 2021-09 Yes [id number] 10mg Take 1 [facility] 10 mg 1-01 tablet by ity of tablet 00:00: mouth 2 00 (two) Medical times Branch daily as needed for Other (anxiety). busPIRone 2021-09 Yes [id number] 10mg Take 1 [facility] 10 mg 1-01 tablet by ity of tablet 00:00: mouth 2 [place] 00 (two) Medical times Branch daily as needed for Other (anxiety). busPIRone 2021-09 Yes [id number] 10mg Take 1 [facility] 10 mg 1-01 tablet by ity of tablet 00:00: mouth 2 [place] 00 (two) Medical times Branch daily as needed for Other (anxiety). busPIRone 2021-09 Yes [id number] 10mg Take 1 [facility] 10 mg 1-01 tablet by ity of tablet 00:00: mouth 2 [place] 00 (two) Medical times Branch daily as needed for Other (anxiety). busPIRone 2021-09 Yes [id number] 10mg Take 1 [facility] 10 mg 1-01 tablet by ity of tablet 00:00: mouth 2 [place] 00 (two) Medical times Branch daily as needed for Other (anxiety). busPIRone 2021-09 Yes [id number] 10mg Take 1 [facility] n[facility] 10 mg 1-01 tablet by ity of tablet 00:00: mouth 2 00 (two) Medical times Branch daily as needed for Other (anxiety). busPIRone 2021-09 Yes [id number] 10mg Take 1 [facility] 10 mg 1-01 tablet by ity of tablet 00:00: mouth 2 [place] 00 (two) Medical times Branch daily as needed for Other (anxiety). busPIRone 2021-09 Yes [id number] 10mg Take 1 [facility] 10 mg 1-01 tablet by ity of tablet 00:00: mouth 2 00 (two) Medical times Branch daily as needed for Other (anxiety). busPIRone 2021-09 Yes [id number] 10mg Take 1 [facility] 10 mg 1-01 tablet by ity of tablet 00:00: mouth 2 00 (two) Medical times Branch daily as needed for Other (anxiety). busPIRone 2021-09 Yes [id number] 10mg Take 1 [facility] 10 mg 1-01 tablet by ity of tablet 00:00: mouth 2 00 (two) Medical times Branch daily as needed for Other (anxiety). busPIRone 2021-09 Yes [id number] 10mg Take 1 [facility] 10 mg 1-01 tablet by ity of tablet 00:00: mouth 2 00 (two) Medical times Branch daily as needed for Other (anxiety). busPIRone 2021-09 Yes [id number] 10mg Take 1 [facility] 10 mg 1-01 tablet by ity of tablet 00:00: mouth 2 00 (two) Medical times Branch daily as needed for Other (anxiety). busPIRone 2021-09 Yes [id number] 10mg Take 1 [facility] n[facility] 10 mg 1-01 tablet by ity of tablet 00:00: mouth 2 00 (two) Medical times Branch daily as needed for Other (anxiety). busPIRone 2021-09 Yes [id number] 10mg Take 1 [facility] n[facility] 10 mg 1-01 tablet by ity of tablet 00:00: mouth 2 [place] 00 (two) Medical times Branch daily as needed for Other (anxiety). busPIRone 2021-09 Yes [id number] 10mg Take 1 [facility] 10 mg 1-01 tablet by ity of tablet 00:00: mouth 2 (two) Medical times Branch daily as needed for Other (anxiety). busPIRone 2021-09 Yes [id number] 10mg Take 1 [facility] 10 mg 1-01 tablet by ity of tablet 00:00: mouth 2 (two) Medical times Branch daily as needed for Other (anxiety). busPIRone 2021-09 Yes [id number] 10mg Take 1 [facility] 10 mg 1-01 tablet by ity of tablet 00:00: mouth 2 00 (two) Medical times Branch daily as needed for Other (anxiety). busPIRone 2021-09 Yes [id number] 10mg Take 1 [facility] 10 mg 1-01 tablet by ity of tablet 00:00: mouth 2 (two) Medical times Branch daily as needed for Other (anxiety). busPIRone 2021-09 Yes [id number] 10mg Take 1 [facility] 10 mg 1-01 tablet by ity of tablet 00:00: mouth 2 (two) Medical times Branch daily as needed for Other (anxiety). busPIRone 2021-09 Yes [id number] 10mg Take 1 [facility] 10 mg 1-01 tablet by ity of tablet 00:00: mouth 2 (two) Medical times Branch daily as needed for Other (anxiety). busPIRone 2021-09 Yes [id number] 10mg Take 1 [facility] 10 mg 1-01 tablet by ity of tablet 00:00: mouth 2 (two) Medical times Branch daily as needed for Other (anxiety). busPIRone 2021-09 Yes [id number] 10mg Take 1 [facility] 10 mg 1-01 tablet by ity of tablet 00:00: mouth 2 (two) Medical times Branch daily as needed for Other (anxiety). metoprolol 2021-09- No [id number] 50mg Take 2 [facility] tartrate 25 09-26-03 tablets by i ty of mg tablet 00:00: 00:00 mouth in [place] 00 :00 the Medical morning Branch and 2 tablets in the evening. metoprolol 2021-09- No [id number] 50mg Take 2 [facility] tartrate 25 -10 07- tablets by i ty of mg tablet 00:00: 00:00 mouth in [place] 00 :00 the Medical morning Branch and 2 tablets in the evening. venlafaxine 2021-2021- No 75mg Take 75 mg [facility] XR [...] Branch in the evening. aspirin 81 2021-0 2021- No 81mg Take 81 mg [facility] mg EC 06-22 by mouth ity of tablet 11:02: 00:00 daily. [place] 39 :00 Medical Branch aspirin 81 2021-0 2021- No 81mg Take 81 mg [facility] mg EC 06-22 by mouth ity of tablet 11:02: 00:00 daily. [place] 39 :00 Medical Branch lisinopriL 2021-0 Yes [id number] 10mg Take 1 U nivers 10 mg - tablet by ity of tablet 00:00: mouth in [place] 00 the Medical morning. Branch metoprolol 2021-0 Yes [id number] 25mg Take 1 [facility] nivers tartrate 25 9-27 tablet by ity of mg tablet 00:00: mouth [place] 00 the Medical morning Branch and 1 tablet in the evening. venlafaxine 2-0 Yes [id number] 75mg Take 1 [facility] XR 75 mg 24 9-27 capsule by it y of hr capsule 00:00: mouth [place] 00 daily with Medical breakfast. Branch tamsulosin 2021-0 Yes [id number] .4mg Take 1 [facility] nivers 0.4 mg 24 9-27 capsule by ity of hr capsule 00:00: mouth in [place] 00 the Medical morning. Branch lisinopriL 2021-0 Yes [id number] 10mg Take 1 [facility] nivers 10 mg 9-27 tablet by ity of tablet 00:00: mouth in [place] 00 the Medical morning. Branch metoprolol 2021-0 Yes [id number] 25mg Take 1 U nivers tartrate 25 9-27 tablet by ity of mg tablet 00:00: mouth [place] 00 the Medical morning Branch and 1 tablet in the evening. venlafaxine 2021-0 Yes [id number] 75mg Take 1 [facility] XR 75 mg 24 9-27 capsule by it y of hr capsule 00:00: mouth [place] 00 daily with Medical breakfast. Branch tamsulosin 2021-0 Yes [id number] .4mg Take 1 [facility] nivers 0.4 mg 24 9-27 capsule by ity of hr capsule 00:00: mouth in [place] 00 the Medical morning. Branch lisinopriL 2021-0 Yes [id number] 10mg Take 1 [facility] nivers 10 mg 9-27 tablet by ity of tablet 00:00: mouth in [place] 00 the Medical morning. Branch metoprolol 2021-0 Yes [id number] 25mg Take 1 U nivers tartrate 25 9-27 tablet by ity of mg tablet 00:00: mouth [place] 00 the Medical morning Branch and 1 tablet in the evening. venlafaxine 2021-0 Yes [id number] 75mg Take 1 [facility] XR 75 mg 24 9-27 capsule by it y of hr capsule 00:00: mouth [place] 00 daily with Medical breakfast. Branch tamsulosin 2021-0 Yes [id number] .4mg Take 1 [facility] nivers 0.4 mg 24 9-27 capsule by ity of hr capsule 00:00: mouth in [place] 00 the Medical morning. Branch lisinopriL 2021-0 Yes [id number] 10mg Take 1 [facility] nivers 10 mg 9-27 tablet by ity of tablet 00:00: mouth in [place] 00 the Medical morning. Branch metoprolol 2021-0 Yes [id number] 25mg Take 1 [facility] n[facility] tartrate 25 9-27 tablet by ity of mg tablet 00:00: mouth in [place] 00 the Medical morning Branch and 1 tablet in the evening. venlafaxine 2021-0 Yes [id number] 75mg Take 1 [facility] XR 75 mg 24 9-27 capsule by it y of hr capsule 00:00: mouth [place] 00 daily with Medical breakfast. Branch tamsulosin 2021-0 Yes [id number] .4mg Take 1 [facility]ivers 0.4 mg 24 9-27 capsule by ity of hr capsule 00:00: mouth in [place] 00 the Medical morning. Branch lisinopriL 2021-0 Yes [id number] 10mg Take 1 [facility] nivers 10 mg 9-27 tablet by ity of tablet 00:00: mouth in [place] 00 the Medical morning. Branch metoprolol 2021-0 Yes [id number] 25mg Take 1 [facility] nivers tartrate 25 9-27 tablet by ity of mg tablet 00:00: mouth in [place] 00 the Medical morning Branch and 1 tablet in the evening. venlafaxine 2021-0 Yes [id number] 75mg Take 1 [facility] XR 75 mg 24 9-27 capsule by it y of hr capsule 00:00: mouth [place] 00 daily with Medical breakfast. Branch tamsulosin 2021-0 Yes [id number] .4mg Take 1 [facility] 0.4 mg 24 9-27 capsule by ity of hr capsule 00:00: mouth in [place] 00 the Medical morning. Branch lisinopriL 2021-0 Yes [id number] 10mg Take 1 [facility] nivers 10 mg 9-27 tablet by ity of tablet 00:00: mouth in [place] 00 the Medical morning. Branch venlafaxine 2021-0 Yes [id number] 75mg Take 1 [facility] XR 75 mg 24 9-27 capsule by it y of hr capsule 00:00: mouth [place] 00 daily with Medical breakfast. Branch tamsulosin 2-0 Yes [id number] .4mg Take 1 [facility] nivers 0.4 mg 24 9-27 capsule by ity of hr capsule 00:00: mouth in [facility] as 00 the Medical morning. Branch lisinopriL 2-0 Yes [id number] 10mg Take 1 U nivers 10 mg 9-27 tablet by ity of tablet 00:00: mouth in [place] 00 the Medical morning. Branch venlafaxine 2-0 Yes [id number] 75mg Take 1 [facility] XR 75 mg 24 9-27 capsule by it y of hr capsule 00:00: mouth [place] 00 daily with Medical breakfast. Branch tamsulosin 2-0 Yes [id number] .4mg Take 1 U nivers 0.4 mg 24 9-27 capsule by ity of hr capsule 00:00: mouth in [facility] as 00 the Medical morning. Branch lisinopriL 2-0 Yes [id number] 10mg Take 1 U nivers 10 mg 9-27 tablet by ity of tablet 00:00: mouth in [place] 00 the Medical morning. Branch venlafaxine 2-0 Yes [id number] 75mg Take 1 [facility] XR 75 mg 24 9-27 capsule by it y of hr capsule 00:00: mouth [place] 00 daily with Medical breakfast. Branch tamsulosin 2-0 Yes [id number] .4mg Take 1 U nivers 0.4 mg 24 9-27 capsule by ity of hr capsule 00:00: mouth in [facility] as 00 the Medical morning. Branch lisinopriL 2-0 Yes [id number] 10mg Take 1 U nivers 10 mg 9-27 tablet by ity of tablet 00:00: mouth in [place] 00 the Medical morning. Branch venlafaxine 2-0 Yes [id number] 75mg Take 1 [facility] XR 75 mg 24 9-27 capsule by it y of hr capsule 00:00: mouth [place] 00 daily with Medical breakfast. Branch tamsulosin 2-0 Yes [id number] .4mg Take 1 [facility] n[facility] 0.4 mg 24 9-27 capsule by ity of hr capsule 00:00: mouth in [facility] as 00 the Medical morning. Branch lisinopriL 2-0 Yes [id number] 10mg Take 1 U nivers 10 mg 9-27 tablet by ity of tablet 00:00: mouth in [place] 00 the Medical morning. Branch venlafaxine 2-0 Yes [id number] 75mg Take 1 [facility] XR 75 mg 24 9-27 capsule by it y of hr capsule 00:00: mouth [place] 00 daily with Medical breakfast. Branch tamsulosin 2022-0 Yes [id number] .4mg Take 1 U nivers 0.4 mg 24 9-27 capsule by ity of hr capsule 00:00: mouth in [place] 00 the Medical morning. Branch lisinopriL 2-0 Yes [id number] 10mg Take 1 U nivers 10 mg 9-27 tablet by ity of tablet 00:00: mouth in [place] 00 the Medical morning. Branch venlafaxine 2-0 Yes [id number] 75mg Take 1 [facility] XR 75 mg 24 9-27 capsule by it y of hr capsule 00:00: mouth [place] 00 daily with Medical breakfast. Branch tamsulosin 2-0 Yes [id number] .4mg Take 1 [facility] n[facility] 0.4 mg 24 9-27 capsule by ity of hr capsule 00:00: mouth in [place] 00 the Medical morning. Branch lisinopriL 2-0 Yes [id number] 10mg Take 1 [facility] nivers 10 mg 9-27 tablet by ity of tablet 00:00: mouth in [place] 00 the Medical morning. Branch venlafaxine 2-0 Yes [id number] 75mg Take 1 [facility] XR 75 mg 24 9-27 capsule by it y of hr capsule 00:00: mouth [place] 00 daily with Medical breakfast. Branch tamsulosin 2-0 Yes [id number] .4mg Take 1 [facility] n[facility] 0.4 mg 24 9-27 capsule by ity of hr capsule 00:00: mouth in [place] 00 the Medical morning. Branch lisinopriL 2-0 Yes [id number] 10mg Take 1 [facility] nivers 10 mg 9-27 tablet by ity of tablet 00:00: mouth in [place] 00 the Medical morning. Branch venlafaxine 2-0 Yes [id number] 75mg Take 1 [facility] XR 75 mg 24 9-27 capsule by it y of hr capsule 00:00: mouth [place] 00 daily with Medical breakfast. Branch tamsulosin 2-0 Yes [id number] .4mg Take 1 [facility] n[facility] 0.4 mg 24 9-27 capsule by ity of hr capsule 00:00: mouth in [place] 00 the Medical morning. Branch lisinopriL 2022-0 Yes [id number] 10mg Take 1 [facility] nivers 10 mg 9-27 tablet by ity of tablet 00:00: mouth in [place] 00 the Medical morning. Branch venlafaxine 2021-0 Yes [id number] 75mg Take 1 [facility] XR 75 mg 24 9-27 capsule by it y of hr capsule 00:00: mouth [place] 00 daily with Medical breakfast. Branch tamsulosin 2021-0 Yes [id number] .4mg Take 1 [facility] 0.4 mg 24 9-27 capsule by ity of hr capsule 00:00: mouth in [place] 00 the Medical morning. Branch venlafaxine 2-0 Yes [id number] 75mg Take 1 [facility] XR 75 mg 24 9-27 capsule by it y of hr capsule 00:00: mouth [place] 00 daily with Medical breakfast. Branch tamsulosin 2021-0 Yes [id number] .4mg Take 1 [facility] 0.4 mg 24 9-27 capsule by ity of hr capsule 00:00: mouth in [place] 00 the Medical morning. Branch venlafaxine 2021-0 Yes [id number] 75mg Take 1 [facility] XR 75 mg 24 9-27 capsule by it y of hr capsule 00:00: mouth [place] 00 daily with Medical breakfast. Branch tamsulosin 2021-0 Yes [id number] .4mg Take 1 [facility] 0.4 mg 24 9-27 capsule by ity of hr capsule 00:00: mouth in [place] 00 the Medical morning. Branch venlafaxine 2021-0 Yes [id number] 75mg Take 1 [facility] XR 75 mg 24 9-27 capsule by it y of hr capsule 00:00: mouth [place] 00 daily with Medical breakfast. Branch tamsulosin 2-0 Yes [id number] .4mg Take 1 [facility] 0.4 mg 24 9-27 capsule by ity of hr capsule 00:00: mouth in [place] 00 the Medical morning. Branch venlafaxine 2-0 Yes [id number] 75mg Take 1 [facility] XR 75 mg 24 9-27 capsule by it y of hr capsule 00:00: mouth [place] 00 daily with Medical breakfast. Branch tamsulosin 2-0 Yes [id number] .4mg Take 1 [facility] 0.4 mg 24 9-27 capsule by ity of hr capsule 00:00: mouth in [place] 00 the Medical morning. Branch venlafaxine 2-0 Yes [id number] 75mg Take 1 [facility] XR 75 mg 24 9-27 capsule by it y of hr capsule 00:00: mouth [place] 00 daily with Medical breakfast. Branch tamsulosin 2021-0 Yes [id number] .4mg Take 1 [facility] 0.4 mg 24 9-27 capsule by ity of hr capsule 00:00: mouth in [place] 00 the Medical morning. Branch venlafaxine 2021-0 Yes [id number] 75mg Take 1 [facility] XR 75 mg 24 9-27 capsule by it y of hr capsule 00:00: mouth [place] 00 daily with Medical breakfast. Branch tamsulosin 2021-0 Yes [id number] .4mg Take 1 [facility] n[facility] 0.4 mg 24 9-27 capsule by ity of hr capsule 00:00: mouth in [place] 00 the Medical morning. Branch venlafaxine 2021-0 Yes [id number] 75mg Take 1 [facility] XR 75 mg 24 9-27 capsule by it y of hr capsule 00:00: mouth [place] 00 daily with Medical breakfast. Branch tamsulosin 2021-0 Yes [id number] .4mg Take 1 [facility] nivers 0.4 mg 24 9-27 capsule by ity of hr capsule 00:00: mouth in [place] 00 the Medical morning. Branch venlafaxine 2021-0 Yes [id number] 75mg Take 1 [facility] XR 75 mg 24 9-27 capsule by it y of hr capsule 00:00: mouth [place] 00 daily with Medical breakfast. Branch tamsulosin 2021-0 Yes [id number] .4mg Take 1 [facility] nivers 0.4 mg 24 9-27 capsule by ity of hr capsule 00:00: mouth in [place] 00 the Medical morning. Branch venlafaxine 2021-0 Yes [id number] 75mg Take 1 [facility] XR 75 mg 24 9-27 capsule by it y of hr capsule 00:00: mouth [place] 00 daily with Medical breakfast. Branch tamsulosin 2021-0 Yes [id number] .4mg Take 1 [facility] nivers 0.4 mg 24 9-27 capsule by ity of hr capsule 00:00: mouth in [place] 00 the Medical morning. Branch venlafaxine 2021-0 Yes [id number] 75mg Take 1 [facility] XR 75 mg 24 9-27 capsule by it y of hr capsule 00:00: mouth [place] 00 daily with Medical breakfast. Branch tamsulosin 2021-0 Yes [id number] .4mg Take 1 [facility] nivers 0.4 mg 24 9-27 capsule by ity of hr capsule 00:00: mouth in [place] 00 the Medical morning. Branch venlafaxine 2021-0 Yes [id number] 75mg Take 1 [facility] XR 75 mg 24 9-27 capsule by it y of hr capsule 00:00: mouth [place] 00 daily with Medical breakfast. Branch tamsulosin 2021-0 Yes [id number] .4mg Take 1 [facility] nivers 0.4 mg 24 9-27 capsule by ity of hr capsule 00:00: mouth in [place] 00 the Medical morning. Branch venlafaxine 2021-0 Yes [id number] 75mg Take 1 [facility] XR 75 mg 24 9-27 capsule by it y of hr capsule 00:00: mouth [place] 00 daily with Medical breakfast. Branch tamsulosin 2021-0 Yes [id number] .4mg Take 1 [facility] nivers 0.4 mg 24 9-27 capsule by ity of hr capsule 00:00: mouth in [place] 00 the Medical morning. Branch venlafaxine 2021-0 Yes [id number] 75mg Take 1 [facility] XR 75 mg 24 9-27 capsule by it y of hr capsule 00:00: mouth [place] 00 daily with Medical breakfast. Branch tamsulosin 2021-0 Yes [id number] .4mg Take 1 [facility] nivers 0.4 mg 24 9-27 capsule by ity of hr capsule 00:00: mouth in [place] 00 the Medical morning. Branch venlafaxine 2021-0 Yes [id number] 75mg Take 1 [facility] XR 75 mg 24 9-27 capsule by it y of hr capsule 00:00: mouth [place] 00 daily with Medical breakfast. Branch tamsulosin 2021-0 Yes [id number] .4mg Take 1 U nivers 0.4 mg 24 9-27 capsule by ity of hr capsule 00:00: mouth in [place] 00 the Medical morning. Branch venlafaxine 2021-0 Yes [id number] 75mg Take 1 [facility] XR 75 mg 24 9-27 capsule by it y of hr capsule 00:00: mouth [place] 00 daily with Medical breakfast. Branch tamsulosin 2-0 Yes [id number] .4mg Take 1 U nivers 0.4 mg 24 9-27 capsule by ity of hr capsule 00:00: mouth in [place] 00 the Medical morning. Branch venlafaxine 2021-0 Yes [id number] 75mg Take 1 [facility] XR 75 mg 24 9-27 capsule by it y of hr capsule 00:00: mouth [place] 00 daily with Medical breakfast. Branch tamsulosin 2021-0 Yes [id number] .4mg Take 1 U nivers 0.4 mg 24 9-27 capsule by ity of hr capsule 00:00: mouth in [place] 00 the Medical morning. Branch venlafaxine 2021-0 Yes [id number] 75mg Take 1 [facility] XR 75 mg 24 9-27 capsule by it y of hr capsule 00:00: mouth [place] 00 daily with Medical breakfast. Branch tamsulosin 2021-0 Yes [id number] .4mg Take 1 U nivers 0.4 mg 24 9-27 capsule by ity of hr capsule 00:00: mouth in [place] 00 the Medical morning. Branch venlafaxine 2021-0 Yes [id number] 75mg Take 1 [facility] XR 75 mg 24 9-27 capsule by it y of hr capsule 00:00: mouth [place] 00 daily with Medical breakfast. Branch tamsulosin 2021-0 Yes [id number] .4mg Take 1 U nivers 0.4 mg 24 9-27 capsule by ity of hr capsule 00:00: mouth in [place] 00 the Medical morning. Branch venlafaxine 2021-0 Yes [id number] 75mg Take 1 [facility] XR 75 mg 24 9-27 capsule by it y of hr capsule 00:00: mouth [place] 00 daily with Medical breakfast. Branch tamsulosin 2021-0 Yes [id number] .4mg Take 1 [facility] nivers 0.4 mg 24 9-27 capsule by ity of hr capsule 00:00: mouth in [place] 00 the Medical morning. Branch venlafaxine 2-0 Yes [id number] 75mg Take 1 [facility] XR 75 mg 24 9-27 capsule by it y of hr capsule 00:00: mouth [place] 00 daily with Medical breakfast. Branch tamsulosin 2-0 Yes [id number] .4mg Take 1 [facility] nivers 0.4 mg 24 9-27 capsule by ity of hr capsule 00:00: mouth in [place] 00 the Medical morning. Branch venlafaxine 2-0 Yes [id number] 75mg Take 1 [facility] XR 75 mg 24 9-27 capsule by it y of hr capsule 00:00: mouth [place] 00 daily with Medical breakfast. Branch tamsulosin 2-0 Yes [id number] .4mg Take 1 [facility] nivers 0.4 mg 24 9-27 capsule by ity of hr capsule 00:00: mouth in [place] 00 the Medical morning. Branch venlafaxine 2-0 Yes [id number] 75mg Take 1 [facility] XR 75 mg 24 9-27 capsule by it y of hr capsule 00:00: mouth [place] 00 daily with Medical breakfast. Branch tamsulosin 2-0 Yes [id number] .4mg Take 1 U nivers 0.4 mg 24 9-27 capsule by ity of hr capsule 00:00: mouth in [place] 00 the Medical morning. Branch venlafaxine 2-0 Yes [id number] 75mg Take 1 [facility] XR 75 mg 24 9-27 capsule by it y of hr capsule 00:00: mouth [place] 00 daily with Medical breakfast. Branch tamsulosin 2-0 Yes [id number] .4mg Take 1 [facility] nivers 0.4 mg 24 9-27 capsule by ity of hr capsule 00:00: mouth in [place] 00 the Medical morning. Branch tamsulosin 2-0 Yes [id number] .4mg Take 1 [facility] n[facility] 0.4 mg 24 9-27 capsule by ity of hr capsule 00:00: mouth in [place] 00 the Medical morning. Branch tamsulosin 2-0 Yes [id number] .4mg Take 1 [facility] nivers 0.4 mg 24 9-27 capsule by ity of hr capsule 00:00: mouth in [place] 00 the Medical morning. Branch tamsulosin 2-0 Yes [id number] .4mg Take 1 [facility] nivers 0.4 mg 24 9-27 capsule by ity of hr capsule 00:00: mouth in [place] 00 the Medical morning. Branch tamsulosin 2022-0 Yes [id number] .4mg Take 1 [facility] nivers 0.4 mg 24 9-27 capsule by ity of hr capsule 00:00: mouth in [place] 00 the Medical morning. Branch tamsulosin 2022-0 Yes [id number] .4mg Take 1 [facility]ivers 0.4 mg 24 9-27 capsule by ity of hr capsule 00:00: mouth in [place] 00 the Medical morning. Branch tamsulosin 2-0 Yes [id number] .4mg Take 1 [facility] nivers 0.4 mg 24 9-27 capsule by ity of hr capsule 00:00: mouth in [place] 00 the Medical morning. Branch tamsulosin 2-0 Yes [id number] .4mg Take 1 [facility] nivers 0.4 mg 24 9-27 capsule by ity of hr capsule 00:00: mouth in [place] 00 the Medical morning. Branch tamsulosin 2-0 Yes [id number] .4mg Take 1 [facility] 0.4 mg 24 9-27 capsule by ity of hr capsule 00:00: mouth in [place] 00 the Medical morning. Branch tamsulosin 2-0 Yes [id number] .4mg Take 1 [facility]ivers 0.4 mg 24 9-27 capsule by ity of hr capsule 00:00: mouth in [place] 00 the Medical morning. Branch tamsulosin 2021-0 Yes [id number] .4mg Take 1 U nivers 0.4 mg 24 9-27 capsule by ity of hr capsule 00:00: mouth in [place] 00 the Medical morning. Branch tamsulosin 2-0 Yes [id number] .4mg Take 1 U nivers 0.4 mg 24 9-27 capsule by ity of hr capsule 00:00: mouth in [place] 00 the Medical morning. Branch tamsulosin 2-0 Yes [id number] .4mg Take 1 U nivers 0.4 mg 24 9-27 capsule by ity of hr capsule 00:00: mouth in [place] 00 the Medical morning. Branch venlafaxine 2021-2022- No [id number] 75mg Take 1 [facility] XR 75 mg 24 06-22- capsule by i ty of hr capsule 00:00: 00:00 mouth [place] 00 :00 daily with Medical breakfast. Branch venlafaxine 2021-2022- No [id number] 75mg Take 1 [facility] XR 75 mg 24 -19 02- capsule by i ty of hr capsule 00:00: 00:00 mouth [place] 00 :00 daily with Medical breakfast. Branch lisinopriL 2021- No [id number] 10mg Take 1 [facility] 10 mg 06-22 tablet by ity of tablet 00:00: 00:00 mouth in [place] 00 :00 the Medical morning. Branch lisinopriL 2021-2021- No [id number] 10mg Take 1 [facility] 10 mg 06-22 tablet by ity of tablet 00:00: 00:00 mouth in [place] 00 :00 the Medical morning. Branch metoprolol 2021-2021- No [id number] 25mg Take 1 [facility] tartrate 25 06-22 tablet by it y of mg tablet 00:00: 00:00 mouth in [facility] as 00 :00 the Medical morning Branch and 1 tablet in the evening. metoprolol 2021-2021- No [id number] 25mg Take 1 [facility] tartrate 25 06-22 tablet by it y of mg tablet 00:00: 00:00 mouth in [facility] as 00 :00 the Medical morning Branch and 1 tablet in the evening. citalopram 2021-0 Yes [id number] 20mg Take 1 [facility] 20 mg 8-24 tablet by ity of tablet 00:00: mouth in [place] 00 the Medical morning. Branch ARIPiprazol 2021-0 Yes [id number] 5mg Take 1 [facility] e (ABILIFY) -24 tablet by ity of 5 mg tablet 00:00: mouth in [facility] 00 the Medical morning. Branch citalopram 2021-2021- No [id number] 20mg Take 1 [facility] 20 mg 05-19 tablet by ity of tablet 00:00: 00:00 mouth in [place] 00 :00 the Medical morning. Branch ARIPiprazol 2021-0 2- No [id number] 5mg Take 1 [facility] e (ABILIFY) -06-22 tablet by it y of 5 mg tablet 00:00: 00:00 mouth in [facility] 00 :00 the Medical morning. Branch citalopram 2021-0 2021- No [id number] 20mg Take 1 [facility] 20 mg -06-22 tablet by ity of tablet 00:00: 00:00 mouth in [place] 00 :00 the Medical morning. Branch ARIPiprazol 2021-0 2- No [id number] 5mg Take 1 [facility] e (ABILIFY) 8-06-22 tablet by it y of 5 mg tablet 00:00: 00:00 mouth in [place] 00 :00 the Medical morning. Branch ARIPiprazol Yes [id number] 5mg Take 1 [facility] e (ABILIFY) 5-26 tablet by ity of 5 mg tablet 00:00: mouth [place] 00 daily. Medical Branch ARIPiprazol 2021- No [id number] 5mg Take 1 [facility] e (ABILIFY) 5-26 08-24 tablet by it y of 5 mg tablet 00:00: 00:00 mouth [place] 00 :00 daily. Medical Branch citalopram Yes [id number] 20mg Take 1 [facility] 20 mg 5-23 tablet by ity of tablet 00:00: mouth [place] 00 daily. Medical Branch citalopram Yes [id number] 20mg Take 1 [facility] 20 mg 5-23 tablet by ity of tablet 00:00: mouth [place] 00 daily. Medical Branch citalopram 2021- No [id number] 20mg Take 1 [facility] 20 mg 5-23 08-24 tablet by ity of tablet 00:00: 00:00 mouth [place] 00 :00 daily. Medical Branch atorvastati Yes [id number] 80mg Take 1 [facility] n 80 mg 4-26 tablet by ity of tablet 00:00: mouth at [place] 00 bedtime. Medical Branch atorvastati Yes [id number] 80mg Take 1 [facility] n 80 mg 4-26 tablet by ity of tablet 00:00: mouth at [place] 00 bedtime. Medical Branch atorvastati Yes [id number] 80mg Take 1 [facility] n 80 mg 4-26 tablet by ity of tablet 00:00: mouth at [place] 00 bedtime. Medical Branch atorvastati Yes [id number] 80mg Take 1 [facility] n 80 mg 4-26 tablet by ity of tablet 00:00: mouth at [place] 00 bedtime. Medical Branch atorvastati 2021- No [id number] 80mg Take 1 [facility] n 80 mg 4-26 09-27 tablet by ity of tablet 00:00: 00:00 mouth at [place] 00 :00 bedtime. Medical Branch atorvastati 2021- No [id number] 80mg Take 1 [facility] n 80 mg 01-19- tablet by ity of tablet 00:00: 00:00 mouth at [place] 00 :00 bedtime. Medical Branch citalopram 2021- No 20mg Take 20 mg [facility] 20 mg 2-10 02-10 by mouth ity of tablet 15:06: 00:00 daily. [place] 38 :00 [facility] Branch ARIPiprazol 2021- No 5mg Take 5 mg Univers e (ABILIFY) 2-10 02-10 by mouth ity of 5 mg tablet 15:06: 00:00 daily. [place] 38 :00 [facility] Branch aspirin 81 Yes 81mg Take 81 mg U nivers mg EC 2-10 by mouth ity of tablet 14:25: daily. [address] aspirin 81 Yes 81mg Take 81 mg U nivers mg EC 2-10 by mouth ity of tablet 14:25: daily. [address] aspirin 81 Yes 81mg Take 81 mg U nivers mg EC 2-10 by mouth ity of tablet 14:25: daily. [address] aspirin 81 Yes 81mg Take 81 mg U nivers mg EC 2-10 by mouth ity of tablet 14:25: daily. [address] aspirin 81 Yes 81mg Take 81 mg U nivers mg EC 2-10 by mouth ity of tablet 14:25: daily. [address] aspirin 81 Yes 81mg Take 81 mg U nivers mg EC 2-10 by mouth ity of tablet 14:25: daily. [address] citalopram 2021- No [id number] 20mg Take 1 [facility] 20 mg 2-10 05-12 tablet by ity of tablet 00:00: 04:59 mouth [place] 00 :00 daily for Medical 90 days. Branch ARIPiprazol 2021- No [id number] 5mg Take 1 [facility] e (ABILIFY) 2-10 05-12 tablet by it y of 5 mg tablet 00:00: 04:59 mouth [place] 00 :00 daily for Medical 90 days. Branch citalopram 2021- No [id number] 20mg Take 1 [facility] 20 mg 2-10 05-12 tablet by ity of tablet 00:00: 04:59 mouth [place] 00 :00 daily for Medical 90 days. Branch ARIPiprazol 2021- No [id number] 5mg Take 1 [facility] e (ABILIFY) 2-10 05-12 tablet by it y of 5 mg tablet 00:00: 04:59 mouth [place] 00 :00 daily for Medical 90 days. Branch citalopram 2021- No [id number] 20mg Take 1 [facility] 20 mg 2-10 -12 tablet by ity of tablet 00:00: 04:59 mouth [place] 00 :00 daily for Medical 90 days. Branch ARIPiprazol 2021- No [id number] 5mg Take 1 [facility] e (ABILIFY) 2-10 -12 tablet by it y of 5 mg tablet 00:00: 04:59 mouth [place] 00 :00 daily for Medical 90 days. [place] ATORVASTATI Yes [id number] TAKE 1 [facility] N 80 mg 1-20 TABLET BY ity of tablet 00:00: MOUTH [place] 00 EVERYDAY Medical AT BEDTIME Branch ATORVASTATI 0 Yes [id number] TAKE 1 [facility] N 80 mg 1-20 TABLET BY ity of tablet 00:00: MOUTH [place] 00 EVERYDAY Medical AT BEDTIME [place] ATORVASTATI 2021- No [id number] TAKE 1 [facility] N 80 mg 1-20 04-26 TABLET BY ity of tablet 00:00: 00:00 MOUTH [place] 00 :00 EVERYDAY Medical AT BEDTIME [place] TAMSULOSIN 0 Yes [id number] TAKE 1 U nivers 0.4 mg 24 1-14 CAPSULE BY ity of hr capsule 00:00: MOUTH [place] 00 EVERY DAY Medical Branch TAMSULOSIN 0 Yes [id number] TAKE 1 U nivers 0.4 mg 24 1-14 CAPSULE BY ity of hr capsule 00:00: MOUTH [place] 00 EVERY DAY Medical Branch TAMSULOSIN 0 Yes [id number] TAKE 1 U nivers 0.4 mg 24 1-14 CAPSULE BY ity of hr capsule 00:00: MOUTH [place] 00 EVERY DAY Medical Branch TAMSULOSIN 0 Yes [id number] TAKE 1 U nivers 0.4 mg 24 1-14 CAPSULE BY ity of hr capsule 00:00: MOUTH [place] 00 EVERY DAY Medical Branch TAMSULOSIN 2021-0 Yes [id number] TAKE 1 U nivers 0.4 mg 24 1-14 CAPSULE BY ity of hr capsule 00:00: MOUTH [place] 00 EVERY DAY Medical Branch TAMSULOSIN 2021-0 Yes [id number] TAKE 1 U nivers 0.4 mg 24 1-14 CAPSULE BY ity of hr capsule 00:00: MOUTH [place] 00 EVERY DAY Medical Branch TAMSULOSIN 2021-0 2- No [id number] TAKE 1 [facility] 0.4 mg 24 -14 06-22 CAPSULE BY ity of hr capsule 00:00: 00:00 MOUTH [place] 00 :00 EVERY DAY Medical Branch TAMSULOSIN 2021-0 2021- No [id number] TAKE 1 [facility] 0.4 mg 24 10-09 CAPSULE BY ity of hr capsule 00:00: 00:00 MOUTH [place] 00 :00 EVERY DAY Medical Branch GLIMEPIRIDE 2020-09 Yes [id number] TAKE 1 [facility] 1 mg tablet 1-23 TABLET BY ity of 00:00: MOUTH [place] 00 EVERY DAY Medical WITH Branch BREAKFAST GLIMEPIRIDE 2020-09 Yes [id number] TAKE 1 [facility] 1 mg tablet 1-23 TABLET BY ity of 00:00: MOUTH [place] 00 EVERY DAY Medical WITH Branch BREAKFAST GLIMEPIRIDE 2020-09 Yes [id number] TAKE 1 [facility] 1 mg tablet 1-23 TABLET BY ity of 00:00: MOUTH [place] 00 EVERY DAY Medical WITH Branch BREAKFAST GLIMEPIRIDE 2020-09 Yes [id number] TAKE 1 [facility] 1 mg tablet 1-23 TABLET BY ity of 00:00: MOUTH [place] 00 EVERY DAY Medical WITH Branch BREAKFAST GLIMEPIRIDE 2020- Yes [id number] TAKE 1 [facility] 1 mg tablet 1-23 TABLET BY ity of 00:00: MOUTH [place] 00 EVERY DAY Medical WITH Branch BREAKFAST GLIMEPIRIDE 2020-09 Yes [id number] TAKE 1 [facility] 1 mg tablet 1-23 TABLET BY ity of 00:00: MOUTH [place] 00 EVERY DAY Medical WITH Branch BREAKFAST GLIMEPIRIDE 2020-09- No [id number] TAKE 1 [facility] 1 mg tablet 1-23 - TABLET BY it y of 00:00: 00:00 MOUTH [place] 00 :00 EVERY DAY Medical WITH Branch BREAKFAST GLIMEPIRIDE 2020-09- No [id number] TAKE 1 [facility] 1 mg tablet 10-18- TABLET BY it y of 00:00: 00:00 [...] 00 :00 EVERY DAY Medical Branch famotidine Yes [id number] 20mg Take 1 [facility] 20 mg 9-23 tablet by ity of tablet 00:00: mouth [address] [place] [address] 00 (two) Medical times Branch daily. famotidine Yes [id number] 20mg Take 1 [facility] 20 mg 9-23 tablet by ity of tablet 00:00: [address] 00 (two) Medical times Branch daily. famotidine Yes [id number] 20mg Take 1 [facility] 20 mg 9-23 tablet by ity of tablet 00:00: mouth [address] [place] [address] 00 (two) Medical times Branch daily. famotidine Yes [id number] 20mg Take 1 [facility] 20 mg 9-23 tablet by ity of tablet 00:00: mouth [address] [place] [address] 00 (two) Medical times Branch daily. famotidine 2020-0 Yes [id number] 20mg Take 1 [facility] 20 mg 9-23 tablet by ity of tablet 00:00: mouth 2 [place] 00 (two) Medical times Branch daily. famotidine 2020-0 Yes [id number] 20mg Take 1 [facility] 20 mg 9-23 tablet by ity of tablet 00:00: mouth 2 [place] 00 (two) Medical times Branch daily. famotidine 2020-0 2- No [id number] 20mg Take 1 [facility] 20 mg 9-23 09-27 tablet by ity of tablet 00:00: 00:00 mouth 2 [place] 00 :00 (two) Medical times Branch daily. famotidine 2020-0 2- No [id number] 20mg Take 1 [facility] 20 mg 9-23 09-27 tablet by ity of tablet 00:00: 00:00 mouth 2 [place] 00 :00 (two) Medical times Branch daily. clopidogreL 2020-0 Yes [id number] 75mg Take 1 [facility] 75 mg 7-28 tablet by ity of tablet 00:00: mouth [place] 00 daily. Medical Branch clopidogreL 1-0 Yes [id number] 75mg Take 1 [facility] 75 mg 7-28 tablet by ity of tablet 00:00: mouth [place] 00 daily. Medical Branch clopidogreL 2021-0 Yes [id number] 75mg Take 1 [facility] 75 mg 7-28 tablet by ity of tablet 00:00: mouth [place] 00 daily. Medical Branch clopidogreL 2021-0 Yes [id number] 75mg Take 1 [facility] 75 mg 7-28 tablet by ity of tablet 00:00: mouth [place] 00 daily. Medical Branch clopidogreL 2021-0 Yes [id number] 75mg Take 1 [facility] 75 mg 7-28 tablet by ity of tablet 00:00: mouth [place] 00 daily. Medical Branch clopidogreL 2021-0 Yes [id number] 75mg Take 1 [facility] 75 mg 7-28 tablet by ity of tablet 00:00: mouth [place] 00 daily. Medical Branch clopidogreL 2021-0 2022- No [id number] 75mg Take 1 [facility] 75 mg 7-28 09-27 tablet by ity of tablet 00:00: 00:00 mouth [place] 00 :00 daily. Medical Branch clopidogreL 2021-0 2022- No [id number] 75mg Take 1 [facility] 75 mg 7-28 09- tablet by ity of tablet 00:00: 00:00 mouth [place] 00 :00 daily. Medical Branch amLODIPine 0 Yes [id number] 10mg Take 1 U nivers 10 mg 7-07 tablet by ity of tablet 00:00: mouth [place] 00 daily. Medical Branch amLODIPine 0 Yes [id number] 10mg Take 1 U nivers 10 mg 7-07 tablet by ity of tablet 00:00: mouth [place] 00 daily. Medical Branch amLODIPine 0 Yes [id number] 10mg Take 1 U nivers 10 mg 7-07 tablet by ity of tablet 00:00: mouth [place] 00 daily. Medical Branch amLODIPine 0 Yes [id number] 10mg Take 1 U nivers 10 mg 7-07 tablet by ity of tablet 00:00: mouth [place] 00 daily. Medical Branch amLODIPine Yes [id number] 10mg Take 1 U nivers 10 mg 7-07 tablet by ity of tablet 00:00: mouth [place] 00 daily. Medical Branch amLODIPine Yes [id number] 10mg Take 1 U nivers 10 mg 7-07 tablet by ity of tablet 00:00: mouth [place] 00 daily. Medical Branch amLODIPine 0 2021- No [id number] 10mg Take 1 [facility] 10 mg 7-06-22 tablet by ity of tablet 00:00: 00:00 mouth [place] 00 :00 daily. Medical Branch amLODIPine 0 2- No [id number] 10mg Take 1 [facility] 10 mg -27 tablet by ity of tablet 00:00: [...] Immunizations Ordered Filled Immunization Date Status Comments [facility] e Immunization Name Name SARS-COV-2 [...] 14 YRS+, Branch BIVALENT 0.3ML, IM, (PFIZER ADNERSON TOP) SARS-COV-2 COVID-19 2022-06-22 Completed Unive rsity [...] SARS-COV-2 COVID-19 2022-06-22 Completed Unive rsity of EKN-SUCROSE 00:00:00 [place] [facility] VACCINE 12 YRS+, Branch BIVALENT 0.3ML, IM, (PFIZER ANDERSON TOP) SARS-COV-2 COVID-19 2021-01-10 Completed Unive rsity of PFIZER VACCINE 00:00:00 [facility] SARS-COV-2 COVID-19 2021-01-10 Completed Unive rsity of PFIZER VACCINE 00:00:00 [facility] SARS-COV-2 COVID-19 2021-01-10 Completed Unive rsity of PFIZER VACCINE 00:00:00 [facility] SARS-COV-2 COVID-19 2021-01-10 Completed Unive rsity of PFIZER VACCINE 00:00:00 [facility] SARS-COV-2 COVID-19 2021-01-10 Completed Unive rsity of PFIZER VACCINE 00:00:00 [facility] SARS-COV-2 COVID-19 2021-01-10 Completed Unive rsity of PFIZER VACCINE 00:00:00 [facility] SARS-COV-2 COVID-19 2021-01-10 Completed Unive rsity of PFIZER VACCINE 00:00:00 [facility] Branch SARS-COV-2 COVID-19 2021-01-10 Completed Unive rsity of PFIZER VACCINE 00:00:00 [facility] Branch SARS-COV-2 COVID-19 2021-01-10 Completed Unive rsity of PFIZER VACCINE 00:00:00 [facility] Branch SARS-COV-2 COVID-19 2021-01-10 Completed Unive rsity of PFIZER VACCINE 00:00:00 [facility] Branch SARS-COV-2 COVID-19 2021-01-10 Completed Unive rsity of PFIZER VACCINE 00:00:00 [facility] Branch SARS-COV-2 COVID-19 2021-01-10 Completed Unive rsity of PFIZER VACCINE 00:00:00 [facility] Branch SARS-COV-2 COVID-19 2021-01-10 Completed Unive rsity of PFIZER VACCINE 00:00:00 [facility] Branch SARS-COV-2 COVID-19 2021-01-10 Completed Unive rsity of PFIZER VACCINE 00:00:00 [facility] Branch SARS-COV-2 COVID-19 2021-01-10 Completed Unive rsity of PFIZER VACCINE 00:00:00 [facility] Branch SARS-COV-2 COVID-19 2021-01-10 Completed Unive rsity of PFIZER VACCINE 00:00:00 [facility] Branch SARS-COV-2 COVID-19 2021-01-10 Completed Unive rsity of PFIZER VACCINE 00:00:00 [facility] Branch SARS-COV-2 COVID-19 2021-01-10 Completed Unive rsity of PFIZER VACCINE 00:00:00 [facility] Branch SARS-COV-2 COVID-19 2021-01-10 Completed Unive rsity of PFIZER VACCINE 00:00:00 [facility] Branch SARS-COV-2 COVID-19 2021-01-10 Completed Unive rsity of PFIZER VACCINE 00:00:00 [facility] Branch SARS-COV-2 COVID-19 2021-01-10 Completed Unive rsity of PFIZER VACCINE 00:00:00 [facility] Branch SARS-COV-2 COVID-19 2021-01-10 Completed Unive rsity of PFIZER VACCINE 00:00:00 [facility] Branch SARS-COV-2 COVID-19 2021-01-10 Completed Unive rsity of PFIZER VACCINE 00:00:00 [facility] Branch SARS-COV-2 COVID-19 2021-01-10 Completed Unive rsity of PFIZER VACCINE 00:00:00 [place] [facility] Branch SARS-COV-2 COVID-19 2021-01-10 Completed Unive rsity of PFIZER VACCINE 00:00:00 [facility] Branch SARS-COV-2 COVID-19 2021-01-10 Completed Unive rsity of PFIZER VACCINE 00:00:00 [place] [facility] Branch SARS-COV-2 COVID-19 2021-01-10 Completed Unive rsity of PFIZER VACCINE 00:00:00 [facility] Branch SARS-COV-2 COVID-19 2021-01-10 Completed Unive rsity of PFIZER VACCINE 00:00:00 [facility] Branch SARS-COV-2 COVID-19 2021-01-10 Completed Unive rsity of PFIZER VACCINE 00:00:00 [facility] Branch SARS-COV-2 COVID-19 2021-01-10 Completed Unive rsity of PFIZER VACCINE 00:00:00 [facility] Branch SARS-COV-2 COVID-19 2021-01-10 Completed Unive rsity of PFIZER VACCINE 00:00:00 [facility] Branch SARS-COV-2 COVID-19 2021-01-10 Completed Unive rsity of PFIZER VACCINE 00:00:00 [facility] Branch SARS-COV-2 COVID-19 2021-01-10 Completed Unive rsity of PFIZER VACCINE 00:00:00 [facility] Branch SARS-COV-2 COVID-19 2021-01-10 Completed Unive rsity of PFIZER VACCINE 00:00:00 [facility] Branch SARS-COV-2 COVID-19 2021-01-10 Completed Unive rsity of PFIZER VACCINE 00:00:00 [facility] Branch SARS-COV-2 COVID-19 2021-01-10 Completed Unive rsity of PFIZER VACCINE 00:00:00 [facility] Branch SARS-COV-2 COVID-19 2021-01-10 Completed Unive rsity of PFIZER VACCINE 00:00:00 [facility] Branch SARS-COV-2 COVID-19 2021-01-10 Completed Unive rsity of PFIZER VACCINE 00:00:00 [facility] Branch SARS-COV-2 COVID-19 2021-01-10 Completed Unive rsity of PFIZER VACCINE 00:00:00 [facility] Branch SARS-COV-2 COVID-19 2021-01-10 Completed Unive rsity of PFIZER VACCINE 00:00:00 [facility] Branch SARS-COV-2 COVID-19 2021-01-10 Completed Unive rsity of PFIZER VACCINE 00:00:00 [facility] Branch SARS-COV-2 COVID-19 2021-01-10 Completed Unive rsity of PFIZER VACCINE 00:00:00 [facility] Branch SARS-COV-2 COVID-19 2021-01-10 Completed Unive rsity of PFIZER VACCINE 00:00:00 [facility] Branch SARS-COV-2 COVID-19 2021-01-10 Completed Unive rsity of PFIZER VACCINE 00:00:00 [facility] Branch SARS-COV-2 COVID-19 2021-01-10 Completed Unive rsity of PFIZER VACCINE 00:00:00 [facility] Branch SARS-COV-2 COVID-19 2021-01-10 Completed Unive rsity of PFIZER VACCINE 00:00:00 [facility] Branch SARS-COV-2 COVID-19 2021-01-10 Completed Unive rsity of PFIZER VACCINE 00:00:00 [facility] Branch SARS-COV-2 COVID-19 2021-01-10 Completed Unive rsity of PFIZER VACCINE 00:00:00 [facility] Branch SARS-COV-2 COVID-19 2021-01-10 Completed Unive rsity of PFIZER VACCINE 00:00:00 [facility] Branch SARS-COV-2 COVID-19 2021-01-10 Completed Unive rsity of PFIZER VACCINE 00:00:00 [facility] Branch SARS-COV-2 COVID-19 2021-01-10 Completed Unive rsity of PFIZER VACCINE 00:00:00 [facility] Branch SARS-COV-2 COVID-19 2021-01-10 Completed Unive rsity of PFIZER VACCINE 00:00:00 [facility] Branch SARS-COV-2 COVID-19 2021-01-10 Completed Unive rsity of PFIZER VACCINE 00:00:00 [facility] Branch SARS-COV-2 COVID-19 2021-01-10 Completed Unive rsity of PFIZER VACCINE 00:00:00 [facility] Branch SARS-COV-2 COVID-19 2021-01-10 Completed Unive rsity of PFIZER VACCINE 00:00:00 [facility] Branch SARS-COV-2 COVID-19 2020-12-20 Completed Unive rsity of PFIZER VACCINE 00:00:00 [facility] Branch SARS-COV-2 COVID-19 2020-12-20 Completed Unive rsity of PFIZER VACCINE 00:00:00 [facility] Branch SARS-COV-2 COVID-19 2020-12-20 Completed Unive rsity of PFIZER VACCINE 00:00:00 [facility] Branch SARS-COV-2 COVID-19 2020-12-20 Completed Unive rsity of PFIZER VACCINE 00:00:00 [facility] Branch SARS-COV-2 COVID-19 2020-12-20 Completed Unive rsity of PFIZER VACCINE 00:00:00 [facility] Branch SARS-COV-2 COVID-19 2020-12-20 Completed Unive rsity of PFIZER VACCINE 00:00:00 [facility] Branch SARS-COV-2 COVID-19 2020-12-20 Completed Unive rsity of PFIZER VACCINE 00:00:00 [facility] Branch SARS-COV-2 COVID-19 2020-12-20 Completed Unive rsity of PFIZER VACCINE 00:00:00 [facility] Branch SARS-COV-2 COVID-19 2020-12-20 Completed Unive rsity of PFIZER VACCINE 00:00:00 [facility] Branch SARS-COV-2 COVID-19 2020-12-20 Completed Unive rsity of PFIZER VACCINE 00:00:00 [facility] Branch SARS-COV-2 COVID-19 2020-12-20 Completed Unive rsity of PFIZER VACCINE 00:00:00 [facility] Branch SARS-COV-2 COVID-19 2020-12-20 Completed Unive rsity of PFIZER VACCINE 00:00:00 [facility] Branch SARS-COV-2 COVID-19 2020-12-20 Completed Unive rsity of PFIZER VACCINE 00:00:00 [facility] Branch SARS-COV-2 COVID-19 2020-12-20 Completed Unive rsity of PFIZER VACCINE 00:00:00 [facility] Branch SARS-COV-2 COVID-19 2020-12-20 Completed Unive rsity of PFIZER VACCINE 00:00:00 [facility] Branch SARS-COV-2 COVID-19 2020-12-20 Completed Unive rsity of PFIZER VACCINE 00:00:00 [facility] Branch SARS-COV-2 COVID-19 2020-12-20 Completed Unive rsity of PFIZER VACCINE 00:00:00 [facility] Branch SARS-COV-2 COVID-19 2020-12-20 Completed Unive rsity of PFIZER VACCINE 00:00:00 [facility] Branch SARS-COV-2 COVID-19 2020-12-20 Completed Unive rsity of PFIZER VACCINE 00:00:00 [facility] Branch SARS-COV-2 COVID-19 2020-12-20 Completed Unive rsity of PFIZER VACCINE 00:00:00 [facility] Branch SARS-COV-2 COVID-19 2020-12-20 Completed Unive rsity of PFIZER VACCINE 00:00:00 [facility] Branch SARS-COV-2 COVID-19 2020-12-20 Completed Unive rsity of PFIZER VACCINE 00:00:00 [facility] Branch SARS-COV-2 COVID-19 2020-12-20 Completed Unive rsity of PFIZER VACCINE 00:00:00 [facility] Branch SARS-COV-2 COVID-19 2020-12-20 Completed Unive rsity of PFIZER VACCINE 00:00:00 [facility] Branch SARS-COV-2 COVID-19 2020-12-20 Completed Unive rsity of PFIZER VACCINE 00:00:00 [facility] Branch SARS-COV-2 COVID-19 2020-12-20 Completed Unive rsity of PFIZER VACCINE 00:00:00 [facility] Branch SARS-COV-2 COVID-19 2020-12-20 Completed Unive rsity of PFIZER VACCINE 00:00:00 [facility] Branch SARS-COV-2 COVID-19 2020-12-20 Completed Unive rsity of PFIZER VACCINE 00:00:00 [facility] Branch SARS-COV-2 COVID-19 2020-12-20 Completed Unive rsity of PFIZER VACCINE 00:00:00 [facility] Branch SARS-COV-2 COVID-19 2020-12-20 Completed Unive rsity of PFIZER VACCINE 00:00:00 [facility] Branch SARS-COV-2 COVID-19 2020-12-20 Completed Unive rsity of PFIZER VACCINE 00:00:00 [facility] Branch SARS-COV-2 COVID-19 2020-12-20 Completed Unive rsity of PFIZER VACCINE 00:00:00 [facility] Branch SARS-COV-2 COVID-19 2020-12-20 Completed Unive rsity of PFIZER VACCINE 00:00:00 [facility] Branch SARS-COV-2 COVID-19 2020-12-20 Completed Unive rsity of PFIZER VACCINE 00:00:00 [facility] Branch SARS-COV-2 COVID-19 2020-12-20 Completed Unive rsity of PFIZER VACCINE 00:00:00 [facility] Branch SARS-COV-2 COVID-19 2020-12-20 Completed Unive rsity of PFIZER VACCINE 00:00:00 [facility] Branch SARS-COV-2 COVID-19 2020-12-20 Completed Unive rsity of PFIZER VACCINE 00:00:00 [facility] Branch SARS-COV-2 COVID-19 2020-12-20 Completed Unive rsity of PFIZER VACCINE 00:00:00 [facility] Branch SARS-COV-2 COVID-19 2020-12-20 Completed Unive rsity of PFIZER VACCINE 00:00:00 [facility] Branch SARS-COV-2 COVID-19 2020-12-20 Completed Unive rsity of PFIZER VACCINE 00:00:00 [facility] Branch SARS-COV-2 COVID-19 2020-12-20 Completed Unive rsity of PFIZER VACCINE 00:00:00 [facility] Branch SARS-COV-2 COVID-19 2020-12-20 Completed Unive rsity of PFIZER VACCINE 00:00:00 [facility] Branch SARS-COV-2 COVID-19 2020-12-20 Completed Unive rsity of PFIZER VACCINE 00:00:00 [facility] Branch SARS-COV-2 COVID-19 2020-12-20 Completed Unive rsity of PFIZER VACCINE 00:00:00 [facility] Branch SARS-COV-2 COVID-19 2020-12-20 Completed Unive rsity of PFIZER VACCINE 00:00:00 [facility] Branch SARS-COV-2 COVID-19 2020-12-20 Completed Unive rsity of PFIZER VACCINE 00:00:00 [facility] SARS-COV-2 COVID-19 2020-12-20 Completed Unive rsity of PFIZER VACCINE 00:00:00 [facility] SARS-COV-2 COVID-19 2020-12-20 Completed Unive rsity of PFIZER VACCINE 00:00:00 [facility] SARS-COV-2 COVID-19 2020-12-20 Completed Unive rsity of PFIZER VACCINE 00:00:00 [facility] SARS-COV-2 COVID-19 2020-12-20 Completed Unive rsity of PFIZER VACCINE 00:00:00 [facility] SARS-COV-2 COVID-19 2020-12-20 Completed Unive rsity of PFIZER VACCINE 00:00:00 [facility] SARS-COV-2 COVID-19 2020-12-20 Completed Unive rsity of PFIZER VACCINE 00:00:00 [facility] SARS-COV-2 COVID-19 2020-12-20 Completed Unive rsity of PFIZER VACCINE 00:00:00 [facility] SARS-COV-2 COVID-19 2020-12-20 Completed Unive rsity of PFIZER VACCINE 00:00:00 [facility] SARS-COV-2 COVID-19 2020-12-20 Completed Unive rsity of PFIZER VACCINE 00:00:00 [facility] Influenza Virus 2020-06-15 Completed Universit y of Vaccine 00:00:00 [facility] Influenza Virus 2020-06-15 Completed Universit y of Vaccine 00:00:00 [facility] Influenza Virus 2020-06-15 Completed Universit y of Vaccine 00:00:00 [facility] Influenza Virus 2020-06-15 Completed Universit y of Vaccine 00:00:00 [facility] Influenza Virus 2020-06-15 Completed Universit y of Vaccine 00:00:00 [facility] Influenza Virus 2020-06-15 Completed Universit y of Vaccine 00:00:00 [facility] Influenza Virus 2020-06-15 Completed Universit y of Vaccine 00:00:00 [facility] Influenza Virus 2020-06-15 Completed Universit y of Vaccine 00:00:00 [facility] Influenza Virus 2020-06-15 Completed Universit y of Vaccine 00:00:00 [facility] Influenza Virus 2020-06-15 Completed Universit y of Vaccine 00:00:00 [facility] Influenza Virus 2020-06-15 Completed Universit y of Vaccine 00:00:00 [facility] Influenza Virus 2020-06-15 Completed Universit y of Vaccine 00:00:00 [facility] Influenza Virus 2020-06-15 Completed Universit y of Vaccine 00:00:00 [facility] Influenza Virus 2020-06-15 Completed Universit y of Vaccine 00:00:00 [facility] Influenza Virus 2020-06-15 Completed Universit y of Vaccine 00:00:00 [facility] Influenza Virus 2020-06-15 Completed Universit y of Vaccine 00:00:00 [facility] Influenza Virus 2020-06-15 Completed Universit y of Vaccine 00:00:00 [facility] Influenza Virus 2020-06-15 Completed Universit y of Vaccine 00:00:00 [facility] Influenza Virus 2020-06-15 Completed Universit y of Vaccine 00:00:00 [facility] Influenza Virus 2020-06-15 Completed Universit y of Vaccine 00:00:00 [facility] Influenza Virus 2020-06-15 Completed Universit y of Vaccine 00:00:00 [facility] Influenza Virus 2020-06-15 Completed Universit y of Vaccine 00:00:00 [facility] Influenza Virus 2020-06-15 Completed Universit y of Vaccine 00:00:00 [facility] Influenza Virus 2020-06-15 Completed Universit y of Vaccine 00:00:00 [facility] Influenza Virus 2020-06-15 Completed Universit y of Vaccine 00:00:00 [facility] Influenza Virus 2020-06-15 Completed Universit y of Vaccine 00:00:00 [facility] Influenza Virus 2020-06-15 Completed Universit y of Vaccine 00:00:00 [facility] Influenza Virus 2020-06-15 Completed Universit y of Vaccine 00:00:00 [facility] Influenza Virus 2020-06-15 Completed Universit y of Vaccine 00:00:00 [facility] Influenza Virus 2020-06-15 Completed Universit y of Vaccine 00:00:00 [facility] Influenza Virus 2020-06-15 Completed Universit y of Vaccine 00:00:00 [facility] Influenza Virus 2020-06-15 Completed Universit y of Vaccine 00:00:00 [facility] Influenza Virus 2020-06-15 Completed Universit y of Vaccine 00:00:00 [facility] Influenza Virus 2020-06-15 Completed Universit y of Vaccine 00:00:00 [facility] Influenza Virus 2020-06-15 Completed Universit y of Vaccine 00:00:00 [facility] Influenza Virus 2020-06-15 Completed Universit y of Vaccine 00:00:00 [facility] Influenza Virus 2020-06-15 Completed Universit y of Vaccine 00:00:00 [facility] Influenza Virus 2020-06-15 Completed Universit y of Vaccine 00:00:00 [facility] Influenza Virus 2020-06-15 Completed Universit y of Vaccine 00:00:00 [facility] Influenza Virus 2020-06-15 Completed Universit y of Vaccine 00:00:00 [facility] Influenza Virus 2020-06-15 Completed Universit y of Vaccine 00:00:00 [facility] Influenza Virus 2020-06-15 Completed Universit y of Vaccine 00:00:00 [facility] Influenza Virus 2020-06-15 Completed Universit y of Vaccine 00:00:00 [facility] Influenza Virus 2020-06-15 Completed Universit y of Vaccine 00:00:00 [facility] Influenza Virus 2020-06-15 Completed Universit y of Vaccine 00:00:00 [facility] Influenza Virus 2020-06-15 Completed Universit y of Vaccine 00:00:00 [facility] Influenza Virus 2020-06-15 Completed Universit y of Vaccine 00:00:00 [facility] Influenza Virus 2020-06-15 Completed Universit y of Vaccine 00:00:00 [facility] Influenza Virus 2020-06-15 Completed Universit y of Vaccine 00:00:00 [facility] Influenza Virus 2020-06-15 Completed Universit y of Vaccine 00:00:00 [facility] Influenza Virus 2020-06-15 Completed Universit y of Vaccine 00:00:00 [facility] Influenza Virus 2020-06-15 Completed Universit y of Vaccine 00:00:00 [facility] Influenza Virus 2020-06-15 Completed Universit y of Vaccine 00:00:00 [facility] Influenza Virus 2020-06-15 Completed Universit y of Vaccine 00:00:00 [facility] Influenza Virus 2020-06-15 Completed Universit y of Vaccine 00:00:00 [facility] TDAP 2018-05-30 Completed University of 00:00:00 [facility] TDAP 2018-05-30 Completed University of 00:00:00 [facility] TDAP 2018-05-30 Completed [facility] of 00:00:00 [place] [facility] TDAP 2018-05-30 Completed University of 00:00:00 [facility] TDAP 2018-05-30 Completed University of 00:00:00 [facility] TDAP 2018-05-30 Completed University of 00:00:00 [facility] TDAP 2018-05-30 Completed University of 00:00:00 [facility] TDAP 2018-05-30 Completed University of 00:00:00 [facility] TDAP 2018-05-30 Completed University of 00:00:00 [facility] TDAP 2018-05-30 Completed University of 00:00:00 [facility] TDAP 2018-05-30 Completed University of 00:00:00 [facility] TDAP 2018-05-30 Completed University of 00:00:00 [facility] TD 2018-05-30 Completed University of 00:00:00 [facility] TD 2018-05-30 Completed University of 00:00:00 [facility] 2018-05-30 Completed University of 00:00:00 [facility] 2018-05-30 Completed University of 00:00:00 [facility] TD 2018-05-30 Completed University of 00:00:00 [facility] TD 2018-05-30 Completed University of 00:00:00 [facility] TD 2018-05-30 Completed University of 00:00:00 [facility] TD 2018-05-30 Completed University of 00:00:00 [facility] TD 2018-05-30 Completed University of 00:00:00 [facility] 2018-05-30 Completed University of 00:00:00 [facility] 2018-05-30 Completed University of 00:00:00 [facility] TD 2018-05-30 Completed University of 00:00:00 [facility] TD 2018-05-30 Completed University of 00:00:00 [facility] 2018-05-30 Completed University of 00:00:00 [facility] 2018-05-30 Completed University of 00:00:00 [facility] 2018-05-30 Completed University of 00:00:00 [facility] Vital Signs Vital Name Observation Time Observation Value Comments Source HEIGHT 2023-03-31 05:00:00 165 cm WEIGHT 2023-03-31 05:00:00 94.802 kg HEIGHT 2023-03-31 05:00:00 165 cm WEIGHT 2023-03-31 05:00:00 94.802 kg HEIGHT 2023-03-31 05:00:00 165 cm WEIGHT 2023-03-31 05:00:00 94.802 kg Systolic blood 2023-02-18 20:13:00 138 mm[Hg] Univer sity of pressure [facility] Diastolic blood 2023-02-18 20:13:00 85 mm[Hg] Unive rsity of pressure [facility] Heart rate 2023-02-18 20:13:00 119 /min [...] /min University of Arterial blood by [place] christelle Pulse oximetry Branch Systolic blood 2023-02-01 [...] 96 /min University of Arterial blood by [employer] christelle Pulse oximetry Branch Systolic blood 2023-01-12 [...] 97 /min University of Arterial blood by [facility] christelle Pulse oximetry Branch Systolic blood 2022-09-06 [...] 98 /min University of Arterial blood by [facility] christelle Pulse oximetry Branch Systolic blood 2022-09-03 17:00:00 138 mm[Hg] Univer sity of pressure [facility] Diastolic blood 2022-09-03 17:00:00 80 mm[Hg] Unive rsity of pressure [facility] Heart rate 2022-09-03 16:59:00 89 /min [facility]i ty [facility] Body temperature 2022-09-03 16:59:00 36.78 [place] Univ ersity of [facility] Body height 2022-09-03 16:59:00 165.1 cm [facility] Body weight 2022-09-03 16:59:00 107.684 kg [facility] BMI 2022-09-03 16:59:00 39.51 kg/m2 [facility] Oxygen saturation in 2022-09-03 16:59:00 97 /min [facility] [place] [facility]xim[facility] Systolic blood 2022-08-28 17:20:00 135 mm[Hg] Univer sity of pressure [facility] Diastolic blood 2022-08-28 17:20:00 94 mm[Hg] Unive rsity of pressure [facility] Heart rate 2022-08-28 17:20:00 83 /min [facility] Body temperature 2022-08-28 17:20:00 36 [place] Univ [facility] of [place] [facility] Respiratory rate 2022-08-28 17:20:00 18 /min Univ ersity of [facility] Oxygen saturation in 2022-08-28 17:20:00 96 /min University of Arterial blood by [facility] christelle Pulse oximetry Branch Body height 2022-08-27 07:30:00 165.1 cm [facility] Body weight 2022-08-27 07:30:00 108.364 kg [facility] BMI 2022-08-27 07:30:00 39.76 kg/m2 [facility] Systolic blood 2022-08-27 20:00:00 143 mm[Hg] Univer sity of pressure [facility] Diastolic blood 2022-08-27 20:00:00 80 mm[Hg] Unive rsity of pressure [facility] Respiratory rate 2022-08-27 20:00:00 23 /min Univ ersity of [facility] Oxygen saturation in 2022-08-27 20:00:00 91 /min [facility] blood [facility] [place] [facility] Heart rate 2022-08-27 18:24:00 100 /min [facility] Body temperature 2022-08-27 14:00:00 36.28 [place] Univ ers[facility] of [facility] Body height 2022-08-27 07:30:00 165.1 cm [facility] Body weight 2022-08-27 07:30:00 108.364 [...] /min University of Arterial blood by [place] [facility] P[facility] oxim[facility] Branch Systolic blood 2022-07-27 [...] 96 /min University of Arterial blood by [employer] christelle Pulse oximetry Branch Systolic blood 2022-06-22 16:03:00 133 mm[Hg] Univer sity of pressure [facility] Diastolic blood 2022-06-22 16:03:00 86 mm[Hg] Unive rsity of pressure [facility] Heart rate 2022-06-22 16:02:00 85 /min [facility] Body height 2022-06-22 16:02:00 165.1 cm [facility] [place] [facility] [place] Body weight 2022-06-22 16:02:00 105.28 kg [facility] [place] [facility] [place] BMI 2022-06-22 16:02:00 38.62 kg/m2 Universi ty of [facility] Oxygen saturation in 2022-06-22 16:02:00 97 /min University of Arterial blood by [facility] Pulse oximetry Branch Systolic blood 2021-11-05 20:27:00 153 mm[Hg] Univer [facility]ity of pressure [facility] [place] Diastolic blood 2021-11-05 20:27:00 81 mm[Hg] Unive rsity of pressure [facility] Heart rate 2021-11-05 20:26:00 102 /min [facility] [place] Body height 2021-11-05 20:26:00 165.1 cm [facility] [place] [facility] [place] Body weight 2021-11-05 20:26:00 109.272 kg Universi ty of [facility] BMI 2021-11-05 20:26:00 40.09 kg/m2 [facility] [place] [facility] [place] Oxygen saturation in 2021-11-05 20:26:00 98 /min University of Arterial blood by [facility] Pulse oximetry Branch Systolic blood 2023-04-06 16:00:00 132 mm[Hg] [facility] Diastolic blood 2023-04-06 16:00:00 75 mm[Hg] [facility] Heart rate 2023-04-06 16:00:00 83 /min [facility] Body temperature 2023-04-06 16:00:00 36.61 [place] [facility] Respiratory rate 2023-04-06 16:00:00 18 /min [facility] Oxygen saturation in 2023-04-06 16:00:00 98 /min [facility] Arterial blood by Medical Ce nter Pulse oximetry Body height 2023-03-31 05:00:00 165 cm [facility] Body weight 2023-03-31 05:00:00 94.802 kg [facility] BMI 2023-03-31 05:00:00 34.82 kg/m2 [facility] Procedures Procedure Date / Time Performing Clinician Source Performed POCT-GLUCOSE METER 2023-04-06 17:39:00 Dorothy Schneider [facility] POCT-GLUCOSE METER 2023-04-06 12:33:[address] [facility] POCT-GLUCOSE METER 2023-04-06 08:34:00 [facility] W/[facility]T COUNT & AUTO 2023-04-06 04:15:00 Maykel Hubbard [facility] BASIC METABOLIC PANEL 2023-04-06 04:15:[address] [facility] CALCIUM, IONIZED 2023-04-06 04:15:00 Stevie [facility] PHOSPHORUS 2023-04-06 04:15:00 [facility] CBC W/PLT COUNT & AUTO 2023-04-06 04:15:00 Maykel Hubbard [facility] Center MAGNESIUM 2023-04-06 04:15:00 Stevie [facility] POCT-GLUCOSE METER 2023-04-05 21:17:[address] [facility] POCT-GLUCOSE METER 2023-04-05 13:37:00 [facility]SE [facility] 2023-04-05 09:44:00 [facility] W/PLT COUNT & AUTO 2023-04-05 03:58:00 Maykel Hubbard [facility] BASIC METABOLIC PANEL 2023-04-05 03:58:00 [facility] W/PLT COUNT & AUTO 2023-04-05 03:58:00 Maykel Hubbard I [facility] POCT-GLUCOSE METER 2023-04-04 21:43:00 [facility] POCT-GLUCOSE METER 2023-04-04 17:12:[address] [facility] POCT-GLUCOSE METER 2023-04-04 13:02:[address] [facility] POCT-GLUCOSE METER 2023-04-04 07:18:[address] [facility] POCT-GLUCOSE METER 2023-04-03 16:22:[address] [facility] POCT-GLUCOSE METER 2023-04-03 12:53:[address] [facility] POCT-GLUCOSE METER 2023-04-03 08:08:[address] [facility] CBC W/PLT COUNT & AUTO 2023-04-03 04:14[facility] 2023-04-03 04:14:00 Victoria [facility] MAGNESIUM 2023-04-03 04:14:00 Victoria [facility] CBC W/PLT COUNT & AUTO 2023-04-03 04:14:00 [facility] PO[facility]UCOSE METER 2023-04-02 21:35:[address] [facility] POCT-GLUCOSE METER 2023-04-02 17:19:[address] [facility] POCT-GLUCOSE METER 2023-04-02 11:56:[address] [facility] POCT-GLUCOSE METER 2023-04-02 07:53:[address] [facility] CBC W/PLT COUNT & AUTO 2023-04-02 03:34:00 [facility]OLIC PANEL 2023-04-02 03:34:00 Victoria [facility] MAGNESIUM 2023-04-02 03:34:00 Victoria [facility] CBC W/PLT COUNT & AUTO 2023-04-02 03:34:00 Thanh Kessler [facility] DIFFERENTIAL [facility] POCT-GLUCOSE METER 2023-04-01 21:42:00 Maykel Hubbard [facility] POCT-GLUCOSE METER 2023-04-01 16:39:00 Maykel Hubbard [facility] CAROTID DOPPLER BILATERAL 2023-04-01 16:00:00 Elizabeth Gordillo [facility] STRESS ECHO WITH CONTRAST 2023-04-01 15:11:52 Brooks Wilkins [facility] 2D ECHO W/ DOPPLER 2023-04-01 14:20:00 Thanh Kessler [facility] (CW/PW/COLOR) [facility] COPPER 2023-04-01 11:27:00 Magaly [facility] HC LAB HIV-1 AG W/HIV-1&2 2023-04-01 10:24:00 Dedrick [facility] VITAMIN B12 2023-04-01 10:24:00 Magaly [facility] METHYLMALONIC ACID 2023-04-01 10:24:00 Magaly [facility] POCT-GLUCOSE METER 2023-04-01 10:07:00 Maykel Hubbard [facility] CTA CAROTID 2023-04-01 05:31:08 Farideh [facility] CTA BRAIN 2023-04-01 05:30:03 Farideh [facility] CBC W/PLT COUNT & AUTO 2023-04-01 04:47:00 Victoria Thanh [facility] DIFFERENTIAL [facility] BASIC METABOLIC PANEL 2023-04-01 04:47:00 Thanh Kessler [facility] MAGNESIUM 2023-04-01 04:47:00 Victoria Thanh [facility] CBC W/PLT COUNT & AUTO 2023-04-01 04:47:00 Victoria [facility] DIFFERENTIAL [facility] CALCIUM, IONIZED 2023-04-01 04:47:00 [facility] PHOSPHORUS 2023-04-01 04:47:00 [facility]SE [facility] 2023-03-31 22:49[facility]00 [facility] 2023-03-31 17:05:00 [facility] POCT-GLUCOSE METER 2023-03-31 13:39:00 [facility] POCT-GLUCOSE METER 2023-03-31 06:39:00 Skyler Salinas [facility] CBC W/PLT COUNT & AUTO 2023-03-31 05:48:00 [facility] CBC W/PLT COUNT & AUTO 2023-03-31 05:48:00 [facility] COMPREHENSIVE METABOLIC 2023-03-31 05:48:00 Victoria [facility] HEMOGLOBIN A1C 2023-03-31 05:48:00 Victoria [facility] LIPID PANEL 2023-03-31 05:48:00 Victoria [facility] TSH/FREE T4 IF INDICATED 2023-03-31 05:48:00 [facility] VITAMIN B12 2023-03-31 05:48:00 [facility] RPR 2023-03-31 05:48:00 [facility] EXTERNAL PROVIDER RECORDS 2023-02-22 05:01:00 Doctor Unassigned, [facility] MEDICAL RELEASE/CLEARANCE 2023-02-01 05:01:00 Doctor Unassigned, [facility] FORMS [facility] PATIENT FINANCIAL 2023-01-12 20:15:01 Doctor Melizassavtar, [facility] POLICY [facility] DISABILITY/FMLA 2022-11-01 06:01:00 Doctor Unassigned, [facility] AUTHORIZATION TO RELEASE 2022-09-23 06:01:00 Doctor Unassigned, [facility] PHI TO [facility] DISABILITY/FMLA 2022-09-07 06:01:00 Doctor Unassigned, [facility] ACTIVATED PARTIAL THRMPLAS 2022-08-28 15:10:00 Yury Pagan [facility] ACTIVATED PARTIAL THRMPLAS 2022-08-28 15:10:00 Yury Pagan U niversity [facility] POCT GLUCOSE (AUTOMATED) 2022-08-28 13:52:00 Dinora Hamm Uni versity of [facility] POCT GLUCOSE (AUTOMATED) 2022-08-28 13:52:00 Dinora Hamm versity [facility] MAGNESIUM 2022-08-28 06:45:00 [facility] BASIC METABOLIC PANEL (NA, 2022-08-28 06:45:00 [facility] [address] [facility] K, CL, CO2, GLUCOSE, BUN, Medica l Branch CREATININE, CA) ACTIVATED PARTIAL THRMPLAS 2022-08-28 06:45:00 Yury Pagan [facility]iversity [facility] MAGNESIUM 2022-08-28 06:45:00 [facility] BASIC METABOLIC PANEL (NA, 2022-08-28 06:45:00 [facility] K, CL, CO2, GLUCOSE, BUN, Medica l Branch CREATININE, CA) ACTIVATED PARTIAL THRMPLAS 2022-08-28 06:45:00 Yury Pagan [facility]iversity [facility] POCT GLUCOSE (AUTOMATED) 2022-08-28 02:33:00 Dinora Hamm versity of [facility] POCT GLUCOSE (AUTOMATED) 2022-08-28 02:33:00 Dinora Hamm versity of [facility] POCT GLUCOSE (AUTOMATED) 2022-08-27 22:04:00 Dinora Hamm versity of [facility] POCT GLUCOSE (AUTOMATED) 2022-08-27 22:04:00 Dinora Hamm versity of [facility] TROPONIN I 2022-08-27 20:33:00 Jacques [facility] ACTIVATED PARTIAL THRMPLAS 2022-08-27 20:33:00 [facility] TROPONIN I 2022-08-27 20:33:00 Jacques [facility] ACTIVATED PARTIAL THRMPLAS 2022-08-27 20:33:00 [facility] POCT GLUCOSE (AUTOMATED) 2022-08-27 20:15:00 Dinora Hamm Uni versity of [facility] POCT GLUCOSE (AUTOMATED) 2022-08-27 20:15:00 Dinora Hamm [facility] versity of [facility] CARDIAC CATHETERIZATION 2022-08-27 19:03:44 Hansel [facility] ersity of [facility] CARDIAC CATHETERIZATION 2022-08-27 19:03:44 Hansel er [facility] ersity of [facility] CARDIAC CATHETERIZATION 2022-08-27 19:03:44 Hansel Amer [facility] ersity of [facility] CARDIAC CATHETERIZATION 2022-08-27 19:03:44 Hansel [facility] ersity of [facility] URINE DRUG (IMMUNOASSAY) - 2022-08-27 17:14:00 Payton Hanna [facility] [place] COM[facility]HENS[facility] DR[facility] (IMMUNOASSAY) - 2022-08-27 17:14:00 Payton Hanna [facility] [place] COMPREHENSIVE DRUG [facility]CREEN [facility] POCT GLUCOSE (AUTOMATED) 2022-08-27 16:02:00 Yury Pagan [facility] [facility] POCT GLUCOSE (AUTOMATED) 2022-08-27 16:02:00 Yury Pagan versity of [facility] TRANSTHORACIC ECHO (TTE) 2022-08-27 15:15:00 Payton Hanna Uni [facility] [place] COMPLETE W/ CONTRAST Medical [facility] TRANSTHORACIC ECHO (TTE) 2022-08-27 15:15:00 Payton Hanna [facility] [place] COMPLETE W/ CONTRAST Medical [facility] TROPONIN I 2022-08-27 12:15:00 Jacques [facility] N-TERMINAL PRO-BNP 2022-08-27 12:15:00 [facility] TROPONIN I 2022-08-27 12:15:00 [facility] PRO-BNP 2022-08-27 12:15:00 [facility] PARTIAL THRMPLAS 2022-08-27 10:20:00 Yury Pagan U [facility] ACTIVATED PARTIAL THRMPLAS 2022-08-27 10:20:00 Yury Pagan U [facility] TROPONIN I 2022-08-27 07:22:00 Jacques [facility] TROPONIN I 2022-08-27 07:22:00 Jacques [facility] PROTHROMBIN TIME / INR 2022-08-27 03:47:[address] [facility] ACTIVATED PARTIAL THRMPLAS 2022-08-27 03:47:00 Yury Pagan U [facility] PROTHROMBIN TIME / INR 2022-08-27 03:47:[address] [facility] ACTIVATED PARTIAL THRMPLAS 2022-08-27 03:47:00 Yury Pagan U [facility] HB ECG ROUTINE & RHYTHM 2022-08-27 03:40:31 Yury Pagan [facility] HB ECG ROUTINE & RHYTHM 2022-08-27 03:40:31 Yury Pagan [facility] TROPONIN I 2022-08-27 02:37:00 Yury Pagan [facility] TROPONIN I 2022-08-27 02:37:00 Yury Pagan [facility] XR CHEST 1 2022-08-26 23:39:25 Yury Pagan [facility] XR CHEST 1 2022-08-26 23:39:25 Yury Pagan [facility] CK (CREATINE KINASE) + MB 2022-08-26 23:23:00 Yury Pagan [facility] TROPONIN I 2022-08-26 23:23:00 Yury Pagan [facility] COMP. METABOLIC PANEL 2022-08-26 23:23:00 Yury Pagan [facility] ([id number]) [facility] CBC WITH DIFF 2022-08-26 23:23:00 Yury Pagan [facility] GLYCOSYLATED HEMOGLOBIN 2022-08-26 23:23:00 Jacques [facility] ([facility] CK (CREATINE KINASE) + MB 2022-08-26 23:23:00 Yury Pagan Un [facility] TROPONIN I 2022-08-26 23:23:00 Yury Pagan [facility] COMP. METABOLIC PANEL 2022-08-26 23:23:00 Yury Pagan [facility] ([id number]) [facility] CBC WITH DIFF 2022-08-26 23:23:00 Yury Pagan [facility] GLYCOSYLATED HEMOGLOBIN 2022-08-26 23:23:00 Jacques [facility] ([facility]) [facility] HB ECG ROUTINE & RHYTHM 2022-08-26 23:13:20 Yury Pagan [facility] HB ECG ROUTINE & RHYTHM 2022-08-26 23:13:20 Yury Pagan [facility] HOSPITAL ADMISSION 2022-08-26 06:01:00 Doctor Unassigned, [facility] Name [facility] DISABILITY/FMLA 2022-07-29 05:01:00 Doctor Unassigned, [facility] [facility] SARS-COV-2 COVID-19 2022-06-22 16:14:29 Bernard Gallardo [facility] KEN-SUCROSE VACCINE [address] [place] [address] Branch YRS+, BIVALENT 0.3ML, IM, (PFIZER ANDERSON TOP BOOSTER) Plan of Care Planned Activity Planned Date Details Comments Source Future Scheduled 2028-05-30 DTAP/TDAP/TD VACCINES ([address] [facility] 00:00:00 - Td or Tdap) [[facility] DTAP/TDAP/TD VACCINES (2 - Td or Tdap)] Future Scheduled 2026-03-31 Lipid panel (procedure) [facility] 00:00:00 [code = 94226130] Medical Ce nter Future Scheduled 2023-05-27 Influenza Vaccine (#1) [facility]00 [code = Influenza Vaccine Md dicsc Center (#1)] Future Scheduled 2023-04-[address] 00:[facility]:00 measurement (procedure) [facility] [code = 09221818] Future Scheduled 2022-09-[address] [facility] 00:00:00 (12+) [code = DEPRESSION Med ical Center SCREENING (12+)] Future Scheduled 2021-03-07 COVID-19 VACCINE (3 - [facility] 00:[facility]:00 Booster for Pfizer Medical C enter series) [code = COVID-19 VACCINE (3 - Booster for Pfizer series)] Future Scheduled 2017 SHINGLES VACCINES ([address] [facility] 00:00:00 2) [code = SHINGLES [facility] VACCINES (1 of 2)] Future Scheduled 1985 HEPATITIS C SCRE[facility]ING [facility] 00:00:00 [code = HEPATITIS C Medical Center SCREENING] Future Scheduled [address] [facility] 00:00:00 virus screening Medical Cent er (procedure) [code = 264629802] Future Scheduled [address] [facility] Test 00:00:00 Counseling and Screening [facility] (12+) [code = Tobacco Cessation Counseling and Screening (12+)] Future Scheduled 1977 DIABETIC EYE EXAM [code = [facility] 00:00:00 DIABETIC EYE EXAM] Medical C enter Future Scheduled 1977 Diabetic foot examination [facility] 00:00:00 (regime/therapy) [code = Med ical Center 666542009] Future Scheduled 1977 Urine screening for [facility] 00:00:00 protein (procedure) [code Md dical Center = 861081969] Future Scheduled 1973 Pneumococcal Vaccine: [facility] 00:00:00 0-64 Years (1 - PCV) Medical Center [code = Pneumococcal Vaccine: 0-64 Years (1 - PCV)] Future Scheduled 1967 CT Colonography (combo) [facility] 00:00:00 [code = CT Colonography [facility] (combo)] Future Scheduled 1967 Screening for malignant [facility] 00:00:00 neoplasm of colon Medical Ce nter (procedure) [code = 489287386] Future Scheduled 1967 Screening for malignant [facility] 00:00:00 neoplasm of colon Medical Ce nter (procedure) [code = 391300337] Future Scheduled 1967 Screening for malignant [facility] 00:00:00 neoplasm of colon Medical Ce nter (procedure) [code = 957061932] Future Scheduled 1967 Screening for malignant [facility] Test 00:00:00 neoplasm of colon Medical Ce nter (procedure) [code = 969693698] Future Scheduled 1967 Sigmoidoscopy [code = [facility] 00:[facility]00 Sigmoidoscopy] Medical Cente r Encounters Start End Encounter Admission Attending Care Care Encounter Source Date/Time Date/Time Type Type Clinicians Facility Department ID 2021-07-27 Emergency [facility] [id number] Univers [facility]:54[facility]-07-25 Emergency [facility] [id number] Univers 18:28:[facility] 2023-03-31 2023-04-06 [facility] [id number] 04:25:00 20:04:00 Encounter Maykel Hubbard Kimberly [facility] Thanh Kessler [facility] 2023-03-31 2023-04-06 Inpatient UR ANGIE SCHNEIDER [facility] [id number] SLE 04:25:00 20:04:00 DOROTHY 2023-04-01 2023-04-01 [facility] [id number] SLE 13:11:22 13:11:22 THANH 2023-04-01 2023-04-01 Outpatient UR BROOKS WILKINS [facility] SLE [id number] SLE 13:00:27 13:00:27 2023-04-01 2023-04-01 Outpatient UR SAL SLESherrell [facility] [id number] SLEH 12:50:29 12:50:29 SADEMOUD 2023-04-01 2023-04-01 Outpatient UR ANGIE HUBBARD [facility] [id number] [facility] 04:30:45 04:30:45 MAYKEL 2023-04-01 2023-04-01 Outpatient UR STEVIE SLE SLE [id number] SLEH 04:30:40 04:30:40 MAYKEL 2023-03-31 2023-03-31 Outpatient VICTORIA, [facility] [id number] 06:31:04 06:31:04 [facility] 2023-03-31 2023-03-31 Outpatient VICTORIA, [facility] [id number] 06:31:04 06:31:04 [facility] 2023-03-31 2023-03-31 Travel [facility] [id number] [facility] 00:[facility]:00 00:00:00 [facility] 2023-02-28 2023-02-28 Outpatient EDD KENNY [facility] [id number] Univers 15:40:00 15:40:[address] [facility] 2023-02-25 2023-02-25 Outpatient Barbara LANDA [facility] [id number] Univers 14:30:00 14:30:[address] [facility] 2023-02-22 2023-02-22 Orders Doctor ROBB 1.2.840.114 [id number] Univers 00:00:00 00:00:00 Only Unassigned, BULL 350.1.13.10 [place] [facility] 4.2.7.2.686 Erick as [phone] [address] 2023-02-18 2023-02-18 Outpatient GABRIEL HOLLINGSWORTH [facility] [id number] Univers 15:20:00 16:03:48 GABRIEL WEI [facility] 2023-02-18 2023-02-18 Office Sondra [facility] 1.2.840.114 [id number] Univers 15:20:00 16:03:48 Visit Gabriel [facility] 350.1.13.10 ity of [place] 4.2.7.2.686 Erick as LARRY?BLEA [phone] Md patti SCANLON 0[address] [facility] OFFICE [facility] 2023-02-15 2023-02-15 Outpatient R EDD KIMBROUGH [facility] [id number] Univers 15:40:00 15:40:00 EDD KIMBROUGH [facility] 2023-02-04 2023-02-04 Outpatient R ARNULFO [facility] [id number] Univers 15:40:00 15:40:00 TAZSARAHLACIE nick o f [facility] 2023-02-04 2023-02-04 Patient Doctor [facility] 1.2.840.114 [id number] Univers 00:00:00 00:00:00 Secure Msg Unassigned, HEALTH 350.1.13.10 [place] 4.2.7.2.686 Erick as LARRY?BLEA [phone] Md patti [address] OFFICE [facility] 2023-02-03 2023-02-03 Telephone [facility] 1.2.840.114 [id number] Univers 00:00:00 00:00:00 , [facility] 350.1.13.10 ity of [place] 4.2.7.2.686 Erick as LARRY?BLEA [phone] [address] 2023-02-03 2023-02-03 Case [facility] 1.2.840.114 [id number] Univers 00:00:00 00:00:00 Management , [facility] 350.1.13.10 ity of [place] 4.2.7.2.686 Erick as LARRY?BLEA [phone] [address] 2023-02-01 2023-02-01 Ju[facility] Standard[facility], Ang - Roderick [facility] 1.2.840.1 14 [id number] Univers 11:45:00 12:00:00 Visit Christina Gallo [facility] 350.1 .13.10 [place] 4.2.7.2.686 Erick as LARRY?BLEA [phone] Md patti [facility] [address] MEDICAL OFFICE BUILDING 2023-02-01 2023-02-01 Office [facility] 1.2.840.114 [id number] Univers 11:20:00 11:40:00 Visit , Christina [employer] 350.1.13.10 ity of [place] 4.2.7.2.686 Erick as LARRY?BLEA [phone] [address] MEDICAL OFFICE BUILDING 2023-02-01 2023-02-01 Outpatient R [facility] [id number] Univers 11:20:00 11:20:00 , CHRISTINA it y of [facility] 2023-02-01 2023-02-01 Orders Doctor CEZAR 1.2.840.114 [id number] Univers 00:00:00 00:00:00 Only Unassigned, BULL 350.1.13.10 [place] [facility] 4.2.7.2.686 Erick as [phone] [address] 2023-02-01 2023-02-01 Patient [facility] 1.2.840.114 [id number] Univers 00:00:00 00:00:00 Secure Msg , Christina HEALTH 350.1.13.10 ity of [place] 4.2.7.2.686 Erick as LARRY?BLEA [phone] [address] MEDICAL OFFICE [facility] 2023-01-28 2023-01-28 Outpatient R APRIL [facility] [id number] Univers 16:15:00 16:15:00 , CHRISTINA it y of [facility] 2023-01-28 2023-01-28 Outpatient R GABRIEL WEI [facility] [id number] Univers 08:40:00 08:40:00 GABRIEL WEI [facility] 2023-01-21 2023-01-21 Telephone Sherwin [facility] 1.2.083.933 [id number] Univers 00:00:00 00:00:00 Mario HEALTH 350.1.13.10 it y of [place] 4.2.7.2.686 Erick as LARRY?BLEA [phone] Md dicmarilyn RAVIEY [address] MEDICAL OFFICE BUILDING 2023-01-14 2023-01-14 Letter Ronen, [facility] 1.2.840.114 [id number] Univers 00:00:00 00:00:00 (Out) General HEALTH 350.1.13.10 it y of Cardiology [place] 4.2.7.2.686 T exelena LOPEZ [phone] [place] [address] [place] OFFICE [facility] 2023-01-12 2023-01-12 Juice Standardizer Lab, Ang - Db [facility] 1.2.840.1 14 [id number] Univers 16:15:00 16:30:00 Visit Sherwin Mario [facility] 350.1.13.10 ity of [place] 4.2.7.2.686 Erick as LARRY?BLEA [phone] [facility] [address] [facility] OFFICE [facility] 2023-01-12 2023-01-12 Outpatient R SHERWIN [facility] [id number] Univers 15:30:00 16:13:30 MARIO ity of [facility] 2023-01-12 2023-01-12 Office [facility] 1.2.840.114 [id number] Univers 15:30:00 16:13:30 Visit [facility] 350.1.13.10 it y of [place] 4.2.7.2.686 Erick as LARRY?BLEA [phone] [facility] 044 [facility] OFFICE [facility] 2023-01-12 2023-01-12 Orders Doctor CEZAR 1.2.840.114 [id number] Univers 00:00:00 00:00:00 Only Unassigned, B[place] 350.1.13.10 [place] [facility] 4.2.7.2.686 Erick as [phone] [facility] [address] 2023-01-12 2023-01-12 Telephone Arnulfo [facility] 1.2.054.189 [id number] Univers 00:00:00 00:00:00 Lawrence DELANEY 350.1.13.10 ity of [place] 4.2.7.2.686 [place] PROF[place] [phone] [place] [address] [facility] 2022-12-20 2022-12-20 Outpatient R PAULINA, [facility] [id number] Univers 09:30:00 09:30:00 BERNARD romero [facility] 2022-12-06 2022-12-06 Outpatient R ARNULFO, [facility] [id number] Univers 11:00:00 11:00:00 LAWRENCE maria f [facility] 2022-12-03 2022-12-03 Outpatient R JU, [facility] [id number] Univers 14:00:00 14:00:00 VIDHI romero [facility] 2022-11-18 2022-11-18 Outpatient R BINH, [facility] [id number] Univers 09:45:00 09:45:00 GT romero [facility] 2022-11-01 2022-11-01 Orders Doctor CEZAR 1.2.840.114 [id number] Univers 00:00:00 00:00:00 Only Unassigned, BULL 350.1.13.10 [place] [facility] 4.2.7.2.686 Erick as [phone] [address] 2022-10-20 2022-10-20 [facility]o [facility] 1.2.840.114 [id number] Univers 00:00:00 00:00:00 Radha A HEALTH 350.1.13.10 i ty of [place] 4.2.7.2.686 Erick as LARRY?BLEA [id number] [address] MEDICAL OFFICE BUILDING 2022-09-23 2022-09-23 Orders Doctor CEZAR 1.2.840.114 [id number] Univers 00:00:00 00:00:00 Only Unassigned, BULL 350.1.13.10 [place] [facility] 4.2.7.2.686 Erick as [phone] [address] 2022-09-15 2022-09-15 Outpatient Barbara [facility] [id number] Univers 15:00:00 15:00:00 LAWRENCE maria f [facility] 2022-09-07 2022-09-07 [facility] 1.2.840.114 [id number] Univers 00:00:00 00:00:00 (Out) [facility] Sleep HEALTH 350.1.13.10 ity of [place] [phone] [facility] [address] OFFICE [facility] 2022-09-07 2022-09-07 Telephone [facility] 1.2.841.507 [id number] Univers 00:00:00 00:00:00 Lawrence DELANEY 350.1.13.10 ity of [facility] 4.2.7.2.[place] [phone] Md dicsc NAL 9 [facility] 2022-09-07 2022-09-07 Orders Doctor CEZAR 1.2.840.114 [id number] Univers 00:00:00 00:00:00 Only Unassigned, BULL 350.1.13.10 [place] [facility] 4.2.7.2.686 Erick as [phone] [address] 2022-09-06 2022-09-06 Outpatient R [facility] [id number] Univers 10:20:00 10:34:28 QIAJAMI ity o f [facility] 2022-09-06 2022-09-06 Office [facility] 1.2.840.114 [id number] Univers 10:20:00 10:34:28 Visit Lawrence [place] 350.1.13.10 ity of [facility] 4.2.7.2.686 [place] [phone] Md dicsc NAL [address] [place] [address] 2022-09-03 2022-09-03 Outpatient R JENNIFER [facility] [id number] Univers 11:00:00 11:32:00 RADHA ity of [facility] 2022-09-03 2022-09-03 Office [facility] 1.2.840.114 [id number] Univers 11:00:00 11:32:00 Visit Radha A HEALTH 350.1.13.10 i ty of [facility] 4.2.7.2.686 Erick as LARRY?BLEA [phone] Md dicmarilyn SCANLON 0[address] [facility] OFFICE [facility] 2022-08-26 2022-08-28 Outpatient X DINORA [facility] 1 [id number] Univers 17:14:00 14:49:00 SEBASTIENLETYDINORA Herrera itchristian [facility] 2022-08-26 2022-08-28 Emergency Latasha Yury Emilee OCONNOR 1.2.840.1 14 [id number] Univers 17:14:00 14:49:00 Dinora Hamm 350.1.13.10 ity of [facility] 4.2.7.2.686 Erick as [phone] [facility] [address] 2022-08-27 2022-08-27 Surgery IBETH Burden 1.2.840.114 [id number] Univers 13:00:00 14:00:00 Jasen [place] 350.1.13.10 it y of [facility] 4.2.7.2.686 Erick as [phone] [address] 2022-08-26 2022-08-26 Outpatient R PAULINA [facility] [id number] Univers 16:00:00 16:59:11 BERNARD itchristian [facility] 2022-08-26 2022-08-26 Office [facility] 1.2.840.114 [id number] Univers 16:00:00 16:59:11 Visit Bernard [employer] 350.1.13.10 it y of [place] 4.2.7.2.686 Erick as LARRY?BLEA [id number] [address] OFFICE [facility] 2022-08-13 2022-08-13 Telephone [facility] 1.2.808.547 [id number] Univers 00:00:00 00:00:00 Bernard HEALTH 350.1.13.10 it y of [place] 4.2.7.2.686 Erick as LARRY?BLEA [id number] [address] OFFICE [facility] 2022-08-09 2022-08-09 Telephone [facility] 1.2.794.617 [id number] Univers 00:00:00 00:00:00 Bernard HEALTH 350.1.13.10 it y of [place] 4.2.7.2.686 Erick as LARRY?BLEA [phone] [address] OFFICE [facility] 2022-08-04 2022-08-04 Telephone [facility] 1.2.725.714 [id number] Univers 00:00:00 00:00:00 Bernard HEALTH 350.1.13.10 it y of [place] 4.2.7.2.686 Erick as LARRY?BLEA [id number] [address] OFFICE [facility] 2022-07-29 2022-07-29 Orders Doctor CEZAR 1.2.840.114 [id number] Univers 00:00:00 00:00:00 Only Unassigned, BULL 350.1.13.10 [place] [facility] 4.2.7.2.686 Erick as [phone] [address] 2022-07-29 2022-07-29 Telephone [facility] 1.2.655.278 [id number] Univers 00:00:00 00:00:00 Bernard HEALTH 350.1.13.10 it y of [place] 4.2.7.2.686 Erick as LARRY?BLEA [id number] [address] OFFICE [facility] 2022-07-27 2022-07-27 Outpatient R PAULINA [facility] [id number] Univers 10:00:00 12:13:56 BERNARD ity of [facility] 2022-07-27 2022-07-27 Office [facility] 1.2.840.114 [id number] Univers 10:00:00 12:13:56 Visit Bernard HEALTH 350.1.13.10 it y of [place] 4.2.7.2.686 Erick as LARRY?BLEA [phone] [address] OFFICE [facility] 2022-07-12 2022-07-12 Telephone [facility] 1.2.455.100 [id number] Univers 00:00:00 00:00:00 Bernard HEALTH 350.1.13.10 it y of [place] 4.2.7.2.686 Erick as LARRY?BLEA [phone] [address] OFFICE [facility] 2022-06-23 2022-06-23 Telephone [facility] 1.2.733.294 [id number] Univers 00:00:00 00:00:00 Bernard HEALTH 350.1.13.10 it y of [place] 4.2.7.2.686 Erick as LARRY?BLEA [phone] Md patti RAVI[address] OFFICE [facility] 2022-06-22 2022-06-22 Outpatient R PAULINA [facility] [id number] Univers 11:45:00 12:34:08 BERNARD ity of [facility] 2022-06-22 2022-06-22 Juice Standardizer Lab, Ang - Db [facility] 1.2.840.1 14 [id number] Univers 11:45:00 12:00:00 Visit Bernard Gallardo HEALTH 350.1.13.10 ity of [place] 4.2.7.2.686 Erick as LARRY?BLEA [phone] [facility] GHISLAINE [address] [facility] OFFICE [facility] 2022-06-22 2022-06-22 Office [facility] 1.2.840.114 [id number] Univers 11:00:00 11:53:34 Visit Bernard HEALTH 350.1.13.10 it y of [place] 4.2.7.2.686 Erick as LARRY?BLEA [id number] [facility] RAVI[address] OFFICE [facility] 2022-05-19 2022-05-19 Refill [facility] 1.2.840.114 [id number] Univers 00:00:00 00:00:00 Bernard HEALTH 350.1.13.10 it y of [place] 4.2.7.2.686 Erick as LARRY?BLEA [id number] [facility] BREONNA[address] OFFICE [facility] 2022-02-18 2022-02-18 Telephone [facility] 1.2.748.283 [id number] Univers 00:00:00 00:00:00 Bernard HEALTH 350.1.13.10 it y of [place] 4.2.7.2.686 Erick as LARRY?BLEA [id number] [address] MEDICAL OFFICE [facility] 2022-02-15 2022-02-15 Telephone Paulina [facility] 1.2.269.721 [id number] Univers 00:00:00 00:00:00 Bernard HEALTH 350.1.13.10 it y of [place] 4.2.7.2.686 Erick as LARRY?BLEA [phone] [address] OFFICE [facility] 2022-01-19 2022-01-19 Refill [facility] 1.2.840.114 [id number] Univers 00:00:00 00:00:00 Radha A HEALTH 350.1.13.10 i ty of [place] 4.2.7.2.686 Erick as LARRY?BLEA [phone] [address] OFFICE [facility] 2021-12-15 2021-12-15 Outpatient Barbara MULLER [facility] [id number] Univers 15:30:00 15:30:00 STACEY ity [facility] 2021-12-15 2021-12-15 Outpatient R RENZO [facility] [id number] Univers 15:30:00 15:30:00 STACEY ity [facility] 2021-12-15 2021-12-15 [facility] [id number] Univers 15:30:00 15:30:00 STACEY ity [facility] 2021-12-11 2021-12-11 [facility] [id number] Univers 16:00:00 16:00:00 STACEY ity [facility] 2021-12-11 2021-12-11 [facility] [id number] Univers 16:00:00 16:00:00 STACEY ity [facility] 2021-12-04 2021-12-04 [facility] [id number] Univers 00:00:00 00:00:00 Stacey MULTISPEC [id number] ity [facility] [id number] [phone] [address] [facility] 2021-11-05 2021-11-05 Outpatient Barbara GALLARDO [facility] [id number] Univers 14:00:00 15:22:45 BERNARD ity of [facility] 2021-11-05 2021-11-05 Office [facility] [id number] Univers 14:00:00 15:22:45 Visit Bernard [facility] [id number] it y of [place] [id number] Erick as LARRY?BLEA [phone] [address] MEDICAL OFFICE BUILDING 2021-11-05 2021-11-05 Orders Doctor CEZAR [id number] Univers 00:00:00 00:00:00 Only Unassigned, [place] 350.1.13.10 [place] [facility] 4.2.7.2.686 Erick as [phone] [place] [address] [place] 2021-10-09 2021-10-09 [facility] 1.2.003.501 [id number] [id number] Univers 00:00:00 00:00:00 [facility] 350.1.13.10 ity of [facility] 4.2.7.2.686 [place] [phone] [facility] [place] [address] [address] DIABETES CLINIC 2021-10-07 2021-10-07 Outpatient R ARNULFO [facility] [id number] Univers 15:40:00 15:40:00 LAWRENCE ity o f [facility] 2021-10-07 2021-10-07 Refill Jennifer [facility] 1.2.840.114 [id number] Univers 00:00:00 00:00:00 Radha A HEALTH 350.1.13.10 i ty of [place] 4.2.7.2.686 Erick as PROFESSIO [phone] [address] OFFICE BUILDING ONE 2021-09-19 2021-09-19 Refill [facility] 1.2.840.114 [id number] Univers 00:00:00 00:00:00 Radha A HEALTH 350.1.13.10 i ty of [facility] 4.2.7.2.686 Erick as LARRY?BLEA [phone] [address] MEDICAL OFFICE BUILDING 2021-09-16 2021-09-16 Telephone [facility] 1.2.840.114 [id number] Univers 00:00:00 00:00:00 Stacey SMITHPEC 350.1.13.10 ity of [place] [phone] [address] DIABETES CLINIC 2021-09-14 2021-09-14 Juice Standardizer Vtc-Lab [facility] 1.2.840.114 [id number] [id number] Univers 12:30:00 12:45:00 Visit Renzo Staceyshahana ELLIOTT 350.1.13.1 0 ity of [place].2.686 [place] [phone] [address] DIABETES CLINIC 2021-09-14 2021-09-14 Office [facility] 1.2.701.218 0722 4012 Univers 11:30:00 12:10:15 Visit [facility] 350.1.13.10 ity of [place].2.[place] [phone] [address] DIABETES CLINIC 2021-09-14 2021-09-14 Out[facility] [id number] Univers 11:30:00 12:10:15 [facility] 2021-09-14 2021-09-14 Outpatient R [facility] [id number] Univers 11:30:00 11:30:00 [facility] 2021-09-07 2021-09-07 Telephone [facility] 1.2.840.114 [id number] Univers 00:00:00 00:00:00 Stacey [facility] 350.1.13.10 ity of [place] [phone] [address] DIABETES CLINIC 2021-08-09 2021-08-09 Jhonny Rodriguez [facility] 1.2.840.114 [id number] Univers 00:00:00 00:00:00 Radha A HEALTH 350.1.13.10 i ty of [place] 4.2.7.2.686 Erick as LARRY?BLEA [phone] [address] MEDICAL OFFICE [facility] 2021-07-21 2021-07-21 Outpatient R MAGNOLIA [facility] [id number] Univers 09:00:00 09:00:00 TENAHED ity [facility] 2021-07-11 2021-07-11 Refill [facility] 1.2.524.097 [id number] Univers 00:00:00 00:00:00 Stacey SMITHPEC 350.1.13.10 ity of [place].2.[place] [phone] [address] DIABETES CLINIC 2021-07-01 2021-07-01 Telephone Ibeth Manriquez 1.2.965.789 [id number] 2572 Univers 00:00:00 00:00:00 Leonardo [place] 350.1.13.10 it y of [facility] 4.2.7.2.686 [place]rick as [phone] [place] [address] [address] 2021-06-28 2021-06-28 Refle Rodriguez [facility] 1.2.840.114 [id number] Univers 00:00:00 00:00:00 Radha A Health 350.1.13.10 i ty of [place] 4.2.7.2.686 Erick as Larry?Blea [phone] [address] Medical Office [facility] 2021-06-19 2021-06-19 Outpatient R RENZO [facility] [id number] Univers 00:00:00 00:00:00 STACEY blancoy [facility] 2021-06-15 2021-06-15 Juice Standardizer Vt-Lab [facility] 1.2.840.114 [id number] Univers 09:05:52 09:20:52 Visit Stacey Muller 350.1.13.1 0 ity of [place].2.686 [place] [phone] [facility] [address] [place] DIABETES CLINIC 2021-06-15 2021-06-15 Juice Standardizer Vt-Lab [facility] 1.2.840.114 [id number] Univers 09:05:52 09:20:52 Visit Stacey Muller 350.1.13.1 0 ity of [place].2.[place] [phone] [facility] [address] [place] DIABETES CLINIC 2021-06-15 2021-06-15 Office [facility] 1.2.265.353 [id number] [id number] Univers 07:56:22 09:06:08 [facility] 350.1.13.10 it[place].2.[place] [id number] [facility] [address] [place] DIABETES CLINIC 2021-06-15 2021-06-15 Office [facility] 1.2.798.258 [id number] 9645 Univers 07:56:22 09:06:08 Visit [facility] 350.1.13.10 ity of [place] 4.2.7.2.686 [facility] [place] [phone] [address] DIABETES CLINIC 2021-06-15 2021-06-15 Outpatient R RENZO [facility] [id number] Univers 08:30:00 08:30:00 STACEY ity of [facility] 2021-06-15 2021-06-15 Orders Doctor CEZAR 1.2.840.114 [id number] Univers 00:00:00 00:00:00 Only Unassigned, BULL 350.1.13.10 [place] [facility] 4.2.7.2.686 Erick as [phone] [address] 2021-06-15 2021-06-15 Orders Doctor ROBB 1.2.840.114 [id number] Univers 00:00:00 00:00:00 Only Unassigned, BULL 350.1.13.10 [place] [facility] 4.2.7.2.686 Erick as [phone] [facility] [address] [place] 2021-06-10 2021-06-10 Telephone Ibeth Manriquez 1.2.474.273 8216 0090 Univers 00:00:00 00:00:00 Leonardo Blul 350.1.13.10 it y of Hospital 4.2.7.2.686 [place] as [phone] [facility] [address] 2021-06-10 2021-06-10 Telephone Ibeth Manriquez2.126.398 8923 0090 Univers 00:00:00 00:00:00 Leonardo [place] 350.1.13.10 it y of [facility] 4.2.7.2.686 [place] as [phone] [place] [address] [address] 2021-06-05 2021-06-05 [facility] 1.2.840.114 [id number] Univers 13:48:18 14:55:22 Visit Radha A Health 350.1.13.10 i ty of [place] 4.2.7.2.686 Erick as Larry?Blea [phone] [address] Medical Office Building 2021-06-05 2021-06-05 Outpatient [facility] [id number] Univers 14:00:00 14:00:00 RADHA romero [facility] 2021-06-05 2021-06-05 Outpatient R [facility] [id number] Univers 09:30:00 09:30:00 RADHA romero [facility] 2021-06-05 2021-06-05 Refle [facility] 1.2.840.114 [id number] Univers 00:00:00 00:00:00 [facility] 350.1.13.10 it y of [place] 4.2.7.2.686 Erick as Professio [phone] [address] Office Building One 2021-06-05 2021-06-05 Refle [facility] 1.2.840.114 [id number] 74 Univers 00:00:00 00:00:00 [facility] 350.1.13.10 it y of [place] 4.2.7.2.686 [place] as Professio [phone] [address] Office Building One 2021-06-03 2021-06-03 Telephone [facility] 1.2.840.114 [id number] Univers 00:00:00 00:00:00 Stacey MULTISPEC 350.1.13.10 ity of [facility] 4.2.7.2.686 [place] [phone] [facility] AND [address] DIABETES CLINIC 2021-06-03 2021-06-03 Telephone [facility] 1.2.840.114 [id number] Univers 00:00:00 00:00:00 Stacey ELLIOTT 350.1.13.10 ity of [facility] 4.2.7.2.686 [facility] [phone] [facility] AND [address] DIABETES CLINIC 2021-05-29 2021-05-29 Outpatient Barbara MERIDA [facility] [id number] Univers 09:00:00 09:00:00 TEJO ity [facility] 2021-05-25 2021-05-26 Emergency [facility] 1.2.045.130 [id number] Univers 06:08:00 00:16:00 Fer Delaney 350.1.13.10 i ty of [place] 4.2.7.2.686 [facility] [phone] [address] 2021-05-25 2021-05-26 Emergency [facility] 1.2.569.987 [id number] 0590 Univers 06:08:00 00:16:00 Fer Delaney 350.1.13.10 i ty of [place] 4.2.7.[address] [place] [address] [phone] 2021-05-25 2021-05-25 Outpatient Barbara MULLER [facility] [id number] Univers 16:00:00 16:00:00 [facility] 2021-05-25 2021-05-25 Outpatient Barbara MULLER [facility] [id number] Univers 14:30:00 14:30:00 [facility] 2021-05-20 2021-05-20 Office Corrie [facility] 1.2.871.436 [id number] [id number] Univers 15:51:17 16:04:18 Visit Rodrigo Delaney 350.1.13.10 ity of [place] 4.2.7.2.686 [facility] Professio [phone] Md dical [address] 2021-05-20 2021-05-20 Office Corrie [facility] 1.2.528.913 [id number] 9859 Univers 15:51:17 16:04:18 Visit Clivel [place] 350.1.13.10 [place] of [place] Profess[place] [phone] Md dicsc nal 085 [facility] 2021-05-20 2021-05-20 Outpatient R MACOCLIVE ESPARZAAdelso [facility] [id number] Univers 16:00:00 16:00:00 MACOCLIVE ESPARZAAdelso ity [facility] 2021-05-19 2021-05-19 [facility] 1.2.840.114 [id number] Univers 13:53:10 14:13:10 Visit Leonardo [place] 350.1.13.10 i ty of [place].2.7.2.[place] Profess[place] [phone] Md dicsc nal 059 [facility] 2021-05-19 2021-05-19 Office [facility] 1.2.840.114 [id number] 42 Univers 13:53:10 14:13:10 Visit Leonardo [place] 350.1.13.10 i ty of [place].7.2.[place] Professio [phone] [facility] [address] [place] [address] 2021-05-19 2021-05-19 Outpatient R DECLAN [facility] [id number] Univers 14:00:00 14:00:00 LEONARDO itchristian [facility] 2021-05-08 2021-05-08 Outpatient R CORRIE RODRIGO [facility] [id number] Univers 19:30:00 19:30:00 CATHIEBRIANCLIVEAdelso ity [facility] 2021-05-08 2021-05-08 Juice Standardizer 1, Adc Sleep Lab Bed [facility] 1. 2.840.114 [id number] Univers 15:24:09 17:54:09 Visit Corrie Rodrigo [place] 350.1.13. 10 ity of [place] 4.2.7.2.686 [place] [phone] [address] 2021-05-08 2021-05-08 Juice Standardizer Lin, Adc Lab Main [facility] 1.2.8 40.114 [id number] Univers 16:00:52 16:15:52 Visit Rodrigo Maya 350.1.13. 10 ity of [place] 4.2.7.2.686 [facility] [phone] [address] 2021-05-08 2021-05-08 Outpatient R RODRIGO MAYA [facility] [id number] Univers 16:00:00 16:00:00 RODRIGO MAYA ity [facility] 2021-05-07 2021-05-07 Outpatient [facility] [id number] Univers 11:00:00 11:00:00 STACEY ity [facility] 2021-05-07 2021-05-07 Telephone CEZAR [place] 1.2.635.439 [id number] Univers 00:00:00 00:00:00 Kellie MCFARLAND 350.1.13.10 it y of [place] [address]...2.686 Erick as [phone] [facility] [address] [place] 2021-05-06 2021-05-06 Laboratory Only, Adc Test [facility] 1.2.840. 114 [id number] Univers 15:32:58 15:47:58 Only Facundo Galvez 350.1.13.10 ity of [place] 4.2.7.2.686 [facility] [phone] [facility] [address] [place] 2021-05-06 2021-05-06 Outpatient R [facility] [id number] Univers 15:45:00 15:45:00 ity of [facility] 2021-05-06 2021-05-06 Orders Doctor ROBB 1.2.840.114 [id number] Univers 00:00:00 00:00:00 Only Unassigned, BULL 350.1.13.10 [place] [facility] 4.2.7.2.686 Erick as [phone] [facility] [address] [place] 2021 2021 Patient Renzo [facility] 1.2.524.638 [id number] Univers 00:00:00 00:00:00 Secure Msg Stacey MULTISPEC 350.1.13.10 ity of [place].2.[place] [phone] [facility] AND [address] DIABETES CLINIC 2021-04-30 2021-04-30 Patient [facility] 1.2.638.585 [id number] Univers 00:00:00 00:00:00 Secure Msg Stacey MULTISPEC 350.1.13.10 ity of [place].2.[place] [phone] [facility] AND [address] DIABETES CLINIC 2021-04-30 2021-04-30 Telephone [facility] 1.2.840.114 [id number] Univers 00:00:00 00:00:00 Stacey MULTISPEC 350.1.13.10 ity of [place].2.[place] [phone] [address] DIABETES CLINIC 2021-04-23 2021-04-23 Juice Standardizer Lab, [facility] Pob I [facility] 1.2. 840.114 [id number] Univers 08:00:26 08:20:26 [facility] [employer] [facility] [employer] 350.1.13.10 ity of [place] 4.2.7.2.686 Erick as Professio [phone] Md dical nal [address] [place] Office [facility] One 2021-04-23 2021-04-23 Outpatient R [facility] [id number] Univers 08:00:00 08:00:00 ity of [facility] 2021-04-22 2021-04-22 Office [facility] 1.2.856.787 [id number] Univers 13:31:24 13:51:24 Visit Rodrigo Delaney 350.1.13.10 ity of [place].7.2.[place] [phone] Md dical nal 085 [facility] 2021-04-22 2021-04-22 Outpatient R RODRIGO MAYA [facility] [id number] Univers 13:40:00 13:40:00 RODRIGO MAYA ity of [facility] 2021-04-22 2021-04-22 Office [facility] 1.2.840.114 [id number] Univers 11:24:42 12:02:05 Visit Radha Herrera Health 350.1.13.10 i ty of [place] 4.2.7.2.686 Erick as Professio [phone] [address] One 2021-04-22 2021-04-22 Orders Doctor CEZAR 1.2.840.114 [id number] Univers 00:00:00 00:00:00 Only Unassigned, BULL 350.1.13.10 [place] HOSPITAL 4.2.7.2.686 Erick as [phone] [facility] [address] [place] 2021-04-13 2021-04-13 Telephone [facility] 1.2.706.950 [id number] [id number] Univers 00:00:00 00:00:00 Bernard [place] 350.1.13.10 it y of [place] 4.2.7.2.686 Erick as Professio [phone] [address] 2021-04-08 2021-04-08 Outpatient R RODRIGO MAYA [facility] [id number] Univers 19:30:00 19:30:00 RODRIGO MAYA [facility] 2021-04-03 2021-04-03 Outpatient R CORRIE STRALASHAL [facility] [id number] Univers 19:30:00 19:30:00 RODRIGO MAYA [facility] 2021-04-03 2021-04-03 Juice Standardizer 1, [facility] Sleep Lab Bed [facility] 1. 2.840.114 [id number] Univers 13:35:47 16:05:47 Visit Rodrigo Maya [place] 350.1.13. 10 ity of [place] 4.2.7.2.686 [place] [facility] [phone] [facility] [address] 2021-04-02 2021-04-02 Orders Doctor CEZAR 1.2.840.114 [id number] Univers 00:00:00 00:00:00 Only Unassigned, BULL 350.1.13.10 [place] HOSPITAL 4.2.7.2.686 Erick as [phone] [facility] [address] 2021-04-01 2021-04-01 Office [facility] 1.2.840.114 [id number] Univers 09:53:54 10:23:16 Visit Lawrence [place] 350.1.13.10 ity of [place] 4.2.7.2.686 [place] Profess[place] [phone] Md dical nal 059 [facility] 2021-04-01 2021-04-01 Outpatient R [facility] [id number] Univers 10:00:00 10:00:00 LAWRENCE blancoy o f [facility] 2021-04-01 2021-04-01 Patient [facility] 1.2.840.114 [id number] Univers 00:00:00 00:00:00 Secure Msg Lawrence [place] 350.1.13.10 ity of [place] 4.2.7.2.686 [place] [phone] Md dicsc nal 059 [facility] 2021-03-31 2021-03-31 Refle [facility] 1.2.840.114 [id number] Univers 00:00:00 00:00:00 Radha A [facility] 350.1.13.10 i ty of [place] 4.2.7.2.686 Erick as Professio [phone] [facility] [address] [place] Office Building One 2021-03-28 2021-03-28 Refill [facility] 1.2.886.508 [id number] 9804 Univers 00:00:00 00:00:00 Stacey MULTISPEC 350.1.13.10 ity of [facility] 4.2.7.2.686 [place] C[place] [phone] [facility] AND SRIVASTAVA [address] DIABETES CLINIC 2021-03-25 2021-03-25 Outpatient Barbara MULLER [facility] [id number] Univers 09:30:00 09:30:00 STACEY romero [facility] 2021-03-23 2021-03-23 Outpatient Barbara MULLER [facility] [id number] Univers 09:30:00 09:30:00 STACEY romero [facility] 2021-03-18 2021-03-18 Telephone [facility] 1.2.840.114 [id number] Univers 00:00:00 00:00:00 Stacey MULTISPEC 350.1.13.10 ity of [place] 4[place]2.7.2.686 [place] [phone] [facility] AND [address] DIABETES CLINIC 2021-03-17 2021-03-17 Outpatient R DECLAN [facility] [id number] Univers 11:40:00 11:40:00 LEONARDO ity [facility] 2021-03-13 2021-03-13 Refle [facility] 1.2.840.114 [id number] Univers 00:00:00 00:00:00 [facility] 350.1.13.10 it y of [place] 4.2.7.2.686 Erick as Professio [phone] [address] Office Building One 2021-03-05 2021-03-05 Refle [facility] 1.2.840.114 [id number] Univers 00:00:00 00:00:00 [facility] 350.1.13.10 it y of [place] 4.2.7.2.686 Erick as Professio [phone] [address] Office Building One 2021-02-26 2021-02-26 Office [facility] 1.2.514.247 [id number] 7532 Univers 14:47:32 15:32:32 Visit [facility] Health 350.1.13.10 it y of [place].2.[place] [phone] [facility] [address] Office Building 2021-02-26 2021-02-26 Outpatient R LILA [facility] [id number] Univers 15:00:00 15:00:00 ODALIS romero [facility] 2021-02-13 2021-02-13 Hospital Rosaura QuintanillaIT 1.2.840. 114 [id number] Univers 08:06:38 23:59:00 Encounter Odalis Sharp HEALTH 350.1.13.1 0 ity of CLINICS 4.2.7.2.686 [place] [phone] [facility] [address] 2021-02-13 2021-02-13 Outpatient R LILA [facility] [id number] Univers 00:00:00 00:00:00 HASHBERTRAM itchristian of [facility] 2021-02-10 2021-02-10 Orders Doctor CEZAR 1.2.840.114 [id number] Univers 00:00:00 00:00:00 Only Unassigned, BULL 350.1.13.10 [place] [facility] 4.2.7.2.686 Erick as [phone] [facility] [address] 2021-02-10 2021-02-10 Refle [facility] 1.2.840.114 [id number] Univers 00:00:00 00:00:00 [facility] 350.1.13.10 it y of [place] 4.2.7.2.686 Erick as Professio [id number] [address] Office [facility] One 2021-01-29 2021-01-29 Refle [facility] 1.2.840.114 [id number] Univers 00:00:00 00:00:00 Bernard [facility] 350.1.13.10 it y of [place] 4.2.7.2.686 Erick as Professio [phone] [address] Office [facility] One 2021-01-23 2021-01-23 Jhonny [facility] 1.2.840.114 [id number] 76 Univers 00:00:00 00:00:00 Bernard [facility] 350.1.13.10 it y of [place] 4.2.7.2.686 Erick as Professio [phone] [facility] nal [address] [place] [address] Office [facility] One 2021-01-22 2021-01-22 Telephone Dwight [facility] 1.2.840.114 [id number] Univers 00:00:00 00:00:00 Rosaura R Y HEALTH 350.1.13.10 i ty of CL[place]ICS 4[place]2.7.2.[place] [phone] [facility] [address] 2021-01-21 2021-01-21 Letter Neurology [facility]ERS[facility] 1.2.840.114 [id number] Univers 00:00:00 00:00:00 (Out) Y HEALTH 350.1.13.10 i ty of CL[place]ICS 4[place]2.7.2.[place] [id number] [facility] [address] 2021-01-21 2021-01-21 Telephone Cay[place] IslanderFRITZ 1.2.840.114 [id number] Univers 00:00:00 00:00:00 Rosaura R Y HEALTH 350.1.13.10 i ty of CLINICS 4.2.7.2.[place] [id number] [facility] [address] 2021-01-20 2021-01-20 Telephone Renzo [facility] 1.2.840.114 [id number] Univers 00:00:00 00:00:00 Stacey MULTISPEC 350.1.13.10 ity of [place]2.7.2.686 [place] CENTER [id number] [facility] AND SALADO [address] [place] DIABETES CLINIC 2021-01-17 2021-01-17 Refill Doctor [facility] 1.2.840.114 [id number] Univers 00:00:00 00:00:00 Unassigned, Health 350.1.13.10 [place] 4.2.7.2.686 Erick as Professio [phone] Md dic[address] Office Building One 2021-01-17 2021-01-17 Refill Paulina [facility] 1.2.840.114 [id number] Univers 00:00:00 00:00:00 Bernard [facility] 350.1.13.10 it y of [place] 4.2.7.2.686 Erick as Professio [phone] Md dical nal [address] [place] Office Building One 2021-01-16 2021-01-16 Telephone Renzo [facility] 1.2.840.114 [id number] Univers 00:00:00 00:00:00 Stacey MULTISPEC 350.1.13.10 ity of [place]2.7.2.686 [place] CENTER [phone] [facility] AND SALADO [address] [place] DIABETES CLINIC 2021-01-15 2021-01-15 Juice Standardizer Lin, Christelle Lab Main [facility] 1.2.8 40.114 [id number] Univers 15:42:28 15:57:28 Visit Stacey Muller 350.1.13.10 ity of [place] 4.2.7.2.686 [place] Profess[place] [id number] Md dical nal 353 [facility] 2021-01-15 2021-01-15 Outpatient R RENZO [facility] [id number] Univers 15:30:00 15:30:00 STACEY ity of [facility] 2021-01-15 2021-01-15 Orders Doctor CZEAR 1.2.840.114 [id number] Univers 00:00:00 00:00:00 Only Unassigned, BULL 350.1.13.10 [place] [facility] 4.2.7.2.686 Erick as [id number] [address] 2021-01-14 2021-01-14 Telephone Binh [facility] 1.2.453.017 [id number] 0270 Univers 00:00:00 00:00:00 [facility] 350.1.13.10 it y of [place] 4.2.7.2.686 Erick as Professio [phone] Md dical nal [address] [place] Office Building One 2021-01-08 2021-01-08 Juice Standardizer Vtc-Lab [facility] 1.2.840.114 [id number] Univers 16:43:08 16:58:08 Visit Stacey Muller 350.1.13.1 0 ity of [place].2.686 [place] CENTER [phone] [facility] [address] [facility] 2021-01-08 2021-01-08 Office Renzo [facility] [id number] [id number] Univers 15:09:40 15:55:32 Visit [facility] 350.1.13.10 [place] [phone] [facility] [address] [facility] 2021-01-08 2021-01-08 Outpatient R RENZO [facility] [id number] Univers 15:30:00 15:30:00 STACEY ity of [facility] 2020-12-31 2020-12-31 Telephone Renzo [facility] 1.2.840.114 [id number] Univers 00:00:00 00:00:00 Stacey SMITHPEC 350.1.13.10 ity of [place] 4.2.7.2.686 [facility] [place] [phone] [address] [facility] 2020-12-30 2020-12-30 Outpatient R ARNULFO [facility] [id number] Univers 16:00:00 16:00:00 LAWRENCE romero o [facility] 2020-12-30 2020-12-30 [facility] 1.2.840.114 [id number] Univers 00:00:00 00:00:00 Stacey ELLIOTT 350.1.13.10 ity of [place] 4.2.7.2.686 [facility] [place] [phone] [address] [facility] 2020-12-29 2020-12-29 Office [facility] 1.2.840.114 [id number] Univers 15:29:39 16:24:44 Visit Lawrence Delaney 350.1.13.10 ity of [place] 4.2.7.2.686 [phone] [address] 2020-12-29 2020-12-29 Outpatient Barbara ARREDONDO [facility] [id number] Univers 15:40:00 15:40:00 LAWRENCE romero o [facility] 2020-12-22 2020-12-22 Outpatient R RENZO [facility] [id number] Univers 16:00:00 16:00:00 STACEY ity of [facility] 2020-12-20 2020-12-20 Orders Doctor ROBB 1.2.840.114 [id number] Univers 00:00:00 00:00:00 Only Unassigned, BULL 350.1.13.10 ity of [place] [facility] 4.2.7.2.686 [place] [phone] [place] [address] [place] 2020-12-15 2020-12-15 [facility] 1.2.840.114 [id number] Univers 00:00:00 00:00:00 Stacey ELLIOTT 350.1.13.10 ity of [place] [phone] [facility] AND [facility] [address] [facility] 2020-12-09 2020-12-09 Patient Jake [facility] 1.2.840.114 [id number] Univers 00:00:00 00:00:00 Outreach Trevor PRIMARY 350.1.13.10 i ty of [facility] [place]2.[place].2.[place] [facility] [phone] Md dical [address] 2020-12-09 2020-12-09 Telephone Renzo [facility] 1.2.840.114 [id number] Univers 00:00:00 00:00:00 Stacey ELLIOTT 350.1.13.10 ity of [place] 4.2.7.2.686 [facility] [place] [phone] [facility] [address] [facility] 2020-11-24 2020-11-24 Juice Standardizer 1, [facility] 1.2.840.114 [id number] Univers 15:29:04 15:44:04 Visit Stacey Muller 350.1.13.10 ity of [place].7.2.686 [place] [phone] [facility] [address] 2020-11-24 2020-11-24 Outpatient R RENZO [facility] [id number] Univers 08:20:00 08:20:00 STACEY ity of [facility] 2020-11-20 2020-11-20 Juice Standardizer Vtc-Lab [facility] 1.2.840.114 [id number] Univers 16:04:06 16:19:06 Visit Stacey Muller 350.1.13.1 0 it[place] of [place].2.686 [place] C[place] [phone] [facility] [address] [facility] 2020-11-20 2020-11-20 Office Renzo [facility] 1.2.505.782 [id number] Univers 14:58:18 16:05:05 Visit Stacey ELLIOTT 350.1.13.10 it[place] [phone] [address] [facility] 2020-11-20 2020-11-20 Outpatient R RENZO [facility] [id number] Univers 15:30:00 15:30:[address] [facility] 2020-11-14 2020-11-14 Telephone [facility] 1.2.840.114 [id number] Univers 00:00:00 00:00:00 [facility] 350.1.13.10 [facility] 4.2.7.2.686 [place] [facility] [phone] [address] [facility] 2020-10-31 2020-10-31 Office [facility] 1.2.840.114 [id number] Univers 15:40:58 16:55:28 Visit Radha [facility] 350.1.13.10 i ty of [place] 4.2.7.2.686 Erick as Professio [phone] Md dical nal 044 [facility] One 2020-10-31 2020-10-31 Outpatient [facility] [id number] Univers 16:00:00 16:00:[address] [facility] 2020-10-30 2020-10-30 Juice Standardizer Lab, Adc [facility] Pob I [facility] 1.2. 840.114 [id number] Univers 16:01:12 16:09:12 Visit Bernard Gallardo 350.1.13.10 ity of [place] 4.2.7.2.686 Erick as Professio [phone] Md dical nal [address] [place] [address] One 2020-10-30 2020-10-30 Outpatient R PAULINA [facility] [id number] Univers 16:00:00 16:00:[address] [facility] 2020-10-30 2020-10-30 Outpatient R KIERA [facility] [id number] Univers 15:00:00 15:00:00 [facility] 2020-10-30 2020-10-30 Outpatient R SYEDA [facility] [id number] Univers 14:00:00 14:00:[address] [facility] 2020-10-29 2020-10-29 Juice Standardizer Lab, Adc Fam Pob I [facility] 1.2. 840.114 [id number] Univers 15:30:52 15:50:52 Visit Becky Rodriguezchris [facility] 350.1.13.10 ity of [place] 4.2.7.2.686 Erick as Professio [phone] Md dical nal [address] Office [facility] One 2020-10-29 2020-10-29 Outpatient R JENNIFER [facility] [id number] Univers 15:40:00 15:40:00 RADHA romero [facility] 2020-10-28 2020-10-28 Office Lila [facility] 1.2.268.099 [id number] Univers 15:42:36 16:12:36 [facility] 350.1.13.10 it y of [place] 4.2.7.2.686 [place] akanksha [place] [phone] [facility] [address] Building 2020-10-28 2020-10-28 Outpatient R LILA [facility] [id number] Univers 15:45:00 15:45:00 [facility] 2020-10-24 2020-10-24 Outpatient R GABRIEL WEI [facility] [id number] Univers 08:00:00 08:00:[address] [facility] 2020-10-23 2020-10-23 Outpatient Barbara RODRIGUEZ [facility] [id number] Univers 08:00:00 08:00:[address] [facility] 2020-10-22 2020-10-22 Telephone Nathaniel [facility] 1.2.840.114 [id number] Univers 00:00:00 00:00:00 Michael [facility] 350.1.13.10 it y of [place] 4.2.7.2.686 Erick as Professio [phone] Md dical nal [address] Building One 2020-10-20 2020-10-20 Transition Elle Castellon 1.2.840.114 [id number] Univers 00:00:00 00:00:00 of Care Melisa Morales 350.1.13.10 ity of [place] 4.2.7.2.686 [place] [phone] [facility] [address] 2020-10-16 2020-10-17 Hospital Fer Macedo 1.2.840.1 14 [id number] Univers 07:17:00 15:21:00 Encounter Abhishek Qureshi 350.1.13.10 ity of [facility] 4.2.7.2.686 [place]rick as [phone] [facility] [address] 2020-10-17 2020-10-17 Outpatient R GABRIEL WEI [facility] [id number] Univers 15:00:00 15:00:00 [facility] 2020-10-17 2020-10-17 Refill [facility] 1.2.840.114 [id number] Univers 00:00:00 00:00:00 Tereso Health 350.1.13.10 it y of [place].2.686 [place] [phone] [facility] [address] Office Building 2020-10-16 2020-10-16 Telephone [facility] 1.2.969.937 [id number] Univers 00:00:00 00:00:00 Radha A Health 350.1.13.10 i ty of [place] 4.2.7.2.686 Erick as Professio [phone] Md dicsc nal [address] Building One 2020-10-14 2020-10-14 Telephone [facility] 1.2.878.809 [id number] Univers 00:00:00 00:00:00 Gt [facility] 350.1.13.10 it y of [place] 4.2.7.2.686 [place]rick as Professio [phone] Md dical nal [address] Building One 2020-10-11 2020-10-11 Refill [facility] 1.2.840.114 [id number] Univers 00:00:00 00:00:00 [facility]t [facility] 350.1.13.10 it y of [place] 4.2.7.2.686 [place] as Professio [phone] [address] Office [facility] 2020-10-02 2020-10-02 Office Paulina [facility] 1.2.840.114 [id number] Univers 16:02:36 17:59:52 Visit Bernard Health 350.1.13.10 it y of [place] 4.2.7.2.686 [place] as Professio [phone] [address] One 2020-10-02 2020-10-02 Outpatient R PAULINA [facility] [id number] Univers 16:30:00 16:30:00 BERNARD romero [facility] 2020-10-01 2020-10-01 Orders Doctor CEZAR 1.2.840.114 [id number] Univers 00:00:00 00:00:00 Only Unassigned, BULL 350.1.13.10 ity of [place] [facility] 4.2.7.2.686 Erick as [phone] [address] 2020-10-01 2020-10-01 Telephone [facility] 1.2.254.050 [id number] Univers 00:00:00 00:00:00 Radha A Health 350.1.13.10 i ty of [place] 4.2.7.2.686 [place] as Professio [phone] [address] 2020-09-25 2020-09-25 Outpatient R PAULINA [facility] [id number] Univers 09:00:00 09:00:00 BERNARD romero [facility] 2020-09-25 2020-09-25 Telephone [facility] 1.2.456.689 [id number] Univers 00:00:00 00:00:00 Radha A Health 350.1.13.10 i ty of [place] 4.2.7.2.686 [place] as Professio [phone] [address] 2020-09-19 2020-09-19 Jhonny Purcell [facility] 1.2.840.114 [id number] Univers 00:00:00 00:00:00 Gt [facility] 350.1.13.10 it y of [place] 4.2.7.2.686 [place] as Professio [phone] [facility] 044 [facility] 2020-09-19 2020-09-19 Refle [facility] 1.2.840.114 [id number] Univers 00:00:00 00:00:00 [facility] 350.1.13.10 it y of [place] 4.2.7.2.686 [place] as Professio [phone] [facility] 044 [facility] 2020-09-16 2020-09-16 Telephone [facility] 1.2.840.114 [id number] Univers 00:00:00 00:00:00 Vivienne Rehtt 350.1.13.10 i ty of [place]2.[place].2.686 [place] [phone] Md dical nal 188 [facility] 2020-09-11 2020-09-11 Emergency [facility] [id number] Univers 15:06:00 17:24:00 SHAHNAZ blancochristian [facility] 2020-09-11 2020-09-11 Emergency [facility] 1.2.690.474 [id number] Univers 15:06:00 17:24:00 Shahnaz Delaney 350.1.13.10 i ty of [place] 4.2.7.2.686 [place] [phone] [facility] [address] [place] [address] 2020-09-11 2020-09-11 Office [facility] 1.2.840.114 [id number] Univers 13:40:50 14:10:50 Visit [facility] 350.1.13.10 it y of [place] 4.2.7.2.686 [place] as Professio [phone] [facility] 044 [facility] 2020-09-11 2020-09-11 Outpatient [facility] [id number] Univers 14:00:00 14:00:00 BERNARD blancochristian [facility] 2020-09-11 2020-09-11 Orders Doctor ROBB 1.2.840.114 [id number] Univers 00:00:00 00:00:00 Only Unassigned, BULL 350.1.13.10 [place] [facility] 4.2.7.2.686 Erick as [phone] [address] 2020-08-25 2020-08-25 Refle [facility] 1.2.840.114 [id number] Univers 00:00:00 00:00:00 [facility]t [facility] 350.1.13.10 it y of [place] 4.2.7.2.686 Erick as Professio [phone] [address] Office Building One 2020-08-22 2020-08-22 Refle [facility] 1.2.840.114 [id number] Univers 00:00:00 00:00:00 [facility] 350.1.13.10 it y of [place] 4.2.7.2.686 Erick as Professio [phone] [address] One 2020-03-20 2020-03-20 Outpatient Barbara ROQUE [facility] ACO [id number] Univers 00:00:00 00:00:00 DEDRICK ity of [facility] 2020-02-09 2020-02-09 Refle [facility] 1.2.840.114 [id number] Univers 00:00:00 00:00:00 [facility] 350.1.13.10 it y of [place] 4.2.7.2.686 Erick as Professio [phone] [address] One 2019-12-18 2019-12-18 Jhonny [facility] 1.2.840.114 [id number] Univers 00:00:00 00:00:00 [facility] Health 350.1.13.10 i ty of [place] 4.2.7.2.686 [place] as Professio [phone] [address] Office Building One 2019-12-14 2019-12-14 Jhonny [facility] 1.2.840.114 [id number] Univers 00:00:00 00:00:00 [facility]t [facility] 350.1.13.10 it y of [place] 4.2.7.2.686 Erick as Professio [phone] [address] Office Building One 2019-04-23 2019-04-26 Office [facility] 1.2.840.114 [id number] Univers 12:26:50 13:15:04 Visit Gt Learneroo 350.1.13.10 it y of [place] 4.2.7.2.686 Erick as Professio [phone] Md dical nal [address] Building One 2019-04-24 2019-04-25 Juice Standardizer Lab, Adc Fam Pob I [facility] 1.2. 840.114 [id number] Univers 09:10:55 10:11:54 Visit Radha Rodriguez Health 350.1.13.10 ity of [place] 4.2.7.2.686 Erick as Professio [phone] Md dical nal [address] Office Building One 2019-04-23 2019-04-23 Orders Doctor CEZAR 1.2.840.114 [id number] [facility] 00:00:00 00:00:00 Only Unassigned, BULL 350.1.13.10 ity of [place] [facility]PITAL 4.2.7.2.686 Erick as [phone] [address] Results Test Description Test Time Test Comments Results Result Comments Source POC-Glucose meter 2023-04-06 17:50:31 Test Item Value Reference Range Interpretation Comme nts POC-Glucose Meter (test code = 139 mg/dL 70-110 H : TESTED AT [facility] [address] [facility] [address] [place], 770 30: Pot Maker/Techni subhash ID = [id number] for Yung (contract )Jas Lab Interpretation (test code = Abnormal 36789-3) [facility] [id number] 17:50:31 Test Item Value Reference Range Interpretation Comments POC-GLUCOSE METER 139 mg/dL 70-110 H : TESTED A T [facility] 6720 (First To File) (test code = [facility], 1538) 02667: Pot Maker/Techni subhash ID = [id number] for Cecil high (contract)Joans POCT-GLUCOSE [id number] 12:44:43 Test Item Value Reference Range Interpretation Comments POC-GLUCOSE METER 209 mg/dL 70-110 H : TESTED A T [facility] ([employer]) (test code = [facility], 1538) 28730: Pot Maker/Techni subhash ID = [id number] for Keith Silvestre POCT-GLUCOSE [id number] 08:45:37 Test Item Value Reference Range Interpretation Comments POC-GLUCOSE METER 138 mg/dL 70-110 H : TESTED A T [facility] 6720 (BEAKER) (test code = [facility] [place], 1538) 16527: Pot Maker/Techni subhash ID = [id number] for Keith Silvestre CBC W/PLT COUNT & AUTO [id number] 05:55:32 Test Item Value Reference Range Interpretation Comments WHITE BLOOD CELL COUNT (BEAKER) 11.5 K/ L 3.5-10.5 H (test code = 775) RED BLOOD CELL COUNT (BEAKER) 5.24 M/ L 4.63-6.08 (test code = 761) HEMOGLOBIN (BEAKER) (test code = 14.7 GM/DL 13.7-17.5 410) HEMATOCRIT (BEAKER) (test code = 44.3 % 40.1-51.0 411) MEAN CORPUSCULAR VOLUME (BEAKER) 85 fL 79-92 (test code = 753) MEAN CORPUSCULAR HEMOGLOBIN 28.1 pg 25.7-32.2 (BEAKER) (test code = 751) MEAN CORPUSCULAR HEMOGLOBIN CONC 33.2 GM/DL 32.3-36.5 (BEAKER) (test code = 752) RED CELL DISTRIBUTION WIDTH 12.3 % 11.6-14.4 (BEAKER) (test code = 412) PLATELET COUNT (BEAKER) (test 210 K/CU MM 150-450 code = 756) MEAN PLATELET VOLUME (BEAKER) 10.3 fL 9.4-12.4 (test code = 754) NUCLEATED RED BLOOD CELLS 0 /100 WBC 0-0 (BEAKER) (test code = 413) NEUTROPHILS RELATIVE PERCENT 77 % (BEAKER) (test code = 429) LYMPHOCYTES RELATIVE PERCENT 15 % (BEAKER) (test code = 430) MONOCYTES RELATIVE PERCENT 6 % (BEAKER) (test code = 431) EOSINOPHILS RELATIVE PERCENT 2 % (BEAKER) (test code = 432) BASOPHILS RELATIVE PERCENT 0 % (BEAKER) (test code = 437) NEUTROPHILS ABSOLUTE COUNT 8.82 K/ L 1.78-5.38 H (BEAKER) (test code = 670) LYMPHOCYTES ABSOLUTE COUNT 1.67 K/ L 1.32-3.57 (BEAKER) (test code = 414) MONOCYTES ABSOLUTE COUNT (BEAKER) 0.63 K/ L 0.30-0.82 (test code = 415) EOSINOPHILS ABSOLUTE COUNT 0.24 K/ L 0.04-0.54 (BEAKER) (test code = 416) BASOPHILS ABSOLUTE COUNT (BEAKER) 0.04 K/ L 0.01-0.08 (test code = 417) IMMATURE GRANULOCYTES-RELATIVE 0.70 % 0.00-1.00 PERCENT (BEAKER) (test code = 2801) BASIC METABOLIC [id number] 05:25:35 Test Item Value Reference Range Interpretation Comments SODIUM (BEAKER) 139 meq/L 136-145 (test code = 381) POTASSIUM 4.0 meq/L 3.5-5.1 (BEAKER) (test code = 379) CHLORIDE (BEAKER) 108 meq/L 98-107 H (test code = 382) CO2 (BEAKER) 22 meq/L 22-29 (test code = 355) BLOOD UREA 29 mg/dL 7-21 H NITROGEN (BEAKER) (test code = 354) CREATININE 2.12 mg/dL 0.57-1.25 H (BEAKER) (test code = 358) GLUCOSE RANDOM 123 mg/dL 70-105 H (BEAKER) (test code = 652) CALCIUM (BEAKER) 8.6 mg/dL 8.4-10.2 (test code = 697) EGFR (BEAKER) 37 Interpretatio n of eGFR (test code = mL/min/1.73 values Stage De scription 1092) sq m Result G1 Viviana l or high >=90 G2 Mildly decreased 60-89 G3a Mildl y to moderately 45-5 9 G3b Moderately to s everely 30-44 G4 Severl y decreased 15-29 G5 Kidne y failure <15Reported eGF R is based on the CKD-EPI 2021 equation that d oes not use a race coefficientEsti mated GFR is not as accur ate as Creatinine Juliana aleah in predicting glom erular filtration rate . Estimated GFR is not appl icable for dialysis patien ts Pot Maker ID - LAURA [id number] 05:25:35 Test Item Value Reference Range Interpretation Comments MAGNESIUM (BEAKER) (test code = 1.9 mg/dL 1.6-2.6 627) Pot Maker ID - LAURA [id number] 05:25:35 Test Item Value Reference Range Interpretation Comments PHOSPHORUS (BEAKER) (test code = 3.9 mg/dL 2.3-4.7 604) Pot Maker ID - LAURA WCALCIUM, [id number] 04:55:21 Test Item Value Reference Range Interpretation Comments CALCIUM IONIZED (BEAKER) (test 1.14 mmol/L 1.12-1.27 code = 698) PH, BLOOD (BEAKER) (test code = 7.34 1810) POCT-GLUCOSE [id number] 21:28:25 Test Item Value Reference Range Interpretation Comments POC-GLUCOSE METER 183 mg/dL 70-110 H : TESTED A T [facility] 6720 (BEAKER) (test code = [facility], 1538) 04564: Pot Maker/Techni subhash ID = [id number] for Nahed laurenetienne Verena POCT-GLUCOSE [id number] 13:48:47 Test Item Value Reference Range Interpretation Comments POC-GLUCOSE METER 152 mg/dL 70-110 H : TESTED A T [facility] 6720 (BEAKER) (test code = [facility], 1538) 13151: Pot Maker/Techni subhash ID = [id number] for Natalee tuttle (contract)Juan Ramon POCT-GLUCOSE [id number] 10:07:31 Test Item Value Reference Range Interpretation Comments POC-GLUCOSE METER 150 mg/dL 70-110 H : TESTED A T [facility] 6720 (BEAKER) (test code = [facility], 1538) 72797: Pot Maker/Techni subhash ID = [id number] for Natalee tuttle (contract)Juan Ramon BASIC METABOLIC [id number] 05:24:43 Test Item Value Reference Range Interpretation Comments SODIUM (BEAKER) 141 meq/L 136-145 (test code = 381) POTASSIUM 4.3 meq/L 3.5-5.1 (BEAKER) (test code = 379) CHLORIDE (BEAKER) 109 meq/L 98-107 H (test code = 382) CO2 (BEAKER) 21 meq/L 22-29 L (test code = 355) BLOOD UREA 25 mg/dL 7-21 H NITROGEN (BEAKER) (test code = 354) CREATININE 1.92 mg/dL 0.57-1.25 H (BEAKER) (test code = 358) GLUCOSE RANDOM 102 mg/dL 70-105 (BEAKER) (test code = 652) CALCIUM (BEAKER) 8.8 mg/dL 8.4-10.2 (test code = 697) EGFR (BEAKER) 41 Interpretatio n of eGFR (test code = mL/min/1.73 values Stage De scription 1092) sq m Result G1 Viviana l or high >=90 G2 Mildly decreased 60-89 G3a Mildl y to moderately 45-5 9 G3b Moderately to s everely 30-44 G4 Severl y decreased 15-29 G5 Kidney failure <15Reported eGF R is based on the CKD-EPI 2020 equation that d oes not use a race coefficientEsti mated GFR is not as accur ate as Creatinine Juliana aleah in predicting glom erular filtration rate . Estimated GFR is not appl icable for dialysis patien ts Pot Maker ID - LAURA WCBC W/PLT COUNT & AUTO [id number] 04:58:02 Test Item Value Reference Range Interpretation Comments WHITE BLOOD CELL COUNT (BEAKER) 12.5 K/ L 3.5-10.5 H (test code = 775) RED BLOOD CELL COUNT (BEAKER) 5.23 M/ L 4.63-6.08 (test code = 761) HEMOGLOBIN (BEAKER) (test code = 14.8 GM/DL 13.7-17.5 410) HEMATOCRIT (BEAKER) (test code = 44.6 % 40.1-51.0 411) MEAN CORPUSCULAR VOLUME (BEAKER) 85 fL 79-92 (test code = 753) MEAN CORPUSCULAR HEMOGLOBIN 28.3 pg 25.7-32.2 (BEAKER) (test code = 751) MEAN CORPUSCULAR HEMOGLOBIN CONC 33.2 GM/DL 32.3-36.5 (BEAKER) (test code = 752) RED CELL DISTRIBUTION WIDTH 12.2 % 11.6-14.4 (BEAKER) (test code = 412) PLATELET COUNT (BEAKER) (test 212 K/CU MM 150-450 code = 756) MEAN PLATELET VOLUME (BEAKER) 10.3 fL 9.4-12.4 (test code = 754) NUCLEATED RED BLOOD CELLS 0 /100 WBC 0-0 (BEAKER) (test code = 413) NEUTROPHILS RELATIVE PERCENT 72 % (BEAKER) (test code = 429) LYMPHOCYTES RELATIVE PERCENT 19 % (BEAKER) (test code = 430) MONOCYTES RELATIVE PERCENT 6 % (BEAKER) (test code = 431) EOSINOPHILS RELATIVE PERCENT 3 % (BEAKER) (test code = 432) BASOPHILS RELATIVE PERCENT 1 % (BEAKER) (test code = 437) NEUTROPHILS ABSOLUTE COUNT 8.96 K/ L 1.78-5.38 H (BEAKER) (test code = 670) LYMPHOCYTES ABSOLUTE COUNT 2.35 K/ L 1.32-3.57 (BEAKER) (test code = 414) MONOCYTES ABSOLUTE COUNT (BEAKER) 0.73 K/ L 0.30-0.82 (test code = 415) EOSINOPHILS ABSOLUTE COUNT 0.32 K/ L 0.04-0.54 (BEAKER) (test code = 416) BASOPHILS ABSOLUTE COUNT (BEAKER) 0.07 K/ L 0.01-0.08 (test code = 417) IMMATURE GRANULOCYTES-RELATIVE 0.70 % 0.00-1.00 PERCENT (BEAKER) (test code = 2801) POCT-GLUCOSE [id number] 21:54:44 Test Item Value Reference Range Interpretation Comments POC-GLUCOSE METER 164 mg/dL 70-110 H : TESTED A T [facility] 6720 (BEAKER) (test code = [facility], 153) 67585: Pot Maker/Techni subhash ID = [id number] for Shree Syed POCT-GLUCOSE [id number] 17:34:46 Test Item Value Reference Range Interpretation Comments POC-GLUCOSE METER 122 mg/dL 70-110 H : TESTED A T [facility] 6720 (BEAKER) (test code = [facility], 153) 81543: Pot Maker/Techni subhash ID = [id number] for RYAN LIU POCT-GLUCOSE [id number] 13:14:36 Test Item Value Reference Range Interpretation Comments POC-GLUCOSE METER 194 mg/dL 70-110 H : TESTED A T [facility] 6720 (BEAKER) (test code = [facility], 1538) 29949: Pot Maker/Techni subhash ID = [id number] for LAYA LIUE POCT-GLUCOSE [id number] 07:39:29 Test Item Value Reference Range Interpretation Comments POC-GLUCOSE METER 153 mg/dL 70-110 H : TESTED A T [facility] 6720 (BEAKER) (test code = [facility], 1538) 10882: Pot Maker/Techni subhash ID = [id number] for DIANA LIULAE POCT-GLUCOSE [id number] 16:33:27 Test Item Value Reference Range Interpretation Comments POC-GLUCOSE METER 138 mg/dL 70-110 H : TESTED A T [facility] 6720 (BEAKER) (test code = [facility], 1538) 89964: Pot Maker/Techni subhash ID = [id number] for ARUNA-HENRY, S HIKARA POCT-GLUCOSE [id number] 13:05:21 Test Item Value Reference Range Interpretation Comments POC-GLUCOSE METER 189 mg/dL 70-110 H : TESTED A T [facility] 6720 (BEAKER) (test code = [facility], 1538) 31207: Pot Maker/Techni subhash ID = [id number] for ARUNA-HENRY, S HIKARA POCT-GLUCOSE [id number] 08:19:34 Test Item Value Reference Range Interpretation Comments POC-GLUCOSE METER 124 mg/dL 70-110 H : TESTED A T [facility] 6720 (BEAKER) (test code = [facility], 1538) [id number]: Pot Maker/Techni subhash ID = [id number] for ARUNA-HENRY, S HIKARA BASIC METABOLIC [id number] 05:33:31 Test Item Value Reference Range Interpretation Comments SODIUM (BEAKER) 140 meq/L 136-145 (test code = 381) POTASSIUM 4.0 meq/L 3.5-5.1 (BEAKER) (test code = 379) CHLORIDE (BEAKER) 109 meq/L 98-107 H (test code = 382) CO2 (BEAKER) 23 meq/L 22-29 (test code = 355) BLOOD UREA 24 mg/dL 7-21 H NITROGEN (BEAKER) (test code = 354) CREATININE 1.71 mg/dL 0.57-1.25 H (BEAKER) (test code = 358) GLUCOSE RANDOM 103 mg/dL 70-105 (BEAKER) (test code = 652) CALCIUM (BEAKER) 8.1 mg/dL 8.4-10.2 L (test code = 697) EGFR (BEAKER) 47 Interpretatio n of eGFR (test code = mL/min/1.73 values Stage De scription 1092) sq m Result G1 Viviana l or high >=90 G2 Mildly decreased 60-89 G3a Mildl y to moderately 45-5 9 G3b Moderately to s everely 30-44 G4 Severl y decreased 15-29 G5 Kidne y failure <15Reported eGF R is based on the CKD-EPI 2020 equation that d oes not use a race coefficientEsti mated GFR is not as accur ate as Creatinine Juliana aleah in predicting glom erular filtration rate . Estimated GFR is not appl icable for dialysis patien ts Pot Maker ID - VIOLETTA [id number] 05:33:31 Test Item Value Reference Range Interpretation Comments MAGNESIUM (BEAKER) (test code = 1.8 mg/dL 1.6-2.6 627) Pot Maker ID - VIOLETTA BCBC W/PLT COUNT & AUTO [id number] 05:08:43 Test Item Value Reference Range Interpretation Comments WHITE BLOOD CELL COUNT (BEAKER) 10.8 K/ L 3.5-10.5 H (test code = 775) RED BLOOD CELL COUNT (BEAKER) 4.85 M/ L 4.63-6.08 (test code = 761) HEMOGLOBIN (BEAKER) (test code = 13.7 GM/DL 13.7-17.5 410) HEMATOCRIT (BEAKER) (test code = 41.9 % 40.1-51.0 411) MEAN CORPUSCULAR VOLUME (BEAKER) 86 fL 79-92 (test code = 753) MEAN CORPUSCULAR HEMOGLOBIN 28.2 pg 25.7-32.2 (BEAKER) (test code = 751) MEAN CORPUSCULAR HEMOGLOBIN CONC 32.7 GM/DL 32.3-36.5 (BEAKER) (test code = 752) RED CELL DISTRIBUTION WIDTH 12.3 % 11.6-14.4 (BEAKER) (test code = 412) PLATELET COUNT (BEAKER) (test 196 K/CU MM 150-450 code = 756) MEAN PLATELET VOLUME (BEAKER) 10.1 fL 9.4-12.4 (test code = 754) NUCLEATED RED BLOOD CELLS 0 /100 WBC 0-0 (BEAKER) (test code = 413) NEUTROPHILS RELATIVE PERCENT 71 % (BEAKER) (test code = 429) LYMPHOCYTES RELATIVE PERCENT 20 % (BEAKER) (test code = 430) MONOCYTES RELATIVE PERCENT 5 % (BEAKER) (test code = 431) EOSINOPHILS RELATIVE PERCENT 3 % (BEAKER) (test code = 432) BASOPHILS RELATIVE PERCENT 1 % (BEAKER) (test code = 437) NEUTROPHILS ABSOLUTE COUNT 7.71 K/ L 1.78-5.38 H (BEAKER) (test code = 670) LYMPHOCYTES ABSOLUTE COUNT 2.13 K/ L 1.32-3.57 (BEAKER) (test code = 414) MONOCYTES ABSOLUTE COUNT (BEAKER) 0.59 K/ L 0.30-0.82 (test code = 415) EOSINOPHILS ABSOLUTE COUNT 0.30 K/ L 0.04-0.54 (BEAKER) (test code = 416) BASOPHILS ABSOLUTE COUNT (BEAKER) 0.05 K/ L 0.01-0.08 (test code = 417) IMMATURE GRANULOCYTES-RELATIVE 0.50 % 0.00-1.00 PERCENT (BEAKER) (test code = 2801) POCT-GLUCOSE [id number] 21:46:31 Test Item Value Reference Range Interpretation Comments POC-GLUCOSE METER 179 mg/dL 70-110 H : TESTED A T [facility] 6720 (BEAKER) (test code = [facility], 153) [id number]: Pot Maker/Techni subhash ID = [id number] for CORIN SHEY POCT-GLUCOSE [id number] 17:30:40 Test Item Value Reference Range Interpretation Comments POC-GLUCOSE METER 155 mg/dL 70-110 H : TESTED A T [facility] 6720 (BEAKER) (test code = [facility], 153) 71677: Pot Maker/Techni subhash ID = [id number] for Nirmala Keith irving POCT-GLUCOSE [id number] 12:07:58 Test Item Value Reference Range Interpretation Comments POC-GLUCOSE METER 200 mg/dL 70-110 H : TESTED A T [facility] 6720 (BEAKER) (test code = [facility] [place], 1538) [id number]: Pot Maker/Techni subhash ID = [id number] for Keith Silvestre POCT-GLUCOSE [id number] 08:11:28 Test Item Value Reference Range Interpretation Comments POC-GLUCOSE METER 174 mg/dL 70-110 H : TESTED A T [facility] 6720 (BEAKER) (test code = MAURICIO Jimenez [place], 1538) 732[address]: Pot Maker/Techni subhash ID = [id number] for Louis Heard [id number] 04:14:48 Test Item Value Reference Range Interpretation Comments MAGNESIUM (BEAKER) (test code = 1.8 mg/dL 1.6-2.6 627) Pot Maker ID - ADMINBASIC METABOLIC [id number] 04:14:47 Test Item Value Reference Range Interpretation Comments SODIUM (BEAKER) 139 meq/L 136-145 (test code = 381) POTASSIUM 4.0 meq/L 3.5-5.1 (BEAKER) (test code = 379) CHLORIDE (BEAKER) 107 meq/L 98-107 (test code = 382) CO2 (BEAKER) 22 meq/L 22-29 (test code = 355) BLOOD UREA 22 mg/dL 7-21 H NITROGEN (BEAKER) (test code = 354) CREATININE 1.64 mg/dL 0.57-1.25 H (BEAKER) (test code = 358) GLUCOSE RANDOM 142 mg/dL 70-105 H (BEAKER) (test code = 652) CALCIUM (BEAKER) 8.5 mg/dL 8.4-10.2 (test code = 697) EGFR (BEAKER) 50 Interpretatio n of eGFR (test code = mL/min/1.73 values Stage De scription 1092) sq m Result G1 Viviana l or high >=90 G2 Mildly decreased 60-89 G3a Mildl y to moderately 45-5 9 G3b Moderately to s everely 30-44 G4 Severl y decreased 15-29 G5 Kidney failure <15Reported eGF R is based on the CKD-EPI 2020 equation that d oes not use a race coefficientEsti mated GFR is not as accur ate as Creatinine Juliana bullard in predicting glom erular filtration rate . Estimated GFR is not appl icable for dialysis patien ts Pot Maker ID - ADMINCBC W/PLT COUNT & AUTO [id number] 03:50:48 Test Item Value Reference Range Interpretation Comments WHITE BLOOD CELL COUNT (BEAKER) 12.0 K/ L 3.5-10.5 H (test code = 775) RED BLOOD CELL COUNT (BEAKER) 5.06 M/ L 4.63-6.08 (test code = 761) HEMOGLOBIN (BEAKER) (test code = 14.3 GM/DL 13.7-17.5 410) HEMATOCRIT (BEAKER) (test code = 42.9 % 40.1-51.0 411) MEAN CORPUSCULAR VOLUME (BEAKER) 85 fL 79-92 (test code = 753) MEAN CORPUSCULAR HEMOGLOBIN 28.3 pg 25.7-32.2 (BEAKER) (test code = 751) MEAN CORPUSCULAR HEMOGLOBIN CONC 33.3 GM/DL 32.3-36.5 (BEAKER) (test code = 752) RED CELL DISTRIBUTION WIDTH 12.3 % 11.6-14.4 (BEAKER) (test code = 412) PLATELET COUNT (BEAKER) (test 208 K/CU MM 150-450 code = 756) MEAN PLATELET VOLUME (BEAKER) 10.2 fL 9.4-12.4 (test code = 754) NUCLEATED RED BLOOD CELLS 0 /100 WBC 0-0 (BEAKER) (test code = 413) NEUTROPHILS RELATIVE PERCENT 76 % (BEAKER) (test code = 429) LYMPHOCYTES RELATIVE PERCENT 15 % (BEAKER) (test code = 430) MONOCYTES RELATIVE PERCENT 6 % (BEAKER) (test code = 431) EOSINOPHILS RELATIVE PERCENT 3 % (BEAKER) (test code = 432) BASOPHILS RELATIVE PERCENT 1 % (BEAKER) (test code = 437) NEUTROPHILS ABSOLUTE COUNT 9.13 K/ L 1.78-5.38 H (BEAKER) (test code = 670) LYMPHOCYTES ABSOLUTE COUNT 1.79 K/ L 1.32-3.57 (BEAKER) (test code = 414) MONOCYTES ABSOLUTE COUNT (BEAKER) 0.68 K/ L 0.30-0.82 (test code = 415) EOSINOPHILS ABSOLUTE COUNT 0.30 K/ L 0.04-0.54 (BEAKER) (test code = 416) BASOPHILS ABSOLUTE COUNT (BEAKER) 0.07 K/ L 0.01-0.08 (test code = 417) IMMATURE GRANULOCYTES-RELATIVE 0.60 % 0.00-1.00 PERCENT (BEAKER) (test code = 2801) POCT-GLUCOSE [id number] 21:54:36 Test Item Value Reference Range Interpretation Comments POC-GLUCOSE METER 235 mg/dL 70-110 H : TESTED A T [facility] 6720 (BEAKER) (test code = [facility], 1538) 67867: Pot Maker/Techni subhash ID = [id number] for LALO MADDOX POCT-GLUCOSE [id number] 16:51:02 Test Item Value Reference Range Interpretation Comments POC-GLUCOSE METER 169 mg/dL 70-110 H : TESTED A T [facility] 6720 (BEAKER) (test code = [facility], 1538) 54419: Pot Maker/Techni subhash ID = [id number] for Akanksha CERVANTES HIV-1 ANTIGEN WITH HIV-1/2 [id number] 16:09:03 Test Item Value Reference Range Interpretation Comments HIV-1 ANTIGEN WITH HIV 1\\T\\2 Nonreactive Nonreactive ANTIBODY (2) (SG) (test code = 2586) Pot Maker ID - ADMINVITAMIN [id number] 11:20:41 Test Item Value Reference Range Interpretation Comments VITAMIN B12 (BEAKER) (test code = 397 pg/mL 151-026 572) Pot Maker ID - MARCOCTA [id number] 10:45:24 [facility] 1965 Sex: MCTA BRAIN, CTA CAROTIDBRAIN CT WITHOUT CONTRASTINDICATION: Stroke, follow upCOMPARISON: CT head of the samedateTECHNIQUE:Rapid acquisition spiral images were obtained between the aortic archand the cranial vertex during intravenous contrast infusion toreconstruct axial images and angiographic 3D maximum intensityprojections (MIP). 3-D volumetric reformatted images were created at [employer] workstation. Precontrast images of the brain were alsoobtained. Stenosis evaluation reported in compliance with NASCET criteria.DOSE REDUCTION: Dose modulation, iterative reconstruction, and/orweight-based adjustment of the mA/kV was utilized to reduce theradiation dose to as low as reasonably achievable.FINDINGS:NECT BRAIN:Evolving recent appearing infarct within the right LAKEISHA and MCAterritory. Multiple remote infarcts of the LAKEISHA territories and left MCAterritory are also demonstrated.No acute intracranial hemorrhage.No hydrocephalus.Orbits are within normal limits.No obstructive paranasal sinus disease.CTA BRAIN:Internal carotid arteries: Severe atherosclerosis of the leftintracranial internal carotid arteries with presumed flow limitingstenosis. Right intracranial internal carotid artery is patent.Middle cerebral arteries: The right MCA M2 anterior division is markedlydiminutive and occluded distally. The left MCA M1 segment appearschronically occluded, or, conceivably, may be severely atheroscleroticwith flow-limiting stenosis. The left MCA M2 segments appear widelypatent. There is presumably collateral circulation to this territory. Anterior cerebral arteries: The right LAKE[place]HA A2 segment does not opacifyfor several centimeters and is likely occluded (and/or severelyatherosclerotic with flow- limiting stenosis). Left LAKEISHA A1-A2 branchesdemonstrate normal contrast enhancement.Basilar system: Normal contrast opacification of the vertebrobasilarsystem.Posterior cerebral arteries: Normal contrast opacification of thebilateral BUDGET CLERK P1-P2 branches.Venous opacification: Major dural sinuses unremarkable for bolus timing.Additional findings: None.CTA NECK:Common carotid arteries: There is normal contrast opacification of thebilateral common carotid arteries.Cervical internal carotid arteries: 50% stenosis of the right ICA byNASCET criteria. No significant stenosis of the left ICA by NASCETcriteria. Vertebral arteries. Arch anatomy: Conventional.Nonvascular findings:No acute findings within the neck soft tissues. IMPRESSION:1. Evolving recent appearing infarct within the right LAKEISHA and MCAterritory. 2. Multiple remote infarcts of the LAKEISHA territories and left MCAterritory are also demonstrated.3. No acute intracranial hemorrhage.4. The right MCA M2 anterior division is markedly diminutive andoccluded distally. The right LAKE[place]HA A2 segment does not opacify for severalcentimeters and is likely occluded (and/or severely atherosclerotic withflow-limiting stenosis). 5. Severe atherosclerosis of the left intracranial internal carotidarteries with presumed flow limiting stenosis. The left MCA M1 segmentappears chronically occluded, or, conceivably, may be severelyatherosclerotic with flow-limiting stenosis. The left MCA M2 segmentsappear widely patent. There is presumably collateral circulation to thisterritory. Electronically Signed By: Mariam Guerra04/01/2023 10:47 CDTWorkstation Name: [id number] 10:45:24 [facility] : 1965 Sex: MCTA BRAIN, CTA CAROTIDBRAIN CT WITHOUT CONTRASTINDICATION: Stroke, follow upCOMPARISON: CT head of the samedateTECHNIQUE:Rapid acquisition spiral images were obtained between the aortic archand the cranial vertex during intravenous contrast infusion toreconstruct axial images and angiographic 3D maximum intensityprojections (MIP). 3-D volumetric reformatted images were created at [employer] workstation. Precontrast images of the brain were alsoobtained. Stenosis evaluation reported in compliance with NASCET criteria.DOSE REDUCTION: Dose modulation, iterative reconstruction, and/orweight-based adjustment of the mA/kV was utilized to reduce theradiation dose to as low as reasonably achievable.FINDINGS:NECT BRAIN:Evolving recent appearing infarct within the right LAKEISHA and MCAterritory. Multiple remote infarcts of the LAKEISHA territories and left MCAterritory are also demonstrated.No acute intracranial hemorrhage.No hydrocephalus.Orbits are within normal limits.No obstructive paranasal sinus disease.CTA BRAIN:Internal carotid arteries: Severe atherosclerosis of the leftintracranial internal carotid arteries with presumed flow limitingstenosis. Right intracranial internal carotid artery is patent.Middle cerebral arteries: The right MCA M2 anterior division is markedlydiminutive and occluded distally. The left MCA M1 segment appearschronically occluded, or, conceivably, may be severely atheroscleroticwith flow-limiting stenosis. The left MCA M2 segments appear widelypatent. There is presumably collateral circulation to this territory. Anterior cerebral arteries: The right LAKEISHA A2 segment does not opacifyfor several centimeters and is likely occluded (and/or severelyatherosclerotic with flow- limiting stenosis). Left LAKEISHA A1-A2 branchesdemonstrate normal contrast enhancement.Basilar system: Normal contrast opacification of the vertebrobasilarsystem.Posterior cerebral arteries: Normal contrast opacification of thebilateral BUDGET CLERK P1-P2 branches.Venous opacification: Major dural sinuses unremarkable for bolus timing.Additional findings: None.CTA NECK:Common carotid arteries: There is normal contrast opacification of thebilateral common carotid arteries.Cervical internal carotid arteries: 50% stenosis of the right ICA byNASCET criteria. No significant stenosis of the left ICA by NASCETcriteria. Vertebral arteries. Arch anatomy: Conventional.Nonvascular findings:No acute findings within the neck soft tissues. IMPRESSION:1. Evolving recent appearing infarct within the right LAKEISHA and MCAterritory. 2. Multiple remote infarcts of the LAKEISHA territories and left MCAterritory are also demonstrated.3. No acute intracranial hemorrhage.4. The right MCA M2 anterior division is markedly diminutive andoccluded distally. The right LAKESIHA A2 segment does not opacify for severalcentimeters and is likely occluded (and/or severely atherosclerotic withflow-limiting stenosis). 5. Severe atherosclerosis of the left intracranial internal carotidarteries with presumed flow limiting stenosis. The left MCA M1 segmentappears chronically occluded, or, conceivably, may be severelyatherosclerotic with flow-limiting stenosis. The left MCA M2 segmentsappear widely patent. There is presumably collateral circulation to thisterritory. Electronically Signed By: Mariam Guerra04/01/2023 10:47 CDTWorkstation Name: [id number] 10:20:37 Test Item Value Reference Range Interpretation Comments POC-GLUCOSE METER 188 mg/dL 70-110 H : TESTED A T [facility] 6720 (BEAKER) (test code = [place], 1538) [id number]: Pot Maker/Techni subhash ID = [id number] for Humberto gill, Mini BASIC METABOLIC [id number] 05:50:53 Test Item Value Reference Range Interpretation Comments SODIUM (BEAKER) 140 meq/L 136-145 (test code = 381) POTASSIUM 4.1 meq/L 3.5-5.1 (BEAKER) (test code = 379) CHLORIDE (BEAKER) 107 meq/L 98-107 (test code = 382) CO2 (BEAKER) 22 meq/L 22-29 (test code = 355) BLOOD UREA 22 mg/dL 7-21 H NITROGEN (BEAKER) (test code = 354) CREATININE 1.76 mg/dL 0.57-1.25 H (BEAKER) (test code = 358) GLUCOSE RANDOM 155 mg/dL 70-105 H (BEAKER) (test code = 652) CALCIUM (BEAKER) 8.4 mg/dL 8.4-10.2 (test code = 697) EGFR (BEAKER) 46 Interpretatio n of eGFR (test code = mL/min/1.73 values Stage De scription 1092) sq m Result G1 Viviana l or high >=90 G2 Mildly decreased 60-89 G3a Mildl y to moderately 45-5 9 G3b Moderately to s everely 30-44 G4 Severl y decreased 15-29 G5 Kidney failure <15Reported eGF R is based on the CKD-EPI 2020 equation that d oes not use a race coefficientEsti mated GFR is not as accur ate as Creatinine Juliana aleah in predicting glom erular filtration rate . Estimated GFR is not appl icable for dialysis patien ts Pot Maker ID - [id number] 05:50:53 Test Item Value Reference Range Interpretation Comments MAGNESIUM (BEAKER) (test code = 1.8 mg/dL 1.6-2.6 627) Pot Maker ID - [id number] 05:50:53 Test Item Value Reference Range Interpretation Comments PHOSPHORUS (BEAKER) (test code = 3.2 mg/dL 2.3-4.7 604) Pot Maker ID - MARCOCBC W/PLT COUNT & AUTO [id number] 05:18:26 Test Item Value Reference Range Interpretation Comments WHITE BLOOD CELL COUNT (BEAKER) 10.2 K/ L 3.5-10.5 (test code = 775) RED BLOOD CELL COUNT (BEAKER) 5.13 M/ L 4.63-6.08 (test code = 761) HEMOGLOBIN (BEAKER) (test code = 14.4 GM/DL 13.7-17.5 410) HEMATOCRIT (BEAKER) (test code = 43.8 % 40.1-51.0 411) MEAN CORPUSCULAR VOLUME (BEAKER) 85 fL 79-92 (test code = 753) MEAN CORPUSCULAR HEMOGLOBIN 28.1 pg 25.7-32.2 (BEAKER) (test code = 751) MEAN CORPUSCULAR HEMOGLOBIN CONC 32.9 GM/DL 32.3-36.5 (BEAKER) (test code = 752) RED CELL DISTRIBUTION WIDTH 12.3 % 11.6-14.4 (BEAKER) (test code = 412) PLATELET COUNT (BEAKER) (test 201 K/CU MM 150-450 code = 756) MEAN PLATELET VOLUME (BEAKER) 10.1 fL 9.4-12.4 (test code = 754) NUCLEATED RED BLOOD CELLS 0 /100 WBC 0-0 (BEAKER) (test code = 413) NEUTROPHILS RELATIVE PERCENT 69 % (BEAKER) (test code = 429) LYMPHOCYTES RELATIVE PERCENT 21 % (BEAKER) (test code = 430) MONOCYTES RELATIVE PERCENT 6 % (BEAKER) (test code = 431) EOSINOPHILS RELATIVE PERCENT 3 % (BEAKER) (test code = 432) BASOPHILS RELATIVE PERCENT 1 % (BEAKER) (test code = 437) NEUTROPHILS ABSOLUTE COUNT 7.03 K/ L 1.78-5.38 H (BEAKER) (test code = 670) LYMPHOCYTES ABSOLUTE COUNT 2.13 K/ L 1.32-3.57 (BEAKER) (test code = 414) MONOCYTES ABSOLUTE COUNT (BEAKER) 0.61 K/ L 0.30-0.82 (test code = 415) EOSINOPHILS ABSOLUTE COUNT 0.32 K/ L 0.04-0.54 (BEAKER) (test code = 416) BASOPHILS ABSOLUTE COUNT (BEAKER) 0.05 K/ L 0.01-0.08 (test code = 417) IMMATURE GRANULOCYTES-RELATIVE 0.50 % 0.00-1.00 PERCENT (AKER) (test code = 2801) CALCIUM, [id number] 05:03:59 Test Item Value Reference Range Interpretation Comments CALCIUM IONIZED ([facility] (test 1.10 mmol/L 1.12-1.27 L code = 698) PH, BLOOD ([facility] (test code = 7.35 1810) POCT-GLUCOSE [id number] 23:01:36 Test Item Value Reference Range Interpretation Comments POC-GLUCOSE METER 158 mg/dL 70-110 H : TESTED A T [facility] 6720 ([facility] (test code = [facility], 1538) [id number]: Pot Maker/Techni subhash ID = [id number] for MAYO ALEJO POCT-GLUCOSE [id number] 17:17:19 Test Item Value Reference Range Interpretation Comments POC-GLUCOSE METER 165 mg/dL 70-110 H : TESTED A T [facility] 6720 ([facility] (test code [facility], = 1538) [id number]: Pot Maker/Techni subhash ID = [id number] for Yeimi Reyes POCT-GLUCOSE [id number] 13:50:34 Test Item Value Reference Range Interpretation Comments POC-GLUCOSE METER 202 mg/dL 70-110 H : TESTED A T [facility] 6720 ([facility] (test code [facility], = 1538) 36585: Pot Maker/Techni subhash ID = [id number] for Yeimi Reyes [id number] 12:51:22 Test Item Value Reference Range Interpretation Comments RPR SCREEN ([facility] (test code = Nonreactive Nonreactive 420) HEMOGLOBIN [id number] 10:20:20 Test Item Value Reference Range Interpretation Comments HEMOGLOBIN A1C 6.6 % See_Comment H [Automated m essage] ELECTROPHORESIS ([facility] The system which (test code = 3811) generated this result transmitted ref erence range: <=5.6%. The reference range was not used to int erpret this result as normal/abnormal . "The A1c is measured using a NGSP-certified method. HbA1c value equal to or greater than 6.5% as thediagnosis cutoff for diabetes. An HbA1c value of 5.7- 6.4% indicates increased risk for diabetes (prediabetes)."Pot Maker ID - ADM VITAMIN [id number] 07:08:17 Test Item Value Reference Range Interpretation Comments VITAMIN B12 (BEAKER) (test code = 395 pg/mL 213-816 774) Pot Maker ID - MARCOTSH/FREE T4 IF [id number] 07:08:17 Test Item Value Reference Range Interpretation Comments THYROID STIMULATING HORMONE 0.720 uIU/mL 0.350-4.940 (BEAKER) (test code = 772) Pot Maker ID - MARCOCOMPREHENSIVE METABOLIC [id number] 06:50:58 Test Item Value Reference Range Interpretation Comments TOTAL PROTEIN 6.7 gm/dL 6.0-8.3 (BEAKER) (test code = 770) ALBUMIN (BEAKER) 3.8 g/dL 3.5-5.0 (test code = 1145) ALKALINE 95 U/L 40-150 PHOSPHATASE (BEAKER) (test code = 346) BILIRUBIN TOTAL 0.7 mg/dL 0.2-1.2 (BEAKER) (test code = 377) SODIUM (BEAKER) 140 meq/L 136-145 (test code = 381) POTASSIUM (BEAKER) 3.9 meq/L 3.5-5.1 (test code = 379) CHLORIDE (BEAKER) 108 meq/L 98-107 H (test code = 382) CO2 (BEAKER) (test 21 meq/L 22-29 L code = 355) BLOOD UREA 22 mg/dL 7-21 H NITROGEN (BEAKER) (test code = 354) CREATININE 1.63 mg/dL 0.57-1.25 H (BEAKER) (test code = 358) GLUCOSE RANDOM 138 mg/dL 70-105 H (BEAKER) (test code = 652) CALCIUM (BEAKER) 8.5 mg/dL 8.4-10.2 (test code = 697) AST (SGOT) 26 U/L 5-34 (BEAKER) (test code = 353) ALT (SGPT) 29 U/L 6-55 (BEAKER) (test code = 347) EGFR (BEAKER) 50 Interpretatio n of eGFR (test code = 1092) mL/min/1.[address] age Description sq m Result G1 Norm al or high >=90 G2 Mildly decreased 60-89 G3a Mildl y to moderately 45-5 9 G3b Moderately to s everely 30-44 G4 Severl y decreased 15-29 G5 Kidney failure <15Reported eGF R is based on the CKD-EPI 2020 equation that d oes not use a race coefficientEsti mated GFR is not as accur ate as Creatinine Juliana aleah in predicting glom erular filtration rate . Estimated GFR is not appl icable for dialysis patien ts Pot Maker ID - MARCOLIPID [id number] 06:50:58 Test Item Value Reference Range Interpretation Comments TRIGLYCERIDES (BEAKER) (test code = 198 mg/dL 540) CHOLESTEROL (BEAKER) (test code = 170 mg/dL 631) HDL CHOLESTEROL (BEAKER) (test code 28 mg/dL = 976) LDL CHOLESTEROL CALCULATED (BEAKER) 102 mg/dL (test code = 633) Triglyceride Reference Range: Low Risk <150 Borderline 150-199 High Risk 200- 499 Very High Risk >=500Cholesterol Reference Range: Low Risk <200 Borderline 200-239 High Risk >240HDL Cholesterol Reference Range: Low Risk >=60 High Risk <40LDL Cholesterol Reference Range: Optimal <100 Near Optimal 100-129 Borderline 130-159 High 160-189 Very High >=190 Pot Maker ID - ALBERTOOPOCT-GLUCOSE [id number] 06:50:51 Test Item Value Reference Range Interpretation Comments POC-GLUCOSE METER 152 mg/dL 70-110 H : TESTED A T [facility]20 (BEAKER) (test code = MAURICIO Jimenez [facility], 1538) [id number]: Pot Maker/Techni subhash ID = [id number] for LALO MADDOX CBC W/PLT COUNT & AUTO [id number] 06:20:36 Test Item Value Reference Range Interpretation Comments WHITE BLOOD CELL COUNT (BEAKER) 10.8 K/ L 3.5-10.5 H (test code = 775) RED BLOOD CELL COUNT (BEAKER) 4.99 M/ L 4.63-6.08 (test code = 761) HEMOGLOBIN (BEAKER) (test code = 14.2 GM/DL 13.7-17.5 410) HEMATOCRIT (BEAKER) (test code = 42.5 % 40.1-51.0 411) MEAN CORPUSCULAR VOLUME (BEAKER) 85 fL 79-92 (test code = 753) MEAN CORPUSCULAR HEMOGLOBIN 28.5 pg 25.7-32.2 (BEAKER) (test code = 751) MEAN CORPUSCULAR HEMOGLOBIN CONC 33.4 GM/DL 32.3-36.5 (BEAKER) (test code = 752) RED CELL DISTRIBUTION WIDTH 12.5 % 11.6-14.4 (BEAKER) (test code = 412) PLATELET COUNT (BEAKER) (test 219 K/CU MM 150-450 code = 756) MEAN PLATELET VOLUME (BEAKER) 10.1 fL 9.4-12.4 (test code = 754) NUCLEATED RED BLOOD CELLS 0 /100 WBC 0-0 (BEAKER) (test code = 413) NEUTROPHILS RELATIVE PERCENT 77 % (BEAKER) (test code = 429) LYMPHOCYTES RELATIVE PERCENT 15 % (BEAKER) (test code = 430) MONOCYTES RELATIVE PERCENT 6 % (BEAKER) (test code = 431) EOSINOPHILS RELATIVE PERCENT 2 % (BEAKER) (test code = 432) BASOPHILS RELATIVE PERCENT 1 % (BEAKER) (test code = 437) NEUTROPHILS ABSOLUTE COUNT 8.26 K/ L 1.78-5.38 H (BEAKER) (test code = 670) LYMPHOCYTES ABSOLUTE COUNT 1.63 K/ L 1.32-3.57 (BEAKER) (test code = 414) MONOCYTES ABSOLUTE COUNT (BEAKER) 0.60 K/ L 0.30-0.82 (test code = 415) EOSINOPHILS ABSOLUTE COUNT 0.18 K/ L 0.04-0.54 (BEAKER) (test code = 416) BASOPHILS ABSOLUTE COUNT (BEAKER) 0.06 K/ L 0.01-0.08 (test code = 417) IMMATURE GRANULOCYTES-RELATIVE 0.40 % 0.00-1.00 PERCENT (BEAKER) (test code = 2801) aPTT (for use with Heparin Infusion)2022-08-28 15:39:40 Test Item Value Reference Range Interpretation Comments APTT Patient (test code See_Comment H [Au tomated message] = 3173-2) The system Evrent generated this result transmitted ref erence range: 26 - 36 Seconds. The reference range was not used to int erpret this result as normal/abnormal . Lab Interpretation (test Abnormal code = 79545-9) [facility]2022-08-28 15:39:40 Test Item Value Reference Range Interpretation Comments APTT Patient (test code See_Comment H [Au tomated message] = 3173-2) The system [employer] generated this result transmitted ref erence range: 26 - 36 Seconds. The reference range was not used to int erpret this result as normal/abnormal . Lab Interpretation (test Abnormal code = 26629-8) [facility] GLUCOSE (AUTOMATED)2022-08-28 13:53:49 Test Item Value Reference Range Interpretation Comments POCT GLU (test code = 7544933874) 187 mg/dL 70-110 H Lab Interpretation (test code = Abnormal 87607-8) [facility] GLUCOSE (AUTOMATED)2022-08-28 13:53:49 Test Item Value Reference Range Interpretation Comments POCT GLU (test code = 9187723842) 187 mg/dL 70-110 H Lab Interpretation (test code = Abnormal 17301-5) [facility] GLUCOSE (AUTOMATED)2022-08-28 02:59:23 Test Item Value Reference Range Interpretation Comments POCT GLU (test code = 0263963797) 175 mg/dL 70-110 H Lab Interpretation (test code = Abnormal 13970-9) [facility] GLUCOSE (AUTOMATED)2022-08-28 02:59:23 Test Item Value Reference Range Interpretation Comments POCT GLU (test code = 8125267325) 175 mg/dL 70-110 H Lab Interpretation (test code = Abnormal 79688-6) [facility] GLUCOSE (AUTOMATED)2022-08-27 22:09:50 Test Item Value Reference Range Interpretation Comments POCT GLU (test code = 7850647774) 262 mg/dL 70-110 H Lab Interpretation (test code = Abnormal 61941-3) [facility] GLUCOSE (AUTOMATED)2022-08-27 22:09:50 Test Item Value Reference Range Interpretation Comments POCT GLU (test code = 2258418580) 262 mg/dL 70-110 H Lab Interpretation (test code = Abnormal 37771-3) [id number] 21:06:07 Test Item Value Reference Interpretation Comments Range TROPONIN I (test 0.097 ng/mL See_Comment H [Automated code = 0536392629) message] The system which generated this result [...] biotin. Lab Interpretation Abnormal (test code = 87265-4) [facility] [id number] 21:06:07 Test Item Value Reference Interpretation Comments Range TROPONIN I (test 0.097 ng/mL See_Comment H [Automated code = 0011095544) message] The system which generated this result [...] biotin. Lab Interpretation Abnormal (test code = 62681-3) [facility]2022-08-27 20:52:49 Test Item Value Reference Range Interpretation Comments APTT Patient (test code = See_Comment [ Automated message] 3173-2) The system [employer] generated this result transmitted ref erence range: 26 - 36 Seconds. The re ference range was not u sed to interpret this result as normal/abnor mal. Lab Interpretation (test Normal code = 67710-9) [facility]2022-08-27 20:52:49 Test Item Value Reference Range Interpretation Comments APTT Patient (test code = See_Comment [ Automated message] 3173-2) The system [employer] generated this result transmitted ref erence range: 26 - 36 Seconds. The re ference range was not u sed to interpret this result as normal/abnor mal. Lab Interpretation (test Normal code = 89843-9) [facility]2022-08-27 20:34:30 Test Item Value Reference Range Interpretation Comments Height (test code = in 8873330252) Weight (test code = lbs 0475861824) Systolic BP (test code = mmHg 2222067471) Diastolic BP (test code mmHg = 3424777993) Heart Rate (test code = bpm 6827858425) BSA (test code = 2.13 m2 0080050109) Ao root diam (test code 2.70 cm = 8016436749) Aortic root (test code = 2.7 cm 3453808754) Ao root annulus (test 2.7 cm code = 0519368712) LA size (test code = 3.4 cm 2168880724) LVOT diameter (test code 2.09 cm = 9986083572) LVOT area (test code = 3.40 cm2 1531738196) LVPWD (test code = 1.15 cm 6963986124) PW (test code = 1.15 cm 0.6-1.9 6463638141) LVIDD (test code = 4.50 cm 8976526348) Left Ventricular End 93.4 mL Diastolic Volume by Teichholz Method (test code = 8996686) IVS (test code = 1.13 cm 6947356403) Interventricular Septum 1.13 cm Diastolic Thickness by 2D (test code = 5804012) EF(Teich) (test code = 56.50 % 9353337491) LVIDS (test code = 3.20 cm 1965691849) Left Ventricular End 40.6 mL Systolic Volume by Teichholz Method (test code = 8381737) FS (test code = 29 % 7454363861) EF - 2D (test code = 56.50 % 08503885) E wave decelartion time 0.19 s (test code = 5126092732) MV Peak E Jemma (test code 68.4 cm/s = 8005832252) MV Peak A Jemma (test code 94.6 cm/s = 9917621819) E/A ratio (test code = ratio 2748137989) MV Prop V (test code = 52.20 cm/s 1612633624) LAV(MOD-sp4) (test code 64.70 mL = 0165855510) LVOT stroke volume (test 62.30 cm3 code = 8927790527) LVOT peak jemma (test code 109.4 cm/s = 1543208446) LVOT mn grad (test code mmHg = 3729916977) AV LVOT peak gradient mmHg (test code = 8736921243) LVOT peak VTI (test code 18.2 cm = 3917523364) LV V1 mean (test code = 75.90 cm/s 5062839530) Tapse (test code = 1.83 cm 0633986135) LA Volume Index (BP) 35.1 mL/m2 (test code = 0241299419) LA volume (BP) (test 74.7 mL code = 6865917566) LAV(MOD-sp2) (test code 68.00 mL = 5714854684) A4C EF (test code = 48.80 % 3399964850) EF(sp4-el) (test code = 49.60 % 8114736043) SV(MOD-sp4) (test code = 44.60 mL 0799746411) SV(sp4-el) (test code = 48.00 mL 4823878628) LV Diastolic Volume (BP) 85.2 mL (test code = 8601638168) A2C EF (test code = 55.50 % 7043481979) EF(MOD-bp) (test code = 46.40 % 4811311444) EF(sp2-el) (test code = 54.80 % 2486086942) LV Systolic Volume (BP) 45.7 mL (test code = 3727942029) SV(MOD-bp) (test code = 39.50 mL 0066973039) SV(MOD-sp2) (test code = 40.50 mL 6072576808) EF (test code = 6697341926) Left Ventricular Stroke 39.5 mL Volume by 2-D Biplane-MOD (test code = 1754910) LV Diastolic Volume 40.0 mL/m2 Index (BP) (test code = 3183565715) LV Systolic Volume Index 21.5 mL/m2 (BP) (test code = 3598302949) Radiology Study observation (narrative) (test code = 13892-0) TRINI (test code = TRINI) ?Left?Ventricle: Left [...] mL of Lumason ultrasound enhancing agent used. [facility]2022-08-27 20:34:30 Test Item Value Reference Range Interpretation Comments Height (test code = in 8827770899) Weight (test code = lbs 7849692630) Systolic BP (test code = mmHg 8351813962) Diastolic BP (test code mmHg = 8658098189) Heart Rate (test code = bpm 5493209710) BSA (test code = 2.13 m2 5726505719) Ao root diam (test code 2.70 cm = 8825545103) Aortic root (test code = 2.7 cm 4757173321) Ao root annulus (test 2.7 cm code = 3107095136) LA size (test code = 3.4 cm 8672678640) LVOT diameter (test code 2.09 cm = 6652289858) LVOT area (test code = 3.40 cm2 3061933557) LVPWD (test code = 1.15 cm 7726411186) PW (test code = 1.15 cm 0.6-1.7 0672915911) LVIDD (test code = 4.50 cm 9372495952) Left Ventricular End 93.4 mL Diastolic Volume by Teichholz Method (test code = 4395584) IVS (test code = 1.13 cm 3011636928) Interventricular Septum 1.13 cm Diastolic Thickness by 2D (test code = 9281901) EF(Teich) (test code = 56.50 % 7341536588) LVIDS (test code = 3.20 cm 4620303564) Left Ventricular End 40.6 mL Systolic Volume by Teichholz Method (test code = 3249704) FS (test code = 29 % 3426351450) EF - 2D (test code = 56.50 % 04949497) E wave decelartion time 0.19 s (test code = 6061090028) MV Peak E Jemma (test code 68.4 cm/s = 6477206249) MV Peak A Jemma (test code 94.6 cm/s = 1788097794) E/A ratio (test code = ratio 1167508016) MV Prop V (test code = 52.20 cm/s 5634510084) LAV(MOD-sp4) (test code 64.70 mL = 0872751035) LVOT stroke volume (test 62.30 cm3 code = 3433366550) LVOT peak jemma (test code 109.4 cm/s = 7781144099) LVOT mn grad (test code mmHg = 6471005654) AV LVOT peak gradient mmHg (test code = 3273778570) LVOT peak VTI (test code 18.2 cm = 3862065695) LV V1 mean (test code = 75.90 cm/s 7010747148) Tapse (test code = 1.83 cm 9845879000) LA Volume Index (BP) 35.1 mL/m2 (test code = 1431024035) LA volume (BP) (test 74.7 mL code = 8681368539) LAV(MOD-sp2) (test code 68.00 mL = 0597817597) A4C EF (test code = 48.80 % 9082274668) EF(sp4-el) (test code = 49.60 % 2070363731) SV(MOD-sp4) (test code = 44.60 mL 8152077961) SV(sp4-el) (test code = 48.00 mL 9464272695) LV Diastolic Volume (BP) 85.2 mL (test code = 3701251004) A2C EF (test code = 55.50 % 0895427068) EF(MOD-bp) (test code = 46.40 % 9900225504) EF(sp2-el) (test code = 54.80 % 7868137425) LV Systolic Volume (BP) 45.7 mL (test code = 4544748067) SV(MOD-bp) (test code = 39.50 mL 0947899377) SV(MOD-sp2) (test code = 40.50 mL 0654541289) EF (test code = 1784945435) Left Ventricular Stroke 39.5 mL Volume by 2-D Biplane-MOD (test code = 7763050) LV Diastolic Volume 40.0 mL/m2 Index (BP) (test code = 3894377527) LV Systolic Volume Index 21.5 mL/m2 (BP) (test code = 8022564945) Radiology Study observation (narrative) (test code = 61116-6) TRINI (test code = TRINI) ?Left?Ventricle: Left [...] mL of Lumason ultrasound enhancing agent used. [facility] GLUCOSE (AUTOMATED)2022-08-27 20:16:48 Test Item Value Reference Range Interpretation Comments POCT GLU (test code = 254 mg/dL 70-110 H Notifi ed Provider 9787705305) Lab Interpretation (test Abnormal code = 84986-9) [facility] GLUCOSE (AUTOMATED)2022-08-27 20:16:48 Test Item Value Reference Range Interpretation Comments POCT GLU (test code = 254 mg/dL 70-110 H Notifi ed Provider 0008131729) Lab Interpretation (test Abnormal code = 54306-4) [facility] GLUCOSE (AUTOMATED)2022-08-27 16:11:35 Test Item Value Reference Range Interpretation Comments POCT GLU (test code = 4447490572) 229 mg/dL 70-110 H Lab Interpretation (test code = Abnormal 35679-0) [facility] GLUCOSE (AUTOMATED)2022-08-27 16:11:35 Test Item Value Reference Range Interpretation Comments POCT GLU (test code = 9837859878) 229 mg/dL 70-110 H Lab Interpretation (test code = Abnormal 69327-6) [facility] 04:14:14 Test Item Value Reference Range Interpretation Comments APTT Patient (test See_Comment [Automat ed code = 3173-2) message] The system which generated this result transmitted reference range : 23 - 38 Seconds . The reference range was not used to interpr et this result as normal/abnormal . TRINI (test code = TRINI) The [facility] patient population mean normal value for aPTT is 30 seconds. Lab Interpretation Normal (test code = 94726-1) [facility] Test Item Value Reference Range Interpretation Comments APTT Patient (test See_Comment [Automat ed code = 3173-2) message] The system which generated this result transmitted reference range : 23 - 38 Seconds . The reference range was not used to interpr et this result as normal/abnormal . TRINI (test code = TRINI) The [facility] patient population mean normal value for aPTT is 30 seconds. Lab Interpretation Normal (test code = 62919-2) [facility] / [id number] 04:12:13 Test Item Value Reference Range Interpretation Comments PROTIME PATIENT (test See_Comment [Auto mated message] code = 5964-2) The system [employer] generated this result transmitted ref erence range: 12.0 - 1 4.7 Seconds. The re ference range was not u sed to interpret this result as normal/abnor mal. INR (test code = 6301-6) Nor mal INR <1.1; Warfarin Therap eutic range 2.0 to 3. 0 or 2.5 to 3.5, dep ending upon the indica tions. Lab Interpretation (test Normal code = 96201-9) [facility] / [id number] 04:12:13 Test Item Value Reference Range Interpretation Comments PROTIME PATIENT (test See_Comment [Auto mated message] code = 5964-2) The system [employer] generated this result transmitted ref erence range: 12.0 - 1 4.7 Seconds. The re ference range was not u sed to interpret this result as normal/abnor mal. INR (test code = 6301-6) Nor mal INR <1.1; Warfarin Therap eutic range 2.0 to 3. 0 or 2.5 to 3.5, dep ending upon the indica tions. Lab Interpretation (test Normal code = 88828-9) [facility]
[2023-04-08 18:26] LABS: Absolute Lymphocytes (CBC) 1.5 K/uL (0.7-4.9); Hematocrit 45.6 % (39.6-49.0); Lymphocytes % 11.9 % (15.3-44.8); MCV 85.9 fL (80-100); MPV 8.3 fL (7.6-11.3); RBC Red Blood Cell Count 5.31 M/uL (4.33-5.43)
[2023-04-08] MEDS ORDERED: NA CHLORIDE 0.9% 1,000 ML ONE (18:44)
[2023-04-08 18:48] LABS: Albumin 3.6 g/dL (3.4-5.0); Bilirubin Total 0.3 mg/dL (0.2-1.0); Magnesium 2.2 mg/dL (1.6-2.4); Potassium 4.2 mEq/L (3.5-5.1); Protein, Total 7.5 g/dL (6.4-8.2); Troponin High Sensitivity 9.3 pg/mL (<58.9)
--- NOTE | 2023-04-08 18:53 | RAD REPORT ---
EXAM DESCRIPTION: RAD - Chest Single View - 04/08/2023 6:45 pm CLINICAL HISTORY: weakness COMPARISON: Chest Single View dated 01/28/2023; Chest Single View dated 01/01/2023; Chest Single View da guremet 06/01/2022 FINDINGS: Lines: None. Lungs: No evidence of edema or pneumonia. Pleural: No significant pleural effusions or pneumothorax. Cardiac: The heart size is within normal limits. Mediastinum: Within normal limits. Bones: No acute fractures. Other: None IMPRESSION: No acute cardiopulmonary disease.
--- NOTE | 2023-04-08 20:46 | EDPHYS ---
Physician Documentation [facility] Name: Cristobal Eduardo Age: 57 yrs Sex: Male : 1965 Arrival Date: 04/08/2023 Time: 17:33 Bed 19 Private MD: ED Physician Eyad Tuttle HPI: 04/08 18:13 This 57 yrs old Male presents to ER via EMS with complaints of SOCIAL WORK. rt 18:13 Patient has had multiple CVAs in the past, most recent one was about 1 week ago where rt he was transferred to [facility]. Patient was ambulatory when he left, states that he is too weak to walk at this time, states this is due to not having PT currently with him. The patient is called EMS multiple times, roughly 10 times within the past week including 5 in the past 24 hours. Adult Protective Services was involved. The patient is reportedly not taking care of himself, not bathing. Patient reportedly just simply urinates on the ground. He is only had crackers and water to eat is unable to cook or care for himself. The daughter was concerned for his safety at home so brought him to the ED for further evaluation. Symptoms are moderate severity, no other aggravating alleviating factors. Patient states that he has no new neurologic symptoms at this time.. Historical: - Allergies: 17:38 No Known Allergies; bp - PMHx: 17:38 CVA w/ R sided deficits; diabetes mellitus; Hypertensive disorder; kidney disease; bp - Immunization history:: Adult Immunizations up to date. - Social history:: Smoking status: Patient denies any tobacco usage or history of. - Family history:: not pertinent. ROS: 18:13 Constitutional: Negative for fever, chills, and weight loss, Cardiovascular: Negative rt for chest pain, palpitations, and edema, Respiratory: Negative for shortness of breath, cough, wheezing, and pleuritic chest pain, Abdomen/GI: Negative for abdominal pain, nausea, vomiting, diarrhea, and constipation, MS/Extremity: Negative for injury and deformity, Skin: Negative for injury, rash, and discoloration, Psych: Negative for depression, anxiety, suicide ideation, homicidal ideation, and hallucinations. 18:13 Neuro: Positive for weakness, Negative for altered mental status. Exam: 18:13 Constitutional: This is a well developed, well nourished patient who is awake, alert, rt and in no acute distress. Head/Face: Normocephalic, atraumatic. Chest/axilla: Normal chest wall appearance and motion. Nontender with no deformity. No lesions are appreciated. Cardiovascular: Regular rate and rhythm with a normal S1 and S2. No gallops, murmurs, or rubs. Normal PMI, no JVD. No pulse deficits. Respiratory: Lungs have equal breath sounds bilaterally, clear to auscultation and percussion. No rales, rhonchi or wheezes noted. No increased work of breathing, no retractions or nasal flaring. Abdomen/GI: Soft, non-tender, with normal bowel sounds. No distension or tympany. No guarding or rebound. No evidence of tenderness throughout. 18:13 Skin: Excoriations noted on the skin, no cellulitic change. 19:10 ECG was reviewed by the Attending Physician. rt Vital Signs: 17:36 BP 124 / 43; Pulse 109; Resp 16; Temp 98.2; Pulse Ox 98% ; bp 18:52 BP 132 / 89; Pulse 96; Resp 16; Pulse Ox 100% ; bp MDM: 17:42 Patient medically screened. rt 20:46 Differential Diagnosis Electrolyte disturbance, dysrhythmia, anemia, sepsis, failure to rt the. Data reviewed: vital signs, nurses notes, lab test result(s), EKG. Consideration of Admission/Observation Patient was admitted/placed on observation. Management of patient was discussed with the following: Hospitalist: Agrees to admit. Test considered but Not performed: CT: No new neurodeficits, CT scan of the head is not indicated, denies any head trauma. External Records Reviewed: Inpatient record: . Counseling: I had a detailed discussion with the patient and/or guardian regarding: the historical points, exam findings, and any diagnostic results supporting the discharge/admit diagnosis, lab results, radiology results, the need for further work-up and treatment in the hospital. 04/08 17:51 Order name: CBC with Diff; Complete Time: 18:58 rt 04/08 17:51 Order name: CMP; Complete Time: 18:58 rt 04/08 17:51 Order name: Magnesium; Complete Time: 18:58 rt 04/08 17:51 Order name: Troponin High Sensitivity; Complete Time: 18:58 rt 04/08 17:51 Order name: CPK; Complete Time: 18:58 rt 04/08 21:03 Order name: Basic Metabolic Panel EDMS 04/08 21:03 Order name: Basic Metabolic Panel EDMS 04/08 21:03 Order name: Basic Metabolic Panel EDMS 04/08 21:03 Order name: Basic Metabolic Panel EDMS 04/08 21:03 Order name: Magnesium EDMS 04/08 21:03 Order name: Magnesium EDMS 04/08 21:03 Order name: Magnesium EDMS 04/08 21:03 Order name: Magnesium EDMS 04/08 21:03 Order name: Phosphorus EDMS 04/08 21:03 Order name: Phosphorus EDMS 04/08 21:03 Order name: Phosphorus EDMS 04/08 21:03 Order name: Phosphorus EDMS 04/08 21:03 Order name: Urinalysis w/ reflexes EDMS 04/08 21:03 Order name: CBC with Automated Diff EDMS 04/08 21:03 Order name: CBC with Automated Diff EDMS 04/08 21:03 Order name: CBC with Automated Diff EDMS 04/08 21:03 Order name: CBC with Automated Diff EDMS 04/08 17:51 Order name: Chest Single View XRAY; Complete Time: 18:58 rt 04/08 17:51 Order name: EKG; Complete Time: 17:52 rt 04/08 21:03 Order name: CONS Physician Consult EDFL 04/08 21:03 Order name: Physical Therapy Consult EDFL 04/08 21:03 Order name: Heart Healthy EDFL 04/08 17:51 Order name: EKG - Nurse/Tech; Complete Time: 18:45 rt EC:10 Rate is 98 beats/min. Rhythm is regular, Normal Sinus Rhythm with No ectopy. QRS [place] rt is Normal. [place] interval is normal. QRS interval is normal. QT interval is normal. No Q waves. Administered Medications: 18:45 Drug: NS 0.9% IV 1000 ml Route: IV; Rate: 1 bolus; Site: right antecubital; bp 21:10 Follow up: IV Status: Completed infusion; IV Intake: 1000ml rv Disposition Summary: 04/08/23 20:45 Hospitalization Ordered Hospitalization Status: Observation rt Provider: Berny Desai rt Location: Telemetry/MedSurg (observation) rt Condition: Stable rt Problem: an ongoing problem rt Symptoms: are unchanged rt Bed/Room Type: Standard rt Room Assignment: 209(04/08/23 20:58) Diagnosis - Adult failure to thrive rt Forms: - Medication Reconciliation Form rt - SBAR form rt Signatures: Dispatcher [employer] EDBatsheva Lenz RN RN mw Jeff Bautista RN RN bp Eyad Tuttle MD MD rt Henry Caraballo RN rv Corrections: (The following items were deleted from the chart) 20:58 20:45 rt 21:03 17:52 Urinalysis W/Microscopic+U.LAB.BRZ ordered. EDMS EDMS
--- NOTE | 2023-04-08 20:46 | ER ---
Nurse's Notes [facility] Name: Cristobal Eduardo Age: 57 yrs Sex: Male : 1965 Arrival Date: 04/08/2023 Time: 17:33 Bed 19 Private MD: Diagnosis: Adult failure to thrive Presentation: 04/08 17:36 Chief complaint: EMS states: DAUGHTER SAYS HE NEEDS TO BE IN A [facility] BECAUSE HE bp CAN'T CARE FOR HIMSELF. Coronavirus screen: At this time, the client does not indicate any symptoms associated with coronavirus-19. Ebola Screen: No symptoms or risks identified at this time. Initial Sepsis Screen: Does the patient meet any 2 criteria? HR > 90 bpm. No. Patient's initial sepsis screen is negative. Does the patient have a suspected source of infection? No. Patient's initial sepsis screen is negative. Risk Assessment: Do you want to hurt yourself or someone else? Patient reports no desire to harm self or others. Onset of symptoms is unknown. Care prior to arrival: Glucose check: 184. 17:36 Method Of Arrival: EMS: [facility] bp 17:36 Acuity: SOCORRO 3 bp Triage Assessment: 17:38 General: Appears unkempt, Behavior is calm, cooperative. Pain: Denies pain. EENT: No bp deficits noted. Neuro: NO CHANGE FROM BASELINE POST CVA. Cardiovascular: Rhythm is sinus tachycardia. Respiratory: No deficits noted. GI: No signs and/or symptoms were reported involving the gastrointestinal system. : No signs and/or symptoms were reported regarding the genitourinary system. Derm: No deficits noted. Musculoskeletal: No deficits noted. Historical: - Allergies: 17:38 No Known Allergies; bp - PMHx: 17:38 CVA w/ R sided deficits; diabetes mellitus; Hypertensive disorder; kidney disease; bp - Immunization history:: Adult Immunizations up to date. - Social history:: Smoking status: Patient denies any tobacco usage or history of. - Family history:: not pertinent. Screenin:[facility] ED Fall Risk Assessment (Adult) History of falling in the last 3 months, bp including since admission Yes- fall prone (multiple falls) (3 pts). Abuse screen: Denies threats or abuse. Denies injuries from another. Nutritional screening: No deficits noted. Tuberculosis screening: No symptoms or risk factors identified. Assessment: 17:45 General: SEE TRIAGE NOTE. bp 18:49 Reassessment: No changes from previously documented assessment. Patient is alert, bp oriented x 3, equal unlabored respirations, skin warm/dry/pink. Vital Signs: 17:36 BP 124 / 43; Pulse 109; Resp 16; Temp 98.2; Pulse Ox 98% ; bp 18:52 BP 132 / 89; Pulse 96; Resp 16; Pulse Ox 100% ; bp ED Course: 17:36 Patient arrived in ED. bp 17:36 Eyad Tuttle MD is Attending Physician. rt 17:38 Triage completed. bp 17:38 Arm band placed on. bp 17:59 Jeff Bautista, RN is Primary Nurse. bp 18:47 Chest Single View XRAY In Process Unspecified. EDMS 18:49 Patient has correct armband on for positive identification. Bed in low position. Call bp light in reach. Side rails up X2. 18:50 Inserted saline lock: 22 gauge in right forearm, using aseptic technique. Blood bp collected. 20:45 Berny Desai MD is Hospitalizing Provider. rt 21:11 No provider procedures requiring assistance completed. Patient admitted, IV remains in rv place. 21:22 Provided Education on: NURSING CARE/ HOME CARE. rv Administered Medications: 18:45 Drug: NS 0.9% IV 1000 ml Route: IV; Rate: 1 bolus; Site: right antecubital; bp 21:10 Follow up: IV Status: Completed infusion; IV Intake: 1000ml rv Medication: 21:22 VIS not applicable for this client. rv Intake: 21:10 IV: 1000ml; Total: 1000ml. rv Outcome: 20:45 Decision to Hospitalize by Provider. rt 21:21 Admitted to Med/surg accompanied by tech, via stretcher, room 203, with chart, Report rv called to LUIZ ZAPATA 21:21 Condition: good 21:21 Instructed on the need for admit. 21:23 Patient left the ED. rv Signatures: Dispatcher [employer] EDJeff Lincoln, RN RN bp Henry Caraballo RN RN rv Eyad Tuttle MD MD rt
--- NOTE | 2023-04-08 20:54 | P.HP ---
Certification for Inpatient Patient admitted to: Inpatient With expected LOS: <2 Midnights Patient will require the following post-hospital care: Rehabilitation Practitioner: I am a practitioner with admitting privileges, knowledge of patient current condition, hospital course, and medical plan of care. Services: Services provided to patient in accordance with Admission requirements found in Title 42 Section 412.3 of the Code of Federal Regulations Patient History Date of Service: 04/08/23 Reason for admission: CVA History of Present Illness: 57-year-old male with a past medical history significant for CVA with generalized, DM 2, CKD, hypertension who presents with complaint of worsening weakness, daughter reports history frequent falls. Daughter is a bedside reports he is unable to care for himself at home. Patient reported that he has having difficulty with some ADLs. Patient denies any other signs and symptoms. Symptoms are aggravated or relieved by nothing. Patient was brought to the hospital for medical evaluation. Of note, patient has been calling EMS anytime he had a fall in the past. Referal to Dr Ward, for Neuro, possible need for Rehab, Laboratory evaluation WBCs CBC elevated at 12.5, left shift at 81.5, H&H normal, acute on chronic kidney injury BUN 35, creatinine 1.85, estimated GFR 42, unknown baseline blood sugar 167, CK4 4 7, troponin normal at 9.3, elevated triglycerides at 279 from previous admission Allergies No Known Allergies Allergy (Verified 03/30/23 23:36) Home Medications: Metoprolol Tartrate [Lopressor*] 25 mg PO BID #60 tab 06/03/22 Bupropion *Xl* [Wellbutrin XL*] 1 tab PO DAILY 01/01/23 Sertraline HCl 50 mg PO DAILY 01/01/23 Trazodone [Desyrel*] 50 mg PO BEDTIME 01/01/23 Aspirin Chewable [Aspirin Chewable*] 81 mg PO DAILY #1 tab.chew 01/06/23 Atorvastatin Calcium 40 mg PO BEDTIME #30 tab 01/06/23 Clopidogrel Bisulfate [Plavix*] 75 mg PO DAILY #30 tab 01/06/23 Amlodipine [Norvasc*] 1 tab PO DAILY 04/08/23 Buspirone HCl [Buspar] 1 tab PO PRN PRN 04/08/23 Nitroglycerin 1 tab PO PRN PRN 04/08/23 Tamsulosin [Flomax*] 1 cap PO DAILY 04/08/23 glipiZIDE [Glipizide] 1 tab PO DAILY 04/08/23 - Past Medical/Surgical History Diabetic: Yes -: Hypertension -: CKD3b -: Obesity -: CVA Psychosocial/ Personal History: Patient is . - Social History Alcohol use: No CD- Drugs: No Caffeine use: No Review of Systems 10-point ROS is otherwise unremarkable Physical Examination - Physical Exam General: Alert, In no apparent distress, Oriented x3 HEENT: Atraumatic, Normocephalic, PERRLA Neck: Supple, 2+ carotid pulse no bruit, JVD not distended Respiratory: Clear to auscultation bilaterally, Normal air movement Cardiovascular: No edema, Normal pulses, Regular rate/rhythm Capillary refill: <2 Seconds Gastrointestinal: Normal bowel sounds, Soft and benign Musculoskeletal: No clubbing, No swelling - Studies Laboratory Data (last 24 hrs) 04/08/23 18:13: Sodium 137, Potassium 4.2, BUN 35 H, Creatinine 1.85 H, Glucose 167 H, Magnesium 2.2, Total Bilirubin 0.3, AST 32, ALT 60, Alkaline Phosphatase 104 04/08/23 18:13: WBC 12.50 H, Hgb 14.8, Hct 45.6, Plt Count 251 Assessment and Plan - Plan Assessment and plan CVA in December 2022 WBC within normal limit, early left shift frequent falls. CT head does not indicate any acute intracranial abnormality. Continue aspirin, folic acid and statin. PT eval and treat. Continue supp ortive care. History of CVA with right-sided deficit. Continue current treatment regimen listed above. DM2 with hyperglycemia. BS monitoring with sliding scale insulin. Hypertension. Will allow for permissive hypertension pending resolution of MRI to rule out CVA. Labetalol as needed for SBP greater than 180 mmHg. Hyperlipidemia. Continue statin. CKD 3B. Renal function is stable compared to levels 3 months ago. We will continue to monitor renal functions. DVT prophylaxis with Lovenox subQ. CVA in December 2022-no new residual deficits on exam Neuro consult evaluate for CVA Patient may benefit from rehab due to inability for self-care Continue aspirin, folic acid and statin. PT eval and treat. Continue supportive care. WBC within normal limit, early left shift Rocephin. Empiric frequent falls. Fall precautions, PT eval and treat. History of CVA with right-sided deficit. Continue current treatment regimen listed above. DM2 with hyperglycemia. BS monitoring with sliding scale insulin. Hypertension. Will allow for permissive hypertension pending resolution of MRI to rule out CVA. Labetalol as needed for SBP greater than 180 mmHg. Hyperlipidemia. Continue statin. CKD 3B. Renal function is stable compared to levels 3 months ago. monitor renal functions. Renal dose medications DVT prophylaxis with Lovenox subQ. Diet cardiac Full code Discharge Plan: Other (Rehabilitation versus skilled care) Plan to discharge in: 48 Hours - Advance Directives Does patient have a Living Will: No Does patient have a Durable POA for Healthcare: No - Code Status/Comfort Care Code Status: Full Code Physician Review: Patient Assessed, Agree with Above Assessment and Plan Critical Care: No Time Spent Managing Pts Care (In Minutes): 55
[2023-04-08] MEDS ORDERED: MAGNESIUM HYDROXIDE 8% 30 ML PO PRN (21:02)
[2023-04-08] MEDS ORDERED: ONDANSETRON 4 MG/2 ML VIAL IV PRN (21:02)
[2023-04-08 21:37] VITALS: BMI 34.9
[2023-04-08] MEDS: ALPRAZOLAM 0.25 MG TABLET PO PRN (21:57)
[2023-04-09 07:47] LABS: Absolute Lymphocytes (CBC) 1.6 K/uL (0.7-4.9); Hematocrit 41.9 % (39.6-49.0); Lymphocytes % 16.3 % (15.3-44.8); MPV 8.5 fL (7.6-11.3); RBC Red Blood Cell Count 4.87 M/uL (4.33-5.43)
[2023-04-09 08:03] LABS: Magnesium 2.1 mg/dL (1.6-2.4); Phosphorus 2.9 mg/dL (2.5-4.9); Potassium 4.1 mEq/L (3.5-5.1)
[2023-04-09] MEDS ORDERED: CEFTRIAXONE 1,000 MG in NA CHLORIDE 0.9% 50 ML IVPB SCH (09:00)
--- NOTE | 2023-04-09 10:19 | P.PN ---
Subjective Date of Service: 04/09/23 Chief Complaint: Weakness unable to walk Patient is 57 years of age was recently discharged from [facility] in [place] with a stroke diseases his fifth stroke he came to the hospital unable to walk he is profoundly weak able to walk prior to the stroke [place] any other complaint Review of Systems General: Weakness Musculoskeletal: As per HPI Physical Examination - Vital Signs Temperature: 97.0 F Blood Pressure: 154/85 Pulse: 85 Respirations: 14 Pulse Ox (%): 98 - Physical Exam General: Alert, In no apparent distress, Oriented x3 HEENT: Atraumatic Neck: Supple Respiratory: Clear to auscultation bilaterally Cardiovascular: No edema, Normal pulses Gastrointestinal: Normal bowel sounds, Soft and benign Neurological: Other (Patient has slight weakness of his extremities is able to move both his arms and legs no obvious cranial nerve deficit speech is fluent denies any problems swallowing because therapy states that he is profoundly weak) - Studies Laboratory Data (last 24 hrs) 04/08/23 18:13: Sodium 137, Potassium 4.2, BUN 35 H, Creatinine 1.85 H, Glucose 167 H, Magnesium 2.2, Total Bilirubin 0.3, AST 32, ALT 60, Alkaline Phosphatase 104 04/08/23 18:13: WBC 12.50 H, Hgb 14.8, Hct 45.6, Plt Count 251 Assessment And Plan - Current Problems (Diagnosis) (1) Weakness of lower extremity Current Visit: Yes Status: Acute Plan: Patient is 57 years of age was recently discharged from [facility] with acute right sided parietal and frontal infarcts this is the fifth time he has had a stroke he is unable to walk he was discharged from [facility] [place] back here in the hospital and the physical therapy has been very weak with cranial nerve deficit he is able to lift his arms and legs but responsive oriented cooperative patient is renal function is abnormal plan to admit physical therapy evaluate for SNF and IV fluids to correct his renal function patient has a history of chronic renal failure his chest x-ray is clear Qualifiers: Laterality: unspecified laterality Qualified Code(s): R29.898 - Other symptoms and signs involving the musculoskeletal system Physician Review: Patient Assessed, Agree with Above Assessment and Plan
[2023-04-09] MEDS ORDERED: BUSPIRONE HCL 5 MG TABLET PO PRN (10:23)
[2023-04-09] MEDS: METOPROLOL TAR 25 MG TAB PO SCH (19:54)
[2023-04-09] MEDS: ALPRAZOLAM 0.25 MG TABLET PO PRN (19:54)
[2023-04-09] MEDS: TRAZODONE 50 MG TABLET PO SCH (19:56)
[2023-04-09] MEDS: ATORVASTATIN 40 MG TAB PO SCH (19:56)
[2023-04-10 07:25] LABS: Absolute Lymphocytes (CBC) 1.8 K/uL (0.7-4.9); Hematocrit 44.1 % (39.6-49.0); Lymphocytes % 18.3 % (15.3-44.8); MCV 86.2 fL (80-100); MPV 8.1 fL (7.6-11.3); RBC Red Blood Cell Count 5.12 M/uL (4.33-5.43)
[2023-04-10 07:39] LABS: Phosphorus 3.2 mg/dL (2.5-4.9); Potassium 4.4 mEq/L (3.5-5.1)
[2023-04-10] MEDS: ASPIRIN 81 MG CHEWABLE TABLET PO SCH (09:04)
[2023-04-10] MEDS: BUPROPION HCL XL 150 MG TAB PO SCH (09:04)
[2023-04-10] MEDS: METOPROLOL TAR 25 MG TAB PO SCH ×2 (09:05→20:42)
[2023-04-10] MEDS: SERTRALINE HCL 50 MG TAB PO SCH (09:06)
[2023-04-10] MEDS: AMLODIPINE 10 MG TAB PO SCH (09:07)
[2023-04-10] MEDS: TAMSULOSIN 0.4 MG SR CAP PO SCH (09:07)
[2023-04-10] MEDS: glipiZIDE 5 MG TAB PO SCH (09:07)
[2023-04-10] MEDS: CLOPIDOGREL 75 MG TABLET PO SCH (09:07)
[2023-04-10] MEDS: ACETAMINOPHEN 500 MG TAB PO PRN ×2 (11:03→20:43)
[2023-04-10] MEDS: TRAZODONE 50 MG TABLET PO SCH (20:42)
[2023-04-10] MEDS: ATORVASTATIN 40 MG TAB PO SCH (20:42)
[2023-04-10] MEDS: ALPRAZOLAM 0.25 MG TABLET PO PRN (20:43)
[2023-04-11 07:45] LABS: Potassium 3.9 mEq/L (3.5-5.1)
[2023-04-11 07:46] LABS: Absolute Lymphocytes (CBC) 2.4 K/uL (0.7-4.9); Lymphocytes % 18.9 % (15.3-44.8); MCV 85.2 fL (80-100); MPV 8.4 fL (7.6-11.3); RBC Red Blood Cell Count 5.17 M/uL (4.33-5.43)
[2023-04-11 07:47] LABS: Magnesium 1.9 mg/dL (1.6-2.4); Phosphorus 3.2 mg/dL (2.5-4.9)
[2023-04-11] MEDS: TAMSULOSIN 0.4 MG SR CAP PO SCH (09:00)
[2023-04-11] MEDS: ASPIRIN 81 MG CHEWABLE TABLET PO SCH (09:00)
[2023-04-11] MEDS: SERTRALINE HCL 50 MG TAB PO SCH (09:00)
[2023-04-11] MEDS: METOPROLOL TAR 25 MG TAB PO SCH ×2 (09:00→22:01)
[2023-04-11] MEDS: glipiZIDE 5 MG TAB PO SCH (09:00)
[2023-04-11] MEDS: BUPROPION HCL XL 150 MG TAB PO SCH (09:00)
[2023-04-11] MEDS: AMLODIPINE 10 MG TAB PO SCH (09:00)
[2023-04-11] MEDS: CLOPIDOGREL 75 MG TABLET PO SCH (09:00)
--- NOTE | 2023-04-11 11:50 | EKG ---
Test Date: 2023-04-08 Test Time: 18:41:06 Arranger Assembler: BP MEASUREMENT RESULTS: Intervals: Rate: 98 AK: 108 QRSD: 78 QT: 348 QTc: 444 [place]: P: 21 AK: 108 QRS: 39 T: 133 INTERPRETIVE STATEMENTS: Sinus rhythm with short AK T wave abnormality, consider lateral ischemia Abnormal ECG Compared to ECG 01/28/2023 01:23:28 No significant changes Electronically Signed On 04-11-23 11:46:12 CDT by Chucky Ellington
--- NOTE | 2023-04-11 16:15 | P.PN ---
Subjective Date of Service: 04/11/23 Chief Complaint: Weakness unable to walk No acute events overnight. He reports chronic right-sided deficits. He states that he is unable to care for himself at home. Appreciate PT/OT recs. He denies any chest pain, palpitations, or shortness of breath. Review of Systems 10-point ROS is otherwise unremarkable General: Weakness (right-sided) Physical Examination - Vital Signs Temperature: 97.7 F Blood Pressure: 135/96 Pulse: 90 Respirations: 18 Pulse Ox (%): 99 Assessment And Plan - Plan - Physical Exam General: Alert, In no apparent distress, Oriented x3 HEENT: Atraumatic, EOMI, Sclerae nonicteric Neck: JVD not distended Respiratory: Clear to auscultation bilaterally, Normal air movement Cardiovascular: No edema, Regular rate/rhythm, No murmurs Gastrointestinal: Normal bowel sounds, Soft, Non-distended, No tenderness Musculoskeletal: No clubbing Integumentary: No rashes Neurological: Normal speech, Normal tone, Sensation intact, Cranial nerves 3-12 intact, Normal affect, Abnormal strength (4/5 strength in RUE/RLE. 5/5 strength in LUE/LLE) NIH Stroke Scale 1a. Level of consciousness: 0 - Alert; keenly responsive 1b. LOC questions: 0 - Both questions right 1c. LOC commands: 0 - Performs both tasks 2. Best Gaze: 0 - Normal 3. Visual: 0 - No visual loss 4. Facial Palsy: 0 - Normal symmetry 5a. Motor left arm: 0 - No drift for 10 seconds 5b. Motor right arm: 0 - No drift for 10 seconds 6a. Motor left le - No drift for 5 seconds 6b. Motor right le - Drift, but doesn't hit bed 7. Limb ataxia: 0 - No ataxia 8. Sensory: 0 - Normal; no sensory loss 9. Best Language: 0 - Normal; no aphasia 10. Dysarthria: 0 - Normal 11. Extinction and Inattention: 0 - No abnormality 12. Distal motor function: 0 - No abnormality Total Score: 1 # History of Right Frontal Lobe Cerebrovascular Accident (December 2022) # History of Left Frontal Lobe Cerebrovascular Accident # Moderate-Severe Bilateral Carotid Artery Stenosis # SIRS Criteria (Leukocytosis, Tachycardia) without evidence of infection - Evaluation thus far: - Chest x-ray = " No acute cardiopulmonary disease." - CT head = pending - Per Mr. Eduardo, no new or worsening neurologic deficits - Management plan: - Consulted Neurology and spoke with Dr. Ward - recommendations appreciated - Continue aspirin, atorvastatin, folic acid, clopidogrel - Consult PT/OT - q4hour neuro checks # Chronic Kidney Disease Stage III - Creatinine stable - Monitor creatinine and urine output - If worsening, obtain renal ultrasound - Renally dose medications # Type II Diabetes Mellitus - Continue home insulin + glimepiride # Hypertension - Continue home amlodipine, metoprolol Roger Franklin M.D.
[2023-04-11] MEDS: ACETAMINOPHEN 500 MG TAB PO PRN (17:19)
--- NOTE | 2023-04-11 19:33 | RAD REPORT ---
EXAM DESCRIPTION: CT - Head Brain Wo Cont - 04/11/2023 7:08 pm CLINICAL HISTORY: CVA COMPARISON: March 30, 2023 MRI TECHNIQUE: Computed axial tomography of the head was obtained. IV contrast was not requested. All CT scans are performed using dose optimization technique as appropriate and may include automated exposure control or mA/KV adjustment according to patient size. FINDINGS: An intracranial bleed is not seen The ventricles are normal in caliber No extra-axial fluid collection is noted. Subacute right frontal and right parietal lobe infarctions without significant change in size from pr ior MRI Old left cerebral infarction Fluid within the sinuses/ mastoids is not seen. IMPRESSION: No acute intracranial abnormality is seen If patient's symptoms persist MRI of the brain would be recommended
[2023-04-11] MEDS: ALPRAZOLAM 0.25 MG TABLET PO PRN (20:28)
[2023-04-11] MEDS: ATORVASTATIN 40 MG TAB PO SCH (20:28)
[2023-04-11] MEDS: TRAZODONE 50 MG TABLET PO SCH (20:28)
[2023-04-12] MEDS: CALCIUM CARBONATE CHEW 500MG TAB PO PRN (05:52)
[2023-04-12 07:21] LABS: Absolute Lymphocytes (CBC) 1.8 K/uL (0.7-4.9); Hematocrit 46.8 % (39.6-49.0); MCV 85.1 fL (80-100); MPV 7.9 fL (7.6-11.3)
[2023-04-12] MEDS: TAMSULOSIN 0.4 MG SR CAP PO SCH (08:43)
[2023-04-12] MEDS: ASPIRIN 81 MG CHEWABLE TABLET PO SCH (08:43)
[2023-04-12] MEDS: SERTRALINE HCL 50 MG TAB PO SCH (08:43)
[2023-04-12] MEDS: glipiZIDE 5 MG TAB PO SCH (08:43)
[2023-04-12] MEDS: METOPROLOL TAR 25 MG TAB PO SCH ×2 (08:43→20:56)
[2023-04-12] MEDS: AMLODIPINE 10 MG TAB PO SCH (08:43)
[2023-04-12] MEDS: CLOPIDOGREL 75 MG TABLET PO SCH (08:43)
[2023-04-12] MEDS ORDERED: POTASSIUM CL SA 10 MEQ TAB PO ONE (09:00)
[2023-04-12] MEDS: BUPROPION HCL XL 150 MG TAB PO SCH (09:03)
--- NOTE | 2023-04-12 19:41 | P.PN ---
Subjective Date of Service: 04/12/23 Chief Complaint: Weakness unable to walk No new changes. His WBC is up-trending, but there is no obvious source of infection. Appreciate PT/OT recs regarding placement. He denies any chest pain, palpitations, or shortness of breath. Review of Systems 10-point ROS is otherwise unremarkable General: Weakness (generalized) Physical Examination - Vital Signs Temperature: 98.9 F Blood Pressure: 129/73 Pulse: 94 Respirations: 18 Pulse Ox (%): 98 Assessment And Plan - Plan - Physical Exam General: Alert, In no apparent distress, Oriented x3 HEENT: Atraumatic, EOMI, Sclerae nonicteric Respiratory: Clear to auscultation bilaterally, Normal air movement Cardiovascular: No edema, Regular rate/rhythm, No murmurs Gastrointestinal: Normal bowel sounds, Soft, Non-distended, No tenderness Musculoskeletal: No clubbing Integumentary: No rashes Neurological: Normal speech, Normal tone, Sensation intact, Cranial nerves 3-12 intact, Normal affect, Abnormal strength (4/5 strength in RUE/RLE. 5/5 strength in LUE/LLE) NIH Stroke Scale 1a. Level of consciousness: 0 - Alert; keenly responsive 1b. LOC questions: 0 - Both questions right 1c. LOC commands: 0 - Performs both tasks 2. Best Gaze: 0 - Normal 3. Visual: 0 - No visual loss 4. Facial Palsy: 0 - Normal symmetry 5a. Motor left arm: 0 - No drift for 10 seconds 5b. Motor right arm: 0 - No drift for 10 seconds 6a. Motor left le - No drift for 5 seconds 6b. Motor right le - Drift, but doesn't hit bed 7. Limb ataxia: 0 - No ataxia 8. Sensory: 0 - Normal; no sensory loss 9. Best Language: 0 - Normal; no aphasia 10. Dysarthria: 0 - Normal 11. Extinction and Inattention: 0 - No abnormality 12. Distal motor function: 0 - No abnormality Total Score: 1 # History of Right Frontal Lobe Cerebrovascular Accident (December 2022) # History of Left Frontal Lobe Cerebrovascular Accident # Moderate-Severe Bilateral Carotid Artery Stenosis # SIRS Criteria (Leukocytosis, Tachycardia) without evidence of infection - Evaluation thus far: - Chest x-ray = "no acute cardiopulmonary disease." - CT head = "no acute intracranial abnormality is seen" - Ordered urinalysis - Per Mr. Eduardo, no new or worsening neurologic deficits - Management plan: - Consulted Neurology and spoke with Dr. Ward - recommendations appreciated - Continue aspirin, atorvastatin, folic acid, clopidogrel - Consult PT/OT - appreciate CM assistance with possible placement - q4hour neuro checks # Chronic Kidney Disease Stage III - Creatinine stable - Monitor creatinine and urine output - If worsening, obtain renal ultrasound - Renally dose medications # Type II Diabetes Mellitus - Continue home insulin + glimepiride # Hypertension - Continue home amlodipine, metoprolol Roger Franklin M.D.
[2023-04-12] MEDS: ATORVASTATIN 40 MG TAB PO SCH (20:56)
[2023-04-12] MEDS: ALPRAZOLAM 0.25 MG TABLET PO PRN (20:56)
[2023-04-12] MEDS: TRAZODONE 50 MG TABLET PO SCH (20:57)
[2023-04-13] MEDS: CALCIUM CARBONATE CHEW 500MG TAB PO PRN (02:45)
[2023-04-13 05:37] LABS: Hematocrit 48.5 % (39.6-49.0); Lymphocytes % 12.4 % (15.3-44.8); MCV 85.5 fL (80-100); MPV 8.2 fL (7.6-11.3); RBC Red Blood Cell Count 5.68 M/uL (4.33-5.43)
[2023-04-13 05:53] LABS: Potassium 4.4 mEq/L (3.5-5.1)
[2023-04-13 08:33] LABS: Blood Morphology Comment NOT SEEN (NOT SEEN); Platelet Estimate ADEQ; White Blood Cell Scan OK (OK)
--- NOTE | 2023-04-13 09:10 | RAD REPORT ---
EXAM DESCRIPTION: RAD - Chest Single View - 04/13/2023 9:00 am CLINICAL HISTORY: leukocytosis Chest pain. COMPARISON: Chest Single View dated 04/08/2023; Chest Single View dated 01/28/2023; Chest Single View d ated 01/01/2023; Chest Single View dated 06/01/2022 FINDINGS: Portable technique limits examination quality. The lungs are grossly clear. The heart is normal in size. No displaced fractures. IMPRESSION: No acute intrathoracic process suspected.
[2023-04-13] MEDS: METOPROLOL TAR 25 MG TAB PO SCH ×2 (09:45→20:53)
[2023-04-13] MEDS: ASPIRIN 81 MG CHEWABLE TABLET PO SCH (09:45)
[2023-04-13] MEDS: TAMSULOSIN 0.4 MG SR CAP PO SCH (09:45)
[2023-04-13] MEDS: CLOPIDOGREL 75 MG TABLET PO SCH (09:45)
[2023-04-13] MEDS: SERTRALINE HCL 50 MG TAB PO SCH (09:46)
[2023-04-13] MEDS: AMLODIPINE 10 MG TAB PO SCH (09:46)
[2023-04-13] MEDS: glipiZIDE 5 MG TAB PO SCH (09:46)
[2023-04-13] MEDS: BUPROPION HCL XL 150 MG TAB PO SCH (09:46)
[2023-04-13 12:36] LABS: Calcium Oxalate Crystals- Ur Few /HPF (None Seen); Specific Gravity 1.018 (1.005-1.030); Urine Bacteria None Seen /HPF (<20); Urine Bilirubin NEGATIVE (Negative); Urine Blood 2+ (Negative); Urine Clarity Turbid (Clear); Urine Color Light-Yellow (Yellow); Urine Glucose NEGATIVE (Negative); Urine Mucus Slight /HPF (None Seen); Urine Protein 1+ (Negative); Urine Urobilinogen Normal (Normal)
[2023-04-13] MEDS: ALPRAZOLAM 0.25 MG TABLET PO PRN (20:52)
[2023-04-13] MEDS: ATORVASTATIN 40 MG TAB PO SCH (20:53)
[2023-04-13] MEDS: TRAZODONE 50 MG TABLET PO SCH (20:53)
--- NOTE | 2023-04-13 21:02 | P.PN ---
Subjective Date of Service: 04/13/23 Chief Complaint: Weakness unable to walk No new changes. His WBC continues to up-trend, but there is no obvious source of infection. He denies any chest pain, palpitations, or shortness of breath. Review of Systems 10-point ROS is otherwise unremarkable General: Weakness (generalized) Physical Examination - Vital Signs Temperature: 97.7 F Blood Pressure: 150/82 Pulse: 85 Respirations: 14 Pulse Ox (%): 98 Assessment And Plan - Plan - Physical Exam General: Alert, In no apparent distress, Oriented x3 HEENT: Atraumatic, EOMI, Sclerae nonicteric Respiratory: Clear to auscultation bilaterally, Normal air movement Cardiovascular: No edema, Regular rate/rhythm, No murmurs Gastrointestinal: Normal bowel sounds, Soft, Non-distended, No tenderness Musculoskeletal: No clubbing Integumentary: No rashes Neurological: Normal speech, Normal tone, Sensation intact, Cranial nerves 3-12 intact, Normal affect, Abnormal strength (4/5 strength in RUE/RLE. 5/5 strength in LUE/LLE) NIH Stroke Scale 1a. Level of consciousness: 0 - Alert; keenly responsive 1b. LOC questions: 0 - Both questions right 1c. LOC commands: 0 - Performs both tasks 2. Best Gaze: 0 - Normal 3. Visual: 0 - No visual loss 4. Facial Palsy: 0 - Normal symmetry 5a. Motor left arm: 0 - No drift for 10 seconds 5b. Motor right arm: 0 - No drift for 10 seconds 6a. Motor left le - No drift for 5 seconds 6b. Motor right le - Drift, but doesn't hit bed 7. Limb ataxia: 0 - No ataxia 8. Sensory: 0 - Normal; no sensory loss 9. Best Language: 0 - Normal; no aphasia 10. Dysarthria: 0 - Normal 11. Extinction and Inattention: 0 - No abnormality 12. Distal motor function: 0 - No abnormality Total Score: 1 # History of Right Frontal Lobe Cerebrovascular Accident (December 2022) # History of Left Frontal Lobe Cerebrovascular Accident # Moderate-Severe Bilateral Carotid Artery Stenosis # SIRS Criteria (Leukocytosis, Tachycardia) without evidence of infection - Evaluation thus far: - Chest x-ray = "no acute cardiopulmonary disease." - CT head = "no acute intracranial abnormality is seen" - Ordered urinalysis and blood cultures - Per Mr. Eduardo, no new or worsening neurologic deficits - Management plan: - Consulted Neurology and spoke with Dr. Ward - recommendations appreciated - Continue aspirin, atorvastatin, folic acid, clopidogrel - Consult PT/OT - appreciate CM assistance with possible placement - q4hour neuro checks # Depression with history of Suicidal Ideation - He denies any suicidal ideation, intention, or plan currently - Consulted Psychiatry and spoke with Dr. Ross - recommendations appreciated - Recommended increasing his sertraline to 150 mg daily # Acute Kidney Injury on Chronic Kidney Disease Stage III - Monitor creatinine and urine output - If worsening, obtain renal ultrasound - Renally dose medications # Type II Diabetes Mellitus - Continue home insulin + glimepiride # Hypertension - Continue home amlodipine, metoprolol Roger Franklin M.D.
[2023-04-14 03:16] LABS: Absolute Lymphocytes (CBC) 2.1 K/uL (0.7-4.9); Hematocrit 46.3 % (39.6-49.0); Lymphocytes % 14.3 % (15.3-44.8); MCV 84.9 fL (80-100); RBC Red Blood Cell Count 5.45 M/uL (4.33-5.43)
[2023-04-14 03:35] LABS: Magnesium 2.1 mg/dL (1.6-2.4); Phosphorus 3.3 mg/dL (2.5-4.9); Potassium 4.2 mEq/L (3.5-5.1)
[2023-04-14] MEDS: CLOPIDOGREL 75 MG TABLET PO SCH (09:41)
[2023-04-14] MEDS: METOPROLOL TAR 25 MG TAB PO SCH (09:41)
[2023-04-14] MEDS: SERTRALINE HCL 50 MG TAB PO SCH (09:41)
[2023-04-14] MEDS: TAMSULOSIN 0.4 MG SR CAP PO SCH (09:41)
[2023-04-14] MEDS: BUPROPION HCL XL 150 MG TAB PO SCH (09:41)
[2023-04-14] MEDS: AMLODIPINE 10 MG TAB PO SCH (09:42)
[2023-04-14] MEDS: ASPIRIN 81 MG CHEWABLE TABLET PO SCH (09:42)
[2023-04-14] MEDS: glipiZIDE 5 MG TAB PO SCH (09:42)
[2023-04-14 09:51] VITALS: O2SAT 99
--- NOTE | 2023-04-14 14:08 | P.DS ---
Admission Date: 04/08/23 Discharge Date: 04/14/23 Disposition: TRANSFER TO CARE HOME Reason for Admission: Weakness unable to walk Consultations: 1. Neurology 2. Psychiatry Hospital Course: DIAGNOSES: # History of Right Frontal Lobe Cerebrovascular Accident (December 2022) # History of Left Frontal Lobe Cerebrovascular Accident # Moderate-Severe Bilateral Carotid Artery Stenosis # SIRS Criteria (Leukocytosis, Tachycardia) without evidence of infection # Depression with history of Suicidal Ideation # Acute Kidney Injury on Chronic Kidney Disease Stage III # Type II Diabetes Mellitus # Hypertension HOSPITAL COURSE: Mr. Cristobal Eduardo is a 57-year-old male with a past medical history significant for prior right frontal and left frontal lobe cerebrovascular accidents, moderatesevere bilateral carotid artery stenosis, depression, chronic kidney disease stage III, type 2 diabetes mellitus, and hypertension who was admitted to the [facility] on 04/08/2023 for generalized weakness. He was admitted to the Medicine service. Upon further evaluation, his chest x- ray revealed, "no acute cardiopulmonary disease." His CT head revealed, "no acute intracranial abnormality is seen." Neurology was consulted and he was evaluated by Dr. Ward. He had no reported changes in his neurologic symptoms, so Dr. Ward had cleared him for discharge with aspirin, folic acid, atorvastatin, and clopidogrel. Physical Therapy was consulted and it was recommended that he be discharged to a halfway facility. With the assistance of case management, he was accepted to [facility]. Incidentally, he was found to develop a leukocytosis, which improved without intervention. He denied any symptoms. There were no sources of infection, specifically, his urinalysis and chest x-ray were unremarkable. Blood cultures have shown no growth to date. He has not complained of any fevers, chills, diarrhea. He does not have any obvious skin wounds/infections. I reviewed his case with Dr. Weinstein (Infectious Diseases), who stated that this may be reactive leukocytosis and no antibiotic therapy is indicated at this time. Mr. Eduardo was informed of this finding, so that it can continue to be followed at [facility]. In regards to his renal function, I spoke with his Derrick Follower (Dr. Santamaria), who confirmed that his baseline creatinine in his office has been between 1.92.0. Additionally, Psychiatry was consulted due to his history of suicidal ideation. He was evaluated by Dr. Ross, who recommended that his sertraline dose be increased from 100 mg to 150 mg. At the time of discharge, he denies any suicidal ideation, intention, or plan. On 04/14/2023, he was seen on rounds and deemed medically stable for discharge. He was discharged with instructions to schedule follow-up appointments with his PCP, his Derrick Follower (Dr. Santamaria), and with Neurology (Dr. Ward). He was given the opportunity to ask questions and reported no further questions. Furthermore, all questions were answered to the best of my ability. A copy of this discharge summary will be sent to the above providers to facilitate continuity of care. Today, I personally spent 25 minutes on his case, of which greater than 50% of the time was spent in patient education, counseling, and coordination of care as described above. - Physical Exam General: Alert, In no apparent distress, Oriented x3 HEENT: Atraumatic, Sclerae nonicteric Respiratory: Clear to auscultation bilaterally, Normal air movement Cardiovascular: No edema, Regular rate/rhythm, No murmurs Gastrointestinal: Normal bowel sounds, Soft, Non-distended, No tenderness Musculoskeletal: No clubbing Integumentary: No rashes Neurological: Normal speech, Normal tone, Sensation intact, Cranial nerves 3-12 intact, Normal affect, Abnormal strength (4/5 strength in RUE/RLE. 5/5 strength in LUE/LLE) NIH Stroke Scale 1a. Level of consciousness: 0 - Alert; keenly responsive 1b. LOC questions: 0 - Both questions right 1c. LOC commands: 0 - Performs both tasks 2. Best Gaze: 0 - Normal 3. Visual: 0 - No visual loss 4. Facial Palsy: 0 - Normal symmetry 5a. Motor left arm: 0 - No drift for 10 seconds 5b. Motor right arm: 0 - No drift for 10 seconds 6a. Motor left le - No drift for 5 seconds 6b. Motor right le - Drift, but doesn't hit bed 7. Limb ataxia: 0 - No ataxia 8. Sensory: 0 - Normal; no sensory loss 9. Best Language: 0 - Normal; no aphasia 10. Dysarthria: 0 - Normal 11. Extinction and Inattention: 0 - No abnormality 12. Distal motor function: 0 - No abnormality Total Score: 1 Vital Signs/Physical Exam: Temp Pulse Resp BP Pulse Ox 97.1 F 79 19 160/89 H 99 04/14/23 08:00 04/14/23 08:00 04/14/23 08:00 04/14/23 08:00 04/14/23 08:00 Laboratory Data at Discharge: WBC 14.80 thou/uL (4.3-10.9) H 04/14/23 02:42 Hgb 15.6 g/dL (13.6-17.9) 04/14/23 02:42 Hct 46.3 % (39.6-49.0) 04/14/23 02:42 Plt Count 266 thou/uL (152-406) 04/14/23 02:42 Sodium 138 mEq/L (136-145) 04/14/23 02:42 Potassium 4.2 mEq/L (3.5-5.1) 04/14/23 02:42 BUN 37 mg/dL (7-18) H 04/14/23 02:42 Creatinine 1.91 mg/dL (0.70-1.30) H 04/14/23 02:42 Glucose 115 mg/dL (74-106) H 04/14/23 02:42 Phosphorus 3.3 mg/dL (2.5-4.9) 04/14/23 02:42 Magnesium Cancelled 04/14/23 05:00 Total Bilirubin 0.3 mg/dL (0.2-1.0) 04/08/23 18:13 AST 32 U/L (15-37) 04/08/23 18:13 ALT 60 U/L (16-61) 04/08/23 18:13 Alkaline Phosphatase 104 U/L (45-117) 04/08/23 18:13 Home Medications: Metoprolol Tartrate [Lopressor*] 25 mg PO BID #60 tab 06/03/22 Bupropion *Xl* [Wellbutrin XL*] 1 tab PO DAILY 01/01/23 Trazodone [Desyrel*] 50 mg PO BEDTIME 01/01/23 Aspirin Chewable [Aspirin Chewable*] 81 mg PO DAILY #1 tab.chew 01/06/23 Atorvastatin Calcium 40 mg PO BEDTIME #30 tab 01/06/23 Clopidogrel Bisulfate [Plavix*] 75 mg PO DAILY #30 tab 01/06/23 Amlodipine [Norvasc*] 1 tab PO DAILY 04/08/23 Buspirone HCl [Buspar] 1 tab PO PRN PRN 04/08/23 Nitroglycerin 1 tab PO PRN PRN 04/08/23 Tamsulosin [Flomax*] 1 cap PO DAILY 04/08/23 glipiZIDE [Glipizide] 1 tab PO DAILY 04/08/23 Sertraline [Zoloft*] 150 mg PO DAILY tab 04/14/23 Physician Discharge Instructions: 1. Please call and schedule a follow-up appointment with your PCP in 3-5 days - Your white blood cell count was elevated, but no source of infection has been found. Please have your PCP repeat your blood test 2. Please call and schedule a follow-up appointment with your Derrick Follower (Dr. Santamaria) in 3-5 days 3. Please call and schedule a follow-up appointment with your Neurologist (Dr. Ward) in 5-7 days Diet: AHA Activity: Ad carlos alberto Time spent managing pt's care (in minutes): 25
[2023-04-14 17:02] VITALS: BP 143/74; TEMP 97.9
[2023-04-14 17:46] LABS: SARS-COV-2 RT PCR NEGATIVE (NEGATIVE)
== END 2023-04-14 18:40 ==
LOC: ER 17:33 → 2ND 20:55 → INTOOBSV 20:55 → 2ND 21:24
PROVIDERS: ADMIT Internal Medicine Sleep Medicine; ATTEND Internal Medicine
DX: R53.1 Weakness (principal); Z86.73 Personal history of transient ischemic attack (TIA), and cerebral infarction without residual deficits; F32.A Depression, unspecified; N17.9 Acute kidney failure, unspecified; E11.65 Type 2 diabetes mellitus with hyperglycemia; E11.22 Type 2 diabetes mellitus with diabetic chronic kidney disease; I12.9 Hypertensive chronic kidney disease with stage 1 through stage 4 chronic kidney disease, or unspecified chronic kidney disease; N18.32 Chronic kidney disease, stage 3b; I65.23 Occlusion and stenosis of bilateral carotid arteries; E78.5 Hyperlipidemia, unspecified; R62.7 Adult failure to thrive; Z91.81 History of falling; Z20.822 Contact with and (suspected) exposure to COVID-19
CPT/HCPCS: 96361; 93005; 87040 ×2; 85025 ×7; 81001; 80048 ×5; 36415 ×5; 83735 ×5; 82550; 84100 ×4; 84484; 80053; 0240U; 70450; 71045 ×2; 97110 ×2; 97112; 97161; 97530 ×3; 96360; 99285; J7030; J0696; G0378; J2405